=== PATIENT | female | born 1975 | race Caucasian/White ===

== ENCOUNTER 2018-10-02 21:04 | Emergency (ER) | payer OTHER, SELFPAY ==
[2018-10-02 21:09] VITALS: BP 163/100; PULSE 98; RESP 24; O2SAT 98
--- NOTE | 2018-10-02 21:18 | ED.NAVMDI ---
HPI - Nausea/Vomiting/Diarrhea General Chief complaint: Nausea/Vomiting/Diarrhea Stated complaint: nausea,vomiting Time Seen by Provider: 10/02/18 21:16 Source: patient and family Mode of arrival: ambulatory Limitations: no limitations History of Present Illness HPI Narrative: Patient is a 42-year-old female with which she states is a history of cyclic vomiting syndrome. She states that she has had a bad week she states that she has had a lot of anxiety over the week. In review of her medical history it appears that she has had multiple workups in the past for abdominal pain and the vomiting. Has been admitted to the hospital in the past for these symptoms. She states she has Zofran and Ativan at home. She took that prior to arrival here in the emergency department. She states that it has not helped. She states that when she gets into these situations that she comes to the emergency department and she gets snowed and IV fluids and admitted to the hospital for 2 or 3 days. Related Data Home Medications Medication Instructions Recorded Confirmed [ACTILACAID] 1 tab PO QDAY #0 07/27/17 coenzyme Q10 [Co Q-10] 100 mg PO QDAY #0 07/27/17 diphenhydramine HCl [Benadryl 25 mg PO Q6HP #0 07/27/17 Allergy] Previous Rx's Medication Instructions Recorded ondansetron [Zofran ODT] 4 mg SUBLINGUAL Q6HP PRN #20 odt 02/19/17 sumatriptan [Imitrex] 20 mg INTRANASAL QDAYP PRN #10 spr 02/19/17 lorazepam [Ativan] 1 mg PO BIDP PRN #5 tab 04/09/17 pantoprazole [Protonix] 40 mg PO QDAY #30 tab 06/11/17 hydrocodone-acetaminophen 0 tab PO Q6HP PRN #15 tab 07/27/17 ondansetron [Zofran ODT] 4 mg PO Q8-12H PRN #20 tab 10/03/18 Allergies Allergy/AdvReac Type Severity Reaction Status Date / Time promethazine [PROMETHAZINE] Allergy Mild ERYTHEMA Unverified 03/09/18 11:56 TO IV SITE PT STATES ABLE TO TAKE VT latex [LATEX] Allergy Unknown Unverified 03/09/18 11:56 metoclopramide AdvReac Unknown DYSTONIA Unverified 03/09/18 11:56 [METOCLOPRAMIDE] Review of Systems Cardiovascular Denies chest pain and Denies dyspnea Respiratory Denies dyspnea Gastrointestinal Gastrointestinal: Reports abdominal pain, Reports nausea and Reports vomiting Genitourinary Denies dysuria Integumentary/Breasts Denies rash PFSH Medical History Chronic abdominal pain (Acute) Cyclic vomiting syndrome (Acute) Pancreatitis (Acute) Surgical History No pertinent past surgical history (Acute) Exam Initial Vital Signs Initial Vital Signs: Vital Signs Pulse Rate 98 H 10/02/18 21:09 Respiratory Rate 24 10/02/18 21:09 Blood Pressure 163/100 H 10/02/18 21:09 Pulse Oximetry 98 10/02/18 21:09 Const General: cooperative and anxious Orientation: alert and awake Other: very hysterical, rolling around the bed, vomiting in front of me, gagging HENMT Head: normal to inspection and normocephalic Resp Effort & Inspection: normal respiratory effort Cardio Rate: regular rate GI Other: patient with tenderness throughout palpation. Would barely let me touch her without jumping and moving around the bed Skin Lesions: no lesions Rashes: no rashes Neuro General: alert and awake Speech: speech normal Extrem General: normal to inspection Other: no gross deformities Psych Appearance: disheveled Speech and Movement: agitated and restless Mood: anxious mood and angry Affect: animated and irritable affect Attitude: cooperative Course Orders Ordered: ED Orders 10/02/18 21:25 Complete Blood Count AUTO DIFF Stat Comprehensive Metabolic Panel Stat Lipase Stat Discontinued Medications Haloperidol (Haldol) 5 mg IV NOW ONE Stop: 10/02/18 21:38 Last Admin: 10/02/18 21:45 Dose: 5 mg Sodium Chloride (Normal Saline 0.9%) 1,000 mls @ 1,000 mls/hr IV BOLUS ONE Stop: 10/02/18 22:36 Last Infusion: 10/02/18 23:08 Dose: 0 mls/hr Admin: 10/02/18 21:45 Dose: 1,000 mls/hr Lorazepam (Ativan) 2 mg IV NOW ONE Stop: 10/02/18 21:38 Last Admin: 10/02/18 21:45 Dose: 2 mg Vital Signs - 8 hr 10/02/18 21:09 10/02/18 22:02 10/02/18 22:53 Pulse Rate 98 H 64 65 Respiratory Rate 24 Blood Pressure 163/100 H Blood Pressure [Right Arm] Pulse Oximetry 98 100 100 10/03/18 01:12 10/03/18 03:06 10/03/18 04:12 Pulse Rate 50 L 62 62 Respiratory Rate 16 16 Blood Pressure Blood Pressure [Right Arm] 147/97 H 106/64 99/66 Pulse Oximetry 100 100 99 MDM - Nausea/Vomiting/Diarrhea Medical Records Attestation: I reviewed the patient's medical records. Lab Data Attestation: I reviewed the patient's lab results. Result diagrams: 10/02/18 21:25 10/02/18 21:25 Lab Results 10/02/18 10/02/18 Range/Units 21:25 21:25 WBC 11.6 H (4.5-11.0) X10^3/uL RBC 4.72 (4.0-5.2) X10^6/uL Hgb 14.9 (12.0-16.0) g/dL Hct 43.4 (36-46) % MCV 92.1 (80-100) fL MCH 31.6 (26-34) PG MCHC 34.3 (30-36) % RDW 13.1 (11.6-14.8) % Plt Count 250 (150-400) X10^3/uL Neut % (Auto) 63.0 (50-75) % Lymph % (Auto) 28.7 (25-40) % [place] % (Auto) 7.0 (3-14) % Eos % (Auto) 0.2 L (2-4) % Baso % (Auto) 1.1 (0-2) % Neut # (Auto) 7300 H (4985-6757) /uL Sodium 146 H (137-145) mmol/L Potassium 3.2 L (3.4-5.1) mmol/L Chloride 96 L (98-107) mmol/L Carbon Dioxide 30 (22-32) mmol/L BUN 20 H (7-17) mg/dL Creatinine 0.90 (0.52-1.04) mg/dL Estimated GFR > 60.0 (>60) mL/min BUN/Creatinine Ratio 22.2 H (6-22) Glucose 134 H (70-100) mg/dL Calcium 10.2 (8.4-10.2) mg/dL Total Bilirubin 1.7 H (0.2-1.3) mg/dL AST 31 (14-36) IU/L ALT 24 (9-52) IU/L Alkaline Phosphatase 66 (38-126) U/L Total Protein 9.4 H (6.3-8.2) g/dL Albumin 5.3 H (3.5-5.0) g/dL Globulin 4.1 (1.7-4.1) g/dL Albumin/Globulin Ratio 1.3 (1.0-2.8) Lipase 61 (23-300) U/L MDM Narrative Medical decision making narrative: patient has remained in the emergency department for about 8 hr. During our initial evaluation the patient stated that she needed Dilaudid because that is how she has always treated for this situation. I informed her that I do not treat cyclic vomiting syndrome with opioid pain medication. I informed her that we could try non opioid alternatives. She was given Ativan and Haldol shortly after arrival and the patient spent greater than 5 hr in the room without asking for any more nausea medications. She did sleep for a period of time. Her stated whenever you gave her knocked her out I went in to re-evaluate the patient. Informed her that I could refill her Zofran. Offered her rectal Phenergan and she stated she had this medication at home. I do not feel that she needs admitted to the hospital for this. Informed her that she needed to contact her primary care doctor today to discuss further workup and any further medications if she needed this. Patient seemed very upset about our conversations and the fact that I was not giving her medications that she wanted. Discharge Plan Departure Patient Disposition: Home Clinical Impression: Nausea & vomiting Instructions: Nausea (Alternative Therapy), DI for Vomiting -- Adult, Nausea and Vomiting-Adult Activity Restrictions/Additional Instructions: I recommend you contact your primary care doctor today to discuss further workup. I recommend you drink small amounts of fluid over longer periods of time to prevent dehydration. You can use the Zofran that you were given a prescription for today or the rectal Phenergan that you have at home for the nausea. Continue all of your medications as directed. Prescriptions: New ondansetron [Zofran ODT] 4 mg tablet,disintegrating 4 mg PO Q8-12H PRN (Reason: nausea and vomiting) Qty: 20 RF: 0 No Action sumatriptan [Imitrex] 20 MG spray,non-aerosol 20 mg Intranasal QDAYP PRNQty: 10 RF: 5 ondansetron [Zofran ODT] 4 MG tablet,disintegrating 4 mg Sublingual Q6HP PRNQty: 20 RF: 0 lorazepam [Ativan] 1 MG tablet 1 mg PO BIDP PRNQty: 5 RF: 0 pantoprazole [Protonix] 40 MG tablet,delayed release (DR/EC) 40 mg PO QDAY Qty: 30 RF: 0 hydrocodone-acetaminophen 5 MG/325 MG tablet PO Q6HP PRNQty: 15 RF: 0 diphenhydramine HCl [Benadryl Allergy] 25 MG tablet 25 mg PO Q6HP Qty: 0 RF: 0 coenzyme Q10 [Co Q-10] 100 MG capsule 100 mg PO QDAY Qty: 0 RF: 0 [ACTILACAID] 1 tab PO QDAY Qty: 0 RF: 0
[2018-10-02] MEDS: SODIUM CHLORIDE 0.9% 1,000 ML 1000 ML IV (21:45)
[2018-10-02] MEDS: HALOPERIDOL 5 MG/ML VIAL IV (21:45)
[2018-10-02] MEDS: LORazepam 2 MG/ML SYRINGE IV (21:45)
[2018-10-02 21:49] LABS: Alanine Aminotransferase 24 IU/L (9-52); Albumin 5.3 g/dL (3.5-5.0); Albumin Globulin Ratio 1.3 (1.0-2.8); Alkaline Phosphatase 66 U/L (38-126); Aspartate Aminotransferase 31 IU/L (14-36); BUN Creatinine Ratio 22.2 (6-22); Bilirubin Total 1.7 mg/dL (0.2-1.3); Blood Urea Nitrogen 20 mg/dL (7-17); Calcium 10.2 mg/dL (8.4-10.2); Carbon Dioxide 30 mmol/L (22-32); Chloride 96 mmol/L (98-107); Estimated Glomerular Filt Rate > 60.0 mL/min (>60); Globulin 4.1 g/dL (1.7-4.1); Glucose 134 mg/dL (70-100); HEMOLYSIS < 15 (0-50); Lipase 61 U/L (23-300); Potassium 3.2 mmol/L (3.4-5.1); Sodium 146 mmol/L (137-145); Total Protein 9.4 g/dL (6.3-8.2)
[2018-10-02 21:50] LABS: Add Manual Diff / Slide Review NO; Basophils Percent Auto 1.1 % (0-2); Eosinophils Percent Auto 0.2 % (2-4); Hematocrit 43.4 % (36-46); Hemoglobin 14.9 g/dL (12.0-16.0); Lymphocytes Percent Auto 28.7 % (25-40); Mean Corpuscular HGB Conc 34.3 % (30-36); Mean Corpuscular Hemoglobin 31.6 PG (26-34); Mean Corpuscular Volume 92.1 fL (80-100); Neutrophils Absolute Auto 7300 /uL (3000-5900); Platelet Count 250 X10^3/uL (150-400); Red Blood Cell Count 4.72 X10^6/uL (4.0-5.2); Red Cell Distribution Width 13.1 % (11.6-14.8); White Blood Cell Count 11.6 X10^3/uL (4.5-11.0)
--- NOTE | 2018-10-02 21:55 | PC.NURSE ---
pt and spouse report frequent hx of similar episodes, states cyclic vomiting syndrome, no relief from home rx, pt alert, retching at time of exam, denies abd pain/bowel changes/urinary sx/trauma/etoh/fever or recent illness
[2018-10-02 22:02] VITALS: PULSE 64; O2SAT 100
[2018-10-02 22:53] VITALS: PULSE 65; O2SAT 100
[2018-10-03 01:12] VITALS: BP 147/97; PULSE 50; RESP 16; O2SAT 100
[2018-10-03 03:06] VITALS: BP 106/64; PULSE 62; O2SAT 100
[2018-10-03 04:12] VITALS: BP 99/66; PULSE 62; RESP 16; O2SAT 99
[2018-10-03] MEDS: ONDANSETRON 4 MG ODT PREPACK 1 BOTTLE MISC (05:15)
[2018-10-03 05:24] VITALS: BP 112/76; PULSE 74; RESP 16; TEMP 36.9; O2SAT 100
== END 2018-10-03 05:26 | disposition home or self-care (01) ==
PROVIDERS: Emergency Provider Emergency Medicine
DX: R11.2 Nausea with vomiting, unspecified (principal)
CPT/HCPCS: 36591; 80053; 83690; 85025; 96361; 96374; 96375; 99283; 99284; J1630; J2060

== ENCOUNTER 2018-10-12 20:35 | Emergency (ER) | payer OTHER, SELFPAY ==
[2018-10-12 20:46] VITALS: BP 125/93; PULSE 112; RESP 24; TEMP 36.4; O2SAT 97
--- NOTE | 2018-10-12 21:20 | ED.NAVMDI ---
HPI - Nausea/Vomiting/Diarrhea General Chief complaint: Nausea/Vomiting/Diarrhea Stated complaint: UNABLE TO KEEP ANYTHING DOWN SINCE 09/28/18 Time Seen by Provider: 10/12/18 20:49 Source: patient Mode of arrival: ambulatory Limitations: no limitations History of Present Illness HPI Narrative: Patient is a 42-year-old female who I have evaluated in this emergency department in the past for cyclic vomiting syndrome. Last time I saw the patient was approximately 2 weeks ago. During that visit a give the patient Haldol and Ativan. I refused to give her opioid pain medication. Patient was discharged home. Patient states that since then she has still been unable to keep anything down. She states she went to another hospital after her last visit however was not admitted. She returns today for continued abdominal pain and nausea and vomiting. Related Data Home Medications Medication Instructions Recorded Confirmed [ACTILACAID] 1 tab PO QDAY #0 07/27/17 coenzyme Q10 [Co Q-10] 100 mg PO QDAY #0 07/27/17 diphenhydramine HCl [Benadryl 25 mg PO Q6HP #0 07/27/17 Allergy] Previous Rx's Medication Instructions Recorded ondansetron [Zofran ODT] 4 mg SUBLINGUAL Q6HP PRN #20 odt 02/19/17 sumatriptan [Imitrex] 20 mg INTRANASAL QDAYP PRN #10 spr 02/19/17 lorazepam [Ativan] 1 mg PO BIDP PRN #5 tab 04/09/17 pantoprazole [Protonix] 40 mg PO QDAY #30 tab 06/11/17 hydrocodone-acetaminophen 0 tab PO Q6HP PRN #15 tab 07/27/17 ondansetron [Zofran ODT] 4 mg PO Q8-12H PRN #20 tab 10/03/18 Allergies Allergy/AdvReac Type Severity Reaction Status Date / Time promethazine [PROMETHAZINE] Allergy Mild ERYTHEMA Unverified 03/09/18 11:56 TO IV SITE PT STATES ABLE TO TAKE NC latex [LATEX] Allergy Unknown Unverified 03/09/18 11:56 metoclopramide AdvReac Unknown DYSTONIA Unverified 03/09/18 11:56 [METOCLOPRAMIDE] Review of Systems Constitutional Denies fever(s) Cardiovascular Denies chest pain and Denies dyspnea Respiratory Denies dyspnea Gastrointestinal Gastrointestinal: Reports abdominal pain, Reports nausea and Reports vomiting Genitourinary Denies dysuria Musculoskeletal Denies myalgias and Denies arthralgias Integumentary/Breasts Denies lesions and Denies rash Neurologic Denies confusion Psychiatric Denies confusion [facility] Medical History Chronic abdominal pain (Acute) Cyclic vomiting syndrome (Acute) Pancreatitis (Acute) Surgical History No pertinent past surgical history (Acute) Exam Initial Vital Signs Initial Vital Signs: Vital Signs Temperature 97.6 F 10/12/18 20:46 Pulse Rate 112 H 10/12/18 20:46 Respiratory Rate 24 10/12/18 20:46 Blood Pressure 125/93 H 10/12/18 20:46 Pulse Oximetry 97 10/12/18 20:46 Const General: cooperative, well groomed, in distress and other (Rolling around in the bed) Orientation: alert, awake and oriented x3 HENMT Head: normal to inspection and normocephalic Cardio Rate: tachycardic Rhythm: regular rhythm Pulses: radial pulses present GI Inspection: non-distended Palpation: soft and tender (Generalized tenderness) Skin Lesions: no lesions Rashes: no rashes Neuro General: alert, awake and oriented x3 Extrem General: normal to inspection and capillary refill normal Psych Appearance: grossly normal and well kempt Course Orders Ordered: ED Orders 10/12/18 21:35 Complete Blood Count AUTO DIFF Stat Comprehensive Metabolic Panel Stat Lipase Stat Lactated Ringer's (Lactated Ringers) 1,000 mls @ 150 mls/hr IV CONT LINDA Last Admin: 10/13/18 02:45 Dose: 150 mls/hr Discontinued Medications Haloperidol (Haldol) 5 mg IV NOW ONE Stop: 10/12/18 21:42 Last Admin: 10/12/18 21:55 Dose: 5 mg Sodium Chloride (Normal Saline 0.9%) 1,000 mls @ 1,000 mls/hr IV BOLUS ONE Stop: 10/12/18 22:40 Last Infusion: 10/12/18 22:54 Dose: 0 mls/hr Admin: 10/12/18 21:55 Dose: 1,000 mls/hr Sodium Chloride (Normal Saline 0.9%) 1,000 mls @ 1,000 mls/hr IV BOLUS ONE Stop: 10/13/18 01:46 Last Infusion: 10/13/18 00:58 Dose: 0 mls/hr Admin: 10/13/18 00:00 Dose: 1,000 mls/hr Lactated Ringer's (Lactated Ringers) 1,000 mls @ 1,000 mls/hr IV BOLUS ONE Stop: 10/13/18 01:46 Last Infusion: 10/13/18 02:00 Dose: 1,000 mls/hr Admin: 10/13/18 00:57 Dose: 1,000 mls/hr Potassium Chloride 20 meq/ (Sodium Chloride) 260 mls @ 130 mls/hr IV NOW ONE Stop: 10/13/18 03:15 Last Infusion: 10/13/18 04:00 Dose: 130 mls/hr Admin: 10/13/18 01:56 Dose: 130 mls/hr Lorazepam (Ativan) 1 mg IV NOW ONE Stop: 10/12/18 21:42 Last Admin: 10/12/18 21:55 Dose: 1 mg Ondansetron HCl (Zofran) 4 mg IV NOW ONE Stop: 10/12/18 21:42 Last Admin: 10/12/18 21:55 Dose: 4 mg Vital Signs - 8 hr 10/12/18 20:46 10/12/18 23:09 10/12/18 23:44 Temperature 97.6 F Pulse Rate 112 H 79 72 Respiratory Rate 24 14 Blood Pressure 125/93 H Blood Pressure [Left Arm] 98/61 Blood Pressure [Right Arm] Pulse Oximetry 97 97 96 10/13/18 01:41 10/13/18 04:03 Temperature Pulse Rate 65 67 Respiratory Rate 20 17 Blood Pressure Blood Pressure [Left Arm] Blood Pressure [Right Arm] 104/69 100/54 L Pulse Oximetry 99 100 MDM - Nausea/Vomiting/Diarrhea Lab Data Attestation: I reviewed the patient's lab results. Result diagrams: 10/12/18 21:35 10/12/18 21:35 Lab Results 10/12/18 10/12/18 Range/Units 21:35 21:35 WBC 8.6 (4.5-11.0) X10^3/uL RBC 5.20 (4.0-5.2) X10^6/uL Hgb 16.6 H (12.0-16.0) g/dL Hct 47.6 H (36-46) % MCV 91.4 (80-100) fL MCH 31.9 (26-34) PG MCHC 34.9 (30-36) % RDW 13.0 (11.6-14.8) % Plt Count 248 (150-400) X10^3/uL Neut % (Auto) 70.2 (50-75) % Lymph % (Auto) 22.1 L (25-40) % [place] % (Auto) 6.7 (3-14) % Eos % (Auto) 0.3 L (2-4) % Baso % (Auto) 0.7 (0-2) % Neut # (Auto) 6100 H (8258-2056) /uL Sodium 139 (137-145) mmol/L Potassium 3.0 L (3.4-5.1) mmol/L Chloride 86 L (98-107) mmol/L Carbon Dioxide 35 H (22-32) mmol/L BUN 22 H (7-17) mg/dL Creatinine 0.90 (0.52-1.04) mg/dL Estimated GFR > 60.0 (>60) mL/min BUN/Creatinine Ratio 24.4 H (6-22) Glucose 126 H (70-100) mg/dL Calcium 9.7 (8.4-10.2) mg/dL Total Bilirubin 1.1 (0.2-1.3) mg/dL AST 23 (14-36) IU/L ALT 22 (9-52) IU/L Alkaline Phosphatase 62 (38-126) U/L Total Protein 8.4 H (6.3-8.2) g/dL Albumin 4.9 (3.5-5.0) g/dL Globulin 3.5 (1.7-4.1) g/dL Albumin/Globulin Ratio 1.4 (1.0-2.8) Lipase 147 (23-300) U/L Point of Care Testing Test Results Negative Urine Dip Bedside Urine Glucose Negative Bedside Urine Bilirubin - Negative Bedside Urine Ketone + 15 Urine Specific [place] 1.020 Bedside Urine Occult Blood - Negative Bedside Urine Protein +/- 15 Bedside Urine Urobilinogen +/- 1mg Bedside Urine Nitrite - Negative Bedside Urine Leukocytes - Negative Esterase [facility] Narrative Medical decision making narrative: Patient presents today with the same symptoms that she had during her last visit here in the emergency department. Her electrolytes were unremarkable except for potassium of 3.0. This was replaced IV. Patient was given a total of 3 L of fluids. She did tolerate small amount of ice chips. Again patient was upset about being discharged home. She stated that she needed admitted to the hospital. I feel like we did everything in the emergency department that they would do as an inpatient. I rehydrated her, I replaced her electrolytes, she has nausea medication at home, I do not feel that she has an acute intra-abdominal pathology that requires CT scanning. I informed the patient that she needed to contact her GI provider at [facility]. I informed her that if her GI provider thought that she needed admitted to the hospital that they could arrange for this to happen. I informed her that we do not have a GI provider here at this hospital and that in the future it may be better for her to contact her GI provider before coming to the emergency department to see if she would be better off treated at [facility] where her specialist is located. She was instructed that she could return to the emergency department at any time if needed. Patient was obviously upset about this decision. Discharge Plan Departure Patient Disposition: Home Clinical Impression: Nausea and vomiting, Abdominal pain, Hypokalemia Instructions: DI for Vomiting -- Adult Activity Restrictions/Additional Instructions: I would recommend you contact your business law instructor later today to discuss further workup. If he/she feels like he needed admitted to the hospital then they can arrange for this to happen. I would recommend small amounts of fluid. You can do ice chips and popsicles. I would also recommend you contact your primary care doctor. Continue with the your nausea medication at home as directed. Prescriptions: No Action sumatriptan [Imitrex] 20 MG spray,non-aerosol 20 mg Intranasal QDAYP PRNQty: 10 RF: 5 ondansetron [Zofran ODT] 4 MG tablet,disintegrating 4 mg Sublingual Q6HP PRNQty: 20 RF: 0 lorazepam [Ativan] 1 MG tablet 1 mg PO BIDP PRNQty: 5 RF: 0 pantoprazole [Protonix] 40 MG tablet,delayed release (DR/EC) 40 mg PO QDAY Qty: 30 RF: 0 hydrocodone-acetaminophen 5 MG/325 MG tablet PO Q6HP PRNQty: 15 RF: 0 diphenhydramine HCl [Benadryl Allergy] 25 MG tablet 25 mg PO Q6HP Qty: 0 RF: 0 coenzyme Q10 [Co Q-10] 100 MG capsule 100 mg PO QDAY Qty: 0 RF: 0 [ACTILACAID] 1 tab PO QDAY Qty: 0 RF: 0 ondansetron [Zofran ODT] 4 mg tablet,disintegrating 4 mg PO Q8-12H PRN (Reason: nausea and vomiting) Qty: 20 RF: 0
[2018-10-12 21:54] LABS: Add Manual Diff / Slide Review NO; Alanine Aminotransferase 22 IU/L (9-52); Albumin 4.9 g/dL (3.5-5.0); Albumin Globulin Ratio 1.4 (1.0-2.8); Alkaline Phosphatase 62 U/L (38-126); Aspartate Aminotransferase 23 IU/L (14-36); BUN Creatinine Ratio 24.4 (6-22); Basophils Percent Auto 0.7 % (0-2); Bilirubin Total 1.1 mg/dL (0.2-1.3); Blood Urea Nitrogen 22 mg/dL (7-17); Calcium 9.7 mg/dL (8.4-10.2); Chloride 86 mmol/L (98-107); Eosinophils Percent Auto 0.3 % (2-4); Estimated Glomerular Filt Rate > 60.0 mL/min (>60); Globulin 3.5 g/dL (1.7-4.1); Glucose 126 mg/dL (70-100); HEMOLYSIS < 15 (0-50); Hematocrit 47.6 % (36-46); Hemoglobin 16.6 g/dL (12.0-16.0); Lipase 147 U/L (23-300); Lymphocytes Percent Auto 22.1 % (25-40); Mean Corpuscular HGB Conc 34.9 % (30-36); Mean Corpuscular Hemoglobin 31.9 PG (26-34); Mean Corpuscular Volume 91.4 fL (80-100); Monocytes Percent Auto 6.7 % (3-14); Neutrophils Absolute Auto 6100 /uL (3000-5900); Neutrophils Percent Auto 70.2 % (50-75); Platelet Count 248 X10^3/uL (150-400); Sodium 139 mmol/L (137-145); Total Protein 8.4 g/dL (6.3-8.2); White Blood Cell Count 8.6 X10^3/uL (4.5-11.0)
[2018-10-12] MEDS: LORazepam 2 MG/ML SYRINGE 1 MG IV (21:55)
[2018-10-12] MEDS: HALOPERIDOL 5 MG/ML VIAL IV (21:55)
[2018-10-12] MEDS: ONDANSETRON 4 MG/2 ML INJ IV (21:55)
[2018-10-12] MEDS: SODIUM CHLORIDE 0.9% 1,000 ML 1000 ML IV (21:55)
[2018-10-12 22:08] LABS: Carbon Dioxide 35 mmol/L (22-32)
[2018-10-12 23:09] VITALS: PULSE 79; RESP 14; O2SAT 97
[2018-10-12 23:44] VITALS: BP 98/61; PULSE 72; O2SAT 96
[2018-10-13] MEDS: SODIUM CHLORIDE 0.9% 1,000 ML 1000 ML IV
[2018-10-13] MEDS: LACTATED RINGERS 1,000 ML 1000 ML IV (00:57)
[2018-10-13 01:41] VITALS: BP 104/69; PULSE 65; RESP 20; O2SAT 99
[2018-10-13] MEDS: POTASSIUM CHLORIDE 20 MEQ in SODIUM CHLORIDE 0.9% 250 ML 130 ML IV (01:56)
[2018-10-13] MEDS: LACTATED RINGERS 1,000 ML 150 ML IV (02:45)
[2018-10-13 04:03] VITALS: BP 100/54; PULSE 67; RESP 17; O2SAT 100
== END 2018-10-13 04:30 | disposition home or self-care (01) ==
PROVIDERS: Emergency Provider Emergency Medicine; Family Provider Internal Medicine; PCP Internal Medicine
DX: E87.6 Hypokalemia (principal); R11.2 Nausea with vomiting, unspecified; R10.9 Unspecified abdominal pain
CPT/HCPCS: 36591; 80053; 81003; 81025; 83690; 85025; 96361; 96365; 96366; 96375; 99284; J1630; J2060; J2405; J3480

== ENCOUNTER 2019-08-11 08:59 | Emergency (ER) | payer OTHER, SELFPAY ==
[2019-08-11 09:11] VITALS: BP 140/85; PULSE 78; RESP 18; O2SAT 95
--- NOTE | 2019-08-11 09:25 | ED.NAVMDI ---
HPI - Nausea/Vomiting/Diarrhea <DO Omaira Henderson Last Filed: 08/11/19 09:47> General Chief complaint: Nausea/Vomiting/Diarrhea Stated complaint: Vomiting Time Seen by Provider: 08/11/19 10:01 Related Data Home Medications Medication Instructions Recorded Confirmed coenzyme Q10 [Co Q-10] 100 mg PO DAILY #0 07/27/17 08/11/19 diphenhydramine HCl [Benadryl 25 mg PO Q6HP #0 07/27/17 08/11/19 Allergy] hydrocodone-acetaminophen 1 tab PO Q6HP PRN 08/11/19 08/11/19 ibuprofen 800 mg PO DAILY 08/11/19 08/11/19 promethazine [Phenadoz] 25 mg HI TID PRN 08/11/19 08/11/19 sertraline 50 mg PO DAILY 08/11/19 08/11/19 simvastatin 5 mg PO SUSA 08/11/19 08/11/19 sumatriptan 0 mg INTRANASAL PRN PRN 08/11/19 08/11/19 Previous Rx's Medication Instructions Recorded lorazepam [Ativan] 1 mg PO BIDP PRN #5 tab 04/09/17 Allergies Allergy/AdvReac Type Severity Reaction Status Date / Time promethazine [PROMETHAZINE] Allergy Mild ERYTHEMA Verified 08/11/19 09:13 TO IV SITE PT STATES ABLE TO TAKE HI latex [LATEX] Allergy Unknown Verified 08/11/19 09:13 metoclopramide AdvReac Unknown DYSTONIA Verified 08/11/19 09:13 [METOCLOPRAMIDE] <PIPO Nichols - Last Filed: 08/11/19 16:56> General Source: patient and family Mode of arrival: ambulatory Limitations: no limitations PFSH <DO Omaira Henderson Last Filed: 08/11/19 09:47> Social History Smoking Status: Current every day smoker Exam <DO Omaira Henderson Last Filed: 08/11/19 09:47> Initial Vital Signs Initial Vital Signs: Vital Signs Pulse Rate 78 08/11/19 09:11 Respiratory Rate 18 08/11/19 09:11 Blood Pressure 140/85 08/11/19 09:11 Pulse Oximetry 95 08/11/19 09:11 <PIPO Nichols - Last Filed: 08/11/19 16:56> Initial Vital Signs Initial Vital Signs: Vital Signs Pulse Rate 78 08/11/19 09:11 Respiratory Rate 18 08/11/19 09:11 Blood Pressure 140/85 08/11/19 09:11 Pulse Oximetry 95 08/11/19 09:11 Course <Janis Saxena, - Last Filed: 08/11/19 09:47> Orders Ordered: ED Orders 08/11/19 09:45 Complete Blood Count AUTO DIFF Stat Comprehensive Metabolic Panel Stat Lipase Stat Partial Thromboplastin Time Stat Procalcitonin Stat Prothrombin Time INR Stat 08/11/19 10:31 EKG-12 Lead Stat 08/11/19 14:45 Comprehensive Metabolic Panel Stat Sodium Chloride (Normal Saline 0.9%) 1,000 mls @ 250 mls/hr IV CONT LINDA Last Admin: 08/11/19 16:19 Dose: 1,000 mls/hr Documented by: KAJAL Discontinued Medications Diphenhydramine HCl (Benadryl) 25 mg IV NOW ONE Stop: 08/11/19 09:17 Last Admin: 08/11/19 09:40 Dose: 25 mg Documented by: EDGAR Haloperidol (Haldol) 5 mg IV NOW ONE Stop: 08/11/19 11:12 Last Admin: 08/11/19 11:28 Dose: 5 mg Documented by: KAJAL Sodium Chloride (Normal Saline 0.9%) 1,000 mls @ 1,000 mls/hr IV BOLUS ONE Stop: 08/11/19 10:15 Last Infusion: 08/11/19 11:50 Dose: 0 mls/hr Documented by: Admin: 08/11/19 09:40 Dose: 1,000 mls/hr Documented by: EDGAR Potassium Chloride 40 meq/ (Sodium Chloride) 520 mls @ 130 mls/hr IV NOW ONE Stop: 08/11/19 15:10 Last Infusion: 08/11/19 12:57 Dose: 75 mls/hr Documented by: KAJAL Cosigned by: EDGAR Admin: 08/11/19 11:29 Dose: 130 mls/hr Documented by: KAJAL Cosigned by: EDGAR Sodium Chloride (Normal Saline 0.9%) 1,000 mls @ 1,000 mls/hr IV BOLUS ONE Stop: 08/11/19 12:10 Last Infusion: 08/11/19 14:30 Dose: 0 mls/hr Documented by: Admin: 08/11/19 11:29 Dose: 1,000 mls/hr Documented by: KAJAL Ketorolac Tromethamine (Toradol) 15 mg IV NOW ONE Stop: 08/11/19 11:41 Last Admin: 08/11/19 11:54 Dose: 15 mg Documented by: KAJAL Lorazepam (Ativan) 1 mg IV NOW ONE Stop: 08/11/19 11:12 Last Admin: 08/11/19 11:29 Dose: 1 mg Documented by: KAJAL Metoclopramide HCl (Reglan) 10 mg IV NOW ONE Stop: 08/11/19 12:36 Last Admin: 08/11/19 14:30 Dose: Not Given Documented by: KAJAL Ondansetron HCl (Zofran) 4 mg IV NOW ONE Stop: 08/11/19 09:16 Last Admin: 08/11/19 09:39 Dose: 4 mg Documented by: EDGAR Potassium Chloride (Potassium Chloride) 40 meq PO NOW ONE Stop: 08/11/19 15:42 Last Admin: 08/11/19 16:26 Dose: Not Given Documented by: KAJAL Potassium Chloride (Klor-Con M20) 40 meq PO NOW ONE Stop: 08/11/19 16:23 Last Admin: 08/11/19 16:26 Dose: 40 meq Documented by: KAJAL Vital Signs Vital signs: Vital Signs - 8 hr 08/11/19 09:11 08/11/19 10:08 08/11/19 11:36 Pulse Rate 78 85 78 Respiratory Rate 18 18 22 Blood Pressure 140/85 Blood Pressure [Right Arm] 110/74 134/81 Pulse Oximetry 95 96 97 <PIPO Nichols - Last Filed: 08/11/19 16:56> Orders Ordered: ED Orders 08/11/19 09:45 Complete Blood Count AUTO DIFF Stat Comprehensive Metabolic Panel Stat Lipase Stat Partial Thromboplastin Time Stat Procalcitonin Stat Prothrombin Time INR Stat 08/11/19 10:31 EKG-12 Lead Stat 08/11/19 14:45 Comprehensive Metabolic Panel Stat Sodium Chloride (Normal Saline 0.9%) 1,000 mls @ 250 mls/hr IV CONT LINDA Last Admin: 08/11/19 16:19 Dose: 1,000 mls/hr Documented by: KAJAL Discontinued Medications Diphenhydramine HCl (Benadryl) 25 mg IV NOW ONE Stop: 08/11/19 09:17 Last Admin: 08/11/19 09:40 Dose: 25 mg Documented by: EDGAR Haloperidol (Haldol) 5 mg IV NOW ONE Stop: 08/11/19 11:12 Last Admin: 08/11/19 11:28 Dose: 5 mg Documented by: KAJAL Sodium Chloride (Normal Saline 0.9%) 1,000 mls @ 1,000 mls/hr IV BOLUS ONE Stop: 08/11/19 10:15 Last Infusion: 08/11/19 11:50 Dose: 0 mls/hr Documented by: Admin: 08/11/19 09:40 Dose: 1,000 mls/hr Documented by: EDGAR Potassium Chloride 40 meq/ (Sodium Chloride) 520 mls @ 130 mls/hr IV NOW ONE Stop: 08/11/19 15:10 Last Infusion: 08/11/19 12:57 Dose: 75 mls/hr Documented by: KAJAL Cosigned by: EDGAR Admin: 08/11/19 11:29 Dose: 130 mls/hr Documented by: KAJAL Cosigned by: EDGAR Sodium Chloride (Normal Saline 0.9%) 1,000 mls @ 1,000 mls/hr IV BOLUS ONE Stop: 08/11/19 12:10 Last Infusion: 08/11/19 14:30 Dose: 0 mls/hr Documented by: Admin: 08/11/19 11:29 Dose: 1,000 mls/hr Documented by: KAJAL Ketorolac Tromethamine (Toradol) 15 mg IV NOW ONE Stop: 08/11/19 11:41 Last Admin: 08/11/19 11:54 Dose: 15 mg Documented by: KAJAL Lorazepam (Ativan) 1 mg IV NOW ONE Stop: 08/11/19 11:12 Last Admin: 08/11/19 11:29 Dose: 1 mg Documented by: KAJAL Metoclopramide HCl (Reglan) 10 mg IV NOW ONE Stop: 08/11/19 12:36 Last Admin: 08/11/19 14:30 Dose: Not Given Documented by: KAJAL Ondansetron HCl (Zofran) 4 mg IV NOW ONE Stop: 08/11/19 09:16 Last Admin: 08/11/19 09:39 Dose: 4 mg Documented by: EDGAR Potassium Chloride (Potassium Chloride) 40 meq PO NOW ONE Stop: 08/11/19 15:42 Last Admin: 08/11/19 16:26 Dose: Not Given Documented by: KAJAL Potassium Chloride (Klor-Con M20) 40 meq PO NOW ONE Stop: 08/11/19 16:23 Last Admin: 08/11/19 16:26 Dose: 40 meq Documented by: KAJAL Vital Signs Vital signs: Vital Signs - 8 hr 08/11/19 09:11 08/11/19 10:08 08/11/19 11:36 Pulse Rate 78 85 78 Respiratory Rate 18 18 22 Blood Pressure 140/85 Blood Pressure [Right Arm] 110/74 134/81 Pulse Oximetry 95 96 97 MDM - Nausea/Vomiting/Diarrhea <Janis Saxena DO - Last Filed: 08/11/19 09:47> Lab Data Result diagrams: 08/11/19 09:45 08/11/19 14:45 Labs: Lab Results 08/11/19 08/11/19 08/11/19 Range/Units 09:45 09:45 09:45 WBC 12.1 H (4.5-11.0) X10^3/uL RBC 5.07 (4.0-5.2) X10^6/uL Hgb 16.2 H (12.0-16.0) g/dL Hct 46.6 H (36-46) % MCV 91.9 (80-100) fL MCH 32.0 (26-34) PG MCHC 34.9 (30-36) % RDW 13.2 (11.6-14.8) % Plt Count 282 (150-400) X10^3/uL Neut % (Auto) 76.4 H (50-75) % Lymph % (Auto) 13.9 L (25-40) % [place] % (Auto) 8.9 (3-14) % Eos % (Auto) 0.4 L (2-4) % Baso % (Auto) 0.4 (0-2) % Neut # (Auto) 9300 H (9674-1918) /uL Lymph # (Auto) 1700 (1177-0459) /uL [place] # (Auto) 1100 H (0-900) /uL Eos # (Auto) 0 (0-450) /uL Baso # (Auto) 0 (0-100) /uL PT 12.4 (10.1-12.7) SECONDS INR 1.1 (0.9-1.3) APTT 29 (26.4-36.2) SECONDS Sodium 134 L (137-145) mmol/L Potassium 2.6 L* (3.4-5.1) mmol/L Chloride 87 L (98-107) mmol/L Carbon Dioxide 28 (22-32) mmol/L BUN 55 H (7-17) mg/dL Creatinine 2.00 H (0.52-1.04) mg/dL Estimated GFR 26.9 L (>60) mL/min BUN/Creatinine Ratio 27.5 H (6-22) Glucose 130 H (70-100) mg/dL Calcium 10.2 (8.4-10.2) mg/dL Total Bilirubin 1.3 (0.2-1.3) mg/dL AST 24 (14-36) IU/L ALT 24 (9-52) IU/L Alkaline Phosphatase 70 (38-126) U/L Total Protein 9.1 H (6.3-8.2) g/dL Albumin 5.2 H (3.5-5.0) g/dL Globulin 3.9 (1.7-4.1) g/dL Albumin/Globulin Ratio 1.3 (1.0-2.8) Lipase 98 (23-300) U/L Procalcitonin (<0.5) ng/mL 08/11/19 08/11/19 Range/Units 09:45 14:45 WBC (4.5-11.0) X10^3/uL RBC (4.0-5.2) X10^6/uL Hgb (12.0-16.0) g/dL Hct (36-46) % MCV (80-100) fL MCH (26-34) PG MCHC (30-36) % RDW (11.6-14.8) % Plt Count (150-400) X10^3/uL Neut % (Auto) (50-75) % Lymph % (Auto) (25-40) % [place] % (Auto) (3-14) % Eos % (Auto) (2-4) % Baso % (Auto) (0-2) % Neut # (Auto) (7128-6526) /uL Lymph # (Auto) (9737-9981) /uL [place] # (Auto) (0-900) /uL Eos # (Auto) (0-450) /uL Baso # (Auto) (0-100) /uL PT (10.1-12.7) SECONDS INR (0.9-1.3) APTT (26.4-36.2) SECONDS Sodium 136 L (137-145) mmol/L Potassium 2.9 L (3.4-5.1) mmol/L Chloride 97 L (98-107) mmol/L Carbon Dioxide 25 (22-32) mmol/L BUN 49 H (7-17) mg/dL Creatinine 1.30 H (0.52-1.04) mg/dL Estimated GFR 44.3 L (>60) mL/min BUN/Creatinine Ratio 37.7 H (6-22) Glucose 91 (70-100) mg/dL Calcium 8.9 (8.4-10.2) mg/dL Total Bilirubin 1.1 (0.2-1.3) mg/dL AST 19 (14-36) IU/L ALT 19 (9-52) IU/L Alkaline Phosphatase 49 (38-126) U/L Total Protein 7.0 (6.3-8.2) g/dL Albumin 4.2 (3.5-5.0) g/dL Globulin 2.8 (1.7-4.1) g/dL Albumin/Globulin Ratio 1.5 (1.0-2.8) Lipase (23-300) U/L Procalcitonin 0.06 (<0.5) ng/mL <PIPO Nichols - Last Filed: 08/11/19 16:56> Medical Records Attestation: I reviewed the patient's medical records. Lab Data Attestation: I reviewed the patient's lab results. Labs: Lab Results 08/11/19 08/11/19 08/11/19 Range/Units 09:45 09:45 09:45 WBC 12.1 H (4.5-11.0) X10^3/uL RBC 5.07 (4.0-5.2) X10^6/uL Hgb 16.2 H (12.0-16.0) g/dL Hct 46.6 H (36-46) % MCV 91.9 (80-100) fL MCH 32.0 (26-34) PG MCHC 34.9 (30-36) % RDW 13.2 (11.6-14.8) % Plt Count 282 (150-400) X10^3/uL Neut % (Auto) 76.4 H (50-75) % Lymph % (Auto) 13.9 L (25-40) % [place] % (Auto) 8.9 (3-14) % Eos % (Auto) 0.4 L (2-4) % Baso % (Auto) 0.4 (0-2) % Neut # (Auto) 9300 H (1882-8945) /uL Lymph # (Auto) 1700 (8979-4445) /uL [place] # (Auto) 1100 H (0-900) /uL Eos # (Auto) 0 (0-450) /uL Baso # (Auto) 0 (0-100) /uL PT 12.4 (10.1-12.7) SECONDS INR 1.1 (0.9-1.3) APTT 29 (26.4-36.2) SECONDS Sodium 134 L (137-145) mmol/L Potassium 2.6 L* (3.4-5.1) mmol/L Chloride 87 L (98-107) mmol/L Carbon Dioxide 28 (22-32) mmol/L BUN 55 H (7-17) mg/dL Creatinine 2.00 H (0.52-1.04) mg/dL Estimated GFR 26.9 L (>60) mL/min BUN/Creatinine Ratio 27.5 H (6-22) Glucose 130 H (70-100) mg/dL Calcium 10.2 (8.4-10.2) mg/dL Total Bilirubin 1.3 (0.2-1.3) mg/dL AST 24 (14-36) IU/L ALT 24 (9-52) IU/L Alkaline Phosphatase 70 (38-126) U/L Total Protein 9.1 H (6.3-8.2) g/dL Albumin 5.2 H (3.5-5.0) g/dL Globulin 3.9 (1.7-4.1) g/dL Albumin/Globulin Ratio 1.3 (1.0-2.8) Lipase 98 (23-300) U/L Procalcitonin (<0.5) ng/mL 08/11/19 08/11/19 Range/Units 09:45 14:45 WBC (4.5-11.0) X10^3/uL RBC (4.0-5.2) X10^6/uL Hgb (12.0-16.0) g/dL Hct (36-46) % MCV (80-100) fL MCH (26-34) PG MCHC (30-36) % RDW (11.6-14.8) % Plt Count (150-400) X10^3/uL Neut % (Auto) (50-75) % Lymph % (Auto) (25-40) % [place] % (Auto) (3-14) % Eos % (Auto) (2-4) % Baso % (Auto) (0-2) % Neut # (Auto) (7060-8861) /uL Lymph # (Auto) (3874-7870) /uL [place] # (Auto) (0-900) /uL Eos # (Auto) (0-450) /uL Baso # (Auto) (0-100) /uL PT (10.1-12.7) SECONDS INR (0.9-1.3) APTT (26.4-36.2) SECONDS Sodium 136 L (137-145) mmol/L Potassium 2.9 L (3.4-5.1) mmol/L Chloride 97 L (98-107) mmol/L Carbon Dioxide 25 (22-32) mmol/L BUN 49 H (7-17) mg/dL Creatinine 1.30 H (0.52-1.04) mg/dL Estimated GFR 44.3 L (>60) mL/min BUN/Creatinine Ratio 37.7 H (6-22) Glucose 91 (70-100) mg/dL Calcium 8.9 (8.4-10.2) mg/dL Total Bilirubin 1.1 (0.2-1.3) mg/dL AST 19 (14-36) IU/L ALT 19 (9-52) IU/L Alkaline Phosphatase 49 (38-126) U/L Total Protein 7.0 (6.3-8.2) g/dL Albumin 4.2 (3.5-5.0) g/dL Globulin 2.8 (1.7-4.1) g/dL Albumin/Globulin Ratio 1.5 (1.0-2.8) Lipase (23-300) U/L Procalcitonin 0.06 (<0.5) ng/mL ECG Data Interpretation: Normal sinus rhythm, rate 82, HI interval 127, QTC 436. No ST elevation or ST depression. No peaked T-waves, no ectopy, no tenia abnormality. EKG was also viewed by Dr. Saxena Discharge Plan Departure Prescriptions: No Action lorazepam [Ativan] 1 MG tablet 1 mg PO BIDP PRNQty: 5 RF: 0 diphenhydramine HCl [Benadryl Allergy] 25 MG tablet 25 mg PO Q6HP Qty: 0 RF: 0 coenzyme Q10 [Co Q-10] 100 MG capsule 100 mg PO DAILY Qty: 0 RF: 0 promethazine [Phenadoz] 25 mg suppository 25 mg HI TID PRN (Reason: nausea/vomiting) RF: 0 ibuprofen 800 mg tablet 800 mg PO DAILY RF: 0 sumatriptan 20 mg/actuation spray,non-aerosol 0 mg INTRANASAL PRN PRN (Reason: Migraine Headache) RF: 0 sertraline 50 mg tablet 50 mg PO DAILY RF: 0 hydrocodone-acetaminophen 5 MG/325 MG tablet 1 tab PO Q6HP PRN (Reason: pain) RF: 0 simvastatin 5 mg tablet 5 mg PO SUSA RF: 0
[2019-08-11] MEDS: ONDANSETRON 4 MG/2 ML INJ IV (09:39)
[2019-08-11] MEDS: SODIUM CHLORIDE 0.9% 1,000 ML 1000 ML IV ×3 (09:40→16:19)
[2019-08-11] MEDS: diphenhydrAMINE 50 MG/ML VIAL 25 MG IV (09:40)
[2019-08-11 09:55] LABS: Add Manual Diff / Slide Review NO; Basophils Absolute Auto 0 /uL (0-100); Basophils Percent Auto 0.4 % (0-2); Eosinophils Absolute Auto 0 /uL (0-450); Eosinophils Percent Auto 0.4 % (2-4); Hematocrit 46.6 % (36-46); Hemoglobin 16.2 g/dL (12.0-16.0); Lymphocytes Absolute Auto 1700 /uL (1100-4500); Lymphocytes Percent Auto 13.9 % (25-40); Mean Corpuscular HGB Conc 34.9 % (30-36); Mean Corpuscular Volume 91.9 fL (80-100); Monocytes Absolute Auto 1100 /uL (0-900); Monocytes Percent Auto 8.9 % (3-14); Neutrophils Absolute Auto 9300 /uL (1500-7000); Neutrophils Percent Auto 76.4 % (50-75); Platelet Count 282 X10^3/uL (150-400); Red Blood Cell Count 5.07 X10^6/uL (4.0-5.2); Red Cell Distribution Width 13.2 % (11.6-14.8); White Blood Cell Count 12.1 X10^3/uL (4.5-11.0)
[2019-08-11 10:06] LABS: INR 1.1 (0.9-1.3); Prothrombin Time 12.4 SECONDS (10.1-12.7)
[2019-08-11 10:08] VITALS: BP 110/74; PULSE 85; RESP 18; O2SAT 96
[2019-08-11 10:09] LABS: PTT Partial Thromboplastin Tim 29 SECONDS (26.4-36.2)
[2019-08-11 10:10] LABS: Alanine Aminotransferase 24 IU/L (9-52); Albumin 5.2 g/dL (3.5-5.0); Albumin Globulin Ratio 1.3 (1.0-2.8); Alkaline Phosphatase 70 U/L (38-126); Aspartate Aminotransferase 24 IU/L (14-36); BUN Creatinine Ratio 27.5 (6-22); Bilirubin Total 1.3 mg/dL (0.2-1.3); Blood Urea Nitrogen 55 mg/dL (7-17); Calcium 10.2 mg/dL (8.4-10.2); Carbon Dioxide 28 mmol/L (22-32); Chloride 87 mmol/L (98-107); Estimated Glomerular Filt Rate 26.9 mL/min (>60); Globulin 3.9 g/dL (1.7-4.1); Glucose 130 mg/dL (70-100); HEMOLYSIS < 15 (0-50); Lipase 98 U/L (23-300); Sodium 134 mmol/L (137-145); Total Protein 9.1 g/dL (6.3-8.2)
[2019-08-11 10:19] LABS: Potassium 2.6 mmol/L (3.4-5.1)
--- NOTE | 2019-08-11 11:14 | ED.NAVMDI ---
HPI - Nausea/Vomiting/Diarrhea <Heather LewPIPO - Last Filed: 08/11/19 23:18> General Chief complaint: Nausea/Vomiting/Diarrhea Stated complaint: Vomiting Time Seen by Provider: 08/11/19 10:01 Source: patient Mode of arrival: ambulatory Limitations: no limitations History of Present Illness HPI Narrative: 43-year-old female with history of cyclic vomiting, presents emergency department today complaining of cyclic vomiting since Wednesday. She states she is unable to eat or drink anything since Wednesday and has tried various medications to help. She states she has epigastric pain 10/10 as worse with vomiting, she states she often has this when she has her cyclic episodes. Patient denies headaches, chest pain, shortness of breath. She is a poor historian as she is ruling in around in bed saying that she just wants it to stop. She did not vomit during examination. Related Data Home Medications Medication Instructions Recorded Confirmed coenzyme Q10 [Co Q-10] 100 mg PO DAILY #0 07/27/17 08/11/19 diphenhydramine HCl [Benadryl 25 mg PO Q6HP #0 07/27/17 08/11/19 Allergy] hydrocodone-acetaminophen 1 tab PO Q6HP PRN 08/11/19 08/11/19 ibuprofen 800 mg PO DAILY 08/11/19 08/11/19 promethazine [Phenadoz] 25 mg AZ TID PRN 08/11/19 08/11/19 sertraline 50 mg PO DAILY 08/11/19 08/11/19 simvastatin 5 mg PO SUSA 08/11/19 08/11/19 sumatriptan 0 mg INTRANASAL PRN PRN 08/11/19 08/11/19 Previous Rx's Medication Instructions Recorded lorazepam [Ativan] 1 mg PO BIDP PRN #5 tab 04/09/17 lorazepam [Ativan] 1 mg PO BEDTIME #1 tab 08/11/19 potassium chloride 40 meq PO DAILY #2 tab 08/11/19 Allergies Allergy/AdvReac Type Severity Reaction Status Date / Time promethazine [PROMETHAZINE] Allergy Mild ERYTHEMA Verified 08/11/19 09:13 TO IV SITE PT STATES ABLE TO TAKE AZ latex [LATEX] Allergy Unknown Verified 08/11/19 09:13 metoclopramide AdvReac Unknown DYSTONIA Verified 08/11/19 09:13 [METOCLOPRAMIDE] Review of Systems <PIPO Nichols - Last Filed: 08/11/19 23:18> Review of Systems Narrative: REVIEW OF SYSTEMS: GENERAL: Denies fever or chills. HENT: No head trauma, hearing loss or sore throat. EYES: No loss of vision, double vision, eye pain, or irritation. CARDIOVASCULAR: No chest pain or syncope. RESPIRATORY: No shortness of breath or cough. GASTROINTESTINAL: Complains of cyclic vomiting, see HPI. GENITOURINARY: No flank pain or dysuria. MUSCULOSKELETAL: No pain, weakness, or deformities. INTEGUMENTARY: No rash, lesions, or pruritus. NEURO: No numbness, tingling, memory loss, or confusion. PSYCH: No behavior or mood changes. PFSH <PIPO Nichols - Last Filed: 08/11/19 23:18> Medical History Chronic abdominal pain (Acute) Cyclic vomiting syndrome (Acute) Pancreatitis (Acute) Surgical History No pertinent past surgical history (Acute) Social History Smoking Status: Current every day smoker Social History Smoking Status: Current every day smoker Exam <PIPO Nichols - Last Filed: 08/11/19 23:18> Initial Vital Signs Initial Vital Signs: Vital Signs Pulse Rate 78 08/11/19 09:11 Respiratory Rate 18 08/11/19 09:11 Blood Pressure 140/85 08/11/19 09:11 Pulse Oximetry 95 08/11/19 09:11 PHYSICAL EXAMINATION: GENERAL: Patient alert, she is noted to be moaning in pain during most of the exam. She is uncooperative during most of the examination as she states Im in fucking pain, can you do something about this. Patient avoids answering certain questions directly when she is asked where she gets her care from, which hospital she has been recently admitted to. Vital signs noted. HENT: Normocephalic, atraumatic. Hearing intact. Oral mucosa is pink and moist. EYES: Conjunctiva pink, sclera white, no periorbital swelling. CARDIOVASCULAR: S1 and S2 sounds normal. Regular rate and rhythm, no murmurs, clicks, or bruits. No pedal edema. RESPIRATORY: Normal respiratory rate, trachea midline, airway patent. No stridor, nasal flaring or accessory muscle use. Lungs are clear in all mejia without wheeze, rhonchi, or crackles. GASTROINTESTINAL: Bowel sounds normoactive. Abdomen is tender in her epigastric area with palpation. No organomegaly, no palpable masses. GENITALURINARY: No flank tenderness. MUSCULOSKELETAL: Equal tone and mass bilaterally. EXTREMITIES: CMS intact, no pedal edema. SKIN: Warm, dry, soft, appropriate color for ethnicity. No lesions, rashes, or wounds. NEURO: Alert and Oriented X 3. Good coordination. No ataxia, or sensory deficits, or cognitive issues. PSYCH: Patient was often demanding to staff, she voided answering questions about her care directly. <Janis Saxena DO - Last Filed: 08/12/19 08:35> Initial Vital Signs Initial Vital Signs: Vital Signs Pulse Rate 78 08/11/19 09:11 Respiratory Rate 18 08/11/19 09:11 Blood Pressure 140/85 08/11/19 09:11 Pulse Oximetry 95 08/11/19 09:11 Course <PIPO Nichols - Last Filed: 08/11/19 23:18> Course Course Narrative: Patient was given Ativan and Haldol and 2L of fluid. Patient also received 40 mEq of potassium IV. After administration of medication she was noted to be sleeping continually throughout the emergency department stay. She was here for 9 hours and did not vomit. Dr. Goins was consulted about her elevated creatinine/GFR labs and low potassium for admission. Dr. Goins suggested that we repeat the chemistry and then re-evaluate. A bladder scan was performed as patient refused to urinate, 120 mL was found in her bladder. Patient absolutely refused catheter, we attempted to rationalize this a few times and she refused. Dr. Goins was consulted again after second CMP draw and we noted that patient's creatinine and GFR was lower, as well as her potassium increased. Dr. Goins and stated patient did not meet admission criteria as her labs were resolving and patient was not vomiting. Patient was given 40 mEq of potassium p.o. which she continued. Patient was written for a 1 dose of Ativan as well as potassium and told to follow up with her primary care provider in the next day. I attempted to discharge patient, she became angry and started yelling. She stated ?I know when I am sick and need to be admitted. Nobody believes. I need Dilaudid for this. Nobody give to me.I had an extensive conversation with the patient her daughter than I had attempted to admit her, however, she did not meet admission criteria as I discussed with Dr. Goins due to the fact that her creatinine was decreasing, potassium was increased, she had not vomited during emergency department stay, and she was able to keep down her p.o. potassium. Patient was offered another dose of Ativan she was discharge, she stated ?I will take everything that I can get. Patient was sitting up in bed in continuing to raise her voice about how nobody believes her. Orders Ordered: Discontinued Medications Diphenhydramine HCl (Benadryl) 25 mg IV NOW ONE Stop: 08/11/19 09:17 Last Admin: 08/11/19 09:40 Dose: 25 mg Documented by: EDGAR Haloperidol (Haldol) 5 mg IV NOW ONE Stop: 08/11/19 11:12 Last Admin: 08/11/19 11:28 Dose: 5 mg Documented by: KAJAL Sodium Chloride (Normal Saline 0.9%) 1,000 mls @ 1,000 mls/hr IV BOLUS ONE Stop: 08/11/19 10:15 Last Infusion: 08/11/19 11:50 Dose: 0 mls/hr Documented by: Admin: 08/11/19 09:40 Dose: 1,000 mls/hr Documented by: EDAGR Potassium Chloride 40 meq/ (Sodium Chloride) 520 mls @ 130 mls/hr IV NOW ONE Stop: 08/11/19 15:10 Last Infusion: 08/11/19 17:48 Dose: 0 mls/hr Documented by: KAJAL Cosigned by: KIRBY Infusion: 08/11/19 12:57 Dose: 75 mls/hr Documented by: KAJAL Cosigned by: EDGAR Admin: 08/11/19 11:29 Dose: 130 mls/hr Documented by: KAJAL Cosigned by: EDGAR Sodium Chloride (Normal Saline 0.9%) 1,000 mls @ 1,000 mls/hr IV BOLUS ONE Stop: 08/11/19 12:10 Last Infusion: 08/11/19 14:30 Dose: 0 mls/hr Documented by: Admin: 08/11/19 11:29 Dose: 1,000 mls/hr Documented by: KAJAL Sodium Chloride (Normal Saline 0.9%) 1,000 mls @ 250 mls/hr IV CONT LINDA Last Infusion: 08/11/19 17:24 Dose: 0 mls/hr Documented by: Admin: 08/11/19 16:19 Dose: 1,000 mls/hr Documented by: KAJAL Ketorolac Tromethamine (Toradol) 15 mg IV NOW ONE Stop: 08/11/19 11:41 Last Admin: 08/11/19 11:54 Dose: 15 mg Documented by: KAJAL Lorazepam (Ativan) 1 mg IV NOW ONE Stop: 08/11/19 11:12 Last Admin: 08/11/19 11:29 Dose: 1 mg Documented by: KAJAL Lorazepam (Ativan) 0.5 mg IV NOW ONE Stop: 08/11/19 18:01 Last Admin: 08/11/19 18:14 Dose: 0.5 mg Documented by: BEAN Metoclopramide HCl (Reglan) 10 mg IV NOW ONE Stop: 08/11/19 12:36 Last Admin: 08/11/19 14:30 Dose: Not Given Documented by: KAJAL Ondansetron HCl (Zofran) 4 mg IV NOW ONE Stop: 08/11/19 09:16 Last Admin: 08/11/19 09:39 Dose: 4 mg Documented by: EDGAR Potassium Chloride (Potassium Chloride) 40 meq PO NOW ONE Stop: 08/11/19 15:42 Last Admin: 08/11/19 16:26 Dose: Not Given Documented by: KAJAL Potassium Chloride (Klor-Con M20) 40 meq PO NOW ONE Stop: 08/11/19 16:23 Last Admin: 08/11/19 16:26 Dose: 40 meq Documented by: KAJAL Consultations Consultation #1: Patient was staffed with Dr. Odessa Goins was consulted initially for admission, and then again for follow-up repeat labs for which she determined this patient was a candidate for discharge. Vital Signs Vital signs: Vital Signs - 8 hr 08/11/19 17:51 Pulse Rate 71 Respiratory Rate 16 Blood Pressure [Right Arm] 141/97 H Pulse Oximetry 100 <Janis Saxena DO - Last Filed: 08/12/19 08:35> Orders Ordered: Discontinued Medications Diphenhydramine HCl (Benadryl) 25 mg IV NOW ONE Stop: 08/11/19 09:17 Last Admin: 08/11/19 09:40 Dose: 25 mg Documented by: EDGAR Haloperidol (Haldol) 5 mg IV NOW ONE Stop: 08/11/19 11:12 Last Admin: 08/11/19 11:28 Dose: 5 mg Documented by: KAJAL Sodium Chloride (Normal Saline 0.9%) 1,000 mls @ 1,000 mls/hr IV BOLUS ONE Stop: 08/11/19 10:15 Last Infusion: 08/11/19 11:50 Dose: 0 mls/hr Documented by: Admin: 08/11/19 09:40 Dose: 1,000 mls/hr Documented by: EDGAR Potassium Chloride 40 meq/ (Sodium Chloride) 520 mls @ 130 mls/hr IV NOW ONE Stop: 08/11/19 15:10 Last Infusion: 08/11/19 17:48 Dose: 0 mls/hr Documented by: KAJAL Cosigned by: KIRBY Infusion: 08/11/19 12:57 Dose: 75 mls/hr Documented by: KAJAL Cosigned by: EDGAR Admin: 08/11/19 11:29 Dose: 130 mls/hr Documented by: KAJAL Cosigned by: EDGAR Sodium Chloride (Normal Saline 0.9%) 1,000 mls @ 1,000 mls/hr IV BOLUS ONE Stop: 08/11/19 12:10 Last Infusion: 08/11/19 14:30 Dose: 0 mls/hr Documented by: Admin: 08/11/19 11:29 Dose: 1,000 mls/hr Documented by: KAJAL Sodium Chloride (Normal Saline 0.9%) 1,000 mls @ 250 mls/hr IV CONT LINDA Last Infusion: 08/11/19 17:24 Dose: 0 mls/hr Documented by: Admin: 08/11/19 16:19 Dose: 1,000 mls/hr Documented by: KAJAL Ketorolac Tromethamine (Toradol) 15 mg IV NOW ONE Stop: 08/11/19 11:41 Last Admin: 08/11/19 11:54 Dose: 15 mg Documented by: KAJAL Lorazepam (Ativan) 1 mg IV NOW ONE Stop: 08/11/19 11:12 Last Admin: 08/11/19 11:29 Dose: 1 mg Documented by: KAJAL Lorazepam (Ativan) 0.5 mg IV NOW ONE Stop: 08/11/19 18:01 Last Admin: 08/11/19 18:14 Dose: 0.5 mg Documented by: BEAN Metoclopramide HCl (Reglan) 10 mg IV NOW ONE Stop: 08/11/19 12:36 Last Admin: 08/11/19 14:30 Dose: Not Given Documented by: KAJAL Ondansetron HCl (Zofran) 4 mg IV NOW ONE Stop: 08/11/19 09:16 Last Admin: 08/11/19 09:39 Dose: 4 mg Documented by: EDGAR Potassium Chloride (Potassium Chloride) 40 meq PO NOW ONE Stop: 08/11/19 15:42 Last Admin: 08/11/19 16:26 Dose: Not Given Documented by: KAJAL Potassium Chloride (Klor-Con M20) 40 meq PO NOW ONE Stop: 08/11/19 16:23 Last Admin: 08/11/19 16:26 Dose: 40 meq Documented by: KAJAL Vital Signs Vital signs: Vital Signs - 8 hr 08/11/19 17:51 Pulse Rate 71 Respiratory Rate 16 Blood Pressure [Right Arm] 141/97 H Pulse Oximetry 100 MDM - Nausea/Vomiting/Diarrhea <PIPO Nichols - Last Filed: 08/11/19 23:18> Medical Records Attestation: I reviewed the patient's medical records. Lab Data Attestation: I reviewed the patient's lab results. Result diagrams: 08/11/19 09:45 08/11/19 14:45 Labs: Lab Results 08/11/19 08/11/19 08/11/19 Range/Units 09:45 09:45 09:45 WBC 12.1 H (4.5-11.0) X10^3/uL RBC 5.07 (4.0-5.2) X10^6/uL Hgb 16.2 H (12.0-16.0) g/dL Hct 46.6 H (36-46) % MCV 91.9 (80-100) fL MCH 32.0 (26-34) PG MCHC 34.9 (30-36) % RDW 13.2 (11.6-14.8) % Plt Count 282 (150-400) X10^3/uL Neut % (Auto) 76.4 H (50-75) % Lymph % (Auto) 13.9 L (25-40) % [place] % (Auto) 8.9 (3-14) % Eos % (Auto) 0.4 L (2-4) % Baso % (Auto) 0.4 (0-2) % Neut # (Auto) 9300 H (9792-1637) /uL Lymph # (Auto) 1700 (2906-5305) /uL [place] # (Auto) 1100 H (0-900) /uL Eos # (Auto) 0 (0-450) /uL Baso # (Auto) 0 (0-100) /uL PT 12.4 (10.1-12.7) SECONDS INR 1.1 (0.9-1.3) APTT 29 (26.4-36.2) SECONDS Sodium 134 L (137-145) mmol/L Potassium 2.6 L* (3.4-5.1) mmol/L Chloride 87 L (98-107) mmol/L Carbon Dioxide 28 (22-32) mmol/L BUN 55 H (7-17) mg/dL Creatinine 2.00 H (0.52-1.04) mg/dL Estimated GFR 26.9 L (>60) mL/min BUN/Creatinine Ratio 27.5 H (6-22) Glucose 130 H (70-100) mg/dL Calcium 10.2 (8.4-10.2) mg/dL Total Bilirubin 1.3 (0.2-1.3) mg/dL AST 24 (14-36) IU/L ALT 24 (9-52) IU/L Alkaline Phosphatase 70 (38-126) U/L Total Protein 9.1 H (6.3-8.2) g/dL Albumin 5.2 H (3.5-5.0) g/dL Globulin 3.9 (1.7-4.1) g/dL Albumin/Globulin Ratio 1.3 (1.0-2.8) Lipase 98 (23-300) U/L Procalcitonin (<0.5) ng/mL 08/11/19 08/11/19 Range/Units 09:45 14:45 WBC (4.5-11.0) X10^3/uL RBC (4.0-5.2) X10^6/uL Hgb (12.0-16.0) g/dL Hct (36-46) % MCV (80-100) fL MCH (26-34) PG MCHC (30-36) % RDW (11.6-14.8) % Plt Count (150-400) X10^3/uL Neut % (Auto) (50-75) % Lymph % (Auto) (25-40) % [place] % (Auto) (3-14) % Eos % (Auto) (2-4) % Baso % (Auto) (0-2) % Neut # (Auto) (6840-3925) /uL Lymph # (Auto) (7523-6194) /uL [place] # (Auto) (0-900) /uL Eos # (Auto) (0-450) /uL Baso # (Auto) (0-100) /uL PT (10.1-12.7) SECONDS INR (0.9-1.3) APTT (26.4-36.2) SECONDS Sodium 136 L (137-145) mmol/L Potassium 2.9 L (3.4-5.1) mmol/L Chloride 97 L (98-107) mmol/L Carbon Dioxide 25 (22-32) mmol/L BUN 49 H (7-17) mg/dL Creatinine 1.30 H (0.52-1.04) mg/dL Estimated GFR 44.3 L (>60) mL/min BUN/Creatinine Ratio 37.7 H (6-22) Glucose 91 (70-100) mg/dL Calcium 8.9 (8.4-10.2) mg/dL Total Bilirubin 1.1 (0.2-1.3) mg/dL AST 19 (14-36) IU/L ALT 19 (9-52) IU/L Alkaline Phosphatase 49 (38-126) U/L Total Protein 7.0 (6.3-8.2) g/dL Albumin 4.2 (3.5-5.0) g/dL Globulin 2.8 (1.7-4.1) g/dL Albumin/Globulin Ratio 1.5 (1.0-2.8) Lipase (23-300) U/L Procalcitonin 0.06 (<0.5) ng/mL ECG Data Interpretation: Normal sinus rhythm, rate 77, AZ interval 44, QTC 442. No ST elevation or ST depression. No ectopy. No peaked T-waves or T-wave abnormalities. EKG was also viewed by Dr. Saxena. MDM Narrative Medical decision making narrative: Differential includes an episode of cyclic vomiting (history cyclic vomiting, patient reports she is having episode, continued vomiting for multiple days, lack of other symptoms that indicate systemic illness such as fever, tachycardia, or abdominal pain). Suspect that her vomiting cause severe dehydration which led to acute renal injury, especially signs her creatinine GFR significantly improved after rehydration of fluids. Additionally, her vomiting created a decreased serum potassium. This was trending upward after IV and p.o. replacement. While initially I was convinced that patient she should be admitted for rehydration and potassium monitoring, as her symptoms started to improve Dr. Goins stated she was a candidate for discharge. Patient was given 1 dose of Ativan. Strict return precautions given and follow-up instructions discussed. <Janis Saxena, DO - Last Filed: 08/12/19 08:35> Lab Data Attestation: I reviewed the patient's lab results. Labs: Lab Results 08/11/19 08/11/19 08/11/19 Range/Units 09:45 09:45 09:45 WBC 12.1 H (4.5-11.0) X10^3/uL RBC 5.07 (4.0-5.2) X10^6/uL Hgb 16.2 H (12.0-16.0) g/dL Hct 46.6 H (36-46) % MCV 91.9 (80-100) fL MCH 32.0 (26-34) PG MCHC 34.9 (30-36) % RDW 13.2 (11.6-14.8) % Plt Count 282 (150-400) X10^3/uL Neut % (Auto) 76.4 H (50-75) % Lymph % (Auto) 13.9 L (25-40) % [place] % (Auto) 8.9 (3-14) % Eos % (Auto) 0.4 L (2-4) % Baso % (Auto) 0.4 (0-2) % Neut # (Auto) 9300 H (7308-8647) /uL Lymph # (Auto) 1700 (3837-1522) /uL [place] # (Auto) 1100 H (0-900) /uL Eos # (Auto) 0 (0-450) /uL Baso # (Auto) 0 (0-100) /uL PT 12.4 (10.1-12.7) SECONDS INR 1.1 (0.9-1.3) APTT 29 (26.4-36.2) SECONDS Sodium 134 L (137-145) mmol/L Potassium 2.6 L* (3.4-5.1) mmol/L Chloride 87 L (98-107) mmol/L Carbon Dioxide 28 (22-32) mmol/L BUN 55 H (7-17) mg/dL Creatinine 2.00 H (0.52-1.04) mg/dL Estimated GFR 26.9 L (>60) mL/min BUN/Creatinine Ratio 27.5 H (6-22) Glucose 130 H (70-100) mg/dL Calcium 10.2 (8.4-10.2) mg/dL Total Bilirubin 1.3 (0.2-1.3) mg/dL AST 24 (14-36) IU/L ALT 24 (9-52) IU/L Alkaline Phosphatase 70 (38-126) U/L Total Protein 9.1 H (6.3-8.2) g/dL Albumin 5.2 H (3.5-5.0) g/dL Globulin 3.9 (1.7-4.1) g/dL Albumin/Globulin Ratio 1.3 (1.0-2.8) Lipase 98 (23-300) U/L Procalcitonin (<0.5) ng/mL 08/11/19 08/11/19 Range/Units 09:45 14:45 WBC (4.5-11.0) X10^3/uL RBC (4.0-5.2) X10^6/uL Hgb (12.0-16.0) g/dL Hct (36-46) % MCV (80-100) fL MCH (26-34) PG MCHC (30-36) % RDW (11.6-14.8) % Plt Count (150-400) X10^3/uL Neut % (Auto) (50-75) % Lymph % (Auto) (25-40) % [place] % (Auto) (3-14) % Eos % (Auto) (2-4) % Baso % (Auto) (0-2) % Neut # (Auto) (2703-0560) /uL Lymph # (Auto) (7498-5105) /uL [place] # (Auto) (0-900) /uL Eos # (Auto) (0-450) /uL Baso # (Auto) (0-100) /uL PT (10.1-12.7) SECONDS INR (0.9-1.3) APTT (26.4-36.2) SECONDS Sodium 136 L (137-145) mmol/L Potassium 2.9 L (3.4-5.1) mmol/L Chloride 97 L (98-107) mmol/L Carbon Dioxide 25 (22-32) mmol/L BUN 49 H (7-17) mg/dL Creatinine 1.30 H (0.52-1.04) mg/dL Estimated GFR 44.3 L (>60) mL/min BUN/Creatinine Ratio 37.7 H (6-22) Glucose 91 (70-100) mg/dL Calcium 8.9 (8.4-10.2) mg/dL Total Bilirubin 1.1 (0.2-1.3) mg/dL AST 19 (14-36) IU/L ALT 19 (9-52) IU/L Alkaline Phosphatase 49 (38-126) U/L Total Protein 7.0 (6.3-8.2) g/dL Albumin 4.2 (3.5-5.0) g/dL Globulin 2.8 (1.7-4.1) g/dL Albumin/Globulin Ratio 1.5 (1.0-2.8) Lipase (23-300) U/L Procalcitonin 0.06 (<0.5) ng/mL MDM Narrative Medical decision making narrative: Patient case was discussed at length throughout patient stay. Plan for admission and hospitalist was contacted as patient has hypokalemia and acute kidney injury. Refused by hospitalist requesting repeat lytes and creatinine. Patient had received IV hydration, 40meq K IV and creatinine was down to 1.3 from 2.0, patient K improved from 2.6 to 2.9. Patient did have urine on bladder scan, but did not give sample and refused cathterization. Concern for obstructive cause for MARCELLA is low, suspect 2nd to prerenal causes. Patient was able to tolerate 40meq po and was able to keep it down without continued emesis in the department, Dr. Goins was recontacted and deferred admission to hospital. Patient was discharged home with additional po ativan as she finds her rectal phenergan not helpful. Patient was quite frustrated with her hospital stay today. Discharge Plan Departure Patient Disposition: Home Clinical Impression: Acute kidney injury Nausea and vomiting Qualifiers: Vomiting type: cyclical vomiting Vomiting Intractability: intractable Qualified Code(s): G43.A1 - Cyclical vomiting, intractable Cyclical vomiting Qualifiers: Vomiting Intractability: intractable Nausea presence: with nausea Qualified Code(s): G43.A1 - Cyclical vomiting, intractable Discharge Date/Time: 08/11/19 18:27 Instructions: Acute Renal Failure, DI for Vomiting -- Adult Activity Restrictions/Additional Instructions: Thank you for entrusting me with your care today. As discussed, your kidney labs were elevated, we gave you a large amount of fluid and they have improved slightly. Your potassium was very low due to your vomiting. I have given you a dose of potassium to take at as well as a dose of Ativan to take later this evening if you began to feel nauseated. Please follow up with her primary care provider in the next week. Return to the emergency department if you develop high fevers, syncope, chest pain, shortness of breath, dizziness, high fevers, or other concerning symptoms. Prescriptions: New lorazepam [Ativan] 1 mg tablet 1 mg PO BEDTIME Qty: 1 RF: 0 potassium chloride 20 mEq tablet extended release 40 meq PO DAILY Qty: 2 RF: 0 No Action lorazepam [Ativan] 1 MG tablet 1 mg PO BIDP PRNQty: 5 RF: 0 diphenhydramine HCl [Benadryl Allergy] 25 MG tablet 25 mg PO Q6HP Qty: 0 RF: 0 coenzyme Q10 [Co Q-10] 100 MG capsule 100 mg PO DAILY Qty: 0 RF: 0 promethazine [Phenadoz] 25 mg suppository 25 mg [place] TID PRN (Reason: nausea/vomiting) RF: 0 ibuprofen 800 mg tablet 800 mg PO DAILY RF: 0 sumatriptan 20 mg/actuation spray,non-aerosol 0 mg INTRANASAL PRN PRN (Reason: Migraine Headache) RF: 0 sertraline 50 mg tablet 50 mg PO DAILY RF: 0 hydrocodone-acetaminophen 5 MG/325 MG tablet 1 tab PO Q6HP PRN (Reason: pain) RF: 0 simvastatin 5 mg tablet 5 mg PO SUSA RF: 0 Referrals: Joanna Storm MD [Primary Care Provider] -
[2019-08-11] MEDS: HALOPERIDOL 5 MG/ML VIAL IV (11:28)
[2019-08-11] MEDS: LORazepam 2 MG/ML INJ 1 MG IV (11:29)
[2019-08-11] MEDS: POTASSIUM CHLORIDE 40 MEQ in SODIUM CHLORIDE 0.9% 500 ML 130 ML IV (11:29)
[2019-08-11 11:36] VITALS: BP 134/81; PULSE 78; RESP 22; O2SAT 97
[2019-08-11] MEDS: KETOROLAC 60 MG/2 ML VIAL 15 MG IV (11:54)
[2019-08-11 13:09] LABS: Procalcitonin 0.06 ng/mL (<0.5)
--- NOTE | 2019-08-11 14:23 | PC.NURSE ---
Had pt get up to commode, reports unable urinate at this time. refused placement of staples catheter.
[2019-08-11 15:24] LABS: Alanine Aminotransferase 19 IU/L (9-52); Albumin 4.2 g/dL (3.5-5.0); Albumin Globulin Ratio 1.5 (1.0-2.8); Alkaline Phosphatase 49 U/L (38-126); Aspartate Aminotransferase 19 IU/L (14-36); BUN Creatinine Ratio 37.7 (6-22); Bilirubin Total 1.1 mg/dL (0.2-1.3); Blood Urea Nitrogen 49 mg/dL (7-17); Calcium 8.9 mg/dL (8.4-10.2); Carbon Dioxide 25 mmol/L (22-32); Chloride 97 mmol/L (98-107); Estimated Glomerular Filt Rate 44.3 mL/min (>60); Globulin 2.8 g/dL (1.7-4.1); Glucose 91 mg/dL (70-100); HEMOLYSIS 16 (0-50); Potassium 2.9 mmol/L (3.4-5.1); Sodium 136 mmol/L (137-145)
[2019-08-11] MEDS: POTASSIUM CHLORIDE 20 MEQ TAB 40 MEQ PO (16:26)
--- NOTE | 2019-08-11 16:30 | PC.NURSE ---
PT throughout visit appears to be sleeping with eyes closed after ativan and haldol. Had complained of pain in IV. had turned potassium down to 75ml. states burnings has improved. Did try to get up to commode but unable to urinate at 1450. declined liquid potassium put able to take tablets.
[2019-08-11 17:51] VITALS: BP 141/97; PULSE 71; RESP 16; O2SAT 100
[2019-08-11] MEDS: LORazepam 2 MG/ML INJ 0.5 MG IV (18:14)
--- NOTE | 2019-08-11 18:22 | PC.NURSE ---
Pt DC'd from ED with daugther. DC instructions provided and pt advised when to return. pt agitated when rec'ing instructions. MARIE Romero made aware. advised pt that the admitting team denied her admission. yelling at RN stating i hope you feel bad when i have to come back here Heather provided pt with 2nd dose of Ativan for cyclic nausea. pt yelling I need dilaudid! Heather advised dilaudid will not be administered. pt mumbling under breath. when asked if she had any questions pt stated absolutely not pt got out of bed quickly and ambulated out ED doors with steady gait.
== END 2019-08-11 18:27 | disposition home or self-care (01) ==
PROVIDERS: Emergency Medicine; Emergency Provider Nurse Practitioner; Family Provider Internal Medicine; PCP Internal Medicine
DX: N17.9 Acute kidney failure, unspecified (principal); G43.A1 Cyclical vomiting, in migraine, intractable
CPT/HCPCS: 36415; 51798; 80053; 83690; 84145; 85025; 85610; 85730; 93005; 93010; 96361; 96374; 96375; 96376; 99284; 99285; J1200; J1630; J1885; J2060; J2405; J3480

== ENCOUNTER 2019-11-06 22:00 | Emergency (ER) | payer OTHER, SELFPAY ==
[2019-11-06 22:17] VITALS: BP 111/74; PULSE 95; RESP 18; TEMP 36.7; O2SAT 96; BMI 20.7
--- NOTE | 2019-11-06 22:30 | ED_ITS ---
HPI - Nausea/Vomiting/Diarrhea <Brady Huerta DO - Last Filed: 11/07/19 20:32> General Chief complaint: Nausea/Vomiting/Diarrhea Stated complaint: vomiting Time Seen by Provider: 11/06/19 22:24 Source: patient Mode of arrival: Wheelchair Limitations: no limitations History of Present Illness HPI Narrative: 43-year-old female with history of cyclic vomiting syndrome here for evaluation of 5 days of abdominal pain and vomiting. She has multiple different nausea medications at home and states that she has been using them for they have not been working. States this is not new for her. Related Data Home Medications Medication Instructions Recorded Confirmed coenzyme Q10 [Co Q-10] 100 mg PO DAILY #0 07/27/17 08/11/19 diphenhydramine HCl [Benadryl 25 mg PO Q6HP #0 07/27/17 08/11/19 Allergy] hydrocodone-acetaminophen 1 tab PO Q6HP PRN 08/11/19 08/11/19 ibuprofen 800 mg PO DAILY 08/11/19 08/11/19 promethazine [Phenadoz] 25 mg PA TID PRN 08/11/19 08/11/19 sertraline 50 mg PO DAILY 08/11/19 11/07/19 sumatriptan 0 mg INTRANASAL PRN PRN 08/11/19 11/07/19 amitriptyline See Rx Instructions .ROUTE .COMPLEX 11/07/19 11/07/19 lorazepam 0.5 mg PO Q4-6H PRN 11/07/19 11/07/19 simvastatin 5 mg PO SUSA 11/07/19 11/07/19 Previous Rx's Medication Instructions Recorded potassium chloride 40 meq PO DAILY #2 tab 08/11/19 ondansetron 4 mg PO Q8H PRN #10 tab 11/07/19 Allergies Allergy/AdvReac Type Severity Reaction Status Date / Time promethazine [PROMETHAZINE] Allergy Mild ERYTHEMA Verified 08/11/19 09:13 TO IV SITE PT STATES ABLE TO TAKE PA latex [LATEX] Allergy Unknown Verified 08/11/19 09:13 metoclopramide AdvReac Unknown DYSTONIA Verified 08/11/19 09:13 [METOCLOPRAMIDE] Review of Systems <DO Omaira Leong Last Filed: 11/07/19 20:32> Constitutional Constitutional: Denies fever(s) Cardiovascular Cardiovascular: Denies chest pain and Denies dyspnea Respiratory Respiratory: Denies dyspnea Gastrointestinal Gastrointestinal: Reports abdominal pain, Denies change in stool character, Reports nausea and Reports vomiting Musculoskeletal Musculoskeletal: Denies myalgias Integumentary/Breasts Skin/Breast: Denies rash Neurologic Neurologic: Denies behavioral changes Psychiatric Psychiatric: Denies behavioral changes Hematologic/Lymphatic Hematologic/Lymphatic: Denies easy bleeding and Denies easy bruising Patient History <DO Omaira Leong Last Filed: 11/07/19 20:32> Medical History Chronic abdominal pain (Acute) Cyclic vomiting syndrome (Acute) Pancreatitis (Acute) Social History Smoking Status: Current every day smoker Smoking Status: Current every day smoker alcohol intake frequency: 0-2 drinks per day Substance Use Type: marijuana Exam <DO Omaira Leong Last Filed: 11/07/19 20:32> Initial Vital Signs Initial Vital Signs: Vital Signs Temperature 98.1 F 11/06/19 22:17 Pulse Rate 95 H 11/06/19 22:17 Respiratory Rate 18 11/06/19 22:17 Blood Pressure 111/74 11/06/19 22:17 Pulse Oximetry 96 11/06/19 22:17 Const Orientation: alert and awake Other: Crying HENMT Head: normal to inspection and normocephalic Resp Effort & Inspection: normal respiratory effort Cardio Rate: regular rate GI Palpation: tender Skin Lesions: no lesions Rashes: no rashes Neuro General: alert and awake Psych Speech and Movement: agitated and restless Affect: irritable affect <Savannah Reich DO - Last Filed: 11/07/19 11:51> Initial Vital Signs Initial Vital Signs: Vital Signs Temperature 98.1 F 11/06/19 22:17 Pulse Rate 95 H 11/06/19 22:17 Respiratory Rate 18 11/06/19 22:17 Blood Pressure 111/74 11/06/19 22:17 Pulse Oximetry 96 11/06/19 22:17 Course <DO Omaira Leong Last Filed: 11/07/19 20:32> Orders Ordered: Discontinued Medications Haloperidol (Haldol) 5 mg IV NOW ONE Stop: 11/07/19 00:04 Last Admin: 11/07/19 04:03 Dose: Not Given Documented by: STAS Haloperidol (Haldol) 5 mg IM NOW ONE Stop: 11/07/19 00:05 Last Admin: 11/07/19 00:31 Dose: 5 mg Documented by: LANETTE Sodium Chloride (Normal Saline 0.9%) 1,000 mls @ 1,000 mls/hr IV BOLUS ONE Stop: 11/06/19 23:28 Last Infusion: 11/07/19 04:01 Dose: 0 mls/hr Documented by: Admin: 11/07/19 02:38 Dose: 1,000 mls/hr Documented by: LANETTE Potassium Chloride 40 meq/ (Sodium Chloride) 520 mls @ 130 mls/hr IV NOW ONE Stop: 11/07/19 07:20 Last Infusion: 11/07/19 08:43 Dose: 0 mls/hr Documented by: LUIS Cosigned by: BEAN Admin: 11/07/19 03:48 Dose: 130 mls/hr Documented by: STAS Cosigned by: LANETTE Lactated Ringer's (Lactated Ringers) 1,000 mls @ 1,000 mls/hr IV BOLUS ONE Stop: 11/07/19 04:21 Last Infusion: 11/07/19 08:43 Dose: 0 mls/hr Documented by: Admin: 11/07/19 03:48 Dose: 1,000 mls/hr Documented by: STAS Lorazepam (Ativan) 1 mg IV NOW ONE Stop: 11/06/19 22:30 Last Admin: 11/07/19 04:02 Dose: Not Given Documented by: STAS Lorazepam (Ativan) 2 mg IM NOW ONE Stop: 11/07/19 00:05 Last Admin: 11/07/19 00:32 Dose: 2 mg Documented by: LANETTE Vital Signs Vital signs: Vital Signs - 8 hr 11/07/19 04:04 11/07/19 07:54 11/07/19 08:51 Pulse Rate 88 77 77 Respiratory Rate 27 H 16 15 Blood Pressure [Left Arm] 112/85 116/77 Pulse Oximetry 92 97 96 <Savannah Reich, - Last Filed: 11/07/19 11:51> Orders Ordered: Discontinued Medications Haloperidol (Haldol) 5 mg IV NOW ONE Stop: 11/07/19 00:04 Last Admin: 11/07/19 04:03 Dose: Not Given Documented by: STAS Haloperidol (Haldol) 5 mg IM NOW ONE Stop: 11/07/19 00:05 Last Admin: 11/07/19 00:31 Dose: 5 mg Documented by: LANETTE Sodium Chloride (Normal Saline 0.9%) 1,000 mls @ 1,000 mls/hr IV BOLUS ONE Stop: 11/06/19 23:28 Last Infusion: 11/07/19 04:01 Dose: 0 mls/hr Documented by: Admin: 11/07/19 02:38 Dose: 1,000 mls/hr Documented by: LANETTE Potassium Chloride 40 meq/ (Sodium Chloride) 520 mls @ 130 mls/hr IV NOW ONE Stop: 11/07/19 07:20 Last Infusion: 11/07/19 08:43 Dose: 0 mls/hr Documented by: LUIS Cosigned by: BEAN Admin: 11/07/19 03:48 Dose: 130 mls/hr Documented by: STAS Cosigned by: LANETTE Lactated Ringer's (Lactated Ringers) 1,000 mls @ 1,000 mls/hr IV BOLUS ONE Stop: 11/07/19 04:21 Last Infusion: 11/07/19 08:43 Dose: 0 mls/hr Documented by: Admin: 11/07/19 03:48 Dose: 1,000 mls/hr Documented by: STAS Lorazepam (Ativan) 1 mg IV NOW ONE Stop: 11/06/19 22:30 Last Admin: 11/07/19 04:02 Dose: Not Given Documented by: STAS Lorazepam (Ativan) 2 mg IM NOW ONE Stop: 11/07/19 00:05 Last Admin: 11/07/19 00:32 Dose: 2 mg Documented by: LANETTE Vital Signs Vital signs: Vital Signs - 8 hr 11/07/19 04:04 11/07/19 07:54 11/07/19 08:51 Pulse Rate 88 77 77 Respiratory Rate 27 H 16 15 Blood Pressure [Left Arm] 112/85 116/77 Pulse Oximetry 92 97 96 MDM - Nausea/Vomiting/Diarrhea <Brady Huerta DO - Last Filed: 11/07/19 20:32> Medical Records Attestation: I reviewed the patient's medical records. Lab Data Attestation: I reviewed the patient's lab results. Result diagrams: 11/07/19 02:48 11/07/19 08:55 Labs: Lab Results 11/07/19 11/07/19 11/07/19 Range/Units 02:48 02:48 02:48 WBC 8.6 (4.5-11.0) X10^3/uL RBC 5.18 (4.0-5.2) X10^6/uL Hgb 16.6 H (12.0-16.0) g/dL Hct 47.1 H (36-46) % MCV 91.1 (80-100) fL MCH 32.0 (26-34) PG MCHC 35.2 (30-36) % RDW 12.8 (11.6-14.8) % Plt Count 288 (150-400) X10^3/uL Neut % (Auto) 68.4 (50-75) % Lymph % (Auto) 15.8 L (25-40) % [place] % (Auto) 9.1 (3-14) % Eos % (Auto) 3.0 (2-4) % Baso % (Auto) 3.7 H (0-2) % Neut # (Auto) 5900 (9248-1686) /uL Lymph # (Auto) 1400 (6175-9142) /uL [place] # (Auto) 800 (0-900) /uL Eos # (Auto) 300 (0-450) /uL Baso # (Auto) 300 H (0-100) /uL Sodium 133 L (137-145) mmol/L Potassium 2.7 L* (3.4-5.1) mmol/L Chloride 76 L* (98-107) mmol/L Carbon Dioxide 43 H* (22-32) mmol/L BUN 60 H (7-17) mg/dL Creatinine 1.40 H (0.52-1.04) mg/dL Estimated GFR 40.7 L (>60) mL/min BUN/Creatinine Ratio 42.9 H (6-22) Glucose 136 H (70-100) mg/dL Calcium 10.1 (8.4-10.2) mg/dL Serum , Qual Negative (Negative) 11/07/19 Range/Units 08:55 WBC (4.5-11.0) X10^3/uL RBC (4.0-5.2) X10^6/uL Hgb (12.0-16.0) g/dL Hct (36-46) % MCV (80-100) fL MCH (26-34) PG MCHC (30-36) % RDW (11.6-14.8) % Plt Count (150-400) X10^3/uL Neut % (Auto) (50-75) % Lymph % (Auto) (25-40) % [place] % (Auto) (3-14) % Eos % (Auto) (2-4) % Baso % (Auto) (0-2) % Neut # (Auto) (6988-4565) /uL Lymph # (Auto) (2271-0975) /uL [place] # (Auto) (0-900) /uL Eos # (Auto) (0-450) /uL Baso # (Auto) (0-100) /uL Sodium 136 L (137-145) mmol/L Potassium 3.1 L (3.4-5.1) mmol/L Chloride 87 L (98-107) mmol/L Carbon Dioxide 39 H (22-32) mmol/L BUN 49 H (7-17) mg/dL Creatinine 1.20 H (0.52-1.04) mg/dL Estimated GFR 48.6 L (>60) mL/min BUN/Creatinine Ratio 40.8 H (6-22) Glucose 105 H (70-100) mg/dL Calcium 9.5 (8.4-10.2) mg/dL Serum , Qual (Negative) [facility] Narrative Medical decision making narrative: Multiple attempts at obtaining peripheral IV in the patient unsuccessful so the PICC nurse was consulted who came and placed a double-lumen IV guided IV. Prior to this I did inform the patient that it would be a period of time before this nurse would be here and I offered her IM medications which the patient agreed to. IV was placed without problems. IV fluids were administered. Patient is hypokalemic and had other electrolyte issues. I do suspect the patient has a degree of dehydration. Patient has been sleeping in the room since the IM medications. Replacing potassium. Patient has been sleeping all night. Potassium being replaced. Care turned over today provider to follow-up once potassium is administered <Savannah Rachana, DO - Last Filed: 11/07/19 11:51> Lab Data Attestation: I reviewed the patient's lab results. Labs: Lab Results 11/07/19 11/07/19 11/07/19 Range/Units 02:48 02:48 02:48 WBC 8.6 (4.5-11.0) X10^3/uL RBC 5.18 (4.0-5.2) X10^6/uL Hgb 16.6 H (12.0-16.0) g/dL Hct 47.1 H (36-46) % MCV 91.1 (80-100) fL MCH 32.0 (26-34) PG MCHC 35.2 (30-36) % RDW 12.8 (11.6-14.8) % Plt Count 288 (150-400) X10^3/uL Neut % (Auto) 68.4 (50-75) % Lymph % (Auto) 15.8 L (25-40) % [place] % (Auto) 9.1 (3-14) % Eos % (Auto) 3.0 (2-4) % Baso % (Auto) 3.7 H (0-2) % Neut # (Auto) 5900 (0097-3956) /uL Lymph # (Auto) 1400 (7247-2393) /uL [place] # (Auto) 800 (0-900) /uL Eos # (Auto) 300 (0-450) /uL Baso # (Auto) 300 H (0-100) /uL Sodium 133 L (137-145) mmol/L Potassium 2.7 L* (3.4-5.1) mmol/L Chloride 76 L* (98-107) mmol/L Carbon Dioxide 43 H* (22-32) mmol/L BUN 60 H (7-17) mg/dL Creatinine 1.40 H (0.52-1.04) mg/dL Estimated GFR 40.7 L (>60) mL/min BUN/Creatinine Ratio 42.9 H (6-22) Glucose 136 H (70-100) mg/dL Calcium 10.1 (8.4-10.2) mg/dL Serum , Qual Negative (Negative) 11/07/19 Range/Units 08:55 WBC (4.5-11.0) X10^3/uL RBC (4.0-5.2) X10^6/uL Hgb (12.0-16.0) g/dL Hct (36-46) % MCV (80-100) fL MCH (26-34) PG MCHC (30-36) % RDW (11.6-14.8) % Plt Count (150-400) X10^3/uL Neut % (Auto) (50-75) % Lymph % (Auto) (25-40) % [place] % (Auto) (3-14) % Eos % (Auto) (2-4) % Baso % (Auto) (0-2) % Neut # (Auto) (3145-5839) /uL Lymph # (Auto) (0482-0839) /uL [place] # (Auto) (0-900) /uL Eos # (Auto) (0-450) /uL Baso # (Auto) (0-100) /uL Sodium 136 L (137-145) mmol/L Potassium 3.1 L (3.4-5.1) mmol/L Chloride 87 L (98-107) mmol/L Carbon Dioxide 39 H (22-32) mmol/L BUN 49 H (7-17) mg/dL Creatinine 1.20 H (0.52-1.04) mg/dL Estimated GFR 48.6 L (>60) mL/min BUN/Creatinine Ratio 40.8 H (6-22) Glucose 105 H (70-100) mg/dL Calcium 9.5 (8.4-10.2) mg/dL Serum , Qual (Negative) MDM Narrative Medical decision making narrative: Patient signed out to me by Dr. Asif seen evaluated patient myself. Repeat blood work is overall reassuring and improved. She is tolerating oral fluids. She is requesting a prescription of Ativan and Zofran at discharge. I've explained her that I'm happy to give her an anti nausea medications such as Zofran however she will need to talk to her PCP in regards to her Ativan prescription. Discharge Plan Departure Patient Disposition: Home Clinical Impression: Cyclic vomiting syndrome Discharge Date/Time: 11/07/19 12:47 Instructions: DI for Vomiting -- Adult Activity Restrictions/Additional Instructions: *You have been diagnosed with cyclic vomiting *What to do: Increase fluid intake recommend Gatorade or Gatorade like substance to help replenish your electrolytes If you should need prescription for Ativan or pain medication you need to see her primary care provider for this will not be provided by the emergency department *Continue to take medications as directed Zofran 4 mg every 8 hours if needed for nausea or vomiting *Follow up with your primary care provider in 2-3 days *Return to ER if you should have persistent vomiting increasing abdominal pain inability to tolerate fluids or any new, worsening or concerning symptoms Prescriptions: New ondansetron 4 mg tablet,disintegrating 4 mg PO Q8H PRN (Reason: nausea and vomiting) Qty: 10 RF: 0 No Action diphenhydramine HCl [Benadryl Allergy] 25 MG tablet 25 mg PO Q6HP Qty: 0 RF: 0 coenzyme Q10 [Co Q-10] 100 MG capsule 100 mg PO DAILY Qty: 0 RF: 0 amitriptyline 25 mg tablet See Rx Instructions .ROUTE .COMPLEX RF: 0 lorazepam 0.5 mg tablet 0.5 mg PO Q4-6H PRN (Reason: Anxiety) RF: 0 simvastatin 5 mg tablet 5 mg PO SUSA RF: 0 promethazine [Phenadoz] 25 mg suppository 25 mg PA TID PRN (Reason: nausea/vomiting) RF: 0 ibuprofen 800 mg tablet 800 mg PO DAILY RF: 0 sumatriptan 20 mg/actuation spray,non-aerosol 0 mg INTRANASAL PRN PRN (Reason: Migraine Headache) RF: 0 sertraline 50 mg tablet 50 mg PO DAILY RF: 0 hydrocodone-acetaminophen 5 MG/325 MG tablet 1 tab PO Q6HP PRN (Reason: pain) RF: 0 potassium chloride 20 mEq tablet extended release 40 meq PO DAILY Qty: 2 RF: 0 Referrals: Joanna Storm MD [Primary Care Provider] -
[2019-11-07] MEDS: HALOPERIDOL 5 MG/ML VIAL IM (00:31)
[2019-11-07] MEDS: LORazepam 2 MG/ML INJ IM (00:32)
[2019-11-07 00:46] VITALS: BP 126/96; PULSE 92; O2SAT 94
--- NOTE | 2019-11-07 02:01 | PC.NURSE ---
We have been unable to place PIV despite multiple attempts. PICC RN now at bedside for midline. Time out complete in my presence.
[2019-11-07 02:10] VITALS: BP 122/83; PULSE 83; O2SAT 93
[2019-11-07] MEDS: SODIUM CHLORIDE 0.9% 1,000 ML 1000 ML IV (02:38)
[2019-11-07 02:53] VITALS: BP 118/88; PULSE 93; RESP 95; O2SAT 95
[2019-11-07 02:59] LABS: Add Manual Diff / Slide Review NO; Basophils Absolute Auto 300 /uL (0-100); Basophils Percent Auto 3.7 % (0-2); Eosinophils Absolute Auto 300 /uL (0-450); Hematocrit 47.1 % (36-46); Hemoglobin 16.6 g/dL (12.0-16.0); Lymphocytes Absolute Auto 1400 /uL (1100-4500); Lymphocytes Percent Auto 15.8 % (25-40); Mean Corpuscular HGB Conc 35.2 % (30-36); Mean Corpuscular Volume 91.1 fL (80-100); Monocytes Absolute Auto 800 /uL (0-900); Monocytes Percent Auto 9.1 % (3-14); Neutrophils Absolute Auto 5900 /uL (1500-7000); Neutrophils Percent Auto 68.4 % (50-75); Platelet Count 288 X10^3/uL (150-400); Red Blood Cell Count 5.18 X10^6/uL (4.0-5.2); Red Cell Distribution Width 12.8 % (11.6-14.8); White Blood Cell Count 8.6 X10^3/uL (4.5-11.0)
[2019-11-07 03:05] LABS: BUN Creatinine Ratio 42.9 (6-22); Blood Urea Nitrogen 60 mg/dL (7-17); Calcium 10.1 mg/dL (8.4-10.2); Estimated Glomerular Filt Rate 40.7 mL/min (>60); Glucose 136 mg/dL (70-100)
[2019-11-07 03:12] LABS: HEMOLYSIS 16 (0-50)
[2019-11-07 03:16] LABS: Pregnancy Test Serum,Qual Negative (Negative)
[2019-11-07 03:18] LABS: Chloride 76 mmol/L (98-107); Potassium 2.7 mmol/L (3.4-5.1)
[2019-11-07 03:19] LABS: Carbon Dioxide 43 mmol/L (22-32)
[2019-11-07 03:20] LABS: Sodium 133 mmol/L (137-145)
[2019-11-07] MEDS: LACTATED RINGERS 1,000 ML 1000 ML IV (03:48)
[2019-11-07] MEDS: POTASSIUM CHLORIDE 40 MEQ in SODIUM CHLORIDE 0.9% 500 ML 130 ML IV (03:48)
[2019-11-07 04:04] VITALS: BP 112/85; PULSE 88; RESP 27; O2SAT 92
[2019-11-07 07:54] VITALS: PULSE 77; RESP 16; O2SAT 97
[2019-11-07 08:51] VITALS: BP 116/77; PULSE 77; RESP 15; O2SAT 96
[2019-11-07 09:12] LABS: BUN Creatinine Ratio 40.8 (6-22); Blood Urea Nitrogen 49 mg/dL (7-17); Calcium 9.5 mg/dL (8.4-10.2); Carbon Dioxide 39 mmol/L (22-32); Chloride 87 mmol/L (98-107); Estimated Glomerular Filt Rate 48.6 mL/min (>60); Glucose 105 mg/dL (70-100); HEMOLYSIS < 15 (0-50); Potassium 3.1 mmol/L (3.4-5.1); Sodium 136 mmol/L (137-145)
--- NOTE | 2019-11-07 10:09 | PC.NURSE ---
Pt became very upset and agitated when I went in to discharge her. Provider had stated she would not receive any controlled substances at this time and referred her to her primary care provider. Refused to let me remove her midline insisting that it could be kept in. Asking to see another provider. Rasheeda Figueroa in to discuss w/ patient.
== END 2019-11-07 12:47 | disposition home or self-care (01) ==
PROVIDERS: Emergency Medicine; Emergency Provider Emergency Medicine; Family Provider Internal Medicine; PCP Internal Medicine
DX: R11.15 Cyclical vomiting syndrome unrelated to migraine (principal); E87.6 Hypokalemia
CPT/HCPCS: 36415; 80048; 84703; 85025; 96361; 96365; 96366; 96372; 99282; 99284; J1630; J2060; J3480

== ENCOUNTER 2019-11-29 19:32 | Emergency (ER) | payer OTHER, SELFPAY ==
[2019-11-29 19:40] VITALS: BP 169/90; PULSE 67; RESP 21; TEMP 36.3; O2SAT 99; BMI 24.3
--- NOTE | 2019-11-29 20:03 | ED.GENADULT ---
HPI - General Adult General Chief complaint: Abdominal Pain Stated complaint: vomiting Time Seen by Provider: 11/29/19 19:42 Source: patient Mode of arrival: Ambulatory Limitations: no limitations History of Present Illness HPI narrative: Patient is a 44-year-old female with a known history of cyclic vomiting syndrome. Stated that she had symptoms started this morning at 0700 hours. She took her medications this morning which did not help her symptoms. Also thought out by nursing that she is smoke marijuana since the onset of the symptoms as well. There's been some concern in the past that her hyperemesis may be secondary to cannabis use. She describes epigastric pain, nausea and vomiting. Related Data Home Medications Medication Instructions Recorded Confirmed coenzyme Q10 [Co Q-10] 100 mg PO DAILY #0 07/27/17 08/11/19 diphenhydramine HCl [Benadryl 25 mg PO Q6HP #0 07/27/17 08/11/19 Allergy] hydrocodone-acetaminophen 1 tab PO Q6HP PRN 08/11/19 08/11/19 ibuprofen 800 mg PO DAILY 08/11/19 08/11/19 promethazine [Phenadoz] 25 mg [place] TID PRN 08/11/19 08/11/19 sertraline 50 mg PO DAILY 08/11/19 11/07/19 sumatriptan 0 mg INTRANASAL PRN PRN 08/11/19 11/07/19 amitriptyline See Rx Instructions .ROUTE .COMPLEX 11/07/19 11/07/19 lorazepam 0.5 mg PO Q4-6H PRN 11/07/19 11/07/19 simvastatin 5 mg PO SUSA 11/07/19 11/07/19 Previous Rx's Medication Instructions Recorded potassium chloride 40 meq PO DAILY #2 tab 08/11/19 ondansetron 4 mg PO Q8H PRN #10 tab 11/07/19 Allergies Allergy/AdvReac Type Severity Reaction Status Date / Time promethazine [PROMETHAZINE] Allergy Mild ERYTHEMA Verified 08/11/19 09:13 TO IV SITE PT STATES ABLE TO TAKE WI latex [LATEX] Allergy Unknown Verified 08/11/19 09:13 metoclopramide AdvReac Unknown DYSTONIA Verified 08/11/19 09:13 [METOCLOPRAMIDE] Review of Systems Constitutional Constitutional: Denies fever(s) Gastrointestinal Gastrointestinal: Reports abdominal pain, Denies change in stool character, Reports nausea and Reports vomiting Integumentary/Breasts Skin/Breast: Denies rash Neurologic Neurologic: Denies behavioral changes Psychiatric Psychiatric: Denies behavioral changes Hematologic/Lymphatic Hematologic/Lymphatic: Denies easy bleeding and Denies easy bruising Patient History Medical History Chronic abdominal pain (Acute) Cyclic vomiting syndrome (Acute) Pancreatitis (Acute) Surgical History No pertinent past surgical history (Acute) Social History Smoking Status: Current every day smoker Smoking Status: Current every day smoker alcohol intake frequency: 0-2 drinks per day Substance Use Type: marijuana Exam Initial Vital Signs Initial Vital Signs: Vital Signs Temperature 97.3 F L 11/29/19 19:40 Pulse Rate 67 11/29/19 19:40 Respiratory Rate 21 11/29/19 19:40 Blood Pressure 169/90 H 11/29/19 19:40 Pulse Oximetry 99 11/29/19 19:40 Const General: cooperative Orientation: alert and awake HENMT Head: normal to inspection and normocephalic Resp Effort & Inspection: normal respiratory effort Auscultation: clear to auscultation bilaterally Cardio Rate: regular rate Rhythm: regular rhythm GI Inspection: non-distended Palpation: soft and tender (Diffusely tender) Skin Lesions: no lesions Rashes: no rashes Neuro General: moves all extremities Extrem General: capillary refill normal Psych Mood: irritable mood Affect: animated and anxious affect Course Orders Ordered: ED Orders 11/29/19 20:05 Complete Blood Count AUTO DIFF Stat Comprehensive Metabolic Panel Stat Ethanol (ETOH) Stat Lipase Stat Test Serum,Qual Stat Discontinued Medications Haloperidol (Haldol) 5 mg IV NOW ONE Stop: 11/29/19 19:43 Last Admin: 11/29/19 20:23 Dose: 5 mg Documented by: KATIUSKA Sodium Chloride (Normal Saline 0.9%) 1,000 mls @ 1,000 mls/hr IV BOLUS ONE Stop: 11/29/19 20:41 Last Infusion: 11/29/19 21:37 Dose: 0 mls/hr Documented by: Admin: 11/29/19 20:23 Dose: 1,000 mls/hr Documented by: KATIUSKA Sodium Chloride (Normal Saline 0.9%) 1,000 mls @ 1,000 mls/hr IV BOLUS ONE Stop: 11/29/19 22:29 Last Infusion: 11/29/19 22:45 Dose: 0 mls/hr Documented by: Admin: 11/29/19 21:37 Dose: 1,000 mls/hr Documented by: KATIUSKA Lorazepam (Ativan) 2 mg IV NOW ONE Stop: 11/29/19 20:32 Last Admin: 11/29/19 20:42 Dose: 2 mg Documented by: KATIUSKA Vital Signs Vital signs: Vital Signs - 8 hr 11/29/19 20:40 11/29/19 22:16 11/29/19 23:00 Pulse Rate 89 93 H 88 Respiratory Rate 15 29 H 22 Blood Pressure [Left Arm] 128/75 151/97 H 158/93 H Pulse Oximetry 100 97 98 Medical Decision Making Lab Data Lab results reviewed: Yes I reviewed the patient's lab results. Result diagrams: 11/29/19 20:05 11/29/19 20:05 Labs: Lab Results 11/29/19 11/29/19 11/29/19 Range/Units 20:05 20:05 20:05 WBC 10.0 (4.5-11.0) X10^3/uL RBC 4.26 (4.0-5.2) X10^6/uL Hgb 13.6 (12.0-16.0) g/dL Hct 39.6 (36-46) % MCV 92.8 (80-100) fL MCH 31.8 (26-34) PG MCHC 34.3 (30-36) % RDW 13.6 (11.6-14.8) % Plt Count 275 (150-400) X10^3/uL Neut % (Auto) 85.6 H (50-75) % Lymph % (Auto) 11.1 L (25-40) % [place] % (Auto) 2.5 L (3-14) % Eos % (Auto) 0.3 L (2-4) % Baso % (Auto) 0.5 (0-2) % Neut # (Auto) 8500 H (2402-1936) /uL Lymph # (Auto) 1100 (0053-0263) /uL [place] # (Auto) 200 (0-900) /uL Eos # (Auto) 0 (0-450) /uL Baso # (Auto) 0 (0-100) /uL Sodium 142 (137-145) mmol/L Potassium 3.7 (3.4-5.1) mmol/L Chloride 102 (98-107) mmol/L Carbon Dioxide 28 (22-32) mmol/L BUN 12 (7-17) mg/dL Creatinine 0.60 (0.52-1.04) mg/dL Estimated GFR > 60.0 (>60) mL/min BUN/Creatinine Ratio 20.0 (6-22) Glucose 165 H (70-100) mg/dL Calcium 9.8 (8.4-10.2) mg/dL Total Bilirubin 0.7 (0.2-1.3) mg/dL AST 32 (14-36) IU/L ALT 17 (<35) IU/L Alkaline Phosphatase 113 (38-126) U/L Total Protein 8.6 H (6.3-8.2) g/dL Albumin 5.0 (3.5-5.0) g/dL Globulin 3.6 (1.7-4.1) g/dL Albumin/Globulin Ratio 1.4 (1.0-2.8) Lipase 84 (23-300) U/L Serum , Qual Negative (Negative) Ethyl Alcohol < 10 ( - 10) mg/dL Urine Dip Bedside Urine Glucose Negative Bedside Urine Bilirubin - Negative Bedside Urine Ketone + 15 Urine Specific Natalia 1.010 Bedside Urine Occult Blood - Negative Bedside Urine pH 8.5 Bedside Urine Protein ++ 100 Bedside Urine Urobilinogen - Negative Bedside Urine Nitrite - Negative Bedside Urine Leukocytes - Negative Esterase Point of care testing: Urine Dip Bedside Urine Glucose Negative Bedside Urine Bilirubin - Negative Bedside Urine Ketone + 15 Urine Specific Natalia 1.010 Bedside Urine Occult Blood - Negative Bedside Urine pH 8.5 Bedside Urine Protein ++ 100 Bedside Urine Urobilinogen - Negative Bedside Urine Nitrite - Negative Bedside Urine Leukocytes - Negative Esterase MDM Narrative Medical decision making narrative: Patient's labs are unremarkable. She had ketones in her urine. She was given 2 L of fluid. Was given 5 mg of Haldol and 2 mg of Ativan for her symptoms. This seems to have worked in the past. She slept afterwards. Had no vomiting in the emergency department after she was given these medications. I do not feel we need to obtain a CT scan today. She does not need admitted to the hospital. Was discharged home with follow-up and return instructions Discharge Plan Departure Patient Disposition: Home Clinical Impression: Cyclic vomiting syndrome Discharge Date/Time: 11/29/19 23:20 Instructions: DI for Vomiting -- Adult Activity Restrictions/Additional Instructions: Continue all of your medications as directed. Contact her primary provider for follow-up. Return to the emergency department for any new symptoms. Prescriptions: No Action diphenhydramine HCl [Benadryl Allergy] 25 MG tablet 25 mg PO Q6HP Qty: 0 RF: 0 coenzyme Q10 [Co Q-10] 100 MG capsule 100 mg PO DAILY Qty: 0 RF: 0 ondansetron 4 mg tablet,disintegrating 4 mg PO Q8H PRN (Reason: nausea and vomiting) Qty: 10 RF: 0 amitriptyline 25 mg tablet See Rx Instructions .ROUTE .COMPLEX RF: 0 lorazepam 0.5 mg tablet 0.5 mg PO Q4-6H PRN (Reason: Anxiety) RF: 0 simvastatin 5 mg tablet 5 mg PO SUSA RF: 0 promethazine [Phenadoz] 25 mg suppository 25 mg [place] TID PRN (Reason: nausea/vomiting) RF: 0 ibuprofen 800 mg tablet 800 mg PO DAILY RF: 0 sumatriptan 20 mg/actuation spray,non-aerosol 0 mg INTRANASAL PRN PRN (Reason: Migraine Headache) RF: 0 sertraline 50 mg tablet 50 mg PO DAILY RF: 0 hydrocodone-acetaminophen 5 MG/325 MG tablet 1 tab PO Q6HP PRN (Reason: pain) RF: 0 potassium chloride 20 mEq tablet extended release 40 meq PO DAILY Qty: 2 RF: 0 Referrals: Joanna Storm MD [Primary Care Provider] -
[2019-11-29 20:19] LABS: Add Manual Diff / Slide Review NO; Basophils Absolute Auto 0 /uL (0-100); Basophils Percent Auto 0.5 % (0-2); Eosinophils Absolute Auto 0 /uL (0-450); Eosinophils Percent Auto 0.3 % (2-4); Hematocrit 39.6 % (36-46); Hemoglobin 13.6 g/dL (12.0-16.0); Lymphocytes Absolute Auto 1100 /uL (1100-4500); Lymphocytes Percent Auto 11.1 % (25-40); Mean Corpuscular HGB Conc 34.3 % (30-36); Mean Corpuscular Hemoglobin 31.8 PG (26-34); Mean Corpuscular Volume 92.8 fL (80-100); Monocytes Absolute Auto 200 /uL (0-900); Monocytes Percent Auto 2.5 % (3-14); Neutrophils Absolute Auto 8500 /uL (1500-7000); Neutrophils Percent Auto 85.6 % (50-75); Platelet Count 275 X10^3/uL (150-400); Red Blood Cell Count 4.26 X10^6/uL (4.0-5.2); Red Cell Distribution Width 13.6 % (11.6-14.8)
[2019-11-29] MEDS: SODIUM CHLORIDE 0.9% 1,000 ML 1000 ML IV ×2 (20:23→21:37)
[2019-11-29] MEDS: HALOPERIDOL 5 MG/ML VIAL IV (20:23)
[2019-11-29 20:29] LABS: Alanine Aminotransferase 17 IU/L (<35); Albumin Globulin Ratio 1.4 (1.0-2.8); Alkaline Phosphatase 113 U/L (38-126); Aspartate Aminotransferase 32 IU/L (14-36); Bilirubin Total 0.7 mg/dL (0.2-1.3); Blood Urea Nitrogen 12 mg/dL (7-17); Calcium 9.8 mg/dL (8.4-10.2); Carbon Dioxide 28 mmol/L (22-32); Chloride 102 mmol/L (98-107); Estimated Glomerular Filt Rate > 60.0 mL/min (>60); Ethanol (ETOH) < 10 mg/dL; Globulin 3.6 g/dL (1.7-4.1); Glucose 165 mg/dL (70-100); HEMOLYSIS 18 (0-50); Lipase 84 U/L (23-300); Potassium 3.7 mmol/L (3.4-5.1); Sodium 142 mmol/L (137-145); Total Protein 8.6 g/dL (6.3-8.2)
[2019-11-29 20:33] LABS: Pregnancy Test Serum,Qual Negative (Negative)
[2019-11-29 20:40] VITALS: BP 128/75; PULSE 89; RESP 15; O2SAT 100
[2019-11-29] MEDS: LORazepam 2 MG/ML INJ IV (20:42)
[2019-11-29 22:16] VITALS: BP 151/97; PULSE 93; RESP 29; O2SAT 97
[2019-11-29 23:00] VITALS: BP 158/93; PULSE 88; RESP 22; O2SAT 98
== END 2019-11-29 23:20 | disposition home or self-care (01) ==
PROVIDERS: Emergency Provider Emergency Medicine; Family Provider Internal Medicine; PCP Internal Medicine
DX: R11.15 Cyclical vomiting syndrome unrelated to migraine (principal)
CPT/HCPCS: 36415; 80053; 80320; 81003; 83690; 84703; 85025; 96361; 96374; 96375; 99284; J1630; J2060

== ENCOUNTER 2019-12-28 22:48 | Emergency (ER) | payer OTHER, SELFPAY ==
[2019-12-28 22:54] VITALS: BP 160/97; PULSE 86; RESP 22; TEMP 36.6; O2SAT 100
[2019-12-28] MEDS: SODIUM CHLORIDE 0.9% 1,000 ML 1000 ML IV (23:49)
[2019-12-28] MEDS: ONDANSETRON 4 MG/2 ML INJ IV (23:50)
[2019-12-28 23:57] LABS: Add Manual Diff / Slide Review NO; Basophils Absolute Auto 0 /uL (0-100); Basophils Percent Auto 0.6 % (0-2); Eosinophils Absolute Auto 0 /uL (0-450); Eosinophils Percent Auto 0.1 % (2-4); Hematocrit 38.6 % (36-46); Hemoglobin 13.2 g/dL (12.0-16.0); Lymphocytes Absolute Auto 500 /uL (1100-4500); Lymphocytes Percent Auto 7.8 % (25-40); Mean Corpuscular HGB Conc 34.3 % (30-36); Mean Corpuscular Hemoglobin 31.7 PG (26-34); Mean Corpuscular Volume 92.5 fL (80-100); Monocytes Absolute Auto 300 /uL (0-900); Neutrophils Absolute Auto 6100 /uL (1500-7000); Neutrophils Percent Auto 87.5 % (50-75); Platelet Count 239 X10^3/uL (150-400); Red Blood Cell Count 4.17 X10^6/uL (4.0-5.2); Red Cell Distribution Width 13.8 % (11.6-14.8); White Blood Cell Count 6.9 X10^3/uL (4.5-11.0)
[2019-12-29 00:03] LABS: Alanine Aminotransferase 17 IU/L (<35); Albumin 5.1 g/dL (3.5-5.0); Albumin Globulin Ratio 1.3 (1.0-2.8); Alkaline Phosphatase 82 U/L (38-126); Aspartate Aminotransferase 30 IU/L (14-36); BUN Creatinine Ratio 21.7 (6-22); Bilirubin Total 1.1 mg/dL (0.2-1.3); Blood Urea Nitrogen 13 mg/dL (7-17); Calcium 10.5 mg/dL (8.4-10.2); Carbon Dioxide 25 mmol/L (22-32); Chloride 100 mmol/L (98-107); Estimated Glomerular Filt Rate > 60.0 mL/min (>60); Globulin 3.8 g/dL (1.7-4.1); Glucose 170 mg/dL (70-100); HEMOLYSIS 37 (0-50); Lipase 65 U/L (23-300); Potassium 3.3 mmol/L (3.4-5.1); Sodium 138 mmol/L (137-145); Total Protein 8.9 g/dL (6.3-8.2)
--- NOTE | 2019-12-29 01:15 | ED.NAVMDI ---
HPI - Nausea/Vomiting/Diarrhea <Janis Saxena, DO - Last Filed: 12/30/19 00:42> General Chief complaint: Nausea/Vomiting/Diarrhea Stated complaint: vomiting 12-18 hours Time Seen by Provider: 12/29/19 01:15 Source: patient and family Mode of arrival: Wheelchair Limitations: no limitations History of Present Illness HPI Narrative: This is a 44-year-old female who comes in with complaint of vomiting start about 3:00 a.m. in the morning yesterday or on the so almost 24 hours ago. Patient has not been having fevers but has been vomiting. She been having abdominal pain which is similar to when she has her cyclic vomiting episodes. She has had bowel movements. She did try Phenergan suppository without any improvement. Patient has had urine output with no major changes. Patient does use marijuana and there has been discussion in the that she may have hyper emesis secondary to cannabis. She is accompanied by her sister and a friend. Related Data Home Medications Medication Instructions Recorded Confirmed coenzyme Q10 [Co Q-10] 100 mg PO DAILY #0 07/27/17 08/11/19 diphenhydramine HCl [Benadryl 25 mg PO Q6HP #0 07/27/17 08/11/19 Allergy] hydrocodone-acetaminophen 1 tab PO Q6HP PRN 08/11/19 08/11/19 ibuprofen 800 mg PO DAILY 08/11/19 08/11/19 promethazine [Phenadoz] 25 mg TX TID PRN 08/11/19 08/11/19 sertraline 50 mg PO DAILY 08/11/19 12/29/19 sumatriptan 0 mg INTRANASAL PRN PRN 08/11/19 11/07/19 amitriptyline See Rx Instructions .ROUTE .COMPLEX 11/07/19 12/29/19 lorazepam 0.5 mg PO Q4-6H PRN 11/07/19 11/07/19 simvastatin 5 mg PO SUSA 11/07/19 12/29/19 ondansetron 8 mg PO TID PRN 12/29/19 12/29/19 Previous Rx's Medication Instructions Recorded potassium chloride 40 meq PO DAILY #2 tab 08/11/19 ondansetron 4 mg PO Q8H PRN #10 tab 11/07/19 Allergies Allergy/AdvReac Type Severity Reaction Status Date / Time promethazine [PROMETHAZINE] Allergy Mild ERYTHEMA Verified 08/11/19 09:13 TO IV SITE PT STATES ABLE TO TAKE TX latex [LATEX] Allergy Unknown Verified 08/11/19 09:13 metoclopramide AdvReac Unknown DYSTONIA Verified 08/11/19 09:13 [METOCLOPRAMIDE] Review of Systems <Janis Saxena DO - Last Filed: 12/30/19 00:42> Review of Systems ROS Unobtainable: All systems reviewed & are unremarkable except as noted in HPI and below Patient History <Janis Saxena DO - Last Filed: 12/30/19 00:42> Medical History Chronic abdominal pain (Acute) Cyclic vomiting syndrome (Acute) Pancreatitis (Acute) Surgical History No pertinent past surgical history (Acute) Social History Smoking Status: Current every day smoker Smoking Status: Current every day smoker tobacco type: vaping alcohol intake frequency: 0-2 drinks per day Substance Use Type: marijuana Exam <Janis Saxena DO - Last Filed: 12/30/19 00:42> Narrative Exam Narrative: GENERAL: Alert and oriented x three, well-appearing female who is actively dry heaving while in the room. Patient appears uncomfortable. HEENT: Head normocephalic, atraumatic, EOMI, pupils reactive, face symmetric, moist mucous membranes NECK: Supple, full range of motion CARDIOVASCULAR: Regular rate and rhythm without murmurs, rubs or gallops. RESPIRATORY: Breath sounds equal bilaterally, no wheezes rales or rhonchi. ABDOMEN: Soft, mild epigastric tenderness, non-distended. Normoactive bowel sounds all 4 quadrants. No guarding or rebound, rigidity, no mass : No CVA tenderness EXTREMITIES: Normal range of motion, no clubbing or edema. Neurovascularly intact NEUROLOGICAL: Cranial nerves II through XII grossly intact. Moving all extremities SKIN: Warm, dry, no petechiae, no rashes or lesions. Initial Vital Signs Initial Vital Signs: Vital Signs Temperature 98 F 12/28/19 22:54 Pulse Rate 86 01/30/20 22:54 Respiratory Rate 22 12/28/19 22:54 Blood Pressure 160/97 H 12/28/19 22:54 Pulse Oximetry 100 12/28/19 22:54 <Savannah Reich DO - Last Filed: 12/29/19 10:07> Initial Vital Signs Initial Vital Signs: Vital Signs Temperature 98 F 12/28/19 22:54 Pulse Rate 86 12/28/19 22:54 Respiratory Rate 22 12/28/19 22:54 Blood Pressure 160/97 H 12/28/19 22:54 Pulse Oximetry 100 12/28/19 22:54 Course <Janis Saxena DO - Last Filed: 12/30/19 00:42> Orders Ordered: Discontinued Medications Haloperidol (Haldol) 5 mg IV NOW ONE Stop: 12/29/19 01:18 Last Admin: 12/29/19 01:22 Dose: 5 mg Documented by: LANETTE Sodium Chloride (Normal Saline 0.9%) 1,000 mls @ 1,000 mls/hr IV BOLUS ONE Stop: 12/29/19 00:34 Last Infusion: 12/29/19 01:34 Dose: 0 mls/hr Documented by: Admin: 12/28/19 23:49 Dose: 1,000 mls/hr Documented by: LANETTE Sodium Chloride (Normal Saline 0.9%) 1,000 mls @ 1,000 mls/hr IV BOLUS ONE Stop: 12/29/19 02:17 Last Infusion: 12/29/19 01:45 Dose: 0 mls/hr Documented by: Admin: 12/29/19 01:23 Dose: 1,000 mls/hr Documented by: LANETTE Lorazepam (Ativan) 2 mg IV NOW ONE Stop: 12/29/19 01:18 Last Admin: 12/29/19 01:22 Dose: 2 mg Documented by: LANETTE Ondansetron HCl (Zofran) 4 mg IV NOW ONE Stop: 12/28/19 23:35 Last Admin: 12/28/19 23:50 Dose: 4 mg Documented by: LANETTE Vital Signs Vital signs: Vital Signs - 8 hr 12/29/19 04:10 12/29/19 07:40 12/29/19 09:30 Temperature 98.7 F Pulse Rate 88 87 77 Respiratory Rate 14 18 15 Blood Pressure [Left Arm] 151/101 H 145/89 H 167/97 H Pulse Oximetry 97 100 <Savannah Reich DO - Last Filed: 12/29/19 10:07> Orders Ordered: Discontinued Medications Haloperidol (Haldol) 5 mg IV NOW ONE Stop: 12/29/19 01:18 Last Admin: 12/29/19 01:22 Dose: 5 mg Documented by: LANETTE Sodium Chloride (Normal Saline 0.9%) 1,000 mls @ 1,000 mls/hr IV BOLUS ONE Stop: 12/29/19 00:34 Last Infusion: 12/29/19 01:34 Dose: 0 mls/hr Documented by: Admin: 12/28/19 23:49 Dose: 1,000 mls/hr Documented by: LANETTE Sodium Chloride (Normal Saline 0.9%) 1,000 mls @ 1,000 mls/hr IV BOLUS ONE Stop: 12/29/19 02:17 Last Infusion: 12/29/19 01:45 Dose: 0 mls/hr Documented by: Admin: 12/29/19 01:23 Dose: 1,000 mls/hr Documented by: LANETTE Lorazepam (Ativan) 2 mg IV NOW ONE Stop: 12/29/19 01:18 Last Admin: 12/29/19 01:22 Dose: 2 mg Documented by: LANETTE Ondansetron HCl (Zofran) 4 mg IV NOW ONE Stop: 12/28/19 23:35 Last Admin: 12/28/19 23:50 Dose: 4 mg Documented by: LANETTE Vital Signs Vital signs: Vital Signs - 8 hr 12/29/19 04:10 12/29/19 07:40 12/29/19 09:30 Temperature 98.7 F Pulse Rate 88 87 77 Respiratory Rate 14 18 15 Blood Pressure [Left Arm] 151/101 H 145/89 H 167/97 H Pulse Oximetry 97 100 MDM - Nausea/Vomiting/Diarrhea <Janis Saxena DO - Last Filed: 12/30/19 00:42> Lab Data Attestation: I reviewed the patient's lab results. Result diagrams: 12/28/19 23:25 12/28/19 23:25 Labs: Lab Results 12/28/19 12/28/19 Range/Units 23:25 23:25 WBC 6.9 (4.5-11.0) X10^3/uL RBC 4.17 (4.0-5.2) X10^6/uL Hgb 13.2 (12.0-16.0) g/dL Hct 38.6 (36-46) % MCV 92.5 (80-100) fL MCH 31.7 (26-34) PG MCHC 34.3 (30-36) % RDW 13.8 (11.6-14.8) % Plt Count 239 (150-400) X10^3/uL Neut % (Auto) 87.5 H (50-75) % Lymph % (Auto) 7.8 L (25-40) % [place] % (Auto) 4.0 (3-14) % Eos % (Auto) 0.1 L (2-4) % Baso % (Auto) 0.6 (0-2) % Neut # (Auto) 6100 (9648-8777) /uL Lymph # (Auto) 500 L (1644-7814) /uL [place] # (Auto) 300 (0-900) /uL Eos # (Auto) 0 (0-450) /uL Baso # (Auto) 0 (0-100) /uL Sodium 138 (137-145) mmol/L Potassium 3.3 L (3.4-5.1) mmol/L Chloride 100 (98-107) mmol/L Carbon Dioxide 25 (22-32) mmol/L BUN 13 (7-17) mg/dL Creatinine 0.60 (0.52-1.04) mg/dL Estimated GFR > 60.0 (>60) mL/min BUN/Creatinine Ratio 21.7 (6-22) Glucose 170 H (70-100) mg/dL Calcium 10.5 H (8.4-10.2) mg/dL Total Bilirubin 1.1 (0.2-1.3) mg/dL AST 30 (14-36) IU/L ALT 17 (<35) IU/L Alkaline Phosphatase 82 (38-126) U/L Total Protein 8.9 H (6.3-8.2) g/dL Albumin 5.1 H (3.5-5.0) g/dL Globulin 3.8 (1.7-4.1) g/dL Albumin/Globulin Ratio 1.3 (1.0-2.8) Lipase 65 (23-300) U/L MDM Narrative Medical decision making narrative: Patient comes in with pulse 20 4 hours of emesis. Patient symptoms are similar to her prior episodes. Imaging was deferred she has been having bowel movement. Patient received fluids, she has had received Haldol and Ativan in the past and this was repeated today as she seems to respond to this combination well. Potassium is slightly decreased at 3.3, electrolytes are otherwise normal the glucose of 170 a calcium of 10.5. Normal renal function. Patient's LFTs are normal with total protein being elevated. Normal white count, hemoglobin is normal with neutrophils at 87%. Patient's IV infiltrated after medications were given and fluids. d/c'd IV. Patient has not had further emesis. She is sleeping on recheck for several times. Patient's sister did leave but states she is reachable by phone. Patient signed out to Dr. Reich, patient is still sleeping. No emesis after medications. <Savannah Reich, DO - Last Filed: 12/29/19 10:07> Lab Data Labs: Lab Results 12/28/19 12/28/19 Range/Units 23:25 23:25 WBC 6.9 (4.5-11.0) X10^3/uL RBC 4.17 (4.0-5.2) X10^6/uL Hgb 13.2 (12.0-16.0) g/dL Hct 38.6 (36-46) % MCV 92.5 (80-100) fL MCH 31.7 (26-34) PG MCHC 34.3 (30-36) % RDW 13.8 (11.6-14.8) % Plt Count 239 (150-400) X10^3/uL Neut % (Auto) 87.5 H (50-75) % Lymph % (Auto) 7.8 L (25-40) % [place] % (Auto) 4.0 (3-14) % Eos % (Auto) 0.1 L (2-4) % Baso % (Auto) 0.6 (0-2) % Neut # (Auto) 6100 (2067-6243) /uL Lymph # (Auto) 500 L (6605-2754) /uL [place] # (Auto) 300 (0-900) /uL Eos # (Auto) 0 (0-450) /uL Baso # (Auto) 0 (0-100) /uL Sodium 138 (137-145) mmol/L Potassium 3.3 L (3.4-5.1) mmol/L Chloride 100 (98-107) mmol/L Carbon Dioxide 25 (22-32) mmol/L BUN 13 (7-17) mg/dL Creatinine 0.60 (0.52-1.04) mg/dL Estimated GFR > 60.0 (>60) mL/min BUN/Creatinine Ratio 21.7 (6-22) Glucose 170 H (70-100) mg/dL Calcium 10.5 H (8.4-10.2) mg/dL Total Bilirubin 1.1 (0.2-1.3) mg/dL AST 30 (14-36) IU/L ALT 17 (<35) IU/L Alkaline Phosphatase 82 (38-126) U/L Total Protein 8.9 H (6.3-8.2) g/dL Albumin 5.1 H (3.5-5.0) g/dL Globulin 3.8 (1.7-4.1) g/dL Albumin/Globulin Ratio 1.3 (1.0-2.8) Lipase 65 (23-300) U/L MDM Narrative Medical decision making narrative: Patient signed out to me by Dr. Saxena. I have seen evaluated her myself. She has been sleeping for about 10 hours I am able to arouse her. She overall is feeling better she has not had any vomiting. Her sister is coming to pick her up. Discharge Plan Departure Patient Disposition: Home Clinical Impression: Cyclic vomiting syndrome Discharge Date/Time: 12/29/19 09:57 Activity Restrictions/Additional Instructions: Follow up with your physician in the next several days for recheck. You may continue home medications as prescribed. Return to ER for fevers greater than 100.4F, syncope or passing out, new chest pain, abdominal pain, continued persistent vomiting, black or bloody stools, bloody emesis or vomit other new or concerning symptoms. Prescriptions: No Action diphenhydramine HCl [Benadryl Allergy] 25 MG tablet 25 mg PO Q6HP Qty: 0 RF: 0 coenzyme Q10 [Co Q-10] 100 MG capsule 100 mg PO DAILY Qty: 0 RF: 0 ondansetron 4 mg tablet,disintegrating 4 mg PO Q8H PRN (Reason: nausea and vomiting) Qty: 10 RF: 0 amitriptyline 25 mg tablet See Rx Instructions .ROUTE .COMPLEX RF: 0 lorazepam 0.5 mg tablet 0.5 mg PO Q4-6H PRN (Reason: Anxiety) RF: 0 simvastatin 5 mg tablet 5 mg PO SUSA RF: 0 promethazine [Phenadoz] 25 mg suppository 25 mg TX TID PRN (Reason: nausea/vomiting) RF: 0 ibuprofen 800 mg tablet 800 mg PO DAILY RF: 0 sumatriptan 20 mg/actuation spray,non-aerosol 0 mg INTRANASAL PRN PRN (Reason: Migraine Headache) RF: 0 sertraline 50 mg tablet 50 mg PO DAILY RF: 0 hydrocodone-acetaminophen 5 MG/325 MG tablet 1 tab PO Q6HP PRN (Reason: pain) RF: 0 potassium chloride 20 mEq tablet extended release 40 meq PO DAILY Qty: 2 RF: 0 ondansetron 8 mg tablet,disintegrating 8 mg PO TID PRN (Reason: Nausea) RF: 0 Referrals: Joanna Storm MD [Primary Care Provider] -
[2019-12-29] MEDS: HALOPERIDOL 5 MG/ML VIAL IV (01:22)
[2019-12-29] MEDS: LORazepam 2 MG/ML INJ IV (01:22)
[2019-12-29] MEDS: SODIUM CHLORIDE 0.9% 1,000 ML 1000 ML IV (01:23)
[2019-12-29 04:10] VITALS: BP 151/101; PULSE 88; RESP 14; TEMP 37.1; O2SAT 97
[2019-12-29 07:40] VITALS: BP 145/89; PULSE 87; RESP 18; O2SAT 100
[2019-12-29 09:30] VITALS: BP 167/97; PULSE 77; RESP 15
== END 2019-12-29 09:57 | disposition home or self-care (01) ==
PROVIDERS: Emergency Medicine; Emergency Provider Emergency Medicine; Family Provider Internal Medicine; PCP Internal Medicine
DX: R11.15 Cyclical vomiting syndrome unrelated to migraine (principal)
CPT/HCPCS: 36415; 80053; 83690; 85025; 96361; 96374; 96375; 99284; J1630; J2060; J2405

== ENCOUNTER 2020-05-16 20:51 | Emergency (ER) | payer OTHER, SELFPAY ==
[2020-05-16 21:00] VITALS: BP 152/100; PULSE 90; RESP 15; TEMP 36.9; O2SAT 99; BMI 25.8
--- NOTE | 2020-05-16 21:15 | DI.RAD.S_ITS ---
PROCEDURE: XR FINGER LT MIN 2V INDICATIONS: painful thumb, no obvious injury TECHNIQUE: AP hand, 2 views of the left first finger(s) acquired. COMPARISON: None. FINDINGS: Bones: No fractures or dislocations. No suspicious bony lesions. Soft tissues: No suspicious soft tissue calcifications. IMPRESSION: No acute radiographic findings. If pain persists, followup imaging in 5-7 days is recommended to exclude occult fracture. Dictated by: Daisha Schmidt M.D. on 05/16/2020 at 21:34 Approved by: Daisha Schmidt M.D. on 05/16/2020 at 21:35
[2020-05-16 22:25] LABS: Add Manual Diff / Slide Review NO; Basophils Absolute Auto 100 /uL (0-100); Basophils Percent Auto 1.5 % (0-2); Eosinophils Absolute Auto 300 /uL (0-450); Eosinophils Percent Auto 3.3 % (2-4); Hematocrit 39.3 % (36-46); Hemoglobin 13.4 g/dL (12.0-16.0); Lymphocytes Absolute Auto 2800 /uL (1100-4500); Lymphocytes Percent Auto 34.9 % (25-40); Mean Corpuscular HGB Conc 34.1 % (30-36); Mean Corpuscular Hemoglobin 32.7 PG (26-34); Mean Corpuscular Volume 96.1 fL (80-100); Monocytes Absolute Auto 300 /uL (0-900); Monocytes Percent Auto 4.1 % (3-14); Neutrophils Absolute Auto 4500 /uL (1500-7000); Neutrophils Percent Auto 56.2 % (50-75); Platelet Count 234 X10^3/uL (150-400); Red Blood Cell Count 4.09 X10^6/uL (4.0-5.2); Red Cell Distribution Width 13.2 % (11.6-14.8)
[2020-05-16 22:36] LABS: Erythrocyte Sedimentation Rate 14 MM/HR (0-20)
[2020-05-16 22:48] LABS: BUN Creatinine Ratio 17.4 (6-22); Blood Urea Nitrogen 12 mg/dL (7-17); Calcium 9.6 mg/dL (8.4-10.2); Carbon Dioxide 24 mmol/L (22-32); Chloride 106 mmol/L (98-107); Estimated Glomerular Filt Rate > 60.0 mL/min (>60); Glucose 95 mg/dL (70-100); HEMOLYSIS < 15 (0-50); Potassium 4.2 mmol/L (3.4-5.1); Sodium 140 mmol/L (137-145); Uric Acid 3.4 mg/dL (2.5-6.2)
[2020-05-16 22:49] LABS: C-Reactive Protein Quant < 0.5 mg/dL (<1.0)
--- NOTE | 2020-05-17 00:03 | ED_ITS ---
HPI - Extremity Injury (Upper) General Chief Complaint: Extremity Injury, Upper Stated Complaint: swollen thumb left hand Time Seen by Provider: 05/16/20 20:54 Source: patient Mode of arrival: Ambulatory Limitations: no limitations History of Present Illness HPI narrative: 44F daily smoker with history of cyclic vomiting and chronic pain presents with a painful, swollen left thumb in the absence of any known injury. She denies any fever or chills. She denies any history of the same but does state that she had a similar set of symptoms of her right hand a week or so ago and was placed on prednisone and had rapid relief. She has increased pain with range of motion and improvement with rest. She denies any possible infectious sources such as bad teeth, sore throat, skin infections or other. She denies an y red streaking. She denies any history of gout or overuse. complaint: injury to: left Onset (ago): day(s) Other Extremity Injury: Left: fingers Other injuries: none Handedness: right Relieving factors: immobilization Exacerbating factors: movement of extremity Related Data Home Medications Medication Instructions Recorded Confirmed coenzyme Q10 [Co Q-10] 100 mg PO DAILY #0 07/27/17 08/11/19 diphenhydramine HCl [Benadryl 25 mg PO Q6HP #0 07/27/17 08/11/19 Allergy] hydrocodone-acetaminophen 1 tab PO Q6HP PRN 08/11/19 08/11/19 ibuprofen 800 mg PO DAILY 08/11/19 08/11/19 promethazine [Phenadoz] 25 mg TX TID PRN 08/11/19 08/11/19 sertraline 50 mg PO DAILY 08/11/19 12/29/19 sumatriptan 0 mg INTRANASAL PRN PRN 08/11/19 11/07/19 amitriptyline See Rx Instructions .ROUTE .COMPLEX 11/07/19 12/29/19 lorazepam 0.5 mg PO Q4-6H PRN 11/07/19 11/07/19 simvastatin 5 mg PO SUSA 11/07/19 12/29/19 ondansetron 8 mg PO TID PRN 12/29/19 12/29/19 Previous Rx's Medication Instructions Recorded potassium chloride 40 meq PO DAILY #2 tab 08/11/19 ondansetron 4 mg PO Q8H PRN #10 tab 11/07/19 doxycycline hyclate 100 mg PO BID #20 tab 05/16/20 hydrocodone-acetaminophen 1 tab PO Q4-6H PRN #10 tab 05/16/20 Allergies Allergy/AdvReac Type Severity Reaction Status Date / Time promethazine [PROMETHAZINE] Allergy Mild ERYTHEMA Verified 08/11/19 09:13 TO IV SITE PT STATES ABLE TO TAKE TX latex [LATEX] Allergy Unknown Verified 08/11/19 09:13 metoclopramide AdvReac Unknown DYSTONIA Verified 08/11/19 09:13 [METOCLOPRAMIDE] Review of Systems Constitutional Constitutional: Denies chills, Denies fatigue, Denies fever(s), Denies frequent falls, Denies lethargy and Denies weakness Eyes Eyes: Denies change in vision, Denies eye discharge, Denies irritation and Denies loss of vision ENT Ears, Nose, Mouth, and Throat: Denies change in voice, Denies dizziness, Denies neck pain, Denies sore throat and Denies throat swelling Cardiovascular Cardiovascular: Denies chest pain, Denies irregular heart rhythm, Denies lightheadedness, Denies palpitations, Denies dyspnea, Denies dyspnea on exertion and Denies orthopnea Respiratory Respiratory: Denies cough, Denies dyspnea, Denies dyspnea on exertion and Denies wheezing Gastrointestinal Gastrointestinal: Denies abdominal pain, Denies change in bowel habits, Denies diarrhea, Denies nausea and Denies vomiting Musculoskeletal Musculoskeletal: Reports arthralgias, Reports joint swelling, Denies neck pain and Denies numbness Integumentary/Breasts Skin/Breast: Denies pruritus, Reports erythema, Denies rash and Denies wounds Neurologic Neurologic: Denies behavioral changes, Denies confusion, Denies dizziness, Denies frequent falls, Denies loss of vision, Denies numbness and Denies weakness Psychiatric Psychiatric: Denies anxiety, Denies behavioral changes, Denies confusion, Denies depression, Denies homicidal ideation and Denies suicidal ideation Endocrine Endocrine: Denies fatigue, Denies flushing and Denies palpitations Hematologic/Lymphatic Hematologic/Lymphatic: Denies easy bruising Allergic/Immunologic Allergic/Immunologic: Denies urticaria, Denies throat swelling and Denies wheezing Patient History Medical History Chronic abdominal pain (Acute) Cyclic vomiting syndrome (Acute) Pancreatitis (Acute) Surgical History No pertinent past surgical history (Acute) Social History Smoking Status: Current every day smoker Smoking Status: Current every day smoker tobacco type: vaping alcohol intake frequency: 0-2 drinks per day Substance Use Type: marijuana Exam Narrative Exam Narrative: GENERAL: [44] year old patient appears stated age. Well- nourished, well-developed patient, in mild distress. Tearful, anxious, clearly uncomfortable HEAD: Atraumatic. Normocephalic. EYES: Pupils equal round and reactive. Extraocular motions intact. No scleral icterus. No injection or drainage. ENT: Nose without bleeding, purulent drainage. Throat without erythema, ton sillar hypertrophy or exudate. Airway patent. NECK: Trachea midline. Non tender CARDIOVASCULAR: Regular rate and rhythm without murmurs, gallops, or rubs. RESPIRATORY: Clear to auscultation. Breath sounds equal bilaterally. No wheezes, rales, or rhonchi. GASTROINTESTINAL: Abdomen soft, non-tender, nondistended. EXTREMITIES: Left thumb is erythematous and mildly swollen. It is tender to palpate. There is no red streaking, the erythema is limited to the thumb and does not extend be on the base of the thumb. She is able to flex and extend the this does increase her pain. She has no pain in the palmar surface of her hand. She does not have fusiform swelling, she is not stuck in flexion, she does not have pain along flexor tendon. BACK: Nontender without deformity or crepitance. No flank tenderness. NEURO: AOx3. SKIN: Otherwise no rash or erythema of visible areas Initial Vital Signs Initial Vital Signs: Vital Signs Temperature 98.5 F 05/16/20 21:00 Pulse Rate 90 05/16/20 21:00 Respiratory Rate 15 05/16/20 21:00 Blood Pressure 152/100 H 05/16/20 21:00 Pulse Oximetry 99 05/16/20 21:00 Procedures Orthopedic Splinting/Casting Injury #1: Side: left Upper Extremity Injury Location: finger Upper Extremity Immobilizer: thumb spica Post splinting neuro exam: intact Post splinting vascular exam: intact Placed by: Nursing Course Orders Ordered: ED Orders 05/16/20 21:15 XR finger LT min 2V Stat 05/16/20 21:57 Basic Metabolic Panel Stat C-Reactive Protein Quant Stat Complete Blood Count AUTO DIFF Stat Erythrocyte Sedimentation Rate Stat Uric Acid Stat Discontinued Medications Hydrocodone Bitart/Acetaminophen (Vicodin 5/325 Prepack) 1 bottle MISC SEEINSTR ONE Stop: 05/16/20 23:49 Doxycycline Hyclate (Vibramycin) 100 mg PO NOW ONE Stop: 05/16/20 23:49 Prednisone (Deltasone) 40 mg PO NOW ONE Stop: 05/16/20 23:49 Vital Signs Vital signs: Vital Signs - 8 hr 05/16/20 21:00 Temperature 98.5 F Pulse Rate 90 Respiratory Rate 15 Blood Pressure 152/100 H Pulse Oximetry 99 MDM - Extremity Injury (Upper) Lab Data Result diagrams: 05/16/20 21:57 05/16/20 21:57 Labs: Lab Results 05/16/20 05/16/20 Range/Units 21:57 21:57 WBC 8.0 (4.5-11.0) X10^3/uL RBC 4.09 (4.0-5.2) X10^6/uL Hgb 13.4 (12.0-16.0) g/dL Hct 39.3 (36-46) % MCV 96.1 (80-100) fL MCH 32.7 (26-34) PG MCHC 34.1 (30-36) % RDW 13.2 (11.6-14.8) % Plt Count 234 (150-400) X10^3/uL Neut % (Auto) 56.2 (50-75) % Lymph % (Auto) 34.9 (25-40) % [place] % (Auto) 4.1 (3-14) % Eos % (Auto) 3.3 (2-4) % Baso % (Auto) 1.5 (0-2) % Neut # (Auto) 4500 (7974-2937) /uL Lymph # (Auto) 2800 (6402-4172) /uL [place] # (Auto) 300 (0-900) /uL Eos # (Auto) 300 (0-450) /uL Baso # (Auto) 100 (0-100) /uL ESR 14 (0-20) MM/HR Sodium 140 (137-145) mmol/L Potassium 4.2 (3.4-5.1) mmol/L Chloride 106 (98-107) mmol/L Carbon Dioxide 24 (22-32) mmol/L BUN 12 (7-17) mg/dL Creatinine 0.69 (0.52-1.04) mg/dL Estimated GFR > 60.0 (>60) mL/min BUN/Creatinine Ratio 17.4 (6-22) Glucose 95 (70-100) mg/dL Uric Acid 3.4 (2.5-6.2) mg/dL Calcium 9.6 (8.4-10.2) mg/dL C-Reactive Protein < 0.5 (<1.0) mg/dL Imaging Data Extremity x-ray #1: Radiologist's Impression: Rhonda Yadav 44 F 1975 [place] [address] XRay Report Signed Patient: Rhonda Yadav AMR#: [id number] : 1975Acct:[id number] Age/Sex: 44 / FDate of Service: 05/16/20 Loc: ED Accession Number: [id number] Procedure: XR finger LT min 2V Ordering Provider: Sean Barrett D.O. PROCEDURE: XR FINGER LT MIN 2V INDICATIONS: painful thumb, no obvious injury TECHNIQUE: AP hand, 2 views of the left first finger(s) acquired. COMPARISON: None. FINDINGS: Bones: No fractures or dislocations. No suspicious bony lesions. Soft tissues: No suspicious soft tissue calcifications. IMPRESSION: No acute radiographic findings. If pain persists, followup imaging in 5-7 days is recommended to exclude occult fracture. Dictated by: Daisha Schmidt M.D. on 05/16/2020 at 21:34 Approved by: Daisha Schmidt M.D. on 05/16/2020 at 21:35 MDM Narrative Medical decision making narrative: Sprain / strain considered, but thought less likely given lack of memorable injury. Gout considered, but thought less likely given distribution, lack of history, lack of dietary change, normal uric acid Flexor tenosynovitis considered, but thought unlikely based on lack of Kanavel's signs Cellulitis thought most likely given history, physical. Patient shows no signs of sepsis. Patient's and significant other given extensive bedside discussion regarding r eturn precautions and importance of close follow-up. They demonstrate understanding of these instructions based on their ability to verbally repeat them. Questions answered to their apparent satisfaction Discharge Plan Departure Patient Disposition: Home Clinical Impression: Cellulitis of finger of left hand Instructions: DI for Cellulitis -- Adult Activity Restrictions/Additional Instructions: *You have been diagnosed with [left thumb cellulitis] *What to do: *Take medications as directed *Follow up with your primary care provider in 2-3 days, call for an appointment. Let them know you were seen in the Emergency Department and that we ask that you be seen in follow up *Return to ER if you should have any new, worsening or concerning symptoms such as persistent vomiting, fever over 101 F, worsening swelling, redness, or pain of your hand or other bothersome symptoms Prescriptions: New hydrocodone-acetaminophen 5-325 mg tablet 1 tab PO Q4-6H PRN (Reason: pain) Qty: 10 RF: 0 doxycycline hyclate 100 mg tablet 100 mg PO BID Qty: 20 RF: 0 No Action diphenhydramine HCl [Benadryl Allergy] 25 MG tablet 25 mg PO Q6HP Qty: 0 RF: 0 coenzyme Q10 [Co Q-10] 100 MG capsule 100 mg PO DAILY Qty: 0 RF: 0 ondansetron 4 mg tablet,disintegrating 4 mg PO Q8H PRN (Reason: nausea and vomiting) Qty: 10 RF: 0 amitriptyline 25 mg tablet See Rx Instructions .ROUTE .COMPLEX RF: 0 lorazepam 0.5 mg tablet 0.5 mg PO Q4-6H PRN (Reason: Anxiety) RF: 0 simvastatin 5 mg tablet 5 mg PO SUSA RF: 0 promethazine [Phenadoz] 25 mg suppository 25 mg TX TID PRN (Reason: nausea/vomiting) RF: 0 ibuprofen 800 mg tablet 800 mg PO DAILY RF: 0 sumatriptan 20 mg/actuation spray,non-aerosol 0 mg INTRANASAL PRN PRN (Reason: Migraine Headache) RF: 0 sertraline 50 mg tablet 50 mg PO DAILY RF: 0 hydrocodone-acetaminophen 5 MG/325 MG tablet 1 tab PO Q6HP PRN (Reason: pain) RF: 0 potassium chloride 20 mEq tablet extended release 40 meq PO DAILY Qty: 2 RF: 0 ondansetron 8 mg tablet,disintegrating 8 mg PO TID PRN (Reason: Nausea) RF: 0 Referrals: Joanna Storm MD [Primary Care Provider] -
[2020-05-17] MEDS: HYDROCODONE/ACET 5/325 PREPACK 1 BOTTLE MISC (00:05)
[2020-05-17] MEDS: predniSONE 20 MG TABLET 40 MG PO (00:06)
[2020-05-17] MEDS: DOXYCYCLINE HYCLATE 100 MG TABLET PO (00:06)
[2020-05-17 00:16] VITALS: BP 149/92; PULSE 88; RESP 20; O2SAT 98
== END 2020-05-17 00:10 | disposition home or self-care (01) ==
PROVIDERS: Emergency Provider Emergency Medicine; Family Provider Internal Medicine; PCP Internal Medicine
DX: L03.012 Cellulitis of left finger (principal)
CPT/HCPCS: 36415; 73140; 80048; 84550; 85025; 85651; 86140; 99284

== ENCOUNTER 2020-08-10 10:26 | Emergency (ER) | payer OTHER, SELFPAY ==
[2020-08-10] VITALS (15 sets, daily range): BP systolic 111–163; BP diastolic 67–88; PULSE 70–98; RESP 10–35; TEMP 37.3; O2SAT 95–99
--- NOTE | 2020-08-10 10:29 | ED.CHESTPAIN ---
HPI - Chest Pain General Chief Complaint: Chest Pain Stated Complaint: Chest hurts, vomiting since Wednesday Time Seen by Provider: 08/10/20 10:29 Source: patient Mode of arrival: Ambulatory Limitations: no limitations History of Present Illness HPI narrative: 44-year-old female smoker with history of cyclic vomiting presents with a chief complaint of multiple episodes of vomiting since Wednesday. She states that she likely was triggered due to stress for an upcoming medical test which ended up turning out okay. She has had multiple episodes of vomiting despite taking all of her medications at home. She denies any new medications or dietary change. She denies any fever or chills. She is not dizzy, weak or lightheaded. She is admittedly upset and anxious over the circumstances. She also complains of some epigastric pain which has been present for many hours this morning. She denies provocation, palliation or radiation of this pain. MD complaint: chest pain Onset (ago): hour(s) Duration: constant Onset: during rest Pain location: substernal Severity: moderate Quality: sharp Pain radiation: none Relieving factors: nothing Exacerbating factors: nothing Associated symptoms: nausea and vomiting Treatments prior to arrival chest pain: none Related Data On Oral Contraceptives: No Home Medications Medication Instructions Recorded Confirmed coenzyme Q10 [Co Q-10] 100 mg PO DAILY #0 07/27/17 08/11/19 diphenhydramine HCl [Benadryl 25 mg PO Q6HP #0 07/27/17 08/11/19 Allergy] hydrocodone-acetaminophen 1 tab PO Q6HP PRN 08/11/19 08/11/19 ibuprofen 800 mg PO DAILY 08/11/19 08/11/19 promethazine [Phenadoz] 25 mg ID TID PRN 08/11/19 08/11/19 sertraline 50 mg PO DAILY 08/11/19 12/29/19 sumatriptan 0 mg INTRANASAL PRN PRN 08/11/19 11/07/19 amitriptyline See Rx Instructions .ROUTE .COMPLEX 11/07/19 12/29/19 lorazepam 0.5 mg PO Q4-6H PRN 11/07/19 11/07/19 simvastatin 5 mg PO SUSA 11/07/19 12/29/19 ondansetron 8 mg PO TID PRN 12/29/19 12/29/19 Previous Rx's Medication Instructions Recorded potassium chloride 40 meq PO DAILY #2 tab 08/11/19 ondansetron 4 mg PO Q8H PRN #10 tab 11/07/19 doxycycline hyclate 100 mg PO BID #20 tab 05/16/20 hydrocodone-acetaminophen 1 tab PO Q4-6H PRN #10 tab 05/16/20 Allergies Allergy/AdvReac Type Severity Reaction Status Date / Time promethazine [PROMETHAZINE] Allergy Mild ERYTHEMA Verified 08/10/20 10:40 TO IV SITE PT STATES ABLE TO TAKE ID latex [LATEX] Allergy Unknown Verified 08/10/20 10:40 metoclopramide AdvReac Unknown DYSTONIA Verified 08/10/20 10:40 [METOCLOPRAMIDE] Review of Systems Constitutional Constitutional: Denies chills, Denies fatigue, Denies fever(s), Denies frequent falls, Denies lethargy and Denies weakness Eyes Eyes: Denies change in vision, Denies eye discharge, Denies irritation and Denies loss of vision ENT Ears, Nose, Mouth, and Throat: Denies change in voice, Denies dizziness, Denies neck pain, Denies sore throat and Denies throat swelling Cardiovascular Cardiovascular: Reports chest pain, Denies irregular heart rhythm, Denies lightheadedness, Denies palpitations, Denies dyspnea, Denies dyspnea on exertion and Denies orthopnea Respiratory Respiratory: Denies cough, Denies dyspnea, Denies dyspnea on exertion and Denies wheezing Gastrointestinal Gastrointestinal: Reports abdominal pain, Denies change in bowel habits, Denies diarrhea, Reports nausea and Reports vomiting Musculoskeletal Musculoskeletal: Denies neck pain and Denies numbness Integumentary/Breasts Skin/Breast: Denies pruritus, Denies erythema, Denies rash and Denies wounds Neurologic Neurologic: Denies behavioral changes, Denies confusion, Denies dizziness, Denies frequent falls, Denies loss of vision, Denies numbness and Denies weakness Psychiatric Psychiatric: Denies anxiety, Denies behavioral changes, Denies confusion, Denies depression, Denies homicidal ideation and Denies suicidal ideation Endocrine Endocrine: Denies fatigue, Denies flushing and Denies palpitations Hematologic/Lymphatic Hematologic/Lymphatic: Denies easy bruising Allergic/Immunologic Allergic/Immunologic: Denies urticaria, Denies throat swelling and Denies wheezing Patient History Medical History Chronic abdominal pain (Acute) Cyclic vomiting syndrome (Acute) Pancreatitis (Acute) Surgical History No pertinent past surgical history (Acute) Social History Smoking Status: Current every day smoker Smoking Status: Current every day smoker tobacco type: vaping alcohol intake frequency: 0-2 drinks per day Substance Use Type: marijuana Exam Narrative Exam Narrative: GENERAL: [44] year old patient appears stated age. Well-nourished, well-developed patient, in mild distress. Anxious, crying, holding an emesis bag HEAD: Atraumatic. Normocephalic. EYES: Pupils equal round and reactive. Extraocular motions intact. No scleral icterus. No injection or drainage. ENT: Nose without bleeding, purulent drainage. Throat without erythema, tonsillar hypertrophy or exudate. Airway patent. NECK: Trachea midline. Non tender CARDIOVASCULAR: Regular rate and rhythm without murmurs, gallops, or rubs. RESPIRATORY: Clear to auscultation. Breath sounds equal bilaterally. No wheezes, rales, or rhonchi. GASTROINTESTINAL: Abdomen soft, non-tender, nondistended. EXTREMITIES: No edema or joint tenderness. BACK: Nontender without deformity or crepitance. No flank tenderness. NEURO: AOx3. SKIN: No rash or erythema of visible areas Initial Vital Signs Initial Vital Signs: Vital Signs Pulse Rate 98 H 08/10/20 10:34 Pulse Oximetry 97 08/10/20 10:34 Course Course Course Narrative: patient vomiting controlled well with the above therapies. EKG is non-ischemic, troponin negative x2. Multiple causes of chest pain considered including MA, PE, pneumothorax, pneumonia, aortic dissection, and pleurisy. Patient reports no radiation, no diaphoresis, no provocation with exertion, and no vomiting Orders Ordered: ED Orders 08/10/20 10:35 EKG-12 Lead Stat 08/10/20 11:35 Complete Blood Count AUTO DIFF Stat Comprehensive Metabolic Panel Stat Lipase Stat Troponin & CK Cardiac Panel Stat 08/10/20 13:57 Troponin I Stat Discontinued Medications Haloperidol (Haldol) 5 mg IV NOW ONE Stop: 08/10/20 10:36 Last Admin: 08/10/20 11:13 Dose: 5 mg Documented by: AYANA Sodium Chloride (Normal Saline 0.9%) 1,000 mls @ 1,000 mls/hr IV BOLUS ONE Stop: 08/10/20 11:34 Last Infusion: 08/10/20 13:40 Dose: 0 mls/hr Documented by: Admin: 08/10/20 11:13 Dose: 1,000 mls/hr Documented by: AYANA Potassium Chloride 40 meq/ (Sodium Chloride) 520 mls @ 130 mls/hr IV NOW ONE Stop: 08/10/20 16:05 Last Infusion: 08/10/20 15:17 Dose: 0 mls/hr Documented by: AYANA Cosigned by: LENA Infusion: 08/10/20 13:45 Dose: 0 mls/hr Documented by: AYANA Cosigned by: LENA Admin: 08/10/20 13:00 Dose: 130 mls/hr Documented by: AYANA Cosigned by: LENA Vital Signs Vital signs: Vital Signs - 8 hr 08/10/20 10:34 08/10/20 10:37 08/10/20 10:40 Temperature 99.2 F Pulse Rate 98 H 94 H 96 H Respiratory Rate 26 H 11 L Blood Pressure 163/72 H 118/83 Pulse Oximetry 97 99 95 08/10/20 11:00 08/10/20 11:06 08/10/20 11:30 Temperature Pulse Rate 88 89 83 Respiratory Rate 11 L 10 L 19 Blood Pressure 122/80 111/67 Pulse Oximetry 08/10/20 12:00 08/10/20 12:30 08/10/20 12:31 Temperature Pulse Rate 90 87 85 Respiratory Rate 27 H 24 23 Blood Pressure 115/70 139/88 Pulse Oximetry 08/10/20 13:00 08/10/20 13:30 08/10/20 13:31 Temperature Pulse Rate 89 70 75 Respiratory Rate 25 H 15 16 Blood Pressure 128/72 125/70 Pulse Oximetry 08/10/20 14:00 08/10/20 14:30 08/10/20 15:00 Temperature Pulse Rate 85 81 93 H Respiratory Rate 27 H 25 H 35 H Blood Pressure 112/71 117/80 117/80 Pulse Oximetry MDM - Chest Pain Lab Data Result diagrams: 08/10/20 11:35 08/10/20 11:35 Labs: Lab Results 08/10/20 08/10/20 08/10/20 Range/Units 11:35 11:35 13:57 WBC 9.3 (4.5-11.0) X10^3/uL RBC 4.62 (4.0-5.2) X10^6/uL Hgb 15.0 (12.0-16.0) g/dL Hct 43.9 (36-46) % MCV 95.2 (80-100) fL MCH 32.5 (26-34) PG MCHC 34.1 (30-36) % RDW 13.0 (11.6-14.8) % Plt Count 231 (150-400) X10^3/uL Neut % (Auto) 65.0 (50-75) % Lymph % (Auto) 24.2 L (25-40) % [place] % (Auto) 9.2 (3-14) % Eos % (Auto) 0.8 L (2-4) % Baso % (Auto) 0.8 (0-2) % Neut # (Auto) 3990 (1116-8238) /uL Lymph # (Auto) 2251 (0086-7913) /uL [place] # (Auto) 855 (0-900) /uL Eos # (Auto) 74 (0-450) /uL Baso # (Auto) 74 (0-100) /uL Sodium 137 (137-145) mmol/L Potassium 3.1 L (3.4-5.1) mmol/L Chloride 84 L (98-107) mmol/L Carbon Dioxide 38 H (22-32) mmol/L BUN 31 H (7-17) mg/dL Creatinine 0.87 (0.52-1.04) mg/dL Estimated GFR > 60.0 (>60) mL/min BUN/Creatinine Ratio 35.6 H (6-22) Glucose 108 H (70-100) mg/dL Calcium 10.0 (8.4-10.2) mg/dL Total Bilirubin 1.4 H (0.2-1.3) mg/dL AST 32 (14-36) IU/L ALT 18 (<35) IU/L Alkaline Phosphatase 84 (38-126) U/L Total Creatine Kinase 81 (30-135) U/L CK-MB (CK-2) TNP CK-MB (CK-2) Rel Index TNP Troponin I < 0.012 < 0.012 (0.01-0.034) ng/mL Total Protein 9.3 H (6.3-8.2) g/dL Albumin 5.0 (3.5-5.0) g/dL Globulin 4.3 H (1.7-4.1) g/dL Albumin/Globulin Ratio 1.2 (1.0-2.8) Lipase 96 (23-300) U/L ECG Data Attestation: I personally reviewed and interpreted this ECG as follows: Interpretation: EKG is normal sinus rhythm rate [95 ] and free of any signs of ischemia or ectopy. No ST segmental elevation or depression. No T wave inversions. LVH Discharge Plan Departure Patient Disposition: Home Clinical Impression: Cyclic vomiting syndrome, Atypical chest pain Discharge Date/Time: 08/10/20 15:10 Instructions: DI for Atypical Chest Pain, Nausea and Vomiting-Adult Activity Restrictions/Additional Instructions: 1. Drink plenty of fluids with frequent small sips. 2. For the next 24 hours a clear liquid diet is advised. After that please employ a B.R.A.T. diet which would include bananas, rice, apples, toast and other mild food items 3. Please take medications as directed. 4. Please follow-up with your doctor in the next 1-2 days. Call the office for an appointment. 5. Please return to the emergency Department for any worsening or persistent symptoms, such as increasing pain or fever. Prescriptions: No Action diphenhydramine HCl [Benadryl Allergy] 25 MG tablet 25 mg PO Q6HP Qty: 0 RF: 0 coenzyme Q10 [Co Q-10] 100 MG capsule 100 mg PO DAILY Qty: 0 RF: 0 ondansetron 4 mg tablet,disintegrating 4 mg PO Q8H PRN (Reason: nausea and vomiting) Qty: 10 RF: 0 amitriptyline 25 mg tablet See Rx Instructions .ROUTE .COMPLEX RF: 0 lorazepam 0.5 mg tablet 0.5 mg PO Q4-6H PRN (Reason: Anxiety) RF: 0 simvastatin 5 mg tablet 5 mg PO SUSA RF: 0 promethazine [Phenadoz] 25 mg suppository 25 mg ID TID PRN (Reason: nausea/vomiting) RF: 0 ibuprofen 800 mg tablet 800 mg PO DAILY RF: 0 sumatriptan 20 mg/actuation spray,non-aerosol 0 mg INTRANASAL PRN PRN (Reason: Migraine Headache) RF: 0 sertraline 50 mg tablet 50 mg PO DAILY RF: 0 hydrocodone-acetaminophen 5 MG/325 MG tablet 1 tab PO Q6HP PRN (Reason: pain) RF: 0 potassium chloride 20 mEq tablet extended release 40 meq PO DAILY Qty: 2 RF: 0 ondansetron 8 mg tablet,disintegrating 8 mg PO TID PRN (Reason: Nausea) RF: 0 hydrocodone-acetaminophen 5-325 mg tablet 1 tab PO Q4-6H PRN (Reason: pain) Qty: 10 RF: 0 doxycycline hyclate 100 mg tablet 100 mg PO BID Qty: 20 RF: 0 Referrals: Joanna Storm MD [Primary Care Provider] -
[2020-08-10] MEDS: SODIUM CHLORIDE 0.9% 1,000 ML 1000 ML IV (11:13)
[2020-08-10] MEDS: HALOPERIDOL 5 MG/ML VIAL IV (11:13)
--- NOTE | 2020-08-10 11:33 | PC.NURSE ---
drawn by edita agudelo
[2020-08-10 11:42] LABS: Add Manual Diff / Slide Review NO; Basophils Percent Auto 0.8 % (0-2); Eosinophils Percent Auto 0.8 % (2-4); Hematocrit 43.9 % (36-46); Lymphocytes Percent Auto 24.2 % (25-40); Mean Corpuscular HGB Conc 34.1 % (30-36); Mean Corpuscular Hemoglobin 32.5 PG (26-34); Mean Corpuscular Volume 95.2 fL (80-100); Monocytes Percent Auto 9.2 % (3-14); Platelet Count 231 X10^3/uL (150-400); Red Blood Cell Count 4.62 X10^6/uL (4.0-5.2); White Blood Cell Count 9.3 X10^3/uL (4.5-11.0)
[2020-08-10 11:43] LABS: Neutrophils Absolute Auto 3990 /uL (1500-7000)
[2020-08-10 11:44] LABS: Basophils Absolute Auto 74 /uL (0-100); Eosinophils Absolute Auto 74 /uL (0-450); Lymphocytes Absolute Auto 2251 /uL (1100-4500); Monocytes Absolute Auto 855 /uL (0-900)
--- NOTE | 2020-08-10 11:45 | PC.NURSE ---
Pt endorses daily marijuana use, even during cyclic vomiting episodes. Feels better with a warm bath, nothing else helps. States that she has had cyclic vomiting for years.
[2020-08-10 11:48] LABS: Alanine Aminotransferase 18 IU/L (<35); Albumin Globulin Ratio 1.2 (1.0-2.8); Alkaline Phosphatase 84 U/L (38-126); Aspartate Aminotransferase 32 IU/L (14-36); BUN Creatinine Ratio 35.6 (6-22); Bilirubin Total 1.4 mg/dL (0.2-1.3); Blood Urea Nitrogen 31 mg/dL (7-17); Chloride 84 mmol/L (98-107); Creatine Kinase 81 U/L (30-135); Estimated Glomerular Filt Rate > 60.0 mL/min (>60); Globulin 4.3 g/dL (1.7-4.1); Glucose 108 mg/dL (70-100); HEMOLYSIS 43 (0-50); Lipase 96 U/L (23-300); Potassium 3.1 mmol/L (3.4-5.1); Sodium 137 mmol/L (137-145); Total Protein 9.3 g/dL (6.3-8.2)
[2020-08-10 11:55] LABS: Carbon Dioxide 38 mmol/L (22-32)
[2020-08-10 12:00] LABS: Troponin I < 0.012 ng/mL (0.01-0.034)
[2020-08-10] MEDS: POTASSIUM CHLORIDE 40 MEQ in SODIUM CHLORIDE 0.9% 500 ML 130 ML IV (13:00)
--- NOTE | 2020-08-10 13:47 | PC.NURSE ---
rochelle notified of painful IV site wit K running, ok'd pausing K, asked to await repreat troponin and reevaluate the need for K when troponin resulted.
[2020-08-10 14:27] LABS: Troponin I < 0.012 ng/mL (0.01-0.034)
== END 2020-08-10 15:10 | disposition home or self-care (01) ==
PROVIDERS: Emergency Provider Emergency Medicine; Family Provider Internal Medicine; PCP Internal Medicine
DX: R11.15 Cyclical vomiting syndrome unrelated to migraine (principal); R07.89 Other chest pain
CPT/HCPCS: 36415; 80053; 82550; 83690; 84484; 85025; 93005; 96361; 96374; 99284; J1630; J3480

== ENCOUNTER 2020-12-18 11:20 | Emergency (ER) | payer OTHER, SELFPAY ==
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
[2020-12-18 11:36] VITALS: BP 114/75; PULSE 88; RESP 16; TEMP 36.6; O2SAT 100
== END 2020-12-18 12:41 | disposition home or self-care (01) ==
PROVIDERS: Emergency Provider Emergency Medicine; Family Provider Internal Medicine; PCP Internal Medicine
DX: M25.532 Pain in left wrist (principal); M54.2 Cervicalgia; M25.561 Pain in right knee; M25.571 Pain in right ankle and joints of right foot; V89.2XXA Person injured in unspecified motor-vehicle accident, traffic, initial encounter
CPT/HCPCS: 73110; 73590; 99283

== ENCOUNTER → 2021-03-21 15:22 | Outpatient (CLI) | payer OTHER, SELFPAY ==
--- NOTE | 2021-03-21 | DI.MRI.S_ITS ---
PROCEDURE: MR CERVICAL SPINE WO CON INDICATIONS: UNSPECIDIED SPRAIN OF RIGHT SHOULDER JOINT SEQUAL TECHNIQUE: Noncontrast sagittal T1 spin echo and T2 fast spin echo, sagittal STIR, foraminal oblique sagittal T2 fast spin echo, and axial gradient echo or T2 fast spin echo through the cervical spine. COMPARISON: None. FINDINGS: Image quality: Excellent. Alignment and Curvature: There is overall cervical straightening. Bone Marrow: Marrow demonstrates normal overall signal. Spinal Cord: Visualized spinal cord has normal size and signal. No cerebellar tonsillar herniation. Paraspinous Soft Tissues: No paravertebral masses. Prevertebral soft tissues are normal in thickness. Discs: [id number] desiccation is present throughout the cervical spine. C2-C3: No disc bulge, spinal stenosis or foraminal narrowing. C3-C4: Mild disc bulge without spinal stenosis or foraminal narrowing. C4-C5: Mild disc bulge with minimal effacement of the anterior thecal sac. Motion is present at this level but there is felt to be likely mild to moderate right foraminal narrowing with uncovertebral hypertrophy. C5-C6: Mild disc bulge with moderate spinal stenosis. [id number] left and moderate right foraminal narrowing is present with uncovertebral hypertrophy. C6-C7: Mild disc bulge without spinal stenosis. No foraminal narrowing. C7-T1: Mild disc bulge without spinal stenosis or foraminal narrowing. IMPRESSION: 1. Foraminal narrowing most notable at C4-5 and C5-6 secondary to uncovertebral arthropathy. 2. Moderate spinal stenosis at C5-6 predominantly secondary to disc bulge. Dictated by: Muriel Peña M.D. on 03/21/2021 at 16:35 Approved by: Muriel Peña M.D. on 03/21/2021 at 16:38
--- NOTE | 2021-03-21 | DI.MRI.S_ITS ---
PROCEDURE: MR SHOULDER RT WO CON INDICATIONS: UNSPECIFIED SPRAIN OF RIGHT SHOULER JOINT SEQUAL TECHNIQUE: Noncontrast oblique coronal T2 fast spin echo with fat saturation, oblique sagittal T1 spin echo and T2 fast spin echo with fat saturation, axial T1 spin echo and T2 fast spin echo with fat saturation through the shoulder. COMPARISON: None. FINDINGS: Image quality: Excellent. Rotator cuff: Tendinosis and low to moderate grade articular and bursal surface partial thickness tear involving distal supraspinatus at its insertion on the humeral head is seen. Low-grade articular surface partial-thickness tear involving distal infraspinatus is also seen at its insertion on the humeral head. Distal subscapularis tendon is intact. No full-thickness rotator cuff tendon rupture. Sagittal images demonstrate no significant muscle atrophy. Bones and bursae: No bone marrow contusions or fractures. Moderate acromioclavicular joint and glenohumeral joint osteoarthritic changes are seen. Prominent subcortical cyst formation in greater tuberosity of humeral head is noted. There is trace amount of subacromial subdeltoid bursal fluid. Capsule and soft tissues: There is suggestion of superior anterior labral tear at 1 to 2 o'clock position. The glenohumeral ligaments are grossly intact. The long head of the biceps tendinosis is seen. The rotator interval appears normal, without fibrosis. The coracohumeral ligament is normal in thickness. IMPRESSION: 1. Tendinosis and low to moderate grade articular and bursal surface partial thickness tear involving distal supraspinatus at its insertion on the humeral head. Tendinosis and low-grade articular surface partial-thickness tear involving distal infraspinatus. No full-thickness rotator cuff tendon rupture. 2. Moderate acromioclavicular joint and glenohumeral joint osteoarthritis. 3. Suggestion of superior anterior labral tear at 1 to 2 o'clock position. Dictated by: Yaw Andujar M.D. on 03/21/2021 at 17:07 Approved by: Yaw Andujar M.D. on 03/21/2021 at 17:26
== END ==
PROVIDERS: Family Provider Internal Medicine; PCP Internal Medicine; Referring Provider Internal Medicine; Visit Provider Internal Medicine
DX: S46.011A Strain of muscle(s) and tendon(s) of the rotator cuff of right shoulder, initial encounter (principal); M19.011 Primary osteoarthritis, right shoulder; M48.02 Spinal stenosis, cervical region
CPT/HCPCS: 72141; 73221

== ENCOUNTER 2021-04-19 18:36 | Emergency (ER) | payer OTHER, SELFPAY ==
--- NOTE | 2021-04-19 18:40 | ED.NAVMDI ---
HPI - Nausea/Vomiting/Diarrhea General Chief complaint: Nausea/Vomiting/Diarrhea Stated complaint: siclicle vomiting x7 days Time Seen by Provider: 04/19/21 18:40 Source: patient and family Mode of arrival: Ambulatory Limitations: no limitations History of Present Illness HPI Narrative: 45-year-old female daily smoker with history of cyclic vomiting presents with significant other and a chief complaint of persistent vomiting over the course of the past week. Her known triggers include alcohol and she tearfully admits to having consumed some alcohol just prior to this. She has been in a bit to keep anything down as become fatigued and is developing some upper abdominal pain. She has had no blood in her emesis. She has had no fever or chills. She denies any chest pain or shortness of breath. She states that her discomfort worsens with motion and vomiting and improves with rest. MD complaint: nausea and vomiting Onset (ago): day(s) Description of Vomiting: food contents Description of Diarrhea: none Associated Abdominal Pain: Yes Location of pain: epigastric Radiation: diffuse Severity: mild Quality: cramping Pain Consistency: intermittent Relieving factors: none Exacerbating factors: vomiting and alcohol intake Associated symptoms: denies other symptoms Related Data Home Medications Medication Instructions Recorded Confirmed coenzyme Q10 [Co Q-10] 100 mg PO DAILY #0 07/27/17 08/11/19 diphenhydramine HCl [Benadryl 25 mg PO Q6HP #0 07/27/17 08/11/19 Allergy] hydrocodone-acetaminophen 1 tab PO Q6HP PRN 08/11/19 08/11/19 ibuprofen 800 mg PO DAILY 08/11/19 08/11/19 promethazine [Phenadoz] 25 mg [place] TID PRN 08/11/19 08/11/19 sertraline 50 mg PO DAILY 08/11/19 12/29/19 sumatriptan 0 mg INTRANASAL PRN PRN 08/11/19 11/07/19 amitriptyline See Rx Instructions .ROUTE .COMPLEX 11/07/19 12/29/19 lorazepam 0.5 mg PO Q4-6H PRN 11/07/19 11/07/19 simvastatin 5 mg PO SUSA 11/07/19 12/29/19 ondansetron 8 mg PO TID PRN 12/29/19 12/29/19 Previous Rx's Medication Instructions Recorded potassium chloride 40 meq PO DAILY #2 tab 08/11/19 ondansetron 4 mg PO Q8H PRN #10 tab 11/07/19 doxycycline hyclate 100 mg PO BID #20 tab 05/16/20 hydrocodone-acetaminophen 1 tab PO Q4-6H PRN #10 tab 05/16/20 Allergies Allergy/AdvReac Type Severity Reaction Status Date / Time promethazine [PROMETHAZINE] Allergy Mild ERYTHEMA Verified 04/19/21 18:45 TO IV SITE PT STATES ABLE TO TAKE [place] latex [LATEX] Allergy Unknown Verified 04/19/21 18:45 metoclopramide AdvReac Unknown DYSTONIA Verified 04/19/21 18:45 [METOCLOPRAMIDE] Review of Systems Constitutional Constitutional: Denies chills, Denies fatigue, Denies fever(s), Denies frequent falls, Denies lethargy and Denies weakness Eyes Eyes: Denies change in vision, Denies eye discharge, Denies irritation and Denies loss of vision ENT Ears, Nose, Mouth, and Throat: Denies change in voice, Denies dizziness, Denies neck pain, Denies sore throat and Denies throat swelling Cardiovascular Cardiovascular: Denies chest pain, Denies irregular heart rhythm, Denies lightheadedness, Denies palpitations, Denies dyspnea, Denies dyspnea on exertion and Denies orthopnea Respiratory Respiratory: Denies cough, Denies dyspnea, Denies dyspnea on exertion and Denies wheezing Gastrointestinal Gastrointestinal: Reports abdominal pain, Denies change in bowel habits, Denies diarrhea, Reports nausea and Reports vomiting Musculoskeletal Musculoskeletal: Denies neck pain and Denies numbness Integumentary/Breasts Skin/Breast: Denies pruritus, Denies erythema, Denies rash and Denies wounds Neurologic Neurologic: Denies behavioral changes, Denies confusion, Denies dizziness, Denies frequent falls, Denies loss of vision, Denies numbness and Denies weakness Psychiatric Psychiatric: Denies anxiety, Denies behavioral changes, Denies confusion, Denies depression, Denies homicidal ideation and Denies suicidal ideation Endocrine Endocrine: Denies fatigue, Denies flushing and Denies palpitations Hematologic/Lymphatic Hematologic/Lymphatic: Denies easy bruising Allergic/Immunologic Allergic/Immunologic: Denies urticaria, Denies throat swelling and Denies wheezing Patient History Medical History Chronic abdominal pain Cyclic vomiting syndrome Pancreatitis Surgical History No pertinent past surgical history Social History Smoking Status: Current every day smoker Smoking Status: Current every day smoker tobacco type: vaping alcohol intake frequency: 0-2 drinks per day Alcohol type: wine Substance Use Type: marijuana Exam Narrative Exam Narrative: GENERAL: [45] year old patient appears stated age. Well-nourished, well-developed patient, in mild distress. Tearful, holding an emesis bag HEAD: Atraumatic. Normocephalic. EYES: Pupils equal round and reactive. Extraocular motions intact. No scleral icterus. No injection or drainage. ENT: Nose without bleeding, purulent drainage. Throat without erythema, tonsillar hypertrophy or exudate. Airway patent. NECK: Trachea midline. Non tender CARDIOVASCULAR: Regular rate and rhythm without murmurs, gallops, or rubs. RESPIRATORY: Clear to auscultation. Breath sounds equal bilaterally. No wheezes, rales, or rhonchi. GASTROINTESTINAL: Abdomen soft, n minimal epigastric tenderness, nondistended. EXTREMITIES: No edema or joint tenderness. BACK: Nontender without deformity or crepitance. No flank tenderness. NEURO: AOx3. SKIN: No rash or erythema of visible areas Initial Vital Signs Initial Vital Signs: Vital Signs Temperature 98.1 F 04/19/21 18:42 Pulse Rate 75 04/19/21 18:42 Respiratory Rate 18 04/19/21 18:42 Blood Pressure 206/100 H 04/19/21 18:42 Pulse Oximetry 99 04/19/21 18:42 Course Course Course Narrative: Patient has complete resolution of symptoms with above-stated therapies Orders Ordered: ED Orders 04/19/21 19:50 Complete Blood Count AUTO DIFF Stat Comprehensive Metabolic Panel Stat Lipase Stat Magnesium Stat Discontinued Medications Haloperidol (Haloperidol 5 Mg/Ml Vial) 5 mg IV NOW ONE Stop: 04/19/21 18:47 Last Admin: 04/19/21 19:53 Dose: 5 mg Documented by: BETO Sodium Chloride (Normal Saline 0.9%) 1,000 mls @ 1,000 mls/hr IV BOLUS ONE Stop: 04/19/21 19:40 Last Infusion: 04/19/21 20:45 Dose: 0 mls/hr Documented by: Admin: 04/19/21 19:53 Dose: 1,000 mls/hr Documented by: BETO POTASSIUM CHLORIDE IN WATER (Potassium Cl 10 Meq/100 Ml Megan) 10 meq in 100 mls @ 100 mls/hr IV Q1H LINDA Stop: 04/19/21 22:44 Last Infusion: 04/19/21 22:41 Dose: 0 mls/hr Documented by: Admin: 04/19/21 21:43 Dose: 100 mls/hr Documented by: Infusion: 04/19/21 21:43 Dose: 100 mls/hr Documented by: Admin: 04/19/21 20:44 Dose: 100 mls/hr Documented by: BETO Vital Signs Vital signs: Vital Signs - 8 hr 04/19/21 18:42 04/19/21 23:45 Temperature 98.1 F Pulse Rate 75 71 Respiratory Rate 18 12 Blood Pressure 206/100 H 109/67 Pulse Oximetry 99 100 MDM - Nausea/Vomiting/Diarrhea Lab Data Result diagrams: 04/19/21 19:50 04/19/21 19:50 Labs: Lab Results 04/19/21 04/19/21 Range/Units 19:50 19:50 WBC 8.4 (4.5-11.0) X10^3/uL RBC 4.54 (4.0-5.2) X10^6/uL Hgb 14.6 (12.0-16.0) g/dL Hct 42.9 (36-46) % MCV 94.4 (80-100) fL MCH 32.0 (26-34) PG MCHC 33.9 (30-36) % RDW 14.2 (11.6-14.8) % Plt Count 246 (150-400) X10^3/uL Neut % (Auto) 70.9 (50-75) % Lymph % (Auto) 20.8 L (25-40) % [place] % (Auto) 7.3 (3-14) % Eos % (Auto) 0.5 L (2-4) % Baso % (Auto) 0.5 (0-2) % Neut # (Auto) 5900 (1174-8929) /uL Lymph # (Auto) 1700 (9498-2131) /uL [place] # (Auto) 600 (0-900) /uL Eos # (Auto) 0 (0-450) /uL Baso # (Auto) 0 (0-100) /uL Sodium 135 L (137-145) mmol/L Potassium 3.0 L (3.4-5.1) mmol/L Chloride 90 L (98-107) mmol/L Carbon Dioxide 34 H (22-32) mmol/L BUN 26 H (7-17) mg/dL Creatinine 0.69 (0.52-1.04) mg/dL Estimated GFR > 60.0 (>60) mL/min BUN/Creatinine Ratio 37.7 H (6-22) Glucose 110 H (70-100) mg/dL Calcium 10.2 (8.4-10.2) mg/dL Magnesium 2.4 H (1.6-2.3) mg/dL Total Bilirubin 1.5 H (0.2-1.3) mg/dL AST 29 (14-36) IU/L ALT 25 (<35) IU/L Alkaline Phosphatase 90 (38-126) U/L Total Protein 8.4 H (6.3-8.2) g/dL Albumin 4.9 (3.5-5.0) g/dL Globulin 3.5 (1.7-4.1) g/dL Albumin/Globulin Ratio 1.4 (1.0-2.8) Lipase 269 (23-300) U/L MDM Narrative Medical decision making narrative: Multiple etiologies for patient's symptoms considered including: [Cyclic vomiting versus pancreatitis versus bowel obstruction versus other] Patient's symptoms improved over duration of stay with above-stated therapies. Findings and discharge diagnosis discussed with patient/family followed by verbalization of understanding Return precautions discussed with patient/family whom verbalize understanding. Discharge Plan Departure Patient Disposition: Home Clinical Impression: Acute hypokalemia Nausea and vomiting Qualifiers: Vomiting type: unspecified Vomiting Intractability: non-intractable Qualified Code(s): R11.2 - Nausea with vomiting, unspecified Instructions: DI for Nausea -- Adult, DI for Vomiting -- Adult Activity Restrictions/Additional Instructions: 1. Drink plenty of fluids with frequent small sips. 2. For the next 24 hours a clear liquid diet is advised. After that please employ a B.R.A.T. diet which would include bananas, rice, apples, toast and other mild food items 3. Please take medications as directed. 4. Please follow-up with your doctor in the next 1-2 days. Call the office for an appointment. 5. Please return to the emergency Department for any worsening or persistent symptoms, such as increasing pain or fever. Prescriptions: No Action diphenhydramine HCl [Benadryl Allergy] 25 MG tablet 25 mg PO Q6HP Qty: 0 RF: 0 coenzyme Q10 [Co Q-10] 100 MG capsule 100 mg PO DAILY Qty: 0 RF: 0 ondansetron 4 mg tablet,disintegrating 4 mg PO Q8H PRN (Reason: nausea and vomiting) Qty: 10 RF: 0 amitriptyline 25 mg tablet See Rx Instructions .ROUTE .COMPLEX RF: 0 lorazepam 0.5 mg tablet 0.5 mg PO Q4-6H PRN (Reason: Anxiety) RF: 0 simvastatin 5 mg tablet 5 mg PO SUSA RF: 0 promethazine [Phenadoz] 25 mg suppository 25 mg MI TID PRN (Reason: nausea/vomiting) RF: 0 ibuprofen 800 mg tablet 800 mg PO DAILY RF: 0 sumatriptan 20 mg/actuation spray,non-aerosol 0 mg INTRANASAL PRN PRN (Reason: Migraine Headache) RF: 0 sertraline 50 mg tablet 50 mg PO DAILY RF: 0 hydrocodone-acetaminophen 5 MG/325 MG tablet 1 tab PO Q6HP PRN (Reason: pain) RF: 0 potassium chloride 20 mEq tablet extended release 40 meq PO DAILY Qty: 2 RF: 0 ondansetron 8 mg tablet,disintegrating 8 mg PO TID PRN (Reason: Nausea) RF: 0 hydrocodone-acetaminophen 5-325 mg tablet 1 tab PO Q4-6H PRN (Reason: pain) Qty: 10 RF: 0 doxycycline hyclate 100 mg tablet 100 mg PO BID Qty: 20 RF: 0 Referrals: Joanna Storm MD [Primary Care Provider] -
[2021-04-19 18:42] VITALS: BP 206/100; PULSE 75; RESP 18; TEMP 36.7; O2SAT 99; BMI 20.3
[2021-04-19] MEDS: SODIUM CHLORIDE 0.9% 1,000 ML 1000 ML IV (19:53)
[2021-04-19] MEDS: HALOPERIDOL 5 MG/ML VIAL IV (19:53)
[2021-04-19 20:14] LABS: Add Manual Diff / Slide Review NO; Basophils Absolute Auto 0 /uL (0-100); Basophils Percent Auto 0.5 % (0-2); Eosinophils Absolute Auto 0 /uL (0-450); Eosinophils Percent Auto 0.5 % (2-4); Hematocrit 42.9 % (36-46); Hemoglobin 14.6 g/dL (12.0-16.0); Lymphocytes Absolute Auto 1700 /uL (1100-4500); Lymphocytes Percent Auto 20.8 % (25-40); Mean Corpuscular HGB Conc 33.9 % (30-36); Mean Corpuscular Volume 94.4 fL (80-100); Monocytes Absolute Auto 600 /uL (0-900); Monocytes Percent Auto 7.3 % (3-14); Neutrophils Absolute Auto 5900 /uL (1500-7000); Neutrophils Percent Auto 70.9 % (50-75); Platelet Count 246 X10^3/uL (150-400); Red Blood Cell Count 4.54 X10^6/uL (4.0-5.2); Red Cell Distribution Width 14.2 % (11.6-14.8); White Blood Cell Count 8.4 X10^3/uL (4.5-11.0)
[2021-04-19 20:24] LABS: Alanine Aminotransferase 25 IU/L (<35); Albumin 4.9 g/dL (3.5-5.0); Albumin Globulin Ratio 1.4 (1.0-2.8); Alkaline Phosphatase 90 U/L (38-126); Aspartate Aminotransferase 29 IU/L (14-36); BUN Creatinine Ratio 37.7 (6-22); Bilirubin Total 1.5 mg/dL (0.2-1.3); Blood Urea Nitrogen 26 mg/dL (7-17); Calcium 10.2 mg/dL (8.4-10.2); Carbon Dioxide 34 mmol/L (22-32); Chloride 90 mmol/L (98-107); Estimated Glomerular Filt Rate > 60.0 mL/min (>60); Globulin 3.5 g/dL (1.7-4.1); Glucose 110 mg/dL (70-100); HEMOLYSIS < 15 (0-50); Lipase 269 U/L (23-300); Magnesium 2.4 mg/dL (1.6-2.3); Sodium 135 mmol/L (137-145); Total Protein 8.4 g/dL (6.3-8.2)
[2021-04-19] MEDS: POTASSIUM CHLORIDE IN WATER 10 MEQ/100 ML PIGGYBACK 100 MEQ IV ×2 (20:44→21:43)
[2021-04-19 23:45] VITALS: BP 109/67; PULSE 71; RESP 12; O2SAT 100
== END 2021-04-19 23:35 | disposition home or self-care (01) ==
PROVIDERS: Emergency Provider Emergency Medicine; Family Provider Internal Medicine; PCP Internal Medicine
DX: E87.6 Hypokalemia (principal); R11.2 Nausea with vomiting, unspecified
CPT/HCPCS: 36415; 80053; 83690; 83735; 85025; 96361; 96365; 96366; 99284; J1630

== ENCOUNTER 2021-07-08 09:03 | Emergency (ER) | payer OTHER, SELFPAY ==
[2021-07-08 09:10] VITALS: BP 169/101; PULSE 83; RESP 97; TEMP 36.3; O2SAT 97
--- NOTE | 2021-07-08 09:41 | ED_ITS ---
HPI - Nausea/Vomiting/Diarrhea General Chief complaint: Nausea/Vomiting/Diarrhea Stated complaint: sick vomiting syndrome, pain, surgery wednesday, Time Seen by Provider: 07/08/21 09:10 Source: patient Mode of arrival: Ambulatory Limitations: no limitations History of Present Illness HPI Narrative: Patient is a 45-year-old female. Known history of cyclic vomiting syndrome. Prior ED notes state that her triggers are either marijuana or alcohol use. Has been seen here in the past for the same symptoms. On Wednesday she underwent a rotator cuff surgery at an outside facility. Last evening started vomiting. Tried Zofran and Phenergan suppositories at home without improvement. She is here for vomiting. Related Data Home Medications Medication Instructions Recorded Confirmed coenzyme Q10 100 mg capsule (Co 100 mg PO DAILY #0 07/27/17 08/11/19 Q-10) diphenhydramine HCl 25 mg tablet 25 mg PO Q6HP #0 07/27/17 08/11/19 (Benadryl Allergy) hydrocodone 5 mg-acetaminophen 325 1 tab PO Q6HP PRN 08/11/19 08/11/19 mg tablet ibuprofen 800 mg tablet 800 mg PO DAILY 08/11/19 08/11/19 promethazine 25 mg rectal 25 mg [place] TID PRN 08/11/19 08/11/19 suppository (Phenadoz) sertraline 50 mg tablet 50 mg PO DAILY 08/11/19 12/29/19 sumatriptan 20 mg/actuation nasal 0 mg INTRANASAL PRN PRN 08/11/19 11/07/19 spray amitriptyline 25 mg tablet See Rx Instructions .ROUTE .COMPLEX 11/07/19 12/29/19 lorazepam 0.5 mg tablet 0.5 mg PO Q4-6H PRN 11/07/19 11/07/19 simvastatin 5 mg tablet 5 mg PO SUSA 11/07/19 12/29/19 ondansetron 8 mg disintegrating 8 mg PO TID PRN 12/29/19 12/29/19 tablet Previous Rx's Medication Instructions Recorded potassium chloride 20 mEq 40 meq PO DAILY #2 tab 08/11/19 tablet,extended release ondansetron 4 mg disintegrating 4 mg PO Q8H PRN #10 tab 11/07/19 tablet doxycycline hyclate 100 mg tablet 100 mg PO BID #20 tab 05/16/20 hydrocodone 5 mg-acetaminophen 325 1 tab PO Q4-6H PRN #10 tab 05/16/20 mg tablet Allergies Allergy/AdvReac Type Severity Reaction Status Date / Time promethazine [PROMETHAZINE] Allergy Mild ERYTHEMA Verified 04/19/21 18:45 TO IV SITE PT STATES ABLE TO TAKE [place] latex [LATEX] Allergy Unknown Verified 04/19/21 18:45 metoclopramide AdvReac Unknown DYSTONIA Verified 04/19/21 18:45 [METOCLOPRAMIDE] Review of Systems Constitutional Constitutional: Reports system reviewed and no additional complaints, except as documented Cardiovascular Cardiovascular: Reports system reviewed and no additional complaints, except as documented Respiratory Respiratory: Reports system reviewed and no additional complaints, except as documented Gastrointestinal Gastrointestinal: Reports as per HPI Musculoskeletal Comments: Right shoulder pain Integumentary/Breasts Skin/Breast: Reports system reviewed and no additional complaints, except as documented Neurologic Neurologic: Reports system reviewed and no additional complaints, except as documented Hematologic/Lymphatic On Anticoagulants: No Allergic/Immunologic Allergic/Immunologic: Reports system reviewed and no additional complaints, except as documented Patient History Medical History (Updated 07/08/21 @ 13:44 by Brady Huerta DO) Chronic abdominal pain Cyclic vomiting syndrome Pancreatitis Surgical History No pertinent past surgical history Social History Smoking Status: Current every day smoker Smoking Status: Current every day smoker tobacco type: vaping alcohol intake frequency: 0-2 drinks per day Alcohol type: wine Substance Use Type: marijuana Exam Initial Vital Signs Initial Vital Signs: Vital Signs Temperature 97.3 F L 07/08/21 09:10 Pulse Rate 83 07/08/21 09:10 Respiratory Rate 97 H 07/08/21 09:10 Blood Pressure 169/101 H 07/08/21 09:10 Pulse Oximetry 97 07/08/21 09:10 Const Other: Uncomfortable. HENMT Head: normal to inspection and normocephalic Eyes General: appearance normal, both eyes and all related structures Resp Effort & Inspection: normal respiratory effort Cardio Rate: regular rate GI Inspection: normal to inspection Skin General: no rashes or lesions noted Neuro General: patient alert and patient awake Extrem Other: Right shoulder in a sling Psych Appearance: grossly normal and well kempt Course Orders Ordered: ED Orders 07/08/21 09:37 Complete Blood Count AUTO DIFF Stat Comprehensive Metabolic Panel Stat Lipase Stat Test Serum,Qual Stat Discontinued Medications Haloperidol (Haloperidol 5 Mg/Ml Vial) 5 mg IV NOW ONE Stop: 07/08/21 09:47 Last Admin: 07/08/21 09:55 Dose: 5 mg Documented by: PONCE Sodium Chloride (Normal Saline 0.9%) 1,000 mls @ 1,000 mls/hr IV BOLUS ONE Stop: 07/08/21 10:41 Last Infusion: 07/08/21 11:10 Dose: 0 mls/hr Documented by: Admin: 07/08/21 09:45 Dose: 1,000 mls/hr Documented by: PONCE Lorazepam (Lorazepam 2 Mg/Ml Inj) 1 mg IV NOW ONE Stop: 07/08/21 11:18 Last Admin: 07/08/21 11:33 Dose: 1 mg Documented by: ANKIT Vital Signs Vital signs: Vital Signs - 8 hr 07/08/21 09:10 07/08/21 10:00 07/08/21 11:41 Temperature 97.3 F L Pulse Rate 83 73 Respiratory Rate 97 H 12 16 Blood Pressure 169/101 H 173/83 H Pulse Oximetry 97 88 L 98 07/08/21 12:27 Temperature Pulse Rate 88 Respiratory Rate 15 Blood Pressure 172/101 H Pulse Oximetry 98 MDM - Nausea/Vomiting/Diarrhea Medical Records Attestation: I reviewed the patient's medical records. Lab Data Result diagrams: 07/08/21 09:37 07/08/21 09:37 Labs: Lab Results 07/08/21 07/08/21 07/08/21 Range/Units 09:37 09:37 09:37 WBC 11.7 H (4.5-11.0) X10^3/uL RBC 4.34 (4.0-5.2) X10^6/uL Hgb 14.1 (12.0-16.0) g/dL Hct 41.3 (36-46) % MCV 95.2 (80-100) fL MCH 32.5 (26-34) PG MCHC 34.1 (30-36) % RDW 13.0 (11.6-14.8) % Plt Count 286 (150-400) X10^3/uL Neut % (Auto) 90.6 H (50-75) % Lymph % (Auto) 6.3 L (25-40) % [place] % (Auto) 2.7 L (3-14) % Eos % (Auto) 0.1 L (2-4) % Baso % (Auto) 0.3 (0-2) % Neut # (Auto) 61993 H (5503-5262) /uL Lymph # (Auto) 700 L (0500-8543) /uL [place] # (Auto) 300 (0-900) /uL Eos # (Auto) 0 (0-450) /uL Baso # (Auto) 0 (0-100) /uL Sodium 141 (137-145) mmol/L Potassium 3.2 L (3.4-5.1) mmol/L Chloride 99 (98-107) mmol/L Carbon Dioxide 26 (22-32) mmol/L BUN 15 (7-17) mg/dL Creatinine 0.75 (0.52-1.04) mg/dL Estimated GFR > 60.0 (>60) mL/min BUN/Creatinine Ratio 20.0 (6-22) Glucose 206 H (70-100) mg/dL Calcium 10.8 H (8.4-10.2) mg/dL Total Bilirubin 1.0 (0.2-1.3) mg/dL AST 30 (14-36) IU/L ALT 27 (<35) IU/L Alkaline Phosphatase 80 (38-126) U/L Total Protein 8.7 H (6.3-8.2) g/dL Albumin 4.9 (3.5-5.0) g/dL Globulin 3.8 (1.7-4.1) g/dL Albumin/Globulin Ratio 1.3 (1.0-2.8) Lipase 32 (23-300) U/L Serum , Qual Negative (Negative) MDM Narrative Medical decision making narrative: Patient does have a history of cyclic vomiting syndrome. She was given Haldol and Ativan. She was no longer retching afterwards. Tolerated a small amount of oral intake. She does have nausea medication at home. No further workup needed in the emergency department. Discharge Plan Departure Patient Disposition: Home Clinical Impression: Cyclic vomiting syndrome Instructions: Nausea and Vomiting-Adult Activity Restrictions/Additional Instructions: I do recommend that you stay away from the triggers that have classically caused your symptoms. Be sure to increase your fluid intake but drinking small amounts of fluid over longer periods of time. Continue the rest of your medications as directed. Contact your primary doctor for follow-up. Prescriptions: No Action diphenhydramine HCl [Benadryl Allergy] 25 MG tablet 25 mg PO Q6HP Qty: 0 RF: 0 coenzyme Q10 [Co Q-10] 100 MG capsule 100 mg PO DAILY Qty: 0 RF: 0 ondansetron 4 mg tablet,disintegrating 4 mg PO Q8H PRN (Reason: nausea and vomiting) Qty: 10 RF: 0 amitriptyline 25 mg tablet See Rx Instructions .ROUTE .COMPLEX RF: 0 lorazepam 0.5 mg tablet 0.5 mg PO Q4-6H PRN (Reason: Anxiety) RF: 0 simvastatin 5 mg tablet 5 mg PO SUSA RF: 0 promethazine [Phenadoz] 25 mg suppository 25 mg [place] TID PRN (Reason: nausea/vomiting) RF: 0 ibuprofen 800 mg tablet 800 mg PO DAILY RF: 0 sumatriptan 20 mg/actuation spray,non-aerosol 0 mg INTRANASAL PRN PRN (Reason: Migraine Headache) RF: 0 sertraline 50 mg tablet 50 mg PO DAILY RF: 0 hydrocodone-acetaminophen 5 MG/325 MG tablet 1 tab PO Q6HP PRN (Reason: pain) RF: 0 potassium chloride 20 mEq tablet extended release 40 meq PO DAILY Qty: 2 RF: 0 ondansetron 8 mg tablet,disintegrating 8 mg PO TID PRN (Reason: Nausea) RF: 0 hydrocodone-acetaminophen 5-325 mg tablet 1 tab PO Q4-6H PRN (Reason: pain) Qty: 10 RF: 0 doxycycline hyclate 100 mg tablet 100 mg PO BID Qty: 20 RF: 0 Referrals: Joanna Storm MD [Primary Care Provider] -
[2021-07-08] MEDS: SODIUM CHLORIDE 0.9% 1,000 ML 1000 ML IV (09:45)
[2021-07-08 09:47] LABS: Add Manual Diff / Slide Review NO; Basophils Absolute Auto 0 /uL (0-100); Basophils Percent Auto 0.3 % (0-2); Eosinophils Absolute Auto 0 /uL (0-450); Eosinophils Percent Auto 0.1 % (2-4); Hematocrit 41.3 % (36-46); Hemoglobin 14.1 g/dL (12.0-16.0); Lymphocytes Absolute Auto 700 /uL (1100-4500); Lymphocytes Percent Auto 6.3 % (25-40); Mean Corpuscular HGB Conc 34.1 % (30-36); Mean Corpuscular Hemoglobin 32.5 PG (26-34); Mean Corpuscular Volume 95.2 fL (80-100); Monocytes Absolute Auto 300 /uL (0-900); Monocytes Percent Auto 2.7 % (3-14); Neutrophils Absolute Auto 10600 /uL (1500-7000); Neutrophils Percent Auto 90.6 % (50-75); Platelet Count 286 X10^3/uL (150-400); Red Blood Cell Count 4.34 X10^6/uL (4.0-5.2); White Blood Cell Count 11.7 X10^3/uL (4.5-11.0)
--- NOTE | 2021-07-08 09:47 | PC.NURSE ---
Patient has history of cyclic vomiting. Patient has been seen and evaluated before with good success with Haldol. At this time patient reports it doesn't work and is requesting dilaudid. Family reports patient has had good success with haldol in the past. Patient agreeable to trying haldol
[2021-07-08] MEDS: HALOPERIDOL 5 MG/ML VIAL IV (09:55)
[2021-07-08 10:00] VITALS: RESP 12; O2SAT 88
[2021-07-08 10:00] LABS: Albumin 4.9 g/dL (3.5-5.0); Albumin Globulin Ratio 1.3 (1.0-2.8); Alkaline Phosphatase 80 U/L (38-126); Aspartate Aminotransferase 30 IU/L (14-36); Blood Urea Nitrogen 15 mg/dL (7-17); Calcium 10.8 mg/dL (8.4-10.2); Carbon Dioxide 26 mmol/L (22-32); Chloride 99 mmol/L (98-107); Estimated Glomerular Filt Rate > 60.0 mL/min (>60); Globulin 3.8 g/dL (1.7-4.1); Glucose 206 mg/dL (70-100); Lipase 32 U/L (23-300); Potassium 3.2 mmol/L (3.4-5.1); Sodium 141 mmol/L (137-145); Total Protein 8.7 g/dL (6.3-8.2)
[2021-07-08 10:06] LABS: Alanine Aminotransferase 27 IU/L (<35); HEMOLYSIS 17 (0-50)
--- NOTE | 2021-07-08 10:23 | PC.NURSE ---
patient oxygen level dropped after administration of Haldol. Resp even and unlabored, patient sleeping. Placed on 2LNC oxygen saturations increased to mid to high 90's
[2021-07-08 10:39] LABS: Pregnancy Test Serum,Qual Negative (Negative)
--- NOTE | 2021-07-08 10:46 | PC.NURSE ---
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
[2021-07-08] MEDS: LORazepam 2 MG/ML INJ 1 MG IV (11:33)
[2021-07-08 11:41] VITALS: BP 173/83; PULSE 73; RESP 16; O2SAT 98
--- NOTE | 2021-07-08 12:04 | PC.NURSE ---
Pt appears restless in room, no active vomiting, respirations even and unlabored, family member at bedside.
[2021-07-08 12:27] VITALS: BP 172/101; PULSE 88; RESP 15; O2SAT 98
--- NOTE | 2021-07-08 13:35 | PC.NURSE ---
Pt resting comfortably in bed, tolerated ice chips and now requesting milk, respirations even and unlabored, denies any recent vomiting.
== END 2021-07-08 13:30 | disposition home or self-care (01) ==
PROVIDERS: Emergency Provider Emergency Medicine; Family Provider Internal Medicine; PCP Internal Medicine
DX: R11.15 Cyclical vomiting syndrome unrelated to migraine (principal)
CPT/HCPCS: 36415; 80053; 83690; 84703; 85025; 96361; 96374; 96375; 99284; J1630; J2060

== ENCOUNTER 2021-08-11 18:52 | Emergency (ER) | payer OTHER, SELFPAY ==
[2021-08-11] VITALS (9 sets, daily range): BP systolic 91–119; BP diastolic 55–73; PULSE 59–101; RESP 16; TEMP 37.1; O2SAT 95–99
[2021-08-11] MEDS: ONDANSETRON 4 MG/2 ML INJ IV (19:54)
--- NOTE | 2021-08-11 19:57 | ED.NAVMDI ---
HPI - Nausea/Vomiting/Diarrhea General Chief complaint: Nausea/Vomiting/Diarrhea Stated complaint: HAD COVID SHOT SICK THROWING UP Time Seen by Provider: 08/11/21 19:33 Source: patient Mode of arrival: Ambulatory Limitations: no limitations History of Present Illness HPI Narrative: 45-year-old woman with a history of cyclic vomiting syndrome began throwing up yesterday and attributes the trigger to her 2nd at [employer] COVID shot 48 hours ago. She notes that when she starts throwing up nothing seems to help except sitting in a hot bath tub. She has had nothing to eat for the last 24 hours. When asked about hyperemesis cannabinoid syndrome she states that when she tried stopping marijuana the vomiting got worse. She does continue to smoke regularly. She describes no fevers, cough, chills, diarrhea. She has diffuse abdominal pain that she always associates with her cyclical vomiting syndrome. Related Data Home Medications Medication Instructions Recorded Confirmed coenzyme Q10 100 mg capsule (Co 100 mg PO DAILY #0 07/27/17 08/11/19 Q-10) diphenhydramine HCl 25 mg tablet 25 mg PO Q6HP #0 07/27/17 08/11/19 (Benadryl Allergy) hydrocodone 5 mg-acetaminophen 325 1 tab PO Q6HP PRN 08/11/19 08/11/19 mg tablet ibuprofen 800 mg tablet 800 mg PO DAILY 08/11/19 08/11/19 promethazine 25 mg rectal 25 mg WI TID PRN 08/11/19 08/11/19 suppository (Phenadoz) sertraline 50 mg tablet 50 mg PO DAILY 08/11/19 12/29/19 sumatriptan 20 mg/actuation nasal 0 mg INTRANASAL PRN PRN 08/11/19 11/07/19 spray amitriptyline 25 mg tablet See Rx Instructions .ROUTE .COMPLEX 11/07/19 12/29/19 lorazepam 0.5 mg tablet 0.5 mg PO Q4-6H PRN 11/07/19 11/07/19 simvastatin 5 mg tablet 5 mg PO SUSA 11/07/19 12/29/19 ondansetron 8 mg disintegrating 8 mg PO TID PRN 12/29/19 12/29/19 tablet Previous Rx's Medication Instructions Recorded potassium chloride 20 mEq 40 meq PO DAILY #2 tab 08/11/19 tablet,extended release ondansetron 4 mg disintegrating 4 mg PO Q8H PRN #10 tab 11/07/19 tablet doxycycline hyclate 100 mg tablet 100 mg PO BID #20 tab 05/16/20 hydrocodone 5 mg-acetaminophen 325 1 tab PO Q4-6H PRN #10 tab 05/16/20 mg tablet promethazine 25 mg rectal 25 mg WI Q6H PRN #12 ea 08/11/21 suppository promethazine 25 mg tablet 25 mg PO TID PRN #20 tab 08/11/21 Allergies Allergy/AdvReac Type Severity Reaction Status Date / Time promethazine [PROMETHAZINE] Allergy Mild ERYTHEMA Verified 08/11/21 19:06 TO IV SITE PT STATES ABLE TO TAKE [place] latex [LATEX] Allergy Unknown Verified 08/11/21 19:06 metoclopramide AdvReac Unknown DYSTONIA Verified 08/11/21 19:06 [METOCLOPRAMIDE] Review of Systems Review of Systems Narrative: Remainder of complete review of systems is otherwise unremarkable except for that included in the HPI. Patient History Medical History Chronic abdominal pain Cyclic vomiting syndrome Marijuana use, continuous Pancreatitis Surgical History No pertinent past surgical history Social History Smoking Status: Current every day smoker Smoking Status: Current every day smoker tobacco type: vaping alcohol intake frequency: holidays/special occasions only Alcohol type: wine Substance Use Type: marijuana Exam Narrative Exam Narrative: General: Healthy appearing, crying with dramatic affect of behavior. HEENT: Moist mucous membranes, normal sclera with reactive pupils, Neck: No JVD, supple Respiratory: Lungs are clear to auscultation, no wheezing no rales no rhonchi. Full and symmetrical air movement Cardiac: Minor tachycardia but otherwise Regular rate and rhythm no murmurs no bruits Abdomen: Soft, tender in the epigastrium without rebound or guarding, good bowel tones, no flank pain Skin: Warm and dry, no rashes Neurologic: Grossly neurologically intact with no obvious asymmetries or abnormalities Extremities: No trauma, well perfused Psych: Dramatic affect but fluent speech, cooperative Initial Vital Signs Initial Vital Signs: Vital Signs Temperature 98.7 F 08/11/21 19:05 Pulse Rate 101 H 08/11/21 19:05 Respiratory Rate 16 08/11/21 19:05 Blood Pressure 119/73 08/11/21 19:05 Pulse Oximetry 96 08/11/21 19:05 Course Orders Ordered: ED Orders 08/11/21 20:00 COVID19 -Nasal swab/Pre-Proc Stat 08/11/21 20:50 CBC Auto Diff [Complete Blood Count AUTO DIFF] Stat Comprehensive Metabolic Panel Stat 08/11/21 21:02 Test Urine Stat Urinalysis and Microscopic Stat Discontinued Medications Diphenhydramine HCl (Diphenhydramine 50 Mg/Ml Vial) 25 mg IV NOW ONE Stop: 08/11/21 20:10 Last Admin: 08/11/21 20:40 Dose: 25 mg Documented by: KATIUSKA Haloperidol (Haloperidol 5 Mg/Ml Vial) 5 mg IV NOW ONE Stop: 08/11/21 20:10 Last Admin: 08/11/21 20:40 Dose: 5 mg Documented by: KATIUSKA Sodium Chloride (Normal Saline 0.9%) 1,000 mls @ 2,000 mls/hr IV BOLUS ONE Stop: 08/11/21 20:38 Last Admin: 08/11/21 20:40 Dose: 2,000 mls/hr Documented by: KATIUSKA Lorazepam (Lorazepam 2 Mg/Ml Inj) 0.5 mg IV NOW ONE Stop: 08/11/21 20:10 Last Admin: 08/11/21 20:40 Dose: 0.5 mg Documented by: KATIUSKA Ondansetron HCl (Ondansetron 4 Mg/2 Ml Inj) 4 mg IV NOW ONE Stop: 08/11/21 19:12 Last Admin: 08/11/21 19:54 Dose: 4 mg Documented by: KATIUSKA Ondansetron HCl (Ondansetron 4 Mg/2 Ml Inj) 4 mg IV NOW ONE Stop: 08/11/21 20:10 Last Admin: 08/11/21 21:06 Dose: Not Given Documented by: KATIUSKA Vital Signs Vital signs: Vital Signs - 8 hr 08/11/21 19:05 08/11/21 20:52 08/11/21 21:00 Temperature 98.7 F Pulse Rate 101 H 86 81 Respiratory Rate 16 Blood Pressure 119/73 101/69 109/71 Pulse Oximetry 96 99 95 08/11/21 21:30 Temperature Pulse Rate 77 Respiratory Rate Blood Pressure 108/56 L Pulse Oximetry 96 MDM - Nausea/Vomiting/Diarrhea Lab Data Result diagrams: 08/11/21 20:50 08/11/21 20:50 Labs: Lab Results 08/11/21 08/11/21 08/11/21 Range/Units 20:00 20:50 20:50 WBC 9.9 (4.5-11.0) X10^3/uL RBC 4.35 (4.0-5.2) X10^6/uL Hgb 14.0 (12.0-16.0) g/dL Hct 41.2 (36-46) % MCV 94.7 (80-100) fL MCH 32.2 (26-34) PG MCHC 34.0 (30-36) % RDW 13.4 (11.6-14.8) % Plt Count 267 (150-400) X10^3/uL Neut % (Auto) 77.3 H (50-75) % Lymph % (Auto) 15.1 L (25-40) % [place] % (Auto) 6.9 (3-14) % Eos % (Auto) 0.3 L (2-4) % Baso % (Auto) 0.4 (0-2) % Neut # (Auto) 7700 H (9844-7060) /uL Lymph # (Auto) 1500 (8866-8339) /uL [place] # (Auto) 700 (0-900) /uL Eos # (Auto) 0 (0-450) /uL Baso # (Auto) 0 (0-100) /uL Sodium 137 (137-145) mmol/L Potassium 3.5 (3.4-5.1) mmol/L Chloride 90 L (98-107) mmol/L Carbon Dioxide 34 H (22-32) mmol/L BUN 17 (7-17) mg/dL Creatinine 0.99 (0.52-1.04) mg/dL Estimated GFR > 60.0 (>60) mL/min BUN/Creatinine Ratio 17.2 (6-22) Glucose 108 H (70-100) mg/dL Calcium 10.1 (8.4-10.2) mg/dL Total Bilirubin 0.8 (0.2-1.3) mg/dL AST 24 (14-36) IU/L ALT 15 (<35) IU/L Alkaline Phosphatase 75 (38-126) U/L Total Protein 8.9 H (6.3-8.2) g/dL Albumin 5.1 H (3.5-5.0) g/dL Globulin 3.8 (1.7-4.1) g/dL Albumin/Globulin Ratio 1.3 (1.0-2.8) SARS-CoV-2 (PCR) Negative (Negative) MDM Narrative Medical decision making narrative: 45-year-old woman with significant improvement after L of fluid, half a mg of Ativan, 5 mg of Haldol, 25 mg of Benadryl and Zofran. Once her 2 L is complete she will be safe for home discharge. Most likely diagnosis at this point is cannabinoid hyperemesis syndrome given the improvement with sitting in a hot bath tub, the continued use of marijuana and the normal blood work otherwise. No signs of sepsis or other infection. She will be safe for home discharge. Discharge Plan Departure Patient Disposition: Home Clinical Impression: Intractable vomiting with nausea Instructions: DI for Vomiting -- Adult Activity Restrictions/Additional Instructions: Thank you for coming in today I am sorry that your having another episode of intractable vomiting. If you have not tried Phenergan to help with the nausea, you may find that it is more helpful than Zofran. I am going to give you a prescription for both the pills and the suppositories if you are throwing up too much to keep a pill down. I wish you the best Prescriptions: New promethazine 25 mg tablet 25 mg PO TID PRN (Reason: nausea and vomiting) Qty: 20 RF: 0 promethazine 25 mg suppository 25 mg WI Q6H PRN (Reason: nausea and vomiting) Qty: 12 RF: 0 No Action diphenhydramine HCl [Benadryl Allergy] 25 MG tablet 25 mg PO Q6HP Qty: 0 RF: 0 coenzyme Q10 [Co Q-10] 100 MG capsule 100 mg PO DAILY Qty: 0 RF: 0 ondansetron 4 mg tablet,disintegrating 4 mg PO Q8H PRN (Reason: nausea and vomiting) Qty: 10 RF: 0 amitriptyline 25 mg tablet See Rx Instructions .ROUTE .COMPLEX RF: 0 lorazepam 0.5 mg tablet 0.5 mg PO Q4-6H PRN (Reason: Anxiety) RF: 0 simvastatin 5 mg tablet 5 mg PO SUSA RF: 0 promethazine [Phenadoz] 25 mg suppository 25 mg WI TID PRN (Reason: nausea/vomiting) RF: 0 ibuprofen 800 mg tablet 800 mg PO DAILY RF: 0 sumatriptan 20 mg/actuation spray,non-aerosol 0 mg INTRANASAL PRN PRN (Reason: Migraine Headache) RF: 0 sertraline 50 mg tablet 50 mg PO DAILY RF: 0 hydrocodone-acetaminophen 5 MG/325 MG tablet 1 tab PO Q6HP PRN (Reason: pain) RF: 0 potassium chloride 20 mEq tablet extended release 40 meq PO DAILY Qty: 2 RF: 0 ondansetron 8 mg tablet,disintegrating 8 mg PO TID PRN (Reason: Nausea) RF: 0 hydrocodone-acetaminophen 5-325 mg tablet 1 tab PO Q4-6H PRN (Reason: pain) Qty: 10 RF: 0 doxycycline hyclate 100 mg tablet 100 mg PO BID Qty: 20 RF: 0 Referrals: Joanna Storm MD [Primary Care Provider] -
[2021-08-11] MEDS: HALOPERIDOL 5 MG/ML VIAL IV (20:40)
[2021-08-11] MEDS: LORazepam 2 MG/ML INJ 0.5 MG IV (20:40)
[2021-08-11] MEDS: diphenhydrAMINE 50 MG/ML VIAL 25 MG IV (20:40)
[2021-08-11] MEDS: SODIUM CHLORIDE 0.9% 1,000 ML 2000 ML IV (20:40)
[2021-08-11 20:58] LABS: COVID19 -Nasal RAPID Negative (Negative)
--- NOTE | 2021-08-11 20:58 | PC.NURSE ---
Pt is here for discomfort after 2nd dose vaccine on Wednesday. Pt states it has exacerbated her cyclic vomiting syndrome. Pt has not vomited since arrival.
[2021-08-11 21:07] LABS: Add Manual Diff / Slide Review NO; Basophils Absolute Auto 0 /uL (0-100); Basophils Percent Auto 0.4 % (0-2); Eosinophils Absolute Auto 0 /uL (0-450); Eosinophils Percent Auto 0.3 % (2-4); Hematocrit 41.2 % (36-46); Lymphocytes Absolute Auto 1500 /uL (1100-4500); Lymphocytes Percent Auto 15.1 % (25-40); Mean Corpuscular Hemoglobin 32.2 PG (26-34); Mean Corpuscular Volume 94.7 fL (80-100); Monocytes Absolute Auto 700 /uL (0-900); Monocytes Percent Auto 6.9 % (3-14); Neutrophils Absolute Auto 7700 /uL (1500-7000); Neutrophils Percent Auto 77.3 % (50-75); Platelet Count 267 X10^3/uL (150-400); Red Blood Cell Count 4.35 X10^6/uL (4.0-5.2); Red Cell Distribution Width 13.4 % (11.6-14.8); White Blood Cell Count 9.9 X10^3/uL (4.5-11.0)
[2021-08-11 21:11] LABS: Alanine Aminotransferase 15 IU/L (<35); Albumin 5.1 g/dL (3.5-5.0); Albumin Globulin Ratio 1.3 (1.0-2.8); Alkaline Phosphatase 75 U/L (38-126); Aspartate Aminotransferase 24 IU/L (14-36); BUN Creatinine Ratio 17.2 (6-22); Bilirubin Total 0.8 mg/dL (0.2-1.3); Blood Urea Nitrogen 17 mg/dL (7-17); Calcium 10.1 mg/dL (8.4-10.2); Carbon Dioxide 34 mmol/L (22-32); Chloride 90 mmol/L (98-107); Estimated Glomerular Filt Rate > 60.0 mL/min (>60); Globulin 3.8 g/dL (1.7-4.1); Glucose 108 mg/dL (70-100); HEMOLYSIS < 15 (0-50); Potassium 3.5 mmol/L (3.4-5.1); Sodium 137 mmol/L (137-145); Total Protein 8.9 g/dL (6.3-8.2)
[2021-08-12] VITALS: BP 96/58; PULSE 63; O2SAT 96
== END 2021-08-12 00:33 | disposition home or self-care (01) ==
PROVIDERS: Emergency Provider Emergency Medicine; Family Provider Internal Medicine; PCP Internal Medicine
DX: R11.2 Nausea with vomiting, unspecified (principal); F12.90 Cannabis use, unspecified, uncomplicated; Z20.822 Contact with and (suspected) exposure to COVID-19
CPT/HCPCS: 80053; 85025; 87635; 93005; 93010; 96361; 96374; 96375; 99284; C9803; J1200; J1630; J2060; J2405

== ENCOUNTER 2021-09-13 18:57 | Emergency (ER) | payer OTHER, SELFPAY ==
[2021-09-13 19:09] VITALS: BP 175/98; PULSE 88; RESP 22; TEMP 36.2; O2SAT 100; BMI 19.9
[2021-09-13 22:22] LABS: Add Manual Diff / Slide Review NO; Basophils Absolute Auto 0 /uL (0-100); Basophils Percent Auto 0.3 % (0-2); Eosinophils Absolute Auto 0 /uL (0-450); Eosinophils Percent Auto 0.2 % (2-4); Hematocrit 44.5 % (36-46); Hemoglobin 14.7 g/dL (12.0-16.0); Lymphocytes Absolute Auto 1200 /uL (1100-4500); Mean Corpuscular HGB Conc 32.9 % (30-36); Mean Corpuscular Hemoglobin 30.9 PG (26-34); Mean Corpuscular Volume 93.7 fL (80-100); Monocytes Absolute Auto 300 /uL (0-900); Monocytes Percent Auto 2.6 % (3-14); Neutrophils Absolute Auto 9600 /uL (1500-7000); Neutrophils Percent Auto 85.9 % (50-75); Platelet Count 286 X10^3/uL (150-400); Red Blood Cell Count 4.75 X10^6/uL (4.0-5.2); Red Cell Distribution Width 13.4 % (11.6-14.8); White Blood Cell Count 11.2 X10^3/uL (4.5-11.0)
[2021-09-13] MEDS: HALOPERIDOL 5 MG/ML VIAL IV (22:33)
[2021-09-13] MEDS: SODIUM CHLORIDE 0.9% 1,000 ML 1000 ML IV (22:33)
[2021-09-13 22:34] LABS: Alanine Aminotransferase 17 IU/L (<35); Albumin 5.4 g/dL (3.5-5.0); Albumin Globulin Ratio 1.3 (1.0-2.8); Alkaline Phosphatase 87 U/L (38-126); Aspartate Aminotransferase 25 IU/L (14-36); BUN Creatinine Ratio 14.7 (6-22); Blood Urea Nitrogen 10 mg/dL (7-17); Calcium 10.9 mg/dL (8.4-10.2); Carbon Dioxide 30 mmol/L (22-32); Chloride 97 mmol/L (98-107); Estimated Glomerular Filt Rate > 60.0 mL/min (>60); Globulin 4.1 g/dL (1.7-4.1); Glucose 150 mg/dL (70-100); HEMOLYSIS < 15 (0-50); Potassium 3.4 mmol/L (3.4-5.1); Sodium 141 mmol/L (137-145); Total Protein 9.5 g/dL (6.3-8.2)
[2021-09-13] MEDS: ONDANSETRON 4 MG/2 ML INJ IV (22:34)
[2021-09-13 23:10] VITALS: BP 162/83; PULSE 70; RESP 20
[2021-09-13 23:11] VITALS: PULSE 73; O2SAT 99
[2021-09-14] MEDS: LORazepam 2 MG/ML INJ 1 MG IV (00:30)
[2021-09-14 00:32] VITALS: PULSE 88; O2SAT 99
[2021-09-14 00:35] VITALS: PULSE 68; RESP 17; O2SAT 98
[2021-09-14 01:22] VITALS: PULSE 83
--- NOTE | 2021-09-14 02:29 | ED.NAVMDI ---
HPI - Nausea/Vomiting/Diarrhea General Chief complaint: Nausea/Vomiting/Diarrhea Stated complaint: vomiting syndome, Time Seen by Provider: 09/13/21 21:46 Source: patient Mode of arrival: Ambulatory Limitations: no limitations History of Present Illness HPI Narrative: ?45-year-old female daily smoker with history of cyclic vomiting presents with a significant other and a chief complaint generalized abdominal pain and frequent nausea and vomiting over the past week or 2. She states she has been under significant stress which seems to be her trigger. She has had no fever or chills. She has tried her home medications without much relief. She denies any obvious provocation or palliation of her pain, states it is crampy and aching in nature, denies any radiation. She has become fatigued, tearful and upset. She denies recent antibiotics, travel or exposure to bad food Related Data Home Medications Medication Instructions Recorded Confirmed coenzyme Q10 100 mg capsule (Co 100 mg PO DAILY #0 07/27/17 08/11/19 Q-10) diphenhydramine HCl 25 mg tablet 25 mg PO Q6HP #0 07/27/17 08/11/19 (Benadryl Allergy) hydrocodone 5 mg-acetaminophen 325 1 tab PO Q6HP PRN 08/11/19 08/11/19 mg tablet ibuprofen 800 mg tablet 800 mg PO DAILY 08/11/19 08/11/19 promethazine 25 mg rectal 25 mg [place] TID PRN 08/11/19 08/11/19 suppository (Phenadoz) sertraline 50 mg tablet 50 mg PO DAILY 08/11/19 12/29/19 sumatriptan 20 mg/actuation nasal 0 mg INTRANASAL PRN PRN 08/11/19 11/07/19 spray amitriptyline 25 mg tablet See Rx Instructions .ROUTE .COMPLEX 11/07/19 12/29/19 lorazepam 0.5 mg tablet 0.5 mg PO Q4-6H PRN 11/07/19 11/07/19 simvastatin 5 mg tablet 5 mg PO SUSA 11/07/19 12/29/19 ondansetron 8 mg disintegrating 8 mg PO TID PRN 12/29/19 12/29/19 tablet Previous Rx's Medication Instructions Recorded potassium chloride 20 mEq 40 meq PO DAILY #2 tab 08/11/19 tablet,extended release ondansetron 4 mg disintegrating 4 mg PO Q8H PRN #10 tab 11/07/19 tablet doxycycline hyclate 100 mg tablet 100 mg PO BID #20 tab 05/16/20 hydrocodone 5 mg-acetaminophen 325 1 tab PO Q4-6H PRN #10 tab 05/16/20 mg tablet promethazine 25 mg rectal 25 mg AZ Q6H PRN #12 ea 08/11/21 suppository promethazine 25 mg tablet 25 mg PO TID PRN #20 tab 08/11/21 sumatriptan 5 mg/actuation nasal 5 mg INTRANASAL Q2-4H PRN #1 ea 09/14/21 spray Allergies Allergy/AdvReac Type Severity Reaction Status Date / Time promethazine [PROMETHAZINE] Allergy Mild ERYTHEMA Verified 09/13/21 19:26 TO IV SITE PT STATES ABLE TO TAKE [place] latex [LATEX] Allergy Unknown Verified 09/13/21 19:26 metoclopramide AdvReac Unknown DYSTONIA Verified 09/13/21 19:26 [METOCLOPRAMIDE] Review of Systems Review of Systems Narrative: GENERAL: Denies chills, fatigue, malaise, fever, sweats. HEENT: Denies sinus pain, ear pain, sore throat, difficulty swallowing, dizziness. RESPIRATORY: Denies dyspnea, cough, wheezing, hemoptysis, sputum. CARDIOVASCULAR: Denies chest pain, palpitations, orthopnea, edema, GASTROINTESTINAL: See HPI : Denies dysuria, frequency, incontinence, hematuria, urinary retention. MUSCULOSKELETAL: denies weakness, joint pain, or bony pain SKIN: Denies rash, skin lesions, or other NEUROLOGIC: Denies weakness, headache, numbness, change in speech, confusion, seizures, incoordination. PSYCHIATRIC: No concerning psychosocial issues. 12 point review of systems is negative except for those stated above Patient History Medical History Chronic abdominal pain Cyclic vomiting syndrome Marijuana use, continuous Pancreatitis Surgical History No pertinent past surgical history Social History Smoking Status: Current every day smoker Smoking Status: Current every day smoker tobacco type: vaping alcohol intake frequency: 0-2 drinks per day Alcohol type: wine Substance Use Type: marijuana Exam Narrative Exam Narrative: GENERAL: [45] year old patient appears stated age. Well-developed patient, in obvious distress, tearful, holding emesis bag HEAD: Atraumatic. Normocephalic. EYES: Pupils equal round and reactive. Extraocular motions intact. No scleral icterus. No injection or drainage. ENT: Nose without bleeding, purulent drainage. Throat without erythema, tonsillar hypertrophy or exudate. Airway patent. NECK: Trachea midline. Non tender CARDIOVASCULAR: Regular rate and rhythm without murmurs, gallops, or rubs. RESPIRATORY: Clear to auscultation. Breath sounds equal bilaterally. No wheezes, rales, or rhonchi. GASTROINTESTINAL: Abdomen soft, non-tender, nondistended. EXTREMITIES: No edema or joint tenderness. BACK: Nontender without deformity or crepitance. No flank tenderness. NEURO: AOx3. SKIN: No rash or erythema of visible areas Initial Vital Signs Initial Vital Signs: Vital Signs Temperature 97.2 F L 09/13/21 19:09 Pulse Rate 88 09/13/21 19:09 Respiratory Rate 22 09/13/21 19:09 Blood Pressure 175/98 H 09/13/21 19:09 Pulse Oximetry 100 09/13/21 19:09 Course Orders Ordered: ED Orders 09/13/21 22:02 Stool Culture Stat 09/13/21 22:13 Complete Blood Count AUTO DIFF Stat Comprehensive Metabolic Panel Stat Discontinued Medications Haloperidol (Haloperidol 5 Mg/Ml Vial) 5 mg IV NOW ONE Stop: 09/13/21 22:03 Last Admin: 09/13/21 22:33 Dose: 5 mg Documented by: STAS Sodium Chloride (Normal Saline 0.9%) 1,000 mls @ 1,000 mls/hr IV BOLUS ONE Stop: 09/13/21 23:01 Last Infusion: 09/14/21 01:49 Dose: 0 mls/hr Documented by: Admin: 09/13/21 22:33 Dose: 1,000 mls/hr Documented by: STAS Lorazepam (Lorazepam 2 Mg/Ml Inj) 1 mg IV NOW ONE Stop: 09/14/21 00:27 Last Admin: 09/14/21 00:30 Dose: 1 mg Documented by: STAS Ondansetron HCl (Ondansetron 4 Mg/2 Ml Inj) 4 mg IV NOW ONE Stop: 09/13/21 22:03 Last Admin: 09/13/21 22:34 Dose: 4 mg Documented by: STAS Reevaluation(s) Reevaluation #1: Patient has been resting for hours, has not vomited since she has been here. She is sleepy due to the medications and for this reason I discussed with her and significant other that I am not comfortable giving any narcotic pain medications. Vital Signs Vital signs: Vital Signs - 8 hr 09/13/21 19:09 09/13/21 23:10 09/13/21 23:11 Temperature 97.2 F L Pulse Rate 88 70 73 Respiratory Rate 22 20 Blood Pressure 175/98 H 162/83 H Pulse Oximetry 100 99 09/14/21 00:32 09/14/21 00:35 09/14/21 01:22 Temperature Pulse Rate 88 68 83 Respiratory Rate 17 Blood Pressure Pulse Oximetry 99 98 MDM - Nausea/Vomiting/Diarrhea Lab Data Result diagrams: 09/13/21 22:13 09/13/21 22:13 Labs: Lab Results 09/13/21 09/13/21 Range/Units 22:13 22:13 WBC 11.2 H (4.5-11.0) X10^3/uL RBC 4.75 (4.0-5.2) X10^6/uL Hgb 14.7 (12.0-16.0) g/dL Hct 44.5 (36-46) % MCV 93.7 (80-100) fL MCH 30.9 (26-34) PG MCHC 32.9 (30-36) % RDW 13.4 (11.6-14.8) % Plt Count 286 (150-400) X10^3/uL Neut % (Auto) 85.9 H (50-75) % Lymph % (Auto) 11.0 L (25-40) % [place] % (Auto) 2.6 L (3-14) % Eos % (Auto) 0.2 L (2-4) % Baso % (Auto) 0.3 (0-2) % Neut # (Auto) 9600 H (5101-6148) /uL Lymph # (Auto) 1200 (8691-3757) /uL [place] # (Auto) 300 (0-900) /uL Eos # (Auto) 0 (0-450) /uL Baso # (Auto) 0 (0-100) /uL Sodium 141 (137-145) mmol/L Potassium 3.4 (3.4-5.1) mmol/L Chloride 97 L (98-107) mmol/L Carbon Dioxide 30 (22-32) mmol/L BUN 10 (7-17) mg/dL Creatinine 0.68 (0.52-1.04) mg/dL Estimated GFR > 60.0 (>60) mL/min BUN/Creatinine Ratio 14.7 (6-22) Glucose 150 H (70-100) mg/dL Calcium 10.9 H (8.4-10.2) mg/dL Total Bilirubin 1.0 (0.2-1.3) mg/dL AST 25 (14-36) IU/L ALT 17 (<35) IU/L Alkaline Phosphatase 87 (38-126) U/L Total Protein 9.5 H (6.3-8.2) g/dL Albumin 5.4 H (3.5-5.0) g/dL Globulin 4.1 (1.7-4.1) g/dL Albumin/Globulin Ratio 1.3 (1.0-2.8) Point of Care Testing Glucose POC 132 MDM Narrative Medical decision making narrative: Patient presents under similar circumstances consistent with prior episodes of cyclic vomiting and abdominal migraine. She has been under significant stress at home which tends to be her trigger. She has been having episodes of cyclic vomiting in the morning and gradually improving over the course of the day for many weeks. Other diagnoses considered, but thought unlikely given her response to medications and reassuring labs. We did discuss advanced imaging but elect to hold off this time around. She hasn't vomited in hours, pain is much better and she is ready for DC. She's been given extensive return precautions and questions answered to their apparent satisfaction. Previously she had been using sumatriptan intranasal given the theory that these are likely abdominal migraines, significant other reports it made a huge difference hence my decision to refill the prescription Discharge Plan Departure Patient Disposition: Home Clinical Impression: Cyclic vomiting syndrome Nausea and vomiting Qualifiers: Vomiting type: unspecified Vomiting Intractability: non-intractable Qualified Code(s): R11.2 - Nausea with vomiting, unspecified Abdominal migraine Qualifiers: Intractability: not intractable Qualified Code(s): G43.D0 - Abdominal migraine, not intractable Instructions: DI for Abdominal Pain-Adult, DI for Vomiting -- Adult Activity Restrictions/Additional Instructions: *You have been diagnosed with [cyclic vomiting syndrome and abdominal migraine. Your labs are very reassuring as is response to medications. We discussed the possibility of advanced imaging but elect to hold off given how similar this presentation is to prior and your response to therapies. *What to do: *Please continue to take your regular medications as directed. [ ] New medication prescriptions sent to your pharmacy: [ ] [ x] New medication written as a paper prescription [ ] No new medications given *Please follow up with your primary care provider in 2-3 days, call for an appointment. Let them know you were seen in the Emergency Department and that we ask that you be seen in follow up. We will electronically transmit a record of today's note if your PCP is in our system *If you do not have a primary care provider please contact the [facility] Resource line at [phone]. They will ask some questions about your medical history and help get you set up with a doctor in the community. *Return to Emergency Department if you should have any new, worsening or concerning symptoms, such as [fever greater than 101 F, shaking chills, worsening pain, persistent vomiting or other bothersome symptoms] Prescriptions: New sumatriptan 5 mg/actuation spray,non-aerosol 5 mg intranasal Q2-4H PRN (Reason: migraine headache) Qty: 1 RF: 0 No Action diphenhydramine HCl [Benadryl Allergy] 25 MG tablet 25 mg PO Q6HP Qty: 0 RF: 0 coenzyme Q10 [Co Q-10] 100 MG capsule 100 mg PO DAILY Qty: 0 RF: 0 ondansetron 4 mg tablet,disintegrating 4 mg PO Q8H PRN (Reason: nausea and vomiting) Qty: 10 RF: 0 amitriptyline 25 mg tablet See Rx Instructions .ROUTE .COMPLEX RF: 0 lorazepam 0.5 mg tablet 0.5 mg PO Q4-6H PRN (Reason: Anxiety) RF: 0 simvastatin 5 mg tablet 5 mg PO SUSA RF: 0 promethazine 25 mg tablet 25 mg PO TID PRN (Reason: nausea and vomiting) Qty: 20 RF: 0 promethazine 25 mg suppository 25 mg AZ Q6H PRN (Reason: nausea and vomiting) Qty: 12 RF: 0 promethazine [Phenadoz] 25 mg suppository 25 mg [place] TID PRN (Reason: nausea/vomiting) RF: 0 ibuprofen 800 mg tablet 800 mg PO DAILY RF: 0 sumatriptan 20 mg/actuation spray,non-aerosol 0 mg INTRANASAL PRN PRN (Reason: Migraine Headache) RF: 0 sertraline 50 mg tablet 50 mg PO DAILY RF: 0 hydrocodone-acetaminophen 5 MG/325 MG tablet 1 tab PO Q6HP PRN (Reason: pain) RF: 0 potassium chloride 20 mEq tablet extended release 40 meq PO DAILY Qty: 2 RF: 0 ondansetron 8 mg tablet,disintegrating 8 mg PO TID PRN (Reason: Nausea) RF: 0 hydrocodone-acetaminophen 5-325 mg tablet 1 tab PO Q4-6H PRN (Reason: pain) Qty: 10 RF: 0 doxycycline hyclate 100 mg tablet 100 mg PO BID Qty: 20 RF: 0 Referrals: Joanna Storm MD [Primary Care Provider] -
[2021-09-14 03:07] VITALS: BP 177/106; PULSE 80; RESP 16; TEMP 36.7; O2SAT 98
== END 2021-09-14 03:08 | disposition home or self-care (01) ==
PROVIDERS: Emergency Provider Emergency Medicine; Family Provider Internal Medicine; PCP Internal Medicine
DX: R11.15 Cyclical vomiting syndrome unrelated to migraine (principal); G43.D0 Abdominal migraine, not intractable; R11.2 Nausea with vomiting, unspecified
CPT/HCPCS: 36415; 80053; 82962; 85025; 96361; 96374; 96375; 99284; J1630; J2060; J2405

== ENCOUNTER → 2021-12-06 16:23 | Outpatient (CLI) | payer OTHER, SELFPAY | PROVIDERS: Family Provider Internal Medicine; PCP Internal Medicine; Visit Provider Nurse Practitioner Family | DX: L02.91 Cutaneous abscess, unspecified (principal) | CPT/HCPCS: 87070; 87075; 87077; 87147; 87186; 87205 ==

== ENCOUNTER 2022-02-12 15:27 | Observation (INO) | payer OTHER, SELFPAY ==
[2022-02-12] VITALS (19 sets, daily range): BP systolic 122–195; BP diastolic 60–136; PULSE 74–95; RESP 16–34; TEMP 36.4–36.6; O2SAT 94–100; BMI 19.5
--- NOTE | 2022-02-12 17:04 | ED.NAVMDI ---
HPI - Nausea/Vomiting/Diarrhea General Chief complaint: Nausea/Vomiting/Diarrhea Stated complaint: Vomiting Time Seen by Provider: 02/12/22 16:29 Source: patient Mode of arrival: Ambulatory Related Data Home Medications Medication Instructions Recorded Confirmed ondansetron 8 mg disintegrating 8 mg PO TID PRN 12/29/19 12/06/21 tablet Previous Rx's Medication Instructions Recorded ondansetron 4 mg disintegrating 4 mg PO Q8H PRN #10 tab 11/07/19 tablet sumatriptan 5 mg/actuation nasal 5 mg INTRANASAL Q2-4H PRN #1 ea 09/14/21 spray Allergies Allergy/AdvReac Type Severity Reaction Status Date / Time promethazine [PROMETHAZINE] Allergy Mild ERYTHEMA Verified 12/06/21 15:49 TO IV SITE PT STATES ABLE TO TAKE IN latex [LATEX] Allergy Unknown Verified 02/12/22 15:46 metoclopramide AdvReac Unknown DYSTONIA Verified 02/12/22 15:46 [METOCLOPRAMIDE] Patient History Medical History Chronic abdominal pain Cyclic vomiting syndrome Marijuana use, continuous Pancreatitis Surgical History No pertinent past surgical history Social History Smoking Status: Current every day smoker Smoking Status: Current every day smoker tobacco type: vaping alcohol intake frequency: 0-2 drinks per day Alcohol type: wine Substance Use Type: marijuana Exam Initial Vital Signs Initial Vital Signs: Vital Signs Temperature 97.5 F L 02/12/22 15:38 Pulse Rate 95 H 02/12/22 15:38 Respiratory Rate 18 02/12/22 15:38 Blood Pressure 180/106 H 02/12/22 15:38 Pulse Oximetry 100 02/12/22 15:38 Course Orders Ordered: ED Orders 02/12/22 16:45 Complete Blood Count AUTO DIFF Stat Comprehensive Metabolic Panel Stat Lipase Stat 02/12/22 17:48 CT abdomen pelvis wo con Stat UA Complete [Urinalysis and Microscopic] Stat Lorazepam (Lorazepam 2 Mg/Ml Inj) 0.5 mg IV Q6HR PRN PRN Reason: Anxiety Discontinued Medications Diphenhydramine HCl (Diphenhydramine 50 Mg/Ml Vial) 25 mg IV NOW ONE Stop: 02/12/22 17:46 Last Admin: 02/12/22 18:11 Dose: Not Given Documented by: SADIQOTEM Haloperidol (Haloperidol 5 Mg/Ml Vial) 5 mg IV NOW ONE Stop: 02/12/22 17:06 Last Admin: 02/12/22 17:15 Dose: 5 mg Documented by: ATAYLOR Sodium Chloride (Normal Saline 0.9%) 1,000 mls @ 1,000 mls/hr IV BOLUS ONE Stop: 02/12/22 18:04 Last Admin: 02/12/22 17:14 Dose: 1,000 mls/hr Documented by: ATAYLOR Ondansetron HCl (Ondansetron 4 Mg/2 Ml Inj) 4 mg IV NOW ONE Stop: 02/12/22 17:06 Last Admin: 02/12/22 17:14 Dose: 4 mg Documented by: ATAYLOR Vital Signs Vital signs: Vital Signs - 8 hr 02/12/22 15:38 02/12/22 18:02 Temperature 97.5 F L Pulse Rate 95 H 84 Respiratory Rate 18 20 Blood Pressure 180/106 H 195/94 H Pulse Oximetry 100 99 MDM - Nausea/Vomiting/Diarrhea Lab Data Result diagrams: 02/12/22 16:45 02/12/22 16:45 Labs: Lab Results 02/12/22 02/12/22 02/12/22 Range/Units 16:45 16:45 16:45 WBC 5.2 (4.5-11.0) X10^3/uL RBC 4.66 (4.0-5.2) X10^6/uL Hgb 14.5 (12.0-16.0) g/dL Hct 43.6 (36-46) % MCV 93.5 (80-100) fL MCH 31.2 (26-34) PG MCHC 33.3 (30-36) % RDW 13.1 (11.6-14.8) % Plt Count 260 (150-400) X10^3/uL Neut % (Auto) 83.4 H (50-75) % Lymph % (Auto) 11.9 L (25-40) % [place] % (Auto) 4.4 (3-14) % Eos % (Auto) 0.0 L (2-4) % Baso % (Auto) 0.3 (0-2) % Neut # (Auto) 4400 (0736-6488) /uL Lymph # (Auto) 600 L (8648-2219) /uL [place] # (Auto) 200 (0-900) /uL Eos # (Auto) 0 (0-450) /uL Baso # (Auto) 0 (0-100) /uL Sodium 139 (137-145) mmol/L Potassium 3.1 L (3.4-5.1) mmol/L Chloride 95 L (98-107) mmol/L Carbon Dioxide 31 (22-32) mmol/L BUN 16 (7-17) mg/dL Creatinine 0.77 (0.52-1.04) mg/dL Estimated GFR > 60.0 (>60) mL/min BUN/Creatinine Ratio 20.8 (6-22) Glucose 173 H (70-100) mg/dL Calcium 10.3 H (8.4-10.2) mg/dL Total Bilirubin 1.0 (0.2-1.3) mg/dL AST 29 (14-36) IU/L ALT 18 (<35) IU/L Alkaline Phosphatase 102 (38-126) U/L Total Protein 9.6 H (6.3-8.2) g/dL Albumin 5.4 H (3.5-5.0) g/dL Globulin 4.2 H (1.7-4.1) g/dL Albumin/Globulin Ratio 1.3 (1.0-2.8) Lipase 116 (23-300) U/L Discharge Plan Departure Prescriptions: No Action ondansetron 4 mg tablet,disintegrating 4 mg PO Q8H PRN (Reason: nausea and vomiting) Qty: 10 0RF ondansetron 8 mg tablet,disintegrating 8 mg PO TID PRN (Reason: Nausea) 0RF Label Comments: dissolve 1 tablet by mouth up to three times a day sumatriptan 5 mg/actuation spray,non-aerosol 5 mg intranasal Q2-4H PRN (Reason: migraine headache) Qty: 1 0RF Rx Instructions: into each nostril once; if abdominal migraine remains, may repeat total dose once after at least 2 hours Referrals: Joanna Storm MD [Primary Care Provider] -
[2022-02-12 17:13] LABS: Add Manual Diff / Slide Review NO; Basophils Absolute Auto 0 /uL (0-100); Basophils Percent Auto 0.3 % (0-2); Eosinophils Absolute Auto 0 /uL (0-450); Hematocrit 43.6 % (36-46); Hemoglobin 14.5 g/dL (12.0-16.0); Lymphocytes Absolute Auto 600 /uL (1100-4500); Lymphocytes Percent Auto 11.9 % (25-40); Mean Corpuscular HGB Conc 33.3 % (30-36); Mean Corpuscular Hemoglobin 31.2 PG (26-34); Mean Corpuscular Volume 93.5 fL (80-100); Monocytes Absolute Auto 200 /uL (0-900); Monocytes Percent Auto 4.4 % (3-14); Neutrophils Absolute Auto 4400 /uL (1500-7000); Neutrophils Percent Auto 83.4 % (50-75); Platelet Count 260 X10^3/uL (150-400); Red Blood Cell Count 4.66 X10^6/uL (4.0-5.2); Red Cell Distribution Width 13.1 % (11.6-14.8); White Blood Cell Count 5.2 X10^3/uL (4.5-11.0)
[2022-02-12] MEDS: ONDANSETRON 4 MG/2 ML INJ IV (17:14)
[2022-02-12] MEDS: SODIUM CHLORIDE 0.9% 1,000 ML 1000 ML IV ×2 (17:14→19:05)
[2022-02-12] MEDS: HALOPERIDOL 5 MG/ML VIAL IV (17:15)
[2022-02-12 17:17] LABS: Alanine Aminotransferase 18 IU/L (<35); Albumin 5.4 g/dL (3.5-5.0); Alkaline Phosphatase 102 U/L (38-126); Aspartate Aminotransferase 29 IU/L (14-36); BUN Creatinine Ratio 20.8 (6-22); Blood Urea Nitrogen 16 mg/dL (7-17); Calcium 10.3 mg/dL (8.4-10.2); Carbon Dioxide 31 mmol/L (22-32); Chloride 95 mmol/L (98-107); Estimated Glomerular Filt Rate > 60.0 mL/min (>60); Glucose 173 mg/dL (70-100); HEMOLYSIS < 15 (0-50); Potassium 3.1 mmol/L (3.4-5.1); Sodium 139 mmol/L (137-145)
[2022-02-12 17:25] LABS: Albumin Globulin Ratio 1.3 (1.0-2.8); Globulin 4.2 g/dL (1.7-4.1)
[2022-02-12 17:26] LABS: Total Protein 9.6 g/dL (6.3-8.2)
--- NOTE | 2022-02-12 17:48 | DI.CT.S_ITS ---
PROCEDURE: CT ABDOMEN PELVIS WO CON INDICATIONS: abdominal pain TECHNIQUE: Noncontrast 5 mm thick sections acquired from the diaphragms to the symphysis. 5 mm coronal and sagittal reformats were then performed. For radiation dose reduction, the following was used: automated exposure control, adjustment of mA and/or kV according to patient size. COMPARISON: [facility], CT, ABDOMEN/PELVIS WITH CONTRAST, 11/26/2014, 1:04. FINDINGS: Image quality: Excellent. ABDOMEN: Lung bases: Lung bases are clear. Heart size is normal. Solid organs: Liver is normal in size. Gallbladder is surgically absent . Pancreas is normal in contours. Spleen is normal in size. No adrenal nodules. Kidneys are normal in size, without hydronephrosis or nephrolithiasis. Peritoneum and bowel: Small hiatal hernia. Mild distal esophageal wall circumferential thickening. Unenhanced bowel loops demonstrate normal wall thickness and caliber. No free fluid or air. Nodes and vessels: No retroperitoneal or mesenteric adenopathy by size criteria. Aorta and inferior vena cava are normal in caliber. There is a splenic artery aneurysm, which is not appreciably changed in size compared to the previous study. It measures approximately 2.4 x 1.8 cm. Miscellaneous: No ventral hernias. PELVIS: Genitourinary: Bladder wall thickness is normal. Miscellaneous: No inguinal hernias or adenopathy. IUD present in the uterus. Bones: No suspicious bony lesions. No vertebral body compression fractures. IMPRESSION: 1. There is a small hiatal hernia. 2. There is diffuse distal esophageal wall thickening, possibly representing esophagitis. 3. Unchanged size of splenic artery aneurysm. 4. IUD. 5. No evidence of acute abdominal process. Dictated by: Kade Mackey M.D. on 02/12/2022 at 18:21 Approved by: Kade Mackey M.D. on 02/12/2022 at 18:25
--- NOTE | 2022-02-12 17:49 | ED_ITS ---
HPI - Nausea/Vomiting/Diarrhea <Willian Lutz PA-C - Last Filed: 02/12/22 19:46> General Chief complaint: Nausea/Vomiting/Diarrhea Stated complaint: Vomiting Time Seen by Provider: 02/12/22 16:29 Source: patient Mode of arrival: Ambulatory History of Present Illness HPI Narrative: Patient is a 38-year-old female presents to the ED complaining of abdominal pain generalized with nausea and vomiting that started yesterday. She has a history of severe cyclical vomiting and has had frequent episodes to the ED as a result. Treatment in the past that seems to have helped her nausea is Benadryl Ativan and Haldol as needed she reports that her abdominal pain is generalized and severe with nothing seems to make it better light palpation seems to increase the pain. No reported fever cough sore throat congestion. Related Data Home Medications Medication Instructions Recorded Confirmed ondansetron 8 mg disintegrating 8 mg PO TID PRN 12/29/19 12/06/21 tablet Previous Rx's Medication Instructions Recorded ondansetron 4 mg disintegrating 4 mg PO Q8H PRN #10 tab 11/07/19 tablet sumatriptan 5 mg/actuation nasal 5 mg INTRANASAL Q2-4H PRN #1 ea 09/14/21 spray Allergies Allergy/AdvReac Type Severity Reaction Status Date / Time promethazine [PROMETHAZINE] Allergy Mild ERYTHEMA Verified 12/06/21 15:49 TO IV SITE PT STATES ABLE TO TAKE AR latex [LATEX] Allergy Unknown Verified 02/12/22 15:46 metoclopramide AdvReac Unknown DYSTONIA Verified 02/12/22 15:46 [METOCLOPRAMIDE] Review of Systems <Willian Lutz PA-C - Last Filed: 02/12/22 19:46> Review of Systems ROS Unobtainable: All systems reviewed & are unremarkable except as noted in HPI and below Constitutional Constitutional: Denies chills, Denies fatigue, Denies fever(s), Denies frequent falls, Denies lethargy and Denies weakness Eyes Eyes: Denies change in vision, Denies eye discharge, Denies irritation and Denies loss of vision ENT Ears, Nose, Mouth, and Throat: Denies change in voice, Denies dizziness, Denies neck pain, Denies sore throat and Denies throat swelling Cardiovascular Cardiovascular: Denies chest pain, Denies irregular heart rhythm, Denies lighthe adedness, Denies palpitations, Denies dyspnea, Denies dyspnea on exertion and Denies orthopnea Respiratory Respiratory: Denies cough, Denies dyspnea, Denies dyspnea on exertion and Denies wheezing Gastrointestinal Gastrointestinal: Reports abdominal pain, Denies change in bowel habits, Denies diarrhea, Reports nausea and Reports vomiting Genitourinary Genitourinary: Denies hematuria, Denies flank pain, Denies urinary incontinence and Denies urinary urgency Musculoskeletal Musculoskeletal: Denies back pain, Denies muscle weakness, Denies neck pain, Denies numbness and Denies tingling Integumentary/Breasts Skin/Breast: Denies pruritus, Denies erythema, Denies rash and Denies wounds Neurologic Neurologic: Denies behavioral changes, Denies confusion, Denies dizziness, Denies frequent falls, Denies loss of vision, Denies numbness, Denies tingling and Denies weakness Psychiatric Psychiatric: Denies anxiety, Denies behavioral changes, Denies confusion, Denies depression, Denies homicidal ideation and Denies suicidal ideation Endocrine Endocrine: Denies fatigue, Denies flushing and Denies palpitations Hematologic/Lymphatic Hematologic/Lymphatic: Denies easy bruising Allergic/Immunologic Allergic/Immunologic: Denies urticaria, Denies throat swelling and Denies wheezing Patient History <Willian Lutz PA-C - Last Filed: 02/12/22 19:46> Medical History (Updated 02/13/22 @ 00:31 by PIPO Brownlee) Abscess Chronic abdominal pain Cyclic vomiting syndrome Family history of angioedema Marijuana use, continuous MRSA (methicillin resistant staph aureus) culture positive Pancreatitis Surgical History (Updated 02/13/22 @ 00:31 by PIPO Brownlee) Hx of appendectomy Hx of cholecystectomy Family History Father Hypertension Mother Diabetes mellitus Daughter Angio-edema Other Colon cancer Social History household members: spouse Smoking Status: Current every day smoker Smoking Status: Current every day smoker tobacco type: vaping alcohol intake frequency: 0-2 drinks per day Alcohol type: wine Substance Use Type: marijuana Exam <Willian Lutz PA-C - Last Filed: 02/12/22 19:46> Initial Vital Signs Initial Vital Signs: Vital Signs Temperature 97.5 F L 02/12/22 15:38 Pulse Rate 95 H 02/12/22 15:38 Respiratory Rate 18 02/12/22 15:38 Blood Pressure 180/106 H 02/12/22 15:38 Pulse Oximetry 100 02/12/22 15:38 Const General: cooperative, healthy appearing, comfortable and well developed Nutritional Appearance: average body habitus Orientation: Orientation [facility] Head: normal to inspection and normocephalic Ears: hearing grossly normal bilaterally and external ears normal Nose: external nose normal and nares normal Face and sinus: normal facial exam Eyes General: appearance normal, both eyes and all related structures Pupils: PERRL Resp Effort & Inspection: normal respiratory effort and able to speak in complete sentences Auscultation: clear to auscultation bilaterally Cardio Palpation: normal PMI Rate: regular rate Rhythm: regular rhythm GI Inspection: normal to inspection Palpation: soft and no hepatosplenomegaly Percussion: normal to percussion Auscultation: normal bowel sounds <Jacquelin Foster MD - Last Filed: 02/13/22 03:49> Initial Vital Signs Initial Vital Signs: Vital Signs Temperature 97.5 F L 02/12/22 15:38 Pulse Rate 95 H 02/12/22 15:38 Respiratory Rate 18 02/12/22 15:38 Blood Pressure 180/106 H 02/12/22 15:38 Pulse Oximetry 100 02/12/22 15:38 Course <Willian Lutz PA-C - Last Filed: 02/12/22 19:46> Orders Ordered: ED Orders 02/12/22 20:02 COVID19 -Nasal swab/Pre-Proc Stat 02/12/22 20:10 FFP [Fresh Frozen Plasma] Stat Type and Screen Stat 02/12/22 21:15 UA Complete [Urinalysis and Microscopic] Stat urine tox [Urine Drug Screen, Rapid] Stat Acetaminophen (Acetaminophen 325 Mg Tablet) 650 mg PO Q6HR PRN PRN Reason: Fever/Mild Pain (1-3) Enoxaparin Sodium (Enoxaparin 40 Mg/0.4 Ml Syringe) 40 mg SUBCUT DAILY [facility] Famotidine (Famotidine 20 Mg/2 Ml Vial) 20 mg IV NOW LINDA Last Admin: 02/12/22 20:12 Dose: 20 mg Documented by: ANKIT Haloperidol (Haloperidol 5 Mg/Ml Vial) 2 mg IV Q2HR PRN PRN Reason: Nausea And Vomiting Sodium Chloride (Normal Saline 0.9%) 1,000 mls @ 150 mls/hr IV CONT LINDA Last Infusion: 02/12/22 23:05 Dose: 0 mls/hr Documented by: Admin: 02/12/22 22:14 Dose: 150 mls/hr Documented by: ANKIT Lorazepam (Lorazepam 2 Mg/Ml Inj) 0.5 mg IV Q6HR PRN PRN Reason: Anxiety Naloxone HCl (Naloxone 0.4 Mg/Ml Vial) 0.2 mg IV Q2MIN PRN PRN Reason: Opiate Reversal Ondansetron HCl (Ondansetron 4 Mg/2 Ml Inj) 4 mg IV Q4HR PRN PRN Reason: Nausea And Vomiting Discontinued Medications Diphenhydramine HCl (Diphenhydramine 50 Mg/Ml Vial) 25 mg IV NOW ONE Stop: 02/12/22 17:46 Last Admin: 02/12/22 18:11 Dose: Not Given Documented by: CAMILLE Diphenhydramine HCl (Diphenhydramine 50 Mg/Ml Vial) 50 mg IV NOW ONE Stop: 02/12/22 19:57 Last Admin: 02/12/22 20:06 Dose: 50 mg Documented by: ANKIT Enoxaparin Sodium (Enoxaparin 40 Mg/0.4 Ml Syringe) 40 mg SUBCUT DAILY [facility] Haloperidol (Haloperidol 5 Mg/Ml Vial) 5 mg IV NOW ONE Stop: 02/12/22 17:06 Last Admin: 02/12/22 17:15 Dose: 5 mg Documented by: ANKIT Sodium Chloride (Normal Saline 0.9%) 1,000 mls @ 1,000 mls/hr IV BOLUS ONE Stop: 02/12/22 18:04 Last Infusion: 02/12/22 18:59 Dose: 0 mls/hr Documented by: Admin: 02/12/22 17:14 Dose: 1,000 mls/hr Documented by: ATAYLOR Sodium Chloride (Normal Saline 0.9%) 1,000 mls @ 1,000 mls/hr IV BOLUS ONE Stop: 02/12/22 19:48 Last Infusion: 02/12/22 20:39 Dose: 0 mls/hr Documented by: Admin: 02/12/22 19:05 Dose: 1,000 mls/hr Documented by: ATAYLOR POTASSIUM CHLORIDE IN WATER (Potassium Cl 10 Meq/100 Ml Megan) 10 meq in 100 mls @ 100 mls/hr IV Q1H LINDA Stop: 02/13/22 02:14 Last Infusion: 02/13/22 02:54 Dose: 0 mls/hr Documented by: CTR.[email or web address] Admin: 02/13/22 01:54 Dose: 100 mls/hr Documented by: CTR.RFUENT Infusion: 02/13/22 01:51 Dose: 100 mls/hr Documented by: CTR.RFUENT Admin: 02/13/22 00:51 Dose: 100 mls/hr Documented by: CTR.RFUENT Infusion: 02/13/22 00:35 Dose: 100 mls/hr Documented by: CTR.RFUENT Admin: 02/12/22 23:35 Dose: 100 mls/hr Documented by: CTR.RFUENT Infusion: 02/12/22 23:35 Dose: 0 mls/hr Documented by: CTR.[email or web address] Infusion: 02/12/22 23:05 Dose: 0 mls/hr Documented by: Admin: 02/12/22 22:14 Dose: 100 mls/hr Documented by: VINHOR Ondansetron HCl (Ondansetron 4 Mg/2 Ml Inj) 4 mg IV NOW ONE Stop: 02/12/22 17:06 Last Admin: 02/12/22 17:14 Dose: 4 mg Documented by: VINHOR Reevaluation(s) Reevaluation #1: I went in to see patient patient was sleeping. Nausea seems controlled however she is continuing to have ongoing generalized abdominal pain. In speaking with the family there is significant history of nausea vomiting in the past which she has had multiple workups by GI specialist in [place] and they have not been able to find a conclusive answer. I spoke to patient about being discharged home lisy clayton states that she has not does not feel comfortable being discharged home at this point will continue her IV fluids monitor vital signs and reassess. Vital Signs Vital signs: Vital Signs - 8 hr 02/12/22 20:00 02/12/22 20:01 02/12/22 20:05 Pulse Rate 86 79 74 Respiratory Rate 23 Blood Pressure 188/99 H 181/102 H Pulse Oximetry 97 97 99 02/12/22 20:10 02/12/22 20:20 02/12/22 20:30 Pulse Rate 85 84 82 Respiratory Rate 23 24 21 Blood Pressure 164/93 H 181/104 H 187/105 H Pulse Oximetry 98 98 99 02/12/22 20:40 02/12/22 20:50 02/12/22 21:00 Pulse Rate 88 90 89 Respiratory Rate 24 24 24 Blood Pressure 178/94 H 174/97 H Pulse Oximetry 98 98 97 02/12/22 21:02 02/12/22 21:30 02/12/22 21:45 Pulse Rate 88 90 95 H Respiratory Rate 21 34 H 19 Blood Pressure 181/88 H 183/92 H 183/93 H Pulse Oximetry 99 99 99 02/12/22 22:00 02/12/22 22:15 Pulse Rate 88 84 Respiratory Rate 17 20 Blood Pressure 176/88 H 173/91 H Pulse Oximetry 98 98 <Jacquelin Foster MD - Last Filed: 02/13/22 03:49> Orders Ordered: ED Orders 02/12/22 20:02 COVID19 -Nasal swab/Pre-Proc Stat 02/12/22 20:10 FFP [Fresh Frozen Plasma] Stat Type and Screen Stat 02/12/22 21:15 UA Complete [Urinalysis and Microscopic] Stat urine tox [Urine Drug Screen, Rapid] Stat Acetaminophen (Acetaminophen 325 Mg Tablet) 650 mg PO Q6HR PRN PRN Reason: Fever/Mild Pain (1-3) Enoxaparin Sodium (Enoxaparin 40 Mg/0.4 Ml Syringe) 40 mg SUBCUT DAILY [facility] Famotidine (Famotidine 20 Mg/2 Ml Vial) 20 mg IV NOW [facility] Last Admin: 02/12/22 20:12 Dose: 20 mg Documented by: ATAYLOR Haloperidol (Haloperidol 5 Mg/Ml Vial) 2 mg IV Q2HR PRN PRN Reason: Nausea And Vomiting Sodium Chloride (Normal Saline 0.9%) 1,000 mls @ 150 mls/hr IV CONT [facility] Last Infusion: 02/12/22 23:05 Dose: 0 mls/hr Documented by: Admin: 02/12/22 22:14 Dose: 150 mls/hr Documented by: ATAYLOR Lorazepam (Lorazepam 2 Mg/Ml Inj) 0.5 mg IV Q6HR PRN PRN Reason: Anxiety Naloxone HCl (Naloxone 0.4 Mg/Ml Vial) 0.2 mg IV Q2MIN PRN PRN Reason: Opiate Reversal Ondansetron HCl (Ondansetron 4 Mg/2 Ml Inj) 4 mg IV Q4HR PRN PRN Reason: Nausea And Vomiting Discontinued Medications Diphenhydramine HCl (Diphenhydramine 50 Mg/Ml Vial) 25 mg IV NOW ONE Stop: 02/12/22 17:46 Last Admin: 02/12/22 18:11 Dose: Not Given Documented by: KBROTEM Diphenhydramine HCl (Diphenhydramine 50 Mg/Ml Vial) 50 mg IV NOW ONE Stop: 02/12/22 19:57 Last Admin: 02/12/22 20:06 Dose: 50 mg Documented by: ATAYLOR Enoxaparin Sodium (Enoxaparin 40 Mg/0.4 Ml Syringe) 40 mg SUBCUT DAILY LINDA Haloperidol (Haloperidol 5 Mg/Ml Vial) 5 mg IV NOW ONE Stop: 02/12/22 17:06 Last Admin: 02/12/22 17:15 Dose: 5 mg Documented by: ATAYLOR Sodium Chloride (Normal Saline 0.9%) 1,000 mls @ 1,000 mls/hr IV BOLUS ONE Stop: 02/12/22 18:04 Last Infusion: 02/12/22 18:59 Dose: 0 mls/hr Documented by: Admin: 02/12/22 17:14 Dose: 1,000 mls/hr Documented by: ATAYLOR Sodium Chloride (Normal Saline 0.9%) 1,000 mls @ 1,000 mls/hr IV BOLUS ONE Stop: 02/12/22 19:48 Last Infusion: 02/12/22 20:39 Dose: 0 mls/hr Documented by: Admin: 02/12/22 19:05 Dose: 1,000 mls/hr Documented by: ATAYLOR POTASSIUM CHLORIDE IN WATER (Potassium Cl 10 Meq/100 Ml Megan) 10 meq in 100 mls @ 100 mls/hr IV Q1H LINDA Stop: 02/13/22 02:14 Last Infusion: 02/13/22 02:54 Dose: 0 mls/hr Documented by: CTR.[email or web address] Admin: 02/13/22 01:54 Dose: 100 mls/hr Documented by: CTR.RFUENT Infusion: 02/13/22 01:51 Dose: 100 mls/hr Documented by: CTR.RFUENT Admin: 02/13/22 00:51 Dose: 100 mls/hr Documented by: CTR.RFUENT Infusion: 02/13/22 00:35 Dose: 100 mls/hr Documented by: CTR.RFUENT Admin: 02/12/22 23:35 Dose: 100 mls/hr Documented by: CTR.RFUENT Infusion: 02/12/22 23:35 Dose: 0 mls/hr Documented by: CTR.[email or web address] Infusion: 02/12/22 23:05 Dose: 0 mls/hr Documented by: Admin: 02/12/22 22:14 Dose: 100 mls/hr Documented by: ANKIT Ondansetron HCl (Ondansetron 4 Mg/2 Ml Inj) 4 mg IV NOW ONE Stop: 02/12/22 17:06 Last Admin: 02/12/22 17:14 Dose: 4 mg Documented by: ANKIT Vital Signs Vital signs: Vital Signs - 8 hr 02/12/22 20:00 02/12/22 20:01 02/12/22 20:05 Pulse Rate 86 79 74 Respiratory Rate 23 Blood Pressure 188/99 H 181/102 H Pulse Oximetry 97 97 99 02/12/22 20:10 02/12/22 20:20 02/12/22 20:30 Pulse Rate 85 84 82 Respiratory Rate 23 24 21 Blood Pressure 164/93 H 181/104 H 187/105 H Pulse Oximetry 98 98 99 02/12/22 20:40 02/12/22 20:50 02/12/22 21:00 Pulse Rate 88 90 89 Respiratory Rate 24 24 24 Blood Pressure 178/94 H 174/97 H Pulse Oximetry 98 98 97 02/12/22 21:02 02/12/22 21:30 02/12/22 21:45 Pulse Rate 88 90 95 H Respiratory Rate 21 34 H 19 Blood Pressure 181/88 H 183/92 H 183/93 H Pulse Oximetry 99 99 99 02/12/22 22:00 02/12/22 22:15 Pulse Rate 88 84 Respiratory Rate 17 20 Blood Pressure 176/88 H 173/91 H Pulse Oximetry 98 98 MDM - Nausea/Vomiting/Diarrhea <Willian Lutz PA-C - Last Filed: 02/12/22 19:46> Differential Diagnosis Differential diagnosis: Likely gastroenteritis and dehydration Lab Data Result diagrams: 02/12/22 16:45 02/13/22 00:40 Labs: Lab Results 02/12/22 02/12/22 02/12/22 Range/Units 16:45 16:45 16:45 WBC 5.2 (4.5-11.0) X10^3/uL RBC 4.66 (4.0-5.2) X10^6/uL Hgb 14.5 (12.0-16.0) g/dL Hct 43.6 (36-46) % MCV 93.5 (80-100) fL MCH 31.2 (26-34) PG MCHC 33.3 (30-36) % RDW 13.1 (11.6-14.8) % Plt Count 260 (150-400) X10^3/uL Neut % (Auto) 83.4 H (50-75) % Lymph % (Auto) 11.9 L (25-40) % [place] % (Auto) 4.4 (3-14) % Eos % (Auto) 0.0 L (2-4) % Baso % (Auto) 0.3 (0-2) % Neut # (Auto) 4400 (5456-4467) /uL Lymph # (Auto) 600 L (2090-7568) /uL [place] # (Auto) 200 (0-900) /uL Eos # (Auto) 0 (0-450) /uL Baso # (Auto) 0 (0-100) /uL Sodium 139 (137-145) mmol/L Potassium 3.1 L (3.4-5.1) mmol/L Chloride 95 L (98-107) mmol/L Carbon Dioxide 31 (22-32) mmol/L BUN 16 (7-17) mg/dL Creatinine 0.77 (0.52-1.04) mg/dL Estimated GFR > 60.0 (>60) mL/min BUN/Creatinine Ratio 20.8 (6-22) Glucose 173 H (70-100) mg/dL Calcium 10.3 H (8.4-10.2) mg/dL Total Bilirubin 1.0 (0.2-1.3) mg/dL AST 29 (14-36) IU/L ALT 18 (<35) IU/L Alkaline Phosphatase 102 (38-126) U/L Total Protein 9.6 H (6.3-8.2) g/dL Albumin 5.4 H (3.5-5.0) g/dL Globulin 4.2 H (1.7-4.1) g/dL Albumin/Globulin Ratio 1.3 (1.0-2.8) Lipase 116 (23-300) U/L Urine Color Urine Appearance Urine pH (4.5-8.0) Ur Specific [place] (1.000-1.035) Urine Protein (Negative) Urine Glucose (UA) (Negative) g/dL Urine Ketones (NEGATIVE) Urine Occult Blood (Negative) Urine Nitrate (Negative) Urine Bilirubin (NEGATIVE) Urine Urobilinogen (0.2) E.U./dL Ur Leukocyte Esterase (NEGATIVE) Urine RBC (0-5/HPF) Urine WBC (0-5/HPF) Ur Squamous Epith Cells (0-5/HPF) Amorphous Sediment Urine Bacteria (None) Urine Mucus (Negative) Ur Culture Indicated? U Opiates 300ng/mL cut (Negative) Ur Oxycodone Screen (Negative) Urine Methadone Screen (Negative) Ur Barbiturates Screen (Negative) U Tricyclic Antidepress (Negative) Ur Phencyclidine Scrn (Negative) Ur Amphetamines Screen (Negative) U Methamphetamines Scrn (Negative) Ur MDMA Scrn (Ecstasy) (Negative) U Benzodiazepines Scrn (Negative) Urine Cocaine Screen (Negative) U Marijuana (THC) Screen (Negative) SARS-CoV-2 (PCR) (Negative) Blood Type Antibody Screen 02/12/22 02/12/22 02/12/22 Range/Units 20:02 20:10 21:15 WBC (4.5-11.0) X10^3/uL RBC (4.0-5.2) X10^6/uL Hgb (12.0-16.0) g/dL Hct (36-46) % MCV (80-100) fL MCH (26-34) PG MCHC (30-36) % RDW (11.6-14.8) % Plt Count (150-400) X10^3/uL Neut % (Auto) (50-75) % Lymph % (Auto) (25-40) % [place] % (Auto) (3-14) % Eos % (Auto) (2-4) % Baso % (Auto) (0-2) % Neut # (Auto) (1704-6547) /uL Lymph # (Auto) (0817-7204) /uL [place] # (Auto) (0-900) /uL Eos # (Auto) (0-450) /uL Baso # (Auto) (0-100) /uL Sodium (137-145) mmol/L Potassium (3.4-5.1) mmol/L Chloride (98-107) mmol/L Carbon Dioxide (22-32) mmol/L BUN (7-17) mg/dL Creatinine (0.52-1.04) mg/dL Estimated GFR (>60) mL/min BUN/Creatinine Ratio (6-22) Glucose (70-100) mg/dL Calcium (8.4-10.2) mg/dL Total Bilirubin (0.2-1.3) mg/dL AST (14-36) IU/L ALT (<35) IU/L Alkaline Phosphatase (38-126) U/L Total Protein (6.3-8.2) g/dL Albumin (3.5-5.0) g/dL Globulin (1.7-4.1) g/dL Albumin/Globulin Ratio (1.0-2.8) Lipase (23-300) U/L Urine Color Yellow Urine Appearance Slightly cloudy Urine pH 8.5 H (4.5-8.0) Ur Specific [place] 1.010 (1.000-1.035) Urine Protein 3+ H (Negative) Urine Glucose (UA) Negative (Negative) g/dL Urine Ketones 1+ H (NEGATIVE) Urine Occult Blood 1+ H (Negative) Urine Nitrate Negative (Negative) Urine Bilirubin Negative (NEGATIVE) Urine Urobilinogen 0.2 (0.2) E.U./dL Ur Leukocyte Esterase Negative (NEGATIVE) Urine RBC 1-5/hpf (0-5/HPF) Urine WBC None seen (0-5/HPF) Ur Squamous Epith Cells 1-5 /hpf (0-5/HPF) Amorphous Sediment 2+ Urine Bacteria Few (2-10) H (None) Urine Mucus 1+ H (Negative) Ur Culture Indicated? Cult not indicated U Opiates 300ng/mL cut (Negative) Ur Oxycodone Screen (Negative) Urine Methadone Screen (Negative) Ur Barbiturates Screen (Negative) U Tricyclic Antidepress (Negative) Ur Phencyclidine Scrn (Negative) Ur Amphetamines Screen (Negative) U Methamphetamines Scrn (Negative) Ur MDMA Scrn (Ecstasy) (Negative) U Benzodiazepines Scrn (Negative) Urine Cocaine Screen (Negative) U Marijuana (THC) Screen (Negative) SARS-CoV-2 (PCR) Negative (Negative) Blood Type O Positive Antibody Screen Negative 02/12/22 Range/Units 21:15 WBC (4.5-11.0) X10^3/uL RBC (4.0-5.2) X10^6/uL Hgb (12.0-16.0) g/dL Hct (36-46) % MCV (80-100) fL MCH (26-34) PG MCHC (30-36) % RDW (11.6-14.8) % Plt Count (150-400) X10^3/uL Neut % (Auto) (50-75) % Lymph % (Auto) (25-40) % [place] % (Auto) (3-14) % Eos % (Auto) (2-4) % Baso % (Auto) (0-2) % Neut # (Auto) (1153-1951) /uL Lymph # (Auto) (9667-0556) /uL [place] # (Auto) (0-900) /uL Eos # (Auto) (0-450) /uL Baso # (Auto) (0-100) /uL Sodium (137-145) mmol/L Potassium (3.4-5.1) mmol/L Chloride (98-107) mmol/L Carbon Dioxide (22-32) mmol/L BUN (7-17) mg/dL Creatinine (0.52-1.04) mg/dL Estimated GFR (>60) mL/min BUN/Creatinine Ratio (6-22) Glucose (70-100) mg/dL Calcium (8.4-10.2) mg/dL Total Bilirubin (0.2-1.3) mg/dL AST (14-36) IU/L ALT (<35) IU/L Alkaline Phosphatase (38-126) U/L Total Protein (6.3-8.2) g/dL Albumin (3.5-5.0) g/dL Globulin (1.7-4.1) g/dL Albumin/Globulin Ratio (1.0-2.8) Lipase (23-300) U/L Urine Color Urine Appearance Urine pH (4.5-8.0) Ur Specific [place] (1.000-1.035) Urine Protein (Negative) Urine Glucose (UA) (Negative) g/dL Urine Ketones (NEGATIVE) Urine Occult Blood (Negative) Urine Nitrate (Negative) Urine Bilirubin (NEGATIVE) Urine Urobilinogen (0.2) E.U./dL Ur Leukocyte Esterase (NEGATIVE) Urine RBC (0-5/HPF) Urine WBC (0-5/HPF) Ur Squamous Epith Cells (0-5/HPF) Amorphous Sediment Urine Bacteria (None) Urine Mucus (Negative) Ur Culture Indicated? U Opiates 300ng/mL cut Negative (Negative) Ur Oxycodone Screen Negative (Negative) Urine Methadone Screen Negative (Negative) Ur Barbiturates Screen Negative (Negative) U Tricyclic Antidepress Negative (Negative) Ur Phencyclidine Scrn Negative (Negative) Ur Amphetamines Screen Negative (Negative) U Methamphetamines Scrn Negative (Negative) Ur MDMA Scrn (Ecstasy) Negative (Negative) U Benzodiazepines Scrn Negative (Negative) Urine Cocaine Screen Positive H (Negative) U Marijuana (THC) Screen Positive H (Negative) SARS-CoV-2 (PCR) (Negative) Blood Type Antibody Screen Imaging Data CT scan - abdomen/pelvis: Radiologist's Impression: PROCEDURE:? CT ABDOMEN PELVIS WO CON ? INDICATIONS:? abdominal pain ? TECHNIQUE:? Noncontrast 5 mm thick sections acquired from the diaphragms to the symphysis.? 5 mm coronal and sagittal reformats were then performed.? For radiation dose reduction, the following was used:? automated exposure control, adjustment of mA and/or kV according to patient size.? ? COMPARISON:? [facility], CT, ABDOMEN/PELVIS WITH CONTRAST, 11/26/2014, 1:04. ? FINDINGS:? Image quality:? Excellent.? ? ABDOMEN:? Lung bases:? Lung bases are clear.? Heart size is normal.? ? Solid organs:? Liver is normal in size.? Gallbladder is surgically absent .? Pancreas is normal in contours.? Spleen is normal in size.? No adrenal nodules.? Kidneys are normal in size, without hydronephrosis or nephrolithiasis.? ? Peritoneum and bowel:? Small hiatal hernia.? Mild distal esophageal wall circumferential thickening.? Unenhanced bowel loops demonstrate normal wall thickness and caliber.? No free fluid or air.? ? Nodes and vessels:? No retroperitoneal or mesenteric adenopathy by size criteria.? Aorta and inferior vena cava are normal in caliber.? There is a splenic artery aneurysm, which is not appreciably changed in size compared to the previous study.? It measures approximately 2.4 x 1.8 cm. ? Miscellaneous:? No ventral hernias.? ? ? PELVIS:? Genitourinary:? Bladder wall thickness is normal.? ? Miscellaneous:? No inguinal hernias or adenopathy.? IUD present in the uterus.? ? Bones:? No suspicious bony lesions.? No vertebral body compression fractures.? ? IMPRESSION:? ? 1. There is a small hiatal hernia. ? 2. There is diffuse distal esophageal wall thickening, possibly representing esophagitis. ? 3. Unchanged size of splenic artery aneurysm. ? 4. IUD. ? 5. No evidence of acute abdominal process.? ? ? Dictated by: Kade Mackey M.D. on 02/12/2022 at 18:21 ? ? Approved by: Kade Mackey M.D. on 02/12/2022 at 18:25?? MDM Narrative Medical decision making narrative: Patient was evaluated today for nausea vomiting abdominal pain. CT scan showed evidence of a small hiatal hernia but no acute findings. Blood work unremarkable. Will treat her symptoms with IV fluids antiemetics. Once patient feels comfortable nausea has subsided patient will be discharged home. <Jacquelin Foster MD - Last Filed: 02/13/22 03:49> Lab Data Labs: Lab Results 02/12/22 02/12/22 02/12/22 Range/Units 16:45 16:45 16:45 WBC 5.2 (4.5-11.0) X10^3/uL RBC 4.66 (4.0-5.2) X10^6/uL Hgb 14.5 (12.0-16.0) g/dL Hct 43.6 (36-46) % MCV 93.5 (80-100) fL MCH 31.2 (26-34) PG MCHC 33.3 (30-36) % RDW 13.1 (11.6-14.8) % Plt Count 260 (150-400) X10^3/uL Neut % (Auto) 83.4 H (50-75) % Lymph % (Auto) 11.9 L (25-40) % [place] % (Auto) 4.4 (3-14) % Eos % (Auto) 0.0 L (2-4) % Baso % (Auto) 0.3 (0-2) % Neut # (Auto) 4400 (8582-7241) /uL Lymph # (Auto) 600 L (5525-3806) /uL [place] # (Auto) 200 (0-900) /uL Eos # (Auto) 0 (0-450) /uL Baso # (Auto) 0 (0-100) /uL Sodium 139 (137-145) mmol/L Potassium 3.1 L (3.4-5.1) mmol/L Chloride 95 L (98-107) mmol/L Carbon Dioxide 31 (22-32) mmol/L BUN 16 (7-17) mg/dL Creatinine 0.77 (0.52-1.04) mg/dL Estimated GFR > 60.0 (>60) mL/min BUN/Creatinine Ratio 20.8 (6-22) Glucose 173 H (70-100) mg/dL Calcium 10.3 H (8.4-10.2) mg/dL Total Bilirubin 1.0 (0.2-1.3) mg/dL AST 29 (14-36) IU/L ALT 18 (<35) IU/L Alkaline Phosphatase 102 (38-126) U/L Total Protein 9.6 H (6.3-8.2) g/dL Albumin 5.4 H (3.5-5.0) g/dL Globulin 4.2 H (1.7-4.1) g/dL Albumin/Globulin Ratio 1.3 (1.0-2.8) Lipase 116 (23-300) U/L Urine Color Urine Appearance Urine pH (4.5-8.0) Ur Specific [place] (1.000-1.035) Urine Protein (Negative) Urine Glucose (UA) (Negative) g/dL Urine Ketones (NEGATIVE) Urine Occult Blood (Negative) Urine Nitrate (Negative) Urine Bilirubin (NEGATIVE) Urine Urobilinogen (0.2) E.U./dL Ur Leukocyte Esterase (NEGATIVE) Urine RBC (0-5/HPF) Urine WBC (0-5/HPF) Ur Squamous Epith Cells (0-5/HPF) Amorphous Sediment Urine Bacteria (None) Urine Mucus (Negative) Ur Culture Indicated? U Opiates 300ng/mL cut (Negative) Ur Oxycodone Screen (Negative) Urine Methadone Screen (Negative) Ur Barbiturates Screen (Negative) U Tricyclic Antidepress (Negative) Ur Phencyclidine Scrn (Negative) Ur Amphetamines Screen (Negative) U Methamphetamines Scrn (Negative) Ur MDMA Scrn (Ecstasy) (Negative) U Benzodiazepines Scrn (Negative) Urine Cocaine Screen (Negative) U Marijuana (THC) Screen (Negative) SARS-CoV-2 (PCR) (Negative) Blood Type Antibody Screen 02/12/22 02/12/22 02/12/22 Range/Units 20:02 20:10 21:15 WBC (4.5-11.0) X10^3/uL RBC (4.0-5.2) X10^6/uL Hgb (12.0-16.0) g/dL Hct (36-46) % MCV (80-100) fL MCH (26-34) PG MCHC (30-36) % RDW (11.6-14.8) % Plt Count (150-400) X10^3/uL Neut % (Auto) (50-75) % Lymph % (Auto) (25-40) % [place] % (Auto) (3-14) % Eos % (Auto) (2-4) % Baso % (Auto) (0-2) % Neut # (Auto) (0824-9461) /uL Lymph # (Auto) (4112-1490) /uL [place] # (Auto) (0-900) /uL Eos # (Auto) (0-450) /uL Baso # (Auto) (0-100) /uL Sodium (137-145) mmol/L Potassium (3.4-5.1) mmol/L Chloride (98-107) mmol/L Carbon Dioxide (22-32) mmol/L BUN (7-17) mg/dL Creatinine (0.52-1.04) mg/dL Estimated GFR (>60) mL/min BUN/Creatinine Ratio (6-22) Glucose (70-100) mg/dL Calcium (8.4-10.2) mg/dL Total Bilirubin (0.2-1.3) mg/dL AST (14-36) IU/L ALT (<35) IU/L Alkaline Phosphatase (38-126) U/L Total Protein (6.3-8.2) g/dL Albumin (3.5-5.0) g/dL Globulin (1.7-4.1) g/dL Albumin/Globulin Ratio (1.0-2.8) Lipase (23-300) U/L Urine Color Yellow Urine Appearance Slightly cloudy Urine pH 8.5 H (4.5-8.0) Ur Specific [place] 1.010 (1.000-1.035) Urine Protein 3+ H (Negative) Urine Glucose (UA) Negative (Negative) g/dL Urine Ketones 1+ H (NEGATIVE) Urine Occult Blood 1+ H (Negative) Urine Nitrate Negative (Negative) Urine Bilirubin Negative (NEGATIVE) Urine Urobilinogen 0.2 (0.2) E.U./dL Ur Leukocyte Esterase Negative (NEGATIVE) Urine RBC 1-5/hpf (0-5/HPF) Urine WBC None seen (0-5/HPF) Ur Squamous Epith Cells 1-5 /hpf (0-5/HPF) Amorphous Sediment 2+ Urine Bacteria Few (2-10) H (None) Urine Mucus 1+ H (Negative) Ur Culture Indicated? Cult not indicated U Opiates 300ng/mL cut (Negative) Ur Oxycodone Screen (Negative) Urine Methadone Screen (Negative) Ur Barbiturates Screen (Negative) U Tricyclic Antidepress (Negative) Ur Phencyclidine Scrn (Negative) Ur Amphetamines Screen (Negative) U Methamphetamines Scrn (Negative) Ur MDMA Scrn (Ecstasy) (Negative) U Benzodiazepines Scrn (Negative) Urine Cocaine Screen (Negative) U Marijuana (THC) Screen (Negative) SARS-CoV-2 (PCR) Negative (Negative) Blood Type O Positive Antibody Screen Negative 02/12/22 Range/Units 21:15 WBC (4.5-11.0) X10^3/uL RBC (4.0-5.2) X10^6/uL Hgb (12.0-16.0) g/dL Hct (36-46) % MCV (80-100) fL MCH (26-34) PG MCHC (30-36) % RDW (11.6-14.8) % Plt Count (150-400) X10^3/uL Neut % (Auto) (50-75) % Lymph % (Auto) (25-40) % [place] % (Auto) (3-14) % Eos % (Auto) (2-4) % Baso % (Auto) (0-2) % Neut # (Auto) (3595-8809) /uL Lymph # (Auto) (2543-7299) /uL [place] # (Auto) (0-900) /uL Eos # (Auto) (0-450) /uL Baso # (Auto) (0-100) /uL Sodium (137-145) mmol/L Potassium (3.4-5.1) mmol/L Chloride (98-107) mmol/L Carbon Dioxide (22-32) mmol/L BUN (7-17) mg/dL Creatinine (0.52-1.04) mg/dL Estimated GFR (>60) mL/min BUN/Creatinine Ratio (6-22) Glucose (70-100) mg/dL Calcium (8.4-10.2) mg/dL Total Bilirubin (0.2-1.3) mg/dL AST (14-36) IU/L ALT (<35) IU/L Alkaline Phosphatase (38-126) U/L Total Protein (6.3-8.2) g/dL Albumin (3.5-5.0) g/dL Globulin (1.7-4.1) g/dL Albumin/Globulin Ratio (1.0-2.8) Lipase (23-300) U/L Urine Color Urine Appearance Urine pH (4.5-8.0) Ur Specific [place] (1.000-1.035) Urine Protein (Negative) Urine Glucose (UA) (Negative) g/dL Urine Ketones (NEGATIVE) Urine Occult Blood (Negative) Urine Nitrate (Negative) Urine Bilirubin (NEGATIVE) Urine Urobilinogen (0.2) E.U./dL Ur Leukocyte Esterase (NEGATIVE) Urine RBC (0-5/HPF) Urine WBC (0-5/HPF) Ur Squamous Epith Cells (0-5/HPF) Amorphous Sediment Urine Bacteria (None) Urine Mucus (Negative) Ur Culture Indicated? U Opiates 300ng/mL cut Negative (Negative) Ur Oxycodone Screen Negative (Negative) Urine Methadone Screen Negative (Negative) Ur Barbiturates Screen Negative (Negative) U Tricyclic Antidepress Negative (Negative) Ur Phencyclidine Scrn Negative (Negative) Ur Amphetamines Screen Negative (Negative) U Methamphetamines Scrn Negative (Negative) Ur MDMA Scrn (Ecstasy) Negative (Negative) U Benzodiazepines Scrn Negative (Negative) Urine Cocaine Screen Positive H (Negative) U Marijuana (THC) Screen Positive H (Negative) SARS-CoV-2 (PCR) (Negative) Blood Type Antibody Screen MDM Narrative Medical decision making narrative: Patient was evaluated today for nausea vomiting abdominal pain. CT scan showed evidence of a small hiatal hernia but no acute findings. Blood work unremarkable. Will treat her symptoms with IV fluids antiemetics. Once patient feels comfortable nausea has subsided patient will be discharged home. 745pm nursing staff noted acute swelling to her tongue. Asked the urgently evaluate. Left side of her tongue and posterior portion of her tongue are indeed swelling. She states that she has had a couple of episodes of angioedema since receiving a COVID shot a number of months ago she is unclear on additional specifics beyond that. Swelling is significant enough that she is having difficulty swallowing her voice is hoarse. She is is given 50 mg of IV Benadryl, IV Pepcid, IV Solu-Medrol and epinephrine. Type and screen is ordered on the off chance that fresh frozen plasma might be required with worsening angioedema. Of note, there does not seem to be any medications that were immediately administered that would be temporally related to the developing angioedema. 815 re-evaluated. Swelling is dramatically improved to almost completely resolved. 830 re-evaluated patient regarding presented complain of recurrent cyclic vomiting. She apparently has a 20 year history of cyclic vomiting and has extensive workup. She does have marijuana in her urine tox screen but it does not look like there has been much of a discussion regarding cannabinoid hyperemesis syndrome. She states that Haldol, Ativan and Benadryl work best to control her vomiting. She has not been alert enough for me to further question her specifically on whether hot showers seem to make a difference. On arrival in the emergency department she was given 2 L of fluid, Zofran, IV Haldol. She was significantly somnolent so Ativan and Benadryl were held. On further evaluation I suspect that she has narcotics on board and is ?nodding off?. She remains significantly hypertensive throughout all of these episodes even with the decreasing level of consciousness. Airway continues to be maintained, there is no wheezing and tongue swelling has entirely resolved. She does have a small laceration where she bit her tongue with this event on the left side. She still states that she feels like she is nauseated and is reluctant to be discharged home. She has not yet spontaneously voided. 10pm still significantly sedated. No signs of tongue, lip, laryngeal swelling or wheeze. She has not yet been able to drink to make sure that she is no longer throwing up. Will recommend overnight observation to make sure the angioedema does not return and continue gentle rehydration as well as IV replacement for her mild hypokalemia. She may well benefit from additional IV antiemetics over the next 12-24 hours. Despite her 20 year history of cyclic vomiting, positive THC the possibility of hereditary angioedema is entertained. With this syndrome gastrointestinal attacks are seen with nausea, vomiting diarrhea reportedly from bowel wall edema and that may be contributing to the cyclic vomiting as well. May need further outpatient workup as continued evaluation for her cyclic vomiting syndrome overall. Care is reviewed with hospitalist and she will be admitted observation status overnight. <Jacquelin Foster MD - Last Filed: 02/13/22 03:49> Critical Care Time Critical Care Time: Yes Total Critical Care Time: 33 Attestation: Critical care time is separate from other billable procedures. There is a high probability of a significant, sudden or life-threatening deterioration that requires my full and direct attention, intervention and personal management. This critical care time includes consultation with family and other consulting doctors, review of records, and interpretation of data from labs, EKGs and imaging as well as managements of acute angioedema with potential loss of airway. Discharge Plan Departure Patient Disposition: Admitted as Observation Clinical Impression: Cyclic vomiting syndrome, Acute hypokalemia, Acquired angioedema Admit Date/Time: 02/12/22 22:21 Admit Provider: Malorie Hernández ED Sign-out <Willian Lutz PA-C - Last Filed: 02/12/22 19:46> Sign Out Provider Sign Out Attestation: Report given to Marilyn Foster DO for further care and treatment.
[2022-02-12 18:03] LABS: Lipase 116 U/L (23-300)
--- NOTE | 2022-02-12 18:08 | PC.NURSE ---
Pt resting with eyes closed,when I went in the room to verify her name/ she did not wake up. Vital signs were just done by primary RN Patricia and were normal other than elevated bp. Deferred giving pt ativan and benadryl at this time. Willian Lutz aware of pts status.
--- NOTE | 2022-02-12 18:59 | PC.NURSE ---
Pt laying on back with eyes closed, pt awoke to light touch, noted to no longer be retching as she was when she first came in. Pt denies improvement since arrival.
--- NOTE | 2022-02-12 19:49 | PC.NURSE ---
Pt resting with eyes closed on her left side, easily arousable, no distress noted.
[2022-02-12] MEDS: diphenhydrAMINE 50 MG/ML VIAL IV (20:06)
[2022-02-12] MEDS: methylPREDNISolone 125 MG/2 ML VIAL (20:06)
[2022-02-12] MEDS: EPINEPHrine 1 MG/ML (20:07)
[2022-02-12] MEDS: FAMOTIDINE 20 MG/2 ML VIAL IV (20:12)
--- NOTE | 2022-02-12 20:25 | PC.NURSE ---
Responded to pt call quevedo to find pt sitting up in distress reporting tongue swelling, tongue out of pts mouth and edema noted. Pt able to speak and air flowing. Dr. Foster notified immediately, orders received, and Dr. Foster at bedside assessing pt. Per spouse this happens occasionally and worsens quickly, per his report this has happened to pt without warning 4 times since she received the covid19 vaccine. 2018: tongue edema improved, pt states she feels swelling has improved
--- NOTE | 2022-02-12 20:40 | PC.NURSE ---
Pt aware of order for urine, pt states she doesn't need to pee at this time, states the last time she peed was at 1230 in the shower.
[2022-02-12 21:53] LABS: COVID19 -Nasal RAPID Negative (Negative)
[2022-02-12 21:55] LABS: Bilirubin Urine UA NEGATIVE (NEGATIVE); Color Urine UA YELLOW; Glucose Urine UA NEGATIVE (Negative); Ketones Urine UA 1+ (NEGATIVE); Leukocyte Esterase Urine UA NEGATIVE (NEGATIVE); Nitrite Urine UA NEGATIVE (Negative); Occult Blood Urine UA 1+ (Negative); Protein Urine UA 3+ (Negative); Urobilinogen Urine UA 0.2 E.U./dL (0.2)
[2022-02-12 21:57] LABS: Ur Creatinine Normal (Normal); Ur Specific Gravity Normal (Normal)
[2022-02-12 21:58] LABS: UR Morphine/Opiate cutoff 300 Negative (Negative); Urine Amphetamines Negative (Negative); Urine Barbiturates Negative (Negative); Urine Benzodiazepines Negative (Negative); Urine Cocaine Positive (Negative); Urine MDMA Negative (Negative); Urine Methadone Negative (Negative); Urine Methamphetamines Negative (Negative); Urine Oxycodone Negative (Negative); Urine Phencyclidine Negative (Negative); Urine Tetrahydrocannabinol Positive (Negative); Urine Tricyclic Antidepressant Negative (Negative); Urine pH Normal (Normal)
[2022-02-12 22:06] LABS: pH Urine UA 8.5 (4.5-8.0)
[2022-02-12 22:07] LABS: Amorphous Sediment Urine 2+; Appearance Urine UA Slightly Cloudy; Bacteria Urine Few (2-10); RBC Urine 1-5/HPF (0-5/HPF); Squamous Epithelial Cell Urine 1-5 /HPF (0-5/HPF); WBC Urine None Seen (0-5/HPF)
[2022-02-12 22:08] LABS: Culture Indicated Urine Cult Not Indicated; Mucus Urine 1+ (Negative)
[2022-02-12] MEDS: POTASSIUM CHLORIDE IN WATER 10 MEQ/100 ML PIGGYBACK 100 MEQ IV ×2 (22:14→23:35)
[2022-02-12] MEDS: SODIUM CHLORIDE 0.9% 1,000 ML 150 ML IV (22:14)
--- NOTE | 2022-02-12 23:36 | P.HP_ITS ---
History of Present Illness History of Present Illness Date Patient Seen: 02/12/22 Time Patient Seen: 23:36 Chief complaint: Vomiting Narrative: Rhonda Yadav is a 46-year-old female with nausea and vomiting who presented to the emergency room today. Unable to obtain history from patient as she is very lethargic other than she states that she has angioedema of the tongue and that her daughter has this as well. Per the emergency department she has a history of cyclical vomiting and is a regular marijuana user. I am unable to obtain any other history from her as she becomes agitated when awake and. Nursing is trying to interview her at the moment. She has come into the emergency department and normally is treated with Benadryl, Ativan and Haldol. She was in the process of being readied for discharge when she developed tongue swelling. She was then administered IV Solu-Medrol, Benadryl and Pepcid. She was ordered for FFP however she appeared to normalize quickly after that medication and it is currently being held. ED requested observation bed so that she could be monitored for 12 hours to make sure she does not develop angioedema of her tong ue again. They did do a toxicology screen and she was positive for both cocaine and marijuana. Patient has had multiple workups by Gastroenterology at a [facility] with no definitive results or reasons for the nausea and vomiting. CT of the abdomen and pelvis indicated small hiatal hernia, diffuse esophageal wall thickening possibly esophagitis, IUD, and unchanged size of the splenic artery aneurysm. Patient's vital signs are stable and within normal limits, CBC is unremarkable, her potassium is 3.1, glucose 173, calcium 10.3, albumin is 5.4, UA is negative for UTI, and as mentioned before toxicology screen is positive for cocaine and marijuana, COVID-19 PCR is negative. She has a type O- positive blood type. Patient History Medical History (Updated 02/13/22 @ 00:31 by PIPO Brownlee) Abscess Chronic abdominal pain Cyclic vomiting syndrome Family history of angioedema Marijuana use, continuous MRSA (methicillin resistant staph aureus) culture positive Pancreatitis Surgical History (Updated 02/13/22 @ 00:31 by PIPO Brownlee) Hx of appendectomy Hx of cholecystectomy Family & Social History Family History Father Hypertension Mother Diabetes mellitus Daughter Angio-edema Other Colon cancer Family history unavailable: Yes (Refuses to answer) Safety & Behavioral: Feels Safe in Current Yes Environment Been Physically Hurt or No Threatened By a Person Tobacco & Substance use: Smoking Status Current every day smoker alcohol intake frequency 0-2 drinks per day Substance Use Type marijuana Meds Home Medications and Allergies Home Medications Medication Instructions Recorded Confirmed Type ondansetron 4 mg disintegrating 4 mg PO Q8H PRN #10 tab 11/07/19 12/06/21 Rx tablet ondansetron 8 mg disintegrating 8 mg PO TID PRN 12/29/19 12/06/21 History tablet sumatriptan 5 mg/actuation nasal 5 mg INTRANASAL Q2-4H PRN #1 ea 09/14/21 12/06/21 Rx spray Allergies Allergy/AdvReac Type Severity Reaction Status Date / Time promethazine [PROMETHAZINE] Allergy Mild ERYTHEMA Verified 12/06/21 15:49 TO IV SITE PT STATES ABLE TO TAKE SC latex [LATEX] Allergy Unknown Verified 02/12/22 15:46 metoclopramide AdvReac Unknown DYSTONIA Verified 02/12/22 15:46 [METOCLOPRAMIDE] Review of Systems Review of Systems ROS: Yes unobtainable due to mental status Exam Vital Signs (past 8 hours): - 02/12/22 15:38 02/12/22 18:02 02/12/22 19:46 Temperature 97.5 F L Pulse Rate 95 H 84 79 Respiratory Rate 18 20 Blood Pressure 180/106 H 195/94 H 181/136 H Pulse Oximetry 100 99 94 02/12/22 20:00 02/12/22 20:01 02/12/22 20:05 Temperature Pulse Rate 86 79 74 Respiratory Rate 23 Blood Pressure 188/99 H 181/102 H Pulse Oximetry 97 97 99 02/12/22 20:10 02/12/22 20:20 02/12/22 20:30 Temperature Pulse Rate 85 84 82 Respiratory Rate 23 24 21 Blood Pressure 164/93 H 181/104 H 187/105 H Pulse Oximetry 98 98 99 02/12/22 20:40 02/12/22 20:50 02/12/22 21:00 Temperature Pulse Rate 88 90 89 Respiratory Rate 24 24 24 Blood Pressure 178/94 H 174/97 H Pulse Oximetry 98 98 97 02/12/22 21:02 02/12/22 21:30 02/12/22 21:45 Temperature Pulse Rate 88 90 95 H Respiratory Rate 21 34 H 19 Blood Pressure 181/88 H 183/92 H 183/93 H Pulse Oximetry 99 99 99 02/12/22 22:00 02/12/22 22:15 02/12/22 22:30 Temperature Pulse Rate 88 84 87 Respiratory Rate 17 20 25 H Blood Pressure 176/88 H 173/91 H 122/60 Pulse Oximetry 98 98 96 Oxygen Delivery Method Room Air Narrative Exam Narrative: Gen: Alert, oriented, thin 46 y.o. appears to be of mixed ethnic heritage (?) female, very lethargic and diaphoretic, has completely soaked the upper portion of her gown. HEENT: normocephalic, atraumatic, conjunctiva clear, sclera non-icteric, oral mucosa pink and moist Neck: supple, full ROM, no JVD, trachea is midline Resp: Lungs CTA, non-labored breathing CV: RRR, no murmur or rubs Abd: soft, non-tender, normoactive BTs Skin: no lesions or rashes, dry and intact Neuro: Unable to stay awake while speaking Extremities: moves all 4 extremities, is ambulatory, negative Ramiro?s sign Psyche: mildly agitated when awakened. Objective Labs Result Diagrams: 02/12/22 16:45 02/12/22 16:45 Labs: Laboratory Results - last 24 hr 02/12/22 02/12/22 02/12/22 16:45 16:45 16:45 WBC 5.2 RBC 4.66 Hgb 14.5 Hct 43.6 MCV 93.5 MCH 31.2 MCHC 33.3 RDW 13.1 Plt Count 260 Neut % (Auto) 83.4 H Lymph % (Auto) 11.9 L [place] % (Auto) 4.4 Eos % (Auto) 0.0 L Baso % (Auto) 0.3 Neut # (Auto) 4400 Lymph # (Auto) 600 L [place] # (Auto) 200 Eos # (Auto) 0 Baso # (Auto) 0 Sodium 139 Potassium 3.1 L Chloride 95 L Carbon Dioxide 31 BUN 16 Creatinine 0.77 Estimated GFR > 60.0 BUN/Creatinine Ratio 20.8 Glucose 173 H Calcium 10.3 H Total Bilirubin 1.0 AST 29 ALT 18 Alkaline Phosphatase 102 Total Protein 9.6 H Albumin 5.4 H Globulin 4.2 H Albumin/Globulin Ratio 1.3 Lipase 116 Urine Color Urine Appearance Urine pH Ur Specific [place] Urine Protein Urine Glucose (UA) Urine Ketones Urine Occult Blood Urine Nitrate Urine Bilirubin Urine Urobilinogen Ur Leukocyte Esterase Urine RBC Urine WBC Ur Squamous Epith Cells Amorphous Sediment Urine Bacteria Urine Mucus Ur Culture Indicated? U Opiates 300ng/mL cut Ur Oxycodone Screen Urine Methadone Screen Ur Barbiturates Screen U Tricyclic Antidepress Ur Phencyclidine Scrn Ur Amphetamines Screen U Methamphetamines Scrn Ur MDMA Scrn (Ecstasy) U Benzodiazepines Scrn Urine Cocaine Screen U Marijuana (THC) Screen SARS-CoV-2 (PCR) Blood Type Antibody Screen 02/12/22 02/12/22 02/12/22 20:02 20:10 21:15 WBC RBC Hgb Hct MCV MCH MCHC RDW Plt Count Neut % (Auto) Lymph % (Auto) [place] % (Auto) Eos % (Auto) Baso % (Auto) Neut # (Auto) Lymph # (Auto) [place] # (Auto) Eos # (Auto) Baso # (Auto) Sodium Potassium Chloride Carbon Dioxide BUN Creatinine Estimated GFR BUN/Creatinine Ratio Glucose Calcium Total Bilirubin AST ALT Alkaline Phosphatase Total Protein Albumin Globulin Albumin/Globulin Ratio Lipase Urine Color Yellow Urine Appearance Slightly cloudy Urine pH 8.5 H Ur Specific [place] 1.010 Urine Protein 3+ H Urine Glucose (UA) Negative Urine Ketones 1+ H Urine Occult Blood 1+ H Urine Nitrate Negative Urine Bilirubin Negative Urine Urobilinogen 0.2 Ur Leukocyte Esterase Negative Urine RBC 1-5/hpf Urine WBC None seen Ur Squamous Epith Cells 1-5 /hpf Amorphous Sediment 2+ Urine Bacteria Few (2-10) H Urine Mucus 1+ H Ur Culture Indicated? Cult not indicated U Opiates 300ng/mL cut Ur Oxycodone Screen Urine Methadone Screen Ur Barbiturates Screen U Tricyclic Antidepress Ur Phencyclidine Scrn Ur Amphetamines Screen U Methamphetamines Scrn Ur MDMA Scrn (Ecstasy) U Benzodiazepines Scrn Urine Cocaine Screen U Marijuana (THC) Screen SARS-CoV-2 (PCR) Negative Blood Type O Positive Antibody Screen Negative 02/12/22 21:15 WBC RBC Hgb Hct MCV MCH MCHC RDW Plt Count Neut % (Auto) Lymph % (Auto) [place] % (Auto) Eos % (Auto) Baso % (Auto) Neut # (Auto) Lymph # (Auto) [place] # (Auto) Eos # (Auto) Baso # (Auto) Sodium Potassium Chloride Carbon Dioxide BUN Creatinine Estimated GFR BUN/Creatinine Ratio Glucose Calcium Total Bilirubin AST ALT Alkaline Phosphatase Total Protein Albumin Globulin Albumin/Globulin Ratio Lipase Urine Color Urine Appearance Urine pH Ur Specific [place] Urine Protein Urine Glucose (UA) Urine Ketones Urine Occult Blood Urine Nitrate Urine Bilirubin Urine Urobilinogen Ur Leukocyte Esterase Urine RBC Urine WBC Ur Squamous Epith Cells Amorphous Sediment Urine Bacteria Urine Mucus Ur Culture Indicated? U Opiates 300ng/mL cut Negative Ur Oxycodone Screen Negative Urine Methadone Screen Negative Ur Barbiturates Screen Negative U Tricyclic Antidepress Negative Ur Phencyclidine Scrn Negative Ur Amphetamines Screen Negative U Methamphetamines Scrn Negative Ur MDMA Scrn (Ecstasy) Negative U Benzodiazepines Scrn Negative Urine Cocaine Screen Positive H U Marijuana (THC) Screen Positive H SARS-CoV-2 (PCR) Blood Type Antibody Screen Assessment & Plan Assessment & Plan narrative: Rhonda Yadav is placed into observation to monitor after a single episode of angioedema experienced in the ED. 1. 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 Cyclical vomiting, acute, present on admission * Unknown if this is due to patient's regular marijuana use versus a component of HAE * Symptom controlled with IV Haldol * Urine toxicology screen was positive for both marijuana and cocaine 3. Hypokalemia, acute, present on admission * She was repleted with 60 mEqs IV potassium, which is still running well she 0 arrives on the floor * Unable to administer p.o. due to the patient's extreme lethargy VTE Prophylaxis: Wells risk score 0 Enoxaparin 40 mg subQ once daily Bilateral SCDs Patient is placed into observation as her stay is not expected to exceed 2 midnights. FEN: IV fluids: IV NS at 100 ml/hour, diet: NPO until awake, labs: CBC, C/BMP, liver enzymes, Mag, PT/INR Consultants None Dispo: probable discharge to home, patient is at high risk for discharge AMA. Code status: Presumed full code until patient informs us. [X] I have utilized all available immediate resources to obtain, update, or review of the patient's current medications COVID-19 COVID-19 status: Negative Result date/Date tested (Pos, Neg/Pending): 02/13/22 Time Spent With Patient Critical Care time: I spent a total of [] minutes of critical care time on this patient's care today; this time is exclusive of procedural time. Scores GCS [place] coma scale eye opening: To sound [place] coma scale verbal response: Words [place] coma scale motor response: Localising [place] coma scale total score: 11 Wells' Criteria for PE Clinical signs and symptoms of DVT: No PE is #1 Dx or equally likely: No Heart rate > 100: No Immobilization at least 3 days or surg in previous 4 weeks: No History of PE or DVT: No Hemoptysis: No Malignancy w/Treatment within 6 months or palliative: No Wells' PE Score total: 0 Quality VTE Deep Vein Thrombosis/Pulmonary Embolism Present on Admission: No MIPS - Admit The patient?s Advance Care plan is not present because I confirmed today that the patient does not wish or was not able to name a surrogate decision maker or provide an Advance Care Plan.: Yes MIPS - DC The patient has current or prior documentation of left ventricular ejection fraction (LVEF) less than 40%, or moderate or severely depressed left ventricular systolic function.: No
[2022-02-13] MEDS: POTASSIUM CHLORIDE IN WATER 10 MEQ/100 ML PIGGYBACK 100 MEQ IV ×2 (00:51→01:54)
[2022-02-13 00:59] LABS: BUN Creatinine Ratio 19.4 (6-22); Blood Urea Nitrogen 12 mg/dL (7-17); Calcium 8.4 mg/dL (8.4-10.2); Carbon Dioxide 25 mmol/L (22-32); Chloride 107 mmol/L (98-107); Estimated Glomerular Filt Rate > 60.0 mL/min (>60); Glucose 134 mg/dL (70-100); HEMOLYSIS < 15 (0-50); Potassium 3.9 mmol/L (3.4-5.1); Sodium 139 mmol/L (137-145)
[2022-02-13 03:29] VITALS: O2SAT 96
[2022-02-13] MEDS: SODIUM CHLORIDE 0.9% 1,000 ML 150 ML IV (05:09)
[2022-02-13 05:48] VITALS: BP 155/76; PULSE 76; RESP 16; TEMP 36.3; O2SAT 100
--- NOTE | 2022-02-13 05:51 | PC.NURSE ---
Shift Note: Received patient from ER by wheelchair, patient appears lethagic but arousable to sound and touch, oriented to self and birthday. Vital signs within acceptable limits. Denies any shortness of breath or pain/discomfort. Kept patient NPO as ordered. IV fluids maintained. Patient able to get up from bed with one person assist and uses toilet, safety precautions maintained.
[2022-02-13] MEDS: ONDANSETRON 4 MG/2 ML INJ IV (06:26)
[2022-02-13] MEDS: FAMOTIDINE 20 MG/2 ML VIAL IV (06:26)
[2022-02-13 06:50] LABS: Add Manual Diff / Slide Review NO; Basophils Absolute Auto 0 /uL (0-100); Basophils Percent Auto 0.4 % (0-2); Eosinophils Absolute Auto 0 /uL (0-450); Hematocrit 38.3 % (36-46); Hemoglobin 12.8 g/dL (12.0-16.0); Lymphocytes Absolute Auto 1100 /uL (1100-4500); Lymphocytes Percent Auto 19.2 % (25-40); Mean Corpuscular HGB Conc 33.5 % (30-36); Mean Corpuscular Hemoglobin 31.7 PG (26-34); Mean Corpuscular Volume 94.8 fL (80-100); Monocytes Absolute Auto 400 /uL (0-900); Monocytes Percent Auto 7.5 % (3-14); Neutrophils Absolute Auto 4300 /uL (1500-7000); Neutrophils Percent Auto 72.9 % (50-75); Platelet Count 224 X10^3/uL (150-400); Red Blood Cell Count 4.04 X10^6/uL (4.0-5.2); Red Cell Distribution Width 13.4 % (11.6-14.8)
[2022-02-13 07:00] VITALS: O2SAT 98
[2022-02-13 07:00] LABS: Alanine Aminotransferase 15 IU/L (<35); Albumin 4.4 g/dL (3.5-5.0); Albumin Globulin Ratio 1.3 (1.0-2.8); Alkaline Phosphatase 73 U/L (38-126); Aspartate Aminotransferase 26 IU/L (14-36); Bilirubin Total 0.8 mg/dL (0.2-1.3); Bilirubin Unconjugated 0.8 mg/dL (0.0-1.1); Globulin 3.4 g/dL (1.7-4.1); HEMOLYSIS < 15 (0-50); Total Protein 7.8 g/dL (6.3-8.2)
[2022-02-13 09:16] VITALS: O2SAT 98
--- NOTE | 2022-02-13 09:29 | CM.DANOTE ---
DCP: Case received, EMR reviewed and met with patient. Spouse, Narendra, was at bedside. Introduced self and role. Was able to get some information from patient while in the room. DCP assessment completed with information currently available. Patient is a 46 year old female who admitted yesterday evening to the care of the hospitalist team. PCP: Dr. Storm. Payer: confirmed: [facility]. Patient came to the hospital via private vehicle secondary to having increased vomiting and abdominal discomfort. Patient has history of hiatal hernia. She is noted to have cyclic vomiting, acute hypokalemia. She is here getting IV fluids. Met with patient in her room. She was not feeling well, spouse at bedside. 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 She and spouse reside in [place]. P: DCP to continue to follow. Patient should be able to go home when she is deemed medically stable. Sera Elias RN/Manager Life Insurance Discharge Planning/Care Management CM Discharge Assessment Start: 02/13/22 09:27 Freq: Status: Active Protocol: Document 02/13/22 09:28 (Rec: 02/13/22 09:28 [id number]) Discharge Planning Assessment Assigned [employer] Sera Elias RN/Manager Life Insurance Advance Directives? No History Provided By Patient,Family Member Has Patient been admitted in last 30 No days? Prior Living Arrangements House Household Members spouse Type of transporation used prior to Drives own vehicle admit Independent with ADL's Yes Is patient alert and oriented? Yes Barriers to Discharge No Discharge Plan Home Transportation Arrangement Spouse Referrals Initiated None needed Whiteboard Updated in Patient Room with Yes name and ext. # of [employer] Review Status In Process Next Review Type Continued Stay Review
[2022-02-13] MEDS: ENOXAPARIN 40 MG/0.4 ML SYRINGE SUBCUT (10:06)
[2022-02-13] MEDS: LORazepam 2 MG/ML INJ 0.5 MG IV (10:17)
[2022-02-13 11:00] VITALS: O2SAT 98
--- NOTE | 2022-02-13 11:40 | PM.DS.1 ---
History of Present Illness History of Present Illness Date Patient Seen: 02/13/22 Time Patient Seen: 11:40 Chief complaint: Vomiting Narrative: Rhonda Yadav is a 46-year-old female with nausea and vomiting who presented to the emergency room today.? Unable to obtain history from patient as she is very lethargic other than she states that she has angioedema of the tongue and that her daughter has this as well.? Per the emergency department she has a history of cyclical vomiting and is a regular marijuana user.? I am unable to obtain any other history from her as she becomes agitated when awake and.? Nursing is trying to interview her at the moment.? She has come into the emergency department and normally is treated with Benadryl, Ativan and Haldol.? She was in the process of being readied for discharge when she developed tongue swelling.? She was then administered IV Solu-Medrol, Benadryl and Pepcid.? She was ordered for FFP however she appeared to normalize quickly after that medication and it is currently being held.? ED requested observation bed so that she could be monitored for 12 hours to make sure she does not develop angioedema of her tongue again.? They did do a toxicology screen and she was positive for both cocaine and marijuana.? Patient has had multiple workups by Gastroenterology at a [facility] with no definitive results or reasons for the nausea and vomiting. CT of the abdomen and pelvis indicated small hiatal hernia, diffuse esophageal wall thickening possibly esophagitis, IUD, and unchanged size of the splenic artery aneurysm.? Patient's vital signs are stable and within normal limits, CBC is unremarkable, her potassium is 3.1, glucose 173, calcium 10.3, albumin is 5.4, UA is negative for UTI, and as mentioned before toxicology screen is positive for cocaine and marijuana, COVID-19 PCR is negative.? She has a type O-positive blood type. Patient History Discharge Providers Provider Date of admission: 02/12/22 22:21 Discharge Date: 02/13/22 Primary care physician: Joanna Storm MD Discharge provider: Evon Orellana MD Summary Hospital Course Discharge Diagnosis: 1. Angioedema 2. Cyclic vomiting Hospital Course: Patient was admitted to the hospital for angioedema following treatment for cyclic vomiting. She had tongue swelling. Patient reports both her and her daughter have had this before. She received IV Solu-Medrol, Benadryl, and Haldol. Although she continued to have some swelling of her tongue today this had not progressed. She was able to swallow. She had no airway compromise. Patient reports nausea but no vomiting. Has or symptoms appear to have stabilized she was deemed appropriate for discharge and arrangements were made to discharge her home. Status at Discharge Cognitive/behavioral status at discharge: oriented Functional status at discharge: independent ambulation Overall status at discharge: patient is progressing back to baseline Exam Vital Signs (past 8 hours): - 02/13/22 05:48 Temperature 97.4 F L Pulse Rate 76 Respiratory Rate 16 Blood Pressure 155/76 H Pulse Oximetry 100 Oxygen Delivery Method Room Air Oxygen Flow Rate 0 Narrative Exam Narrative: Agitated female lying in bed HENMT Other: Oropharynx, tongue somewhat enlarged, airway open, and not obstructive Resp Other: Lungs clear to auscultation Cardio Other: Cardiac exam: Regular rate and rhythm normal S1-S2 Extrem Other: Extremity no edema Objective Labs Result Diagrams: 02/13/22 06:34 02/13/22 00:40 Labs: Laboratory Results - last 24 hr 02/12/22 02/12/22 02/12/22 16:45 16:45 16:45 WBC 5.2 RBC 4.66 Hgb 14.5 Hct 43.6 MCV 93.5 MCH 31.2 MCHC 33.3 RDW 13.1 Plt Count 260 Neut % (Auto) 83.4 H Lymph % (Auto) 11.9 L [place] % (Auto) 4.4 Eos % (Auto) 0.0 L Baso % (Auto) 0.3 Neut # (Auto) 4400 Lymph # (Auto) 600 L [place] # (Auto) 200 Eos # (Auto) 0 Baso # (Auto) 0 Sodium 139 Potassium 3.1 L Chloride 95 L Carbon Dioxide 31 BUN 16 Creatinine 0.77 Estimated GFR > 60.0 BUN/Creatinine Ratio 20.8 Glucose 173 H Calcium 10.3 H Total Bilirubin 1.0 Conjugated Bilirubin Unconjugated Bilirubin AST 29 ALT 18 Alkaline Phosphatase 102 Total Protein 9.6 H Albumin 5.4 H Globulin 4.2 H Albumin/Globulin Ratio 1.3 Lipase 116 Urine Color Urine Appearance Urine pH Ur Specific [place] Urine Protein Urine Glucose (UA) Urine Ketones Urine Occult Blood Urine Nitrate Urine Bilirubin Urine Urobilinogen Ur Leukocyte Esterase Urine RBC Urine WBC Ur Squamous Epith Cells Amorphous Sediment Urine Bacteria Urine Mucus Ur Culture Indicated? U Opiates 300ng/mL cut Ur Oxycodone Screen Urine Methadone Screen Ur Barbiturates Screen U Tricyclic Antidepress Ur Phencyclidine Scrn Ur Amphetamines Screen U Methamphetamines Scrn Ur MDMA Scrn (Ecstasy) U Benzodiazepines Scrn Urine Cocaine Screen U Marijuana (THC) Screen SARS-CoV-2 (PCR) Blood Type Antibody Screen 02/12/22 02/12/22 02/12/22 20:02 20:10 21:15 WBC RBC Hgb Hct MCV MCH MCHC RDW Plt Count Neut % (Auto) Lymph % (Auto) [place] % (Auto) Eos % (Auto) Baso % (Auto) Neut # (Auto) Lymph # (Auto) [place] # (Auto) Eos # (Auto) Baso # (Auto) Sodium Potassium Chloride Carbon Dioxide BUN Creatinine Estimated GFR BUN/Creatinine Ratio Glucose Calcium Total Bilirubin Conjugated Bilirubin Unconjugated Bilirubin AST ALT Alkaline Phosphatase Total Protein Albumin Globulin Albumin/Globulin Ratio Lipase Urine Color Yellow Urine Appearance Slightly cloudy Urine pH 8.5 H Ur Specific [place] 1.010 Urine Protein 3+ H Urine Glucose (UA) Negative Urine Ketones 1+ H Urine Occult Blood 1+ H Urine Nitrate Negative Urine Bilirubin Negative Urine Urobilinogen 0.2 Ur Leukocyte Esterase Negative Urine RBC 1-5/hpf Urine WBC None seen Ur Squamous Epith Cells 1-5 /hpf Amorphous Sediment 2+ Urine Bacteria Few (2-10) H Urine Mucus 1+ H Ur Culture Indicated? Cult not indicated U Opiates 300ng/mL cut Ur Oxycodone Screen Urine Methadone Screen Ur Barbiturates Screen U Tricyclic Antidepress Ur Phencyclidine Scrn Ur Amphetamines Screen U Methamphetamines Scrn Ur MDMA Scrn (Ecstasy) U Benzodiazepines Scrn Urine Cocaine Screen U Marijuana (THC) Screen SARS-CoV-2 (PCR) Negative Blood Type O Positive Antibody Screen Negative 02/12/22 02/13/22 02/13/22 21:15 00:40 06:34 WBC 6.0 RBC 4.04 Hgb 12.8 Hct 38.3 MCV 94.8 MCH 31.7 MCHC 33.5 RDW 13.4 Plt Count 224 Neut % (Auto) 72.9 Lymph % (Auto) 19.2 L [place] % (Auto) 7.5 Eos % (Auto) 0.0 L Baso % (Auto) 0.4 Neut # (Auto) 4300 Lymph # (Auto) 1100 [place] # (Auto) 400 Eos # (Auto) 0 Baso # (Auto) 0 Sodium 139 Potassium 3.9 Chloride 107 Carbon Dioxide 25 BUN 12 Creatinine 0.62 Estimated GFR > 60.0 BUN/Creatinine Ratio 19.4 Glucose 134 H Calcium 8.4 Total Bilirubin Conjugated Bilirubin Unconjugated Bilirubin AST ALT Alkaline Phosphatase Total Protein Albumin Globulin Albumin/Globulin Ratio Lipase Urine Color Urine Appearance Urine pH Ur Specific [place] Urine Protein Urine Glucose (UA) Urine Ketones Urine Occult Blood Urine Nitrate Urine Bilirubin Urine Urobilinogen Ur Leukocyte Esterase Urine RBC Urine WBC Ur Squamous Epith Cells Amorphous Sediment Urine Bacteria Urine Mucus Ur Culture Indicated? U Opiates 300ng/mL cut Negative Ur Oxycodone Screen Negative Urine Methadone Screen Negative Ur Barbiturates Screen Negative U Tricyclic Antidepress Negative Ur Phencyclidine Scrn Negative Ur Amphetamines Screen Negative U Methamphetamines Scrn Negative Ur MDMA Scrn (Ecstasy) Negative U Benzodiazepines Scrn Negative Urine Cocaine Screen Positive H U Marijuana (THC) Screen Positive H SARS-CoV-2 (PCR) Blood Type Antibody Screen 02/13/22 06:34 WBC RBC Hgb Hct MCV MCH MCHC RDW Plt Count Neut % (Auto) Lymph % (Auto) [place] % (Auto) Eos % (Auto) Baso % (Auto) Neut # (Auto) Lymph # (Auto) [place] # (Auto) Eos # (Auto) Baso # (Auto) Sodium Potassium Chloride Carbon Dioxide BUN Creatinine Estimated GFR BUN/Creatinine Ratio Glucose Calcium Total Bilirubin 0.8 Conjugated Bilirubin 0.0 Unconjugated Bilirubin 0.8 AST 26 ALT 15 Alkaline Phosphatase 73 Total Protein 7.8 Albumin 4.4 Globulin 3.4 Albumin/Globulin Ratio 1.3 Lipase Urine Color Urine Appearance Urine pH Ur Specific [place] Urine Protein Urine Glucose (UA) Urine Ketones Urine Occult Blood Urine Nitrate Urine Bilirubin Urine Urobilinogen Ur Leukocyte Esterase Urine RBC Urine WBC Ur Squamous Epith Cells Amorphous Sediment Urine Bacteria Urine Mucus Ur Culture Indicated? U Opiates 300ng/mL cut Ur Oxycodone Screen Urine Methadone Screen Ur Barbiturates Screen U Tricyclic Antidepress Ur Phencyclidine Scrn Ur Amphetamines Screen U Methamphetamines Scrn Ur MDMA Scrn (Ecstasy) U Benzodiazepines Scrn Urine Cocaine Screen U Marijuana (THC) Screen SARS-CoV-2 (PCR) Blood Type Antibody Screen [facility] Medical History (Updated 02/13/22 @ 00:31 by PIPO Brownlee) Abscess Chronic abdominal pain Cyclic vomiting syndrome Family history of angioedema Marijuana use, continuous MRSA (methicillin resistant staph aureus) culture positive Pancreatitis Surgical History (Updated 02/13/22 @ 00:31 by PIPO Brownlee) Hx of appendectomy Hx of cholecystectomy Family History Father Hypertension Mother Diabetes mellitus Daughter Angio-edema Other Colon cancer Social History household members: spouse Smoking Status: Current every day smoker Discharge Assessment & Plan Assessment and Plan Assessment: 1. Angioedema, improved 2. Cyclic vomiting Plan of Treatment: Discharge home Discharge Plan Discharge Plan Patient Disposition: Home Discharge orders & Medications Prescriptions: New lorazepam [Ativan] 0.5 mg tablet 0.5 mg PO DAILY PRN (Reason: nausea and vomiting) Qty: 10 0RF Continued ondansetron 4 mg tablet,disintegrating 4 mg PO Q8H PRN (Reason: nausea and vomiting) Qty: 10 0RF ondansetron 8 mg tablet,disintegrating 8 mg PO TID PRN (Reason: Nausea) 0RF Label Comments: dissolve 1 tablet by mouth up to three times a day sumatriptan 5 mg/actuation spray,non-aerosol 5 mg intranasal Q2-4H PRN (Reason: migraine headache) Qty: 1 0RF Rx Instructions: into each nostril once; if abdominal migraine remains, may repeat total dose once after at least 2 hours Follow up/Referrals: Joanna Storm MD [Primary Care Provider] - Discharge Health Status Multidrug resistant organism: No MDRO Diet/Activity/Treatments Diet: Diet as Tolerated Visit Report/Discharge Packet Instructions: DI for Dehydration -- Adult, DI for Hyperemesis Gravidarum Discharge Data Primary Care Provider: Joanna Storm Attending Provider: Malorie Hernández VTE Deep Vein Thrombosis/Pulmonary Embolism Present on Admission: No
[2022-02-13 13:00] VITALS: BP 143/96; PULSE 66; RESP 18; TEMP 36.9; O2SAT 100
--- NOTE | 2022-02-13 15:10 | PC.NURSE ---
Pt received lying in bed sleeping, easily awakened and c/o of stomach upset but drifts back to sleep. Continuous monitoring, allowed to rest. She is kept NPO per orders with IVF NS at 100 ml/hr. She awakens and c/o of nausea and a swollen tongue during the morning, however it resolves and she reports her tongue feels like it has returned to normal. She reports her tongue feeling painful when it is swollen but at time of her discharge this afternoon reports nausea and pain have resolved. She ambulates with a steady gait. VSS, afebrile on RA. Her is notified of clearance per MD for discharge home this afternoon, with PRN ativan. He arrives at approximately 1430. Both spouse and patient verbalize understanding of discharge recommendations and are in aggreement with plan of care. She is escorted to private vehicle with at 1440 via w/ch with all or her belongings and prescription for lorazepam this afternoon at approximately 1440.
[2022-02-14 03:43] LABS: Complement C3 112 mg/dL (82-167)
[2022-02-16 14:26] LABS: C1 Esterase Inhibitor 26 mg/dL (21-39)
== END 2022-02-13 14:40 | disposition home or self-care (01) ==
LOC: ED 22:07 → AC 22:21
PROVIDERS: Emergency Medicine; Physician Assistant; Admitting Provider Nurse Practitioner Family; Emergency Provider Emergency Medicine; Family Provider Internal Medicine; PCP Internal Medicine; Visit Provider Nurse Practitioner Family
DX: T78.3XXA Angioneurotic edema, initial encounter (principal); R11.15 Cyclical vomiting syndrome unrelated to migraine; E87.6 Hypokalemia; F17.200 Nicotine dependence, unspecified, uncomplicated; E86.0 Dehydration; Z20.822 Contact with and (suspected) exposure to COVID-19
CPT/HCPCS: 36415; 74176; 80048; 80053; 80076; 80305; 81001; 83690; 85025; 86160; 86850; 86900; 86901; 86927; 87635; 94760; 96361; 96365; 96366; 96372; 96375; 96376; 99284; 99291; C9803; G0378; J0171; J1200; J1630; J1650; J2060; J2405; J2930

== ENCOUNTER 2022-06-30 03:42 | Inpatient (IN) | payer BC, SELFPAY ==
[2022-02-12 23:30] VITALS: BMI 19.5
[2022-06-30] VITALS (19 sets, daily range): BP systolic 103–139; BP diastolic 65–94; PULSE 63–99; RESP 16–29; TEMP 36.5–36.9; O2SAT 93–100; BMI 20.4
--- NOTE | 2022-06-30 04:42 | ED.NAVMDI ---
HPI - Nausea/Vomiting/Diarrhea General Chief complaint: Nausea/Vomiting/Diarrhea Stated complaint: Vomiting, SOB, numbness in hands Time Seen by Provider: 06/30/22 04:19 Source: patient Mode of arrival: Wheelchair History of Present Illness HPI Narrative: 46-year-old female with history of cyclic vomiting and abdominal migraines presents under similar circumstances complaining of generalized abdominal pain and frequent vomiting over the past 2 days despite the use of her home Zofran and suppository. She has terrible appetite and states that over the course of the day she is developed cramping and tingling in her hands which is not normal for her. She denies any new medications or change in her diet. She denies any recent travel. Related Data Home Medications Medication Instructions Recorded Confirmed ondansetron 8 mg disintegrating 8 mg PO TID PRN Nausea 12/29/19 12/06/21 tablet Previous Rx's Medication Instructions Recorded ondansetron 4 mg disintegrating 4 mg PO Q8H PRN nausea and 11/07/19 tablet vomiting #10 tabs sumatriptan 5 mg/actuation nasal 5 mg intranasal Q2-4H PRN migraine 09/14/21 spray headache #1 ea lorazepam 0.5 mg tablet (Ativan) 0.5 mg PO DAILY PRN nausea and 02/13/22 vomiting #10 tabs Allergies Allergy/AdvReac Type Severity Reaction Status Date / Time promethazine [PROMETHAZINE] Allergy Mild ERYTHEMA Verified 12/06/21 15:49 TO IV SITE PT STATES ABLE TO TAKE AK latex [LATEX] Allergy Unknown Verified 02/12/22 15:46 metoclopramide AdvReac Unknown DYSTONIA Verified 02/12/22 15:46 [METOCLOPRAMIDE] Review of Systems Review of Systems Narrative: GENERAL: Denies chills, fatigue, malaise, fever, sweats. HEENT: Denies sinus pain, ear pain, sore throat, difficulty swallowing, dizziness. RESPIRATORY: Denies dyspnea, cough, wheezing, hemoptysis, sputum. CARDIOVASCULAR: Denies chest pain, palpitations, orthopnea, edema, GASTROINTESTINAL: See HPI : Denies dysuria, frequency, incontinence, hematuria, urinary retention. MUSCULOSKELETAL: denies weakness, joint pain, or bony pain SKIN: Denies rash, skin lesions, or other NEUROLOGIC: Denies weakness, headache, numbness, change in speech, confusion, seizures, incoordination. PSYCHIATRIC: No concerning psychosocial issues. 12 point review of systems is negative except for those stated above Patient History Medical History Abscess Chronic abdominal pain Cyclic vomiting syndrome Family history of angioedema Marijuana use, continuous MRSA (methicillin resistant staph aureus) culture positive Pancreatitis Surgical History Hx of appendectomy Hx of cholecystectomy Family History Father Hypertension Mother Diabetes mellitus Daughter Angio-edema Other Colon cancer Social History household members: spouse Smoking Status: Current every day smoker Smoking Status: Current every day smoker tobacco type: vaping alcohol intake frequency: 3 or more drinks per day Alcohol type: wine Substance Use Type: marijuana Exam Narrative Exam Narrative: GENERAL: [46] year old patient appears stated age. Well-developed patient, in moderate distress, lying on her side holding an emesis bag, clearly feeling unwell HEAD: Atraumatic. Normocephalic. EYES: Pupils equal round and reactive. Extraocular motions intact. No scleral icterus. No injection or drainage. ENT: Dry mucous membranes Nose without bleeding, purulent drainage. Throat without erythema, tonsillar hypertrophy or exudate. Airway patent. NECK: Trachea midline. Non tender CARDIOVASCULAR: Regular rate and rhythm without murmurs, gallops, or rubs. RESPIRATORY: Clear to auscultation. Breath sounds equal bilaterally. No wheezes, rales, or rhonchi. GASTROINTESTINAL: Abdomen soft, generalized abdominal pain, nondistended. Bowel sounds present in all 4 quadrants EXTREMITIES: No edema or joint tenderness. BACK: Nontender without deformity or crepitance. No flank tenderness. NEURO: AOx3. SKIN: No rash or erythema of visible areas Initial Vital Signs Initial Vital Signs: Vital Signs Temperature 98.5 F 06/30/22 04:13 Pulse Rate 99 H 06/30/22 04:13 Respiratory Rate 18 06/30/22 04:13 Blood Pressure 135/94 H 06/30/22 04:13 Pulse Oximetry 100 06/30/22 04:13 Oxygen Delivery Method 06/30/22 04:13 Course Orders Ordered: ED Orders 06/30/22 Procalcitonin Urgent 06/30/22 04:40 CBC Auto Diff [Complete Blood Count AUTO DIFF] Stat CMP [Comprehensive Metabolic Panel] Stat Ketones (Beta-Hydroxybutyrate) Stat 06/30/22 05:30 COVID19 -Nasal RAPID/Pre-Proc Stat 06/30/22 05:44 VBG [Venous Blood Gas] Stat 06/30/22 05:45 Lactate (Lactic Acid) Stat 06/30/22 06:10 Education, smoking cessation ONGOING 06/30/22 06:19 NT-proBNP (BNP-Adult 18+) Urgent 06/30/22 06:20 Magnesium Urgent Urinalysis and Microscopic Urgent 06/30/22 06:21 A1C [Hemoglobin A1C% w Est Avg Glu] Urgent ETOH [Ethanol (ETOH)] Urgent 06/30/22 06:23 tox [Urine Drug Screen, Rapid] Stat 06/30/22 09:00 XR chest 2V Urgent 07/01/22 05:00 Complete Blood Count AUTO DIFF DAILY Comprehensive Metabolic Panel DAILY 07/02/22 05:00 Complete Blood Count AUTO DIFF DAILY Comprehensive Metabolic Panel DAILY Diphenhydramine HCl (Diphenhydramine 25 Mg Tablet) 25 mg PO Q6HR PRN PRN Reason: Nausea And Vomiting Enoxaparin Sodium (Enoxaparin 30 Mg/0.3 Ml Syringe) 30 mg SUBCUT DAILY LINDA POTASSIUM CHLORIDE IN WATER (Potassium Cl 10 Meq/100 Ml Megan) 10 meq in 100 mls @ 100 mls/hr IV Q1H LINDA Stop: 06/30/22 11:14 Last Admin: 06/30/22 05:28 Dose: 100 mls/hr Documented By: KMW Lactated Ringer's (Lactated Ringers) 1,000 mls @ 100 mls/hr IV CONT LINDA Ondansetron HCl (Ondansetron 4 Mg/2 Ml Inj) 4 mg IV Q4HR LINDA Discontinued Medications Haloperidol (Haloperidol 5 Mg/Ml Vial) 5 mg IV NOW ONE Stop: 06/30/22 04:53 Last Admin: 06/30/22 05:01 Dose: 5 mg Documented By: CHARLES Vital Signs Vital signs: Vital Signs - 8 hr 06/30/22 04:13 Temperature 98.5 F Pulse Rate 99 H Respiratory Rate 18 Blood Pressure 135/94 H Pulse Oximetry 100 Oxygen Delivery Method Room Air MDM - Nausea/Vomiting/Diarrhea Lab Data Result diagrams: 06/30/22 04:40 06/30/22 04:40 Labs: Lab Results 06/30/22 06/30/22 06/30/22 Range/Units 04:40 04:40 04:40 WBC 12.0 H (4.5-11.0) X10^3/uL RBC 4.86 (4.0-5.2) X10^6/uL Hgb 15.3 (12.0-16.0) g/dL Hct 44.5 (36-46) % MCV 91.7 (80-100) fL MCH 31.6 (26-34) PG MCHC 34.4 (30-36) % RDW 13.7 (11.6-14.8) % Plt Count 273 (150-400) X10^3/uL Neut % (Auto) 83.2 H (50-75) % Lymph % (Auto) 8.1 L (25-40) % [place] % (Auto) 8.3 (3-14) % Eos % (Auto) 0.0 L (2-4) % Baso % (Auto) 0.4 (0-2) % Neut # (Auto) 30335 H (7926-3164) /uL Lymph # (Auto) 1000 L (6463-7376) /uL [place] # (Auto) 1000 H (0-900) /uL Eos # (Auto) 0 (0-450) /uL Baso # (Auto) 0 (0-100) /uL VBG pH (7.33-7.43) VBG pCO2 (45-50) mmHg VBG pO2 (35-45) mmHg VBG HCO3 (23-28) mmol/L VBG Total CO2 (24-29) mmol/L VBG O2 Saturation (70-75) % VBG Base Excess (0-4) mmol/L Sodium 142 (137-145) mmol/L Potassium 2.6 L* (3.4-5.1) mmol/L Chloride 83 L (98-107) mmol/L Carbon Dioxide 33 H (22-32) mmol/L BUN 22 H (7-17) mg/dL Creatinine 1.99 H (0.52-1.04) mg/dL Estimated GFR 30 L (>60) mL/min BUN/Creatinine Ratio 11.1 (6-22) Glucose 142 H (70-100) mg/dL Lactate (0.7-2.1) mmol/L Calcium 10.9 H (8.4-10.2) mg/dL Total Bilirubin 1.7 H (0.2-1.3) mg/dL AST 39 H (14-36) IU/L ALT 36 H (<35) IU/L Alkaline Phosphatase 87 (38-126) U/L Total Protein 11.0 H (6.3-8.2) g/dL Albumin 5.8 H (3.5-5.0) g/dL Globulin 5.2 H (1.7-4.1) g/dL Albumin/Globulin Ratio 1.1 (1.0-2.8) Ketones 0.17 (<0.27) mmol/L SARS-CoV-2 (PCR) (Negative) 06/30/22 06/30/22 06/30/22 Range/Units 05:30 05:44 05:45 WBC (4.5-11.0) X10^3/uL RBC (4.0-5.2) X10^6/uL Hgb (12.0-16.0) g/dL Hct (36-46) % MCV (80-100) fL MCH (26-34) PG MCHC (30-36) % RDW (11.6-14.8) % Plt Count (150-400) X10^3/uL Neut % (Auto) (50-75) % Lymph % (Auto) (25-40) % [place] % (Auto) (3-14) % Eos % (Auto) (2-4) % Baso % (Auto) (0-2) % Neut # (Auto) (7069-5299) /uL Lymph # (Auto) (2227-2251) /uL [place] # (Auto) (0-900) /uL Eos # (Auto) (0-450) /uL Baso # (Auto) (0-100) /uL VBG pH 7.60 H (7.33-7.43) VBG pCO2 45.0 (45-50) mmHg VBG pO2 52 H (35-45) mmHg VBG HCO3 44 H (23-28) mmol/L VBG Total CO2 46 H (24-29) mmol/L VBG O2 Saturation 91 H (70-75) % VBG Base Excess 23.0 H (0-4) mmol/L Sodium (137-145) mmol/L Potassium (3.4-5.1) mmol/L Chloride (98-107) mmol/L Carbon Dioxide (22-32) mmol/L BUN (7-17) mg/dL Creatinine (0.52-1.04) mg/dL Estimated GFR (>60) mL/min BUN/Creatinine Ratio (6-22) Glucose (70-100) mg/dL Lactate 2.2 H (0.7-2.1) mmol/L Calcium (8.4-10.2) mg/dL Total Bilirubin (0.2-1.3) mg/dL AST (14-36) IU/L ALT (<35) IU/L Alkaline Phosphatase (38-126) U/L Total Protein (6.3-8.2) g/dL Albumin (3.5-5.0) g/dL Globulin (1.7-4.1) g/dL Albumin/Globulin Ratio (1.0-2.8) Ketones (<0.27) mmol/L SARS-CoV-2 (PCR) Negative (Negative) MDM Narrative Medical decision making narrative: 38-year-old female with history of cyclic vomiting and abdominal migraines presents with 2 days of significant vomiting. She is found to be significantly dehydrated on physical exam, confirmed by a bump in creatinine to 1.99 from her baseline of normal and potassium down to 2.6. Discharge Plan Departure Patient Disposition: Admitted As Inpatient Clinical Impression: Nausea and vomiting, Cyclic vomiting syndrome, Acute hypokalemia, Acute kidney injury
[2022-06-30 04:50] LABS: Add Manual Diff / Slide Review NO; Basophils Absolute Auto 0 /uL (0-100); Basophils Percent Auto 0.4 % (0-2); Eosinophils Absolute Auto 0 /uL (0-450); Hematocrit 44.5 % (36-46); Hemoglobin 15.3 g/dL (12.0-16.0); Lymphocytes Absolute Auto 1000 /uL (1100-4500); Lymphocytes Percent Auto 8.1 % (25-40); Mean Corpuscular HGB Conc 34.4 % (30-36); Mean Corpuscular Hemoglobin 31.6 PG (26-34); Mean Corpuscular Volume 91.7 fL (80-100); Monocytes Absolute Auto 1000 /uL (0-900); Monocytes Percent Auto 8.3 % (3-14); Neutrophils Absolute Auto 10000 /uL (1500-7000); Neutrophils Percent Auto 83.2 % (50-75); Platelet Count 273 X10^3/uL (150-400); Red Blood Cell Count 4.86 X10^6/uL (4.0-5.2); Red Cell Distribution Width 13.7 % (11.6-14.8)
[2022-06-30 04:59] LABS: Albumin 5.8 g/dL (3.5-5.0); Albumin Globulin Ratio 1.1 (1.0-2.8); Alkaline Phosphatase 87 U/L (38-126); BUN Creatinine Ratio 11.1 (6-22); Bilirubin Total 1.7 mg/dL (0.2-1.3); Blood Urea Nitrogen 22 mg/dL (7-17); Calcium 10.9 mg/dL (8.4-10.2); Carbon Dioxide 33 mmol/L (22-32); Chloride 83 mmol/L (98-107); Estimated Glomerular Filt Rate 30 mL/min (>60); Globulin 5.2 g/dL (1.7-4.1); Glucose 142 mg/dL (70-100); HEMOLYSIS < 15 (0-50); Sodium 142 mmol/L (137-145)
[2022-06-30] MEDS: HALOPERIDOL 5 MG/ML VIAL IV (05:01)
[2022-06-30 05:05] LABS: Alanine Aminotransferase 36 IU/L (<35); Aspartate Aminotransferase 39 IU/L (14-36)
[2022-06-30 05:06] LABS: Potassium 2.6 mmol/L (3.4-5.1)
[2022-06-30] MEDS: POTASSIUM CHLORIDE IN WATER 10 MEQ/100 ML PIGGYBACK 100 MEQ IV ×6 (05:28→15:43)
[2022-06-30 05:56] LABS: HCO3 VBG 44 mmol/L (23-28); Oxygen Saturation VBG 91 % (70-75); PO2 VBG 52 mmHg (35-45); Total CO2 VBG 46 mmol/L (24-29)
[2022-06-30 06:04] LABS: COVID19 -Nasal RAPID Negative (Negative)
[2022-06-30 06:13] LABS: Lactate (Lactic Acid) 2.2 mmol/L (0.7-2.1)
[2022-06-30 06:15] LABS: Ketones (Beta-Hydroxybutyrate) 0.17 mmol/L (<0.27)
--- NOTE | 2022-06-30 06:47 | P.HP_ITS ---
History of Present Illness History of Present Illness Date Patient Seen: 06/30/22 Time Patient Seen: 06:47 Chief complaint: Vomiting, SOB Narrative: Rhonda Yadav is a 46-year-old female with history of cyclic vomiting and abdominal migraines presents under similar circumstances complaining of generalized abdominal pain and frequent vomiting over the past 2 days despite the use of her home Zofran and suppository.? She has terrible appetite and states that over the course of the day she is developed cramping and tingling in her hands which is not normal for her.? She denies any new medications or change in her diet.? She denies any recent travel. Patient denies chest pain, shortness of breath, upper respiratory symptoms, fever, body aches, chills, recent illness, or exposure, blood in her vomit, blood in urine blood in stool, bowel or bladder issues, recent illness injury or trauma. Patient does endorse urinary urgency and frequency. On admit patient presents afebrile temp 98.5?, BP 135/94, HR 99, RR 18, O2 saturation 100% on room air. Patient presents with respiratory and metabolic alkalosis- VBG is pH 7.6, CO2 45, PO2 52, HC03 44, O2 saturation 91%, base excess 23 patient does have a white count of 12 with a left shift neutrophils 10,000, monitor feels 1000. Patient has MARCELLA chloride 83, hypokalemia potassium 2.6, bicarb 33, creatinine 1.99, glucose 142, GFR of 30. 02/13/2022 patient's GFR>60, creatinine 0.62. Patient's total protein 11, globulin 5.2, albumin 5.8, lactate 2.2 patient has a gap of 26, calcium is 10.9, total bili 1.7, AST 39, ALT 36, ketones are negative. Patient is admitted for cyclic nausea and vomiting with respiratory metabolic alkalosis, MARCELLA and hypokalemia. Patient History Medical History Abscess Chronic abdominal pain Cyclic vomiting syndrome Family history of angioedema Marijuana use, continuous MRSA (methicillin resistant staph aureus) culture positive Pancreatitis Surgical History Hx of appendectomy Hx of cholecystectomy Family & Social History Family History Father Hypertension Mother Diabetes mellitus Daughter Angio-edema Other Colon cancer Social History: household members spouse Safety & Behavioral: Feels Safe in Current Yes Environment Tobacco & Substance use: Smoking Status Current every day smoker alcohol intake frequency 3 or more drinks per day Substance Use Type marijuana Meds Home Medications and Allergies Home Medications Medication Instructions Recorded Confirmed Type ondansetron 4 mg disintegrating 4 mg PO Q8H PRN nausea and 11/07/19 12/06/21 Rx tablet vomiting #10 tabs ondansetron 8 mg disintegrating 8 mg PO TID PRN Nausea 12/29/19 12/06/21 History tablet sumatriptan 5 mg/actuation nasal 5 mg intranasal Q2-4H PRN migraine 09/14/21 12/06/21 Rx spray headache #1 ea lorazepam 0.5 mg tablet (Ativan) 0.5 mg PO DAILY PRN nausea and 02/13/22 Rx vomiting #10 tabs Allergies Allergy/AdvReac Type Severity Reaction Status Date / Time promethazine [PROMETHAZINE] Allergy Mild ERYTHEMA Verified 12/06/21 15:49 TO IV SITE PT STATES ABLE TO TAKE MA latex [LATEX] Allergy Unknown Verified 02/12/22 15:46 metoclopramide AdvReac Unknown DYSTONIA Verified 02/12/22 15:46 [METOCLOPRAMIDE] Review of Systems Review of Systems Narrative: All 12 point systems reviewed with the patient and are negative except otherwise documented. Exam Vital Signs (past 8 hours): - 06/30/22 04:13 Temperature 98.5 F Pulse Rate 99 H Respiratory Rate 18 Blood Pressure 135/94 H Pulse Oximetry 100 Oxygen Delivery Method Room Air Oxygen Delivery Method Room Air Narrative Exam Narrative: GENERAL: [46] year old patient appears stated age. Well-developed patient, in moderate distress, lying on her side holding an emesis bag, clearly feeling unwell HEAD: Atraumatic. Normocephalic. EYES: Pupils equal round and reactive. Extraocular motions intact. No scleral icterus. No injection or drainage. ENT:? Dry mucous membranes Nose without bleeding, purulent drainage. Throat without erythema, tonsillar hypertrophy or exudate. Airway patent. NECK: Trachea midline. Non tender CARDIOVASCULAR: Regular rate and rhythm without murmurs, gallops, or rubs. RESPIRATORY: Clear to auscultation. Breath sounds equal bilaterally. No wheezes, rales, or rhonchi.? GASTROINTESTINAL: Abdomen soft, generalized abdominal pain, nondistended.? Bowel sounds present in all 4 quadrants EXTREMITIES: No edema or joint tenderness. BACK: Nontender without deformity or crepitance. No flank tenderness. NEURO: AOx3. SKIN: No rash or erythema of visible areas Objective Labs Result Diagrams: 06/30/22 04:40 06/30/22 04:40 Labs: Laboratory Results - last 24 hr 06/30/22 06/30/22 06/30/22 04:40 04:40 04:40 WBC 12.0 H RBC 4.86 Hgb 15.3 Hct 44.5 MCV 91.7 MCH 31.6 MCHC 34.4 RDW 13.7 Plt Count 273 Neut % (Auto) 83.2 H Lymph % (Auto) 8.1 L [place] % (Auto) 8.3 Eos % (Auto) 0.0 L Baso % (Auto) 0.4 Neut # (Auto) 97951 H Lymph # (Auto) 1000 L [place] # (Auto) 1000 H Eos # (Auto) 0 Baso # (Auto) 0 VBG pH VBG pCO2 VBG pO2 VBG HCO3 VBG Total CO2 VBG O2 Saturation VBG Base Excess Sodium 142 Potassium 2.6 L* Chloride 83 L Carbon Dioxide 33 H BUN 22 H Creatinine 1.99 H Estimated GFR 30 L BUN/Creatinine Ratio 11.1 Glucose 142 H Lactate Calcium 10.9 H Total Bilirubin 1.7 H AST 39 H ALT 36 H Alkaline Phosphatase 87 Total Protein 11.0 H Albumin 5.8 H Globulin 5.2 H Albumin/Globulin Ratio 1.1 Ketones 0.17 SARS-CoV-2 (PCR) 06/30/22 06/30/22 06/30/22 05:30 05:44 05:45 WBC RBC Hgb Hct MCV MCH MCHC RDW Plt Count Neut % (Auto) Lymph % (Auto) [place] % (Auto) Eos % (Auto) Baso % (Auto) Neut # (Auto) Lymph # (Auto) [place] # (Auto) Eos # (Auto) Baso # (Auto) VBG pH 7.60 H VBG pCO2 45.0 VBG pO2 52 H VBG HCO3 44 H VBG Total CO2 46 H VBG O2 Saturation 91 H VBG Base Excess 23.0 H Sodium Potassium Chloride Carbon Dioxide BUN Creatinine Estimated GFR BUN/Creatinine Ratio Glucose Lactate 2.2 H Calcium Total Bilirubin AST ALT Alkaline Phosphatase Total Protein Albumin Globulin Albumin/Globulin Ratio Ketones SARS-CoV-2 (PCR) Negative Assessment & Plan Assessment & Plan narrative: Rhonda Yadav is a 46-year-old female with history of cyclic vomiting and abdominal migraines being admitted for respiratory metabolic alkalosis secondary to cyclic vomiting, resulting in MARCELLA and hypokalemia. 1. 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 -abuse BC of 12 neutrophils 10,000, mono feels 1000, lactate 2.2, ordered chest x-ray and UA -patient NPO may progress to clear liquids and advance as tolerated once vomiting has ceased. -Zofran Haldol and Ativan to control vomiting -LR at 100 cc HR for hydration -monitor labs 2. MARCELLA as a result of cyclic vomiting, with leukocytosis, acute, present on admission -02/13/2022 GFR> 60, creatinine 0.62-today creatinine 1.99 GFR 30 -and has for hydration, ordered Mag, BMP lipase urine tox 3. Hypokalemia, acute, present on admission likely secondary to cyclic vomiting -potassium replacement ordered -trend potassium Code status: Full Surrogate decision maker: Narendra REYES PCR:Negative DVT/VTE prophylaxis: Lovenox and SCDs Disposition: Patient admitted for observation hydration and correction MARCELLA respiratory and metabolic alkalosis and hypokalemia expected length of stay less than 2 midnights I have utilized all available immediate resources to obtain, update, or review the patient's current medications. I confirmed that the patient's advanced care plan is present, Code status is documented and/or surrogate decision maker is listed in the patient's medical record. Time Spent With Patient Critical Care time: I spent a total of [] minutes of critical care time on this patient's care today; this time is exclusive of procedural time.
[2022-06-30 06:52] LABS: Hemoglobin A1C% w Est Avg Glu 5.4 % (4.0-6.0)
[2022-06-30 07:01] LABS: Ethanol (ETOH) < 10 mg/dL; Procalcitonin 0.13 ng/mL (<0.5)
[2022-06-30 07:21] LABS: NT-proBNP (BNP-Adult 18+) 2030 pg/mL (<125)
[2022-06-30 07:50] LABS: Reflexed Lactate in 2 Hours Y
[2022-06-30] MEDS: POTASSIUM CHLORIDE IN WATER 10 MEQ/100 ML PIGGYBACK 75 MEQ IV (08:35)
--- NOTE | 2022-06-30 09:00 | DI.RAD.S_ITS ---
PROCEDURE: XR CHEST 1V INDICATIONS: Please evaluate for cardiopulmonary infectious process TECHNIQUE: One view of the chest was acquired. COMPARISON: [facility], , CHEST FOR PICC PLACEMENT, 05/04/2012, 14:55. FINDINGS: Surgical changes and devices: None. Lungs and pleura: Lungs are clear. No large pleural effusions or pneumothorax. Mediastinum: Mediastinal contours appear normal. Heart size is normal. Bones and chest wall: No suspicious bony lesions. Overlying soft tissues appear unremarkable. IMPRESSION: No significant portable chest abnormality is seen. Dictated by: Jaime Kapadia M.D. on 06/30/2022 at 9:23 Approved by: Jaime Kapadia M.D. on 06/30/2022 at 9:24
[2022-06-30 09:10] LABS: Lactate 2HR (Lactic Acid Rflx) 1.1 mmol/L (0.7-2.1)
[2022-06-30] MEDS: LACTATED RINGERS 1,000 ML 100 ML IV (11:58)
[2022-06-30] MEDS: diphenhydrAMINE 50 MG/ML VIAL IV (16:18)
[2022-06-30] MEDS: EPINEPHrine 1 MG/ML 0.3 MG IM (16:29)
--- NOTE | 2022-06-30 17:50 | PC.NURSE ---
16:13 Pt had swollen, purple tongue, pt denies shortness of breath. Notified Dr. Salmon in person. Dr. Salmon at the bedside ordered epinephrine and benadryl, see MAR. Epinephrine and benadryl given see MAR.
[2022-06-30 18:25] LABS: BUN Creatinine Ratio 16.3 (6-22); Blood Urea Nitrogen 24 mg/dL (7-17); Carbon Dioxide 34 mmol/L (22-32); Chloride 92 mmol/L (98-107); Estimated Glomerular Filt Rate 44 mL/min (>60); Glucose 120 mg/dL (70-100); HEMOLYSIS 18 (0-50); Potassium 3.6 mmol/L (3.4-5.1); Sodium 136 mmol/L (137-145)
--- NOTE | 2022-06-30 19:00 | PC.NURSE ---
Addendum entered by Tina Allen R.N. 06/30/22 19:53: Pt given solu-medrol, see MAR. Original Note: 18:50 Pt tongue swollen and purple, pt denies shortness of breath. Notified in person and states, will put in a order for solu-medrol.
[2022-06-30] MEDS: methylPREDNISolone 125 MG/2 ML VIAL 60 MG IV ×2 (19:05→20:40)
[2022-06-30 19:35] LABS: Appearance Urine UA CLEAR; Bilirubin Urine UA NEGATIVE (NEGATIVE); Color Urine UA YELLOW; Glucose Urine UA NEGATIVE (Negative); Ketones Urine UA TRACE (NEGATIVE); Leukocyte Esterase Urine UA TRACE (NEGATIVE); Nitrite Urine UA NEGATIVE (Negative); Occult Blood Urine UA 1+ (Negative); Protein Urine UA 3+ (Negative); Specific Gravity Urine UA 1.015 (1.000-1.035); Urobilinogen Urine UA 0.2 E.U./dL (0.2); pH Urine UA 7.5 (4.5-8.0)
[2022-06-30 19:36] LABS: Ur Creatinine Normal (Normal); Ur Specific Gravity Normal (Normal); Urine pH Normal (Normal)
[2022-06-30 19:37] LABS: Urine Cocaine Positive (Negative); Urine Tetrahydrocannabinol Positive (Negative)
[2022-06-30 19:38] LABS: UR Morphine/Opiate cutoff 300 Negative (Negative); Urine Amphetamines Negative (Negative); Urine Barbiturates Negative (Negative); Urine Benzodiazepines Negative (Negative); Urine MDMA Negative (Negative); Urine Methadone Negative (Negative); Urine Methamphetamines Negative (Negative); Urine Oxycodone Negative (Negative); Urine Phencyclidine Negative (Negative); Urine Tricyclic Antidepressant Positive (Negative)
[2022-06-30 19:49] LABS: Amorphous Sediment Urine 1+; Bacteria Urine Few (2-10); Culture Indicated Urine Specimen Cultured; Granular Casts Urine 1-5/LPF; Hyaline Casts Urine 5-10/LPF; Mucus Urine 1+ (Negative); RBC Urine 0-1/HPF (0-5/HPF); Squamous Epithelial Cell Urine 1-5 /HPF (0-5/HPF); WBC Urine 5-10/HPF (0-5/HPF)
[2022-06-30] MEDS: TRANEXAMIC ACID 1,000 MG in SODIUM CHLORIDE 0.9% 100 ML 200 MG IV (21:51)
[2022-07-01] VITALS (16 sets, daily range): BP systolic 95–143; BP diastolic 58–97; PULSE 56–80; RESP 17–18; TEMP 36.2–36.7; O2SAT 93–98
[2022-07-01 06:25] LABS: Add Manual Diff / Slide Review NO; Basophils Absolute Auto 0 /uL (0-100); Basophils Percent Auto 0.3 % (0-2); Eosinophils Absolute Auto 0 /uL (0-450); Hematocrit 38.8 % (36-46); Hemoglobin 13.1 g/dL (12.0-16.0); Lymphocytes Absolute Auto 700 /uL (1100-4500); Lymphocytes Percent Auto 13.9 % (25-40); Mean Corpuscular HGB Conc 33.8 % (30-36); Mean Corpuscular Hemoglobin 31.5 PG (26-34); Mean Corpuscular Volume 92.9 fL (80-100); Monocytes Absolute Auto 200 /uL (0-900); Monocytes Percent Auto 3.4 % (3-14); Neutrophils Absolute Auto 4400 /uL (1500-7000); Neutrophils Percent Auto 82.4 % (50-75); Platelet Count 224 X10^3/uL (150-400); Red Blood Cell Count 4.17 X10^6/uL (4.0-5.2); Red Cell Distribution Width 13.3 % (11.6-14.8); White Blood Cell Count 5.4 X10^3/uL (4.5-11.0)
[2022-07-01 06:31] LABS: Alanine Aminotransferase 15 IU/L (<35); Albumin 4.4 g/dL (3.5-5.0); Albumin Globulin Ratio 1.3 (1.0-2.8); Alkaline Phosphatase 65 U/L (38-126); Aspartate Aminotransferase 26 IU/L (14-36); BUN Creatinine Ratio 19.4 (6-22); Bilirubin Total 1.5 mg/dL (0.2-1.3); Blood Urea Nitrogen 20 mg/dL (7-17); Calcium 8.9 mg/dL (8.4-10.2); Carbon Dioxide 33 mmol/L (22-32); Chloride 92 mmol/L (98-107); Estimated Glomerular Filt Rate > 60 mL/min (>60); Globulin 3.5 g/dL (1.7-4.1); Glucose 161 mg/dL (70-100); HEMOLYSIS < 15 (0-50); Sodium 136 mmol/L (137-145); Total Protein 7.9 g/dL (6.3-8.2)
--- NOTE | 2022-07-01 08:12 | P.PN_ITS ---
Exam Vital Signs (past 8 hours): - 07/01/22 00:15 07/01/22 00:30 07/01/22 00:45 Temperature Pulse Rate 70 72 78 Respiratory Rate Blood Pressure 96/60 95/58 L 116/72 Pulse Oximetry 95 97 97 Oxygen Delivery Method Oxygen Flow Rate 07/01/22 01:00 07/01/22 01:15 07/01/22 01:30 Temperature Pulse Rate 72 62 69 Respiratory Rate Blood Pressure 116/65 113/73 118/77 Pulse Oximetry 96 97 94 Oxygen Delivery Method Oxygen Flow Rate 07/01/22 01:45 07/01/22 02:09 07/01/22 03:14 Temperature 98.1 F Pulse Rate 66 65 66 Respiratory Rate 18 Blood Pressure 108/67 106/66 123/77 Pulse Oximetry 93 94 96 Oxygen Delivery Method Oxygen Flow Rate 07/01/22 02:00 07/01/22 06:00 07/01/22 08:00 Temperature 98.0 F Pulse Rate 72 Respiratory Rate 17 Blood Pressure 128/84 Pulse Oximetry 94 96 97 Oxygen Delivery Method Room Air Room Air Oxygen Flow Rate 0 0 0 Oxygen Delivery Method Room Air Oxygen Flow Rate 0 Narrative Exam Narrative: GENERAL: [46] year old patient appears stated age. Well-developed patient, in moderate distress, lying on her side holding an emesis bag, clearly feeling unwell HEAD: Atraumatic. Normocephalic. EYES: Pupils equal round and reactive. Extraocular motions intact. No scleral icterus. No injection or drainage. ENT:? Dry mucous membranes Nose without bleeding, purulent drainage. Throat without erythema, tonsillar hypertrophy or exudate. Airway patent. NECK: Trachea midline. Non tender CARDIOVASCULAR: Regular rate and rhythm without murmurs, gallops, or rubs. RESPIRATORY: Clear to auscultation. Breath sounds equal bilaterally. No wheezes, rales, or rhonchi.? GASTROINTESTINAL: Abdomen soft, generalized abdominal pain, nondistended.? Bowel sounds present in all 4 quadrants EXTREMITIES: No edema or joint tenderness. BACK: Nontender without deformity or crepitance. No flank tenderness. NEURO: AOx3. SKIN: No rash or erythema of visible areas Objective Labs Result Diagrams: 07/01/22 06:17 07/01/22 06:17 Labs: Laboratory Results - last 24 hr 06/30/22 06/30/22 06/30/22 04:40 08:35 17:57 WBC RBC Hgb Hct MCV MCH MCHC RDW Plt Count Neut % (Auto) Lymph % (Auto) [place] % (Auto) Eos % (Auto) Baso % (Auto) Neut # (Auto) Lymph # (Auto) [place] # (Auto) Eos # (Auto) Baso # (Auto) Sodium 136 L Potassium 3.6 Chloride 92 L Carbon Dioxide 34 H BUN 24 H Creatinine 1.47 H Estimated GFR 44 L BUN/Creatinine Ratio 16.3 Glucose 120 H Lactate 1.1 Calcium 9.0 Total Bilirubin AST ALT Alkaline Phosphatase NT-Pro-B Natriuret Pep 2030 H Total Protein Albumin Globulin Albumin/Globulin Ratio Urine Color Urine Appearance Urine pH Ur Specific Bock Urine Protein Urine Glucose (UA) Urine Ketones Urine Occult Blood Urine Nitrate Urine Bilirubin Urine Urobilinogen Ur Leukocyte Esterase Urine RBC Urine WBC Ur Squamous Epith Cells Amorphous Sediment Urine Bacteria Hyaline Casts Granular Casts Urine Mucus Ur Culture Indicated? U Opiates 300ng/mL cut Ur Oxycodone Screen Urine Methadone Screen Ur Barbiturates Screen U Tricyclic Antidepress Ur Phencyclidine Scrn Ur Amphetamines Screen U Methamphetamines Scrn Ur MDMA Scrn (Ecstasy) U Benzodiazepines Scrn Urine Cocaine Screen U Marijuana (THC) Screen 06/30/22 06/30/22 07/01/22 19:00 19:00 06:17 WBC 5.4 D RBC 4.17 Hgb 13.1 Hct 38.8 MCV 92.9 MCH 31.5 MCHC 33.8 RDW 13.3 Plt Count 224 Neut % (Auto) 82.4 H Lymph % (Auto) 13.9 L Ashley % (Auto) 3.4 Eos % (Auto) 0.0 L Baso % (Auto) 0.3 Neut # (Auto) 4400 Lymph # (Auto) 700 L Ashley # (Auto) 200 Eos # (Auto) 0 Baso # (Auto) 0 Sodium Potassium Chloride Carbon Dioxide BUN Creatinine Estimated GFR BUN/Creatinine Ratio Glucose Lactate Calcium Total Bilirubin AST ALT Alkaline Phosphatase NT-Pro-B Natriuret Pep Total Protein Albumin Globulin Albumin/Globulin Ratio Urine Color Yellow Urine Appearance Clear Urine pH 7.5 Ur Specific Bock 1.015 Urine Protein 3+ H Urine Glucose (UA) Negative Urine Ketones Trace H Urine Occult Blood 1+ H Urine Nitrate Negative Urine Bilirubin Negative Urine Urobilinogen 0.2 Ur Leukocyte Esterase Trace H Urine RBC 0-1/hpf Urine WBC 5-10/hpf H Ur Squamous Epith Cells 1-5 /hpf Amorphous Sediment 1+ Urine Bacteria Few (2-10) H Hyaline Casts 5-10/lpf Granular Casts 1-5/lpf Urine Mucus 1+ H Ur Culture Indicated? Specimen cultured U Opiates 300ng/mL cut Negative Ur Oxycodone Screen Negative Urine Methadone Screen Negative Ur Barbiturates Screen Negative U Tricyclic Antidepress Positive H Ur Phencyclidine Scrn Negative Ur Amphetamines Screen Negative U Methamphetamines Scrn Negative Ur MDMA Scrn (Ecstasy) Negative U Benzodiazepines Scrn Negative Urine Cocaine Screen Positive H U Marijuana (THC) Screen Positive H 07/01/22 06:17 WBC RBC Hgb Hct MCV MCH MCHC RDW Plt Count Neut % (Auto) Lymph % (Auto) [place] % (Auto) Eos % (Auto) Baso % (Auto) Neut # (Auto) Lymph # (Auto) Ashley # (Auto) Eos # (Auto) Baso # (Auto) Sodium 136 L Potassium 3.0 L Chloride 92 L Carbon Dioxide 33 H BUN 20 H Creatinine 1.03 Estimated GFR > 60 BUN/Creatinine Ratio 19.4 Glucose 161 H Lactate Calcium 8.9 Total Bilirubin 1.5 H AST 26 ALT 15 Alkaline Phosphatase 65 NT-Pro-B Natriuret Pep Total Protein 7.9 Albumin 4.4 Globulin 3.5 Albumin/Globulin Ratio 1.3 Urine Color Urine Appearance Urine pH Ur Specific Bock Urine Protein Urine Glucose (UA) Urine Ketones Urine Occult Blood Urine Nitrate Urine Bilirubin Urine Urobilinogen Ur Leukocyte Esterase Urine RBC Urine WBC Ur Squamous Epith Cells Amorphous Sediment Urine Bacteria Hyaline Casts Granular Casts Urine Mucus Ur Culture Indicated? U Opiates 300ng/mL cut Ur Oxycodone Screen Urine Methadone Screen Ur Barbiturates Screen U Tricyclic Antidepress Ur Phencyclidine Scrn Ur Amphetamines Screen U Methamphetamines Scrn Ur MDMA Scrn (Ecstasy) U Benzodiazepines Scrn Urine Cocaine Screen U Marijuana (THC) Screen PFSH Medical History Abscess Chronic abdominal pain Cyclic vomiting syndrome Family history of angioedema Marijuana use, continuous MRSA (methicillin resistant staph aureus) culture positive Pancreatitis Surgical History Hx of appendectomy Hx of cholecystectomy Family History Father Hypertension Mother Diabetes mellitus Daughter Angio-edema Other Colon cancer Social History household members: spouse Smoking Status: Current every day smoker alcohol intake: current Assessment & Plan Assessment & Plan narrative: Rhonda Yadav is a 46-year-old female with history of cyclic vomiting and abdominal migraines being admitted for respiratory metabolic alkalosis secondary to cyclic vomiting, resulting in MARCELLA and hypokalemia. # acute angioedema, not present on admission -patient having intermittent bouts of tongue swelling which will spontaneously resolve. No familial history of angioedema, and not accompanied with pruritis or rash. Not on JETT inhibitor. Says she develops tongue-swelling occasionally since her COVID vaccine. -received epi IM and benadryl, then solu-medrol 60mg IV -daily prednisone 40mg -transexemic acid 1gm given -check C1 esterase and C4 complement labs to rule out hereditary angioedema -monitor for airway compromise # Cyclic vomiting, resulting in respiratory metabolic and respiratory alkalosis, acute, present on admission -he etiology unknown suspected possible hyper cannabis emesis syndrome, though patient may have a underlying infectious disease process as well. -abuse BC of 12 neutrophils 10,000, mono feels 1000, lactate 2.2, ordered chest x-ray and UA -patient NPO may progress to clear liquids and advance as tolerated once vo miting has ceased. -Zofran Haldol and Ativan to control vomiting -LR at 100 cc HR for hydration -monitor labs # MARCELLA as a result of cyclic vomiting, with leukocytosis, resolved -02/13/2022 GFR> 60, creatinine 0.62-today creatinine 1.99 GFR 30 -received IV fluids -Cr and WBC now normal # Hypokalemia, acute, present on admission -likely secondary to cyclic vomiting -start daily potassium 40mg po -daily BMP's Code status: Full Surrogate decision maker: Narendra REYES PCR:Negative DVT/VTE prophylaxis: Lovenox and SCDs Time Spent With Patient Critical Care time: I spent a total of [] minutes of critical care time on this patient's care today; this time is exclusive of procedural time. Quality VTE Deep Vein Thrombosis/Pulmonary Embolism Present on Admission: No
[2022-07-01] MEDS: diphenhydrAMINE 25 MG TABLET PO (08:15)
[2022-07-01] MEDS: ENOXAPARIN 30 MG/0.3 ML SYRINGE SUBCUT (08:15)
[2022-07-01] MEDS: predniSONE 20 MG TABLET 40 MG PO (08:15)
[2022-07-01] MEDS: POTASSIUM CHLORIDE 20 MEQ TAB 40 MEQ PO ×2 (09:00→14:59)
--- NOTE | 2022-07-01 09:00 | DI.ECHO.S_ITS ---
[facility] [place] +---------+ [facility] +---------+ : : [address] : : : : [id number] : : : : Phone: [phone] Echocardiogram Report + + :Name: KOKI CARPIO Study Date: 07/01/2022 Height: 70 in : :[facility] ReadingLocation: Weight: 142 lb : : Gender: Female BSA: 1.8 m2 : :: 1975 Age: 46 yrs BP: 108/67 mmHg: :Reason For Study: ELEVATED BNP, MARCELLA-CHF : :Ordering Physician: DEVI, : :KAY Performed By: Altagracia Berry : :Referring: KAY QUINONEZ : + + Interpretation Summary The left ventricle appears normal in size, wall thickness, and systolic function without any focal wall motion abnormalities. The ejection fraction is estimated to be 55-60%. There are no focal wall motion abnormalities. The right ventricle is normal in size and function. There is mild tricuspid regurgitation. The right ventricular systolic pressure is estimated to be at least 22 mmHg based on an estimated right atrial pressure of 8 mm Hg. Procedure: A two-dimensional transthoracic echocardiogram with color flow and Doppler was performed. The study quality was technically adequate. There is no prior echocardiogram noted for this patient. The patient was in sinus rhythm with heart rates between 60-75 bpm during the exam. Left Ventricle: The left ventricle is normal in size and wall thickness. The left ventricle appears normal in size, wall thickness, and systolic function without any focal wall motion abnormalities. There is no thrombus. The ejection fraction is estimated to be 55-60%. There are no focal wall motion abnormalities. Diastolic parameters suggest probable normal left ventricular diastolic function and normal filling pressures. Right Ventricle: The right ventricle is normal in size and function. Atria: The left atrium is mildly dilated. Right atrial size is normal. There is no Doppler evidence for an interatrial shunt. Mitral Valve: The mitral valve is normal in structure and function. There is trace mitral regurgitation. Aortic Valve: The aortic valve is trileaflet. The aortic valve opens well. There is no aortic valve stenosis. No aortic regurgitation is present. Tricuspid Valve: The tricuspid valve is normal in structure and function. There is mild tricuspid regurgitation. The right ventricular systolic pressure is estimated to be at least 22 mmHg based on an estimated right atrial pressure of 8 mm Hg. Pulmonic Valve: The pulmonic valve leaflets are thin and pliable; valve motion is normal. There is no pulmonic valvular regurgitation. Great Vessels: The aortic root is normal size. The dimensions of the ascending aorta are normal. The IVC is dilated (diameter is greater than 2.1 cm) yet it collapses greater than 50% with a sniff. This suggests a right atrial pressure of 8 mm Hg. Pericardium/ Pleura There is no pericardial effusion. There is no pleural effusion. MMode/2D Measurements & Calculations LVIDd: 4.4 cm LVOT diam: 2.4 cm LVIDs: 2.8 cm Ao root diam: 3.9 cm FS: 36.2 % asc Aorta Diam: 3.2 cm IVSd: 0.94 cm LVPWd: 0.77 cm LV berkowitz. diameter/BSA (cm/m^2): 2.4 LV sys. diameter/BSA (cm/m^2): 1.5 LA A2 area: 18.0 cm2 RA long axis: 4.5 cm LA A4 area: 19.9 cm2 RA area: 13.6 cm2 LA length (vol): 4.8 cm RA vol: 34.9 ml LA vol: 63.7 ml RA : 19.3 ml/m2 LA vol index: 35.3 ml/m2 IVC diam: 2.1 cm RVD1 (basal): 3.5 cm RVD2 (mid): 2.5 cm TAPSE: 2.2 cm Doppler Measurements & Calculations Ao V2 max: 139.9 cm/sec LVOT Max Rashad: 138.4 cm/sec Ao V2 mean: 99.2 cm/sec LV V1 max P.7 mmHg Ao max P.8 mmHg LV V1 VTI: 27.3 cm Ao mean P.4 mmHg DAVID(I,D): 4.2 cm2 Ao V2 VTI: 29.4 cm DAVID(V,D): 4.5 cm2 sev ratio: 0.93 DAVID indexed to BSA (cm^2/m^2): 2.3 MV E max rashad: 65.1 cm/sec TR max rashad: 185.1 cm/sec MV A max rashad: 53.9 cm/sec TR max P.1 mmHg MV E/A: 1.2 PA V2 max: 99.2 cm/sec Med Peak E' Rashad: 11.2 cm/sec PA V2 mean: 69.5 cm/sec E/E' med: 5.8 PA mean P.2 mmHg Lat Peak E' Rashad: 12.9 cm/sec PA pr(Accel): 25.9 mmHg E/E' lat: 5.1 E/e' average: 5.4 MV dec time: 0.29 sec SV(OT): 122.7 ml Reading Physician:12:19 PM
[2022-07-01 12:34] LABS: BUN Creatinine Ratio 19.3 (6-22); Blood Urea Nitrogen 17 mg/dL (7-17); Calcium 9.2 mg/dL (8.4-10.2); Carbon Dioxide 34 mmol/L (22-32); Chloride 95 mmol/L (98-107); Estimated Glomerular Filt Rate > 60 mL/min (>60); Glucose 114 mg/dL (70-100); HEMOLYSIS 27 (0-50); Potassium 3.2 mmol/L (3.4-5.1); Sodium 135 mmol/L (137-145)
[2022-07-01] MEDS: NYSTATIN CREAM 30 GM 1 APPLIC TOP (15:00)
[2022-07-01] MEDS: FLUCONAZOLE 100 MG TABLET 200 MG PO (15:00)
--- NOTE | 2022-07-01 16:50 | PC.NURSE ---
Pt is A&OX3, VSS, afebrile on RA. She complains of tongue feeling swollen but improved and requests to be upgraded to general diet instead of Clear liquids. Pt's last emesis was in ED. Diet upgraded per orders and patient tolerated lunch well. She showers per request, noted rash to L buttock she complains, itches solo and hurts. MD notified and received orders for diflucan and nystatin. Pt given potassium replacement per orders. She complains of pain around the rash and dental pain and medicated with one 5/325 tab percocet per orders. Pt ambulating around the room with steady gait and denies symptoms and is also requesting to discharge home. MD cleared patient for discharge and she verbalizes understanding of all discharge instructions, medications and follow up recommendations. She is escorted at approximately 1530 to exit to private car for discharge home with step father.
--- NOTE | 2022-07-01 18:25 | PM.DS.1 ---
History of Present Illness History of Present Illness Chief complaint: Vomiting, SOB Narrative: Rhonda Yadav is a 46-year-old female with history of cyclic vomiting and abdominal migraines presents under similar circumstances complaining of generalized abdominal pain and frequent vomiting over the past 2 days despite the use of her home Zofran and suppository.? She has terrible appetite and states that over the course of the day she is developed cramping and tingling in her hands which is not normal for her.? She denies any new medications or change in her diet.? She denies any recent travel.? Patient denies chest pain, shortness of breath, upper respiratory symptoms, fever, body aches, chills, recent illness, or exposure, blood in her vomit, blood in urine blood in stool, bowel or bladder issues, recent illness injury or trauma.? Patient does endorse urinary urgency and frequency. On admit patient presents afebrile temp 98.5?, BP 135/94, HR 99, RR 18, O2 saturation 100% on room air.? Patient presents with respiratory and metabolic alkalosis- VBG is pH 7.6, CO2 45, PO2 52, HC03 44, O2 saturation 91%, base excess 23 patient does have a white count of 12 with a left shift neutrophils 10,000, monitor feels 1000.? Patient has MARCELLA chloride 83, hypokalemia potassium 2.6, bicarb 33, creatinine 1.99, glucose 142, GFR of 30.? 02/13/2022 patient's GFR>60, creatinine 0.62.? Patient's total protein 11, globulin 5.2, albumin 5.8, lactate 2.2 patient has a gap of 26, calcium is 10.9, total bili 1.7, AST 39, ALT 36, ketones are negative.? Patient is admitted for cyclic nausea and vomiting with respiratory metabolic alkalosis, MARCELLA and hypokalemia. Addendum: Patient presented with angioedema at approximately 3:00 p.m. this afternoon patient was given initial doses of Benadryl and epinephrine when symptoms did not resolve she was given Solu-Medrol 60mg, symptoms still did not resolve was given secondary dose of Solu-Medrol 60mg? demonstrating resistant to histamine blocking agents.? At approximately 9:30 p.m. ordered Tranexamic Acid 1gram now -will evaluate response. Consult Dr. Hagan in ED, and will notify anesthesiology.? Patient's airway is patent in she is in no respiratory distress at this time and is stable.? Will monitor patient closely. Discharge Providers Provider Date of admission: 06/30/22 06:31 Discharge Date: 07/01/22 Primary care physician: Joanna Storm MD Discharge provider: Hugh Salmon DO Summary Hospital Course Discharge Diagnosis: 1. 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 -abuse BC of 12 neutrophils 10,000, mono feels 1000, lactate 2.2, ordered chest x-ray and UA -patient NPO may progress to clear liquids and advance as tolerated once vomiting has ceased. -Zofran Haldol and Ativan to control vomiting -LR at 100 cc HR for hydration -monitor labs 2. MARCELLA as a result of cyclic vomiting, with leukocytosis, resolved -02/13/2022 GFR> 60, creatinine 0.62-today creatinine 1.99 GFR 30 -Cr lowered to 0.88 and WBC to 5.4 3. Hypokalemia, acute, present on admission likely secondary to cyclic vomiting -initially 2.6 on admission -improved to 3.2 -discharged on daily potassium supplement 4. Acute angioedema, not present on admission -patient had intermittent tongue swelling while admitted, no obvious cause. Not on evelyn inhibitors. She states has been occuring since her COVID vaccine. 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 Perineal rash -patient notes chronic rash to bottom and wrapping around to back of thigh, now very itchy and red. States it was biopsied in past by derm but doesn't know the results. -appears to be fungal rash -discharged on fluconazole 200mg weekly for 4 weeks and topical miconazole BID -instructed patient to return to derm clinic if rash does not improved on antifungals Hospital Course: Patient admitted for NV, MARCELLA and hypokalemia. These all improved however she developed acute onset angioedema with swollen tongue but no airway compromise. Trigger for the edema unclear, as patient not received any offending medications. 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 These labs will not result until after she is discharged so instructed PCP to f/u on them. She also developed a worsening fungal rash in perineum so I sent home on oral fluconazole for 4 weeks and topical miconazole. Instructed her to see derm if it does not improve. Exam Vital Signs (past 8 hours): - 07/01/22 11:53 07/01/22 14:00 Temperature 97.1 F L Pulse Rate 56 L Respiratory Rate 17 Blood Pressure 143/97 H Pulse Oximetry 98 98 Oxygen Delivery Method Room Air Oxygen Flow Rate 0 Oxygen Delivery Method Room Air Oxygen Flow Rate 0 Narrative Exam Narrative: GENERAL: [46] year old patient appears stated age. intermittently tearful. HEAD: Atraumatic. Normocephalic. EYES: Pupils equal round and reactive. Extraocular motions intact. No scleral icterus. No injection or drainage. ENT:? Dry mucous membranes Nose without bleeding, purulent drainage. Tongue currently not swollen, but previously purple and swollen without airway compromise. NECK: Trachea midline. Non tender CARDIOVASCULAR: Regular rate and rhythm without murmurs, gallops, or rubs. RESPIRATORY: Clear to auscultation. Breath sounds equal bilaterally. No wheezes, rales, or rhonchi.? GASTROINTESTINAL: Abdomen soft, generalized abdominal pain, nondistended.? Bowel sounds present in all 4 quadrants EXTREMITIES: No edema or joint tenderness. BACK: Nontender without deformity or crepitance. No flank tenderness. NEURO: AOx3. SKIN: Perineal rash with scaly flaky patches extending from back of L thigh to buttock. Itchy per patient. Objective Labs Result Diagrams: 07/01/22 06:17 07/01/22 12:00 Labs: Laboratory Results - last 24 hr 06/30/22 06/30/22 06/30/22 17:57 19:00 19:00 WBC RBC Hgb Hct MCV MCH MCHC RDW Plt Count Neut % (Auto) Lymph % (Auto) [place] % (Auto) Eos % (Auto) Baso % (Auto) Neut # (Auto) Lymph # (Auto) [place] # (Auto) Eos # (Auto) Baso # (Auto) Sodium 136 L Potassium 3.6 Chloride 92 L Carbon Dioxide 34 H BUN 24 H Creatinine 1.47 H Estimated GFR 44 L BUN/Creatinine Ratio 16.3 Glucose 120 H Calcium 9.0 Total Bilirubin AST ALT Alkaline Phosphatase Total Protein Albumin Globulin Albumin/Globulin Ratio Urine Color Yellow Urine Appearance Clear Urine pH 7.5 Ur Specific [place] 1.015 Urine Protein 3+ H Urine Glucose (UA) Negative Urine Ketones Trace H Urine Occult Blood 1+ H Urine Nitrate Negative Urine Bilirubin Negative Urine Urobilinogen 0.2 Ur Leukocyte Esterase Trace H Urine RBC 0-1/hpf Urine WBC 5-10/hpf H Ur Squamous Epith Cells 1-5 /hpf Amorphous Sediment 1+ Urine Bacteria Few (2-10) H Hyaline Casts 5-10/lpf Granular Casts 1-5/lpf Urine Mucus 1+ H Ur Culture Indicated? Specimen cultured U Opiates 300ng/mL cut Negative Ur Oxycodone Screen Negative Urine Methadone Screen Negative Ur Barbiturates Screen Negative U Tricyclic Antidepress Positive H Ur Phencyclidine Scrn Negative Ur Amphetamines Screen Negative U Methamphetamines Scrn Negative Ur MDMA Scrn (Ecstasy) Negative U Benzodiazepines Scrn Negative Urine Cocaine Screen Positive H U Marijuana (THC) Screen Positive H 07/01/22 07/01/22 07/01/22 06:17 06:17 12:00 WBC 5.4 D RBC 4.17 Hgb 13.1 Hct 38.8 MCV 92.9 MCH 31.5 MCHC 33.8 RDW 13.3 Plt Count 224 Neut % (Auto) 82.4 H Lymph % (Auto) 13.9 L [place] % (Auto) 3.4 Eos % (Auto) 0.0 L Baso % (Auto) 0.3 Neut # (Auto) 4400 Lymph # (Auto) 700 L [place] # (Auto) 200 Eos # (Auto) 0 Baso # (Auto) 0 Sodium 136 L 135 L Potassium 3.0 L 3.2 L Chloride 92 L 95 L Carbon Dioxide 33 H 34 H BUN 20 H 17 Creatinine 1.03 0.88 Estimated GFR > 60 > 60 BUN/Creatinine Ratio 19.4 19.3 Glucose 161 H 114 H Calcium 8.9 9.2 Total Bilirubin 1.5 H AST 26 ALT 15 Alkaline Phosphatase 65 Total Protein 7.9 Albumin 4.4 Globulin 3.5 Albumin/Globulin Ratio 1.3 Urine Color Urine Appearance Urine pH Ur Specific [place] Urine Protein Urine Glucose (UA) Urine Ketones Urine Occult Blood Urine Nitrate Urine Bilirubin Urine Urobilinogen Ur Leukocyte Esterase Urine RBC Urine WBC Ur Squamous Epith Cells Amorphous Sediment Urine Bacteria Hyaline Casts Granular Casts Urine Mucus Ur Culture Indicated? U Opiates 300ng/mL cut Ur Oxycodone Screen Urine Methadone Screen Ur Barbiturates Screen U Tricyclic Antidepress Ur Phencyclidine Scrn Ur Amphetamines Screen U Methamphetamines Scrn Ur MDMA Scrn (Ecstasy) U Benzodiazepines Scrn Urine Cocaine Screen U Marijuana (THC) Screen PFSH Medical History Abscess Chronic abdominal pain Cyclic vomiting syndrome Family history of angioedema Marijuana use, continuous MRSA (methicillin resistant staph aureus) culture positive Pancreatitis Surgical History Hx of appendectomy Hx of cholecystectomy Family History Father Hypertension Mother Diabetes mellitus Daughter Angio-edema Other Colon cancer Social History household members: spouse Smoking Status: Current every day smoker alcohol intake: current Discharge Plan Discharge Plan Patient Disposition: Home Provider Discharge Comment: Your admitted for nausea and vomiting causing dehydration to your kidneys and low potassium. Your kidney function improved to normal and your potassium improved as well. Your nausea and vomiting also got better. I am sending you home on daily potassium supplement. About swelling of your tongue which may be due to a condition called hereditary angioedema so I checked some labs to test for this. I also put you on 1 week of oral prednisone. Please see your primary care doctor so they can check for these labs as a take up to a week to result. The rash on your bottom appears to be fungal so I am starting you on an antifungal pill and cream. Do not take Zofran the same day as taking the fungal pill as they can interact. If the rash does not get better you should see Dermatology at [facility] again to see what they think it is. Discharge orders & Medications Prescriptions: New prednisone 20 mg tablet 40 mg PO DAILY 7 Days Qty: 14 0RF fluconazole 200 mg tablet 200 mg PO WEEKLY 28 Days Qty: 4 0RF Rx Instructions: take 1 tablet once weekly until rash resolves up to 4 weeks miconazole nitrate 2 % cream 1 applic topical BID Qty: 30 0RF Rx Instructions: Apply 1 gram of cream to rash twice daily until rash resolves up to 4 weeks. potassium chloride 20 mEq tablet extended release 20 meq PO DAILY Qty: 30 0RF Continued ondansetron 4 mg tablet,disintegrating 4 mg PO Q8H PRN (Reason: nausea and vomiting) Qty: 10 0RF lorazepam [Ativan] 0.5 mg tablet 0.5 mg PO DAILY PRN (Reason: nausea and vomiting) Qty: 10 0RF amlodipine 5 mg tablet 5 mg PO DAILY Label Comments: take 1 tablet by mouth once daily bupropion HCl 100 mg tablet sustained-release 12 hr 100 mg PO DAILY Label Comments: take 1 tablet by mouth once daily ondansetron 8 mg tablet,disintegrating 8 mg PO TID PRN (Reason: Nausea) Label Comments: dissolve 1 tablet by mouth up to three times a day sumatriptan 5 mg/actuation spray,non-aerosol 5 mg intranasal Q2-4H PRN (Reason: migraine headache) Qty: 1 0RF Rx Instructions: into each nostril once; if abdominal migraine remains, may repeat total dose once after at least 2 hours Follow up/Referrals: Joanna Storm MD [Primary Care Provider] - Discharge Data Primary Care Provider: Joanna Storm Quality VTE Deep Vein Thrombosis/Pulmonary Embolism Present on Admission: No
[2022-07-03 10:41] LABS: C1 Esterase Inhibitor 29 mg/dL (21-39)
[2022-07-03 13:46] LABS: C1 Esterase Inhibitor, Func 93 (.)
== END 2022-07-01 15:30 | disposition home or self-care (01) | DRG 394 ==
LOC: ED 05:45 → AC 06:32
PROVIDERS: Student in an Organized Health Care Education/Training Program; Admitting Provider Nurse Practitioner Family; Emergency Provider Emergency Medicine; Family Provider Internal Medicine; PCP Internal Medicine; Referring Provider Emergency Medicine; Visit Provider Nurse Practitioner Family
DX: R11.15 Cyclical vomiting syndrome unrelated to migraine (principal); E87.4 Mixed disorder of acid-base balance; N17.9 Acute kidney failure, unspecified; E87.6 Hypokalemia; F12.90 Cannabis use, unspecified, uncomplicated; T78.3XXA Angioneurotic edema, initial encounter; R21 Rash and other nonspecific skin eruption; Z20.822 Contact with and (suspected) exposure to COVID-19
CPT/HCPCS: 36415; 71045; 80048; 80053; 80305; 80320; 81001; 82009; 82805; 83036; 83605; 83735; 83880; 84145; 85025; 86160; 86161; 87086; 87635; 93306; 96374; 99284; C9803; J0171; J1200; J1630; J1650; J2930

== ENCOUNTER 2022-07-24 09:19 | Observation (INO) | payer BC, SELFPAY ==
[2022-06-30 16:00] VITALS: BMI 20.4
[2022-07-24] VITALS (9 sets, daily range): BP systolic 112–151; BP diastolic 75–104; PULSE 60–98; RESP 16–24; TEMP 36.6–37.3; O2SAT 95–100; BMI 21.8
--- NOTE | 2022-07-24 09:28 | ED.NAVMDI ---
HPI - Nausea/Vomiting/Diarrhea General Chief complaint: Abdominal Pain Stated complaint: cyclical vomiting Time Seen by Provider: 07/24/22 09:27 Source: patient and old records reviewed Limitations: no limitations History of Present Illness HPI Narrative: This is a 46-year-old female with history of cyclic vomiting, polysubstance abuse, alcohol use and angioedema. Patient presents with complaint of vomiting for the past 3 days. Patient states this is similar to her prior cyclic vomiting episodes in the past. She denies fevers. She states she is been vomiting up everything she tries to put in her stomach, denies any hemoptysis. States her pain is typical of her past episodes. Patient states she is been stooling regularly with no diarrhea or constipation and denies any black or bloody stools. She states no dysuria, urgency or frequency. No vaginal bleeding or discharge. Patient states she has not been able to keep down her home medications the last couple days but did try Phenergan suppository this morning which was not helpful. Patient states no surgeries. She does have allergies to Reglan, promethazine IV but can tolerate per rectum and latex. She does use tobacco, states she drinks 3-5 alcoholic drinks daily and states she uses THC intermittently as well as cocaine. Patient states she is unsure of her last cocaine use but does not think it was recently. She is accompanied by her today. We did discuss that she was noted to have angioedema on the last 2 visits of her tongue. Patient states she was told that this is from her COVID vaccination. She had testing sent for hereditary angioedema but does not know what the results of those were. Related Data Home Medications Medication Instructions Recorded Confirmed amlodipine 5 mg tablet 5 mg PO DAILY 06/30/22 07/24/22 bupropion HCl 100 mg tablet,12 hr 100 mg PO DAILY 06/30/22 07/24/22 sustained-release Previous Rx's Medication Instructions Recorded fluconazole 200 mg tablet 200 mg PO WEEKLY 4 weeks #4 tabs 07/01/22 potassium chloride 20 mEq 20 meq PO DAILY #30 tabs 07/01/22 tablet,extended release Allergies Allergy/AdvReac Type Severity Reaction Status Date / Time promethazine [PROMETHAZINE] Allergy Mild ERYTHEMA Verified 07/24/22 09:42 TO IV SITE PT STATES ABLE TO TAKE KS latex [LATEX] Allergy Unknown Verified 07/24/22 09:42 metoclopramide AdvReac Unknown DYSTONIA Verified 07/24/22 09:42 [METOCLOPRAMIDE] Review of Systems Review of Systems ROS Unobtainable: All systems reviewed & are unremarkable except as noted in HPI and below Patient History Medical History Abscess Chronic abdominal pain Cyclic vomiting syndrome Family history of angioedema Marijuana use, continuous MRSA (methicillin resistant staph aureus) culture positive Pancreatitis Surgical History Hx of appendectomy Hx of cholecystectomy Family History Father Hypertension Mother Diabetes mellitus Daughter Angio-edema Other Colon cancer Social History household members: spouse Smoking Status: Current every day smoker alcohol intake: current Smoking Status: Current every day smoker tobacco type: vaping alcohol intake frequency: 3 or more drinks per day Alcohol type: wine Substance Use Type: marijuana Exam Narrative Exam Narrative: GEN: Female, alert and oriented x 3, patient appears to be in moderate distress. HEENT: Atraumatic, pupils are equal round reactive to light, extraocular movements are intact, nares are clear, Throat is clear without any exudates, erythema, tonsillar enlargement or uvular deviation, no obvious swelling of lips or tongue on examination. HEART: Regular rate and rhythm without murmur, clicks, rubs. LUNGS:Lungs clear to auscultation, no wheezes, rales, crackles, chest moves symmetrically, no tachypnea accessory muscle use. ABD:bowel sounds normal, soft, mildly tender generalized, no guarding, rebound, rigidity, no masses noted, no hepatosplenomegaly, no distention. No bruit. :No CVA tenderness MSCL: Non-tender, no muscle atrophy, muscles strength 5/5 upper and lower extremities, full range of motion NEURO:CN 2-12 intact, sensation normall SKIN: No rash, erythema or other skin changes noted. Initial Vital Signs Initial Vital Signs: Vital Signs Temperature 98.0 F 07/24/22 09:33 Pulse Rate 90 07/24/22 09:33 Respiratory Rate 16 07/24/22 09:33 Blood Pressure 151/93 H 07/24/22 09:33 Pulse Oximetry 98 07/24/22 09:33 Oxygen Delivery Method 07/24/22 09:33 Course Orders Ordered: ED Orders 07/24/22 09:55 COVID19 -Nasal RAPID/Pre-Proc Stat 07/24/22 10:40 CT abdomen pelvis w con Stat 07/24/22 11:01 VBG [Venous Blood Gas] Stat 07/24/22 11:20 Lactate (Lactic Acid) Stat 07/24/22 12:45 Blood Culture Stat Amlodipine Besylate (Amlodipine 5 Mg Tablet) 5 mg PO DAILY LINDA Bupropion HCl (Bupropion Sr 100 Mg Tab) 100 mg PO DAILY LINDA Diphenhydramine HCl (Diphenhydramine 50 Mg/Ml Vial) 50 mg IV Q6HR PRN PRN Reason: Nausea Enoxaparin Sodium (Enoxaparin 40 Mg/0.4 Ml Syringe) 40 mg SUBCUT DAILY COUNT INCLUDES THE [facility] Haloperidol (Haloperidol 5 Mg/Ml Vial) 2 mg IV Q1H PRN PRN Reason: Nausea And Vomiting Lorazepam (Lorazepam 2 Mg/Ml Inj) 0.5 mg IV Q4HR PRN PRN Reason: Anxiety Pantoprazole Sodium (Pantoprazole 40 Mg Vial) 40 mg IV BID LINDA Stop: 07/28/22 23:59 Scopolamine (Scopolamine 1 Patch) 1 patch TOP Q72H COUNT INCLUDES THE [facility] Last Admin: 07/24/22 17:41 Dose: 1 patch Documented By: JYOTHI Discontinued Medications Diphenhydramine HCl (Diphenhydramine 50 Mg/Ml Vial) 25 mg IV NOW ONE Stop: 07/24/22 09:48 Last Admin: 07/24/22 09:59 Dose: 25 mg Documented By: SONAL Haloperidol (Haloperidol 5 Mg/Ml Vial) 5 mg IV NOW ONE Stop: 07/24/22 09:48 Last Admin: 07/24/22 09:59 Dose: 5 mg Documented By: SONAL Sodium Chloride (Normal Saline 0.9%) 1,000 mls @ 1,000 mls/hr IV BOLUS ONE Stop: 07/24/22 10:46 Last Infusion: 07/24/22 14:20 Dose: 0 mls/hr Documented By: SONAL(2) Admin: 07/24/22 09:58 Dose: 1,000 mls/hr Documented By: SONAL POTASSIUM CHLORIDE IN WATER (Potassium Cl 10 Meq/100 Ml Megan) 10 meq in 100 mls @ 100 mls/hr IV Q1H LINDA Stop: 07/24/22 14:14 Last Admin: 07/24/22 13:58 Dose: 100 mls/hr Documented By: SONAL(2) Infusion: 07/24/22 13:38 Dose: 100 mls/hr Documented By: RLS(2) Admin: 07/24/22 12:38 Dose: 100 mls/hr Documented By: Infusion: 07/24/22 12:19 Dose: 100 mls/hr Documented By: Admin: 07/24/22 11:19 Dose: 100 mls/hr Documented By: Infusion: 07/24/22 11:12 Dose: 100 mls/hr Documented By: Admin: 07/24/22 10:12 Dose: 100 mls/hr Documented By: RAFAT Lactated Ringer's (Lactated Ringers) 1,000 mls @ 1,000 mls/hr IV BOLUS ONE Stop: 07/24/22 11:39 Last Admin: 07/24/22 18:01 Dose: Not Given Documented By: JYOTHI POTASSIUM CHLORIDE IN WATER (Potassium Cl 10 Meq/100 Ml Megan) 10 meq in 100 mls @ 100 mls/hr IV Q1H LINDA Stop: 07/24/22 14:44 Last Admin: 07/24/22 18:00 Dose: 50 mls/hr Documented By: JYOTHI Pantoprazole Sodium (Pantoprazole 40 Mg Vial) 80 mg IV NOW ONE Stop: 07/24/22 17:23 Last Admin: 07/24/22 17:48 Dose: 80 mg Documented By: JYOTHI Reevaluation(s) Reevaluation #1: Patient is sleeping after medications. She is hypokalemic, she is acute kidney injury again today and her lactate is 9. Patient's exam was reassuring but based on this imaging was obtained. Plan to continue with hydration, repeat lactate and replacement of potassium IV with equal for admission. Time: 10:45 Reevaluation #2: Patient awake on recheck her lactate was 9, CT abdomen pelvis was obtained does not show acute change. Patient and I discussed her findings so far. She is still somewhat sleepy. Her was not in the room during this discussion will also update him. She is receiving IV potassium, lactate and blood cultures are being obtained at this time. No clear source of infection so antibiotics are being held and patient is also receiving hydration. Time: 11:30 Vital Signs Vital signs: Vital Signs - 8 hr 07/24/22 11:00 07/24/22 11:00 Pulse Rate 79 Respiratory Rate 24 Blood Pressure 126/80 Pulse Oximetry 95 MDM - Nausea/Vomiting/Diarrhea Lab Data Result diagrams: 07/24/22 09:20 07/24/22 09:20 Labs: Lab Results 07/24/22 07/24/22 07/24/22 Range/Units 09:20 09:20 09:40 WBC 6.2 (4.5-11.0) X10^3/uL RBC 4.77 (4.0-5.2) X10^6/uL Hgb 15.4 (12.0-16.0) g/dL Hct 44.2 (36-46) % MCV 92.6 (80-100) fL MCH 32.4 (26-34) PG MCHC 35.0 (30-36) % RDW 13.8 (11.6-14.8) % Plt Count 284 (150-400) X10^3/uL Neut % (Auto) 69.8 (50-75) % Lymph % (Auto) 20.9 L (25-40) % [place] % (Auto) 8.7 (3-14) % Eos % (Auto) 0.1 L (2-4) % Baso % (Auto) 0.5 (0-2) % Neut # (Auto) 4300 (6866-9870) /uL Lymph # (Auto) 1300 (4068-0994) /uL [place] # (Auto) 500 (0-900) /uL Eos # (Auto) 0 (0-450) /uL Baso # (Auto) 0 (0-100) /uL VBG pH (7.33-7.43) VBG pCO2 (45-50) mmHg VBG pO2 (35-45) mmHg VBG HCO3 (23-28) mmol/L VBG Total CO2 (24-29) mmol/L VBG O2 Saturation (70-75) % VBG Base Excess (0-4) mmol/L Sodium 138 (137-145) mmol/L Potassium 2.7 L* (3.4-5.1) mmol/L Chloride 82 L (98-107) mmol/L Carbon Dioxide 32 (22-32) mmol/L BUN 31 H (7-17) mg/dL Creatinine 1.72 H (0.52-1.04) mg/dL Estimated GFR 36 L (>60) mL/min BUN/Creatinine Ratio 18.0 (6-22) Glucose 134 H (70-100) mg/dL Lactate 9.7 H* (0.7-2.1) mmol/L Calcium 10.4 H (8.4-10.2) mg/dL Total Bilirubin 1.4 H (0.2-1.3) mg/dL AST 36 (14-36) IU/L ALT 35 H (<35) IU/L Alkaline Phosphatase 96 (38-126) U/L Total Protein 10.5 H (6.3-8.2) g/dL Albumin 5.6 H (3.5-5.0) g/dL Globulin 4.9 H (1.7-4.1) g/dL Albumin/Globulin Ratio 1.1 (1.0-2.8) Lipase 96 (23-300) U/L Ethyl Alcohol ( - 10) mg/dL Ketones (<0.27) mmol/L SARS-CoV-2 (PCR) (Negative) 07/24/22 07/24/22 07/24/22 Range/Units 09:40 09:55 11:01 WBC (4.5-11.0) X10^3/uL RBC (4.0-5.2) X10^6/uL Hgb (12.0-16.0) g/dL Hct (36-46) % MCV (80-100) fL MCH (26-34) PG MCHC (30-36) % RDW (11.6-14.8) % Plt Count (150-400) X10^3/uL Neut % (Auto) (50-75) % Lymph % (Auto) (25-40) % [place] % (Auto) (3-14) % Eos % (Auto) (2-4) % Baso % (Auto) (0-2) % Neut # (Auto) (0506-7571) /uL Lymph # (Auto) (1000-5456) /uL [place] # (Auto) (0-900) /uL Eos # (Auto) (0-450) /uL Baso # (Auto) (0-100) /uL VBG pH 7.63 H (7.33-7.43) VBG pCO2 40.7 L (45-50) mmHg VBG pO2 79 H (35-45) mmHg VBG HCO3 43 H (23-28) mmol/L VBG Total CO2 44 H (24-29) mmol/L VBG O2 Saturation 97 H (70-75) % VBG Base Excess 22.0 H (0-4) mmol/L Sodium (137-145) mmol/L Potassium (3.4-5.1) mmol/L Chloride (98-107) mmol/L Carbon Dioxide (22-32) mmol/L BUN (7-17) mg/dL Creatinine (0.52-1.04) mg/dL Estimated GFR (>60) mL/min BUN/Creatinine Ratio (6-22) Glucose (70-100) mg/dL Lactate (0.7-2.1) mmol/L Calcium (8.4-10.2) mg/dL Total Bilirubin (0.2-1.3) mg/dL AST (14-36) IU/L ALT (<35) IU/L Alkaline Phosphatase (38-126) U/L Total Protein (6.3-8.2) g/dL Albumin (3.5-5.0) g/dL Globulin (1.7-4.1) g/dL Albumin/Globulin Ratio (1.0-2.8) Lipase (23-300) U/L Ethyl Alcohol < 10 ( - 10) mg/dL Ketones 0.20 (<0.27) mmol/L SARS-CoV-2 (PCR) Negative (Negative) 07/24/22 Range/Units 11:20 WBC (4.5-11.0) X10^3/uL RBC (4.0-5.2) X10^6/uL Hgb (12.0-16.0) g/dL Hct (36-46) % MCV (80-100) fL MCH (26-34) PG MCHC (30-36) % RDW (11.6-14.8) % Plt Count (150-400) X10^3/uL Neut % (Auto) (50-75) % Lymph % (Auto) (25-40) % [place] % (Auto) (3-14) % Eos % (Auto) (2-4) % Baso % (Auto) (0-2) % Neut # (Auto) (7308-1795) /uL Lymph # (Auto) (1034-8614) /uL [place] # (Auto) (0-900) /uL Eos # (Auto) (0-450) /uL Baso # (Auto) (0-100) /uL VBG pH (7.33-7.43) VBG pCO2 (45-50) mmHg VBG pO2 (35-45) mmHg VBG HCO3 (23-28) mmol/L VBG Total CO2 (24-29) mmol/L VBG O2 Saturation (70-75) % VBG Base Excess (0-4) mmol/L Sodium (137-145) mmol/L Potassium (3.4-5.1) mmol/L Chloride (98-107) mmol/L Carbon Dioxide (22-32) mmol/L BUN (7-17) mg/dL Creatinine (0.52-1.04) mg/dL Estimated GFR (>60) mL/min BUN/Creatinine Ratio (6-22) Glucose (70-100) mg/dL Lactate 3.0 H (0.7-2.1) mmol/L Calcium (8.4-10.2) mg/dL Total Bilirubin (0.2-1.3) mg/dL AST (14-36) IU/L ALT (<35) IU/L Alkaline Phosphatase (38-126) U/L Total Protein (6.3-8.2) g/dL Albumin (3.5-5.0) g/dL Globulin (1.7-4.1) g/dL Albumin/Globulin Ratio (1.0-2.8) Lipase (23-300) U/L Ethyl Alcohol ( - 10) mg/dL Ketones (<0.27) mmol/L SARS-CoV-2 (PCR) (Negative) Imaging Data CT scan - abdomen/pelvis: Radiologist's Impression: Close Abdomen/Pelvis CT (Signed) Marbin Vasquez - 07/24/[address] [address] [address] Scan Report Signed Patient: Rhonda Yadav MR#: [id number] : 1975 Acct:[id number] Age/Sex: 46 / F Date of Service: 07/24/22 Loc: ED Accession Number: [id number] ?? Procedure: CT abdomen pelvis w con Ordering Provider: Janis Saxena D.O. PROCEDURE:? CT ABDOMEN PELVIS W CON ? INDICATIONS:? vomiting/hx cyclic, elevated lactate ? TECHNIQUE:? After the administration of intravenous contrast, axial sections acquired from the lung bases to the pubic symphysis.? Coronal and sagittal reformats were performed.? For radiation dose reduction, the following was used:? automated exposure control, adjustment of mA and/or kV according to patient size.? ? ?measuring 2.4 centimeters COMPARISON:? [facility], CT, ABDOMEN/PELVIS WITH CONTRAST, 11/26/2014, 1:04. ? FINDINGS:? Image quality:? Excellent.? ? Lung bases:? Unremarkable. Heart:? No significant findings. ? ABDOMEN: Liver:? Unremarkable.? ? Gallbladder:? Cholecystectomy.? ? Biliary ducts:? Mild dilatation of the intrahepatic and extrahepatic biliary ducts consistent with post cholecystectomy reservoir phenomenon. Pancreas:? No pancreatic ductal dilatation.? No peripancreatic inflammatory changes. Spleen:? Normal size and appearance of the spleen. Adrenal Glands:? Unremarkable.? ? Kidneys and Ureters:? No urinary tract calculus or hydroureteronephrosis. ? Stomach and Bowel:? No abnormally dilated or thickened loop of bowel.? No pericolonic or mesenteric inflammatory changes. Peritoneum:? No abnormal intraperitoneal fluid.? No free air.? ? Ventral Wall: ? No hernias.? Abdominal Nodes:? No retroperitoneal or mesenteric adenopathy by size criteria.? Vessels:? 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 ? PELVIS: Pelvic Organs:? IUD noted.? No abnormal finding of the uterus or ovaries.? Urinary bladder normal. Pelvic Nodes: No enlarged lymph nodes.? Miscellaneous: No hernias are seen. ? ? ? Bones:? Unremarkable.? IMPRESSION:? ? No acute finding. ? 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 ? Cholecystectomy.? ? Dictated by: Marbin Vasquez M.D. on 07/24/2022 at 11:19 ? ? Approved by: Marbin Vasquez M.D. on 07/24/2022 at 11:23?? ECG Data Attestation: I personally reviewed and interpreted this ECG as follows: Interpretation: Sinus rhythm rate of 76 KS 146 QRS 86 and QTC 479. Left ventricular hypertrophy, diffuse ST depression. MDM Narrative Medical decision making narrative: Patient presents with complaint of abdominal pain and vomiting consistent with her prior cyclic vomiting exacerbations she does continue to use THC she does use cocaine intermittently. She is not currently having any symptoms of angioedema although she is had 2 episodes with her oropharynx on her past visits in January and during her hospital stay the beginning of June. Patient's lab work was reviewed complement testing was sent. Patient states symptoms are very typical of her prior exacerbations so imaging was deferred patient states she is comfortable with this and not receiving more radiation. Labs including electrolytes, renal function were obtained. Fluids, Haldol and Benadryl as patient has often responded well to these. Patient's labs showed normal white count, creatinine is once again elevated and had returned to baseline on past hospitalization as well as hypokalemia, patient isn't having persistent vomiting but would require quite a bit of IV potassium and patient's lactate was quite elevated at 9, CT abdomen pelvis was obtained secondary to this there is a splenic artery aneurysm that appears calcified and is unlikely cause of her symptoms currently, lactate is improved to 3 after fluids. Patient has been doing very well after Haldol and Benadryl IV she is not required any additional doses. We did discuss with hospitalist she is had angioedema on past hospitalizations but no symptoms at this point. Plan for observation, Dr. Moralez kindly accepts. Critical Care Time Critical Care Time Critical Care Time: Yes Total Critical Care Time: 25 Attestation: The high probability of a clinically significant, sudden or life threatening deterioration of the [cardiac] system(s) required my full and direct attention, intervention and personal management. The aggregate critical care time was [] minutes. This time is in addition to time spent performing reported procedures but includes the following: [x] Data Review and interpretation [x] Patient assessment and monitoring of vital signs [x] Documentation [x] Medication orders and management Discharge Plan Departure Patient Disposition: Admitted as Observation Clinical Impression: Acute hypokalemia, Acute kidney injury, Vomiting Admit Date/Time: 07/24/22 13:02 Admit Provider: Marisela Lane
[2022-07-24 09:45] LABS: Add Manual Diff / Slide Review NO; Basophils Absolute Auto 0 /uL (0-100); Basophils Percent Auto 0.5 % (0-2); Eosinophils Absolute Auto 0 /uL (0-450); Eosinophils Percent Auto 0.1 % (2-4); Hematocrit 44.2 % (36-46); Hemoglobin 15.4 g/dL (12.0-16.0); Lymphocytes Absolute Auto 1300 /uL (1100-4500); Lymphocytes Percent Auto 20.9 % (25-40); Mean Corpuscular Hemoglobin 32.4 PG (26-34); Mean Corpuscular Volume 92.6 fL (80-100); Monocytes Absolute Auto 500 /uL (0-900); Monocytes Percent Auto 8.7 % (3-14); Neutrophils Absolute Auto 4300 /uL (1500-7000); Neutrophils Percent Auto 69.8 % (50-75); Platelet Count 284 X10^3/uL (150-400); Red Blood Cell Count 4.77 X10^6/uL (4.0-5.2); Red Cell Distribution Width 13.8 % (11.6-14.8); White Blood Cell Count 6.2 X10^3/uL (4.5-11.0)
[2022-07-24 09:56] LABS: Albumin 5.6 g/dL (3.5-5.0); Albumin Globulin Ratio 1.1 (1.0-2.8); Alkaline Phosphatase 96 U/L (38-126); Bilirubin Total 1.4 mg/dL (0.2-1.3); Blood Urea Nitrogen 31 mg/dL (7-17); Calcium 10.4 mg/dL (8.4-10.2); Carbon Dioxide 32 mmol/L (22-32); Chloride 82 mmol/L (98-107); Estimated Glomerular Filt Rate 36 mL/min (>60); Globulin 4.9 g/dL (1.7-4.1); Glucose 134 mg/dL (70-100); HEMOLYSIS < 15 (0-50); Lipase 96 U/L (23-300); Sodium 138 mmol/L (137-145); Total Protein 10.5 g/dL (6.3-8.2)
[2022-07-24] MEDS: SODIUM CHLORIDE 0.9% 1,000 ML 1000 ML IV (09:58)
[2022-07-24] MEDS: diphenhydrAMINE 50 MG/ML VIAL 25 MG IV (09:59)
[2022-07-24] MEDS: HALOPERIDOL 5 MG/ML VIAL IV (09:59)
[2022-07-24 10:02] LABS: Alanine Aminotransferase 35 IU/L (<35); Aspartate Aminotransferase 36 IU/L (14-36)
[2022-07-24 10:05] LABS: Potassium 2.7 mmol/L (3.4-5.1)
[2022-07-24] MEDS: POTASSIUM CHLORIDE IN WATER 10 MEQ/100 ML PIGGYBACK 100 MEQ IV ×4 (10:12→13:58)
[2022-07-24 10:19] LABS: Ethanol (ETOH) < 10 mg/dL
[2022-07-24 10:38] LABS: COVID19 -Nasal RAPID Negative (Negative)
[2022-07-24 10:40] LABS: Lactate (Lactic Acid) 9.7 mmol/L (0.7-2.1)
--- NOTE | 2022-07-24 10:40 | DI.CT.S_ITS ---
PROCEDURE: CT ABDOMEN PELVIS W CON INDICATIONS: vomiting/hx cyclic, elevated lactate TECHNIQUE: After the administration of intravenous contrast, axial sections acquired from the lung bases to the pubic symphysis. Coronal and sagittal reformats were performed. For radiation dose reduction, the following was used: automated exposure control, adjustment of mA and/or kV according to patient size. measuring 2.4 centimeters COMPARISON: [facility], CT, ABDOMEN/PELVIS WITH CONTRAST, 11/26/2014, 1:04. FINDINGS: Image quality: Excellent. Lung bases: Unremarkable. Heart: No significant findings. ABDOMEN: Liver: Unremarkable. Gallbladder: Cholecystectomy. Biliary ducts: Mild dilatation of the intrahepatic and extrahepatic biliary ducts consistent with post cholecystectomy reservoir phenomenon. Pancreas: No pancreatic ductal dilatation. No peripancreatic inflammatory changes. Spleen: Normal size and appearance of the spleen. Adrenal Glands: Unremarkable. Kidneys and Ureters: No urinary tract calculus or hydroureteronephrosis. Stomach and Bowel: No abnormally dilated or thickened loop of bowel. No pericolonic or mesenteric inflammatory changes. Peritoneum: No abnormal intraperitoneal fluid. No free air. Ventral Wall: No hernias. Abdominal Nodes: No retroperitoneal or mesenteric adenopathy by size criteria. 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 PELVIS: Pelvic Organs: IUD noted. No abnormal finding of the uterus or ovaries. Urinary bladder normal. Pelvic Nodes: No enlarged lymph nodes. Miscellaneous: No hernias are seen. Bones: Unremarkable. IMPRESSION: No acute finding. 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 Cholecystectomy. Dictated by: Marbin Vasquez M.D. on 07/24/2022 at 11:19 Approved by: Marbin Vasquez M.D. on 07/24/2022 at 11:23
[2022-07-24 11:14] LABS: HCO3 VBG 43 mmol/L (23-28); Oxygen Saturation VBG 97 % (70-75); PCO2 VBG 40.7 mmHg (45-50); PO2 VBG 79 mmHg (35-45); Total CO2 VBG 44 mmol/L (24-29); pH VBG 7.63 (7.33-7.43)
[2022-07-24 11:58] LABS: Reflexed Lactate in 2 Hours Y
--- NOTE | 2022-07-24 12:42 | PC.NURSE ---
DI nurse at bedside attempting to get Midline IV access
[2022-07-24 14:05] LABS: Reflexed Lactate in 2 Hours Y
[2022-07-24 14:51] LABS: Lactate 2HR (Lactic Acid Rflx) 1.3 mmol/L (0.7-2.1)
--- NOTE | 2022-07-24 17:05 | PM.HP.1 ---
History of Present Illness History of Present Illness Chief complaint: cyclical vomiting Narrative: This is a This is a 46-year-old female with history of cyclic vomiting, polysubstance abuse, alcohol use and angioedema.? Patient presents with complaint of vomiting for the past 3 days.? Patient states this is similar to her prior cyclic vomiting episodes in the past.? She denies fevers.? She states she is been vomiting up everything she tries to put in her stomach, denies any hemoptysis.? States her pain is typical of her past episodes.? Patient states she is been stooling regularly with no diarrhea or constipation and denies any black or bloody stools.? She states no dysuria, urgency or frequency.? No vaginal bleeding or discharge.? Patient states she has not been able to keep down her home medications the last couple days but did try Phenergan suppository this morning which was not helpful.? Patient states no surgeries.? She does have allergies to Reglan, promethazine IV but can tolerate per rectum and latex.? She does use tobacco, states she drinks 3-5 alcoholic drinks daily and states she uses THC intermittently as well as cocaine.? Patient states she is unsure of her last cocaine use but does not think it was recently.? She is accompanied by her today.? We did discuss that she was noted to have angioedema on the last 2 visits of her tongue.? Patient states she was told that this is from her COVID vaccination.? She had testing sent for hereditary angioedema but does not know what the results of those were.?46-year-old female with history of cyclic vomiting, polysubstance abuse, alcohol use and angioedema.? Patient presents with complaint of vomiting for the past 3 days.? Patient states this is similar to her prior cyclic vomiting episodes in the past.? She denies fevers.? She states she is been vomiting up everything she tries to put in her stomach, denies any hemoptysis.? States her pain is typical of her past episodes.? Patient states she is been stooling regularly with no diarrhea or constipation and denies any black or bloody stools.? She states no dysuria, urgency or frequency.? No vaginal bleeding or discharge.? Patient states she has not been able to keep down her home medications the last couple days but did try Phenergan suppository this morning which was not helpful.? Patient states no surgeries.? She does have allergies to Reglan, promethazine IV but can tolerate per rectum and latex.? She does use tobacco, states she drinks 3-5 alcoholic drinks daily and states she uses THC intermittently as well as cocaine.? Patient states she is unsure of her last cocaine use but does not think it was recently.? She is accompanied by her today.? We did discuss that she was noted to have angioedema on the last 2 visits of her tongue.? Patient states she was told that this is from her COVID vaccination.? She had testing sent for hereditary angioedema but does not know what the results of those were.? Patient History Medical History Abscess Chronic abdominal pain Cyclic vomiting syndrome Family history of angioedema Marijuana use, continuous MRSA (methicillin resistant staph aureus) culture positive Pancreatitis Surgical History Hx of appendectomy Hx of cholecystectomy Family & Social History Family History Father Hypertension Mother Diabetes mellitus Daughter Angio-edema Other Colon cancer Social History: household members spouse Safety & Behavioral: Feels Safe in Current Yes Environment Been Physically Hurt or No Threatened By a Person Tobacco & Substance use: Tobacco type e-cigarettes Smoking Status Current every day smoker alcohol intake current alcohol intake frequency 3 or more drinks per day Substance Use Type former substance user,marijuana,crack/cocaine, methamphetamine Meds Home Medications and Allergies Home Medications Medication Instructions Recorded Confirmed Type amlodipine 5 mg tablet 5 mg PO DAILY 06/30/22 07/24/22 History bupropion HCl 100 mg tablet,12 hr 100 mg PO DAILY 06/30/22 07/24/22 History sustained-release fluconazole 200 mg tablet 200 mg PO WEEKLY 4 weeks #4 tabs 07/01/22 07/24/22 Rx potassium chloride 20 mEq 20 meq PO DAILY #30 tabs 07/01/22 07/24/22 Rx tablet,extended release Allergies Allergy/AdvReac Type Severity Reaction Status Date / Time promethazine [PROMETHAZINE] Allergy Mild ERYTHEMA Verified 07/24/22 09:42 TO IV SITE PT STATES ABLE TO TAKE OK latex [LATEX] Allergy Unknown Verified 07/24/22 09:42 metoclopramide AdvReac Unknown DYSTONIA Verified 07/24/22 09:42 [METOCLOPRAMIDE] Review of Systems Review of Systems Narrative: Fourteen system review completed completed and pertinent findings are in the history of chief complaint Exam Vital Signs (past 8 hours): - 07/24/22 09:33 07/24/22 09:36 07/24/22 10:18 Temperature 98.0 F Pulse Rate 90 98 H 89 Respiratory Rate 16 Blood Pressure 151/93 H 151/93 H Pulse Oximetry 98 100 96 Oxygen Delivery Method Room Air Room Air Oxygen Flow Rate 07/24/22 10:30 07/24/22 10:30 07/24/22 11:00 Temperature Pulse Rate 91 H Respiratory Rate Blood Pressure 116/82 126/80 Pulse Oximetry 96 Oxygen Delivery Method Oxygen Flow Rate 07/24/22 11:00 07/24/22 14:30 Temperature 97.8 F Pulse Rate 79 74 Respiratory Rate 24 22 Blood Pressure 125/75 Pulse Oximetry 95 96 Oxygen Delivery Method Oxygen Flow Rate 0 Oxygen Delivery Method Room Air Oxygen Flow Rate 0 Narrative Exam Narrative: Gen: Alert, oriented, thin 46 y.o. , very lethargic HEENT: normocephalic, atraumatic, conjunctiva clear, sclera non-icteric, oral mucosa pink and moist Neck: supple, full ROM, no JVD, trachea is midline Resp: Lungs CTA, non-labored breathing CV: RRR, no murmur or rubs Abd: soft, epigastric tenderness, normal bowel sounds Skin: no lesions or rashes, dry and intact Neuro: Unable to stay awake while speaking Extremities: moves all 4 extremities, is ambulatory, negative Ramiro?s sign Psyche: mildly agitated when awakened. Patient's main focus is complaining about her abdominal pain. Objective Labs Result Diagrams: 07/24/22 09:20 07/24/22 09:20 Labs: Laboratory Results - last 24 hr 07/24/22 07/24/22 07/24/22 09:20 09:20 09:40 WBC 6.2 RBC 4.77 Hgb 15.4 Hct 44.2 MCV 92.6 MCH 32.4 MCHC 35.0 RDW 13.8 Plt Count 284 Neut % (Auto) 69.8 Lymph % (Auto) 20.9 L [place] % (Auto) 8.7 Eos % (Auto) 0.1 L Baso % (Auto) 0.5 Neut # (Auto) 4300 Lymph # (Auto) 1300 [place] # (Auto) 500 Eos # (Auto) 0 Baso # (Auto) 0 VBG pH VBG pCO2 VBG pO2 VBG HCO3 VBG Total CO2 VBG O2 Saturation VBG Base Excess Sodium 138 Potassium 2.7 L* Chloride 82 L Carbon Dioxide 32 BUN 31 H Creatinine 1.72 H Estimated GFR 36 L BUN/Creatinine Ratio 18.0 Glucose 134 H Lactate 9.7 H* Calcium 10.4 H Total Bilirubin 1.4 H AST 36 ALT 35 H Alkaline Phosphatase 96 Total Protein 10.5 H Albumin 5.6 H Globulin 4.9 H Albumin/Globulin Ratio 1.1 Lipase 96 Ethyl Alcohol Ketones SARS-CoV-2 (PCR) 07/24/22 07/24/22 07/24/22 09:40 09:55 11:01 WBC RBC Hgb Hct MCV MCH MCHC RDW Plt Count Neut % (Auto) Lymph % (Auto) [place] % (Auto) Eos % (Auto) Baso % (Auto) Neut # (Auto) Lymph # (Auto) [place] # (Auto) Eos # (Auto) Baso # (Auto) VBG pH 7.63 H VBG pCO2 40.7 L VBG pO2 79 H VBG HCO3 43 H VBG Total CO2 44 H VBG O2 Saturation 97 H VBG Base Excess 22.0 H Sodium Potassium Chloride Carbon Dioxide BUN Creatinine Estimated GFR BUN/Creatinine Ratio Glucose Lactate Calcium Total Bilirubin AST ALT Alkaline Phosphatase Total Protein Albumin Globulin Albumin/Globulin Ratio Lipase Ethyl Alcohol < 10 Ketones 0.20 SARS-CoV-2 (PCR) Negative 07/24/22 07/24/22 11:20 14:35 WBC RBC Hgb Hct MCV MCH MCHC RDW Plt Count Neut % (Auto) Lymph % (Auto) [place] % (Auto) Eos % (Auto) Baso % (Auto) Neut # (Auto) Lymph # (Auto) [place] # (Auto) Eos # (Auto) Baso # (Auto) VBG pH VBG pCO2 VBG pO2 VBG HCO3 VBG Total CO2 VBG O2 Saturation VBG Base Excess Sodium Potassium Chloride Carbon Dioxide BUN Creatinine Estimated GFR BUN/Creatinine Ratio Glucose Lactate 3.0 H 1.3 Calcium Total Bilirubin AST ALT Alkaline Phosphatase Total Protein Albumin Globulin Albumin/Globulin Ratio Lipase Ethyl Alcohol Ketones SARS-CoV-2 (PCR) Assessment & Plan Assessment & Plan narrative: 1. Epigastric pain. Provide intravenous pantoprazole. Initial dose of 80 mg and 40 mg q.12h. Concern for gastritis. 2. Persistent vomiting likely secondary to THC as has been in the past. Treat with Haldol IV and diphenhydramine IV as well as scopolamine patch 3. Hypokalemia. Replacement initiated in the emergency room. Continue. Follow labs this evening and determine further placement is necessary. 4. Anxiety, chronic and acute on chronic. Treat as needed. Will provide lorazepam and as needed. Can continue does of bupropion 100 mg daily for chronic underlying anxiety/depression. 5. DVT prophylaxis. Enoxaparin 40 mg subcu every 24 hours. 6. Hypertension, chronic. Continue patient's regular medication of amlodipine 5 mg daily. 7. Clear fluid diet and IV fluids for now until nausea vomiting is consistently settled. 8. Code status: Presumed to be full code until told otherwise by the patient. Not in the mood to discuss at this time. Admit to inpatient since greater than 2 in night is expected with the patient's stay and due to risk for increased severity of the patient's illness. Substitute decision maker has not been given. Need to continue to request this from the patient. Time Spent With Patient Critical Care time: I spent a total of [] minutes of critical care time on this patient's care today; this time is exclusive of procedural time.
[2022-07-24] MEDS: SCOPOLAMINE 1 PATCH TOP (17:41)
[2022-07-24] MEDS: PANTOPRAZOLE 40 MG VIAL 80 MG IV (17:48)
[2022-07-24] MEDS: POTASSIUM CHLORIDE IN WATER 10 MEQ/100 ML PIGGYBACK 50 MEQ IV (18:00)
--- NOTE | 2022-07-24 18:40 | PC.NURSE ---
Pt is A&Ox3, very lethargic but will answer questions and fall back to sleep ( per ED RN recieved benadryl and haldol )She is sweating , difficulty placing telemetry this evening. Pt afebrile with temp of 98.3. Potassium ordered running extremely slowly due to crying from pain in midline with k+ running. Repeat BMP ordered for this evening at 1900. Continuous monitoring.
[2022-07-24] MEDS: SODIUM CHLORIDE 0.9% 1,000 ML 75 ML IV (19:54)
[2022-07-24] MEDS: POTASSIUM CHLORIDE IN WATER 10 MEQ/100 ML PIGGYBACK 75 MEQ IV (19:55)
[2022-07-24] MEDS: EPINEPHrine 1 MG/ML 0.3 MG IM (20:36)
--- NOTE | 2022-07-24 20:49 | PC.NURSE ---
0810 Pt. C/O tongue edema, Dr. Fortune notified ordered to stopped IVF of NS & K-riders for now & monitor patient. Also ordered Epi. & another RN. administered Epi. IM. re-assessed patient before an Epinephrine dose & she states my tongue is less swollen. Dr. Fortune ordered to wait until 2300 & if patient is stable to resumed NS & K-riders.
[2022-07-24] MEDS: methylPREDNISolone 125 MG/2 ML VIAL IV (20:52)
--- NOTE | 2022-07-24 21:10 | P.PN_ITS ---
Exam Vital Signs (past 8 hours): - 07/24/22 14:30 07/24/22 19:59 07/24/22 20:54 Temperature 97.8 F 98.2 F 98.4 F Pulse Rate 74 60 72 Respiratory Rate 22 18 17 Blood Pressure 125/75 144/95 H 112/75 Pulse Oximetry 96 100 99 Oxygen Flow Rate 0 Oxygen Delivery Method Room Air Oxygen Flow Rate 0 Narrative Exam Narrative: Gen: Alert, oriented, thin 46 y.o. , very lethargic HEENT: normocephalic, atraumatic, conjunctiva clear, sclera non-icteric, oral mucosa pink and moist Neck: supple, full ROM, no JVD, trachea is midline Resp: Lungs CTA, non-labored breathing CV: RRR, no murmur or rubs Abd: soft, epigastric tenderness, normal bowel sounds Skin: no lesions or rashes, dry and intact Neuro: Unable to stay awake while speaking Extremities: moves all 4 extremities, is ambulatory, negative Ramiro?s sign Psyche: mildly agitated when awakened. Patient's main focus is complaining about her abdominal pain. Objective Labs Result Diagrams: 07/24/22 09:20 07/24/22 09:20 Labs: Laboratory Results - last 24 hr 07/24/22 07/24/22 07/24/22 09:20 09:20 09:40 WBC 6.2 RBC 4.77 Hgb 15.4 Hct 44.2 MCV 92.6 MCH 32.4 MCHC 35.0 RDW 13.8 Plt Count 284 Neut % (Auto) 69.8 Lymph % (Auto) 20.9 L [place] % (Auto) 8.7 Eos % (Auto) 0.1 L Baso % (Auto) 0.5 Neut # (Auto) 4300 Lymph # (Auto) 1300 [place] # (Auto) 500 Eos # (Auto) 0 Baso # (Auto) 0 VBG pH VBG pCO2 VBG pO2 VBG HCO3 VBG Total CO2 VBG O2 Saturation VBG Base Excess Sodium 138 Potassium 2.7 L* Chloride 82 L Carbon Dioxide 32 BUN 31 H Creatinine 1.72 H Estimated GFR 36 L BUN/Creatinine Ratio 18.0 Glucose 134 H Lactate 9.7 H* Calcium 10.4 H Total Bilirubin 1.4 H AST 36 ALT 35 H Alkaline Phosphatase 96 Total Protein 10.5 H Albumin 5.6 H Globulin 4.9 H Albumin/Globulin Ratio 1.1 Lipase 96 Ethyl Alcohol Ketones SARS-CoV-2 (PCR) 07/24/22 07/24/22 07/24/22 09:40 09:55 11:01 WBC RBC Hgb Hct MCV MCH MCHC RDW Plt Count Neut % (Auto) Lymph % (Auto) [place] % (Auto) Eos % (Auto) Baso % (Auto) Neut # (Auto) Lymph # (Auto) [place] # (Auto) Eos # (Auto) Baso # (Auto) VBG pH 7.63 H VBG pCO2 40.7 L VBG pO2 79 H VBG HCO3 43 H VBG Total CO2 44 H VBG O2 Saturation 97 H VBG Base Excess 22.0 H Sodium Potassium Chloride Carbon Dioxide BUN Creatinine Estimated GFR BUN/Creatinine Ratio Glucose Lactate Calcium Total Bilirubin AST ALT Alkaline Phosphatase Total Protein Albumin Globulin Albumin/Globulin Ratio Lipase Ethyl Alcohol < 10 Ketones 0.20 SARS-CoV-2 (PCR) Negative 07/24/22 07/24/22 11:20 14:35 WBC RBC Hgb Hct MCV MCH MCHC RDW Plt Count Neut % (Auto) Lymph % (Auto) [place] % (Auto) Eos % (Auto) Baso % (Auto) Neut # (Auto) Lymph # (Auto) [place] # (Auto) Eos # (Auto) Baso # (Auto) VBG pH VBG pCO2 VBG pO2 VBG HCO3 VBG Total CO2 VBG O2 Saturation VBG Base Excess Sodium Potassium Chloride Carbon Dioxide BUN Creatinine Estimated GFR BUN/Creatinine Ratio Glucose Lactate 3.0 H 1.3 Calcium Total Bilirubin AST ALT Alkaline Phosphatase Total Protein Albumin Globulin Albumin/Globulin Ratio Lipase Ethyl Alcohol Ketones SARS-CoV-2 (PCR) PFSH Medical History Abscess Chronic abdominal pain Cyclic vomiting syndrome Family history of angioedema Marijuana use, continuous MRSA (methicillin resistant staph aureus) culture positive Pancreatitis Surgical History Hx of appendectomy Hx of cholecystectomy Family History Father Hypertension Mother Diabetes mellitus Daughter Angio-edema Other Colon cancer Social History household members: spouse Smoking Status: Current every day smoker alcohol intake: current Assessment & Plan Assessment & Plan narrative: 1. Epigastric pain. Provide intravenous pantoprazole. Initial dose of 80 mg and 40 mg q.12h. Concern for gastritis. 2. Persistent vomiting likely secondary to THC as has been in the past. Treat with Haldol IV and diphenhydramine IV as well as scopolamine patch 3. Hypokalemia. Replacement initiated in the emergency room. Continue. Follow labs this evening and determine further placement is necessary. 4. Anxiety, chronic and acute on chronic. Treat as needed. Will provide lorazepam and as needed. 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 5. DVT prophylaxis. Enoxaparin 40 mg subcu every 24 hours. 6. Hypertension, chronic. Continue patient's regular medication of amlodipine 5 mg daily. 7. Clear fluid diet and IV fluids for now until nausea vomiting is consistently settled. 8. Code status: Presumed to be full code until told otherwise by the patient. Not in the mood to discuss at this time. Admit to inpatient since greater than 2 in night is expected with the patient's stay and due to risk for increased severity of the patient's illness. Substitute decision maker has not been given. Need to continue to request this from the patient. Time Spent With Patient Critical Care time: I spent a total of [] minutes of critical care time on this patient's care today; this time is exclusive of procedural time. Quality VTE Deep Vein Thrombosis/Pulmonary Embolism Present on Admission: No
--- NOTE | 2022-07-24 21:50 | CM.MNRNOTE ---
Called night pharmacist to re-enter dosing time for the remaining K-riders. Advised to recheck her potassium level first before infusing the remaining K-riders. Dr. Fortune notified order received to do stat BMP, lab. called to notify the new order. Will cont. POC & monitor.
[2022-07-24 23:04] LABS: Blood Urea Nitrogen 20 mg/dL (7-17); Calcium 8.5 mg/dL (8.4-10.2); Carbon Dioxide 33 mmol/L (22-32); Chloride 94 mmol/L (98-107); Estimated Glomerular Filt Rate > 60 mL/min (>60); Glucose 145 mg/dL (70-100); HEMOLYSIS 34 (0-50); Potassium 2.8 mmol/L (3.4-5.1); Sodium 134 mmol/L (137-145)
[2022-07-25] MEDS: POTASSIUM CHLORIDE IN WATER 10 MEQ/100 ML PIGGYBACK 100 MEQ IV (00:10)
--- NOTE | 2022-07-25 00:22 | PC.NURSE ---
C/O swollen tongue again. Dr. Fortune notified & will implement order & monitor.
[2022-07-25 00:28] VITALS: BP 128/107; PULSE 71; RESP 16; TEMP 36.3; O2SAT 95
[2022-07-25] MEDS: EPINEPHrine 1 MG/ML 0.3 MG IM (00:38)
[2022-07-25] MEDS: FAMOTIDINE 20 MG/2 ML VIAL IV (00:38)
[2022-07-25] MEDS: LACTATED RINGERS 1,000 ML 84 ML IV (00:58)
[2022-07-25] MEDS: diphenhydrAMINE 50 MG/ML VIAL IV (01:03)
[2022-07-25 01:06] LABS: Ur Creatinine 20 (Normal)
[2022-07-25 01:07] LABS: UR Morphine/Opiate cutoff 300 Negative (Negative); Ur Specific Gravity 1.015 (Normal); Urine Amphetamines Negative (Negative); Urine Barbiturates Negative (Negative); Urine Benzodiazepines Negative (Negative); Urine Cocaine Positive (Negative); Urine MDMA Negative (Negative); Urine Methadone Negative (Negative); Urine Methamphetamines Negative (Negative); Urine Oxycodone Negative (Negative); Urine Phencyclidine Negative (Negative); Urine Tricyclic Antidepressant Negative (Negative); Urine pH 5 (Normal)
--- NOTE | 2022-07-25 02:04 | PC.NURSE ---
Pt. requesting some solid food. States I did not have nausea & vomiting since yesterday, I'm hungry. Dr. Fortune notified order received general diet. May give small portion & monitor for N/V. Patient reported my tongue is not that swollen & I can swallow fine. Give 1 pack of cracker & 1 stick of cheese. Will cont. POC & monitor.
[2022-07-25 06:41] VITALS: BP 122/67; PULSE 73; RESP 17; TEMP 36.7; O2SAT 98
--- NOTE | 2022-07-25 07:27 | PC.NURSE ---
BACK TUFTEROnofre KANG called reported patient's HR down to 47 briefly. Checked patient, stated I'm fine . VSS B/P 122/67 & HR. 73. Report given to day RN. Lara to monitor patient.
[2022-07-25] MEDS: ENOXAPARIN 40 MG/0.4 ML SYRINGE SUBCUT (09:05)
[2022-07-25] MEDS: PANTOPRAZOLE 40 MG VIAL IV (09:05)
[2022-07-25] MEDS: buPROPion SR 100 MG TAB PO (09:05)
[2022-07-25] MEDS: AMLODIPINE 5 MG TABLET PO (09:05)
[2022-07-25] MEDS: POTASSIUM CHLORIDE 20 MEQ TAB 40 MEQ PO (09:38)
[2022-07-25 10:07] LABS: HEMOLYSIS 26 (0-50); Potassium 3.2 mmol/L (3.4-5.1)
[2022-07-25 10:19] LABS: Enterococcus species Not Detected (Not Detect); Listeria monocytogenes Not Detected (Not Detect); Methicillin-resistant gene Not Detected (Not Detect); Staphylococcus species Detected (Not Detect); Vancomycin-rest genes A/B Not Detected (Not Detect)
[2022-07-25 10:20] LABS: Acinetobacter baumannii Not Detected (Not Detect); Candida albicans Not Detected (Not Detect); Candida glabrata Not Detected (Not Detect); Candida krusei Not Detected (Not Detect); Candida parapsilosis Not Detected (Not Detect); Candida tropicalis Not Detected (Not Detect); E. coli Not Detected (Not Detect); Enterobacter cloacae complex Not Detected (Not Detect); Enterobacteriaceae species Not Detected (Not Detect); Haemophilus influenzae Not Detected (Not Detect); KPC (carbapenem-resist gene) Not Detected (Not Detect); Neisseria meningitidis Not Detected (Not Detect); Proteus species Not Detected (Not Detect); Pseudomonas aeruginosa Not Detected (Not Detect); Serratia marcescens Not Detected (Not Detect); Streptococcus agalactiae (Gr B Not Detected (Not Detect); Streptococcus pneumonia Not Detected (Not Detect); Streptococcus pyogenes (Gr A) Not Detected (Not Detect); Streptococcus species Not Detected (Not Detect)
--- NOTE | 2022-07-25 10:30 | P.DS_ITS ---
History of Present Illness History of Present Illness Date Patient Seen: 07/25/22 Time Patient Seen: 10:30 Chief complaint: cyclical vomiting Narrative: This is a This is a 46-year-old female with history of cyclic vomiting, polysubstance abuse, alcohol use and angioedema.? Patient presents with complaint of vomiting for the past 3 days.? Patient states this is similar to her prior cyclic vomiting episodes in the past.? She denies fevers.? She states she is been vomiting up everything she tries to put in her stomach, denies any hemoptysis.? States her pain is typical of her past episodes.? Patient states she is been stooling regularly with no diarrhea or constipation and denies any black or bloody stools.? She states no dysuria, urgency or frequency.? No vaginal bleeding or discharge.? Patient states she has not been able to keep down her home medications the last couple days but did try Phenergan suppository this morning which was not helpful.? Patient states no surgeries.? She does have allergies to Reglan, promethazine IV but can tolerate per rectum and latex.? She does use tobacco, states she drinks 3-5 alcoholic drinks daily and states she us es THC intermittently as well as cocaine.? Patient states she is unsure of her last cocaine use but does not think it was recently.? She is accompanied by her today.? We did discuss that she was noted to have angioedema on the last 2 visits of her tongue.? Patient states she was told that this is from her COVID vaccination.? She had testing sent for hereditary angioedema but does not know what the results of those were.?46-year-old female with history of cyclic vomiting, polysubstance abuse, alcohol use and angioedema.? Patient presents with complaint of vomiting for the past 3 days.? Patient states this is similar to her prior cyclic vomiting episodes in the past.? She denies fevers.? She states she is been vomiting up everything she tries to put in her stomach, denies any hemoptysis.? States her pain is typical of her past episodes.? Patient states she is been stooling regularly with no diarrhea or constipation and denies any black or bloody stools.? She states no dysuria, urgency or frequency.? No vaginal bleeding or discharge.? Patient states she has not been able to keep down her home medications the last couple days but did try Phenergan suppository this morning which was not helpful.? Patient states no surgeries.? She does have allergies to Reglan, promethazine IV but can tolerate per rectum and latex.? She does use tobacco, states she drinks 3-5 alcoholic drinks daily and states she uses THC intermittently as well as cocaine.? Patient states she is unsure of her last cocaine use but does not think it was recently.? She is accompanied by her today.? We did discuss that she was noted to have angioedema on the last 2 visits of her tongue.? Patient states she was told that this is from her COVID vaccination.? She had testing sent for hereditary angioedema but does not know what the results of those were.? Discharge Providers Provider Date of admission: 07/24/22 13:02 Discharge Date: 07/25/22 Primary care physician: Joanna Storm MD Discharge provider: Hugh Salmon DO Summary Hospital Course Discharge Diagnosis: 1. Epigastric pain.? Improved with resolution of NV. 2. Persistent vomiting likely secondary to THC as has been in the past.? Treat with Haldol IV and diphenhydramine IV as well as scopolamine patch. Resolved while inpatient. 3. Hypokalemia.? Replacement initiated in the emergency room.? Continue.? Inc reased home K supplement to 40 daily and put patient on spironolactone in place of her amlodipine for HTN to help keep K levels up. 4. Anxiety, chronic and acute on chronic.? Treat as needed.? Will provide lorazepam and as needed.? Can continue does of bupropion 100 mg daily for chronic underlying anxiety/depression. 5. DVT prophylaxis.? Enoxaparin 40 mg subcu every 24 hours. 6. Hypertension, chronic.? Change amlodipine to aldactone due to persistent hypokalemia. Hospital Course: Admitted for hyperemesis and low K. Potassium replaced and improved to 3.2. NV resolved with haldol, benadryl and scopolamine patch. Patient counseled to limit her amount of marijuana use. Changed her home amlodipine to aldactone for persistent hypokalemia and increased her home K supplement to 40 daily from 20. Time Spent with Patient Time spent: Greater than 30 minutes Exam Vital Signs (past 8 hours): - 07/25/22 06:41 07/25/22 07:00 Temperature 98.1 F Pulse Rate 73 Respiratory Rate 17 Blood Pressure 122/67 Pulse Oximetry 98 Oxygen Delivery Method Room Air Oxygen Delivery Method Room Air Oxygen Flow Rate 0 Narrative Exam Narrative: Gen: Alert, oriented, thin 46 y.o. HEENT: normocephalic, atraumatic, conjunctiva clear, sclera non-icteric, oral mucosa pink and moist Neck: supple, full ROM, no JVD, trachea is midline Resp: Lungs CTA, non-labored breathing CV: RRR, no murmur or rubs Abd: soft, epigastric tenderness, normal bowel sounds Skin: no lesions or rashes, dry and intact Neuro: No focal deficits. Extremities: moves all 4 extremities, is ambulatory, negative Ramiro?s sign Psych: no acute psychosis Objective Labs Result Diagrams: 07/24/22 09:20 07/25/22 09:45 Labs: Laboratory Results - last 24 hr 07/24/22 07/24/22 07/24/22 09:40 09:40 09:55 VBG pH VBG pCO2 VBG pO2 VBG HCO3 VBG Total CO2 VBG O2 Saturation VBG Base Excess Sodium Potassium Chloride Carbon Dioxide BUN Creatinine Estimated GFR BUN/Creatinine Ratio Glucose Lactate 9.7 H* Calcium Magnesium U Opiates 300ng/mL cut Ur Oxycodone Screen Urine Methadone Screen Ur Barbiturates Screen U Tricyclic Antidepress Ur Phencyclidine Scrn Ur Amphetamines Screen U Methamphetamines Scrn Ur MDMA Scrn (Ecstasy) U Benzodiazepines Scrn Urine Cocaine Screen U Marijuana (THC) Screen Ketones 0.20 A. baumannii (PCR) Estefany albicans (PCR) C. glabrata (PCR) C. krusei (PCR) C. parapsilosis (PCR) C. tropicalis (PCR) SARS-CoV-2 (PCR) Negative Enterobacteriac sp PCR E. cloacae complex PCR Enterococcus sp PCR E. coli (PCR) H. influenzae (PCR) Klebsiella oxytoca PCR Klebsiella pneumoniae List. monocytogenes PCR N. meningitidis (PCR) Proteus species (PCR) Serratia marcescens PCR Staphylococcus sp PCR Staph aureus (PCR) mecA-Methicil Res Gene Streptococcus sp PCR Group A Strep (PCR) Strep agalactiae (PCR) Strep pneumoniae (PCR) P. aeruginosa (PCR) Corby/B-Vanco Res Genes KPC-Carbap Res Gene PCR 07/24/22 07/24/22 07/24/22 11:01 11:20 12:45 VBG pH 7.63 H VBG pCO2 40.7 L VBG pO2 79 H VBG HCO3 43 H VBG Total CO2 44 H VBG O2 Saturation 97 H VBG Base Excess 22.0 H Sodium Potassium Chloride Carbon Dioxide BUN Creatinine Estimated GFR BUN/Creatinine Ratio Glucose Lactate 3.0 H Calcium Magnesium U Opiates 300ng/mL cut Ur Oxycodone Screen Urine Methadone Screen Ur Barbiturates Screen U Tricyclic Antidepress Ur Phencyclidine Scrn Ur Amphetamines Screen U Methamphetamines Scrn Ur MDMA Scrn (Ecstasy) U Benzodiazepines Scrn Urine Cocaine Screen U Marijuana (THC) Screen Ketones A. baumannii (PCR) Not detected Estefany albicans (PCR) Not detected C. glabrata (PCR) Not detected C. krusei (PCR) Not detected C. parapsilosis (PCR) Not detected C. tropicalis (PCR) Not detected SARS-CoV-2 (PCR) Enterobacteriac sp PCR Not detected E. cloacae complex PCR Not detected Enterococcus sp PCR Not detected E. coli (PCR) Not detected H. influenzae (PCR) Not detected Klebsiella oxytoca PCR Not detected Klebsiella pneumoniae Not detected List. monocytogenes PCR Not detected N. meningitidis (PCR) Not detected Proteus species (PCR) Not detected Serratia marcescens PCR Not detected Staphylococcus sp PCR Detected H Staph aureus (PCR) Not detected mecA-Methicil Res Gene Not detected Streptococcus sp PCR Not detected Group A Strep (PCR) Not detected Strep agalactiae (PCR) Not detected Strep pneumoniae (PCR) Not detected P. aeruginosa (PCR) Not detected Corby/B-Vanco Res Genes Not detected KPC-Carbap Res Gene PCR Not detected 07/24/22 07/24/22 07/25/22 14:35 22:42 00:20 VBG pH VBG pCO2 VBG pO2 VBG HCO3 VBG Total CO2 VBG O2 Saturation VBG Base Excess Sodium 134 L Potassium 2.8 L Chloride 94 L Carbon Dioxide 33 H BUN 20 H Creatinine 0.87 Estimated GFR > 60 BUN/Creatinine Ratio 23.0 H Glucose 145 H Lactate 1.3 Calcium 8.5 Magnesium U Opiates 300ng/mL cut Negative Ur Oxycodone Screen Negative Urine Methadone Screen Negative Ur Barbiturates Screen Negative U Tricyclic Antidepress Negative Ur Phencyclidine Scrn Negative Ur Amphetamines Screen Negative U Methamphetamines Scrn Negative Ur MDMA Scrn (Ecstasy) Negative U Benzodiazepines Scrn Negative Urine Cocaine Screen Positive H U Marijuana (THC) Screen TNP Ketones A. baumannii (PCR) Estefany albicans (PCR) C. glabrata (PCR) C. krusei (PCR) C. parapsilosis (PCR) C. tropicalis (PCR) SARS-CoV-2 (PCR) Enterobacteriac sp PCR E. cloacae complex PCR Enterococcus sp PCR E. coli (PCR) H. influenzae (PCR) Klebsiella oxytoca PCR Klebsiella pneumoniae List. monocytogenes PCR N. meningitidis (PCR) Proteus species (PCR) Serratia marcescens PCR Staphylococcus sp PCR Staph aureus (PCR) mecA-Methicil Res Gene Streptococcus sp PCR Group A Strep (PCR) Strep agalactiae (PCR) Strep pneumoniae (PCR) P. aeruginosa (PCR) Corby/B-Vanco Res Genes KPC-Carbap Res Gene PCR 07/25/22 07/25/22 09:45 09:45 VBG pH VBG pCO2 VBG pO2 VBG HCO3 VBG Total CO2 VBG O2 Saturation VBG Base Excess Sodium Potassium 3.2 L Chloride Carbon Dioxide BUN Creatinine Estimated GFR BUN/Creatinine Ratio Glucose Lactate Calcium Magnesium 2.0 U Opiates 300ng/mL cut Ur Oxycodone Screen Urine Methadone Screen Ur Barbiturates Screen U Tricyclic Antidepress Ur Phencyclidine Scrn Ur Amphetamines Screen U Methamphetamines Scrn Ur MDMA Scrn (Ecstasy) U Benzodiazepines Scrn Urine Cocaine Screen U Marijuana (THC) Screen Ketones A. baumannii (PCR) Estefany albicans (PCR) C. glabrata (PCR) C. krusei (PCR) C. parapsilosis (PCR) C. tropicalis (PCR) SARS-CoV-2 (PCR) Enterobacteriac sp PCR E. cloacae complex PCR Enterococcus sp PCR E. coli (PCR) H. influenzae (PCR) Klebsiella oxytoca PCR Klebsiella pneumoniae List. monocytogenes PCR N. meningitidis (PCR) Proteus species (PCR) Serratia marcescens PCR Staphylococcus sp PCR Staph aureus (PCR) mecA-Methicil Res Gene Streptococcus sp PCR Group A Strep (PCR) Strep agalactiae (PCR) Strep pneumoniae (PCR) P. aeruginosa (PCR) Corby/B-Vanco Res Genes KPC-Carbap Res Gene PCR PFSH Medical History Abscess Chronic abdominal pain Cyclic vomiting syndrome Family history of angioedema Marijuana use, continuous MRSA (methicillin resistant staph aureus) culture positive Pancreatitis Surgical History Hx of appendectomy Hx of cholecystectomy Family History Father Hypertension Mother Diabetes mellitus Daughter Angio-edema Other Colon cancer Social History household members: spouse Smoking Status: Current every day smoker alcohol intake: current Discharge Plan Discharge Plan Patient Disposition: Home Provider Discharge Comment: I've increased your potassium to 40mEq which is 2 pills per day now. I've also put you on spironolactone in place of your amlodipine for your HTN which will help keep your potassium levels up. Discharge orders & Medications Prescriptions: New spironolactone 25 mg tablet 25 mg PO DAILY Qty: 90 0RF Continued fluconazole 200 mg tablet 200 mg PO WEEKLY 28 Days Qty: 4 0RF Rx Instructions: take 1 tablet once weekly until rash resolves up to 4 weeks bupropion HCl 100 mg tablet sustained-release 12 hr 100 mg PO DAILY Qty: 90 0RF Changed potassium chloride 20 mEq tablet extended release 40 meq PO DAILY Qty: 90 0RF Discontinued amlodipine 5 mg tablet 5 mg PO DAILY Label Comments: take 1 tablet by mouth once daily Follow up/Referrals: Joanna Storm MD [Primary Care Provider] - Discharge Data Primary Care Provider: Joanna Storm Attending Provider: Marisela Lane VTE Deep Vein Thrombosis/Pulmonary Embolism Present on Admission: No
--- NOTE | 2022-07-25 10:49 | CM.DANOTE ---
DCP: Case received, EMR reviewed and met with patient. Spouse, Narendra, was at bedside. Introduced self and role. Was able to obtain some health information from patient. DCP assessment completed with information currently available. Patient is a 46 year old female who admitted yesterday afternoon to the care of the hospitalist team. PCP: Dr. Storm Payer: confirmed: No insurance currently Patient came to the hospital via private vehicle secondary to having increased nausea and vomiting. Patient has history of cyclic vomiting. Patient was noted t0 Discharge Planning/Care Management CM Discharge Assessment Start: 07/25/22 10:48 Freq: Status: Active Protocol: Document 07/25/22 10:48 (Rec: 07/25/22 10:49 [id number]) Discharge Planning Assessment Assigned Quill Buncher And Sorter Sera Elias RN/Corn Lab Technician Advance Directives? No History Provided By Patient,Medical Record Household Members spouse Type of transporation used prior to Drives own vehicle admit Independent with ADL's Yes Is patient alert and oriented? Yes Caregiver for Another No Barriers to Discharge No Discharge Plan Home Transportation Arrangement Family to provide transport Referrals Initiated None needed Whiteboard Updated in Patient Room with Yes name and ext. # of Quill Buncher And Sorter Review Status In Process Next Review Type Continued Stay Review
--- NOTE | 2022-07-25 10:58 | CM.DANOTE ---
DCP: Case received, EMR reviewed and met with patient. Spouse, Narendra, was also at bedside. Was able to get some information from patient, regarding some health information. DCP assessment completed with information currently available. Patient is a 46 year old female who admitted yesterday afternoon to the care of the hospitalist team. PCP: Dr. Storm. Payer: confirmed: No insurance currently Patient came to the hospital via private vehicle secondary to having nausea and vomiting. Patient has history of cyclic vomiting, and has been here for these symptoms recently. Patient has history of THC and cocaine use, and drinks daily. Patient was noted to be hypokalemic. Patient was admitted for epigastric pain, hypokalemia. Met with patient, spouse in the room. 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 She resides in [place] with spouse, Narendra. Patient indicated, she will be on her 's insurance soon, but has no current insurance. Gave patient a [employer] application. Noted, admission change group had also discussed patient applying for Medicaid, and fay application as well. Patient indicated, she is feeling better, and wants to go home. P: Patient has discharge orders for home today. Fay application given to patient. Sera Elias RN/Reliability Manager Discharge Planning/Care Management CM Discharge Assessment Start: 07/25/22 10:48 Freq: Status: Active Protocol: Document 07/25/22 10:48 (Rec: 07/25/22 10:49 [id number]) Discharge Planning Assessment Assigned Throw Out Clerk Sera Elias RN/Reliability Manager Advance Directives? No History Provided By Patient,Medical Record Household Members spouse Type of transporation used prior to Drives own vehicle admit Independent with ADL's Yes Is patient alert and oriented? Yes Caregiver for Another No Barriers to Discharge No Discharge Plan Home Transportation Arrangement Family to provide transport Referrals Initiated None needed Whiteboard Updated in Patient Room with Yes name and ext. # of Throw Out Clerk Review Status In Process Next Review Type Continued Stay Review
--- NOTE | 2022-07-25 11:13 | PC.NURSE ---
Pt is AxOx4, independent and cooperative. VSS, pt denies n/v, and pain. Pt ate well and took shower. Pt recieved PO Potassium. Pt was cleared from MD and ready to d/c home. Pt was prescribed little higher dose of potassium. D/c instruction given to pt and pt verbalized understanding. No other changes. Upon d/c midline is removed.
== END 2022-07-25 10:40 | disposition home or self-care (01) ==
LOC: ED 13:02 → AC 13:04
PROVIDERS: Internal Medicine; Student in an Organized Health Care Education/Training Program; Admitting Provider Neuromusculoskeletal Medicine, Sports Medicine; Emergency Provider Emergency Medicine; Family Provider Internal Medicine; PCP Internal Medicine; Referring Provider Emergency Medicine; Visit Provider Neuromusculoskeletal Medicine, Sports Medicine
DX: R11.15 Cyclical vomiting syndrome unrelated to migraine (principal); R10.13 Epigastric pain; E87.6 Hypokalemia; F41.9 Anxiety disorder, unspecified; I10 Essential (primary) hypertension; Z20.822 Contact with and (suspected) exposure to COVID-19
CPT/HCPCS: 36415; 74177; 80048; 80053; 80305; 80320; 82009; 82805; 83605; 83690; 83735; 84132; 85025; 87040; 87077; 87150; 87186; 87205; 87635; 93005; 96365; 96366; 96372; 96375; 96376; 99285; C9803; G0378; C9113; J0171; J1200; J1630; J1650; J2930; Q9967

== ENCOUNTER 2022-10-15 18:09 | Inpatient (IN) | payer BC, SELFPAY ==
[2022-07-24 17:01] VITALS: BMI 21.8
[2022-10-15] VITALS (38 sets, daily range): BP systolic 77–244; BP diastolic 50–157; PULSE 75–139; RESP 16–52; O2SAT 85–100
[2022-10-15] MEDS: SODIUM CHLORIDE 0.9% 1,000 ML 1000 ML IV ×2 (18:38→19:39)
[2022-10-15] MEDS: FAMOTIDINE 20 MG/2 ML VIAL 40 MG IV (18:38)
[2022-10-15] MEDS: methylPREDNISolone 125 MG/2 ML VIAL IV (18:38)
[2022-10-15] MEDS: EPINEPHrine 1 MG/ML 0.5 MG IM (18:39)
[2022-10-15] MEDS: diphenhydrAMINE 50 MG/ML VIAL IM (18:40)
[2022-10-15] MEDS: TRANEXAMIC ACID 1,000 MG in SODIUM CHLORIDE 0.9% 100 ML 200 MG IV (18:46)
[2022-10-15] MEDS: LORazepam 2 MG/ML INJ 0.5 MG IV (18:53)
--- NOTE | 2022-10-15 19:36 | PC.NURSE ---
pt lying on right side with eyes closed resp even and unlabored
[2022-10-15] MEDS: ETOMIDATE 2 MG/ML 10 ML VIAL 20 MG IV (20:19)
[2022-10-15] MEDS: SUCCINYLCHOLINE 200 MG/10 ML VIAL 120 MG IV (20:20)
[2022-10-15] MEDS: propofoL 200 MG/20 ML VIAL 80 MG IV ×5 (20:24→22:50)
[2022-10-15] MEDS: propofoL 1,000 MG/100 ML VIAL 5.715 MG IV (20:30)
[2022-10-15] MEDS: ROCURONIUM 50 MG/5 ML INJ 100 MG IV (20:30)
--- NOTE | 2022-10-15 20:35 | DI.RAD.S_ITS ---
PROCEDURE: XR CHEST 1V INDICATIONS: intubation TECHNIQUE: One view of the chest was acquired. COMPARISON: [facility], CR, XR CHEST 1V, 06/30/2022, 9:02. FINDINGS: Surgical changes and devices: There is a new endotracheal tube with the tip approximately 6.5 cm from the juan. A right internal jugular catheter is present with the tip projecting over the superior vena cava. A new nasogastric tube extending into the stomach is also demonstrated with the tip not included on the current study. Lungs and pleura: There is pulmonary vascular prominence suggestive of mild edema. No pleural effusions or pneumothorax. Mediastinum: Mediastinal contours appear normal. Heart size is normal. Bones and chest wall: No suspicious bony lesions. Overlying soft tissues appear unremarkable. IMPRESSION: 1. New endotracheal tube tip approximately 6.5 cm from the juan. Consider advancement by approximately 2 cm. 2. Pulmonary vascular prominence suggestive of mild edema. Dictated by: Devin Ambriz M.D. on 10/15/2022 at 21:20 Approved by: Devin Ambriz M.D. on 10/15/2022 at 21:25
[2022-10-15] MEDS: EPINEPHrine 1 MG/ML (20:58)
[2022-10-15 21:00] LABS: Appearance Urine UA CLEAR; Bilirubin Urine UA NEGATIVE (NEGATIVE); Color Urine UA YELLOW; Glucose Urine UA 1+ g/dL (Negative); Ketones Urine UA NEGATIVE (NEGATIVE); Leukocyte Esterase Urine UA NEGATIVE (NEGATIVE); Nitrite Urine UA NEGATIVE (Negative); Occult Blood Urine UA TRACE-LYSED (Negative); Protein Urine UA 1+ (Negative); Urobilinogen Urine UA 0.2 E.U./dL (0.2)
--- NOTE | 2022-10-15 21:06 | PC.NURSE ---
[id number]: Pt in room with ECHOCARDIOLOGIST. ECHOCARDIOLOGIST industrial relations director quevedo requesting RN assistance. Rasheeda Bauer, RN primary nurse. Pt stating she needs to use the restroom. RN noted that pt's angioedema was worsening with tongue increasing in size and Dr Foster made aware. Dr Foster received verbal consent to inubate pt for angioedema. YULIET Lockett secondary gave 0.3mg epi IM given to pt in L deltoid. Pt on cardiac monitoring, 15L NRB in place for pre induction, RT called and at bedside. Ventilator prepared. RSI medications prepared. Time out performed. Pt intubated by Dr Foster with 7.0 ETT 23@ teeth. +BS, no wheezing heard. ETCO2 40. Vent settings 400/16/50/5. Sedated with propofol gtt, fentanyl gtt. Epi gtt at 1mcg/min for angioedema control. 18F OG tube placed with +gastric content return and attached to LIS. R triple lumen CL placed by Dr Foster. CXR for placement confirmed. 16F staples placed and urine obtained and sent. Pt warmed with warm blankets and warmed room. made aware of situation.
[2022-10-15] MEDS: MIDAZOLAM 5 MG/ML VIAL 4 MG IV (21:07)
[2022-10-15] MEDS: dilTIAZem 5 MG/ML SDV 20 MG IV (21:09)
--- NOTE | 2022-10-15 21:13 | ED_ITS ---
HPI - Allergic Reaction General Chief complaint: Allergic Reaction Stated complaint: Keeps biting tongue, Jaw clenched Time Seen by Provider: 10/15/22 18:10 Source: patient Mode of arrival: Ambulatory History of Present Illness HPI narrative: 46-year-old woman with a long history of cyclic vomiting, polysubstance abuse and angioedema presents with swelling to her tongue, clenched jaw and complaints that she is continuing to bite her tongue. She states this has been going on for the last approximately hour and is getting worse. She is having difficulty talking because of the tongue swelling and the clenched jaw. Her partner accomp anies her and notes that she has not recently had a fever, her vomiting has been relatively well controlled, she has not been having abdominal pain today. States she has stopped using methamphetamines, no recent use of narcotics does occasionally smoke marijuana. No recent fever, cough, change to medications, abdominal pain, constipation, diarrhea. Related Data Previous Rx's Medication Instructions Recorded bupropion HCl 100 mg tablet,12 hr 100 mg PO DAILY #90 ea 07/25/22 sustained-release potassium chloride 20 mEq 40 meq PO DAILY #90 tabs 07/25/22 tablet,extended release spironolactone 25 mg tablet 25 mg PO DAILY #90 tabs 07/25/22 Allergies Allergy/AdvReac Type Severity Reaction Status Date / Time promethazine [PROMETHAZINE] Allergy Mild ERYTHEMA Verified 07/24/22 09:42 TO IV SITE PT STATES ABLE TO TAKE NC latex [LATEX] Allergy Unknown Verified 07/24/22 09:42 metoclopramide AdvReac Unknown DYSTONIA Verified 07/24/22 09:42 [METOCLOPRAMIDE] Review of Systems Review of Systems Narrative: Remainder of complete review of systems is otherwise unremarkable except for that included in the HPI. Patient History Medical History Abscess Chronic abdominal pain Cyclic vomiting syndrome Family history of angioedema Marijuana use, continuous MRSA (methicillin resistant staph aureus) culture positive Pancreatitis Surgical History Hx of appendectomy Hx of cholecystectomy Family History Father Hypertension Mother Diabetes mellitus Daughter Angio-edema Other Colon cancer Social History household members: spouse Smoking Status: Current every day smoker alcohol intake: current Smoking Status: Current every day smoker tobacco type: cigarettes and vaping alcohol intake frequency: 3 or more drinks per day Alcohol type: wine Substance Use Type: former substance user, marijuana, crack/cocaine and methamphetamine Exam Initial Vital Signs Initial Vital Signs: Vital Signs Pulse Rate 96 H 10/15/22 18:19 Respiratory Rate 18 10/15/22 18:19 Pulse Oximetry 98 10/15/22 18:19 Oxygen Delivery Method 10/15/22 18:19 General: Acutely ill-appearing, tongue is swollen with multiple bite jack along the tip, she is unable to open her jaw more than 2-3 mm and is having sputum foaming from the edges of her mouth. HEENT: Significantly swollen tongue, moist mucous membranes, jaw is tightly clenched and unable to be opened without jaw dislocation. No cervical adenopathy Neck: No JVD, supple Respiratory: Lungs are clear to auscultation, no wheezing no rales no rhonchi. Full and symmetrical air movement Cardiac: Tachycardic, without murmurs, no bruits Abdomen: Soft, nontender, good bowel tones, no flank pain Skin: Warm and dry, no rashes, poor peripheral perfusion Neurologic: Grossly neurologically intact with no obvious asymmetries or abnormalities Extremities: No trauma, poor perfusion upper and lower extremities Psych: Cooperative, clearly frightened and concerned that she is having increasing difficulty breathing. Procedures Central Line Placement Right IJ: Time of procedure: 19:00 Time Out Performed: Yes Patient Placed on Monitor/Pulse Ox: Yes MD Prep: mask, gown and gloves Central Line Prep: Chlorhexidine scrub and sterile drapes applied Ultrasound Used for Placement: Yes Central Line Lumen Inserted: triple Post Procedure: sutured in place, good blood return, all ports aspirated, flushed, capped and sterile dressing applied Post Procedure X-Ray: tip of catheter in good position and no pneumothorax seen Patient Tolerated Procedure: Well Intubation Time of Intubation: 19:00 Time out performed: Yes sedative: Etomidate Mg Given: 20 paralytic: Succinylcholine Mg Given: 120 Laryngoscope: fiber optic video scope Assist Device Used: fiber optic device ET Tube Size: 7 ET Tube Uncuffed: No Tube Placement Confirmation: Visualized tube passing through cords, Equal breath sounds bilaterally, No breath sounds over epigastrium, Confirmation by capnometry and Chest Xray Patient Tolerated Procedure: Well Course Orders Ordered: ED Orders 10/15/22 21:17 EKG-12 Lead Routine 10/15/22 22:56 ABO RH Type Stat Complete Blood Count AUTO DIFF Stat Comprehensive Metabolic Panel Stat FFP [Fresh Frozen Plasma] Stat Chlorhexidine Gluconate (Chlorhexidine Gluconate 15 Ml Cup) 15 ml PO Q6HR LINDA Last Admin: 10/16/22 01:36 Dose: 15 ml Documented By: ISABELLA Dexamethasone (Dexamethasone 4 Mg/Ml Vial) 4 mg IV Q6HR LINDA Last Admin: 10/16/22 01:36 Dose: 4 mg Documented By: ISABELLA Dextrose (Dextrose 50 % In Water 25 Gm/50 Ml Syringe) 25 gm IV PRN PRN PRN Reason: Hypoglycemia Diphenhydramine HCl (Diphenhydramine 50 Mg/Ml Vial) 50 mg IV Q6HR LINDA Last Admin: 10/16/22 01:36 Dose: 50 mg Documented By: ISABELLA Enoxaparin Sodium (Enoxaparin 40 Mg/0.4 Ml Syringe) 40 mg SUBCUT DAILY [facility] Propofol (Propofol) 1,000 mg in 100 mls @ 1.905 mls/hr IV TITRATE LINDA; Protocol Last Titration: 10/16/22 05:19 Dose: 0 mcg/kg/min, 0 mls/hr Documented By: Titration: 10/16/22 02:19 Dose: 5 mcg/kg/min, 1.905 mls/hr Documented By: Titration: 10/16/22 01:00 Dose: 10 mcg/kg/min, 3.81 mls/hr Documented By: Titration: 10/15/22 23:52 Dose: 25 mcg/kg/min, 9.525 mls/hr Documented By: Titration: 10/15/22 23:43 Dose: 30 mcg/kg/min, 11.431 mls/hr Documented By: Titration: 10/15/22 20:45 Dose: 35 mcg/kg/min, 13.336 mls/hr Documented By: Titration: 10/15/22 20:35 Dose: 20 mcg/kg/min, 7.62 mls/hr Documented By: Admin: 10/15/22 20:30 Dose: 15 mcg/kg/min, 5.715 mls/hr Documented By: JOSE Epinephrine HCl 4 mg/ Dextrose 250 mls @ 3.75 mls/hr IV TITRATE LINDA; Protocol Last Titration: 10/16/22 05:19 Dose: 3 mcg/min, 11.25 mls/hr Documented By: [facility] Titration: 10/16/22 01:36 Dose: 2 mcg/min, 7.5 mls/hr Documented By: Admin: 10/15/22 21:38 Dose: 1 mcg/min, 3.75 mls/hr Documented By: Admin: 10/15/22 21:30 Dose: Not Given Documented By: JOSE Fentanyl 1,000 mcg/ Dextrose 250 mls @ 11.113 mls/hr IV TITRATE LINDA; Protocol Last Titration: 10/16/22 02:19 Dose: 1.5 mcg/kg/hr, 23.814 mls/hr Documented By: Titration: 10/16/22 01:00 Dose: 1 mcg/kg/hr, 15.876 mls/hr Documented By: [facility] Titration: 10/15/22 21:50 Dose: 2 mcg/kg/hr, 31.752 mls/hr Documented By: Titration: 10/15/22 21:40 Dose: 1.5 mcg/kg/hr, 23.814 mls/hr Documented By: Admin: 10/15/22 21:17 Dose: 0.7 mcg/kg/hr, 11.113 mls/hr Documented By: JOSE Midazolam HCl 50 mg/ Dextrose 250 mls @ 25 mls/hr IV TITRATE LINDA; Protocol Last Infusion: 10/16/22 02:04 Dose: 2 mg/hr, 10 mls/hr Documented By: [facility] Infusion: 10/16/22 01:37 Dose: 1.44 mg/hr, 7.2 mls/hr Documented By: [facility] Infusion: 10/15/22 23:53 Dose: 6 mg/hr, 30 mls/hr Documented By: Admin: 10/15/22 23:28 Dose: 5 mg/hr, 25 mls/hr Documented By: JOSE Insulin Human Lispro (Insulin Lispro 100 Unit/Ml 3ml Vial) 0 unit SUBCUT ACHS LINDA; Protocol Propofol (Propofol 200 Mg/20 Ml Vial) 80 mg IV Q10MIN PRN PRN Reason: Sedation Last Admin: 10/15/22 22:50 Dose: 80 mg Documented By: Admin: 10/15/22 22:04 Dose: 80 mg Documented By: Admin: 10/15/22 20:44 Dose: 80 mg Documented By: Admin: 10/15/22 20:34 Dose: 80 mg Documented By: Admin: 10/15/22 20:24 Dose: 80 mg Documented By: JOSE Discontinued Medications Diltiazem HCl (Diltiazem 5 Mg/Ml Sdv) 20 mg IV NOW ONE Stop: 10/15/22 21:03 Last Admin: 10/15/22 21:09 Dose: 20 mg Documented By: JOSE Diphenhydramine HCl (Diphenhydramine 50 Mg/Ml Vial) 50 mg IV NOW ONE Stop: 10/15/22 18:25 Last Admin: 10/15/22 18:43 Dose: Not Given Documented By: JOSHUA Diphenhydramine HCl (Diphenhydramine 50 Mg/Ml Vial) 50 mg IM NOW ONE Stop: 10/15/22 18:29 Last Admin: 10/15/22 18:40 Dose: 50 mg Documented By: JOSHUA Epinephrine HCl (Epinephrine 1 Mg/Ml) 0.5 mg IM NOW ONE Stop: 10/15/22 18:25 Last Admin: 10/15/22 18:39 Dose: 0.5 mg Documented By: JOSHUA Etomidate (Etomidate 2 Mg/Ml 10 Ml Vial) 20 mg IV NOW ONE Stop: 10/15/22 20:20 Last Admin: 10/15/22 20:19 Dose: 20 mg Documented By: JOSE Famotidine (Famotidine 20 Mg/2 Ml Vial) 40 mg IV DAILY ONE Stop: 10/15/22 18:26 Last Admin: 10/15/22 18:38 Dose: 40 mg Documented By: JOSHUA Sodium Chloride (Normal Saline 0.9%) 1,000 mls @ 1,000 mls/hr IV BOLUS ONE Stop: 10/15/22 19:25 Last Infusion: 10/15/22 19:40 Dose: 0 mls/hr Documented By: Admin: 10/15/22 18:38 Dose: 1,000 mls/hr Documented By: JOSHUA Tranexamic Acid 1,000 mg/ (Sodium Chloride) 100 mls @ 200 mls/hr IV NOW ONE Stop: 10/15/22 19:05 Last Infusion: 10/15/22 19:24 Dose: 0 mls/hr Documented By: Admin: 10/15/22 18:46 Dose: 200 mls/hr Documented By: JOSHUA Sodium Chloride (Normal Saline 0.9%) 1,000 mls @ 1,000 mls/hr IV BOLUS ONE Stop: 10/15/22 19:35 Last Infusion: 10/15/22 21:28 Dose: 0 mls/hr Documented By: Admin: 10/15/22 19:39 Dose: 1,000 mls/hr Documented By: CHRISTOPHER Epinephrine HCl 4 mg/ Dextrose 250 mls @ 3.75 mls/hr IV TITRATE LINDA; Protocol Last Admin: 10/15/22 21:57 Dose: Not Given Documented By: JOSE Propofol (Propofol) 1,000 mg in 100 mls @ 1.905 mls/hr IV TITRATE LINDA; Protocol Last Admin: 10/15/22 21:30 Dose: Not Given Documented By: JOSE Lorazepam (Lorazepam 2 Mg/Ml Inj) 0.5 mg IV NOW ONE Stop: 10/15/22 18:48 Last Admin: 10/15/22 18:53 Dose: 0.5 mg Documented By: JOSHUA Methylprednisolone (Methylprednisolone 125 Mg/2 Ml Vial) 125 mg IV NOW ONE Stop: 10/15/22 18:25 Last Admin: 10/15/22 18:38 Dose: 125 mg Documented By: JOSHUA Midazolam HCl (Midazolam 5 Mg/Ml Vial) 4 mg IV NOW ONE Stop: 10/15/22 21:03 Last Admin: 10/15/22 21:07 Dose: 4 mg Documented By: JOSE Rocuronium [place] (Rocuronium 50 Mg/5 Ml Inj) 100 mg IV NOW ONE Stop: 10/15/22 21:49 Last Admin: 10/15/22 20:30 Dose: 100 mg Documented By: JOSE Succinylcholine Chloride (Succinylcholine 200 Mg/10 Ml Vial) 120 mg IV NOW ONE Stop: 10/15/22 20:21 Last Admin: 10/15/22 20:20 Dose: 120 mg Documented By: JOSE Vital Signs Vital signs: Vital Signs - 8 hr 10/15/22 22:10 10/15/22 22:10 11/17/22 22:15 Pulse Rate 104 H Respiratory Rate 24 Blood Pressure 104/75 106/76 Pulse Oximetry 95 10/15/22 22:15 10/15/22 22:20 10/15/22 22:20 Pulse Rate 98 H 97 H Respiratory Rate 26 H 25 H Blood Pressure 107/72 Pulse Oximetry 95 96 10/15/22 22:30 10/15/22 22:30 10/15/22 22:40 Pulse Rate 95 H 94 H Respiratory Rate 25 H 25 H Blood Pressure 105/73 Pulse Oximetry 98 99 10/15/22 22:40 10/15/22 22:51 10/15/22 22:51 Pulse Rate 115 H Respiratory Rate 22 Blood Pressure 106/73 77/50 L Pulse Oximetry 85 L 10/15/22 22:52 10/15/22 22:52 Pulse Rate 105 H Respiratory Rate 52 H Blood Pressure 128/71 Pulse Oximetry 96 MDM - Allergic Reaction Lab Data Result diagrams: 10/15/22 22:56 10/15/22 22:56 Labs: Lab Results 10/15/22 10/15/22 10/15/22 Range/Units 20:26 20:26 20:44 WBC (4.5-11.0) X10^3/uL RBC (4.0-5.2) X10^6/uL Hgb (12.0-16.0) g/dL Hct (36-46) % MCV (80-100) fL MCH (26-34) PG MCHC (30-36) % RDW (11.6-14.8) % Plt Count (150-400) X10^3/uL Neut % (Auto) (50-75) % Lymph % (Auto) (25-40) % [place] % (Auto) (3-14) % Eos % (Auto) (2-4) % Baso % (Auto) (0-2) % Neut # (Auto) (5991-2819) /uL Lymph # (Auto) (8915-3546) /uL [place] # (Auto) (0-900) /uL Eos # (Auto) (0-450) /uL Baso # (Auto) (0-100) /uL Sodium (137-145) mmol/L Potassium (3.4-5.1) mmol/L Chloride (98-107) mmol/L Carbon Dioxide (22-32) mmol/L BUN (7-17) mg/dL Creatinine (0.52-1.04) mg/dL Estimated GFR (>60) mL/min BUN/Creatinine Ratio (6-22) Glucose (70-100) mg/dL Calcium (8.4-10.2) mg/dL Total Bilirubin (0.2-1.3) mg/dL AST (14-36) IU/L ALT (<35) IU/L Alkaline Phosphatase (38-126) U/L Total Protein (6.3-8.2) g/dL Albumin (3.5-5.0) g/dL Globulin (1.7-4.1) g/dL Albumin/Globulin Ratio (1.0-2.8) Urine Color Yellow Urine Appearance Clear Urine pH 7.0 (4.5-8.0) Ur Specific [place] 1.010 (1.000-1.035) Urine Protein 1+ H (Negative) Urine Glucose (UA) 1+ H (Negative) g/dL Urine Ketones Negative (NEGATIVE) Urine Occult Blood Trace-lysed (Negative) Urine Nitrate Negative (Negative) Urine Bilirubin Negative (NEGATIVE) Urine Urobilinogen 0.2 (0.2) E.U./dL Ur Leukocyte Esterase Negative (NEGATIVE) Urine RBC 0-1/hpf (0-5/HPF) Urine WBC None seen (0-5/HPF) Ur Squamous Epith Cells 0-1 /hpf (0-5/HPF) Ur Transition Epith Cell 0-1/hpf (0-5/HPF) Urine Bacteria None seen (None) Ur Culture Indicated? Cult not indicated U Opiates 300ng/mL cut Negative (Negative) Ur Oxycodone Screen Negative (Negative) Urine Methadone Screen Negative (Negative) Ur Barbiturates Screen Negative (Negative) U Tricyclic Antidepress Negative (Negative) Ur Phencyclidine Scrn Negative (Negative) Ur Amphetamines Screen Negative (Negative) U Methamphetamines Scrn Negative (Negative) Ur MDMA Scrn (Ecstasy) Negative (Negative) U Benzodiazepines Scrn Negative (Negative) Urine Cocaine Screen Negative (Negative) U Marijuana (THC) Screen Positive H (Negative) Chlamy pneumoniae PCR Not detected (Not Detect) Adenovirus (PCR) Detected H (Not Detect) B. pertussis DNA (PCR) Not detected (Not Detecte) B.parapertussis DNA PCR Not detected (Not Detecte) Coronavirus OC43 (PCR) Not detected (Not Detect) Coronavirus HKU1 (PCR) Not detected (Not Detect) Coronavirus 229E (PCR) Not detected (Not Detect) SARS-CoV-2 (PCR) Not detected (Not Detecte) Coronavirus NL63 (PCR) Not detected (Not Detect) Human Metapneumovir PCR Not detected (Not Detect) Influenza Type A (PCR) Not detected (Not Detect) Influenza Type B (PCR) Not detected (Not Detect) M. pneumoniae (PCR) Not detected (Not Detect) Parainfluenza 1 (PCR) Not detected (Not Detect) Parainfluenza 2 (PCR) Not detected (Not Detect) Parainfluenza 3 (PCR) Not detected (Not Detect) Parainfluenza 4 (PCR) Not detected (Not Detect) RSV (PCR) Not detected (Not Detect) Entero/Rhino (PCR) Not detected (Not Detect) Blood Type 10/15/22 10/15/22 10/15/22 Range/Units 22:56 22:56 22:56 WBC 11.1 H (4.5-11.0) X10^3/uL RBC 3.93 L (4.0-5.2) X10^6/uL Hgb 12.3 (12.0-16.0) g/dL Hct 37.3 (36-46) % MCV 94.9 (80-100) fL MCH 31.3 (26-34) PG MCHC 33.0 (30-36) % RDW 13.2 (11.6-14.8) % Plt Count 238 (150-400) X10^3/uL Neut % (Auto) 94.4 H (50-75) % Lymph % (Auto) 3.9 L (25-40) % [place] % (Auto) 1.1 L (3-14) % Eos % (Auto) 0.1 L (2-4) % Baso % (Auto) 0.5 (0-2) % Neut # (Auto) 50393 H (3609-5516) /uL Lymph # (Auto) 400 L (2895-9934) /uL [place] # (Auto) 100 (0-900) /uL Eos # (Auto) 0 (0-450) /uL Baso # (Auto) 100 (0-100) /uL Sodium 143 (137-145) mmol/L Potassium 3.5 (3.4-5.1) mmol/L Chloride 106 (98-107) mmol/L Carbon Dioxide 24 (22-32) mmol/L BUN 7 (7-17) mg/dL Creatinine 0.72 (0.52-1.04) mg/dL Estimated GFR > 60 (>60) mL/min BUN/Creatinine Ratio 9.7 (6-22) Glucose 296 H (70-100) mg/dL Calcium 8.0 L (8.4-10.2) mg/dL Total Bilirubin 0.5 (0.2-1.3) mg/dL AST 65 H (14-36) IU/L ALT 32 (<35) IU/L Alkaline Phosphatase 78 (38-126) U/L Total Protein 7.7 (6.3-8.2) g/dL Albumin 4.2 (3.5-5.0) g/dL Globulin 3.5 (1.7-4.1) g/dL Albumin/Globulin Ratio 1.2 (1.0-2.8) Urine Color Urine Appearance Urine pH (4.5-8.0) Ur Specific [place] (1.000-1.035) Urine Protein (Negative) Urine Glucose (UA) (Negative) g/dL Urine Ketones (NEGATIVE) Urine Occult Blood (Negative) Urine Nitrate (Negative) Urine Bilirubin (NEGATIVE) Urine Urobilinogen (0.2) E.U./dL Ur Leukocyte Esterase (NEGATIVE) Urine RBC (0-5/HPF) Urine WBC (0-5/HPF) Ur Squamous Epith Cells (0-5/HPF) Ur Transition Epith Cell (0-5/HPF) Urine Bacteria (None) Ur Culture Indicated? U Opiates 300ng/mL cut (Negative) Ur Oxycodone Screen (Negative) Urine Methadone Screen (Negative) Ur Barbiturates Screen (Negative) U Tricyclic Antidepress (Negative) Ur Phencyclidine Scrn (Negative) Ur Amphetamines Screen (Negative) U Methamphetamines Scrn (Negative) Ur MDMA Scrn (Ecstasy) (Negative) U Benzodiazepines Scrn (Negative) Urine Cocaine Screen (Negative) U Marijuana (THC) Screen (Negative) Chlamy pneumoniae PCR (Not Detect) Adenovirus (PCR) (Not Detect) B. pertussis DNA (PCR) (Not Detecte) B.parapertussis DNA PCR (Not Detecte) Coronavirus OC43 (PCR) (Not Detect) Coronavirus HKU1 (PCR) (Not Detect) Coronavirus 229E (PCR) (Not Detect) SARS-CoV-2 (PCR) (Not Detecte) Coronavirus NL63 (PCR) (Not Detect) Human Metapneumovir PCR (Not Detect) Influenza Type A (PCR) (Not Detect) Influenza Type B (PCR) (Not Detect) M. pneumoniae (PCR) (Not Detect) Parainfluenza 1 (PCR) (Not Detect) Parainfluenza 2 (PCR) (Not Detect) Parainfluenza 3 (PCR) (Not Detect) Parainfluenza 4 (PCR) (Not Detect) RSV (PCR) (Not Detect) Entero/Rhino (PCR) (Not Detect) Blood Type O Positive Point of Care Testing Test Results Negative Urine Dip Bedside Urine Glucose 250 mg/dl Bedside Urine Bilirubin - Negative Bedside Urine Ketone +/- 5 Urine Specific [place] 1.020 Bedside Urine Occult Blood +/- Bedside Urine pH 6.0 Bedside Urine Protein + 30 Bedside Urine Nitrite - Negative Bedside Urine Leukocytes - Negative Esterase Imaging Data Chest x-ray: Radiologist's Impression: FINDINGS:? ? Surgical changes and devices:? There is a new endotracheal tube with the tip approximately 6.5 cm from the juan.? A right internal jugular catheter is present with the tip projecting over the superior vena cava.? A new nasogastric tube extending into the stomach is also demonstrated with the tip not included on the current study. ? Lungs and pleura:? There is pulmonary vascular prominence suggestive of mild edema.? No pleural effusions or pneumothorax.? ? Mediastinum:? Mediastinal contours appear normal.? Heart size is normal.? ? Bones and chest wall:? No suspicious bony lesions.? Overlying soft tissues appear unremarkable.? ? IMPRESSION:? ? 1.? New endotracheal tube tip approximately 6.5 cm from the juan.? Consider advancement by approximately 2 cm. ? 2. Pulmonary vascular prominence suggestive of mild edema. ? ? Dictated by: Devin Ambriz M.D. on 10/15/2022 at 21:20 ? ? ECG Data Interpretation: Sinus tachycardia at 1:36 a.m. Normal intervals, normal axis No acute ischemic changes MDM Narrative Medical decision making narrative: 46-year-old woman brought into room 1 with clenched jaw and developing an gioedema increased anxiety with oxygen saturations in the upper 90%. No significant wheeze but poor upper and lower extremity overall perfusion. Mildly tachycardic and clearly anxious. Her partner reports no new foods, exposures medications recreational or prescribed. IV access is attempted and she is 2 peripherally clamped down. An 18 gauge is placed in her external jugular by me. She is given 0.4 mg of IM epi, 50 mg of IM Benadryl. After IV access was obtained she is given fluids, 125 mg of Solu- Medrol, IV famotidine and 1 g of TXA for presumed angioedema. FFP is ordered again for angioedema. Patient responded quite well to the epinephrine with her tongue returning almost to normal size. Her jaw loosening up, able to speak. No wheezing was appreciated. She is doing well for approximately an hour when all the sudden she sat upright with dramatic tongue swelling with almost her entire tongue extruding out of her mouth, peripheral perfusion was again an issue and decision was made to urgently intubate. Given the concern for difficult airway multiple backup options were immediately available including crack tray. Fortunately I was able to get behind her tongue and relatively easily pass a 7 0 cuffed tube into the trachea. IV access in the external jugular was tenuous so central line is placed. Given the recurrence of her symptoms additional IM epinephrine is given and epinephrine drip is ordered. We had a moderate amount of difficulty in getting her adequately sedated. She had multiple large doses of propofol and large dose of propofol drip. IV fentanyl was added. Once we were eventually able to get her adequately sedated her heart rate came down from the 140 to the 90 range. She remained in sinus rhythm. X-ray shows the ET tube is slightly high central line is appropriately placed no pneumothorax. Labs eventually return positive for adenovirus with chemistry panel and CBC relatively unremarkable. Care is reviewed with the hospitalist. With appropriate sedation blood pressure and heart rate are controlled. Tongue has returned to almost normal size. She had initially been on an epi drip but this was discontinued. At no point was she significantly hypotensive. Peripheral perfusion is significantly improved. Patient is admitted to the intensive care unit for further monitoring and evaluation. Critical Care Time Critical Care Time Critical Care Time: Yes Total Critical Care Time: 39 Attestation: Critical care time is separate from other billable procedures. There is a high probability of a significant, sudden or life-threatening deterioration that requires my full and direct attention, intervention and personal management. This critical care time includes consultation with family and other consulting doctors, review of records, and interpretation of data from labs, EKGs and imaging as well as managements of anaphylaxis with angioedema Discharge Plan Departure Patient Disposition: Admitted As Inpatient Clinical Impression: Angioedema Qualifiers: Encounter type: initial encounter Qualified Code(s): T78.3XXA - Angioneurotic edema, initial encounter Anaphylaxis Qualifiers: Encounter type: initial encounter Qualified Code(s): T78.2XXA - Anaphylactic shock, unspecified, initial encounter Admit Date/Time: 10/15/22 22:58 Admit Provider: Danial Fortune
[2022-10-15 21:15] LABS: UR Morphine/Opiate cutoff 300 Negative (Negative); Ur Creatinine Normal (Normal); Ur Specific Gravity Normal (Normal); Urine Amphetamines Negative (Negative); Urine Barbiturates Negative (Negative); Urine Benzodiazepines Negative (Negative); Urine Cocaine Negative (Negative); Urine MDMA Negative (Negative); Urine Methadone Negative (Negative); Urine Methamphetamines Negative (Negative); Urine Oxycodone Negative (Negative); Urine Phencyclidine Negative (Negative); Urine Tetrahydrocannabinol Positive (Negative); Urine Tricyclic Antidepressant Negative (Negative); Urine pH Normal (Normal)
[2022-10-15] MEDS: fentaNYL 1,000 MCG in DEXTROSE 5% IN WATER 230 ML 11.113 MCG IV (21:17)
[2022-10-15 21:24] LABS: Bacteria Urine None Seen; Culture Indicated Urine Cult Not Indicated; RBC Urine 0-1/HPF (0-5/HPF); Squamous Epithelial Cell Urine 0-1 /HPF (0-5/HPF); Transitional Epi Cells Urine 0-1/HPF (0-5/HPF); WBC Urine None Seen (0-5/HPF)
[2022-10-15] MEDS: EPINEPHrine 4 MG in DEXTROSE 5% IN WATER 246 ML 3.75 MG IV (21:38)
--- NOTE | 2022-10-15 23:02 | PC.NURSE ---
Addendum entered by Rasheeda Bauman R.N. 10/15/22 23:34: this was to be attached to the assessment done @ 1935 Original Note: did not receive pt until after all meds were given and pt was resting comfortably
[2022-10-15 23:09] LABS: Add Manual Diff / Slide Review NO; Basophils Absolute Auto 100 /uL (0-100); Basophils Percent Auto 0.5 % (0-2); Eosinophils Absolute Auto 0 /uL (0-450); Eosinophils Percent Auto 0.1 % (2-4); Hematocrit 37.3 % (36-46); Hemoglobin 12.3 g/dL (12.0-16.0); Lymphocytes Absolute Auto 400 /uL (1100-4500); Lymphocytes Percent Auto 3.9 % (25-40); Mean Corpuscular Hemoglobin 31.3 PG (26-34); Mean Corpuscular Volume 94.9 fL (80-100); Monocytes Absolute Auto 100 /uL (0-900); Monocytes Percent Auto 1.1 % (3-14); Neutrophils Absolute Auto 10500 /uL (1500-7000); Neutrophils Percent Auto 94.4 % (50-75); Platelet Count 238 X10^3/uL (150-400); Red Blood Cell Count 3.93 X10^6/uL (4.0-5.2); Red Cell Distribution Width 13.2 % (11.6-14.8); White Blood Cell Count 11.1 X10^3/uL (4.5-11.0)
[2022-10-15 23:19] LABS: Alanine Aminotransferase 32 IU/L (<35); Albumin 4.2 g/dL (3.5-5.0); Albumin Globulin Ratio 1.2 (1.0-2.8); Alkaline Phosphatase 78 U/L (38-126); Aspartate Aminotransferase 65 IU/L (14-36); BUN Creatinine Ratio 9.7 (6-22); Bilirubin Total 0.5 mg/dL (0.2-1.3); Blood Urea Nitrogen 7 mg/dL (7-17); Carbon Dioxide 24 mmol/L (22-32); Chloride 106 mmol/L (98-107); Estimated Glomerular Filt Rate > 60 mL/min (>60); Globulin 3.5 g/dL (1.7-4.1); Glucose 296 mg/dL (70-100); HEMOLYSIS < 15 (0-50); Potassium 3.5 mmol/L (3.4-5.1); Sodium 143 mmol/L (137-145); Total Protein 7.7 g/dL (6.3-8.2)
[2022-10-15] MEDS: MIDAZOLAM 50 MG in DEXTROSE 5% IN WATER 240 ML 25 MG IV (23:28)
--- NOTE | 2022-10-15 23:35 | PC.NURSE ---
pt resting at this time, after 2nd bolus of propofol, pt has been 1:1 since intubation d/t medications being adjusted, and monitoring pt's vs and airway
--- NOTE | 2022-10-15 23:57 | P.HP_ITS ---
History of Present Illness History of Present Illness Date Patient Seen: 10/15/22 Time Patient Seen: 23:30 Chief complaint: Keeps biting tongue, Jaw clenched Narrative: Ms. Yadav is a 46W with H angioedema, marijuana and cocaine use who presents to the hospital with sudden onset of tongue swelling. Patient is intubated when being examined. But per report she developed tongue swelling but had no food or medication exposures. She reportedly has no recently used cocaine. While in the ED she had rapid worsening of her respiratory status with enlarging tongue and was intubated. She had previously been administered epi, and after intubation was started on an epi drip. She has had C1, and C4 sent multiple times previously and these have resulted as normal. In the ED workup was done, vitals initially notable for tachycardia and hypertension. Labs notable for WBC 11.1, hgb 12.3, plts 238. Creatinin 0.72. She was initially difficult to sedate and ultimately sedation was improved on propofol, fentanyl, and versed. On these medications her blood pressure became hypotensive and she was continued on the epi drip. She was transferred to the ICU for further treatment. Patient History Medical History Abscess Chronic abdominal pain Cyclic vomiting syndrome Family history of angioedema Marijuana use, continuous MRSA (methicillin resistant staph aureus) culture positive Pancreatitis Surgical History Hx of appendectomy Hx of cholecystectomy Family & Social History Family History Father Hypertension Mother Diabetes mellitus Daughter Angio-edema Other Colon cancer Social History: household members spouse Safety & Behavioral: Feels Safe in Current Yes Environment Been Physically Hurt or No Threatened By a Person Tobacco & Substance use: Tobacco type e-cigarettes Smoking Status Current every day smoker alcohol intake current alcohol intake frequency 3 or more drinks per day Substance Use Type marijuana,crack/cocaine,former substance user, methamphetamine Meds Home Medications and Allergies Home Medications Medication Instructions Recorded Confirmed Type bupropion HCl 100 mg tablet,12 hr 100 mg PO DAILY #90 ea 07/25/22 Rx sustained-release potassium chloride 20 mEq 40 meq PO DAILY #90 tabs 07/25/22 Rx tablet,extended release spironolactone 25 mg tablet 25 mg PO DAILY #90 tabs 07/25/22 Rx Allergies Allergy/AdvReac Type Severity Reaction Status Date / Time promethazine [PROMETHAZINE] Allergy Mild ERYTHEMA Verified 07/24/22 09:42 TO IV SITE PT STATES ABLE TO TAKE CO latex [LATEX] Allergy Unknown Verified 07/24/22 09:42 metoclopramide AdvReac Unknown DYSTONIA Verified 07/24/22 09:42 [METOCLOPRAMIDE] Review of Systems Review of Systems Narrative: unable due to patient intubated and sedated Exam Vital Signs (past 8 hours): - 10/15/22 18:19 10/15/22 18:30 10/15/22 19:40 Pulse Rate 96 H 75 Respiratory Rate 18 Blood Pressure 213/111 H 172/103 H Pulse Oximetry 98 98 Oxygen Delivery Method Room Air Room Air 10/15/22 19:50 10/15/22 19:50 10/15/22 20:00 Pulse Rate 91 H Respiratory Rate 22 Blood Pressure 186/107 H 178/108 H Pulse Oximetry 100 Oxygen Delivery Method 10/15/22 20:00 10/15/22 20:10 10/15/22 20:10 Pulse Rate 87 96 H Respiratory Rate 26 H 37 H Blood Pressure 174/105 H Pulse Oximetry 100 100 Oxygen Delivery Method 10/15/22 20:17 10/15/22 20:17 10/15/22 20:21 Pulse Rate 108 H Respiratory Rate Blood Pressure 217/106 H 244/157 H Pulse Oximetry 99 Oxygen Delivery Method 10/15/22 20:21 10/15/22 20:30 10/15/22 20:31 Pulse Rate 121 H 109 H Respiratory Rate 24 34 H Blood Pressure 172/104 H Pulse Oximetry 90 L 99 Oxygen Delivery Method 10/15/22 20:31 10/15/22 20:36 10/15/22 20:36 Pulse Rate 110 H 127 H Respiratory Rate 27 H 16 Blood Pressure 186/123 H Pulse Oximetry 99 99 Oxygen Delivery Method 10/15/22 20:40 10/15/22 20:40 10/15/22 20:50 Pulse Rate 134 H Respiratory Rate 16 Blood Pressure 201/136 H 174/111 H Pulse Oximetry 99 Oxygen Delivery Method 10/15/22 20:50 10/15/22 21:00 10/15/22 21:00 Pulse Rate 129 H 135 H Respiratory Rate 16 16 Blood Pressure 188/134 H Pulse Oximetry 99 99 Oxygen Delivery Method 10/15/22 21:10 10/15/22 21:10 10/15/22 21:20 Pulse Rate 138 H 137 H Respiratory Rate 16 16 Blood Pressure 178/121 H Pulse Oximetry 99 97 Oxygen Delivery Method 10/15/22 21:20 10/15/22 21:30 10/15/22 21:30 Pulse Rate 139 H Respiratory Rate 16 Blood Pressure 187/129 H 175/118 H Pulse Oximetry 96 Oxygen Delivery Method 10/15/22 21:40 10/15/22 21:40 10/15/22 21:50 Pulse Rate 137 H 135 H Respiratory Rate 19 24 Blood Pressure 179/126 H Pulse Oximetry 96 96 Oxygen Delivery Method 10/15/22 21:50 10/15/22 22:00 10/15/22 22:00 Pulse Rate 129 H Respiratory Rate 26 H Blood Pressure 171/129 H 158/107 H Pulse Oximetry 98 Oxygen Delivery Method 10/15/22 22:10 10/15/22 22:10 10/15/22 22:15 Pulse Rate 104 H Respiratory Rate 24 Blood Pressure 104/75 106/76 Pulse Oximetry 95 Oxygen Delivery Method 10/15/22 22:15 10/15/22 22:20 10/15/22 22:20 Pulse Rate 98 H 97 H Respiratory Rate 26 H 25 H Blood Pressure 107/72 Pulse Oximetry 95 96 Oxygen Delivery Method 10/15/22 22:30 10/15/22 22:30 10/15/22 22:40 Pulse Rate 95 H 94 H Respiratory Rate 25 H 25 H Blood Pressure 105/73 Pulse Oximetry 98 99 Oxygen Delivery Method 10/15/22 22:40 10/15/22 22:51 10/15/22 22:51 Pulse Rate 115 H Respiratory Rate 22 Blood Pressure 106/73 77/50 L Pulse Oximetry 85 L Oxygen Delivery Method 10/15/22 22:52 10/15/22 22:52 10/15/22 22:59 Pulse Rate 105 H 96 H Respiratory Rate 52 H 39 H Blood Pressure 128/71 Pulse Oximetry 96 99 Oxygen Delivery Method 10/15/22 23:00 10/15/22 23:00 10/15/22 23:10 Pulse Rate 95 H Respiratory Rate 32 H Blood Pressure 96/61 96/64 Pulse Oximetry 99 Oxygen Delivery Method 10/15/22 23:10 10/15/22 23:20 10/15/22 23:20 Pulse Rate 94 H 94 H Respiratory Rate 42 H 42 H Blood Pressure 93/65 Pulse Oximetry 99 99 Oxygen Delivery Method 10/15/22 23:30 10/15/22 23:30 Pulse Rate 93 H Respiratory Rate 35 H Blood Pressure 91/63 Pulse Oximetry 99 Oxygen Delivery Method Oxygen Delivery Method Room Air Narrative Exam Narrative: GEN: intubated and sedated HEENT: PERRL, moist mucous membranes NECK: trachea midline, no JVD PULM: clear bilaterally CV: regular rate and rhythm, no murmurs ABD: soft, nontender EXT: warm and well perfused NEURO: sedated due to intubation Objective Labs Result Diagrams: 10/15/22 22:56 10/15/22 22:56 Labs: Laboratory Results - last 24 hr 10/15/22 10/15/22 10/15/22 20:26 20:26 22:56 WBC 11.1 H RBC 3.93 L Hgb 12.3 Hct 37.3 MCV 94.9 MCH 31.3 MCHC 33.0 RDW 13.2 Plt Count 238 Neut % (Auto) 94.4 H Lymph % (Auto) 3.9 L [place] % (Auto) 1.1 L Eos % (Auto) 0.1 L Baso % (Auto) 0.5 Neut # (Auto) 74458 H Lymph # (Auto) 400 L [place] # (Auto) 100 Eos # (Auto) 0 Baso # (Auto) 100 Sodium Potassium Chloride Carbon Dioxide BUN Creatinine Estimated GFR BUN/Creatinine Ratio Glucose Calcium Total Bilirubin AST ALT Alkaline Phosphatase Total Protein Albumin Globulin Albumin/Globulin Ratio Urine Color Yellow Urine Appearance Clear Urine pH 7.0 Ur Specific [place] 1.010 Urine Protein 1+ H Urine Glucose (UA) 1+ H Urine Ketones Negative Urine Occult Blood Trace-lysed Urine Nitrate Negative Urine Bilirubin Negative Urine Urobilinogen 0.2 Ur Leukocyte Esterase Negative Urine RBC 0-1/hpf Urine WBC None seen Ur Squamous Epith Cells 0-1 /hpf Ur Transition Epith Cell 0-1/hpf Urine Bacteria None seen Ur Culture Indicated? Cult not indicated U Opiates 300ng/mL cut Negative Ur Oxycodone Screen Negative Urine Methadone Screen Negative Ur Barbiturates Screen Negative U Tricyclic Antidepress Negative Ur Phencyclidine Scrn Negative Ur Amphetamines Screen Negative U Methamphetamines Scrn Negative Ur MDMA Scrn (Ecstasy) Negative U Benzodiazepines Scrn Negative Urine Cocaine Screen Negative U Marijuana (THC) Screen Positive H Blood Type 10/15/22 10/15/22 22:56 22:56 WBC RBC Hgb Hct MCV MCH MCHC RDW Plt Count Neut % (Auto) Lymph % (Auto) [place] % (Auto) Eos % (Auto) Baso % (Auto) Neut # (Auto) Lymph # (Auto) [place] # (Auto) Eos # (Auto) Baso # (Auto) Sodium 143 Potassium 3.5 Chloride 106 Carbon Dioxide 24 BUN 7 Creatinine 0.72 Estimated GFR > 60 BUN/Creatinine Ratio 9.7 Glucose 296 H Calcium 8.0 L Total Bilirubin 0.5 AST 65 H ALT 32 Alkaline Phosphatase 78 Total Protein 7.7 Albumin 4.2 Globulin 3.5 Albumin/Globulin Ratio 1.2 Urine Color Urine Appearance Urine pH Ur Specific [place] Urine Protein Urine Glucose (UA) Urine Ketones Urine Occult Blood Urine Nitrate Urine Bilirubin Urine Urobilinogen Ur Leukocyte Esterase Urine RBC Urine WBC Ur Squamous Epith Cells Ur Transition Epith Cell Urine Bacteria Ur Culture Indicated? U Opiates 300ng/mL cut Ur Oxycodone Screen Urine Methadone Screen Ur Barbiturates Screen U Tricyclic Antidepress Ur Phencyclidine Scrn Ur Amphetamines Screen U Methamphetamines Scrn Ur MDMA Scrn (Ecstasy) U Benzodiazepines Scrn Urine Cocaine Screen U Marijuana (THC) Screen Blood Type O Positive Assessment & Plan Assessment & Plan narrative: 1. Angioedema with respiratory failure -no clear precipitating factors, no Cam-inhibitors or other causative medications -previous testing showed normal C1 and C4 levels -patient received steroids, epinephrine, and anti-histamines in ED -continued to worsen respiratory status resulted in intubation and epinephrine drip -on propofol, fentanyl, and versed and difficult to keep sedated, possibly due to substance abuse -previously suspected cocaine as cause of angioedema, but this admission cocaine on UDS was negative -sizing machine operator consulted 2. Anxiety -hold well-butrin for now 3. Hypertension -hold spironolacatone for now 4. Hyperglycemia -check a1c 5. Hypotension -secondary to sedation -wean sedation as able, keep on epi for now CODE: Full Proxy: Narendra Issa, spouse I have utilized all available resources to reconcile the patient's home medications. Time Spent With Patient Critical Care time: I spent a total of 41 minutes of critical care time on this patient's care today; this time is exclusive of procedural time.
[2022-10-16] VITALS (102 sets, daily range): BP systolic 77–137; BP diastolic 50–102; PULSE 57–108; RESP 14–46; TEMP 35.8–37.1; O2SAT 98–100; BMI 26.4
--- NOTE | 2022-10-16 00:18 | PC.NURSE ---
[facility]-call him for any changes you can reach him on his cell phone after [phone] . If it is before 0300 please call the house if he is not at home her daughter Jeannine or her son Merritt will be there to answer phone [phone]
--- NOTE | 2022-10-16 00:28 | P.TELICUCN_ITS ---
History of Present Illness Consult details IF CAMERA ACTIVATED, patient seen via real-time interactive audiovisual communication: Camera activated Date Patient Seen: 10/16/22 Chief complaint: Keeps biting tongue, Jaw clenched Reason for consult: Angioedema Consent obtained for tele-drug regulatory affairs specialist care: Yes Patient Location: ICU Provider location (State): [place] Other participants/roles: RN Narrative: Patient is a 46 year old female with history of marijuana abuse, chronic abdominal pain, pancreatitis, and MRSA infection who is admitted to ICU for angioedema. By report patient has a history of angioedema of unknown etiology which she presented to the ER with tongue swelling. No reported food allergy. In ER, she developed respiratory distress which she emergently intubated. Received FFP, TXA, and solumedrol. Started on epinephrine gtt and sedated w/ propofol/fentanyl. She developed hypotension which versed gtt was added and propofol was decreased to 25 mcg. Sanitary Napkin Machine Tender consulted for further management. [facility] Medical History Abscess Chronic abdominal pain Cyclic vomiting syndrome Family history of angioedema Marijuana use, continuous MRSA (methicillin resistant staph aureus) culture positive Pancreatitis Surgical History Hx of appendectomy Hx of cholecystectomy Family History Father Hypertension Mother Diabetes mellitus Daughter Angio-edema Other Colon cancer Social History household members: spouse Smoking Status: Current every day smoker alcohol intake: current Current Medications Current Medications Medications: Home Medications bupropion HCl 100 mg tablet,12 hr sustained-release 100 mg PO DAILY #90 ea 07/25/22 [Rx] potassium chloride 20 mEq tablet,extended release 40 meq PO DAILY #90 tabs 07/25/22 [Rx] spironolactone 25 mg tablet 25 mg PO DAILY #90 tabs 07/25/22 [Rx] Visit Medications (administered) Generic Name Dose Route Start Last Admin Trade Name Freq PRN Reason Stop Dose Admin Propofol 1,000 mg in 100 mls @ 1.905 mls/hr 10/15/22 20:30 10/15/22 23:52 Propofol IV 25 mcg/kg/min TITRATE LINDA 9.525 mls/hr Titration Protocol 5 MCG/KG/MIN Epinephrine HCl 4 mg/ Dextrose 250 mls @ 3.75 mls/hr 10/15/22 20:45 10/15/22 21:57 IV Not Given TITRATE LINDA Protocol 1 MCG/MIN Epinephrine HCl 4 mg/ Dextrose 250 mls @ 3.75 mls/hr 10/15/22 21:00 10/15/22 21:38 IV 1 mcg/min TITRATE LINDA 3.75 mls/hr Administration Protocol 1 MCG/MIN Fentanyl 1,000 mcg/ Dextrose 250 mls @ 11.113 mls/hr 10/15/22 21:00 10/15/22 21:50 IV 2 mcg/kg/hr TITRATE LINDA 31.752 mls/hr Titration Protocol 0.7 MCG/KG/HR Propofol 1,000 mg in 100 mls @ 1.905 mls/hr 10/15/22 21:00 10/15/22 21:30 Propofol IV Not Given TITRATE LINDA Protocol 5 MCG/KG/MIN Midazolam HCl 50 mg/ Dextrose 250 mls @ 25 mls/hr 10/15/22 22:15 10/15/22 23:53 IV 6 mg/hr TITRATE LINDA 30 mls/hr Infusion Protocol 5 MG/HR Propofol 80 mg 10/15/22 20:48 10/15/22 22:50 Propofol 200 Mg/20 Ml Vial IV 80 mg Q10MIN PRN Administration Sedation Exam Vital Signs (past 8 hours): - 10/15/22 18:19 10/15/22 18:30 10/15/22 19:40 Pulse Rate 96 H 75 Respiratory Rate 18 Blood Pressure 213/111 H 172/103 H Pulse Oximetry 98 98 Oxygen Delivery Method Room Air Room Air 10/15/22 19:50 10/15/22 19:50 10/15/22 20:00 Pulse Rate 91 H Respiratory Rate 22 Blood Pressure 186/107 H 178/108 H Pulse Oximetry 100 Oxygen Delivery Method 10/15/22 20:00 10/15/22 20:10 10/15/22 20:10 Pulse Rate 87 96 H Respiratory Rate 26 H 37 H Blood Pressure 174/105 H Pulse Oximetry 100 100 Oxygen Delivery Method 10/15/22 20:17 10/15/22 20:17 10/15/22 20:21 Pulse Rate 108 H Respiratory Rate Blood Pressure 217/106 H 244/157 H Pulse Oximetry 99 Oxygen Delivery Method 10/15/22 20:21 10/15/22 20:30 10/15/22 20:31 Pulse Rate 121 H 109 H Respiratory Rate 24 34 H Blood Pressure 172/104 H Pulse Oximetry 90 L 99 Oxygen Delivery Method 10/15/22 20:31 10/15/22 20:36 10/15/22 20:36 Pulse Rate 110 H 127 H Respiratory Rate 27 H 16 Blood Pressure 186/123 H Pulse Oximetry 99 99 Oxygen Delivery Method 10/15/22 20:40 10/15/22 20:40 10/15/22 20:50 Pulse Rate 134 H Respiratory Rate 16 Blood Pressure 201/136 H 174/111 H Pulse Oximetry 99 Oxygen Delivery Method 10/15/22 20:50 10/15/22 21:00 10/15/22 21:00 Pulse Rate 129 H 135 H Respiratory Rate 16 16 Blood Pressure 188/134 H Pulse Oximetry 99 99 Oxygen Delivery Method 10/15/22 21:10 10/15/22 21:10 10/15/22 21:20 Pulse Rate 138 H 137 H Respiratory Rate 16 16 Blood Pressure 178/121 H Pulse Oximetry 99 97 Oxygen Delivery Method 10/15/22 21:20 10/15/22 21:30 10/15/22 21:30 Pulse Rate 139 H Respiratory Rate 16 Blood Pressure 187/129 H 175/118 H Pulse Oximetry 96 Oxygen Delivery Method 10/15/22 21:40 10/15/22 21:40 10/15/22 21:50 Pulse Rate 137 H 135 H Respiratory Rate 19 24 Blood Pressure 179/126 H Pulse Oximetry 96 96 Oxygen Delivery Method 10/15/22 21:50 10/15/22 22:00 10/15/22 22:00 Pulse Rate 129 H Respiratory Rate 26 H Blood Pressure 171/129 H 158/107 H Pulse Oximetry 98 Oxygen Delivery Method 10/15/22 22:10 10/15/22 22:10 10/15/22 22:15 Pulse Rate 104 H Respiratory Rate 24 Blood Pressure 104/75 106/76 Pulse Oximetry 95 Oxygen Delivery Method 10/15/22 22:15 10/15/22 22:20 10/15/22 22:20 Pulse Rate 98 H 97 H Respiratory Rate 26 H 25 H Blood Pressure 107/72 Pulse Oximetry 95 96 Oxygen Delivery Method 10/15/22 22:30 10/15/22 22:30 10/15/22 22:40 Pulse Rate 95 H 94 H Respiratory Rate 25 H 25 H Blood Pressure 105/73 Pulse Oximetry 98 99 Oxygen Delivery Method 10/15/22 22:40 10/15/22 22:51 10/15/22 22:51 Pulse Rate 115 H Respiratory Rate 22 Blood Pressure 106/73 77/50 L Pulse Oximetry 85 L Oxygen Delivery Method 10/15/22 22:52 10/15/22 22:52 10/15/22 22:59 Pulse Rate 105 H 96 H Respiratory Rate 52 H 39 H Blood Pressure 128/71 Pulse Oximetry 96 99 Oxygen Delivery Method 10/15/22 23:00 10/15/22 23:00 10/15/22 23:10 Pulse Rate 95 H Respiratory Rate 32 H Blood Pressure 96/61 96/64 Pulse Oximetry 99 Oxygen Delivery Method 10/15/22 23:10 10/15/22 23:20 10/15/22 23:20 Pulse Rate 94 H 94 H Respiratory Rate 42 H 42 H Blood Pressure 93/65 Pulse Oximetry 99 99 Oxygen Delivery Method 10/15/22 23:30 10/15/22 23:30 10/15/22 23:40 Pulse Rate 93 H 92 H Respiratory Rate 35 H 31 H Blood Pressure 91/63 Pulse Oximetry 99 99 Oxygen Delivery Method 10/15/22 23:40 10/15/22 23:48 10/15/22 23:48 Pulse Rate 91 H Respiratory Rate 38 H Blood Pressure 89/59 L 91/60 Pulse Oximetry 99 Oxygen Delivery Method 10/15/22 23:50 10/15/22 23:50 10/16/22 00:07 Pulse Rate 91 H 81 Respiratory Rate 33 H 25 H Blood Pressure 87/61 L 103/66 Pulse Oximetry 99 99 Oxygen Delivery Method Oxygen Delivery Method Room Air Narrative Exam Narrative: Intubated and sedated. On propofol 25 mcg, versed 6 mg/hr, fentanyl 100 mcg, and epinephrine 1 mcg. Objective Labs Result Diagrams: 10/15/22 22:56 10/15/22 22:56 Labs: Laboratory Results - last 24 hr 10/15/22 10/15/22 10/15/22 20:26 20:26 22:56 WBC 11.1 H RBC 3.93 L Hgb 12.3 Hct 37.3 MCV 94.9 MCH 31.3 MCHC 33.0 RDW 13.2 Plt Count 238 Neut % (Auto) 94.4 H Lymph % (Auto) 3.9 L [place] % (Auto) 1.1 L Eos % (Auto) 0.1 L Baso % (Auto) 0.5 Neut # (Auto) 50107 H Lymph # (Auto) 400 L [place] # (Auto) 100 Eos # (Auto) 0 Baso # (Auto) 100 Sodium Potassium Chloride Carbon Dioxide BUN Creatinine Estimated GFR BUN/Creatinine Ratio Glucose Calcium Total Bilirubin AST ALT Alkaline Phosphatase Total Protein Albumin Globulin Albumin/Globulin Ratio Urine Color Yellow Urine Appearance Clear Urine pH 7.0 Ur Specific [place] 1.010 Urine Protein 1+ H Urine Glucose (UA) 1+ H Urine Ketones Negative Urine Occult Blood Trace-lysed Urine Nitrate Negative Urine Bilirubin Negative Urine Urobilinogen 0.2 Ur Leukocyte Esterase Negative Urine RBC 0-1/hpf Urine WBC None seen Ur Squamous Epith Cells 0-1 /hpf Ur Transition Epith Cell 0-1/hpf Urine Bacteria None seen Ur Culture Indicated? Cult not indicated U Opiates 300ng/mL cut Negative Ur Oxycodone Screen Negative Urine Methadone Screen Negative Ur Barbiturates Screen Negative U Tricyclic Antidepress Negative Ur Phencyclidine Scrn Negative Ur Amphetamines Screen Negative U Methamphetamines Scrn Negative Ur MDMA Scrn (Ecstasy) Negative U Benzodiazepines Scrn Negative Urine Cocaine Screen Negative U Marijuana (THC) Screen Positive H Blood Type 10/15/22 10/15/22 22:56 22:56 WBC RBC Hgb Hct MCV MCH MCHC RDW Plt Count Neut % (Auto) Lymph % (Auto) [place] % (Auto) Eos % (Auto) Baso % (Auto) Neut # (Auto) Lymph # (Auto) [place] # (Auto) Eos # (Auto) Baso # (Auto) Sodium 143 Potassium 3.5 Chloride 106 Carbon Dioxide 24 BUN 7 Creatinine 0.72 Estimated GFR > 60 BUN/Creatinine Ratio 9.7 Glucose 296 H Calcium 8.0 L Total Bilirubin 0.5 AST 65 H ALT 32 Alkaline Phosphatase 78 Total Protein 7.7 Albumin 4.2 Globulin 3.5 Albumin/Globulin Ratio 1.2 Urine Color Urine Appearance Urine pH Ur Specific [place] Urine Protein Urine Glucose (UA) Urine Ketones Urine Occult Blood Urine Nitrate Urine Bilirubin Urine Urobilinogen Ur Leukocyte Esterase Urine RBC Urine WBC Ur Squamous Epith Cells Ur Transition Epith Cell Urine Bacteria Ur Culture Indicated? U Opiates 300ng/mL cut Ur Oxycodone Screen Urine Methadone Screen Ur Barbiturates Screen U Tricyclic Antidepress Ur Phencyclidine Scrn Ur Amphetamines Screen U Methamphetamines Scrn Ur MDMA Scrn (Ecstasy) U Benzodiazepines Scrn Urine Cocaine Screen U Marijuana (THC) Screen Blood Type O Positive Assessment & Plan Assessment & Plan narrative: NEURO: # Acute encephalopathy -- Sedated w/ propofol, versed, and fentanyl -- Titrate sedation to maintain RASS goal -1 to 0 -- Utox positive for THC -- DAily SAT -- Daily CAM ICU RESP: # Acute respiratory insufficiency -- Intubated for angioedema -- Sedation as above -- Daily cuff leak assessment -- HOB elevation -- Aspiration precaution # Angioedema -- Unclear etiology -- Per report C1 esterase level was normal -- Recommend decadron 4 mg IV q6hr, benadryl 25 mg TID, and pepcid -- Daily tongue assessment -- Daily cuff leak assessment CVS: # Shock -- Secondary to sedatives -- On epinephrine gtt -- MAP goal > 65 ENDO: # Hyperglycemia -- Check HbA1c -- Goal BS < 180 D/w Dr. Weiss and RN Time Spent With Patient Critical Care time: I spent a total of 43 minutes of critical care time on this patient's care today; this time is exclusive of procedural time.
--- NOTE | 2022-10-16 01:10 | TAR.TRANSNT ---
Blood product bar code, and expiration bar code (which was hand written on the product) would not scan. FFP double checked with Cary HORVATH. Time was not exceeded. Issue time was 0028 and FFP hung at 0048. Patient not able to sign blood consent form, phone call made to Narendra, which he okayed for transfusion over the phone. Patient tolerating transfusion well at this time.
[2022-10-16] MEDS: CHLORHEXIDINE GLUCONATE 15 ML CUP PO ×4 (01:36→19:25)
[2022-10-16] MEDS: diphenhydrAMINE 50 MG/ML VIAL IV ×4 (01:36→20:18)
[2022-10-16] MEDS: DEXAMETHASONE 4 MG/ML VIAL IV ×4 (01:36→19:25)
[2022-10-16 01:44] LABS: Adenovirus Detected (Not Detect); B. parapertussis Not Detected (Not Detecte); Bordetella pertussis Not Detected (Not Detecte); Chlamydophila pneumoniae Not Detected (Not Detect); Coronavirus 229E Not Detected (Not Detect); Coronavirus HKU1 Not Detected (Not Detect); Coronavirus NL 63 Not Detected (Not Detect); Coronavirus OC43 Not Detected (Not Detect); Human Metapneumovirus Not Detected (Not Detect); Human Rhinovirus/Enterovirus Not Detected (Not Detect); Influenza A Not Detected (Not Detect); Influenza B Not Detected (Not Detect); Mycoplasma pneumoniae Not Detected (Not Detect); Parainfluenza Virus 1 Not Detected (Not Detect); Parainfluenza Virus 2 Not Detected (Not Detect); Parainfluenza Virus 3 Not Detected (Not Detect); Parainfluenza Virus 4 Not Detected (Not Detect); Respiratory Syncytial Virus Not Detected (Not Detect); SARS- CoV-2 Not Detected (Not Detecte)
[2022-10-16 06:01] LABS: Add Manual Diff / Slide Review NO; Basophils Absolute Auto 0 /uL (0-100); Basophils Percent Auto 0.4 % (0-2); Eosinophils Absolute Auto 0 /uL (0-450); Hematocrit 35.1 % (36-46); Hemoglobin 11.7 g/dL (12.0-16.0); Lymphocytes Absolute Auto 400 /uL (1100-4500); Lymphocytes Percent Auto 7.5 % (25-40); Mean Corpuscular HGB Conc 33.3 % (30-36); Mean Corpuscular Hemoglobin 31.5 PG (26-34); Mean Corpuscular Volume 94.4 fL (80-100); Monocytes Absolute Auto 200 /uL (0-900); Monocytes Percent Auto 2.7 % (3-14); Neutrophils Absolute Auto 5300 /uL (1500-7000); Neutrophils Percent Auto 89.4 % (50-75); Platelet Count 227 X10^3/uL (150-400); Red Blood Cell Count 3.71 X10^6/uL (4.0-5.2); Red Cell Distribution Width 13.2 % (11.6-14.8); White Blood Cell Count 5.9 X10^3/uL (4.5-11.0)
[2022-10-16 06:05] LABS: Alanine Aminotransferase 35 IU/L (<35); Albumin 4.2 g/dL (3.5-5.0); Albumin Globulin Ratio 1.2 (1.0-2.8); Alkaline Phosphatase 74 U/L (38-126); Aspartate Aminotransferase 70 IU/L (14-36); BUN Creatinine Ratio 12.6 (6-22); Bilirubin Total 0.6 mg/dL (0.2-1.3); Blood Urea Nitrogen 11 mg/dL (7-17); Calcium 8.5 mg/dL (8.4-10.2); Carbon Dioxide 25 mmol/L (22-32); Chloride 104 mmol/L (98-107); Estimated Glomerular Filt Rate > 60 mL/min (>60); Globulin 3.5 g/dL (1.7-4.1); Glucose 194 mg/dL (70-100); HEMOLYSIS < 15 (0-50); Potassium 3.9 mmol/L (3.4-5.1); Sodium 142 mmol/L (137-145); Total Protein 7.7 g/dL (6.3-8.2)
[2022-10-16 06:58] LABS: Hemoglobin A1C% w Est Avg Glu 5.4 % (4.0-6.0)
[2022-10-16] MEDS: fentaNYL 1,000 MCG in DEXTROSE 5% IN WATER 230 ML 23.814 MCG IV (07:32)
[2022-10-16] MEDS: SODIUM CHLORIDE 0.9% 500 ML 1000 ML IV (07:33)
--- NOTE | 2022-10-16 07:47 | PC.NURSE ---
Admit/Finishing Supervisor Plastic Sheets Note-Patient brought to ICU room 227 at midnight. On ventilator FIO2 40%, TV 400, Peep 5, RR 16, SpO2 99%, lung sounds clear/coarse. Patient is sedated with propofol, Versed, and Fentanyl, see Emar for titration doses. Epinephrine infusing for angioedema and BP support to keep MAP > 65. FFP ordered and infused, IVP Decadron and Benadryl started as scheduled. Placed in Isolation for MRSA in nares and adenovirus. In am, UOP decreased to < 60ml over 2hrs, MD notified, 500ml NS bolus ordered.
[2022-10-16] MEDS: ENOXAPARIN 40 MG/0.4 ML SYRINGE SUBCUT (08:09)
[2022-10-16] MEDS: INSULIN LISPRO 100 UNIT/ML 3ML VIAL SUBCUT ×3 (08:22→16:50)
[2022-10-16] MEDS: LACTATED RINGERS 1,000 ML 1000 ML IV ×2 (10:19→13:41)
--- NOTE | 2022-10-16 10:32 | DI.ECHO.S_ITS ---
[facility] +---------+ [facility] +---------+ : : [address] [place] [address] : : : : [id number] : : : : Phone: [phone]+ Echocardiogram Report + + :Name: KOKI CARPIO Study Date: 10/16/2022 Height: 65 in : :[facility] ReadingLocation: Weight: 158 lb: : Gender: Female BSA: 1.8 m2 : :: 1975 Age: 46 yrs BP: 83/52 mmHg: :Reason For Study: Hypotension : :Ordering Physician: DAR, : :DAVID Performed By: Ranjith Cantu : :Referring: DAVID DODGE : + + Interpretation Summary Limited echo to evaluate wall motion and LV systolic function. Normal sinus rhythm. Normal LV size and wall thickness. There is apical akinesis which in the right clinical setting could be due to stress cardiomyopathy. Alternatively, this finding could be due to LAD disease. Ejection fraction is estimated at 30-35%. Compared to prior study obtained July 01, 2022, cardiomyopathy is newly described, apical wall motion abnormalities are newly described, Procedure: A two-dimensional transthoracic echocardiogram with color flow and Doppler was performed in limited views only. The study quality was technically adequate. Comparison is made with the echocardiogram of 07/01/2022. The patient was in normal sinus rhythm during the exam. Left Ventricle: The left ventricle is normal in size and wall thickness. The ejection fraction is estimated to be 30-35%. Left ventricular systolic function is moderately reduced. Right Ventricle: The right ventricle is normal in size and function. Pericardium/ Pleura There is no pericardial effusion. There is no pleural effusion. MMode/2D Measurements & Calculations LVIDd: 4.8 cm TAPSE: 2.5 cm LVIDs: 3.6 cm FS: 24.4 % IVSd: 1.0 cm LVPWd: 0.94 cm LV berkowitz. diameter/BSA (cm/m^2): 2.7 LV sys. diameter/BSA (cm/m^2): 2.0 Electronically signed by: Yessica Mohan M.D. on Reading Physician:10/16/2022 04:02 PM
--- NOTE | 2022-10-16 10:32 | P.TELICUPN_ITS ---
Subjective Subjective IF CAMERA ACTIVATED, patient seen via real-time interactive audiovisual communication: Camera activated Consent obtained for tele-tentering machine feeder care: Yes Patient Location: ICU Provider location (State): [place] Other participants/roles: n/a Interval history: n/a Current Medications Current Medications Medications: Home Medications bupropion HCl 100 mg tablet,12 hr sustained-release 100 mg PO DAILY #90 ea 07/25/22 [Rx] potassium chloride 20 mEq tablet,extended release 40 meq PO DAILY #90 tabs 07/25/22 [Rx] spironolactone 25 mg tablet 25 mg PO DAILY #90 tabs 07/25/22 [Rx] Visit Medications (administered) Generic Name Dose Route Start Last Admin Trade Name Freq PRN Reason Stop Dose Admin Chlorhexidine Gluconate 15 ml 10/16/22 08:00 10/16/22 07:49 Chlorhexidine Gluconate 15 Ml Cup PO 15 ml Q6H LINDA Administration Dexamethasone 4 mg 10/16/22 08:00 10/16/22 07:49 Dexamethasone 4 Mg/Ml Vial IV 4 mg Q6H LINDA Administration Diphenhydramine HCl 50 mg 10/16/22 08:00 10/16/22 07:49 Diphenhydramine 50 Mg/Ml Vial IV 50 mg Q6H LINDA Administration Enoxaparin Sodium 40 mg 10/16/22 09:00 10/16/22 08:09 Enoxaparin 40 Mg/0.4 Ml Syringe SUBCUT 40 mg DAILY LINDA Administration Propofol 1,000 mg in 100 mls @ 1.905 mls/hr 10/15/22 20:30 10/16/22 05:19 Propofol IV 0 mcg/kg/min TITRATE LINDA 0 mls/hr Titration Protocol 5 MCG/KG/MIN Epinephrine HCl 4 mg/ Dextrose 250 mls @ 3.75 mls/hr 10/15/22 21:00 10/16/22 06:41 IV 4 mcg/min TITRATE LINDA 15 mls/hr Titration Protocol 1 MCG/MIN Fentanyl 1,000 mcg/ Dextrose 250 mls @ 11.113 mls/hr 10/15/22 21:00 10/16/22 08:49 IV 2 mcg/kg/hr TITRATE LINDA 31.752 mls/hr Titration Protocol 0.7 MCG/KG/HR Midazolam HCl 50 mg/ Dextrose 250 mls @ 25 mls/hr 10/15/22 22:15 10/16/22 02:04 IV 2 mg/hr TITRATE LINDA 10 mls/hr Infusion Protocol 5 MG/HR Lactated Ringer's 1,000 mls @ 1,000 mls/hr 10/16/22 10:14 10/16/22 10:19 Lactated Ringers IV 10/16/22 11:13 1,000 mls/hr BOLUS ONE Administration Insulin Human Lispro 0 unit 10/16/22 07:45 10/16/22 08:22 Insulin Lispro 100 Unit/Ml 3ml Vial SUBCUT 1 unit ACHS LINDA Administration Protocol Propofol 80 mg 10/15/22 20:48 10/15/22 22:50 Propofol 200 Mg/20 Ml Vial IV 80 mg Q10MIN PRN Administration Sedation Objective Ventilator Parameters: Ventilator Settings FiO2 35 RT Vent Frequency 16 Ventilator Tidal Volume 400 Exhaled Vt/kg IBW 7 Positive End Expiratory 5 Pressure Inspiratory Phase Time 0.8 Patient Position HOB >= 30 degrees Labs Result Diagrams: 10/16/22 04:45 10/16/22 04:45 Labs: Laboratory Results - last 24 hr 10/15/22 10/15/22 10/15/22 20:26 20:26 20:44 WBC RBC Hgb Hct MCV MCH MCHC RDW Plt Count Neut % (Auto) Lymph % (Auto) [place] % (Auto) Eos % (Auto) Baso % (Auto) Neut # (Auto) Lymph # (Auto) [place] # (Auto) Eos # (Auto) Baso # (Auto) Sodium Potassium Chloride Carbon Dioxide BUN Creatinine Estimated GFR BUN/Creatinine Ratio Glucose Hemoglobin A1c Calcium Total Bilirubin AST ALT Alkaline Phosphatase Total Protein Albumin Globulin Albumin/Globulin Ratio Urine Color Yellow Urine Appearance Clear Urine pH 7.0 Ur Specific [place] 1.010 Urine Protein 1+ H Urine Glucose (UA) 1+ H Urine Ketones Negative Urine Occult Blood Trace-lysed Urine Nitrate Negative Urine Bilirubin Negative Urine Urobilinogen 0.2 Ur Leukocyte Esterase Negative Urine RBC 0-1/hpf Urine WBC None seen Ur Squamous Epith Cells 0-1 /hpf Ur Transition Epith Cell 0-1/hpf Urine Bacteria None seen Ur Culture Indicated? Cult not indicated Nasal Screen MRSA (PCR) U Opiates 300ng/mL cut Negative Ur Oxycodone Screen Negative Urine Methadone Screen Negative Ur Barbiturates Screen Negative U Tricyclic Antidepress Negative Ur Phencyclidine Scrn Negative Ur Amphetamines Screen Negative U Methamphetamines Scrn Negative Ur MDMA Scrn (Ecstasy) Negative U Benzodiazepines Scrn Negative Urine Cocaine Screen Negative U Marijuana (THC) Screen Positive H Chlamy pneumoniae PCR Not detected Adenovirus (PCR) Detected H B. pertussis DNA (PCR) Not detected B.parapertussis DNA PCR Not detected Coronavirus OC43 (PCR) Not detected Coronavirus HKU1 (PCR) Not detected Coronavirus 229E (PCR) Not detected SARS-CoV-2 (PCR) Not detected Coronavirus NL63 (PCR) Not detected Human Metapneumovir PCR Not detected Influenza Type A (PCR) Not detected Influenza Type B (PCR) Not detected M. pneumoniae (PCR) Not detected Parainfluenza 1 (PCR) Not detected Parainfluenza 2 (PCR) Not detected Parainfluenza 3 (PCR) Not detected Parainfluenza 4 (PCR) Not detected RSV (PCR) Not detected Entero/Rhino (PCR) Not detected Blood Type 10/15/22 10/15/22 10/15/22 22:56 22:56 22:56 WBC 11.1 H RBC 3.93 L Hgb 12.3 Hct 37.3 MCV 94.9 MCH 31.3 MCHC 33.0 RDW 13.2 Plt Count 238 Neut % (Auto) 94.4 H Lymph % (Auto) 3.9 L [place] % (Auto) 1.1 L Eos % (Auto) 0.1 L Baso % (Auto) 0.5 Neut # (Auto) 45042 H Lymph # (Auto) 400 L [place] # (Auto) 100 Eos # (Auto) 0 Baso # (Auto) 100 Sodium 143 Potassium 3.5 Chloride 106 Carbon Dioxide 24 BUN 7 Creatinine 0.72 Estimated GFR > 60 BUN/Creatinine Ratio 9.7 Glucose 296 H Hemoglobin A1c Calcium 8.0 L Total Bilirubin 0.5 AST 65 H ALT 32 Alkaline Phosphatase 78 Total Protein 7.7 Albumin 4.2 Globulin 3.5 Albumin/Globulin Ratio 1.2 Urine Color Urine Appearance Urine pH Ur Specific [place] Urine Protein Urine Glucose (UA) Urine Ketones Urine Occult Blood Urine Nitrate Urine Bilirubin Urine Urobilinogen Ur Leukocyte Esterase Urine RBC Urine WBC Ur Squamous Epith Cells Ur Transition Epith Cell Urine Bacteria Ur Culture Indicated? Nasal Screen MRSA (PCR) U Opiates 300ng/mL cut Ur Oxycodone Screen Urine Methadone Screen Ur Barbiturates Screen U Tricyclic Antidepress Ur Phencyclidine Scrn Ur Amphetamines Screen U Methamphetamines Scrn Ur MDMA Scrn (Ecstasy) U Benzodiazepines Scrn Urine Cocaine Screen U Marijuana (THC) Screen Chlamy pneumoniae PCR Adenovirus (PCR) B. pertussis DNA (PCR) B.parapertussis DNA PCR Coronavirus OC43 (PCR) Coronavirus HKU1 (PCR) Coronavirus 229E (PCR) SARS-CoV-2 (PCR) Coronavirus NL63 (PCR) Human Metapneumovir PCR Influenza Type A (PCR) Influenza Type B (PCR) M. pneumoniae (PCR) Parainfluenza 1 (PCR) Parainfluenza 2 (PCR) Parainfluenza 3 (PCR) Parainfluenza 4 (PCR) RSV (PCR) Entero/Rhino (PCR) Blood Type O Positive 10/15/22 10/16/22 10/16/22 22:56 00:57 04:45 WBC 5.9 RBC 3.71 L Hgb 11.7 L Hct 35.1 L MCV 94.4 MCH 31.5 MCHC 33.3 RDW 13.2 Plt Count 227 Neut % (Auto) 89.4 H Lymph % (Auto) 7.5 L [place] % (Auto) 2.7 L Eos % (Auto) 0.0 L Baso % (Auto) 0.4 Neut # (Auto) 5300 Lymph # (Auto) 400 L [place] # (Auto) 200 Eos # (Auto) 0 Baso # (Auto) 0 Sodium Potassium Chloride Carbon Dioxide BUN Creatinine Estimated GFR BUN/Creatinine Ratio Glucose Hemoglobin A1c 5.4 Calcium Total Bilirubin AST ALT Alkaline Phosphatase Total Protein Albumin Globulin Albumin/Globulin Ratio Urine Color Urine Appearance Urine pH Ur Specific [place] Urine Protein Urine Glucose (UA) Urine Ketones Urine Occult Blood Urine Nitrate Urine Bilirubin Urine Urobilinogen Ur Leukocyte Esterase Urine RBC Urine WBC Ur Squamous Epith Cells Ur Transition Epith Cell Urine Bacteria Ur Culture Indicated? Nasal Screen MRSA (PCR) Positive for mrsa H U Opiates 300ng/mL cut Ur Oxycodone Screen Urine Methadone Screen Ur Barbiturates Screen U Tricyclic Antidepress Ur Phencyclidine Scrn Ur Amphetamines Screen U Methamphetamines Scrn Ur MDMA Scrn (Ecstasy) U Benzodiazepines Scrn Urine Cocaine Screen U Marijuana (THC) Screen Chlamy pneumoniae PCR Adenovirus (PCR) B. pertussis DNA (PCR) B.parapertussis DNA PCR Coronavirus OC43 (PCR) Coronavirus HKU1 (PCR) Coronavirus 229E (PCR) SARS-CoV-2 (PCR) Coronavirus NL63 (PCR) Human Metapneumovir PCR Influenza Type A (PCR) Influenza Type B (PCR) M. pneumoniae (PCR) Parainfluenza 1 (PCR) Parainfluenza 2 (PCR) Parainfluenza 3 (PCR) Parainfluenza 4 (PCR) RSV (PCR) Entero/Rhino (PCR) Blood Type 10/16/22 04:45 WBC RBC Hgb Hct MCV MCH MCHC RDW Plt Count Neut % (Auto) Lymph % (Auto) [place] % (Auto) Eos % (Auto) Baso % (Auto) Neut # (Auto) Lymph # (Auto) [place] # (Auto) Eos # (Auto) Baso # (Auto) Sodium 142 Potassium 3.9 Chloride 104 Carbon Dioxide 25 BUN 11 Creatinine 0.87 Estimated GFR > 60 BUN/Creatinine Ratio 12.6 Glucose 194 H D Hemoglobin A1c Calcium 8.5 Total Bilirubin 0.6 AST 70 H ALT 35 H Alkaline Phosphatase 74 Total Protein 7.7 Albumin 4.2 Globulin 3.5 Albumin/Globulin Ratio 1.2 Urine Color Urine Appearance Urine pH Ur Specific [place] Urine Protein Urine Glucose (UA) Urine Ketones Urine Occult Blood Urine Nitrate Urine Bilirubin Urine Urobilinogen Ur Leukocyte Esterase Urine RBC Urine WBC Ur Squamous Epith Cells Ur Transition Epith Cell Urine Bacteria Ur Culture Indicated? Nasal Screen MRSA (PCR) U Opiates 300ng/mL cut Ur Oxycodone Screen Urine Methadone Screen Ur Barbiturates Screen U Tricyclic Antidepress Ur Phencyclidine Scrn Ur Amphetamines Screen U Methamphetamines Scrn Ur MDMA Scrn (Ecstasy) U Benzodiazepines Scrn Urine Cocaine Screen U Marijuana (THC) Screen Chlamy pneumoniae PCR Adenovirus (PCR) B. pertussis DNA (PCR) B.parapertussis DNA PCR Coronavirus OC43 (PCR) Coronavirus HKU1 (PCR) Coronavirus 229E (PCR) SARS-CoV-2 (PCR) Coronavirus NL63 (PCR) Human Metapneumovir PCR Influenza Type A (PCR) Influenza Type B (PCR) M. pneumoniae (PCR) Parainfluenza 1 (PCR) Parainfluenza 2 (PCR) Parainfluenza 3 (PCR) Parainfluenza 4 (PCR) RSV (PCR) Entero/Rhino (PCR) Blood Type Exam Vital Signs (past 8 hours): - 10/16/22 02:45 10/16/22 02:45 10/16/22 03:00 Temperature Pulse Rate 86 94 H Respiratory Rate 16 16 Blood Pressure 89/62 L Pulse Oximetry 100 100 Oxygen Delivery Method 10/16/22 03:01 10/16/22 03:01 10/16/22 03:23 Temperature 98.2 F Pulse Rate 91 H 87 Respiratory Rate 17 17 Blood Pressure 113/86 89/62 L Pulse Oximetry 100 Oxygen Delivery Method 10/16/22 03:15 10/16/22 03:15 10/16/22 03:30 Temperature Pulse Rate 87 Respiratory Rate 18 Blood Pressure 89/62 L 94/56 L Pulse Oximetry 100 Oxygen Delivery Method 10/16/22 03:30 10/16/22 03:45 10/16/22 03:45 Temperature 98.2 F Pulse Rate 86 85 Respiratory Rate 16 16 Blood Pressure 87/54 L Pulse Oximetry 100 100 Oxygen Delivery Method 10/16/22 04:00 10/16/22 04:00 10/16/22 04:15 Temperature Pulse Rate 85 Respiratory Rate 16 Blood Pressure 89/58 L 84/57 L Pulse Oximetry 99 Oxygen Delivery Method 10/16/22 04:15 10/16/22 04:30 10/16/22 04:30 Temperature Pulse Rate 84 84 Respiratory Rate 16 16 Blood Pressure 84/59 L Pulse Oximetry 99 99 Oxygen Delivery Method 10/16/22 04:45 10/16/22 04:45 10/16/22 05:00 Temperature Pulse Rate 84 Respiratory Rate 15 Blood Pressure 84/60 L 82/52 L Pulse Oximetry 100 Oxygen Delivery Method 10/16/22 05:00 10/16/22 05:00 10/16/22 05:15 Temperature Pulse Rate 84 Respiratory Rate 17 Blood Pressure 87/59 L Pulse Oximetry 99 Oxygen Delivery Method Mechanical Ventilation 10/16/22 05:15 10/16/22 05:30 10/16/22 05:30 Temperature Pulse Rate 85 83 Respiratory Rate 16 16 Blood Pressure 83/56 L Pulse Oximetry 100 100 Oxygen Delivery Method 10/16/22 05:45 10/16/22 05:45 10/16/22 06:00 Temperature Pulse Rate 83 Respiratory Rate 16 Blood Pressure 82/53 L 82/55 L Pulse Oximetry 99 Oxygen Delivery Method 10/16/22 06:00 10/16/22 06:15 10/16/22 06:15 Temperature Pulse Rate 83 83 Respiratory Rate 16 17 Blood Pressure 88/57 L Pulse Oximetry 99 100 Oxygen Delivery Method 10/16/22 06:30 10/16/22 06:30 10/16/22 06:45 Temperature Pulse Rate 83 83 Respiratory Rate 16 16 Blood Pressure 80/52 L Pulse Oximetry 99 100 Oxygen Delivery Method 10/16/22 06:45 10/16/22 07:00 10/16/22 07:00 Temperature Pulse Rate 84 Respiratory Rate 16 Blood Pressure 81/54 L 81/54 L Pulse Oximetry 100 Oxygen Delivery Method 10/16/22 07:15 10/16/22 07:15 10/16/22 07:50 Temperature 98.3 F Pulse Rate 83 Respiratory Rate 19 Blood Pressure 88/54 L Pulse Oximetry 99 Oxygen Delivery Method 10/16/22 07:30 10/16/22 07:30 10/16/22 07:45 Temperature Pulse Rate 83 Respiratory Rate 16 Blood Pressure 83/50 L 98/79 Pulse Oximetry 99 Oxygen Delivery Method 10/16/22 07:45 10/16/22 08:00 10/16/22 08:00 Temperature Pulse Rate 84 85 Respiratory Rate 17 19 Blood Pressure 93/68 Pulse Oximetry 100 100 Oxygen Delivery Method 10/16/22 08:15 10/16/22 08:15 10/16/22 08:30 Temperature Pulse Rate 83 Respiratory Rate 15 Blood Pressure 90/59 L 108/73 Pulse Oximetry 100 Oxygen Delivery Method 10/16/22 08:30 10/16/22 08:47 10/16/22 08:47 Temperature Pulse Rate 81 108 H Respiratory Rate 16 46 H Blood Pressure 137/102 H Pulse Oximetry 100 100 Oxygen Delivery Method 10/16/22 08:50 10/16/22 08:50 10/16/22 09:00 Temperature Pulse Rate 91 H Respiratory Rate 21 Blood Pressure 116/82 99/69 Pulse Oximetry 100 Oxygen Delivery Method 10/16/22 09:00 10/16/22 09:15 10/16/22 09:15 Temperature Pulse Rate 91 H 92 H Respiratory Rate 14 19 Blood Pressure 96/64 Pulse Oximetry 99 98 Oxygen Delivery Method 10/16/22 09:00 Temperature Pulse Rate Respiratory Rate Blood Pressure Pulse Oximetry Oxygen Delivery Method Mechanical Ventilation Oxygen Delivery Method Mechanical Ventilation Quality TeleICU VTE Deep Vein Thrombosis/Pulmonary Embolism Present on Admission: No Assessment & Plan Assessment & Plan narrative: patient seen with bedside nurse chart/labs/imaging reviewed 46 year old female with acute resp failure angioedema shock, likely multifactorial currently afebrile, hypotension on epi plan -neurochecks/seizure precautions -sedation prn goal maldonado -1 -daily sah/sbt. would keep intubated today -continue steroids -continue benadryl -add pepcid -vent support keep sat above 92% -+cuff leak noted -ent eval if available -if [id number] is normal, no need for more FFP, pt recieved 1 unit already, can give second if familial angioedema is suspected -check cxr/abg adjust as needed -check serial ekg/trop -check echo -parsons cxs, does not appear toxic/infections can hold abx for now -bolus 1L of ivf and reassess -monitor ins/outs -replace lytes prn -keep glucose 140-180s -feeds as tolerated -gi/dvt ppx -please call eICU if condition changes total [facility] time 55 mins Time Spent With Patient Critical Care time: I spent a total of [] minutes of critical care time on this patient's care today; this time is exclusive of procedural time.
[2022-10-16] MEDS: FAMOTIDINE 20 MG/2 ML VIAL IV ×2 (10:55→20:18)
[2022-10-16] MEDS: LACTATED RINGERS 1,000 ML 75 ML IV ×2 (11:05→23:42)
--- NOTE | 2022-10-16 13:35 | DIET.CONS ---
Dietary Consultation Note Admission Date: 10/15/2022 22:58 Assessment: 46 y/o F admitted with sudden onset of tongue swelling and PMH of angioedema, marijuana and cocaine use. Has been intubated. RD consulted for TF. Pharmacy confirmed no current propofol. RN confirmed current MAP of 70. With MAP <65 may not tolerate TF well. k 3.9, glucose 198 up from 178, hgA1c 5.4%, mg 2.0, no phos. No recent h/o weight loss. No MNA available for review. Ht: 165.1 cm Wt: 72 kg BMI: 26.4 Last BM: () MNA: Erik Score: 17 Labs: RBC 3.71 X10^6/uL (4.0-5.2) L 10/16/22 04:45 Hgb 11.7 g/dL (12.0-16.0) L 10/16/22 04:45 Hct 35.1 % (36-46) L 10/16/22 04:45 Creatinine 0.87 mg/dL (0.52-1.04) 10/16/22 04:45 Hemoglobin A1c 5.4 % (4.0-6.0) 10/15/22 22:56 Nutrition Diagnosis: Inadequate oral intake r/t intubation aeb insufficient energy intake compared to estimated energy expenditure Interventions: 1. Recc feeding continuous Glucerna 1.2 starting at 10mL/h titrating up by 10-15mL q 4-6h as tolerated until reaching goal rate of 50mL/h. Also recc 3 additional protein packets per day to help meet protein needs. Please flush 1-2 packets at one time. Recc 250mL free water flushes q 4h. This provides 100% kcals, 100% PRO, and 98% fluids 2. HOB elevated at least 30 degrees at all time to reduce risk of aspiration. 3. Daily weights 4. Pt at risk for refeeding, check refeeding labs BID 5. Recc keeping glucose 140-180mg/dL EER: 8450-4284 kcals (20-22kcal/kg), 86-105g protein (1.2-1.5g/kg), 2520 mL fluids (per 35ml/kg) Monitoring/Evaluations: RD follow-up in 3 days. Monitoring TF tolerance, weights, and refeeding labs. Electronically Signed by: Christina Klein 10/16/22 13:35 Clinical Dietitian [address] [address]
[2022-10-16] MEDS: dexmedeTOMIDine in 0.9 % NaCL 400 MCG/100 ML PLAST..BAG IV (13:42)
--- NOTE | 2022-10-16 14:14 | DI.RAD.S_ITS ---
PROCEDURE: XR CHEST 1V INDICATIONS: ett TECHNIQUE: One view of the chest was acquired. COMPARISON: [facility], CR, XR CHEST 1V, 10/15/2022, 20:32. [facility], CR, XR CHEST 1V, 06/30/2022, 9:02. FINDINGS: Surgical changes and devices: Right central line terminates in the SVC. ET tube terminates in appropriate position. Enteric tube terminates beyond the field of view. Lungs and pleura: Decreased lung disease compared yesterday's radiograph. No pleural effusions. Mediastinum: Mediastinal contours appear normal. Heart size is normal. Bones and chest wall: No suspicious bony lesions. Overlying soft tissues appear unremarkable. IMPRESSION: Appropriate positioning of life support lines. Compared to yesterday's radiograph, lung disease is decreased. Dictated by: Tyree Rodas M.D. on 10/16/2022 at 14:47 Approved by: Tyree Rodas M.D. on 10/16/2022 at 14:48
[2022-10-16 15:37] LABS: Fractionated Inspired Oxygen 30; HCO3 ABG 23 mmol/L (22-26); Oxygen Saturation ABG 98 % (95-100); PCO2 ABG 40.7 mmHg (35-45); PO2 ABG 105 mmHg (80-100); TCO2 ABG 24 mmol/L (21-31); pH ABG 7.36 (7.35-7.45)
[2022-10-16] MEDS: fentaNYL 1,000 MCG in DEXTROSE 5% IN WATER 230 ML 31.752 MCG IV ×2 (15:49→23:29)
[2022-10-16] MEDS: EPINEPHrine 4 MG in DEXTROSE 5% IN WATER 246 ML 15 MG IV (18:47)
--- NOTE | 2022-10-16 19:04 | P.PN_ITS ---
Subjective Subjective Date Patient Seen: 10/16/22 Interval history: 46-year-old female with polysubstance dependence specifically cocaine and marijuana who was admitted last evening with recurrent angioedema requiring intubation/mechanical ventilation for airway protection. Patient remained sedated, but awake. She does not respond to questions at this time. RN reports no new changes overnight. 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 Exam Vital Signs (past 8 hours): - 10/16/22 11:15 10/16/22 13:45 10/16/22 13:00 Temperature 98.7 F Pulse Rate 80 Respiratory Rate 16 Blood Pressure 80/52 L Pulse Oximetry 99 Oxygen Delivery Method Mechanical Ventilation 10/16/22 11:15 10/16/22 11:15 10/16/22 11:30 Temperature Pulse Rate 84 Respiratory Rate 27 H Blood Pressure 91/61 87/56 L Pulse Oximetry 100 Oxygen Delivery Method 10/16/22 11:30 10/16/22 11:45 10/16/22 11:45 Temperature Pulse Rate 84 84 Respiratory Rate 24 14 Blood Pressure 91/58 L Pulse Oximetry 99 100 Oxygen Delivery Method 10/16/22 12:00 10/16/22 12:00 10/16/22 12:15 Temperature Pulse Rate 81 Respiratory Rate 16 Blood Pressure 93/62 89/60 L Pulse Oximetry 100 Oxygen Delivery Method 10/16/22 12:15 10/16/22 12:30 10/16/22 12:30 Temperature Pulse Rate 83 83 Respiratory Rate 21 16 Blood Pressure 82/51 L Pulse Oximetry 99 98 Oxygen Delivery Method 10/16/22 12:45 10/16/22 12:45 10/16/22 12:50 Temperature Pulse Rate 84 Respiratory Rate 17 Blood Pressure 79/50 L 90/55 L Pulse Oximetry 99 Oxygen Delivery Method 10/16/22 12:50 10/16/22 13:00 10/16/22 13:00 Temperature Pulse Rate 82 80 Respiratory Rate 17 16 Blood Pressure 77/51 L Pulse Oximetry 99 99 Oxygen Delivery Method 10/16/22 13:03 10/16/22 13:03 10/16/22 13:06 Temperature Pulse Rate 84 Respiratory Rate 18 Blood Pressure 80/50 L 84/52 L Pulse Oximetry 99 Oxygen Delivery Method 10/16/22 13:06 10/16/22 13:15 10/16/22 13:15 Temperature Pulse Rate 81 82 Respiratory Rate 16 18 Blood Pressure 83/52 L Pulse Oximetry 99 99 Oxygen Delivery Method 10/16/22 13:30 10/16/22 13:30 10/16/22 13:45 Temperature Pulse Rate 80 Respiratory Rate 16 Blood Pressure 83/51 L 80/52 L Pulse Oximetry 99 Oxygen Delivery Method 10/16/22 13:45 10/16/22 14:00 10/16/22 14:00 Temperature Pulse Rate 81 80 Respiratory Rate 16 16 Blood Pressure 77/51 L Pulse Oximetry 99 99 Oxygen Delivery Method 10/16/22 14:03 10/16/22 14:03 10/16/22 14:05 Temperature Pulse Rate 79 Respiratory Rate 16 Blood Pressure 77/50 L 79/52 L Pulse Oximetry 99 Oxygen Delivery Method 10/16/22 14:05 10/16/22 14:15 10/16/22 14:15 Temperature Pulse Rate 79 78 Respiratory Rate 16 16 Blood Pressure 78/51 L Pulse Oximetry 99 99 Oxygen Delivery Method 10/16/22 14:30 10/16/22 14:30 10/16/22 14:45 Temperature Pulse Rate 76 Respiratory Rate 16 Blood Pressure 79/51 L 117/86 Pulse Oximetry 99 Oxygen Delivery Method 10/16/22 14:45 10/16/22 15:00 10/16/22 15:00 Temperature Pulse Rate 79 85 Respiratory Rate 27 H 17 Blood Pressure 111/78 Pulse Oximetry 100 100 Oxygen Delivery Method 10/16/22 15:15 10/16/22 15:15 10/16/22 15:30 Temperature Pulse Rate 74 Respiratory Rate 16 Blood Pressure 86/58 L 86/58 L Pulse Oximetry 99 Oxygen Delivery Method 10/16/22 15:30 10/16/22 16:09 10/16/22 15:45 Temperature 96.4 F L Pulse Rate 73 74 Respiratory Rate 16 16 Blood Pressure Pulse Oximetry 100 100 Oxygen Delivery Method 10/16/22 15:45 10/16/22 16:00 10/16/22 16:00 Temperature Pulse Rate 72 Respiratory Rate 16 Blood Pressure 89/56 L 89/58 L Pulse Oximetry 100 Oxygen Delivery Method 10/16/22 16:15 10/16/22 16:15 10/16/22 16:30 Temperature Pulse Rate 73 Respiratory Rate 16 Blood Pressure 92/62 94/62 Pulse Oximetry 100 Oxygen Delivery Method 10/16/22 16:30 10/16/22 16:45 10/16/22 16:45 Temperature Pulse Rate 71 70 Respiratory Rate 16 16 Blood Pressure 96/61 Pulse Oximetry 100 100 Oxygen Delivery Method 10/16/22 17:00 10/16/22 17:00 10/16/22 17:15 Temperature Pulse Rate 68 Respiratory Rate 16 Blood Pressure 97/62 99/67 Pulse Oximetry 100 Oxygen Delivery Method 10/16/22 17:15 10/16/22 17:30 10/16/22 17:30 Temperature Pulse Rate 68 68 Respiratory Rate 16 16 Blood Pressure 102/68 Pulse Oximetry 100 100 Oxygen Delivery Method 10/16/22 17:45 10/16/22 17:45 10/16/22 17:00 Temperature Pulse Rate 69 Respiratory Rate 16 Blood Pressure 104/70 Pulse Oximetry 100 Oxygen Delivery Method Mechanical Ventilation 10/16/22 18:00 10/16/22 18:00 10/16/22 18:15 Temperature Pulse Rate 68 Respiratory Rate 16 Blood Pressure 103/71 125/78 Pulse Oximetry 100 Oxygen Delivery Method 10/16/22 18:15 10/16/22 18:30 10/16/22 18:30 Temperature Pulse Rate 73 68 Respiratory Rate 23 16 Blood Pressure 110/74 Pulse Oximetry 100 100 Oxygen Delivery Method 10/16/22 18:45 10/16/22 18:45 Temperature Pulse Rate 68 Respiratory Rate 16 Blood Pressure 111/74 Pulse Oximetry 100 Oxygen Delivery Method Oxygen Delivery Method Mechanical Ventilation Narrative Exam Narrative: GEN: Sedated but does open her eyes, no acute distress HEENT:NC, left cheek and face reveal moderate swelling, tongue is protruding and also significantly swollen there is an abrasion noted to the tip of the tongue CHEST: Respiratory excursions symmetric, CTAB CV: RRR, no M/R/G ABD: Soft, NT/ND, BT present in all 4 quadrants, no organomegaly or masses EXTR: warm, well perfused, no C/C/E SKIN: warm and dry, no rash NEURO: Intubated, sedated Objective Labs Result Diagrams: 10/16/22 04:45 10/16/22 04:45 Labs: Laboratory Results - last 24 hr 10/15/22 10/15/22 10/15/22 20:26 20:26 20:44 WBC RBC Hgb Hct MCV MCH MCHC RDW Plt Count Neut % (Auto) Lymph % (Auto) [place] % (Auto) Eos % (Auto) Baso % (Auto) Neut # (Auto) Lymph # (Auto) [place] # (Auto) Eos # (Auto) Baso # (Auto) ABG pH ABG pCO2 ABG pO2 ABG HCO3 ABG Total CO2 ABG O2 Saturation ABG Base Excess FiO2 Sodium Potassium Chloride Carbon Dioxide BUN Creatinine Estimated GFR BUN/Creatinine Ratio Glucose Hemoglobin A1c Calcium Total Bilirubin AST ALT Alkaline Phosphatase Total Protein Albumin Globulin Albumin/Globulin Ratio Urine Color Yellow Urine Appearance Clear Urine pH 7.0 Ur Specific [place] 1.010 Urine Protein 1+ H Urine Glucose (UA) 1+ H Urine Ketones Negative Urine Occult Blood Trace-lysed Urine Nitrate Negative Urine Bilirubin Negative Urine Urobilinogen 0.2 Ur Leukocyte Esterase Negative Urine RBC 0-1/hpf Urine WBC None seen Ur Squamous Epith Cells 0-1 /hpf Ur Transition Epith Cell 0-1/hpf Urine Bacteria None seen Ur Culture Indicated? Cult not indicated Nasal Screen MRSA (PCR) U Opiates 300ng/mL cut Negative Ur Oxycodone Screen Negative Urine Methadone Screen Negative Ur Barbiturates Screen Negative U Tricyclic Antidepress Negative Ur Phencyclidine Scrn Negative Ur Amphetamines Screen Negative U Methamphetamines Scrn Negative Ur MDMA Scrn (Ecstasy) Negative U Benzodiazepines Scrn Negative Urine Cocaine Screen Negative U Marijuana (THC) Screen Positive H Chlamy pneumoniae PCR Not detected Adenovirus (PCR) Detected H B. pertussis DNA (PCR) Not detected B.parapertussis DNA PCR Not detected Coronavirus OC43 (PCR) Not detected Coronavirus HKU1 (PCR) Not detected Coronavirus 229E (PCR) Not detected SARS-CoV-2 (PCR) Not detected Coronavirus NL63 (PCR) Not detected Human Metapneumovir PCR Not detected Influenza Type A (PCR) Not detected Influenza Type B (PCR) Not detected M. pneumoniae (PCR) Not detected Parainfluenza 1 (PCR) Not detected Parainfluenza 2 (PCR) Not detected Parainfluenza 3 (PCR) Not detected Parainfluenza 4 (PCR) Not detected RSV (PCR) Not detected Entero/Rhino (PCR) Not detected Blood Type 10/15/22 10/15/22 10/15/22 22:56 22:56 22:56 WBC 11.1 H RBC 3.93 L Hgb 12.3 Hct 37.3 MCV 94.9 MCH 31.3 MCHC 33.0 RDW 13.2 Plt Count 238 Neut % (Auto) 94.4 H Lymph % (Auto) 3.9 L [place] % (Auto) 1.1 L Eos % (Auto) 0.1 L Baso % (Auto) 0.5 Neut # (Auto) 67640 H Lymph # (Auto) 400 L [place] # (Auto) 100 Eos # (Auto) 0 Baso # (Auto) 100 ABG pH ABG pCO2 ABG pO2 ABG HCO3 ABG Total CO2 ABG O2 Saturation ABG Base Excess FiO2 Sodium 143 Potassium 3.5 Chloride 106 Carbon Dioxide 24 BUN 7 Creatinine 0.72 Estimated GFR > 60 BUN/Creatinine Ratio 9.7 Glucose 296 H Hemoglobin A1c Calcium 8.0 L Total Bilirubin 0.5 AST 65 H ALT 32 Alkaline Phosphatase 78 Total Protein 7.7 Albumin 4.2 Globulin 3.5 Albumin/Globulin Ratio 1.2 Urine Color Urine Appearance Urine pH Ur Specific [place] Urine Protein Urine Glucose (UA) Urine Ketones Urine Occult Blood Urine Nitrate Urine Bilirubin Urine Urobilinogen Ur Leukocyte Esterase Urine RBC Urine WBC Ur Squamous Epith Cells Ur Transition Epith Cell Urine Bacteria Ur Culture Indicated? Nasal Screen MRSA (PCR) U Opiates 300ng/mL cut Ur Oxycodone Screen Urine Methadone Screen Ur Barbiturates Screen U Tricyclic Antidepress Ur Phencyclidine Scrn Ur Amphetamines Screen U Methamphetamines Scrn Ur MDMA Scrn (Ecstasy) U Benzodiazepines Scrn Urine Cocaine Screen U Marijuana (THC) Screen Chlamy pneumoniae PCR Adenovirus (PCR) B. pertussis DNA (PCR) B.parapertussis DNA PCR Coronavirus OC43 (PCR) Coronavirus HKU1 (PCR) Coronavirus 229E (PCR) SARS-CoV-2 (PCR) Coronavirus NL63 (PCR) Human Metapneumovir PCR Influenza Type A (PCR) Influenza Type B (PCR) M. pneumoniae (PCR) Parainfluenza 1 (PCR) Parainfluenza 2 (PCR) Parainfluenza 3 (PCR) Parainfluenza 4 (PCR) RSV (PCR) Entero/Rhino (PCR) Blood Type O Positive 10/15/22 10/16/22 10/16/22 22:56 00:57 04:45 WBC 5.9 RBC 3.71 L Hgb 11.7 L Hct 35.1 L MCV 94.4 MCH 31.5 MCHC 33.3 RDW 13.2 Plt Count 227 Neut % (Auto) 89.4 H Lymph % (Auto) 7.5 L [place] % (Auto) 2.7 L Eos % (Auto) 0.0 L Baso % (Auto) 0.4 Neut # (Auto) 5300 Lymph # (Auto) 400 L [place] # (Auto) 200 Eos # (Auto) 0 Baso # (Auto) 0 ABG pH ABG pCO2 ABG pO2 ABG HCO3 ABG Total CO2 ABG O2 Saturation ABG Base Excess FiO2 Sodium Potassium Chloride Carbon Dioxide BUN Creatinine Estimated GFR BUN/Creatinine Ratio Glucose Hemoglobin A1c 5.4 Calcium Total Bilirubin AST ALT Alkaline Phosphatase Total Protein Albumin Globulin Albumin/Globulin Ratio Urine Color Urine Appearance Urine pH Ur Specific [place] Urine Protein Urine Glucose (UA) Urine Ketones Urine Occult Blood Urine Nitrate Urine Bilirubin Urine Urobilinogen Ur Leukocyte Esterase Urine RBC Urine WBC Ur Squamous Epith Cells Ur Transition Epith Cell Urine Bacteria Ur Culture Indicated? Nasal Screen MRSA (PCR) Positive for mrsa H U Opiates 300ng/mL cut Ur Oxycodone Screen Urine Methadone Screen Ur Barbiturates Screen U Tricyclic Antidepress Ur Phencyclidine Scrn Ur Amphetamines Screen U Methamphetamines Scrn Ur MDMA Scrn (Ecstasy) U Benzodiazepines Scrn Urine Cocaine Screen U Marijuana (THC) Screen Chlamy pneumoniae PCR Adenovirus (PCR) B. pertussis DNA (PCR) B.parapertussis DNA PCR Coronavirus OC43 (PCR) Coronavirus HKU1 (PCR) Coronavirus 229E (PCR) SARS-CoV-2 (PCR) Coronavirus NL63 (PCR) Human Metapneumovir PCR Influenza Type A (PCR) Influenza Type B (PCR) M. pneumoniae (PCR) Parainfluenza 1 (PCR) Parainfluenza 2 (PCR) Parainfluenza 3 (PCR) Parainfluenza 4 (PCR) RSV (PCR) Entero/Rhino (PCR) Blood Type 10/16/22 10/16/22 04:45 15:19 WBC RBC Hgb Hct MCV MCH MCHC RDW Plt Count Neut % (Auto) Lymph % (Auto) [place] % (Auto) Eos % (Auto) Baso % (Auto) Neut # (Auto) Lymph # (Auto) [place] # (Auto) Eos # (Auto) Baso # (Auto) ABG pH 7.36 ABG pCO2 40.7 ABG pO2 105 H ABG HCO3 23 ABG Total CO2 24 ABG O2 Saturation 98 ABG Base Excess -3.0 L FiO2 30 Sodium 142 Potassium 3.9 Chloride 104 Carbon Dioxide 25 BUN 11 Creatinine 0.87 Estimated GFR > 60 BUN/Creatinine Ratio 12.6 Glucose 194 H D Hemoglobin A1c Calcium 8.5 Total Bilirubin 0.6 AST 70 H ALT 35 H Alkaline Phosphatase 74 Total Protein 7.7 Albumin 4.2 Globulin 3.5 Albumin/Globulin Ratio 1.2 Urine Color Urine Appearance Urine pH Ur Specific [place] Urine Protein Urine Glucose (UA) Urine Ketones Urine Occult Blood Urine Nitrate Urine Bilirubin Urine Urobilinogen Ur Leukocyte Esterase Urine RBC Urine WBC Ur Squamous Epith Cells Ur Transition Epith Cell Urine Bacteria Ur Culture Indicated? Nasal Screen MRSA (PCR) U Opiates 300ng/mL cut Ur Oxycodone Screen Urine Methadone Screen Ur Barbiturates Screen U Tricyclic Antidepress Ur Phencyclidine Scrn Ur Amphetamines Screen U Methamphetamines Scrn Ur MDMA Scrn (Ecstasy) U Benzodiazepines Scrn Urine Cocaine Screen U Marijuana (THC) Screen Chlamy pneumoniae PCR Adenovirus (PCR) B. pertussis DNA (PCR) B.parapertussis DNA PCR Coronavirus OC43 (PCR) Coronavirus HKU1 (PCR) Coronavirus 229E (PCR) SARS-CoV-2 (PCR) Coronavirus NL63 (PCR) Human Metapneumovir PCR Influenza Type A (PCR) Influenza Type B (PCR) M. pneumoniae (PCR) Parainfluenza 1 (PCR) Parainfluenza 2 (PCR) Parainfluenza 3 (PCR) Parainfluenza 4 (PCR) RSV (PCR) Entero/Rhino (PCR) Blood Type PFSH Medical History Abscess Chronic abdominal pain Cyclic vomiting syndrome Family history of angioedema Marijuana use, continuous MRSA (methicillin resistant staph aureus) culture positive Pancreatitis Surgical History Hx of appendectomy Hx of cholecystectomy Family History Father Hypertension Mother Diabetes mellitus Daughter Angio-edema Other Colon cancer Social History household members: spouse Smoking Status: Current every day smoker alcohol intake: current Assessment & Plan Assessment & Plan narrative: Angioedema with acute hypoxic respiratory failure Patient evidently has had previous presentations. 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 She remains intubated and sedated. She continues to have very significant lip tongue and cheek swelling. Continues diphenhydramine, dexamethasone, famotidine. Anxiety On Wellbutrin on an outpatient basis. This has been held Hypertension Holding her outpatient antihypertensive therapy. Blood pressure is normotensive Hyperglycemia Still A1c is 5.4%, hyperglycemia is likely stress induced. Hypotension Resolved Code status Full Prophylaxis On Lovenox Disposition Intensive care unit Time Spent With Patient Critical Care time: I spent a total of [] minutes of critical care time on this patient's care today; this time is exclusive of procedural time. Quality VTE Deep Vein Thrombosis/Pulmonary Embolism Present on Admission: No
[2022-10-16] MEDS: dexmedeTOMIDine in 0.9 % NaCL 400 MCG/100 ML PLAST..BAG 18 MCG IV (19:25)
--- NOTE | 2022-10-16 20:40 | PM.ICURNDS ---
- Date Patient Seen: 10/16/22 Time Patient Seen: 20:40 :: This patient was seen via real time interactive two-way audiovisual telecommunication. Note: remains vented and on pressors BP improved, adequate urine output continue gentle hydration, monitor for overload echo ef 35%, new ekg with non specific changes check cadiac markers consider cardio eval
[2022-10-16 21:44] LABS: Creatine Kinase 258 U/L (30-135)
[2022-10-16 21:59] LABS: CKMB % Relative Index 5.7 % (1.5-5.0)
--- NOTE | 2022-10-16 22:53 | PM.EVENT ---
Event Note Event Note (Rapid Response, Code, or fall): Notified by RN and Dr. Weiss about troponin 6.8. Recommend stopping epinephrine gtt and start heparin gtt per [facility] protocol. Start ASA and lipitor. Continue trending troponin X 3 and recommend transfer to tertiary care for LHC. D/w Dr. Fortune.
[2022-10-16 23:26] LABS: PTT Partial Thromboplastin Tim 26 SECONDS (26-36)
[2022-10-16] MEDS: ASPIRIN 325 MG TABLET PO (23:28)
[2022-10-16] MEDS: HEPARIN DRIP 25,000 UNIT/500 ML IV.SOLN 17.28 UNIT IV (23:47)
[2022-10-17] VITALS (44 sets, daily range): BP systolic 97–178; BP diastolic 59–120; PULSE 49–128; RESP 16–42; TEMP 36.2–38; O2SAT 95–100
[2022-10-17] MEDS: dexmedeTOMIDine in 0.9 % NaCL 400 MCG/100 ML PLAST..BAG 18 MCG IV (00:46)
[2022-10-17 01:33] LABS: Add Manual Diff / Slide Review NO; Basophils Absolute Auto 0 /uL (0-100); Basophils Percent Auto 0.3 % (0-2); Eosinophils Absolute Auto 0 /uL (0-450); Eosinophils Percent Auto 0.3 % (2-4); Hematocrit 37.7 % (36-46); Hemoglobin 12.5 g/dL (12.0-16.0); Lymphocytes Absolute Auto 1100 /uL (1100-4500); Mean Corpuscular HGB Conc 33.1 % (30-36); Mean Corpuscular Hemoglobin 31.2 PG (26-34); Mean Corpuscular Volume 94.4 fL (80-100); Monocytes Absolute Auto 700 /uL (0-900); Monocytes Percent Auto 6.5 % (3-14); Neutrophils Absolute Auto 8500 /uL (1500-7000); Neutrophils Percent Auto 81.9 % (50-75); Platelet Count 229 X10^3/uL (150-400); Red Cell Distribution Width 13.2 % (11.6-14.8); White Blood Cell Count 10.3 X10^3/uL (4.5-11.0)
[2022-10-17 01:44] LABS: Alanine Aminotransferase 32 IU/L (<35); Albumin 3.5 g/dL (3.5-5.0); Albumin Globulin Ratio 1.1 (1.0-2.8); Alkaline Phosphatase 47 U/L (38-126); BUN Creatinine Ratio 20.3 (6-22); Bilirubin Total 0.5 mg/dL (0.2-1.3); Blood Urea Nitrogen 16 mg/dL (7-17); Calcium 8.5 mg/dL (8.4-10.2); Carbon Dioxide 27 mmol/L (22-32); Chloride 103 mmol/L (98-107); Creatine Kinase 244 U/L (30-135); Estimated Glomerular Filt Rate > 60 mL/min (>60); Globulin 3.1 g/dL (1.7-4.1); Glucose 155 mg/dL (70-100); Sodium 137 mmol/L (137-145); Total Protein 6.6 g/dL (6.3-8.2)
[2022-10-17 01:50] LABS: HEMOLYSIS 60 (0-50)
[2022-10-17 01:51] LABS: Potassium 4.8 mmol/L (3.4-5.1)
[2022-10-17 01:52] LABS: Aspartate Aminotransferase 62 IU/L (14-36)
[2022-10-17 02:03] LABS: CKMB % Relative Index 4.6 % (1.5-5.0)
[2022-10-17] MEDS: DEXAMETHASONE 4 MG/ML VIAL IV (03:01)
[2022-10-17] MEDS: diphenhydrAMINE 50 MG/ML VIAL IV ×3 (03:01→17:22)
--- NOTE | 2022-10-17 04:49 | PC.NURSE ---
Addendum entered by Cary Martinez R.N. 10/17/22 06:34: After extubation, patient was assisted with bed bath with, brush teeth, stand at side of bed with SBA, tolerating clear liquids. Moods are very labile. Within minutes, patient will be joking and laughing, then start getting very angry and cursing at staff, then start crying and thanking staff. She was scratching legs d/t itching' to the point of causing dark lines on skin, no breakage, lotion given. Original Note: Architectural Intern Note-At beginning of shift patient was on ventilator FIO2 30%, TV 460, Peep 5, RR 16 and sedated RASS -3 with Precedex and Fentanyl. Epinephrine gtt at 4mcg/min. Troponin drawn Wastewater Superintendent order during ICU rounds, came back 6.81, reported to Hospitalist and Wastewater Superintendent, orders received for EKG, started Acute Coronary Heparin gtt, and trend Troponins. Epinephrine titrated off by 0100. At 0200, Patient woke up, A/Ox3, following commands, and very angry, staff attempts to deescalate, Precedex increased briefly. Dr Fortune in room and Dr Hassan on monitor. Decision was made to extubate. Sedation stopped, extubated safely, tube feeding stopped. SpO2 99% on RA, tongues is still slightly edematous with abrasion on tip where she bit it, tolerating clear liquids.
--- NOTE | 2022-10-17 05:29 | P.PN_ITS ---
Subjective Subjective Interval history: 46-year-old female with polysubstance dependence specifically cocaine and marijuana who was [id number] with recurrent angioedema requiring intubation/mechanical ventilation for airway protection.? She has been treated w/epinephrine, dexamethasone, benadryl and pepcid IV for angioedema. She did have a couple of episodes of hypotension yesterday am requiring IVF boluses. Echocardiogram performed yesterday showed new reduced EF, per on-call straightedge machine operator helper was consistent w/stress-cardiomyopathy (Takotsubu). Troponin 6.8 last night. Patient aroused earlier this morning and wanted the ET tube removed. Tele construction trades teacher approved and she was subsequently extubated. Tele- construction trades teacher recommended transfer to tertiary care facility for angiogram. However, Dr. Mohan who read the patient's echocardiogram yesterday felt very strongly that the patient had stress cardiomyopathy. She recommended the addition of a heparin infusion, aspirin, statin therapy, and a nuclear stress test to be performed for for discharge. Patient has had labile emotions overnight. She is been complaining of pain this morning. She is extremely tearful. She reports that she is angry at 1 of the staff who she felt did not treat her right this morning. She states that she has had 4 episodes of angioedema in the last 12 months. They have no clear trigger or morning. She states she received her COVID vaccine approximately 1 year ago and began having this problem 2 months later. She was told it was a side effect of the COVID vaccine. She denies any shortness of breath today. She reports mild pain in her throat from the ET tube. She complains of severe tongue pain. She also expresses the desire to discharge. She states she can not afford her hospitalization and does not qualify for assistance as she is over income. Exam Vital Signs (past 8 hours): - 10/16/22 22:00 10/16/22 23:00 10/17/22 00:00 Temperature 97.2 F L Pulse Rate 61 58 L 55 L Respiratory Rate 16 16 16 Blood Pressure 114/79 111/79 111/82 Pulse Oximetry 100 100 100 Oxygen Delivery Method Fraction of Inspired Oxygen 0.30 30 0.30 10/17/22 01:00 10/17/22 02:00 10/17/22 02:00 Temperature Pulse Rate 50 L 54 L Respiratory Rate 16 17 Blood Pressure 101/77 105/70 Pulse Oximetry 100 95 100 Oxygen Delivery Method Fraction of Inspired Oxygen 0.30 10/17/22 00:00 10/17/22 03:30 10/17/22 04:00 Temperature Pulse Rate 54 L Respiratory Rate 16 Blood Pressure 124/89 Pulse Oximetry 98 Oxygen Delivery Method Mechanical Ventilation Room Air Fraction of Inspired Oxygen Fraction of Inspired Oxygen 0.30 Oxygen Delivery Method Room Air Narrative Exam Narrative: GEN:? Alert, tearful, very anxious and confrontational HEENT:NC, face symmetric, abrasions noted sublingually, there is also abrasion noted to the tongue tip, decreased swelling overall, no cheek or lip swelling CHEST: Respiratory excursions symmetric, CTAB CV: Tachycardic with regular rhythm, no M/R/G ABD: Soft, NT/ND, BT present in all 4 quadrants, no organomegaly or masses EXTR: warm, well perfused, no C/C/E SKIN: warm and dry, no rash NEURO:? Anxious, alert and oriented x3 Objective Labs Result Diagrams: 10/17/22 01:20 10/17/22 01:20 Labs: Laboratory Results - last 24 hr 10/15/22 10/16/22 10/16/22 22:56 04:45 04:45 WBC 5.9 RBC 3.71 L Hgb 11.7 L Hct 35.1 L MCV 94.4 MCH 31.5 MCHC 33.3 RDW 13.2 Plt Count 227 Neut % (Auto) 89.4 H Lymph % (Auto) 7.5 L [place] % (Auto) 2.7 L Eos % (Auto) 0.0 L Baso % (Auto) 0.4 Neut # (Auto) 5300 Lymph # (Auto) 400 L [place] # (Auto) 200 Eos # (Auto) 0 Baso # (Auto) 0 APTT ABG pH ABG pCO2 ABG pO2 ABG HCO3 ABG Total CO2 ABG O2 Saturation ABG Base Excess FiO2 Sodium 142 Potassium 3.9 Chloride 104 Carbon Dioxide 25 BUN 11 Creatinine 0.87 Estimated GFR > 60 BUN/Creatinine Ratio 12.6 Glucose 194 H D Hemoglobin A1c 5.4 Calcium 8.5 Total Bilirubin 0.6 AST 70 H ALT 35 H Alkaline Phosphatase 74 Total Creatine Kinase CK-MB (CK-2) CK-MB (CK-2) Rel Index Troponin I Total Protein 7.7 Albumin 4.2 Globulin 3.5 Albumin/Globulin Ratio 1.2 10/16/22 10/16/22 10/16/22 15:19 21:30 23:10 WBC RBC Hgb Hct MCV MCH MCHC RDW Plt Count Neut % (Auto) Lymph % (Auto) [place] % (Auto) Eos % (Auto) Baso % (Auto) Neut # (Auto) Lymph # (Auto) [place] # (Auto) Eos # (Auto) Baso # (Auto) APTT 26 ABG pH 7.36 ABG pCO2 40.7 ABG pO2 105 H ABG HCO3 23 ABG Total CO2 24 ABG O2 Saturation 98 ABG Base Excess -3.0 L FiO2 30 Sodium Potassium Chloride Carbon Dioxide BUN Creatinine Estimated GFR BUN/Creatinine Ratio Glucose Hemoglobin A1c Calcium Total Bilirubin AST ALT Alkaline Phosphatase Total Creatine Kinase 258 H CK-MB (CK-2) 14.60 H CK-MB (CK-2) Rel Index 5.7 H Troponin I 6.810 H* Total Protein Albumin Globulin Albumin/Globulin Ratio 10/17/22 10/17/22 10/17/22 01:20 01:20 01:20 WBC 10.3 D RBC 4.00 Hgb 12.5 Hct 37.7 MCV 94.4 MCH 31.2 MCHC 33.1 RDW 13.2 Plt Count 229 Neut % (Auto) 81.9 H Lymph % (Auto) 11.0 L [place] % (Auto) 6.5 Eos % (Auto) 0.3 L Baso % (Auto) 0.3 Neut # (Auto) 8500 H Lymph # (Auto) 1100 [place]ick # (Auto) 700 Eos # (Auto) 0 Baso # (Auto) 0 APTT ABG pH ABG pCO2 ABG pO2 ABG HCO3 ABG Total CO2 ABG O2 Saturation ABG Base Excess FiO2 Sodium 137 Potassium 4.8 Chloride 103 Carbon Dioxide 27 BUN 16 Creatinine 0.79 Estimated GFR > 60 BUN/Creatinine Ratio 20.3 Glucose 155 H Hemoglobin A1c Calcium 8.5 Total Bilirubin 0.5 AST 62 H ALT 32 Alkaline Phosphatase 47 Total Creatine Kinase 244 H CK-MB (CK-2) 11.30 H CK-MB (CK-2) Rel Index 4.6 Troponin I 5.560 H* Total Protein 6.6 Albumin 3.5 Globulin 3.1 Albumin/Globulin Ratio 1.1 [facility] Medical History Abscess Chronic abdominal pain Cyclic vomiting syndrome Family history of angioedema Marijuana use, continuous MRSA (methicillin resistant staph aureus) culture positive Pancreatitis Surgical History Hx of appendectomy Hx of cholecystectomy Family History Father Hypertension Mother Diabetes mellitus Daughter Angio-edema Other Colon cancer Social History household members: spouse Smoking Status: Current every day smoker alcohol intake: current Assessment & Plan Assessment & Plan narrative: Angioedema with acute hypoxic respiratory failure Patient reports for previous presentations, but this was the 1st time she required intubation for airway protection. Steroids were discontinued overnight due to her emotional lability. Continues diphenhydramine and famotidine. Epinephrine was discontinued secondary to elevated troponin. Unclear etiology for the angioedema. C1, C3 and C4 levels have all been checked previously and were within normal limits. Will check a CRP and a sedimentation rate. We will check an IgE level. Takotsubo cardiomyopathy Echocardiogram done this admission revealed significant cardiomyopathy felt to be stress-induced. Ejection fraction was decreased to 30-35%, which is new from prior. Discussed importance of monitoring with the patient. She is very reluctant to remain in the hospital. NSTEMI versus elevated troponin related to takotsubo cardiomyopathy Patient was initiated on a heparin infusion per recommendations by Dr. Mohan. She was also initiated on aspirin and atorvastatin. Nuclear stress testing was recommended. This will be ordered. Patient is very reluctant to remain in the hospital until Wednesday to obtain a stress test. She was asking why a stress test can not be performed on the weekend. She also are good that we should be arranging for it to be performed at an alternative hospital. I did explain that most hospitals are full and would likely be unable to accomplish that prior to Wednesday anyway. She was very confrontational. Anxiety On Wellbutrin on an outpatient basis.? She will be restarted Hypertension Holding her outpatient antihypertensive therapy.? Blood pressure is normotensive Hyperglycemia Still A1c is 5.4%, hyperglycemia is likely stress induced. Hypotension Resolved Substance use disorder Patient reports she is not used cocaine recently and feels it has nothing to do with her current presentation. Code status Full Prophylaxis On Lovenox Disposition Intensive care unit. Patient is upset that she is using a commode, is on telemetry, and reports her television has not been working. 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 I did explain that they could be printed out and reviewed with her by her nurse. She does not wish to have her nurse review them. I have explained she can use the portal to see all of her labs and studies directly, but she states she can not access the portal. She wants a computer brought into the room so she could have free access to her chart. I have discussed this with the patient's nurse as the patient was poorly receptive to further conversation with me. Time Spent With Patient Critical Care time: I spent a total of [] minutes of critical care time on this patient's care today; this time is exclusive of procedural time. Quality VTE Deep Vein Thrombosis/Pulmonary Embolism Present on Admission: No
[2022-10-17 06:09] LABS: Creatine Kinase 730 U/L (30-135); PTT Partial Thromboplastin Tim 42 SECONDS (26-36)
[2022-10-17 06:30] LABS: CKMB % Relative Index 1.5 % (1.5-5.0)
--- NOTE | 2022-10-17 07:14 | P.TELICUPN_ITS ---
Subjective Subjective IF CAMERA ACTIVATED, patient seen via real-time interactive audiovisual communication: Camera activated Consent obtained for tele-assignment editor care: Yes Patient Location: ICU Provider location (State): [place] Other participants/roles: RN, hospitalist Interval history: Patient Summary: 46 yo W with PMH of angioedema, marijuana use and cocaine use who was admitted 10/15/22 with sudden tongue swelling and acute respiratory failure requiring intubation in ER. Pt. started on Epi drip, decardron, benadryl, and famotidine for angioedema. 10/16: Trop increased to > 6, patient taken off Epi drip and heparin drip started for NSTEMI. ECHO showed new cardiomyopathy (EF 30-35% with apical akinesis) Recent events: -Patient extubated at 2 am this morning -she is currently 2 L nc -per nurse patient's tongue swelling has improved -Patient is hemodynamically stable off Epi drip Current Medications Current Medications Medications: Home Medications bupropion HCl 100 mg tablet,12 hr sustained-release 100 mg PO DAILY #90 ea 07/25/22 [Rx Confirmed 10/16/22] potassium chloride 20 mEq tablet,extended release 40 meq PO DAILY #90 tabs 07/25/22 [Rx Confirmed 10/16/22] spironolactone 25 mg tablet 25 mg PO DAILY #90 tabs 07/25/22 [Rx Confirmed 10/16/22] Compazine 25 mg MN PRN PRN Nausea 10/16/22 [History Confirmed 10/16/22] Visit Medications (administered) Generic Name Dose Route Start Last Admin Trade Name Freq PRN Reason Stop Dose Admin Chlorhexidine Gluconate 15 ml 10/16/22 08:00 10/17/22 02:49 Chlorhexidine Gluconate 15 Ml Cup PO Not Given Q6H LINDA Diphenhydramine HCl 50 mg 10/16/22 08:00 10/17/22 03:01 Diphenhydramine 50 Mg/Ml Vial IV 50 mg Q6H LINDA Administration Famotidine 20 mg 10/16/22 10:30 10/16/22 20:18 Famotidine 20 Mg/2 Ml Vial IV 20 mg BID LINDA Administration dexmedeTOMIDine in 0.9 % NaCL 400 mcg in 100 mls @ 3.6 mls/hr 10/16/22 13:45 10/17/22 02:00 Precedex IV 0 mcg/kg/hr TITRATE LINDA 0 mls/hr Titration Protocol 0.2 MCG/KG/HR Heparin Sodium/Dextrose 25,000 unit in 500 mls @ 17.28 mls/hr 10/16/22 23:00 10/17/22 06:31 Heparin Drip IV 12.71 units/kg/hr CONT LINDA 18.3 mls/hr Titration Protocol 12 UNITS/KG/HR Insulin Human Lispro 0 unit 10/16/22 07:45 10/16/22 21:33 Insulin Lispro 100 Unit/Ml 3ml Vial SUBCUT Not Given ACHS [facility] Protocol Objective Ventilator Parameters: Ventilator Settings FiO2 30 RT Vent Frequency 16 Ventilator Tidal Volume 460 Exhaled Vt/kg IBW 8 Positive End Expiratory 5 Pressure Inspiratory Phase Time 0.8 I:E Ratio 1:3.7 Patient Position HOB >= 30 degrees Labs Result Diagrams: 10/17/22 01:20 10/17/22 01:20 Labs: Laboratory Results - last 24 hr 10/16/22 10/16/22 10/16/22 15:19 21:30 23:10 WBC RBC Hgb Hct MCV MCH MCHC RDW Plt Count Neut % (Auto) Lymph % (Auto) [place] % (Auto) Eos % (Auto) Baso % (Auto) Neut # (Auto) Lymph # (Auto) [place] # (Auto) Eos # (Auto) Baso # (Auto) APTT 26 ABG pH 7.36 ABG pCO2 40.7 ABG pO2 105 H ABG HCO3 23 ABG Total CO2 24 ABG O2 Saturation 98 ABG Base Excess -3.0 L FiO2 30 Sodium Potassium Chloride Carbon Dioxide BUN Creatinine Estimated GFR BUN/Creatinine Ratio Glucose Calcium Total Bilirubin AST ALT Alkaline Phosphatase Total Creatine Kinase 258 H CK-MB (CK-2) 14.60 H CK-MB (CK-2) Rel Index 5.7 H Troponin I 6.810 H* Total Protein Albumin Globulin Albumin/Globulin Ratio 10/17/22 10/17/22 10/17/22 01:20 01:20 01:20 WBC 10.3 D RBC 4.00 Hgb 12.5 Hct 37.7 MCV 94.4 MCH 31.2 MCHC 33.1 RDW 13.2 Plt Count 229 Neut % (Auto) 81.9 H Lymph % (Auto) 11.0 L [place] % (Auto) 6.5 Eos % (Auto) 0.3 L Baso % (Auto) 0.3 Neut # (Auto) 8500 H Lymph # (Auto) 1100 [place] # (Auto) 700 Eos # (Auto) 0 Baso # (Auto) 0 APTT ABG pH ABG pCO2 ABG pO2 ABG HCO3 ABG Total CO2 ABG O2 Saturation ABG Base Excess FiO2 Sodium 137 Potassium 4.8 Chloride 103 Carbon Dioxide 27 BUN 16 Creatinine 0.79 Estimated GFR > 60 BUN/Creatinine Ratio 20.3 Glucose 155 H Calcium 8.5 Total Bilirubin 0.5 AST 62 H ALT 32 Alkaline Phosphatase 47 Total Creatine Kinase 244 H CK-MB (CK-2) 11.30 H CK-MB (CK-2) Rel Index 4.6 Troponin I 5.560 H* Total Protein 6.6 Albumin 3.5 Globulin 3.1 Albumin/Globulin Ratio 1.1 10/17/22 10/17/22 05:45 05:45 WBC RBC Hgb Hct MCV MCH MCHC RDW Plt Count Neut % (Auto) Lymph % (Auto) [place] % (Auto) Eos % (Auto) Baso % (Auto) Neut # (Auto) Lymph # (Auto) [place] # (Auto) Eos # (Auto) Baso # (Auto) APTT 42 H D ABG pH ABG pCO2 ABG pO2 ABG HCO3 ABG Total CO2 ABG O2 Saturation ABG Base Excess FiO2 Sodium Potassium Chloride Carbon Dioxide BUN Creatinine Estimated GFR BUN/Creatinine Ratio Glucose Calcium Total Bilirubin AST ALT Alkaline Phosphatase Total Creatine Kinase 730 H D CK-MB (CK-2) 11.10 H CK-MB (CK-2) Rel Index 1.5 Troponin I 4.630 H* Total Protein Albumin Globulin Albumin/Globulin Ratio Exam Vital Signs (past 8 hours): - 10/17/22 00:00 10/17/22 01:00 10/17/22 02:00 Temperature 97.2 F L Pulse Rate 55 L 50 L Respiratory Rate 16 16 Blood Pressure 111/82 101/77 Pulse Oximetry 100 100 95 Oxygen Delivery Method Fraction of Inspired Oxygen 0.30 0.30 10/17/22 02:00 10/17/22 00:00 10/17/22 03:30 Temperature Pulse Rate 54 L 54 L Respiratory Rate 17 16 Blood Pressure 105/70 124/89 Pulse Oximetry 100 98 Oxygen Delivery Method Mechanical Ventilation Fraction of Inspired Oxygen 10/17/22 04:00 10/17/22 04:00 10/17/22 05:00 Temperature 98.2 F Pulse Rate 60 Respiratory Rate 20 20 Blood Pressure 98/69 Pulse Oximetry 99 Oxygen Delivery Method Room Air Fraction of Inspired Oxygen 10/17/22 06:00 Temperature Pulse Rate Respiratory Rate 21 Blood Pressure Pulse Oximetry Oxygen Delivery Method Fraction of Inspired Oxygen Fraction of Inspired Oxygen 0.30 Oxygen Delivery Method Room Air Narrative Exam Narrative: Patient seen through 2 way audio visual system. She is resting and breathing comfortably on room air Quality TeleICU VTE Deep Vein Thrombosis/Pulmonary Embolism Present on Admission: No Assessment & Plan Assessment & Plan narrative: Assessment Recurrent angioedema of unknown etiology Acute respiratory failure-resolved NSTEMI Hypertension Polysubstance abuse including cocaine Plan Angioedema- sig improved -off epi and decadron -continue famotidine and prn benadryl -monitor for any signs of recurrent worsening angioedema NSTEMI -aspirin and statin -heparin drip -awaiting transfer to another hospital for coronary angiogram New Cardiomyopathy with EF 30-35, ECHO shows apical akinesis which could be LAD disease vs Takotsubo cardiomyopathy HTN -ideally would like to start coreg especially given NSTEMI but patient's HR in the last 24 hours at times has been in the 50s, if HR improves consider start Coreg -ieallywould like to start an Cam-I for cardiomyopathy but given history of recurrent angioedema, will hold off on Cam-I and ARB for now -will start hydralazine for BP control for now CCT spent 50 min Time Spent With Patient Critical Care time: I spent a total of [] minutes of critical care time on this patient's care today; this time is exclusive of procedural time.
[2022-10-17] MEDS: LORazepam 0.5 MG TABLET PO ×3 (07:26→16:14)
--- NOTE | 2022-10-17 07:55 | PC.NURSE ---
Addendum entered by Elbert Painter R.N. 10/17/22 15:24: Accurate vital signs and I/O tracking made difficult for reasons listed in these notes. Insole Tape Stitcher Uco Dr. Miranda and hospitalist made aware. Addendum entered by Elbert Painter R.N. 10/17/22 12:58: Continues to have erratic moods. States they will be leaving, then decides to stay. Process has repeated throughout day. Dr. Tamez spoke with patient this morning and advised against leaving, I reinforced this notion. Patient stated she didn't need a doctor and could interpret the results herself. Continues to refuse some care and medications including vital signs Q1H. Addendum entered by Elbert Painter R.N. 10/17/22 08:45: Refusing some care and medications. Original Note: Skelton catheter removed, patient tolerated well, immediately voided. Volatile emotions from yelling and cursing angrily, to tearful and crying, and to happy and joking around. Ativan given per MAR and patient request.
[2022-10-17] MEDS: OXYCODONE IR 5 MG TABLET PO ×4 (08:17→20:57)
[2022-10-17] MEDS: buPROPion SR 100 MG TAB PO (08:17)
[2022-10-17] MEDS: ASPIRIN EC 81 MG TABLET PO (08:17)
[2022-10-17] MEDS: BENZOCAINE/MENTHOL 1 LOZ PKT 1 EACH PO ×3 (08:17→18:44)
[2022-10-17 09:01] LABS: Creatine Kinase 706 U/L (30-135)
[2022-10-17 09:03] LABS: C-Reactive Protein Quant < 0.5 mg/dL (<1.0)
[2022-10-17 09:17] LABS: CKMB % Relative Index 1.4 % (1.5-5.0); Creatine Kinase MB 9.65 ng/mL (<2.37)
[2022-10-17 09:32] LABS: Erythrocyte Sedimentation Rate 4 MM/HR (0-20)
[2022-10-17] MEDS: HYDRALAZINE 10 MG TABLET PO ×2 (10:53→18:48)
[2022-10-17 11:18] LABS: Creatine Kinase 841 U/L (30-135)
[2022-10-17 11:24] LABS: PTT Partial Thromboplastin Tim 47 SECONDS (26-36)
[2022-10-17 11:34] LABS: CKMB % Relative Index 1.1 % (1.5-5.0)
--- NOTE | 2022-10-17 13:20 | CM.DANOTE ---
Initial DCP Assessment Note Pt is a 46 yo female, resident of [facility] Narrative: long history of cyclic vomiting, polysubstance abuse and angioedema presents with swelling to her tongue, clenched jaw and complaints that she is continuing to bite her tongue PCP: Joanna Storm Payer: Self Pay Reviewed chart, patient arrived to the acute care floor intubated; now extubated and confrontational with medical staff this morning. This MANAGER E LEARNING using information available for review on patient's chart Patient with Recurrent angioedema, NSTEMI, and New Cardiomyopathy with EF 30-35 Patient advised to stay for stress test Wednesday, unsure if patient will be compliant with recs. Patient denies a problem with drug use at this time This CM team will plan to follow closely and remain available to assist with any DC needs or concerns that might arise. Medical POC still unfolding ULISES Alvarado Discharge Planning/Care Management CM Discharge Assessment Start: 10/17/22 13:17 Freq: Status: Active Protocol: Document 10/17/22 13:17 OLYA (Rec: 10/17/22 13:20 OLYA [id number]) Discharge Planning Assessment Assigned Pharmacy Coordinator ULISES Bright DPOA/Assigned Designee Name Narendra Issa, spouse Contact Information [phone] Advance Directives? No Advance Directives on File No History Provided By Medical Record Has Patient been admitted in last 30 Yes days? Comment Admissions include: January 2022 and two June 2022 visits. Multiple ER visits over the last 2 years d/t cyclic vomiting syndrome Prior Living Arrangements House Household Members spouse Type of transporation used prior to Drives own vehicle admit Independent with ADL's Yes Is patient alert and oriented? Yes Barriers to Discharge No Discharge Plan Home Transportation Arrangement Family to provide transport Referrals Initiated None needed
[2022-10-17 20:40] LABS: PTT Partial Thromboplastin Tim 37 SECONDS (26-36)
[2022-10-17] MEDS: ATORVASTATIN 20 MG TABLET 80 MG PO (20:57)
[2022-10-17] MEDS: FAMOTIDINE 20 MG TABLET PO (20:58)
[2022-10-18] VITALS (10 sets, daily range): BP systolic 105–137; BP diastolic 75–96; PULSE 90–118; RESP 16–22; TEMP 36.6–37.9; O2SAT 96–99
[2022-10-18] MEDS: LORazepam 0.5 MG TABLET PO ×4 (00:11→20:19)
[2022-10-18] MEDS: OXYCODONE IR 5 MG TABLET PO ×8 (00:11→20:19)
[2022-10-18] MEDS: BENZOCAINE/MENTHOL 1 LOZ PKT 1 EACH PO (01:26)
[2022-10-18] MEDS: HYDRALAZINE 10 MG TABLET PO (02:45)
[2022-10-18] MEDS: HEPARIN DRIP 25,000 UNIT/500 ML IV.SOLN 19.3 UNIT IV (02:46)
[2022-10-18 03:27] LABS: Alanine Aminotransferase 32 IU/L (<35); Albumin 3.6 g/dL (3.5-5.0); Albumin Globulin Ratio 1.2 (1.0-2.8); Alkaline Phosphatase 65 U/L (38-126); Aspartate Aminotransferase 54 IU/L (14-36); BUN Creatinine Ratio 15.7 (6-22); Bilirubin Total 1.1 mg/dL (0.2-1.3); Blood Urea Nitrogen 14 mg/dL (7-17); Calcium 8.3 mg/dL (8.4-10.2); Carbon Dioxide 33 mmol/L (22-32); Chloride 100 mmol/L (98-107); Estimated Glomerular Filt Rate > 60 mL/min (>60); Globulin 3.1 g/dL (1.7-4.1); Glucose 113 mg/dL (70-100); HEMOLYSIS < 15 (0-50); PTT Partial Thromboplastin Tim 31 SECONDS (26-36); Potassium 3.5 mmol/L (3.4-5.1); Sodium 137 mmol/L (137-145); Total Protein 6.7 g/dL (6.3-8.2)
[2022-10-18 03:47] LABS: Add Manual Diff / Slide Review NO; Basophils Absolute Auto 100 /uL (0-100); Basophils Percent Auto 0.8 % (0-2); Eosinophils Absolute Auto 0 /uL (0-450); Eosinophils Percent Auto 0.3 % (2-4); Hematocrit 33.5 % (36-46); Hemoglobin 11.4 g/dL (12.0-16.0); Lymphocytes Absolute Auto 2500 /uL (1100-4500); Lymphocytes Percent Auto 22.5 % (25-40); Mean Corpuscular HGB Conc 33.8 % (30-36); Mean Corpuscular Hemoglobin 31.7 PG (26-34); Mean Corpuscular Volume 93.6 fL (80-100); Monocytes Absolute Auto 600 /uL (0-900); Monocytes Percent Auto 5.8 % (3-14); Neutrophils Absolute Auto 7800 /uL (1500-7000); Neutrophils Percent Auto 70.6 % (50-75); Platelet Count 184 X10^3/uL (150-400); Red Blood Cell Count 3.58 X10^6/uL (4.0-5.2); Red Cell Distribution Width 13.4 % (11.6-14.8)
[2022-10-18] MEDS: HEPARIN 5,000 UNIT/ML VIAL 3000 UNIT IV (04:07)
[2022-10-18] MEDS: ACETAMINOPHEN 325 MG TABLET 650 MG PO ×2 (04:18→12:51)
--- NOTE | 2022-10-18 05:29 | PM.PN.1 ---
Subjective Subjective Interval history: 46-year-old female with polysubstance dependence specifically cocaine and marijuana who was [id number]? with recurrent angioedema requiring intubation/mechanical ventilation for airway protection.? She has been treated w/epinephrine, dexamethasone, benadryl and pepcid IV for angioedema.? She did have a couple of episodes of hypotension October 16 requiring IVF boluses. Echocardiogram performed October 16 showed new reduced EF, per on-call airline mechanic was consistent w/stress-cardiomyopathy (Takotsubu).? Troponin increased to 6.8.? Patient aroused principal systems architect hours of October 17 and wanted the ET tube removed.? Tele swimming professor approved and she was subsequently extubated.? Tele-swimming professor recommended transfer to tertiary care facility for angiogram.? However, Dr. Mohan who read the patient's echocardiogram felt very strongly that the patient had stress cardiomyopathy.? She recommended the addition of a heparin infusion, aspirin, statin therapy, and a nuclear stress test to be performed for for discharge. Patient has been emotionally very labile. She frequently complains about nursing staff and how she believes they are mistreating her. She is extremely tearful about a multitude of symptoms. Yesterday, she became very confrontational with me. She stated that she was a nursing did not need me to explain her labs or condition to her, but then when I would expound on her condition she would get angry and state that I have not explained it to her. She is been stable on a heparin drip which is due to discontinue at 11:00 p.m. tonight. She complains today of severe muscle pain in her arms shoulders and neck. She complains of hyperalgesia to her skin everywhere. She complains of itching and pain central line site despite dressings having been changed twice. She states her throat is sore from the ET tube. She complains of hoarseness related to that. She complains that her tongue is still extremely painful from her episode of angioedema. She is asking to have the central line discontinued and a peripheral IV placed possible. Exam Vital Signs (past 8 hours): - 10/17/22 22:22 10/18/22 02:45 10/18/22 02:45 Temperature 99.4 F Pulse Rate 104 H 115 H 114 H Respiratory Rate 16 16 Blood Pressure 123/92 H 127/94 H 127/94 H Pulse Oximetry 96 Oxygen Flow Rate 0 10/18/22 04:12 Temperature Pulse Rate 118 H Respiratory Rate Blood Pressure 120/94 H Pulse Oximetry Oxygen Flow Rate Fraction of Inspired Oxygen 0.30 Oxygen Delivery Method Room Air Oxygen Flow Rate 0 Const Other: GEN:? Alert, tearful, very anxious HEENT:NC, face symmetric, small ulceration noted to the tongue sublingually abrasion that was noted the tip of her tongue has now healed, no residual tongue, cheek, or lip swelling CHEST: Respiratory excursions symmetric, CTAB CV:? Tachycardic with regular rhythm, no M/R/G ABD: Soft, patient cries out during any exam, she has no evidence of peritoneal signs, BT present in all 4 quadrants, no organomegaly or masses EXTR: warm, well perfused, no C/C/E SKIN: warm and dry, no rash NEURO:? Anxious, alert and oriented x3 Objective Labs Result Diagrams: 10/18/22 03:00 10/18/22 03:00 Labs: Laboratory Results - last 24 hr 10/17/22 10/17/22 10/17/22 01:20 05:45 05:45 WBC RBC Hgb Hct MCV MCH MCHC RDW Plt Count Neut % (Auto) Lymph % (Auto) [place] % (Auto) Eos % (Auto) Baso % (Auto) Neut # (Auto) Lymph # (Auto) [place] # (Auto) Eos # (Auto) Baso # (Auto) ESR 4 APTT 42 H D Sodium Potassium Chloride Carbon Dioxide BUN Creatinine Estimated GFR BUN/Creatinine Ratio Glucose Calcium Total Bilirubin AST ALT Alkaline Phosphatase Total Creatine Kinase 730 H D CK-MB (CK-2) 11.10 H CK-MB (CK-2) Rel Index 1.5 Troponin I 4.630 H* C-Reactive Protein Total Protein Albumin Globulin Albumin/Globulin Ratio 10/17/22 10/17/22 10/17/22 07:30 07:30 11:00 WBC RBC Hgb Hct MCV MCH MCHC RDW Plt Count Neut % (Auto) Lymph % (Auto) [place] % (Auto) Eos % (Auto) Baso % (Auto) Neut # (Auto) Lymph # (Auto) [place] # (Auto) Eos # (Auto) Baso # (Auto) ESR APTT Sodium Potassium Chloride Carbon Dioxide BUN Creatinine Estimated GFR BUN/Creatinine Ratio Glucose Calcium Total Bilirubin AST ALT Alkaline Phosphatase Total Creatine Kinase 706 H 841 H CK-MB (CK-2) 9.65 H 9.00 H CK-MB (CK-2) Rel Index 1.4 L 1.1 L Troponin I 4.220 H* 4.120 H* C-Reactive Protein < 0.5 Total Protein Albumin Globulin Albumin/Globulin Ratio 10/17/22 10/17/22 10/18/22 11:00 19:15 03:00 WBC 11.0 RBC 3.58 L Hgb 11.4 L Hct 33.5 L MCV 93.6 MCH 31.7 MCHC 33.8 RDW 13.4 Plt Count 184 Neut % (Auto) 70.6 Lymph % (Auto) 22.5 L [place] % (Auto) 5.8 Eos % (Auto) 0.3 L Baso % (Auto) 0.8 Neut # (Auto) 7800 H Lymph # (Auto) 2500 [place] # (Auto) 600 Eos # (Auto) 0 Baso # (Auto) 100 ESR APTT 47 H 37 H D Sodium Potassium Chloride Carbon Dioxide BUN Creatinine Estimated GFR BUN/Creatinine Ratio Glucose Calcium Total Bilirubin AST ALT Alkaline Phosphatase Total Creatine Kinase CK-MB (CK-2) CK-MB (CK-2) Rel Index Troponin I C-Reactive Protein Total Protein Albumin Globulin Albumin/Globulin Ratio 10/18/22 10/18/22 03:00 03:00 WBC RBC Hgb Hct MCV MCH MCHC RDW Plt Count Neut % (Auto) Lymph % (Auto) [place] % (Auto) Eos % (Auto) Baso % (Auto) Neut # (Auto) Lymph # (Auto) [place] # (Auto) Eos # (Auto) Baso # (Auto) ESR APTT 31 D Sodium 137 Potassium 3.5 D Chloride 100 Carbon Dioxide 33 H BUN 14 Creatinine 0.89 Estimated GFR > 60 BUN/Creatinine Ratio 15.7 Glucose 113 H Calcium 8.3 L Total Bilirubin 1.1 AST 54 H ALT 32 Alkaline Phosphatase 65 Total Creatine Kinase CK-MB (CK-2) CK-MB (CK-2) Rel Index Troponin I C-Reactive Protein Total Protein 6.7 Albumin 3.6 Globulin 3.1 Albumin/Globulin Ratio 1.2 [facility] Medical History Abscess Chronic abdominal pain Cyclic vomiting syndrome Family history of angioedema Marijuana use, continuous MRSA (methicillin resistant staph aureus) culture positive Pancreatitis Surgical History Hx of appendectomy Hx of cholecystectomy Family History Father Hypertension Mother Diabetes mellitus Daughter Angio-edema Other Colon cancer Social History household members: spouse Smoking Status: Current every day smoker alcohol intake: current Assessment & Plan Assessment & Plan narrative: Angioedema with acute hypoxic respiratory failure Patient reports having had 4 previous presentations, but this was the 1st time she required intubation for airway protection.? Steroids were discontinued yesterday due to her emotional lability.? Continues diphenhydramine and famotidine.? Epinephrine was discontinued secondary to elevated troponin.? Unclear etiology for the angioedema.? C1, C3 and C4 levels have all been checked previously and were within normal limits.? Sedimentation rate was performed yesterday and was normal, IgE level sent and pending. CRP was normal at less than 0.5. She may have idiopathic angioedema. Would benefit from outpatient specialty consultation. Takotsubo cardiomyopathy Echocardiogram done this admission revealed significant cardiomyopathy felt to be stress-induced.? Ejection fraction was decreased to 30-35%, which is new from prior.? Today, patient is receptive to remaining in the hospital to undergo a nuclear stress test tomorrow. Yesterday she was very reluctant to stay. NSTEMI versus elevated troponin related to takotsubo cardiomyopathy Patient was initiated on a heparin infusion per recommendations by Dr. Mohan.? She was also initiated on aspirin and atorvastatin.? Nuclear stress testing was recommended.? This will hopefully be performed tomorrow. Heparin drip to be discontinued this evening. Anxiety Receiving Wellbutrin. Given her severe anxiety when I saw her this afternoon, will give an additional dose of lorazepam. I have also ordered Seroquel as needed for anxiety. Neck pain Appears to be spasm from a stiff neck rather than anything significantly concerning medically. Will treat with a hot towel as needed. Lorazepam will likely help as well. Hypertension Holding her outpatient antihypertensive therapy.? Blood pressures have ranged from 105-137/75-86. Hyperglycemia Still A1c is 5.4%, hyperglycemia is likely stress induced. Hypotension Resolved Substance use disorder Patient reports she is not used cocaine recently and feels it has nothing to do with her current presentation. Code status Full Prophylaxis On Lovenox Disposition Patient transitioned from ICU to acute care overnight. Hope to discharge tomorrow once results of her stress test are available. Time Spent With Patient Critical Care time: I spent a total of [] minutes of critical care time on this patient's care today; this time is exclusive of procedural time. Quality VTE Deep Vein Thrombosis/Pulmonary Embolism Present on Admission: No
[2022-10-18 05:56] LABS: Magnesium 1.7 mg/dL (1.6-2.3)
--- NOTE | 2022-10-18 06:16 | PC.NURSE ---
Excluding the SCD's and tubing.
--- NOTE | 2022-10-18 06:16 | PC.NURSE ---
Pt. continues to have labile mood swings. At the beginning of the shift pt. had so many complaints regarding a couple of employees and asked to see the charge nurse. Charge nurse called and came to bedside. Pt. continued to be manipulative, argumentative and confrontational like an energy vampire to the point that I have to confront her telling her that she is being very irrational and that she is really upsetting me. Since then, pt. has been apologetic and thankful. Her mood still is labile. Plan is to set limits to not encourage her manipulative behaviour.
[2022-10-18] MEDS: buPROPion SR 100 MG TAB PO (08:00)
[2022-10-18] MEDS: ASPIRIN EC 81 MG TABLET PO (08:01)
[2022-10-18] MEDS: FAMOTIDINE 20 MG TABLET PO ×2 (08:01→20:19)
[2022-10-18] MEDS: POTASSIUM CHLORIDE 20 MEQ/15 ML UDC 40 MEQ PO (10:52)
[2022-10-18] MEDS: diphenhydrAMINE 50 MG/ML VIAL IV (11:40)
[2022-10-18 13:06] LABS: PTT Partial Thromboplastin Tim 47 SECONDS (26-36)
[2022-10-18] MEDS: MAGNESIUM HYDROXIDE 30 ML UDC PO (15:29)
[2022-10-18] MEDS: LORazepam 2 MG/ML INJ 1 MG IV (15:29)
--- NOTE | 2022-10-18 19:16 | PC.NURSE ---
Pt continues to have erratic mood swings. AAOx4, frequently crying and anxious, attempted to provide emotional support as needed. PRN Ativan 0.5mg PO x2 and one time dose Ativan 1mg IV x1. Pt c/o generalized pain/soreness to neck/upper body, heat packs applied at pt's request, PRN Tylenol and PRN Oxy given with temporary relief, refer to MAR. R IJ TLC dressing also changed in hopes of providing greater relief for neck discomfort. Room air. VSS. Regular diet. No BM, one time dose Milk of Mag given. AUOP using toilet.
[2022-10-18] MEDS: ATORVASTATIN 20 MG TABLET 80 MG PO (20:18)
[2022-10-18] MEDS: QUETIAPINE 25 MG TABLET PO (20:19)
[2022-10-18] MEDS: SENNOSIDES 8.6 MG TABLET PO (20:19)
[2022-10-19] VITALS (12 sets, daily range): BP systolic 101–119; BP diastolic 67–86; PULSE 104–115; RESP 16–22; TEMP 36.9–38; O2SAT 97–99
[2022-10-19] MEDS: OXYCODONE IR 5 MG TABLET PO ×7 (01:49→23:49)
[2022-10-19] MEDS: LORazepam 0.5 MG TABLET PO ×4 (01:49→23:49)
[2022-10-19 02:29] LABS: Add Manual Diff / Slide Review NO; Basophils Absolute Auto 0 /uL (0-100); Basophils Percent Auto 0.7 % (0-2); Eosinophils Absolute Auto 100 /uL (0-450); Eosinophils Percent Auto 1.3 % (2-4); Hematocrit 32.7 % (36-46); Hemoglobin 10.9 g/dL (12.0-16.0); Lymphocytes Absolute Auto 2100 /uL (1100-4500); Lymphocytes Percent Auto 31.7 % (25-40); Mean Corpuscular HGB Conc 33.3 % (30-36); Mean Corpuscular Hemoglobin 31.3 PG (26-34); Mean Corpuscular Volume 94.2 fL (80-100); Monocytes Absolute Auto 400 /uL (0-900); Monocytes Percent Auto 5.6 % (3-14); Neutrophils Absolute Auto 4000 /uL (1500-7000); Neutrophils Percent Auto 60.7 % (50-75); Platelet Count 174 X10^3/uL (150-400); Red Blood Cell Count 3.47 X10^6/uL (4.0-5.2); Red Cell Distribution Width 13.3 % (11.6-14.8); White Blood Cell Count 6.6 X10^3/uL (4.5-11.0)
[2022-10-19 02:35] LABS: Alanine Aminotransferase 28 IU/L (<35); Albumin 3.8 g/dL (3.5-5.0); Albumin Globulin Ratio 1.2 (1.0-2.8); Alkaline Phosphatase 63 U/L (38-126); Aspartate Aminotransferase 33 IU/L (14-36); BUN Creatinine Ratio 9.9 (6-22); Bilirubin Total 1.4 mg/dL (0.2-1.3); Blood Urea Nitrogen 9 mg/dL (7-17); Calcium 8.3 mg/dL (8.4-10.2); Carbon Dioxide 26 mmol/L (22-32); Chloride 101 mmol/L (98-107); Estimated Glomerular Filt Rate > 60 mL/min (>60); Globulin 3.3 g/dL (1.7-4.1); Glucose 151 mg/dL (70-100); HEMOLYSIS < 15 (0-50); Potassium 3.8 mmol/L (3.4-5.1); Sodium 135 mmol/L (137-145); Total Protein 7.1 g/dL (6.3-8.2)
[2022-10-19] MEDS: SENNOSIDES 8.6 MG TABLET PO ×2 (08:08→20:42)
[2022-10-19] MEDS: FAMOTIDINE 20 MG TABLET PO ×2 (08:08→20:42)
[2022-10-19] MEDS: QUETIAPINE 25 MG TABLET PO (08:08)
[2022-10-19] MEDS: ASPIRIN EC 81 MG TABLET PO (08:08)
[2022-10-19] MEDS: buPROPion SR 100 MG TAB PO (08:08)
[2022-10-19] MEDS: ACETAMINOPHEN 325 MG TABLET 650 MG PO (08:25)
[2022-10-19] MEDS: BISACODYL 5 MG TABLET 10 MG PO (12:42)
--- NOTE | 2022-10-19 14:51 | CM.DPC ---
DCP Cont: Per MD, pt to have a Nuc Stress Test today and results returned and pt now needing hospital transfer for cardiac cath needs. Golf Coach to work on securing an accepting facility but likely may not happen until tomorrow. Per RN, pt has had spouse and family bedside and still having difficult behaviors with staff (rude, agitated, emotional rollercoaster, etc). Plan: SW to follow for plan of hospital transfer for higher level of care needs for cardiology. ULISES Alcantara
--- NOTE | 2022-10-19 15:20 | P.PN_ITS ---
Subjective Subjective Date Patient Seen: 10/19/22 Interval history: 46-year-old female with polysubstance dependence specifically cocaine and marijuana who was [id number]? with recurrent angioedema requiring intubation/mechanical ventilation for airway protection.? She has been treated w/epinephrine, dexamethasone, benadryl and pepcid IV for angioedema.? She did have a couple of episodes of hypotension October 16 requiring IVF boluses. Echocardiogram performed October 16 showed new reduced EF, per on-call finance manager was consistent w/stress-cardiomyopathy (Takotsubu).? Troponin increased to 6.8.? Patient aroused roller presser operator hours of October 17 and wanted the ET tube removed.? Tele trailer steerer approved and she was subsequently extubated.? Tele-trailer steerer recommended transfer to tertiary care facility for angiogram.? However, Dr. Mohan who read the patient's echocardiogram felt very strongly that the patient had stress cardiomyopathy.? She recommended the addition of a heparin infusion, aspirin, statin therapy, and a nuclear stress test to be performed today which was read as abnormal by the finance manager today, she is recommended for [facility] and we are attempting to transfer. Patient has been emotionally very labile, she wishes for answers as to why she keeps needing hospitalizations. She blames recurrent angioedema on her covid vaccine. She becomes upset when I cannot definitively state that as the cause. We tried to focus on her heart today and explain the current testing. She is agreeable for [facility] at this time for further evaluation of her heart. Exam Vital Signs (past 8 hours): - 10/19/22 08:25 10/19/22 10:56 10/19/22 11:00 Temperature 100.4 F H 98.8 F Blood Pressure 103/70 Pulse Oximetry Oxygen Delivery Method 10/19/22 08:07 Temperature Blood Pressure Pulse Oximetry 98 Oxygen Delivery Method Room Air Fraction of Inspired Oxygen 0.30 Oxygen Delivery Method Room Air Oxygen Flow Rate 0 Const Other: GEN:? Alert, tearful, very anxious HEENT:NC, face symmetric, small ulceration noted to the tongue sublingually abrasion that was noted the tip of her tongue has now healed, no residual tongue, cheek, or lip swelling CHEST: Respiratory excursions symmetric CV:? Tachycardic with regular rhythm EXTR: warm, well perfused, no C/C/E SKIN: warm and dry, no rash NEURO:? Anxious, alert and oriented x3 PSYCH: mild paranoia and fear / distrust of medical providers. Objective Labs Result Diagrams: 10/19/22 02:00 10/19/22 02:00 Labs: Laboratory Results - last 24 hr 10/19/22 10/19/22 02:00 02:00 WBC 6.6 RBC 3.47 L Hgb 10.9 L Hct 32.7 L MCV 94.2 MCH 31.3 MCHC 33.3 RDW 13.3 Plt Count 174 Neut % (Auto) 60.7 Lymph % (Auto) 31.7 [place] % (Auto) 5.6 Eos % (Auto) 1.3 L Baso % (Auto) 0.7 Neut # (Auto) 4000 Lymph # (Auto) 2100 [place] # (Auto) 400 Eos # (Auto) 100 Baso # (Auto) 0 Sodium 135 L Potassium 3.8 Chloride 101 Carbon Dioxide 26 BUN 9 Creatinine 0.91 Estimated GFR > 60 BUN/Creatinine Ratio 9.9 Glucose 151 H Calcium 8.3 L Total Bilirubin 1.4 H AST 33 ALT 28 Alkaline Phosphatase 63 Total Protein 7.1 Albumin 3.8 Globulin 3.3 Albumin/Globulin Ratio 1.2 PFSH Medical History Abscess Chronic abdominal pain Cyclic vomiting syndrome Family history of angioedema Marijuana use, continuous MRSA (methicillin resistant staph aureus) culture positive Pancreatitis Surgical History Hx of appendectomy Hx of cholecystectomy Family History Father Hypertension Mother Diabetes mellitus Daughter Angio-edema Other Colon cancer Social History household members: spouse Smoking Status: Current every day smoker alcohol intake: current Assessment & Plan Assessment & Plan narrative: Angioedema with acute hypoxic respiratory failure Patient reports having had 4 previous presentations, but this was the 1st time she required intubation for airway protection.? Steroids were discontinued due to emotional lability. Continues diphenhydramine and famotidine.? Epinephrine was discontinued secondary to elevated troponin.? Unclear etiology for the angioedema.? C1, C3 and C4 levels have all been checked previously and were within normal limits.? Sedimentation rate was performed yesterday and was nor mal, IgE level sent and pending. CRP was normal at less than 0.5. She may have idiopathic angioedema. Would benefit from outpatient specialty consultation. Takotsubo cardiomyopathy Echocardiogram done this admission revealed significant cardiomyopathy felt to be stress-induced.? Ejection fraction was decreased to 30-35%, which is new from prior.? Stress testing today was abnormal and patient is recommended for [facility], pending transfer NSTEMI versus elevated troponin related to takotsubo cardiomyopathy Patient was initiated on a heparin infusion per recommendations by Dr. Mohan.? She was also initiated on aspirin and atorvastatin.? Nuclear stress testing was performed today and was abnormal? continue asa and statin therapy transfer pending for [facility] Anxiety Receiving Wellbutrin. Given her severe anxiety when I saw her this afternoon, will give an additional dose of lorazepam. seroquel was attempted but [place] ent/spouse did not wish to continue this medication. Neck pain Appears to be spasm from a stiff neck rather than anything significantly concerning medically. Will treat with a hot towel as needed. Lorazepam will likely help as well. Hypertension Holding her outpatient antihypertensive therapy.? Blood pressures have ranged from 105-137/75-86. Hyperglycemia Still A1c is 5.4%, hyperglycemia is likely stress induced. Hypotension Resolved Substance use disorder Patient reports she is not used cocaine recently and feels it has nothing to do with her current presentation. Code status Full Prophylaxis On Lovenox Disposition Patient transitioned from ICU to acute care overnight. Hope to discharge tomorrow once results of her stress test are available. Time Spent With Patient Critical Care time: I spent a total of [] minutes of critical care time on this patient's care today; this time is exclusive of procedural time. Quality VTE Deep Vein Thrombosis/Pulmonary Embolism Present on Admission: No
[2022-10-19] MEDS: CHLORHEXIDINE GLUCONATE 15 ML CUP PO ×2 (16:03→20:42)
[2022-10-19] MEDS: SODIUM CHLORIDE 0.9% FLUSH 10 ML IV ×2 (18:30→20:43)
[2022-10-19] MEDS: ATORVASTATIN 20 MG TABLET 80 MG PO (20:42)
[2022-10-19] MEDS: BENZOCAINE/MENTHOL 1 LOZ PKT 1 EACH PO (20:42)
[2022-10-19] MEDS: diphenhydrAMINE 50 MG/ML VIAL IV (20:42)
--- NOTE | 2022-10-19 21:37 | DI.NM.S_ITS ---
DATE OF SERVICE: PROCEDURE: Pharmacological perfusion study. INDICATION: Stress-induced cardiomyopathy versus non ST-T [place]. RADIOPHARMACEUTICAL: 27.5 millicurie technetium-99m Myoview IV was injected at stress and 9.5 millicurie technetium-99m Myoview IV was injected at rest. CARDIAC STRESS: The patient underwent IV Lexiscan perfusion study under the supervision of an attending staff using standard intravenous Lexiscan, as per protocol. The patient remained hemodynamically stable. Baseline blood pressure 96/60. Baseline rhythm sinus with diffuse T-wave inversion involving inferior leads, as well as leads V3 to V6 and lateral leads. During stress, patient did not have any new significant ischemic changes. No significant arrhythmias. No obvious anginal symptoms. RAW DATA: There is increased subdiaphragmatic activity. Breast shadow was seen, as well. GATED STUDY: Stress LV ejection fraction 37 percent. There is a hypercontractility of the basal LV segments, but mid to distal LV segments, including apex, severely hypokinetic to akinetic. Stress end-diastolic volume 153 mL. Lung/heart ratio 0.29, which is within normal limits. TID ratio 1.05, which is within normal limits. MYOCARDIAL PERFUSION SCAN: Stress supine, resting supine and stress prone images were compared to each other. There appears to be predominantly fixed moderate-size severely decreased perfusion of mid to distal anterior wall extending into the mid to distal anteroseptum. There is also a moderate-size severely decreased perfusion of mid inferior wall extending into the mid inferolateral wall. No obvious reversible ischemia. CONCLUSION: This is an abnormal myocardial perfusion study, consistent with moderate size severe predominantly fixed defect of mid to distal anterior wall, mid to distal anteroseptum, as well as mid inferior wall extending into the mid inferolateral wall, consistent with infarction. Left ventricular ejection fraction 37 percent with wall motion abnormalities, as stated above. Correlate clinically and consider left heart catheterization to rule out occlusive coronary artery disease. In absence of coronary artery disease, other differential diagnosis is stress induced cardiomyopathy. Discussed the findings with Dr. Alfredo. Rhonda Yadav - Racheal/laura doc#: [id number]/job#: [id number] dd: 10/19/2022 12:57:00 dt: 10/19/2022 21:16:00 DICTATING MD/COPIES TO: Denise Mcrae MD COPIES MNE: ABHINAV;
[2022-10-20] VITALS: BP 100/72; PULSE 95; RESP 18; TEMP 36.6; O2SAT 99
--- NOTE | 2022-10-20 02:59 | PM.DS.1 ---
History of Present Illness History of Present Illness Chief complaint: Keeps biting tongue, Jaw clenched Narrative: Narrative by Dr. Danial Fortune, Hospitalist: Ms. Yadav is a 46W with H angioedema, marijuana and cocaine use who presents to the hospital with sudden onset of tongue swelling. Patient is intubated when being examined. But per report she developed tongue swelling but had no food or medication exposures. She reportedly has no recently used cocaine. While in the ED she had rapid worsening of her respiratory status with enlarging tongue and was intubated. She had previously been administered epi, and after intubation was started on an epi drip. She has had C1, and C4 sent multiple times previously and these have resulted as normal. In the ED workup was done, vitals initially notable for tachycardia and hypertension. Labs notable for WBC 11.1, hgb 12.3, plts 238. Creatinin 0.72. She was initially difficult to sedate and ultimately sedation was improved on propofol, fentanyl, and versed. On these medications her blood pressure became hypotensive and she was continued on the epi drip. She was transferred to the ICU for further treatment. Discharge Providers Provider Date of admission: 10/15/22 22:58 Discharge Date: 10/20/22 Primary care physician: Joanna Storm MD Consults: 10/16/22 10:13 Consult to Dietitian, Adult Routine Comment: Reason For Exam: intubated; tube feedings Discharge provider: PIPO Brownlee Summary Hospital Course Discharge Diagnosis: Idiopathic angioedema, NSTEMI Hospital Course: Rhonda Yadav presented to the emergency department with tongue swelling. She had no reported food or other kind of substance allergy. She developed respiratory distress and was emergently intubated, received FFP, TXA, and Solu-Medrol in consultation with our tele learning and development consultant service. She was started on an epinephrine drip and sedated with propofol and fentanyl. She did develop hypotension in the setting of her sedation and adjustments were made in the propofol and Versed. Echocardiogram was done on the and she was found to have an EF of 30-35% with new cardiomyopathy and new apical wall motion abnormalities. She was found to have moderate reduction of her left ventricular systolic function. She did have an elevated troponin on admission and apparently it peaked at 6.8 on the . At that time the epinephrine drip was stopped and she was started on a heparin drip which has now been stopped. She was extubated on the and underwent a myocardial perfusion study on the . Her LV ejection fraction was estimated to be 37% and she had a moderate-sized severe predominantly fixed defect of the mid to distal anterior wall, mid to distal anterior septum, as well as a mid inferior wall extending into the mid inferolateral wall consistent with infarction. Differential included stress induced cardiomyopathy. Patient's cardiac studies were reviewed by local consulting access services assistant who recommended that she be transferred to a tertiary facility to undergo a left heart catheterization. Unfortunately, hospitals closest to this facility did not have any beds available. Status at Discharge Cognitive/behavioral status at discharge: oriented Functional status at discharge: independent ambulation Overall status at discharge: patient is not back to baseline Exam Vital Signs (past 8 hours): - 10/19/22 19:55 10/19/22 21:30 10/19/22 19:00 Temperature 98.5 F 98.8 F Pulse Rate 104 H Respiratory Rate 18 Blood Pressure 110/74 Pulse Oximetry 97 97 Oxygen Delivery Method Room Air Oxygen Flow Rate 0 10/19/22 19:00 10/20/22 00:00 Temperature 97.9 F Pulse Rate 95 H Respiratory Rate 18 Blood Pressure 100/72 Pulse Oximetry 99 Oxygen Delivery Method Room Air Oxygen Flow Rate 0 Fraction of Inspired Oxygen 0.30 Oxygen Delivery Method Room Air Oxygen Flow Rate 0 Objective Labs Result Diagrams: 10/19/22 02:00 10/19/22 02:00 [facility] Medical History Abscess Chronic abdominal pain Cyclic vomiting syndrome Family history of angioedema Marijuana use, continuous MRSA (methicillin resistant staph aureus) culture positive Pancreatitis Surgical History Hx of appendectomy Hx of cholecystectomy Family History Father Hypertension Mother Diabetes mellitus Daughter Angio-edema Other Colon cancer Social History household members: spouse Smoking Status: Current every day smoker alcohol intake: current Discharge Assessment & Plan Assessment and Plan Assessment: NSTEMI vs Takosubo cardiomyopathy Idiopathic angioedema Plan of Treatment: Angioedema with acute hypoxic respiratory failure Patient reports having had 4 previous presentations, but this was the 1st time she required intubation for airway protection.? Steroids were discontinued due to emotional lability. Continues diphenhydramine and famotidine.? Epinephrine was discontinued secondary to elevated troponin.? Unclear etiology for the angioedema.? C1, C3 and C4 levels have all been checked previously and were within normal limits.? Sedimentation rate was performed yesterday and was normal, IgE level sent and pending.? CRP was normal at less than 0.5.? She may have idiopathic angioedema.? Would benefit from outpatient specialty consultation. Takotsubo cardiomyopathy Echocardiogram done this admission revealed significant cardiomyopathy felt to be stress-induced.? Ejection fraction was decreased to 30-35%, which is new from prior.?Stress testing today was abnormal and patient is recommended for [facility], pending transfer NSTEMI versus elevated troponin related to takotsubo cardiomyopathy Patient was initiated on a heparin infusion per recommendations by Aerial Advertiser, Dr. Mohan.? She was also initiated on aspirin and atorvastatin.? Nuclear stress testing was performed today and was abnormal?continue asa and statin therapy transfer pending for [facility] Anxiety Receiving Wellbutrin.? Given her severe anxiety when I saw her this afternoon, will give an additional dose of lorazepam. seroquel was attempted but patient/spouse did not wish to continue this medication. Neck pain Appears to be spasm from a stiff neck rather than anything significantly concerning medically.? Will treat with a hot towel as needed.? Lorazepam will likely help as well. Hypertension Holding her outpatient antihypertensive therapy.? Blood pressures have ranged from 105-137/75-86. Hyperglycemia Still A1c is 5.4%, hyperglycemia is likely stress induced. Hypotension Resolved Discharge Plan Discharge Plan Disposition: General Acute Hospital Discharge Data Primary Care Provider: Joanna Storm VTE Deep Vein Thrombosis/Pulmonary Embolism Present on Admission: No MIPS - Admit I confirm the patient?s Advance Care Plan is present, Code status is documented, Surrogate decision maker is in patient?s record [If Yes, STOP here]: Yes MIPS - DC The patient has current or prior documentation of left ventricular ejection fraction (LVEF) less than 40%, or moderate or severely depressed left ventricular systolic function.: Yes A. The patient was prescribed or already taking an Angiotensin-Converting Enzyme (JETT) Inhibitor, or Angiotensin Receptor Lou (ARB).: No B. The patient was prescribed or already taking a beta-lou. [If Yes to Both A & B, STOP here]: No Patient not prescribed/taking JETT or ARB for medical/patient/system reason(s) including (ex: allergy, intolerance, contraindication).: New diagnosis, transfer to tertiary facility, defer decision to them. Patient not prescribed/taking Beta-lou for medical/patient/system reason(s) including (ex: allergy, intolerance, contraindication).: New diagnosis, hypotension
[2022-10-20] MEDS: OXYCODONE IR 5 MG TABLET PO (03:06)
[2022-10-21 13:52] LABS: Immunoglobulin E 756 IU/mL (6-495)
== END 2022-10-20 03:55 | disposition short-term general hospital (02) | DRG 915 ==
LOC: ED 18:36 → AC 22:59 → ICU 10-16 00:17
PROVIDERS: Family Medicine; Internal Medicine Critical Care Medicine; Internal Medicine Pulmonary Disease; Admitting Provider Internal Medicine; Emergency Provider Emergency Medicine; Family Provider Internal Medicine; PCP Internal Medicine; Referring Provider Emergency Medicine; Visit Provider Internal Medicine
DX: T78.3XXA Angioneurotic edema, initial encounter (principal); G92.8 Other toxic encephalopathy; J96.01 Acute respiratory failure with hypoxia; I21.4 Non-ST elevation (NSTEMI) myocardial infarction; R57.9 Shock, unspecified; I51.81 Takotsubo syndrome; F17.290 Nicotine dependence, other tobacco product, uncomplicated; R73.9 Hyperglycemia, unspecified; F41.9 Anxiety disorder, unspecified; I10 Essential (primary) hypertension; M54.2 Cervicalgia; Z20.822 Contact with and (suspected) exposure to COVID-19
CPT/HCPCS: 36415; 36430; 36592; 36600; 71045; 78452; 80053; 80305; 81001; 81003; 81025; 82550; 82553; 82785; 82805; 82962; 83036; 83735; 84484; 85025; 85651; 85730; 86140; 86160; 86900; 86901; 86927; 87040; 87070; 87077; 87086; 87185; 87205; 87633; 87797; 93005; 93010; 93017; 93307; 94002; 94003; 94799; 96365; 96372; 96375; 99285; 99291; 99292; P9016; A9270; A9502; J0171; J0330; J1100; J1200; J1642; J1644; J1650; J1815; J2060; J2250; J2704; J2785; J2930; J3010

== ENCOUNTER 2023-01-20 15:35 | Emergency (ER) | payer OTHER, MEDICAID, SELFPAY ==
[2022-10-15 20:26] VITALS: RESP 16
[2022-10-16 01:00] VITALS: BMI 26.4
[2022-10-16 18:12] VITALS: O2SAT 100
[2022-10-16 21:07] VITALS: PULSE 63; RESP 16
[2023-01-20] VITALS (16 sets, daily range): BP systolic 102–174; BP diastolic 60–104; PULSE 79–98; RESP 13–24; TEMP 37.1; O2SAT 93–100; BMI 24.3
--- NOTE | 2023-01-20 16:14 | DI.RAD.S_ITS ---
PROCEDURE: XR ABDOMEN 1V INDICATIONS: severe abdominal pain, N/V TECHNIQUE: One view of the abdomen acquired. COMPARISON: [facility], ABDOMEN 2 VIEW, 04/07/2017, 19:12. [facility], , ABDOMEN 2 VIEW, 03/04/2015, 19:08. FINDINGS: Prominent but not definitively dilated gas-filled loops of small bowel present at the lower abdomen. Gas is visualized within the colon to the level of the rectum. Metal clips project over the right abdomen as before. IUD projects over the pelvis. IMPRESSION: Nonspecific bowel gas pattern. No definitively dilated loops of bowel identified. CT abdomen pelvis could be obtained if clinically indicated Dictated by: Pramod Vargas M.D. on 01/20/2023 at 18:31 Approved by: Pramod Vargas M.D. on 01/20/2023 at 18:33
[2023-01-20] MEDS: PANTOPRAZOLE 40 MG VIAL IV (16:32)
[2023-01-20] MEDS: SODIUM CHLORIDE 0.9% 1,000 ML 1000 ML IV ×2 (16:32→19:34)
[2023-01-20] MEDS: HALOPERIDOL 5 MG/ML VIAL IV (16:32)
[2023-01-20 16:34] LABS: Add Manual Diff / Slide Review NO; Basophils Absolute Auto 0 /uL (0-100); Basophils Percent Auto 0.3 % (0-2); Eosinophils Absolute Auto 0 /uL (0-450); Eosinophils Percent Auto 0.1 % (2-4); Hematocrit 41.9 % (36-46); Lymphocytes Absolute Auto 800 /uL (1100-4500); Mean Corpuscular HGB Conc 33.5 % (30-36); Mean Corpuscular Hemoglobin 30.7 PG (26-34); Mean Corpuscular Volume 91.5 fL (80-100); Monocytes Absolute Auto 300 /uL (0-900); Monocytes Percent Auto 2.9 % (3-14); Neutrophils Absolute Auto 8800 /uL (1500-7000); Neutrophils Percent Auto 88.7 % (50-75); Platelet Count 293 X10^3/uL (150-400); Red Blood Cell Count 4.57 X10^6/uL (4.0-5.2); Red Cell Distribution Width 13.4 % (11.6-14.8); White Blood Cell Count 9.9 X10^3/uL (4.5-11.0)
--- NOTE | 2023-01-20 16:36 | PC.NURSE ---
rn entered room pt on all fours crawling out of foot of bed, instructed pt to return to top of bed and that because she has an iv that im giving fluids and meds via she must stay in bed and not get up or crawl around bed that i need iv to remain in.
[2023-01-20 16:47] LABS: Albumin 5.3 g/dL (3.5-5.0); Albumin Globulin Ratio 1.2 (1.0-2.8); Alkaline Phosphatase 103 U/L (38-126); Aspartate Aminotransferase 34 IU/L (14-36); BUN Creatinine Ratio 18.3 (6-22); Blood Urea Nitrogen 15 mg/dL (7-17); Carbon Dioxide 21 mmol/L (22-32); Chloride 101 mmol/L (98-107); Estimated Glomerular Filt Rate > 60 mL/min (>60); Globulin 4.3 g/dL (1.7-4.1); Glucose 172 mg/dL (70-100); HEMOLYSIS < 15 (0-50); Potassium 3.4 mmol/L (3.4-5.1); Sodium 143 mmol/L (137-145); Total Protein 9.6 g/dL (6.3-8.2)
[2023-01-20 16:53] LABS: Alanine Aminotransferase 38 IU/L (<35)
[2023-01-20 17:01] LABS: Lactate (Lactic Acid) 5.4 mmol/L (0.7-2.1)
--- NOTE | 2023-01-20 17:14 | ED.NAVMDI ---
HPI - Nausea/Vomiting/Diarrhea <Sean Barrett DO - Last Filed: 01/21/23 06:44> General Chief complaint: Nausea/Vomiting/Diarrhea Stated complaint: vomiting Time Seen by Provider: 01/20/23 16:13 Source: patient Mode of arrival: Ambulatory History of Present Illness HPI Narrative: 47-year-old female with history of cyclic vomiting, abdominal migraines and prior electrolyte abnormalities presents with her significant other and a chief complaint of severe abdominal pain and multiple episodes of nausea and vomiting over the course of the day. She denies any change in her medications or diet. She is had no fever or chills. She complains of severe generalized crampy abdominal pain that comes in waves without warning. She is had no runny nose, sore throat or cough. She denies chest pain or shortness of breath. She denies any change in her bowel habits. Related Data Home Medications Medication Instructions Recorded Confirmed Compazine 25 mg MI PRN PRN Nausea 10/16/22 10/16/22 Previous Rx's Medication Instructions Recorded bupropion HCl 100 mg tablet,12 hr 100 mg PO DAILY #90 ea 07/25/22 sustained-release potassium chloride 20 mEq 40 meq PO DAILY #90 tabs 07/25/22 tablet,extended release spironolactone 25 mg tablet 25 mg PO DAILY #90 tabs 07/25/22 promethazine 25 mg rectal 25 mg MI Q4-6H PRN nausea and 01/20/23 suppository vomiting #12 ea Allergies Allergy/AdvReac Type Severity Reaction Status Date / Time promethazine [PROMETHAZINE] Allergy Mild ERYTHEMA Verified 07/24/22 09:42 TO IV SITE PT STATES ABLE TO TAKE MI latex [LATEX] Allergy Unknown Verified 07/24/22 09:42 metoclopramide AdvReac Unknown DYSTONIA Verified 07/24/22 09:42 [METOCLOPRAMIDE] Review of Systems <Sean Barrett DO - Last Filed: 01/21/23 06:44> Review of Systems Narrative: GENERAL: Denies chills, fatigue, malaise, fever, sweats. HEENT: Denies sinus pain, ear pain, sore throat, difficulty swallowing, dizziness. RESPIRATORY: Denies dyspnea, cough, wheezing, hemoptysis, sputum. CARDIOVASCULAR: Denies chest pain, palpitations, orthopnea, edema, GASTROINTESTINAL: See HPI : Denies dysuria, frequency, incontinence, hematuria, urinary retention. MUSCULOSKELETAL: denies weakness, joint pain, or bony pain SKIN: Denies rash, skin lesions, or other NEUROLOGIC: Denies weakness, headache, numbness, change in speech, confusion, seizures, incoordination. PSYCHIATRIC: No concerning psychosocial issues. 12 point review of systems is negative except for those stated above Patient History <Sean Barrett DO - Last Filed: 01/21/23 06:44> Medical History Abscess Chronic abdominal pain Cyclic vomiting syndrome Family history of angioedema Marijuana use, continuous MRSA (methicillin resistant staph aureus) culture positive Pancreatitis Surgical History Hx of appendectomy Hx of cholecystectomy Family History Father Hypertension Mother Diabetes mellitus Daughter Angio-edema Other Colon cancer Social History household members: spouse Smoking Status: Current every day smoker alcohol intake: current Smoking Status: Current every day smoker tobacco type: vaping alcohol intake frequency: 3 or more drinks per day Alcohol type: wine Substance Use Type: former substance user, marijuana and methamphetamine Exam <Sean Barrett DO - Last Filed: 01/21/23 06:44> Narrative Exam Narrative: GENERAL: [47] year old patient appears stated age. Well-developed patient, in obvious distress. Pacing HEAD: Atraumatic. Normocephalic. EYES: Pupils equal round and reactive. Extraocular motions intact. No scleral icterus. No injection or drainage. ENT: Nose without bleeding, purulent drainage. Throat without erythema, tonsillar hypertrophy or exudate. Airway patent. NECK: Trachea midline. Non tender CARDIOVASCULAR: Regular rate and rhythm without murmurs, gallops, or rubs. RESPIRATORY: Clear to auscultation. Breath sounds equal bilaterally. No wheezes, rales, or rhonchi. GASTROINTESTINAL: Abdomen soft,severe generalized tenderness, soft, bowel sounds present, nondistended. EXTREMITIES: No edema or joint tenderness. BACK: Nontender without deformity or crepitance. No flank tenderness. NEURO: AOx3. SKIN: No rash or erythema of visible areas Initial Vital Signs Initial Vital Signs: Vital Signs Temperature 98.7 F 01/20/23 16:02 Pulse Rate 91 H 01/20/23 16:02 Respiratory Rate 24 01/20/23 16:02 Blood Pressure 156/104 H 01/20/23 16:02 Pulse Oximetry 100 01/20/23 16:02 Oxygen Delivery Method 01/20/23 16:02 <Brady Huerta DO - Last Filed: 01/21/23 01:51> Initial Vital Signs Initial Vital Signs: Vital Signs Temperature 98.7 F 01/20/23 16:02 Pulse Rate 91 H 01/20/23 16:02 Respiratory Rate 24 01/20/23 16:02 Blood Pressure 156/104 H 01/20/23 16:02 Pulse Oximetry 100 01/20/23 16:02 Oxygen Delivery Method 01/20/23 16:02 Course <Sean Barrett DO - Last Filed: 01/21/23 06:44> Orders Ordered: Discontinued Medications Haloperidol (Haloperidol 5 Mg/Ml Vial) 5 mg IV NOW ONE Stop: 01/20/23 16:14 Last Admin: 01/20/23 16:32 Dose: 5 mg Documented By: ALEX Sodium Chloride (Normal Saline 0.9%) 1,000 mls @ 1,000 mls/hr IV BOLUS ONE Stop: 01/20/23 17:12 Last Infusion: 01/20/23 17:39 Dose: 0 mls/hr Documented By: ALEX(2) Admin: 01/20/23 16:32 Dose: 1,000 mls/hr Documented By: ALEX Sodium Chloride (Normal Saline 0.9%) 1,000 mls @ 1,000 mls/hr IV BOLUS ONE Stop: 01/20/23 19:51 Last Infusion: 01/20/23 19:42 Dose: 1,000 mls/hr Documented By: Admin: 01/20/23 19:34 Dose: 1,000 mls/hr Documented By: CHRISTOPHER Lorazepam (Lorazepam 2 Mg/Ml Inj) 1 mg IV NOW ONE Stop: 01/20/23 17:34 Last Admin: 01/20/23 17:38 Dose: 1 mg Documented By: ALEX(2) Pantoprazole Sodium (Pantoprazole 40 Mg Vial) 40 mg IV NOW ONE Stop: 01/20/23 16:14 Last Admin: 01/20/23 16:32 Dose: 40 mg Documented By: ALEX Reevaluation(s) Reevaluation #1: Patient with moderate improvement after Haldol, requesting Ativan Reevaluation #2: Patient feeling significant improvement, resting comfortably Vital Signs Vital signs: Vital Signs - 8 hr 01/20/23 17:58 01/20/23 17:58 01/20/23 18:00 Pulse Rate 79 Respiratory Rate 18 Blood Pressure 118/64 110/62 Pulse Oximetry 96 96 01/20/23 18:00 01/20/23 18:30 01/20/23 18:30 Pulse Rate 86 93 H Respiratory Rate Blood Pressure 102/60 Pulse Oximetry 95 95 01/20/23 19:00 01/20/23 19:00 01/20/23 19:30 Pulse Rate 94 H 98 H Respiratory Rate Blood Pressure 108/60 Pulse Oximetry 96 99 01/20/23 20:00 01/20/23 20:30 01/20/23 20:59 Pulse Rate 86 97 H 91 H Respiratory Rate Blood Pressure Pulse Oximetry 98 95 97 01/20/23 20:59 01/20/23 21:00 01/20/23 21:00 Pulse Rate 90 Respiratory Rate Blood Pressure 121/78 127/74 Pulse Oximetry 98 01/20/23 21:11 01/20/23 21:11 01/20/23 21:30 Pulse Rate 86 Respiratory Rate Blood Pressure 144/87 H 174/89 H Pulse Oximetry 98 01/20/23 21:30 01/20/23 22:00 01/20/23 22:00 Pulse Rate 94 H 98 H Respiratory Rate Blood Pressure 118/65 Pulse Oximetry 99 96 <Brady Huerta DO - Last Filed: 01/21/23 01:51> Orders Ordered: Discontinued Medications Haloperidol (Haloperidol 5 Mg/Ml Vial) 5 mg IV NOW ONE Stop: 01/20/23 16:14 Last Admin: 01/20/23 16:32 Dose: 5 mg Documented By: ALEX Sodium Chloride (Normal Saline 0.9%) 1,000 mls @ 1,000 mls/hr IV BOLUS ONE Stop: 01/20/23 17:12 Last Infusion: 01/20/23 17:39 Dose: 0 mls/hr Documented By: ALEX(2) Admin: 01/20/23 16:32 Dose: 1,000 mls/hr Documented By: ALEX Sodium Chloride (Normal Saline 0.9%) 1,000 mls @ 1,000 mls/hr IV BOLUS ONE Stop: 01/20/23 19:51 Last Infusion: 01/20/23 19:42 Dose: 1,000 mls/hr Documented By: Admin: 01/20/23 19:34 Dose: 1,000 mls/hr Documented By: CHRISTOPHER Lorazepam (Lorazepam 2 Mg/Ml Inj) 1 mg IV NOW ONE Stop: 01/20/23 17:34 Last Admin: 01/20/23 17:38 Dose: 1 mg Documented By: ALEX(2) Pantoprazole Sodium (Pantoprazole 40 Mg Vial) 40 mg IV NOW ONE Stop: 01/20/23 16:14 Last Admin: 01/20/23 16:32 Dose: 40 mg Documented By: ALEX Vital Signs Vital signs: Vital Signs - 8 hr 01/20/23 17:58 01/20/23 17:58 01/20/23 18:00 Pulse Rate 79 Respiratory Rate 18 Blood Pressure 118/64 110/62 Pulse Oximetry 96 96 01/20/23 18:00 01/20/23 18:30 01/20/23 18:30 Pulse Rate 86 93 H Respiratory Rate Blood Pressure 102/60 Pulse Oximetry 95 95 01/20/23 19:00 01/20/23 19:00 01/20/23 19:30 Pulse Rate 94 H 98 H Respiratory Rate Blood Pressure 108/60 Pulse Oximetry 96 99 01/20/23 20:00 01/20/23 20:30 01/20/23 20:59 Pulse Rate 86 97 H 91 H Respiratory Rate Blood Pressure Pulse Oximetry 98 95 97 01/20/23 20:59 01/20/23 21:00 01/20/23 21:00 Pulse Rate 90 Respiratory Rate Blood Pressure 121/78 127/74 Pulse Oximetry 98 01/20/23 21:11 01/20/23 21:11 01/20/23 21:30 Pulse Rate 86 Respiratory Rate Blood Pressure 144/87 H 174/89 H Pulse Oximetry 98 01/20/23 21:30 01/20/23 22:00 01/20/23 22:00 Pulse Rate 94 H 98 H Respiratory Rate Blood Pressure 118/65 Pulse Oximetry 99 96 MDM - Nausea/Vomiting/Diarrhea <Sean [place], DO - Last Filed: 01/21/23 06:44> Lab Data 01/20/23 16:25 01/20/23 16:25 Labs: Lab Results 01/20/23 01/20/23 01/20/23 Range/Units 16:25 16:25 16:25 WBC 9.9 (4.5-11.0) X10^3/uL RBC 4.57 (4.0-5.2) X10^6/uL Hgb 14.0 (12.0-16.0) g/dL Hct 41.9 (36-46) % MCV 91.5 (80-100) fL MCH 30.7 (26-34) PG MCHC 33.5 (30-36) % RDW 13.4 (11.6-14.8) % Plt Count 293 (150-400) X10^3/uL Neut % (Auto) 88.7 H (50-75) % Lymph % (Auto) 8.0 L (25-40) % Harrison % (Auto) 2.9 L (3-14) % Eos % (Auto) 0.1 L (2-4) % Baso % (Auto) 0.3 (0-2) % Neut # (Auto) 8800 H (8038-5401) /uL Lymph # (Auto) 800 L (3109-5593) /uL Harrison # (Auto) 300 (0-900) /uL Eos # (Auto) 0 (0-450) /uL Baso # (Auto) 0 (0-100) /uL Sodium 143 (137-145) mmol/L Potassium 3.4 (3.4-5.1) mmol/L Chloride 101 (98-107) mmol/L Carbon Dioxide 21 L (22-32) mmol/L BUN 15 (7-17) mg/dL Creatinine 0.82 (0.52-1.04) mg/dL Estimated GFR > 60 (>60) mL/min BUN/Creatinine Ratio 18.3 (6-22) Glucose 172 H (70-100) mg/dL Lactate 5.4 H* (0.7-2.1) mmol/L Calcium 10.0 (8.4-10.2) mg/dL Total Bilirubin 1.0 (0.2-1.3) mg/dL AST 34 (14-36) IU/L ALT 38 H (<35) IU/L Alkaline Phosphatase 103 (38-126) U/L Total Protein 9.6 H (6.3-8.2) g/dL Albumin 5.3 H (3.5-5.0) g/dL Globulin 4.3 H (1.7-4.1) g/dL Albumin/Globulin Ratio 1.2 (1.0-2.8) 01/20/23 Range/Units 18:49 WBC (4.5-11.0) X10^3/uL RBC (4.0-5.2) X10^6/uL Hgb (12.0-16.0) g/dL Hct (36-46) % MCV (80-100) fL MCH (26-34) PG MCHC (30-36) % RDW (11.6-14.8) % Plt Count (150-400) X10^3/uL Neut % (Auto) (50-75) % Lymph % (Auto) (25-40) % Harrison % (Auto) (3-14) % Eos % (Auto) (2-4) % Baso % (Auto) (0-2) % Neut # (Auto) (3270-3958) /uL Lymph # (Auto) (5817-2115) /uL Harrison # (Auto) (0-900) /uL Eos # (Auto) (0-450) /uL Baso # (Auto) (0-100) /uL Sodium (137-145) mmol/L Potassium (3.4-5.1) mmol/L Chloride (98-107) mmol/L Carbon Dioxide (22-32) mmol/L BUN (7-17) mg/dL Creatinine (0.52-1.04) mg/dL Estimated GFR (>60) mL/min BUN/Creatinine Ratio (6-22) Glucose (70-100) mg/dL Lactate 1.6 (0.7-2.1) mmol/L Calcium (8.4-10.2) mg/dL Total Bilirubin (0.2-1.3) mg/dL AST (14-36) IU/L ALT (<35) IU/L Alkaline Phosphatase (38-126) U/L Total Protein (6.3-8.2) g/dL Albumin (3.5-5.0) g/dL Globulin (1.7-4.1) g/dL Albumin/Globulin Ratio (1.0-2.8) Point of Care Testing Glucose POC 173 MDM Narrative Medical decision making narrative: CC: 47-year-old female with history of abdominal pain, vomiting Complicating co-morbidities: Abdominal migraines, intractable vomiting, cyclic vomiting Data collected from: Patient Medical records reviewed: Multiple prior visits here Differential considered, but not limited to: Cyclic vomiting, abdominal migraine, bowel obstruction, electrolyte abnormality versus other Exam documented above, pertinent findings include: obviously in pain, holding an emesis bag, pacing, heart rate regular, lungs clear, abdomen tender but soft Lab Test results independently reviewed as above. Pertinent findings: No significant leukocytosis though there is a small relative left shift Independently reviewed EKG as above Imaging studies independently reviewed:No significant abnormality Treatments: Patient demonstrates significant improvement after above-stated therapies Disposition: see below, along with detailed discharge instructions that have been reviewed with patient as well as indications for ED re-evaluation and additional outpatient follow up Dr huerta: Received turned over. Reviewed patient's history and physical exam. For my own independent exam. After an extended period of time in the emergency department patient was able to tolerate oral intake and had no further vomiting. There is no indication for antibiotics. No indication for surgical consultation. Patient and family at bedside stated that they felt comfortable going home. I will refill her prescription for rectal Phenergan. Will discharge patient home with return precautions. They expressed understanding and agreement. <Brady Huerta, DO - Last Filed: 01/21/23 01:51> Lab Data Labs: Lab Results 01/20/23 01/20/23 01/20/23 Range/Units 16:25 16:25 16:25 WBC 9.9 (4.5-11.0) X10^3/uL RBC 4.57 (4.0-5.2) X10^6/uL Hgb 14.0 (12.0-16.0) g/dL Hct 41.9 (36-46) % MCV 91.5 (80-100) fL MCH 30.7 (26-34) PG MCHC 33.5 (30-36) % RDW 13.4 (11.6-14.8) % Plt Count 293 (150-400) X10^3/uL Neut % (Auto) 88.7 H (50-75) % Lymph % (Auto) 8.0 L (25-40) % Harrison % (Auto) 2.9 L (3-14) % Eos % (Auto) 0.1 L (2-4) % Baso % (Auto) 0.3 (0-2) % Neut # (Auto) 8800 H (0460-1774) /uL Lymph # (Auto) 800 L (9828-4931) /uL Harrison # (Auto) 300 (0-900) /uL Eos # (Auto) 0 (0-450) /uL Baso # (Auto) 0 (0-100) /uL Sodium 143 (137-145) mmol/L Potassium 3.4 (3.4-5.1) mmol/L Chloride 101 (98-107) mmol/L Carbon Dioxide 21 L (22-32) mmol/L BUN 15 (7-17) mg/dL Creatinine 0.82 (0.52-1.04) mg/dL Estimated GFR > 60 (>60) mL/min BUN/Creatinine Ratio 18.3 (6-22) Glucose 172 H (70-100) mg/dL Lactate 5.4 H* (0.7-2.1) mmol/L Calcium 10.0 (8.4-10.2) mg/dL Total Bilirubin 1.0 (0.2-1.3) mg/dL AST 34 (14-36) IU/L ALT 38 H (<35) IU/L Alkaline Phosphatase 103 (38-126) U/L Total Protein 9.6 H (6.3-8.2) g/dL Albumin 5.3 H (3.5-5.0) g/dL Globulin 4.3 H (1.7-4.1) g/dL Albumin/Globulin Ratio 1.2 (1.0-2.8) 01/20/23 Range/Units 18:49 WBC (4.5-11.0) X10^3/uL RBC (4.0-5.2) X10^6/uL Hgb (12.0-16.0) g/dL Hct (36-46) % MCV (80-100) fL MCH (26-34) PG MCHC (30-36) % RDW (11.6-14.8) % Plt Count (150-400) X10^3/uL Neut % (Auto) (50-75) % Lymph % (Auto) (25-40) % Harrison % (Auto) (3-14) % Eos % (Auto) (2-4) % Baso % (Auto) (0-2) % Neut # (Auto) (2031-9411) /uL Lymph # (Auto) (8939-9090) /uL Harrison # (Auto) (0-900) /uL Eos # (Auto) (0-450) /uL Baso # (Auto) (0-100) /uL Sodium (137-145) mmol/L Potassium (3.4-5.1) mmol/L Chloride (98-107) mmol/L Carbon Dioxide (22-32) mmol/L BUN (7-17) mg/dL Creatinine (0.52-1.04) mg/dL Estimated GFR (>60) mL/min BUN/Creatinine Ratio (6-22) Glucose (70-100) mg/dL Lactate 1.6 (0.7-2.1) mmol/L Calcium (8.4-10.2) mg/dL Total Bilirubin (0.2-1.3) mg/dL AST (14-36) IU/L ALT (<35) IU/L Alkaline Phosphatase (38-126) U/L Total Protein (6.3-8.2) g/dL Albumin (3.5-5.0) g/dL Globulin (1.7-4.1) g/dL Albumin/Globulin Ratio (1.0-2.8) Point of Care Testing Glucose POC 173 MDM Narrative Medical decision making narrative: CC: 47-year-old female with history of abdominal pain, vomiting Complicating co-morbidities: Abdominal migraines, intractable vomiting, cyclic vomiting Data collected from: Patient Medical records reviewed: Multiple prior visits here Differential considered, but not limited to: Cyclic vomiting, abdominal migraine, bowel obstruction, electrolyte abnormality versus other Exam documented above, pertinent findings include: obviously in pain, holding an emesis bag, pacing, heart rate regular, lungs clear, abdomen tender but soft Lab Test results independently reviewed as above. Pertinent findings: No significant leukocytosis though there is a small relative left shift Independently reviewed EKG as above Imaging studies independently reviewed: Scores Used: MIPS Elements: Consultations: Treatments: Re-evaluations: Discussion: Disposition: see below, along with detailed discharge instructions that have been reviewed with patient as well as indications for ED re-evaluation and additional outpatient follow up Dr huerta: Received turned over. Reviewed patient's history and physical exam. For my own independent exam. After an extended period of time in the emergency department patient was able to tolerate oral intake and had no further vomiting. There is no indication for antibiotics. No indication for surgical consultation. Patient and family at bedside stated that they felt comfortable going home. I will refill her prescription for rectal Phenergan. Will discharge patient home with return precautions. They expressed understanding and agreement. Discharge Plan Departure Patient Disposition: Home Clinical Impression: Nausea and vomiting Instructions: Nausea and Vomiting-Adult Activity Restrictions/Additional Instructions: I do recommend that she continues to take all of her medications as directed. A prescription for Phenergan rectal suppositories was sent to [facility] per your request. Contact her primary doctor for follow-up. Return to the emergency department for new symptoms. Prescriptions: New promethazine 25 mg suppository 25 mg MI Q4-6H PRN (Reason: nausea and vomiting) Qty: 12 0RF No Action Compazine suppository 25 mg MI PRN PRN (Reason: Nausea) bupropion HCl 100 mg tablet sustained-release 12 hr 100 mg PO DAILY Qty: 90 0RF potassium chloride 20 mEq tablet extended release 40 meq PO DAILY Qty: 90 0RF spironolactone 25 mg tablet 25 mg PO DAILY Qty: 90 0RF Referrals: Joanna Storm MD [Primary Care Provider] - Stand Alone Forms: Patient Portal/API
[2023-01-20] MEDS: LORazepam 2 MG/ML INJ 1 MG IV (17:38)
[2023-01-20 18:30] LABS: Reflexed Lactate in 2 Hours Y
[2023-01-20 19:10] LABS: Lactate 2HR (Lactic Acid Rflx) 1.6 mmol/L (0.7-2.1)
== END 2023-01-20 22:26 | disposition home or self-care (01) ==
PROVIDERS: Emergency Medicine; Emergency Provider Emergency Medicine; Family Provider Internal Medicine; PCP Internal Medicine
DX: R11.2 Nausea with vomiting, unspecified (principal)
CPT/HCPCS: 36415; 74018; 80053; 82962; 83605; 85025; 96361; 96374; 96375; 99284; C9113; J1630; J2060

== ENCOUNTER 2023-02-11 20:27 | Emergency (ER) | payer OTHER, MEDICAID, SELFPAY ==
[2022-10-15 20:26] VITALS: RESP 16
[2022-10-16 01:00] VITALS: BMI 26.4
[2022-10-16 18:12] VITALS: O2SAT 100
[2022-10-16 21:07] VITALS: PULSE 63; RESP 16
[2023-02-11] VITALS (13 sets, daily range): BP systolic 147–170; BP diastolic 94–121; PULSE 44–82; RESP 22; TEMP 37; O2SAT 55–100; BMI 24.3
--- NOTE | 2023-02-11 21:53 | ED.NAVMDI ---
HPI - Nausea/Vomiting/Diarrhea General Chief complaint: Nausea/Vomiting/Diarrhea Stated complaint: cyclic vomiting Time Seen by Provider: 02/11/23 20:38 Source: patient and EMS Mode of arrival: EMS History of Present Illness HPI Narrative: Patient is a 47-year-old female with history of cyclic vomiting, abdominal migraines, prior electrolyte abnormalities, presenting today with sudden onset nausea vomiting abdominal pain. It started around 2:00 p.m.. She is unable to lay still. reports that this happens to her often when there is stress been undergoing some stress. Patient is overall unable to give history secondary to her current state. Related Data Home Medications Medication Instructions Recorded Confirmed Compazine 25 mg OR PRN PRN Nausea 10/16/22 10/16/22 Previous Rx's Medication Instructions Recorded bupropion HCl 100 mg tablet,12 hr 100 mg PO DAILY #90 ea 07/25/22 sustained-release potassium chloride 20 mEq 40 meq PO DAILY #90 tabs 07/25/22 tablet,extended release spironolactone 25 mg tablet 25 mg PO DAILY #90 tabs 07/25/22 promethazine 25 mg rectal 25 mg OR Q4-6H PRN nausea and 01/20/23 suppository vomiting #12 ea ondansetron 4 mg disintegrating 4 mg PO Q8H PRN nausea and 02/12/23 tablet vomiting #10 tabs Allergies Allergy/AdvReac Type Severity Reaction Status Date / Time promethazine [PROMETHAZINE] Allergy Mild ERYTHEMA Verified 02/11/23 20:34 TO IV SITE PT STATES ABLE TO TAKE OR latex [LATEX] Allergy Unknown Verified 02/11/23 20:34 metoclopramide AdvReac Unknown DYSTONIA Verified 02/11/23 20:34 [METOCLOPRAMIDE] Review of Systems Review of Systems ROS Unobtainable: All systems reviewed & are unremarkable except as noted in HPI and below Patient History Medical History Abscess Chronic abdominal pain Cyclic vomiting syndrome Family history of angioedema Marijuana use, continuous MRSA (methicillin resistant staph aureus) culture positive Pancreatitis Surgical History Hx of appendectomy Hx of cholecystectomy Family History Father Hypertension Mother Diabetes mellitus Daughter Angio-edema Other Colon cancer Social History household members: spouse Smoking Status: Current every day smoker alcohol intake: current Smoking Status: Current every day smoker tobacco type: vaping alcohol intake frequency: 3 or more drinks per day Alcohol type: wine Substance Use Type: former substance user, marijuana and methamphetamine Exam Initial Vital Signs Initial Vital Signs: Vital Signs Pulse Oximetry 89 L 02/11/23 20:29 GENERAL: Alert anxious flailing 47-year-old female, vomiting HEENT: Head atraumatic,EOMI, pupils reactive, face symmetric, moist mucous membranes CARDIOVASCULAR: Regular rate and rhythm without murmurs, rubs or gallops. RESPIRATORY: Breath sounds equal bilaterally, no wheezes rales or rhonchi. ABDOMEN: Soft, nontender. Normoactive bowel sounds all 4 quadrants. No guarding or rebound. EXTREMITIES: Normal range of motion, no clubbing or edema. Neurovascularly intact NEUROLOGICAL: Alert and oriented x4. SKIN: Warm, dry, no laceration, no petechiae, no rashes or lesions. Course Orders Ordered: ED Orders 02/11/23 23:30 CBC Auto Diff [Complete Blood Count AUTO DIFF] Stat CMP [Comprehensive Metabolic Panel] Stat Lactate (Lactic Acid) Stat Lipase Stat Discontinued Medications Diphenhydramine HCl (Diphenhydramine 50 Mg/Ml Vial) 50 mg IV NOW ONE Stop: 02/11/23 21:54 Last Admin: 02/11/23 22:25 Dose: 50 mg Documented By: AP Diphenhydramine HCl (Diphenhydramine 50 Mg/Ml Vial) 50 mg IM NOW ONE Stop: 02/11/23 22:17 Last Admin: 02/11/23 22:30 Dose: 50 mg Documented By: AP Haloperidol (Haloperidol 5 Mg/Ml Vial) 2 mg IV NOW ONE Stop: 02/11/23 21:54 Last Admin: 02/12/23 06:30 Dose: Not Given Documented By: AP Haloperidol (Haloperidol 5 Mg/Ml Vial) 5 mg IM NOW ONE Stop: 02/11/23 22:17 Last Admin: 02/11/23 22:31 Dose: 5 mg Documented By: AP Sodium Chloride (Normal Saline 0.9%) 1,000 mls @ 1,000 mls/hr IV BOLUS ONE Stop: 02/11/23 21:37 Last Admin: 02/12/23 06:32 Dose: Not Given Documented By: KOSTAS Lorazepam (Lorazepam 2 Mg/Ml Inj) 2 mg IV NOW ONE Stop: 02/11/23 20:39 Last Admin: 02/11/23 22:01 Dose: 2 mg Documented By: KOSTAS Lorazepam (Lorazepam 2 Mg/Ml Inj) 2 mg IM NOW ONE Stop: 02/11/23 22:17 Last Admin: 02/12/23 06:33 Dose: Not Given Documented By: KOSTAS Ondansetron HCl (Ondansetron 4 Mg Odt) 4 mg SL NOW PRN PRN Reason: Nausea And Vomiting Ondansetron HCl (Ondansetron 4 Mg/2 Ml Inj) 4 mg IV NOW PRN PRN Reason: Nausea And Vomiting Last Admin: 02/11/23 22:01 Dose: 4 mg Documented By: KOSTAS Pantoprazole Sodium (Pantoprazole 40 Mg Vial) 40 mg IV NOW ONE Stop: 02/11/23 20:40 Last Admin: 02/11/23 22:01 Dose: 40 mg Documented By: KOSTAS Vital Signs Vital signs: Vital Signs - 8 hr 02/11/23 23:00 02/11/23 23:01 02/11/23 23:08 Temperature Pulse Rate Respiratory Rate Blood Pressure 152/98 H Pulse Oximetry 89 L 55 L Oxygen Delivery Method 02/11/23 23:30 02/11/23 23:32 02/12/23 00:00 Temperature Pulse Rate 76 Respiratory Rate Blood Pressure 170/95 H 170/95 H Pulse Oximetry 95 Oxygen Delivery Method 02/12/23 00:00 02/12/23 00:30 02/12/23 06:51 Temperature Pulse Rate 80 81 80 Respiratory Rate 18 Blood Pressure 148/82 H 118/70 Pulse Oximetry 97 98 97 Oxygen Delivery Method 02/12/23 06:55 Temperature 98.9 F Pulse Rate 84 Respiratory Rate 16 Blood Pressure 115/68 Pulse Oximetry 99 Oxygen Delivery Method Room Air MDM - Nausea/Vomiting/Diarrhea Lab Data 02/11/23 23:30 02/11/23 23:30 Labs: Lab Results 02/11/23 02/11/23 02/11/23 Range/Units 23:30 23:30 23:30 WBC 10.3 (4.5-11.0) X10^3/uL RBC 4.63 (4.0-5.2) X10^6/uL Hgb 14.5 (12.0-16.0) g/dL Hct 42.2 (36-46) % MCV 91.1 (80-100) fL MCH 31.2 (26-34) PG MCHC 34.3 (30-36) % RDW 13.4 (11.6-14.8) % Plt Count 276 (150-400) X10^3/uL Neut % (Auto) 88.0 H (50-75) % Lymph % (Auto) 6.0 L (25-40) % [place] % (Auto) 5.9 (3-14) % Eos % (Auto) 0.0 L (2-4) % Baso % (Auto) 0.1 (0-2) % Neut # (Auto) 9000 H (8233-0764) /uL Lymph # (Auto) 600 L (2660-8764) /uL [place] # (Auto) 600 (0-900) /uL Eos # (Auto) 0 (0-450) /uL Baso # (Auto) 0 (0-100) /uL Sodium 143 (137-145) mmol/L Potassium 3.4 (3.4-5.1) mmol/L Chloride 98 (98-107) mmol/L Carbon Dioxide 29 (22-32) mmol/L BUN 15 (7-17) mg/dL Creatinine 0.78 (0.52-1.04) mg/dL Estimated GFR > 60 (>60) mL/min BUN/Creatinine Ratio 19.2 (6-22) Glucose 133 H (70-100) mg/dL Lactate 3.9 H (0.7-2.1) mmol/L Calcium 10.0 (8.4-10.2) mg/dL Total Bilirubin 1.2 (0.2-1.3) mg/dL AST 32 (14-36) IU/L ALT 35 H (<35) IU/L Alkaline Phosphatase 95 (38-126) U/L Total Protein 9.6 H (6.3-8.2) g/dL Albumin 5.2 H (3.5-5.0) g/dL Globulin 4.4 H (1.7-4.1) g/dL Albumin/Globulin Ratio 1.2 (1.0-2.8) Lipase 60 (23-300) U/L 02/12/23 Range/Units 01:55 WBC (4.5-11.0) X10^3/uL RBC (4.0-5.2) X10^6/uL Hgb (12.0-16.0) g/dL Hct (36-46) % MCV (80-100) fL MCH (26-34) PG MCHC (30-36) % RDW (11.6-14.8) % Plt Count (150-400) X10^3/uL Neut % (Auto) (50-75) % Lymph % (Auto) (25-40) % [place] % (Auto) (3-14) % Eos % (Auto) (2-4) % Baso % (Auto) (0-2) % Neut # (Auto) (6169-7666) /uL Lymph # (Auto) (2886-4919) /uL [place] # (Auto) (0-900) /uL Eos # (Auto) (0-450) /uL Baso # (Auto) (0-100) /uL Sodium (137-145) mmol/L Potassium (3.4-5.1) mmol/L Chloride (98-107) mmol/L Carbon Dioxide (22-32) mmol/L BUN (7-17) mg/dL Creatinine (0.52-1.04) mg/dL Estimated GFR (>60) mL/min BUN/Creatinine Ratio (6-22) Glucose (70-100) mg/dL Lactate 1.6 (0.7-2.1) mmol/L Calcium (8.4-10.2) mg/dL Total Bilirubin (0.2-1.3) mg/dL AST (14-36) IU/L ALT (<35) IU/L Alkaline Phosphatase (38-126) U/L Total Protein (6.3-8.2) g/dL Albumin (3.5-5.0) g/dL Globulin (1.7-4.1) g/dL Albumin/Globulin Ratio (1.0-2.8) Lipase (23-300) U/L [facility] Narrative Medical decision making narrative: Patient 47-year-old female with history of cyclic vomiting presenting today with abdominal pain and vomiting. She was difficult to get an IV on in fact it blew. Lab was able to draw blood. No significant electrolyte abnormality potassium is 3.4 creatinine 0.78 no significant leukocytosis anemia. Her 1st lactate was 3.9. I actually did not give her any fluids I gait her Haldol Ativan and Benadryl IM she was able to calm down in her repeat lactate was 1.6. She is not significantly dehydrated abdomen is soft. This is similar to previous presentations. She is tolerating a small amount of fluid. This time I do not see need for any need for imaging. Discharge Plan Departure Patient Disposition: Home Clinical Impression: Cyclic vomiting syndrome Instructions: Nausea and Vomiting-Adult Activity Restrictions/Additional Instructions: *You have been diagnosed with cyclic vomiting, abdominal migraine *What to do: Please increase fluids as tolerated. I hope you go home and get some sleep *Continue to take medications as directed Zofran 4 mg every 8 hours if needed for nausea or vomiting--> [facility] [place] *Follow up with your primary care provider in 2-3 days or call [phone] *Return to ER if you should have persistent vomiting increased abdominal pain or any new, worsening or concerning symptoms Prescriptions: New ondansetron 4 mg tablet,disintegrating 4 mg PO Q8H PRN (Reason: nausea and vomiting) Qty: 10 0RF No Action Compazine suppository 25 mg OR PRN PRN (Reason: Nausea) bupropion HCl 100 mg tablet sustained-release 12 hr 100 mg PO DAILY Qty: 90 0RF potassium chloride 20 mEq tablet extended release 40 meq PO DAILY Qty: 90 0RF spironolactone 25 mg tablet 25 mg PO DAILY Qty: 90 0RF promethazine 25 mg suppository 25 mg OR Q4-6H PRN (Reason: nausea and vomiting) Qty: 12 0RF Referrals: Joanna Storm MD [Primary Care Provider] - Stand Alone Forms: Patient Portal/API
[2023-02-11] MEDS: LORazepam 2 MG/ML INJ IV (22:01)
[2023-02-11] MEDS: PANTOPRAZOLE 40 MG VIAL IV (22:01)
[2023-02-11] MEDS: ONDANSETRON 4 MG/2 ML INJ IV (22:01)
[2023-02-11] MEDS: diphenhydrAMINE 50 MG/ML VIAL IV (22:25)
[2023-02-11] MEDS: diphenhydrAMINE 50 MG/ML VIAL IM (22:30)
[2023-02-11] MEDS: HALOPERIDOL 5 MG/ML VIAL IM (22:31)
[2023-02-11 23:41] LABS: Add Manual Diff / Slide Review NO; Basophils Absolute Auto 0 /uL (0-100); Basophils Percent Auto 0.1 % (0-2); Eosinophils Absolute Auto 0 /uL (0-450); Hematocrit 42.2 % (36-46); Hemoglobin 14.5 g/dL (12.0-16.0); Lymphocytes Absolute Auto 600 /uL (1100-4500); Mean Corpuscular HGB Conc 34.3 % (30-36); Mean Corpuscular Hemoglobin 31.2 PG (26-34); Mean Corpuscular Volume 91.1 fL (80-100); Monocytes Absolute Auto 600 /uL (0-900); Monocytes Percent Auto 5.9 % (3-14); Neutrophils Absolute Auto 9000 /uL (1500-7000); Platelet Count 276 X10^3/uL (150-400); Red Blood Cell Count 4.63 X10^6/uL (4.0-5.2); Red Cell Distribution Width 13.4 % (11.6-14.8); White Blood Cell Count 10.3 X10^3/uL (4.5-11.0)
[2023-02-11 23:54] LABS: Alanine Aminotransferase 35 IU/L (<35); Albumin 5.2 g/dL (3.5-5.0); Albumin Globulin Ratio 1.2 (1.0-2.8); Alkaline Phosphatase 95 U/L (38-126); Aspartate Aminotransferase 32 IU/L (14-36); BUN Creatinine Ratio 19.2 (6-22); Bilirubin Total 1.2 mg/dL (0.2-1.3); Blood Urea Nitrogen 15 mg/dL (7-17); Carbon Dioxide 29 mmol/L (22-32); Chloride 98 mmol/L (98-107); Estimated Glomerular Filt Rate > 60 mL/min (>60); Globulin 4.4 g/dL (1.7-4.1); Glucose 133 mg/dL (70-100); HEMOLYSIS 15 (0-50); Lactate (Lactic Acid) 3.9 mmol/L (0.7-2.1); Lipase 60 U/L (23-300); Potassium 3.4 mmol/L (3.4-5.1); Sodium 143 mmol/L (137-145); Total Protein 9.6 g/dL (6.3-8.2)
[2023-02-12] VITALS: BP 170/95; PULSE 80; O2SAT 97
[2023-02-12 00:30] VITALS: BP 148/82; PULSE 81; O2SAT 98
[2023-02-12 01:36] LABS: Reflexed Lactate in 2 Hours Y
[2023-02-12 02:13] LABS: Lactate 2HR (Lactic Acid Rflx) 1.6 mmol/L (0.7-2.1)
[2023-02-12 06:51] VITALS: BP 118/70; PULSE 80; RESP 18; O2SAT 97
[2023-02-12 06:55] VITALS: BP 115/68; PULSE 84; RESP 16; TEMP 37.2; O2SAT 99
== END 2023-02-12 06:57 | disposition home or self-care (01) ==
PROVIDERS: Emergency Provider Emergency Medicine; Family Provider Internal Medicine; PCP Internal Medicine
DX: R11.15 Cyclical vomiting syndrome unrelated to migraine (principal); R10.9 Unspecified abdominal pain
CPT/HCPCS: 36415; 80053; 83605; 83690; 85025; 96372; 96374; 96375; 99284; C9113; J1200; J1630; J2060; J2405

== ENCOUNTER 2023-06-15 08:01 | Emergency (ER) | payer OTHER, MEDICAID, SELFPAY ==
[2022-10-15 20:26] VITALS: RESP 16
[2022-10-16 01:00] VITALS: BMI 26.4
[2022-10-16 18:12] VITALS: O2SAT 100
[2022-10-16 21:07] VITALS: PULSE 63; RESP 16
[2023-06-15 08:26] VITALS: BP 116/80; PULSE 83; RESP 18; TEMP 36.6; O2SAT 97; BMI 22.9
--- NOTE | 2023-06-15 09:19 | ED.SKABFB ---
HPI - Skin/Abscess/Foreign Bdy General Chief complaint: Skin/Abscess/Foreign Body Stated complaint: rash on butt and anus meds not working Time Seen by Provider: 06/15/23 08:56 Source: patient Mode of arrival: Ambulatory Limitations: no limitations History of Present Illness HPI narrative: Patient is a 47-year-old female history of cyclic vomiting presenting today with buttock pain. She says over the last 2 days she is had increasing pain she is unable to sit. She reports that she has a recurrent rash that nobody can figure out she is had punch biopsy she is been on antifungals and antibiotics it does not seem to go away however she is never had pain like this. No fever or chills. Related Data Home Medications Medication Instructions Recorded Confirmed Compazine 25 mg [place] PRN PRN Nausea 10/16/22 10/16/22 Previous Rx's Medication Instructions Recorded bupropion HCl 100 mg tablet,12 hr 100 mg PO DAILY #90 ea 07/25/22 sustained-release potassium chloride 20 mEq 40 meq PO DAILY #90 tabs 07/25/22 tablet,extended release spironolactone 25 mg tablet 25 mg PO DAILY #90 tabs 07/25/22 promethazine 25 mg rectal 25 mg [place] Q4-6H PRN nausea and 01/20/23 suppository vomiting #12 ea ondansetron 4 mg disintegrating 4 mg PO Q8H PRN nausea and 02/12/23 tablet vomiting #10 tabs sulfamethoxazole 800 1 tab PO BID 7 days #14 tabs 06/15/23 mg-trimethoprim 160 mg tablet (Bactrim DS) Allergies Allergy/AdvReac Type Severity Reaction Status Date / Time latex [LATEX] Allergy Unknown Verified 06/15/23 08:26 metoclopramide AdvReac Unknown DYSTONIA Verified 06/15/23 08:26 [METOCLOPRAMIDE] Review of Systems Review of Systems ROS Unobtainable: All systems reviewed & are unremarkable except as noted in HPI and below Patient History Medical History Abscess Chronic abdominal pain Cyclic vomiting syndrome Family history of angioedema Marijuana use, continuous MRSA (methicillin resistant staph aureus) culture positive Pancreatitis Surgical History Hx of appendectomy Hx of cholecystectomy Family History Father Hypertension Mother Diabetes mellitus Daughter Angio-edema Other Colon cancer Social History household members: spouse Smoking Status: Current every day smoker alcohol intake: current Smoking Status: Current every day smoker tobacco type: vaping alcohol intake frequency: 3 or more drinks per day Alcohol type: wine Substance Use Type: former substance user and marijuana Exam Initial Vital Signs Initial Vital Signs: Vital Signs Temperature 97.8 F 06/15/23 08:26 Pulse Rate 83 06/15/23 08:26 Respiratory Rate 18 06/15/23 08:26 Blood Pressure 116/80 06/15/23 08:26 Pulse Oximetry 97 06/15/23 08:26 Oxygen Delivery Method Room Air 06/15/23 08:26 GENERAL: Tearful 47-year-old female status CARDIOVASCULAR: peripheral pulses in tact, cap refill <2 sec RESPIRATORY: No respiratory distress, speaks in full sentences without difficulty EXTREMITIES: Normal range of motion, no clubbing or edema. Neurovascularly intact NEUROLOGICAL: Cranial nerves II through XII grossly intact. Normal gait and speech. SKIN: Right medial buttock abscess about 2 cm x 2 cm fluctuant tender to touch mildly erythematous. Not near anus. Procedures Abscess I/D I&D #1: Site: kathy-rectal (buttock) Side (if applicable): right Local Anesthetic: lidocaine 1% Amount of anesthesia used (mL): 3 Technique: incised with #11 blade Amount of fluid expressed (mL): 4 Irrigation: No Packing used?: none Course Orders Ordered: ED Orders 06/15/23 09:43 Wound Culture and Gram Stain Stat Vital Signs Vital signs: Vital Signs - 8 hr 06/15/23 08:26 Temperature 97.8 F Pulse Rate 83 Respiratory Rate 18 Blood Pressure 116/80 Pulse Oximetry 97 Oxygen Delivery Method Room Air MDM - Skin/Abscess/Foreign Bdy MDM Narrative Medical decision making narrative: 47-year-old female presenting today with right buttock pain. There is obvious fluctuation minimal erythema. I and D was successful. She is put on antibiotics Bactrim. This is likely the cause of her pain today. She is chronic ongoing rash which is just dry scaly skin which is unlikely causing her symptoms today. Patient's vitals are stable no evidence of sepsis no need for further workup or evaluation. Culture has been taken and sent. Discharge Plan Departure Patient Disposition: Home Clinical Impression: Abscess Instructions: DI for Incision and Drainage of a Skin Abscess, DI for Skin Abscess Activity Restrictions/Additional Instructions: *You have been diagnosed with skin abscess, incision and drainage *What to do: At this time warm compresses Sitz baths. *Continue to take medications as directed Bactrim 1 tablet twice a day for 7 days __> [facility] *Follow up with your primary care provider in 2-3 days or call [phone] *Return to ER if you should have increasing redness pain fever chills or any new, worsening or concerning symptoms Prescriptions: New sulfamethoxazole-trimethoprim [Bactrim DS] 800-160 mg tablet 1 tab PO BID 7 Days Qty: 14 0RF No Action Compazine suppository 25 mg [place] PRN PRN (Reason: Nausea) ondansetron 4 mg tablet,disintegrating 4 mg PO Q8H PRN (Reason: nausea and vomiting) Qty: 10 0RF bupropion HCl 100 mg tablet sustained-release 12 hr 100 mg PO DAILY Qty: 90 0RF potassium chloride 20 mEq tablet extended release 40 meq PO DAILY Qty: 90 0RF spironolactone 25 mg tablet 25 mg PO DAILY Qty: 90 0RF promethazine 25 mg suppository 25 mg [place] Q4-6H PRN (Reason: nausea and vomiting) Qty: 12 0RF Referrals: Joanna Storm MD [Primary Care Provider] - Stand Alone Forms: Patient Portal/API
== END 2023-06-15 09:53 | disposition home or self-care (01) ==
PROVIDERS: Emergency Provider Emergency Medicine; Family Provider Internal Medicine; PCP Internal Medicine
DX: L02.31 Cutaneous abscess of buttock (principal)
CPT/HCPCS: 10060; 87070; 87077; 87147; 87186; 87205; 99281; 99283

== ENCOUNTER 2023-07-08 10:27 | Inpatient (IN) | payer OTHER, MEDICAID, SELFPAY ==
[2022-10-15 20:26] VITALS: RESP 16
[2022-10-16 01:00] VITALS: BMI 26.4
[2022-10-16 18:12] VITALS: O2SAT 100
[2022-10-16 21:07] VITALS: PULSE 63; RESP 16
[2023-07-08] VITALS (59 sets, daily range): BP systolic 155–227; BP diastolic 89–114; PULSE 61–92; RESP 16–35; TEMP 36.3–37.6; O2SAT 89–100; BMI 22.9
[2023-07-08] MEDS: ONDANSETRON 4 MG/2 ML INJ (10:42)
--- NOTE | 2023-07-08 11:10 | PC.NURSE ---
Placed pt on 1L O2, pt desat to 87-88% when resting with eyes closed. 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
[2023-07-08 11:34] LABS: Add Manual Diff / Slide Review NO; Basophils Absolute Auto 0 /uL (0-100); Basophils Percent Auto 0.2 % (0-2); Eosinophils Absolute Auto 0 /uL (0-450); Eosinophils Percent Auto 0.1 % (2-4); Hematocrit 36.8 % (36-46); Hemoglobin 12.6 g/dL (12.0-16.0); Lymphocytes Absolute Auto 700 /uL (1100-4500); Mean Corpuscular HGB Conc 34.3 % (30-36); Mean Corpuscular Volume 93.1 fL (80-100); Monocytes Absolute Auto 200 /uL (0-900); Monocytes Percent Auto 2.7 % (3-14); Neutrophils Absolute Auto 8200 /uL (1500-7000); Platelet Count 265 X10^3/uL (150-400); Red Blood Cell Count 3.96 X10^6/uL (4.0-5.2); Red Cell Distribution Width 13.4 % (11.6-14.8); White Blood Cell Count 9.2 X10^3/uL (4.5-11.0)
[2023-07-08 11:48] LABS: Alanine Aminotransferase 20 IU/L (<35); Albumin 4.8 g/dL (3.5-5.0); Albumin Globulin Ratio 1.1 (1.0-2.8); Alkaline Phosphatase 107 U/L (38-126); Aspartate Aminotransferase 34 IU/L (14-36); BUN Creatinine Ratio 15.9 (6-22); Bilirubin Total 0.9 mg/dL (0.2-1.3); Blood Urea Nitrogen 10 mg/dL (7-17); Calcium 9.7 mg/dL (8.4-10.2); Carbon Dioxide 24 mmol/L (22-32); Chloride 102 mmol/L (98-107); Estimated Glomerular Filt Rate > 60 mL/min (>60); Globulin 4.2 g/dL (1.7-4.1); Glucose 154 mg/dL (70-100); HEMOLYSIS < 15 (0-50); Lipase 259 U/L (23-300); Potassium 2.9 mmol/L (3.4-5.1); Sodium 140 mmol/L (137-145)
[2023-07-08] MEDS: SODIUM CHLORIDE 0.9% 1,000 ML 1000 ML IV ×2 (12:00→14:02)
[2023-07-08] MEDS: LORazepam 2 MG/ML INJ 1 MG IV (12:10)
[2023-07-08] MEDS: POTASSIUM CHLORIDE IN WATER 10 MEQ/100 ML PIGGYBACK 100 MEQ IV ×8 (12:15→23:45)
--- NOTE | 2023-07-08 12:18 | ED_ITS ---
HPI - Abdominal Pain General Chief Complaint: Abdominal Pain Stated Complaint: cyclic vomitting Time Seen by Provider: 07/08/23 12:01 Source: patient and EMS Mode of arrival: EMS Limitations: no limitations History of Present Illness HPI narrative: 7-year-old female with history of cyclic vomiting, abdominal migraines and prior electrolyte abnormalities presents for nausea vomiting and diarrhea. Patient states she would onset symptoms about 0330 this morning. She states felt a little ill prior to. She denies fevers. Denies chest pain or shortness of breath. She is had persistent nausea and vomiting throughout the morning and then today. She is reports 4-5 episodes of diarrhea. No black or bloody stools reported. She denies urinary issues no dysuria urgency or frequency but has urinated on herself your in the department. Patient has had issues with cyclic vomiting in the past. She states she hurts in her lower abdomen in the suprapubic area. She does complain of pain all over. She denies any other symptoms currently. She did have a small abscess I and at the buttock area on her last visit. She states that it did improve. She feels like there is another area that is starting to occur. Related Data Previous Rx's Medication Instructions Recorded promethazine 25 mg rectal 25 mg OK Q4-6H PRN nausea and 01/20/23 suppository vomiting #12 ea ondansetron 4 mg disintegrating 4 mg PO Q8H PRN nausea and 02/12/23 tablet vomiting #10 tabs Allergies Allergy/AdvReac Type Severity Reaction Status Date / Time latex [LATEX] Allergy Unknown Verified 07/08/23 10:38 metoclopramide AdvReac Unknown DYSTONIA Verified 07/08/23 10:38 [METOCLOPRAMIDE] Review of Systems Review of Systems ROS Unobtainable: All systems reviewed & are unremarkable except as noted in HPI and below Patient History Medical History Abscess Chronic abdominal pain Cyclic vomiting syndrome Family history of angioedema Marijuana use, continuous MRSA (methicillin resistant staph aureus) culture positive Pancreatitis Surgical History Hx of appendectomy Hx of cholecystectomy Family History Father Hypertension Mother Diabetes mellitus Daughter Angio-edema Other Colon cancer Social History household members: spouse Smoking Status: Current every day smoker alcohol intake: current Smoking Status: Current every day smoker tobacco type: vaping alcohol intake frequency: 3 or more drinks per day Alcohol type: wine Substance Use Type: former substance user and marijuana Exam Narrative Exam Narrative: GENERAL: Alert and oriented x three, female in moderate distress. Patient had just received medications and was sleeping, when awakened becomes quite uncomfortable and started dry heaving. HEENT: Head normocephalic, atraumatic, EOMI, pupils reactive, face symmetric, moist mucous membranes NECK: Supple, full range of motion CARDIOVASCULAR: Regular rate and rhythm without murmurs, rubs or gallops. RESPIRATORY: Breath sounds equal bilaterally, no wheezes rales or rhonchi. ABDOMEN: Soft, generalized tenderness. Nondistended. Normoactive bowel sounds all 4 quadrants. No guarding or rebound, rigidity, no mass : No CVA tenderness EXTREMITIES: Normal range of motion, no clubbing or edema. Neurovascularly intact NEUROLOGICAL: Cranial nerves II through XII grossly intact. Moving all extremities SKIN: Warm, dry, no petechiae, no rashes or lesions. Patient has a area where appears to be healed abscess, patient did point to an additional area at the right gluteal crease proximally a 0.5 cm in size is not tender there is some slight swelling, there is no fluctuance or erythema, no induration. Initial Vital Signs Initial Vital Signs: Vital Signs Temperature 97.7 F 07/08/23 10:35 Pulse Rate 77 07/08/23 10:35 Respiratory Rate 20 07/08/23 10:35 Blood Pressure 180/106 H 07/08/23 10:35 Pulse Oximetry 100 07/08/23 10:35 Oxygen Delivery Method Room Air 07/08/23 10:35 Course Orders Ordered: ED Orders 07/08/23 11:17 Complete Blood Count AUTO DIFF Stat Comprehensive Metabolic Panel Stat Lactate (Lactic Acid) Stat Lipase Stat Magnesium Stat 07/08/23 11:27 Urinalysis and Microscopic Stat 07/08/23 11:29 Respiratory Panel (Film Array) Stat 07/08/23 12:23 CT abdomen pelvis w con Stat EKG-12 Lead Stat 07/08/23 14:00 Education, smoking cessation ONGOING Hydrocodone Bitart/Acetaminophen (Hydrocodone/Acet 5/325 Tablet) 1 tab PO PA CUNOW PRN PRN Reason: Mild or moderate pain Fentanyl (Fentanyl 100 Mcg/2 Ml Inj) 0 mcg IV Q5M PRN PRN Reason: Pain, Moderate (4-6) Hydromorphone HCl (Hydromorphone 0.5 Mg Inj) 0.5 mg IV Q2H PRN PRN Reason: Pain, Severe (7-10) Hydromorphone HCl (Hydromorphone 2 Mg Inj) 0 mg IV Q5M PRN PRN Reason: Pain, Moderate (4-6) Sodium Chloride (Normal Saline 0.9%) 1,000 mls @ 200 mls/hr IV CONT LINDA Last Admin: 07/08/23 18:54 Dose: 200 mls/hr Documented By: JADEN Lactated Ringer's (Lactated Ringers) 1,000 mls @ 125 mls/hr IV NOW ONE Stop: 07/09/23 00:47 Last Admin: 07/08/23 16:48 Dose: 125 mls/hr Documented By: PHILL POTASSIUM CHLORIDE IN WATER (Potassium Cl 10 Meq/100 Ml Megan) 10 meq in 100 mls @ 100 mls/hr IV Q1H LINDA Stop: 07/08/23 22:59 Labetalol HCl (Labetalol 20 Mg/4 Ml Syringe) 10 mg IV Q10MIN PRN PRN Reason: for SBP greater than 160 mmHg Last Admin: 07/08/23 18:37 Dose: 10 mg Documented By: ERLIN Lorazepam (Lorazepam 2 Mg/Ml Inj) 0.5 mg IV NOW PRN PRN Reason: Anxiety Naloxone HCl (Naloxone 0.4 Mg/Ml Vial) 0.2 mg IV Q2MIN PRN PRN Reason: Opiate Reversal Ondansetron HCl (Ondansetron 4 Mg Odt) 4 mg PO NOW PRN PRN Reason: Nausea And Vomiting Ondansetron HCl (Ondansetron 4 Mg/2 Ml Inj) 4 mg IV NOW PRN PRN Reason: Nausea And Vomiting Ondansetron HCl (Ondansetron 4 Mg/2 Ml Inj) 4 mg IV NOW PRN PRN Reason: Nausea And Vomiting Oxycodone HCl (Oxycodone Ir 5 Mg Tablet) 5 mg PO PACUNOW PRN PRN Reason: Mild or moderate pain Oxycodone/Acetaminophen (Oxycodone/Acetaminophen 5/325 Tablet) 1 tab PO PACUNOW PRN PRN Reason: Mild or Moderate Pain Discontinued Medications Bupivacaine HCl (Bupivacaine 0.25% (Pf) Vial) 30 ml INJ NOW ONE Stop: 07/08/23 17:41 Last Admin: 07/08/23 17:44 Dose: 30 ml Documented By: JOSHUA Haloperidol (Haloperidol 5 Mg/Ml Vial) 5 mg IV NOW ONE Stop: 07/08/23 12:24 Last Admin: 07/08/23 13:00 Dose: 5 mg Documented By: ALEX Sodium Chloride (Normal Saline 0.9%) 1,000 mls @ 1,000 mls/hr IV BOLUS ONE Stop: 07/08/23 12:11 Last Infusion: 07/08/23 14:03 Dose: 0 mls/hr Documented By: Admin: 07/08/23 12:00 Dose: 1,000 mls/hr Documented By: ALEX Sodium Chloride (Normal Saline 0.9%) 1,000 mls @ 1,000 mls/hr IV BOLUS ONE Stop: 07/08/23 13:02 Last Infusion: 07/08/23 14:57 Dose: 0 mls/hr Documented By: Admin: 07/08/23 14:02 Dose: 1,000 mls/hr Documented By: ALEX POTASSIUM CHLORIDE IN WATER (Potassium Cl 10 Meq/100 Ml Megan) 10 meq in 100 mls @ 100 mls/hr IV Q1H LINDA Stop: 07/08/23 20:14 Last Admin: 07/08/23 15:41 Dose: 100 mls/hr Documented By: Infusion: 07/08/23 15:41 Dose: 100 mls/hr Documented By: Admin: 07/08/23 14:57 Dose: 100 mls/hr Documented By: Infusion: 07/08/23 14:57 Dose: 100 mls/hr Documented By: Admin: 07/08/23 14:02 Dose: 100 mls/hr Documented By: Infusion: 07/08/23 13:15 Dose: 100 mls/hr Documented By: Admin: 07/08/23 12:15 Dose: 100 mls/hr Documented By: ALEX Piperacillin Sod/Tazobactam (Sod 4.5 gm/ Sodium Chloride) 100 mls @ 200 mls/hr IV NOW ONE Stop: 07/08/23 16:43 Last Infusion: 07/08/23 17:20 Dose: 0 mls/hr Documented By: Admin: 07/08/23 17:15 Dose: 200 mls/hr Documented By: ELLEN Lorazepam (Lorazepam 2 Mg/Ml Inj) 1 mg IV NOW ONE Stop: 07/08/23 12:05 Last Admin: 07/08/23 12:10 Dose: 1 mg Documented By: ALEX Naloxone HCl (Naloxone 0.4 Mg/Ml Vial) 0.2 mg IV Q2MIN PRN PRN Reason: Opiate Reversal Vital Signs Vital signs: Vital Signs - 8 hr 07/08/23 11:00 07/08/23 11:00 07/08/23 11:02 Pulse Rate 76 Blood Pressure 184/101 H 182/106 H Pulse Oximetry 100 Oxygen Delivery Method Nasal Cannula Oxygen Flow Rate 1 07/08/23 11:02 07/08/23 11:10 07/08/23 11:10 Pulse Rate 67 72 Blood Pressure 168/100 H Pulse Oximetry 99 100 Oxygen Delivery Method Nasal Cannula Oxygen Flow Rate 1 07/08/23 11:21 07/08/23 11:21 07/08/23 11:22 Pulse Rate 75 Blood Pressure 165/90 H 165/94 H Pulse Oximetry 100 Oxygen Delivery Method Oxygen Flow Rate 07/08/23 11:22 07/08/23 11:30 07/08/23 11:30 Pulse Rate 72 69 Blood Pressure 166/97 H Pulse Oximetry 100 100 Oxygen Delivery Method Oxygen Flow Rate 07/08/23 11:40 07/08/23 11:40 07/08/23 11:50 Pulse Rate 64 61 Blood Pressure 167/96 H Pulse Oximetry 100 100 Oxygen Delivery Method Oxygen Flow Rate 07/08/23 11:50 07/08/23 12:00 07/08/23 12:00 Pulse Rate 76 Blood Pressure 169/101 H 180/105 H Pulse Oximetry 100 Oxygen Delivery Method Oxygen Flow Rate 07/08/23 12:42 07/08/23 12:43 07/08/23 12:43 Pulse Rate 68 65 Blood Pressure 204/94 H Pulse Oximetry 97 91 Oxygen Delivery Method Oxygen Flow Rate 07/08/23 12:51 07/08/23 12:51 07/08/23 13:00 Pulse Rate 70 Blood Pressure 225/105 H 227/106 H Pulse Oximetry 100 Oxygen Delivery Method Oxygen Flow Rate 07/08/23 13:00 07/08/23 13:10 07/08/23 13:10 Pulse Rate 67 71 Blood Pressure 215/104 H Pulse Oximetry 100 99 Oxygen Delivery Method Nasal Cannula Oxygen Flow Rate 2 07/08/23 13:13 07/08/23 13:13 07/08/23 13:16 Pulse Rate 73 Blood Pressure 206/98 H 187/100 H Pulse Oximetry 100 Oxygen Delivery Method Nasal Cannula Oxygen Flow Rate 2 07/08/23 13:16 07/08/23 13:20 07/08/23 13:20 Pulse Rate 73 74 Blood Pressure 184/101 H Pulse Oximetry 100 100 Oxygen Delivery Method Nasal Cannula Oxygen Flow Rate 2 07/08/23 13:25 07/08/23 13:25 07/08/23 13:30 Pulse Rate 76 Blood Pressure 195/103 H 191/105 H Pulse Oximetry 100 Oxygen Delivery Method Oxygen Flow Rate 07/08/23 13:30 07/08/23 13:35 07/08/23 13:35 Pulse Rate 75 78 Blood Pressure 180/97 H Pulse Oximetry 100 100 Oxygen Delivery Method Nasal Cannula Oxygen Flow Rate 2 07/08/23 13:40 07/08/23 13:40 07/08/23 13:40 Pulse Rate Blood Pressure 182/105 H 182/105 H 182/105 H Pulse Oximetry Oxygen Delivery Method Oxygen Flow Rate 07/08/23 13:40 07/08/23 13:40 07/08/23 13:45 Pulse Rate 76 78 Blood Pressure 182/105 H Pulse Oximetry 100 100 Oxygen Delivery Method Nasal Cannula Nasal Cannula Oxygen Flow Rate 2 2 07/08/23 13:45 07/08/23 13:50 07/08/23 13:50 Pulse Rate 78 Blood Pressure 187/111 H 178/99 H Pulse Oximetry 100 Oxygen Delivery Method Oxygen Flow Rate 07/08/23 13:55 07/08/23 13:55 Pulse Rate 79 Blood Pressure 186/104 H Pulse Oximetry 100 Oxygen Delivery Method Nasal Cannula Oxygen Flow Rate 2 MDM - Abdominal Pain Lab Data 07/08/23 11:17 07/08/23 16:15 Labs: Lab Results 07/08/23 07/08/23 07/08/23 Range/Units 11:17 11:17 11:17 WBC 9.2 (4.5-11.0) X10^3/uL RBC 3.96 L (4.0-5.2) X10^6/uL Hgb 12.6 (12.0-16.0) g/dL Hct 36.8 (36-46) % MCV 93.1 (80-100) fL MCH 32.0 (26-34) PG MCHC 34.3 (30-36) % RDW 13.4 (11.6-14.8) % Plt Count 265 (150-400) X10^3/uL Neut % (Auto) 89.0 H (50-75) % Lymph % (Auto) 8.0 L (25-40) % [place] % (Auto) 2.7 L (3-14) % Eos % (Auto) 0.1 L (2-4) % Baso % (Auto) 0.2 (0-2) % Neut # (Auto) 8200 H (4121-3420) /uL Lymph # (Auto) 700 L (6798-4279) /uL [place] # (Auto) 200 (0-900) /uL Eos # (Auto) 0 (0-450) /uL Baso # (Auto) 0 (0-100) /uL Sodium 140 (137-145) mmol/L Potassium 2.9 L (3.4-5.1) mmol/L Chloride 102 (98-107) mmol/L Carbon Dioxide 24 (22-32) mmol/L BUN 10 (7-17) mg/dL Creatinine 0.63 (0.52-1.04) mg/dL Estimated GFR > 60 (>60) mL/min BUN/Creatinine Ratio 15.9 (6-22) Glucose 154 H (70-100) mg/dL Lactate (0.7-2.1) mmol/L Calcium 9.7 (8.4-10.2) mg/dL Magnesium 1.8 (1.6-2.3) mg/dL Total Bilirubin 0.9 (0.2-1.3) mg/dL AST 34 (14-36) IU/L ALT 20 (<35) IU/L Alkaline Phosphatase 107 (38-126) U/L Total Protein 9.0 H (6.3-8.2) g/dL Albumin 4.8 (3.5-5.0) g/dL Globulin 4.2 H (1.7-4.1) g/dL Albumin/Globulin Ratio 1.1 (1.0-2.8) Lipase 259 (23-300) U/L Urine Color Urine Appearance Urine pH (4.5-8.0) Ur Specific [place] (1.000-1.035) Urine Protein (Negative) Urine Glucose (UA) (Negative) g/dL Urine Ketones (NEGATIVE) Urine Occult Blood (Negative) Urine Nitrate (Negative) Urine Bilirubin (NEGATIVE) Urine Urobilinogen (0.2) E.U./dL Ur Leukocyte Esterase (NEGATIVE) Urine RBC (0-5/HPF) Urine WBC (0-5/HPF) Ur Squamous Epith Cells (0-5/HPF) Urine Bacteria (None) Ur Culture Indicated? Urine Test (Negative) Chlamy pneumoniae PCR (Not Detect) Adenovirus (PCR) (Not Detect) B. pertussis DNA (PCR) (Not Detecte) B.parapertussis DNA PCR (Not Detecte) Coronavirus OC43 (PCR) (Not Detect) Coronavirus HKU1 (PCR) (Not Detect) Coronavirus 229E (PCR) (Not Detect) SARS-CoV-2 (PCR) (Not Detecte) Coronavirus NL63 (PCR) (Not Detect) Human Metapneumovir PCR (Not Detect) Influenza Type A (PCR) (Not Detect) Influenza Type B (PCR) (Not Detect) M. pneumoniae (PCR) (Not Detect) Parainfluenza 1 (PCR) (Not Detect) Parainfluenza 2 (PCR) (Not Detect) Parainfluenza 3 (PCR) (Not Detect) Parainfluenza 4 (PCR) (Not Detect) RSV (PCR) (Not Detect) Entero/Rhino (PCR) (Not Detect) 07/08/23 07/08/23 07/08/23 Range/Units 11:17 11:27 11:29 WBC (4.5-11.0) X10^3/uL RBC (4.0-5.2) X10^6/uL Hgb (12.0-16.0) g/dL Hct (36-46) % MCV (80-100) fL MCH (26-34) PG MCHC (30-36) % RDW (11.6-14.8) % Plt Count (150-400) X10^3/uL Neut % (Auto) (50-75) % Lymph % (Auto) (25-40) % [place] % (Auto) (3-14) % Eos % (Auto) (2-4) % Baso % (Auto) (0-2) % Neut # (Auto) (9204-0686) /uL Lymph # (Auto) (9371-3472) /uL [place] # (Auto) (0-900) /uL Eos # (Auto) (0-450) /uL Baso # (Auto) (0-100) /uL Sodium (137-145) mmol/L Potassium (3.4-5.1) mmol/L Chloride (98-107) mmol/L Carbon Dioxide (22-32) mmol/L BUN (7-17) mg/dL Creatinine (0.52-1.04) mg/dL Estimated GFR (>60) mL/min BUN/Creatinine Ratio (6-22) Glucose (70-100) mg/dL Lactate 3.0 H (0.7-2.1) mmol/L Calcium (8.4-10.2) mg/dL Magnesium (1.6-2.3) mg/dL Total Bilirubin (0.2-1.3) mg/dL AST (14-36) IU/L ALT (<35) IU/L Alkaline Phosphatase (38-126) U/L Total Protein (6.3-8.2) g/dL Albumin (3.5-5.0) g/dL Globulin (1.7-4.1) g/dL Albumin/Globulin Ratio (1.0-2.8) Lipase (23-300) U/L Urine Color Yellow Urine Appearance Clear Urine pH 7.5 (4.5-8.0) Ur Specific [place] 1.015 (1.000-1.035) Urine Protein 2+ H (Negative) Urine Glucose (UA) Negative (Negative) g/dL Urine Ketones 1+ H (NEGATIVE) Urine Occult Blood Trace-intact (Negative) Urine Nitrate Negative (Negative) Urine Bilirubin Negative (NEGATIVE) Urine Urobilinogen 1.0 (0.2) E.U./dL Ur Leukocyte Esterase Negative (NEGATIVE) Urine RBC 0-1/hpf (0-5/HPF) Urine WBC 1-5/hpf (0-5/HPF) Ur Squamous Epith Cells 1-5 /hpf (0-5/HPF) Urine Bacteria None seen (None) Ur Culture Indicated? Cult not indicated Urine Test (Negative) Chlamy pneumoniae PCR Not detected (Not Detect) Adenovirus (PCR) Not detected (Not Detect) B. pertussis DNA (PCR) Not detected (Not Detecte) B.parapertussis DNA PCR Not detected (Not Detecte) Coronavirus OC43 (PCR) Not detected (Not Detect) Coronavirus HKU1 (PCR) Not detected (Not Detect) Coronavirus 229E (PCR) Not detected (Not Detect) SARS-CoV-2 (PCR) Not detected (Not Detecte) Coronavirus NL63 (PCR) Not detected (Not Detect) Human Metapneumovir PCR Not detected (Not Detect) Influenza Type A (PCR) Not detected (Not Detect) Influenza Type B (PCR) Not detected (Not Detect) M. pneumoniae (PCR) Not detected (Not Detect) Parainfluenza 1 (PCR) Not detected (Not Detect) Parainfluenza 2 (PCR) Not detected (Not Detect) Parainfluenza 3 (PCR) Not detected (Not Detect) Parainfluenza 4 (PCR) Not detected (Not Detect) RSV (PCR) Not detected (Not Detect) Entero/Rhino (PCR) Not detected (Not Detect) 07/08/23 Range/Units 13:00 WBC (4.5-11.0) X10^3/uL RBC (4.0-5.2) X10^6/uL Hgb (12.0-16.0) g/dL Hct (36-46) % MCV (80-100) fL MCH (26-34) PG MCHC (30-36) % RDW (11.6-14.8) % Plt Count (150-400) X10^3/uL Neut % (Auto) (50-75) % Lymph % (Auto) (25-40) % [place] % (Auto) (3-14) % Eos % (Auto) (2-4) % Baso % (Auto) (0-2) % Neut # (Auto) (9341-3763) /uL Lymph # (Auto) (8588-2568) /uL [place] # (Auto) (0-900) /uL Eos # (Auto) (0-450) /uL Baso # (Auto) (0-100) /uL Sodium (137-145) mmol/L Potassium (3.4-5.1) mmol/L Chloride (98-107) mmol/L Carbon Dioxide (22-32) mmol/L BUN (7-17) mg/dL Creatinine (0.52-1.04) mg/dL Estimated GFR (>60) mL/min BUN/Creatinine Ratio (6-22) Glucose (70-100) mg/dL Lactate (0.7-2.1) mmol/L Calcium (8.4-10.2) mg/dL Magnesium (1.6-2.3) mg/dL Total Bilirubin (0.2-1.3) mg/dL AST (14-36) IU/L ALT (<35) IU/L Alkaline Phosphatase (38-126) U/L Total Protein (6.3-8.2) g/dL Albumin (3.5-5.0) g/dL Globulin (1.7-4.1) g/dL Albumin/Globulin Ratio (1.0-2.8) Lipase (23-300) U/L Urine Color Urine Appearance Urine pH (4.5-8.0) Ur Specific [place] (1.000-1.035) Urine Protein (Negative) Urine Glucose (UA) (Negative) g/dL Urine Ketones (NEGATIVE) Urine Occult Blood (Negative) Urine Nitrate (Negative) Urine Bilirubin (NEGATIVE) Urine Urobilinogen (0.2) E.U./dL Ur Leukocyte Esterase (NEGATIVE) Urine RBC (0-5/HPF) Urine WBC (0-5/HPF) Ur Squamous Epith Cells (0-5/HPF) Urine Bacteria (None) Ur Culture Indicated? Urine Test Negative (Negative) Chlamy pneumoniae PCR (Not Detect) Adenovirus (PCR) (Not Detect) B. pertussis DNA (PCR) (Not Detecte) B.parapertussis DNA PCR (Not Detecte) Coronavirus OC43 (PCR) (Not Detect) Coronavirus HKU1 (PCR) (Not Detect) Coronavirus 229E (PCR) (Not Detect) SARS-CoV-2 (PCR) (Not Detecte) Coronavirus NL63 (PCR) (Not Detect) Human Metapneumovir PCR (Not Detect) Influenza Type A (PCR) (Not Detect) Influenza Type B (PCR) (Not Detect) M. pneumoniae (PCR) (Not Detect) Parainfluenza 1 (PCR) (Not Detect) Parainfluenza 2 (PCR) (Not Detect) Parainfluenza 3 (PCR) (Not Detect) Parainfluenza 4 (PCR) (Not Detect) RSV (PCR) (Not Detect) Entero/Rhino (PCR) (Not Detect) Point of care testing: Point of Care Testing Test Results Negative Imaging Data CT scan - abdomen/pelvis: Radiologist's Impression: Close Abdomen/Pelvis CT (Signed) Kade Mackey - 07/08/23 Abdomen X-Ray (Signed) Pramod Vargas - 01/20/23 Radiology Report (Cancelled) Denise Mcrae - 10/19/22 Myocardial Perfusion Scan Nuc Med (Signed) Denise Mcrae - 10/19/22 Chest X-Ray (Signed) Tyree Rodas - 10/16/22 Telemetry Strips 10/15/22 Telemetry Strips 10/15/22 Chest X-Ray (Signed) Devin Ambriz - 10/15/22 Telemetry Strips 07/24/22 Abdomen/Pelvis CT (Signed) Marbin Vasquez - 07/24/22 Echocardiogram Ultrasound (Signed) Denise Mcrae - 07/01/22 Chest X-Ray (Signed) Jaime Kapadia - 06/30/22 ECHO-Doppler Report 06/30/22 Telemetry Strips 02/12/22 Abdomen/Pelvis CT (Signed) Kade Mackey - 02/12/22 Shoulder MRI (Signed) Yaw Andujar - 03/21/21 Cervical Spine MRI (Signed) Muriel Peña - 03/21/21 Wrist X-Ray (Signed) Chuck Mcgraw - 12/18/20 Tibia/Fibula X-Ray (Signed) Chuck Mcgraw - 12/18/20 Finger X-Ray (Signed) Daisha Schmidt - 05/16/20 Cardiac Catheterization Report 11/06/[address] [address] [address] Scan Report Signed Patient: Rhonda Yadav MR#: [id number] : 1975 Acct:[id number] Age/Sex: 47 / F Date of Service: 07/08/23 Loc: ED Accession Number: [id number] ?? Procedure: CT abdomen pelvis w con Ordering Provider: Janis Saxena D.O. PROCEDURE:? CT ABDOMEN PELVIS W CON ? INDICATIONS:? n/v/d, abd pain ? TECHNIQUE:? After the administration of intravenous contrast, axial sections acquired from the lung bases to the pubic symphysis.? Coronal and sagittal reformats were performed.? For radiation dose reduction, the following was used:? automated exposure control, adjustment of mA and/or kV according to patient size.? ? COMPARISON:? [facility], CT, CT ABDOMEN PELVIS W CON, 07/24/2022, 11:14. ? FINDINGS:? Image quality:? Excellent.? ? Lung bases:? Unremarkable. Heart:? No significant findings. ? ABDOMEN: Liver:? Unremarkable.? ? Gallbladder:? Surgically absent.? There is chronic dilatation of the biliary tree post cholecystectomy without obstructing mass.? ? Biliary ducts:? Unremarkable.? ? Pancreas:? Unremarkable.? ? Spleen:? Unremarkable.? ? Adrenal Glands:? Unremarkable.? ? Kidneys and Ureters:? Unremarkable.? ? ? Stomach and Bowel:? Hiatal hernia.? Question distal esophageal thickening, unchanged.? There is a distal jejunal intussusception, of uncertain clinical significance.? These are commonly incidental transient findings.? Mild thickening of the rectum and distal sigmoid. Peritoneum:? No abnormal intraperitoneal fluid.? No free air.? ? Ventral Wall: ? No hernias.? Abdominal Nodes:? No retroperitoneal or mesenteric adenopathy by size criteria.? Vessels:? Aorta and inferior vena cava are normal in size.? Again noted is a stable peripherally calcified splenic artery aneurysm measuring 2.5 cm in maximum diameter.? The amount of thrombus within the aneurysm is decreased compared to the previous the [facility] with no significant residual thrombus present.? This finding is not of clinical significance. ? PELVIS: Pelvic Organs:? Left paraovarian varicosities, as before, secondary to left gonadal vein reflux.? IUD present in the uterus.? ? Bladder:? Unremarkable.? ? Pelvic Nodes: No enlarged lymph nodes.? Miscellaneous: No hernias are seen. ? ? ? Bones:? Unremarkable.? IMPRESSION:? ? 1. There is a distal jejunal intussusception.? Most commonly, these are transient incidental phenomena.? However, this patient does have acute symptomatology.? There is a potential that the intussusception may be related to a underlying lesion.? Therefore, consider CT enterography on a nonemergent basis. ? 2. There is mild thickening of the wall of the rectum and sigmoid, which may represent changes of distal colitis. ? 3. Hiatal hernia. ? 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 In certain individuals this finding can correlate with the clinical syndrome of chronic pelvic venous congestion. ? 5. Stable 2.5 cm splenic artery aneurysm. ? 6. Remote cholecystectomy.? ? ? Dictated by: Kade Mackey M.D. on 07/08/2023 at 13:02 ? ? Approved by: Kade Mackey M.D. on 07/08/2023 at 13:12?? ECG Data Prior ECG tracings: available for review Interpretation: Sinus rhythm rate of 68 OK 174 QRS of [address] elevation. Patient does have some depression in lateral leads. MDM Narrative Medical decision making narrative: 47-year-old female presents with complaint of nausea vomiting and diarrhea since 3:00 a.m. she did have some stool and urine here on the bed. Patient does not seem to indicate that that is unusual for her but I do not recall that from her prior visits. She does have hypokalemia with potassium at 2.6, normal renal function, magnesium is LFTs are negative. Patient's has prior EKG with a QTC 376. Attemptin to get a EKG here in the department but was challenging secondary to patient motion. Patient does have some slight changes to your typical presentation so felt ludwig ropriate for CT abdomen and pelvis. 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 Attempting get stool sample for GI as well urine sample. Urine sample negative for infection. Patient had Zofran, Ativan she had some improvement she does request Haldol at this time. Spoke with Dr. Everett, general surgery: Reviewed patient's imaging, labs and urine, accepts for inpatient admission. Discussed replacing potassium curr ently, patient has received fluids lactate was 3, 3 hour reflux should be pending. Discharge Plan Departure Patient Disposition: Admitted As Inpatient Clinical Impression: Intussusception of jejunum, Hypokalemia, Hernia, hiatal, Aneurysm of splenic artery Admit Date/Time: 07/08/23 13:59 Admit Provider: José Miguel Everett
[2023-07-08 12:23] LABS: Adenovirus Not Detected (Not Detect); B. parapertussis Not Detected (Not Detecte); Bordetella pertussis Not Detected (Not Detecte); Chlamydophila pneumoniae Not Detected (Not Detect); Coronavirus 229E Not Detected (Not Detect); Coronavirus HKU1 Not Detected (Not Detect); Coronavirus NL 63 Not Detected (Not Detect); Coronavirus OC43 Not Detected (Not Detect); Human Metapneumovirus Not Detected (Not Detect); Human Rhinovirus/Enterovirus Not Detected (Not Detect); Influenza A Not Detected (Not Detect); Influenza B Not Detected (Not Detect); Mycoplasma pneumoniae Not Detected (Not Detect); Parainfluenza Virus 1 Not Detected (Not Detect); Parainfluenza Virus 2 Not Detected (Not Detect); Parainfluenza Virus 3 Not Detected (Not Detect); Parainfluenza Virus 4 Not Detected (Not Detect); Respiratory Syncytial Virus Not Detected (Not Detect); SARS- CoV-2 Not Detected (Not Detecte)
--- NOTE | 2023-07-08 12:23 | DI.CT.S_ITS ---
PROCEDURE: CT ABDOMEN PELVIS W CON INDICATIONS: n/v/d, abd pain TECHNIQUE: After the administration of intravenous contrast, axial sections acquired from the lung bases to the pubic symphysis. Coronal and sagittal reformats were performed. For radiation dose reduction, the following was used: automated exposure control, adjustment of mA and/or kV according to patient size. COMPARISON: [facility], CT, CT ABDOMEN PELVIS W CON, 07/24/2022, 11:14. FINDINGS: Image quality: Excellent. Lung bases: Unremarkable. Heart: No significant findings. ABDOMEN: Liver: Unremarkable. Gallbladder: Surgically absent. There is chronic dilatation of the biliary tree post cholecystectomy without obstructing mass. Biliary ducts: Unremarkable. Pancreas: Unremarkable. Spleen: Unremarkable. Adrenal Glands: Unremarkable. Kidneys and Ureters: Unremarkable. Stomach and Bowel: Hiatal hernia. Question distal esophageal thickening, unchanged. There is a distal jejunal intussusception, of uncertain clinical significance. These are commonly incidental transient findings. Mild thickening of the rectum and distal sigmoid. Peritoneum: No abnormal intraperitoneal fluid. No free air. Ventral Wall: No hernias. Abdominal Nodes: No retroperitoneal or mesenteric adenopathy by size criteria. Vessels: Aorta and inferior vena cava are normal in size. Again noted is a stable peripherally calcified splenic artery aneurysm measuring 2.5 cm in maximum diameter. The amount of thrombus within the aneurysm is decreased compared to the previous study with no significant residual thrombus present. This finding is not of clinical significance. PELVIS: Pelvic Organs: Left paraovarian varicosities, as before, secondary to left gonadal vein reflux. IUD present in the uterus. Bladder: Unremarkable. Pelvic Nodes: No enlarged lymph nodes. Miscellaneous: No hernias are seen. Bones: Unremarkable. IMPRESSION: 1. There is a distal jejunal intussusception. Most commonly, these are transient incidental phenomena. However, this patient does have acute symptomatology. There is a potential that the intussusception may be related to a underlying lesion. Therefore, consider CT enterography on a nonemergent basis. 2. There is mild thickening of the wall of the rectum and sigmoid, which may represent changes of distal colitis. 3. Hiatal hernia. 4. 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 In certain individuals this finding can correlate with the clinical syndrome of chronic pelvic venous congestion. 5. Stable 2.5 cm splenic artery aneurysm. 6. Remote cholecystectomy. Dictated by: Kade Mackey M.D. on 07/08/2023 at 13:02 Approved by: Kade Mackey M.D. on 07/08/2023 at 13:12
[2023-07-08 12:50] LABS: Magnesium 1.8 mg/dL (1.6-2.3)
[2023-07-08] MEDS: HALOPERIDOL 5 MG/ML VIAL IV (13:00)
[2023-07-08 13:13] LABS: Appearance Urine UA CLEAR; Bilirubin Urine UA NEGATIVE (NEGATIVE); Color Urine UA YELLOW; Glucose Urine UA NEGATIVE (Negative); Ketones Urine UA 1+ (NEGATIVE); Leukocyte Esterase Urine UA NEGATIVE (NEGATIVE); Nitrite Urine UA NEGATIVE (Negative); Occult Blood Urine UA TRACE-INTACT (Negative); Protein Urine UA 2+ (Negative); Specific Gravity Urine UA 1.015 (1.000-1.035)
[2023-07-08 13:20] LABS: pH Urine UA 7.5 (4.5-8.0)
[2023-07-08 13:21] LABS: Bacteria Urine None Seen; Culture Indicated Urine Cult Not Indicated; RBC Urine 0-1/HPF (0-5/HPF); Squamous Epithelial Cell Urine 1-5 /HPF (0-5/HPF); WBC Urine 1-5/HPF (0-5/HPF)
[2023-07-08 14:15] LABS: Pregnancy Test Urine Negative (Negative)
[2023-07-08 14:38] LABS: Reflexed Lactate in 2 Hours Y
[2023-07-08 15:25] LABS: Lactate 2HR (Lactic Acid Rflx) 1.4 mmol/L (0.7-2.1)
--- NOTE | 2023-07-08 16:02 | PM.HP.1 ---
History of Present Illness History of Present Illness Date Patient Seen: 07/08/23 Time Patient Seen: 16:02 Chief complaint: cyclic vomitting Narrative: 47-year-old woman presented to the emergency department today with severe abdominal pain and emesis. She is been seen numerous times at this hospital's Emergency Department for cyclic vomiting and abdominal pain with no clear diagnosis. Today at admission laboratory studies demonstrate white blood cell count 9 with a left shift chemistry significant for potassium of 2.9, initial lactic acid 3.0 corrected after fluid resuscitation. CT abdomen pelvis demonstrates a small bowel small bowel intussusception. No free air or free fluid. From her chart notes she has been diagnosed with intussusception before but this has never been followed up on. Previous abdominal surgery includes appendectomy and cholecystectomy. At this time she is received Haldol to aid in nausea control and she is unable to provide further history. [facility] Medical History Abscess Chronic abdominal pain Cyclic vomiting syndrome Family history of angioedema Marijuana use, continuous MRSA (methicillin resistant staph aureus) culture positive Pancreatitis Surgical History Hx of appendectomy Hx of cholecystectomy Family History Father Hypertension Mother Diabetes mellitus Daughter Angio-edema Other Colon cancer Social History household members: spouse Smoking Status: Current every day smoker alcohol intake: current Meds Home Medications and Allergies Home Medications Medication Instructions Recorded Confirmed Type promethazine 25 mg rectal 25 mg RI Q4-6H PRN nausea and 01/20/23 Rx suppository vomiting #12 ea ondansetron 4 mg disintegrating 4 mg PO Q8H PRN nausea and 02/12/23 Rx tablet vomiting #10 tabs Allergies Allergy/AdvReac Type Severity Reaction Status Date / Time latex [LATEX] Allergy Unknown Verified 07/08/23 10:38 metoclopramide AdvReac Unknown DYSTONIA Verified 07/08/23 10:38 [METOCLOPRAMIDE] Exam Vital Signs (past 8 hours): - 07/08/23 10:35 07/08/23 10:39 07/08/23 11:00 Temperature 97.7 F Pulse Rate 77 75 Respiratory Rate 20 Blood Pressure 180/106 H 184/101 H Pulse Oximetry 100 100 Oxygen Delivery Method Room Air Nasal Cannula Oxygen Flow Rate 1 07/08/23 11:00 07/08/23 11:02 07/08/23 11:02 Temperature Pulse Rate 76 67 Respiratory Rate Blood Pressure 182/106 H Pulse Oximetry 100 99 Oxygen Delivery Method Nasal Cannula Nasal Cannula Oxygen Flow Rate 1 1 07/08/23 11:10 07/08/23 11:10 07/08/23 11:21 Temperature Pulse Rate 72 Respiratory Rate Blood Pressure 168/100 H 165/90 H Pulse Oximetry 100 Oxygen Delivery Method Oxygen Flow Rate 07/08/23 11:21 07/08/23 11:22 07/08/23 11:22 Temperature Pulse Rate 75 72 Respiratory Rate Blood Pressure 165/94 H Pulse Oximetry 100 100 Oxygen Delivery Method Oxygen Flow Rate 07/08/23 11:30 07/08/23 11:30 07/08/23 11:40 Temperature Pulse Rate 69 64 Respiratory Rate Blood Pressure 166/97 H Pulse Oximetry 100 100 Oxygen Delivery Method Oxygen Flow Rate 07/08/23 11:40 07/08/23 11:50 07/08/23 11:50 Temperature Pulse Rate 61 Respiratory Rate Blood Pressure 167/96 H 169/101 H Pulse Oximetry 100 Oxygen Delivery Method Oxygen Flow Rate 07/08/23 12:00 07/08/23 12:00 07/08/23 12:42 Temperature Pulse Rate 76 68 Respiratory Rate Blood Pressure 180/105 H Pulse Oximetry 100 97 Oxygen Delivery Method Oxygen Flow Rate 07/08/23 12:43 07/08/23 12:43 07/08/23 12:51 Temperature Pulse Rate 65 Respiratory Rate Blood Pressure 204/94 H 225/105 H Pulse Oximetry 91 Oxygen Delivery Method Oxygen Flow Rate 07/08/23 12:51 07/08/23 13:00 07/08/23 13:00 Temperature Pulse Rate 70 67 Respiratory Rate Blood Pressure 227/106 H Pulse Oximetry 100 100 Oxygen Delivery Method Oxygen Flow Rate 07/08/23 13:10 07/08/23 13:10 07/08/23 13:13 Temperature Pulse Rate 71 Respiratory Rate Blood Pressure 215/104 H 206/98 H Pulse Oximetry 99 Oxygen Delivery Method Nasal Cannula Oxygen Flow Rate 2 07/08/23 13:13 07/08/23 13:16 07/08/23 13:16 Temperature Pulse Rate 73 73 Respiratory Rate Blood Pressure 187/100 H Pulse Oximetry 100 100 Oxygen Delivery Method Nasal Cannula Oxygen Flow Rate 2 07/08/23 13:20 07/08/23 13:20 07/08/23 13:25 Temperature Pulse Rate 74 Respiratory Rate Blood Pressure 184/101 H 195/103 H Pulse Oximetry 100 Oxygen Delivery Method Nasal Cannula Oxygen Flow Rate 2 07/08/23 13:25 07/08/23 13:30 07/08/23 13:30 Temperature Pulse Rate 76 75 Respiratory Rate Blood Pressure 191/105 H Pulse Oximetry 100 100 Oxygen Delivery Method Nasal Cannula Oxygen Flow Rate 2 07/08/23 13:35 07/08/23 13:35 07/08/23 13:40 Temperature Pulse Rate 78 Respiratory Rate Blood Pressure 180/97 H 182/105 H Pulse Oximetry 100 Oxygen Delivery Method Oxygen Flow Rate 07/08/23 13:40 07/08/23 13:40 07/08/23 13:40 Temperature Pulse Rate Respiratory Rate Blood Pressure 182/105 H 182/105 H 182/105 H Pulse Oximetry Oxygen Delivery Method Oxygen Flow Rate 07/08/23 13:40 07/08/23 13:45 07/08/23 13:45 Temperature Pulse Rate 76 78 Respiratory Rate Blood Pressure 187/111 H Pulse Oximetry 100 100 Oxygen Delivery Method Nasal Cannula Nasal Cannula Oxygen Flow Rate 2 2 07/08/23 13:50 07/08/23 13:50 07/08/23 13:55 Temperature Pulse Rate 78 Respiratory Rate Blood Pressure 178/99 H 186/104 H Pulse Oximetry 100 Oxygen Delivery Method Oxygen Flow Rate 07/08/23 13:55 07/08/23 14:00 07/08/23 14:00 Temperature Pulse Rate 79 78 Respiratory Rate Blood Pressure 190/95 H Pulse Oximetry 100 100 Oxygen Delivery Method Nasal Cannula Oxygen Flow Rate 2 07/08/23 14:05 07/08/23 14:05 07/08/23 14:10 Temperature Pulse Rate 78 Respiratory Rate Blood Pressure 198/102 H 193/105 H Pulse Oximetry 100 Oxygen Delivery Method Nasal Cannula Oxygen Flow Rate 2 07/08/23 14:10 07/08/23 14:15 07/08/23 14:15 Temperature Pulse Rate 81 80 Respiratory Rate Blood Pressure 178/97 H Pulse Oximetry 100 100 Oxygen Delivery Method Nasal Cannula Oxygen Flow Rate 2 07/08/23 14:20 07/08/23 14:20 07/08/23 14:25 Temperature Pulse Rate 82 Respiratory Rate Blood Pressure 190/94 H 187/100 H Pulse Oximetry 100 Oxygen Delivery Method Oxygen Flow Rate 07/08/23 14:25 07/08/23 14:30 07/08/23 14:30 Temperature Pulse Rate 81 84 Respiratory Rate Blood Pressure 188/101 H Pulse Oximetry 100 100 Oxygen Delivery Method Oxygen Flow Rate 07/08/23 14:35 07/08/23 14:35 07/08/23 14:40 Temperature Pulse Rate 82 83 Respiratory Rate Blood Pressure 188/97 H Pulse Oximetry 100 100 Oxygen Delivery Method Oxygen Flow Rate 07/08/23 14:40 07/08/23 14:45 07/08/23 14:45 Temperature Pulse Rate 80 Respiratory Rate Blood Pressure 187/89 H 189/93 H Pulse Oximetry 100 Oxygen Delivery Method Oxygen Flow Rate 07/08/23 14:50 07/08/23 14:50 07/08/23 14:55 Temperature Pulse Rate 80 81 Respiratory Rate Blood Pressure 186/94 H Pulse Oximetry 100 100 Oxygen Delivery Method Oxygen Flow Rate 07/08/23 14:55 07/08/23 15:00 07/08/23 15:00 Temperature Pulse Rate 83 Respiratory Rate Blood Pressure 189/105 H 177/106 H Pulse Oximetry 100 Oxygen Delivery Method Oxygen Flow Rate Oxygen Delivery Method Nasal Cannula Oxygen Flow Rate 2 Narrative Exam Narrative: General adult woman drowsy and uncomfortable but arousable to voice. Oriented x3 Chest nonlabored respiration Abdomen severe tenderness epigastric region no rebound. Extremities warm well perfused Objective Labs 07/08/23 11:17 07/08/23 16:15 Labs: Laboratory Results - last 24 hr 07/08/23 07/08/23 07/08/23 11:17 11:17 11:17 WBC 9.2 RBC 3.96 L Hgb 12.6 Hct 36.8 MCV 93.1 MCH 32.0 MCHC 34.3 RDW 13.4 Plt Count 265 Neut % (Auto) 89.0 H Lymph % (Auto) 8.0 L [place] % (Auto) 2.7 L Eos % (Auto) 0.1 L Baso % (Auto) 0.2 Neut # (Auto) 8200 H Lymph # (Auto) 700 L [place] # (Auto) 200 Eos # (Auto) 0 Baso # (Auto) 0 Sodium 140 Potassium 2.9 L Chloride 102 Carbon Dioxide 24 BUN 10 Creatinine 0.63 Estimated GFR > 60 BUN/Creatinine Ratio 15.9 Glucose 154 H Lactate Calcium 9.7 Magnesium 1.8 Total Bilirubin 0.9 AST 34 ALT 20 Alkaline Phosphatase 107 Total Protein 9.0 H Albumin 4.8 Globulin 4.2 H Albumin/Globulin Ratio 1.1 Lipase 259 Urine Color Urine Appearance Urine pH Ur Specific [place] Urine Protein Urine Glucose (UA) Urine Ketones Urine Occult Blood Urine Nitrate Urine Bilirubin Urine Urobilinogen Ur Leukocyte Esterase Urine RBC Urine WBC Ur Squamous Epith Cells Urine Bacteria Ur Culture Indicated? Urine Test Chlamy pneumoniae PCR Adenovirus (PCR) B. pertussis DNA (PCR) B.parapertussis DNA PCR Coronavirus OC43 (PCR) Coronavirus HKU1 (PCR) Coronavirus 229E (PCR) SARS-CoV-2 (PCR) Coronavirus NL63 (PCR) Human Metapneumovir PCR Influenza Type A (PCR) Influenza Type B (PCR) M. pneumoniae (PCR) Parainfluenza 1 (PCR) Parainfluenza 2 (PCR) Parainfluenza 3 (PCR) Parainfluenza 4 (PCR) RSV (PCR) Entero/Rhino (PCR) 07/08/23 07/08/23 07/08/23 11:17 11:27 11:29 WBC RBC Hgb Hct MCV MCH MCHC RDW Plt Count Neut % (Auto) Lymph % (Auto) [place] % (Auto) Eos % (Auto) Baso % (Auto) Neut # (Auto) Lymph # (Auto) [place] # (Auto) Eos # (Auto) Baso # (Auto) Sodium Potassium Chloride Carbon Dioxide BUN Creatinine Estimated GFR BUN/Creatinine Ratio Glucose Lactate 3.0 H Calcium Magnesium Total Bilirubin AST ALT Alkaline Phosphatase Total Protein Albumin Globulin Albumin/Globulin Ratio Lipase Urine Color Yellow Urine Appearance Clear Urine pH 7.5 Ur Specific [place] 1.015 Urine Protein 2+ H Urine Glucose (UA) Negative Urine Ketones 1+ H Urine Occult Blood Trace-intact Urine Nitrate Negative Urine Bilirubin Negative Urine Urobilinogen 1.0 Ur Leukocyte Esterase Negative Urine RBC 0-1/hpf Urine WBC 1-5/hpf Ur Squamous Epith Cells 1-5 /hpf Urine Bacteria None seen Ur Culture Indicated? Cult not indicated Urine Test Chlamy pneumoniae PCR Not detected Adenovirus (PCR) Not detected B. pertussis DNA (PCR) Not detected B.parapertussis DNA PCR Not detected Coronavirus OC43 (PCR) Not detected Coronavirus HKU1 (PCR) Not detected Coronavirus 229E (PCR) Not detected SARS-CoV-2 (PCR) Not detected Coronavirus NL63 (PCR) Not detected Human Metapneumovir PCR Not detected Influenza Type A (PCR) Not detected Influenza Type B (PCR) Not detected M. pneumoniae (PCR) Not detected Parainfluenza 1 (PCR) Not detected Parainfluenza 2 (PCR) Not detected Parainfluenza 3 (PCR) Not detected Parainfluenza 4 (PCR) Not detected RSV (PCR) Not detected Entero/Rhino (PCR) Not detected 07/08/23 07/08/23 13:00 15:05 WBC RBC Hgb Hct MCV MCH MCHC RDW Plt Count Neut % (Auto) Lymph % (Auto) [place] % (Auto) Eos % (Auto) Baso % (Auto) Neut # (Auto) Lymph # (Auto) [place] # (Auto) Eos # (Auto) Baso # (Auto) Sodium Potassium Chloride Carbon Dioxide BUN Creatinine Estimated GFR BUN/Creatinine Ratio Glucose Lactate 1.4 Calcium Magnesium Total Bilirubin AST ALT Alkaline Phosphatase Total Protein Albumin Globulin Albumin/Globulin Ratio Lipase Urine Color Urine Appearance Urine pH Ur Specific [place] Urine Protein Urine Glucose (UA) Urine Ketones Urine Occult Blood Urine Nitrate Urine Bilirubin Urine Urobilinogen Ur Leukocyte Esterase Urine RBC Urine WBC Ur Squamous Epith Cells Urine Bacteria Ur Culture Indicated? Urine Test Negative Chlamy pneumoniae PCR Adenovirus (PCR) B. pertussis DNA (PCR) B.parapertussis DNA PCR Coronavirus OC43 (PCR) Coronavirus HKU1 (PCR) Coronavirus 229E (PCR) SARS-CoV-2 (PCR) Coronavirus NL63 (PCR) Human Metapneumovir PCR Influenza Type A (PCR) Influenza Type B (PCR) M. pneumoniae (PCR) Parainfluenza 1 (PCR) Parainfluenza 2 (PCR) Parainfluenza 3 (PCR) Parainfluenza 4 (PCR) RSV (PCR) Entero/Rhino (PCR) Assessment & Plan Assessment and plan (1) Intussusception of jejunum: Status: Acute Assessment & Plan narrative: 47-year-old woman with an acute intussusception and a history of cyclical vomiting. CT abdomen pelvis and laboratory studies are personally reviewed. Significant for hypokalemia of 2.[address] abdomen pelvis demonstrates a small bowel small bowel intussusception no free air or free fluid. She has significant abdominal pain on examination and this in conjunction with her imaging I am recommending that we proceed to the operating room for an exploratory laparotomy likely small-bowel resection. I explained to the patient that frequently intussusception in adults is associated with a pathological lead point requiring small-bowel resection. Additionally with her degree of abdominal pain there is concern for intestinal ischemia. Overview of the operation was discussed with the patient and her who is present. Operative risks including hemorrhage, infection, anastomotic leak, damage to surrounding structures were discussed. Questions have been answered. As she has recently received sedating medication provides his written and verbal consent to proceed.
[2023-07-08 16:37] LABS: Blood Urea Nitrogen 9 mg/dL (7-17); Calcium 8.6 mg/dL (8.4-10.2); Carbon Dioxide 27 mmol/L (22-32); Chloride 104 mmol/L (98-107); Estimated Glomerular Filt Rate > 60 mL/min (>60); Glucose 123 mg/dL (70-100); HEMOLYSIS < 15 (0-50); Potassium 3.5 mmol/L (3.4-5.1); Sodium 140 mmol/L (137-145)
[2023-07-08] MEDS: LACTATED RINGERS 1,000 ML 125 ML IV (16:48)
[2023-07-08] MEDS: PIPERACILLIN/TAZO 4.5 GM in SODIUM CHLORIDE 0.9% 100 ML IV (17:15)
--- NOTE | 2023-07-08 17:26 | SUR.OPER ---
Supine on padded OR bed, head on pillow, arms secured on padded arm boards at <90 degrees abduction, legs uncrossed, safety belt at thigh, tape over blanket over lower legs.
[2023-07-08 17:37] LABS: MRSA (Nasal) PCR DETECTED (Not Detect)
[2023-07-08] MEDS: BUPIVACAINE 0.25% (PF) VIAL 30 ML INJ (17:44)
--- NOTE | 2023-07-08 18:12 | PM.OP.1 ---
Operative Date/Time/Diagnoses Date of procedure: 07/08/23 Time of procedure: 18:12 Pre-op diagnosis: Intussusception Post-op diagnosis: same Procedure & Clinicians Procedure: Exploratory laparotomy Same procedure as scheduled: Yes Indications: 47-year-old woman who has a history of cyclic vomiting presented to the emergency department today with severe abdominal pain CT abdomen pelvis demonstrates a small bowel small bowel intussusception. After discussion with the patient and her about the possibility of bowel ischemia potential pathological lead point they elect to proceed with a exploratory laparotomy Surgeon: José Miguel Everett Click Yes if Unassisted: Yes Anesthesia Type: General Operative Notes Findings: Normal small bowel. Specimen(s): none sent Estimated Blood Loss (mL): 20 Procedure in detail: Patient was brought to the operating room placed supine on the table. Bilateral lower extremity compression devices were applied. General anesthesia was induced she was intubated with an endotracheal tube. She was then prepped and draped in sterile fashion. Time-out was performed. She received 3.375 g of Zosyn prior to skin incision. An upper midline incision was made the abdomen was entered. The small bowel was eviscerated. The small bowel was examined from the ligament of Treitz to the terminal ileum a total of 5 times examining for pathology. No evidence of current intussusception or small-bowel pathology was identified. However the proximal small bowel was distinctly dilated in comparison to distal bowel, suggesting that she may have had a temporary intussusception. Hemostasis was checked. The small bowel was returned to the abdomen. The abdomen was then closed with 1. PDS for the fascia. Subcutaneous tissue was reapproximated with 3-0 Vicryl and skin closed with nehal. Total of 30 mL of 0.25% bupivacaine was used for local anesthesia. She was extubated and transferred to recovery in stable condition. Complications: none Post-operative Condition: stable Disposition: Acute Care
--- NOTE | 2023-07-08 18:22 | PC.NURSE ---
Addendum entered by Tracie Mota R.N. 07/08/23 19:14: Pt arrived from OR to room 227 at 1842. Pt difficult to rouse, tachypnic RR30, hypertensive. Pupils reactive. Pt able to open eyes with touch and verbal stimuli. BP now 157/96. Family as bedside. 96% 2L NC, RR now 18. HR 75 NSR. Bed alarm active, call light within reach. Pt moved to room near nurse's station for closer observation. Care ongoing. Original Note: Admit: Pt wheeled via stretcher from ED at approximately 1522. Pt alert to self, situation, year, and place but drowsy. Hypertensive (See vitals), surgeon aware. Tachypneic RR 35, 97% on RA. Pre-op RN transported pt at approximately 1610 to OR.
[2023-07-08] MEDS: LABETALOL 20 MG/4 ML SYRINGE 10 MG IV (18:37)
[2023-07-08] MEDS: SODIUM CHLORIDE 0.9% 1,000 ML 200 ML IV (18:54)
--- NOTE | 2023-07-08 19:09 | PC.NURSE ---
Potassium running at time of transfer from ED to ICU. Bag 3 of 8.
[2023-07-09] VITALS (14 sets, daily range): BP systolic 144–170; BP diastolic 95–106; PULSE 62–84; RESP 17–22; TEMP 35.8–37.1; O2SAT 92–98; BMI 22.9
[2023-07-09] MEDS: LABETALOL 20 MG/4 ML SYRINGE 10 MG IV ×2 (00:15→04:07)
[2023-07-09] MEDS: SODIUM CHLORIDE 0.9% 1,000 ML 200 ML IV ×2 (04:07→09:26)
[2023-07-09] MEDS: HYDROMORPHONE 0.5 MG INJ IV ×5 (04:23→13:36)
[2023-07-09] MEDS: ONDANSETRON 4 MG/2 ML INJ IV (04:31)
[2023-07-09 05:56] LABS: Add Manual Diff / Slide Review NO; Basophils Absolute Auto 0 /uL (0-100); Basophils Percent Auto 0.3 % (0-2); Eosinophils Absolute Auto 0 /uL (0-450); Eosinophils Percent Auto 0.4 % (2-4); Hematocrit 33.8 % (36-46); Hemoglobin 11.6 g/dL (12.0-16.0); Lymphocytes Absolute Auto 1100 /uL (1100-4500); Mean Corpuscular HGB Conc 34.3 % (30-36); Mean Corpuscular Hemoglobin 32.5 PG (26-34); Mean Corpuscular Volume 94.6 fL (80-100); Monocytes Absolute Auto 400 /uL (0-900); Monocytes Percent Auto 4.1 % (3-14); Neutrophils Absolute Auto 8600 /uL (1500-7000); Neutrophils Percent Auto 84.2 % (50-75); Platelet Count 234 X10^3/uL (150-400); Red Blood Cell Count 3.57 X10^6/uL (4.0-5.2); Red Cell Distribution Width 13.3 % (11.6-14.8); White Blood Cell Count 10.2 X10^3/uL (4.5-11.0)
[2023-07-09 06:06] LABS: BUN Creatinine Ratio 14.5 (6-22); Blood Urea Nitrogen 8 mg/dL (7-17); Calcium 8.2 mg/dL (8.4-10.2); Carbon Dioxide 25 mmol/L (22-32); Chloride 107 mmol/L (98-107); Estimated Glomerular Filt Rate > 60 mL/min (>60); Glucose 125 mg/dL (70-100); HEMOLYSIS < 15 (0-50); Potassium 3.7 mmol/L (3.4-5.1); Sodium 139 mmol/L (137-145)
--- NOTE | 2023-07-09 06:37 | PC.NURSE ---
Cinema Operator Note-Patient slept throughout the night, roused briefly during care, oriented. IV Dilaudid given x1 for abdominal pain while coughing, IV Zofran given x1 for nausea without vomiting. IV labetalol given per prn for SBP > 160. K+ riders complete, K+ 3.7.
--- NOTE | 2023-07-09 13:22 | PM.PNPO.1 ---
Subjective Subjective Date Patient Seen: 07/09/23 Time Patient Seen: 13:22 Interval history: No major overnight events. Exam Vital Signs (past 8 hours): - 07/09/23 06:00 07/09/23 07:47 07/09/23 08:00 Temperature 98.4 F Pulse Rate 71 71 Respiratory Rate 22 Blood Pressure 169/103 H 169/103 H 152/98 H Pulse Oximetry 93 Oxygen Delivery Method Oxygen Flow Rate 07/09/23 08:00 07/09/23 07:00 07/09/23 08:00 Temperature Pulse Rate 70 Respiratory Rate 22 Blood Pressure Pulse Oximetry 92 97 Oxygen Delivery Method Nasal Cannula Nasal Cannula Oxygen Flow Rate 1 07/09/23 10:00 07/09/23 12:00 07/09/23 12:00 Temperature Pulse Rate 66 63 Respiratory Rate 19 19 Blood Pressure 167/102 H Pulse Oximetry 93 92 Oxygen Delivery Method Oxygen Flow Rate 07/09/23 12:00 Temperature Pulse Rate Respiratory Rate Blood Pressure Pulse Oximetry 94 Oxygen Delivery Method Room Air Oxygen Flow Rate Oxygen Delivery Method Room Air Oxygen Flow Rate 1 Narrative Exam Narrative: General adult woman drowsy but awakens to voice. Chest nonlabored respirations Abdomen appropriately tender to palpation. Midline incision with dressing in place clean Objective Labs 07/09/23 05:40 07/09/23 05:40 Labs: Laboratory Results - last 24 hr 07/08/23 07/08/23 07/08/23 13:00 15:05 15:39 WBC RBC Hgb Hct MCV MCH MCHC RDW Plt Count Neut % (Auto) Lymph % (Auto) [place] % (Auto) Eos % (Auto) Baso % (Auto) Neut # (Auto) Lymph # (Auto) [place] # (Auto) Eos # (Auto) Baso # (Auto) Sodium Potassium Chloride Carbon Dioxide BUN Creatinine Estimated GFR BUN/Creatinine Ratio Glucose Lactate 1.4 Calcium Urine Test Negative Nasal Screen MRSA (PCR) Detected H 07/08/23 07/09/23 07/09/23 16:15 05:40 05:40 WBC 10.2 RBC 3.57 L Hgb 11.6 L Hct 33.8 L MCV 94.6 MCH 32.5 MCHC 34.3 RDW 13.3 Plt Count 234 Neut % (Auto) 84.2 H Lymph % (Auto) 11.0 L [place] % (Auto) 4.1 Eos % (Auto) 0.4 L Baso % (Auto) 0.3 Neut # (Auto) 8600 H Lymph # (Auto) 1100 [place] # (Auto) 400 Eos # (Auto) 0 Baso # (Auto) 0 Sodium 140 139 Potassium 3.5 3.7 Chloride 104 107 Carbon Dioxide 27 25 BUN 9 8 Creatinine 0.53 0.55 Estimated GFR > 60 > 60 BUN/Creatinine Ratio 17.0 14.5 Glucose 123 H 125 H Lactate Calcium 8.6 8.2 L Urine Test Nasal Screen MRSA (PCR) PFSH Medical History Abscess Chronic abdominal pain Cyclic vomiting syndrome Family history of angioedema Marijuana use, continuous MRSA (methicillin resistant staph aureus) culture positive Pancreatitis Surgical History Hx of appendectomy Hx of cholecystectomy Family History Father Hypertension Mother Diabetes mellitus Daughter Angio-edema Other Colon cancer Social History household members: spouse Smoking Status: Current every day smoker alcohol intake: current Assessment & Plan Post-op Postoperative Procedures: Procedures Operation Date: 07/08/23 16:45 Actual Procedure Side Surgeon p Exploratory Laparotomy GEN José Miguel Everett MD Postoperative status narrative: 47-year-old woman postoperative day 1 status post exploratory laparotomy for small-bowel intussusception. Laparotomy was negative no intussusception was present at that time. -regular diet -remove [place] catheter -PT/OT -SCDs and pLovenox -transition from IV to p.o. pain meds
--- NOTE | 2023-07-09 13:37 | CM.DANOTE ---
Addendum entered by ULISES Mabry 07/09/23 13:48: ADD: Asked Dr washington about the social work consult (?) He did not place, likely placed in the ER Original Note: Initial DCP Assessment Note Pt is a 47 yo female, resident of [place], history of cyclic vomiting, presents via EMS for nausea vomiting and diarrhea Patient is POD1 from Exploratory Laparotomy by Dr Washington that showed no acute process, possibly a temporary intussusception According to nursing admission assessment, patient is a current smoker, former poly substance user, drinks approx 3+ drinks daily, current THC PCP: Joanna Storm Payer: [facility] HO/ABDULLAHI Reviewed chart, attempted to meet with patient today, multiple family members in the room. Patient hysterical in her bed, appears in pain, using suction tube, crying, tongue out RN Isabella aware, getting scheduled pain medication for patient. Isabella states she suspects a psychosomatic component to patient's pain and hysteria Introduced role to family in room and they became defensive telling this MANAGER INTERNAL that patient was obviously not ready for discharge. Explained this MANAGER INTERNAL does not determine if patient is medically stable but can assist w/needs, referrals etc upon discharge Left contact information on the white board Plan: Anticipate patient will discharge home w/family when medically cleared, further assessment of need may be helpful ULISES Alvarado Discharge Planning/Care Management CM Discharge Assessment Start: 07/09/23 13:35 Freq: Status: Active Protocol: Document 07/09/23 13:35 OLYA (Rec: 07/09/23 13:37 OLYA [id number]) Discharge Planning Assessment Assigned Mold Operator ULISES Bright DPOA/Assigned Designee Name Narendra Issa, spouse Contact Information [phone] Advance Directives? No Advance Directives on File No History Provided By Medical Record Prior Living Arrangements Apartment/Condo Household Members spouse Type of transporation used prior to Drives own vehicle admit Independent with ADL's Yes Is patient alert and oriented? Yes Barriers to Discharge No Comment Anticipate patient will return home w/family and encouragement to follow up outpatient Discharge Plan Home Transportation Arrangement Family to provide transport Additional Comment Following closely in case DC needs or concerns arise Whiteboard Updated in Patient Room with Yes name and ext. # of Mold Operator
--- NOTE | 2023-07-09 14:04 | PT.IIE ---
Current Diagnoses Intussusception (07/08/23) Surgery Performed Operation Date: 07/08/23 16:45 Actual Procedures p Exploratory Laparotomy GEN - José Miguel Everett MD Surgical History (Last Reviewed 07/08/23 @ 16:06 by José Miguel Everett MD) Hx of appendectomy Hx of cholecystectomy Medical History (Last Reviewed 07/08/23 @ 16:06 by José Miguel Everett MD) Abscess Chronic abdominal pain Cyclic vomiting syndrome Family history of angioedema Marijuana use, continuous MRSA (methicillin resistant staph aureus) culture positive Pancreatitis Physical Therapy Inpatient Evaluation/Re-Eval M1 PT/OT-IP Prior Functional Status Start: 07/09/23 14:26 Freq: NEEDED Status: Active Protocol: Document 07/09/23 14:26 AB (Rec: 07/09/23 14:41 AB [id number]) Medical Review Prior Functional Status Medical History Reviewed Yes Mobility and Gait IND Activities of Daily Living and IADL's IND Prior Functional Level (Other details) IND Social History Household Members spouse Living Arrangements Apartment/Condo Number of Stairs To Enter/Railing? 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 PT-IP Current Condition Start: 07/09/23 14:26 Freq: NEEDED Status: Active Protocol: Document 07/09/23 14:26 AB (Rec: 07/09/23 14:41 AB [id number]) Physical Therapy Current Condition Current Condition Evaluation Date 07/09/23 Treatment Diagnosis s/p explorative laparotomy Onset Date 07/08/23 M3 PT-IP Subjective Start: 07/09/23 14:26 Freq: NEEDED Status: Active Protocol: Document 07/09/23 14:26 AB (Rec: 07/09/23 14:41 AB [id number]) Subjective Physical Therapy Visit Type Type Initial Evaluation Visit Start Time 14:04 Visit Stop Time 14:29 Total Visit Minutes 25 Number of VP STRATEGY Visits 0 Physical Therapy Visit Comments Patient Comments Pt reports she is having a lot of pain in her abdomen, and initially refuses PT however is agreeable after education regarding indication for PT. Patient Goals Pt would like to get rid of her pain. Therapy Pain Assessment Pain When Pain Assessed At Rest Pain Present Pain Present Pain Reported Location Abdomen Intensity 8 Scale Used Numeric (0 - 10) Pain Behaviors Facial Grimacing,Holding Area Pain Management Techniques Re-positioning M4 PT-IP Mobility and Gait Start: 07/09/23 14:26 Freq: NEEDED Status: Active Protocol: Document 07/09/23 14:26 AB (Rec: 07/09/23 14:41 AB [id number]) PT-Bed Mobility Assessment Rolling Type of Rolling Roll to Right,Roll to Left Level of Assist Independent Supine to Sit Supine to Sit Independent Sit to Supine Sit to Supine Independent Scooting Scooting to Edge of Bed Independent PT-Transfer Assessment Sit to and From Stand Sit to and from Stand Independent Equipment Transfer Assistive Device None Transfers Transfer Destination Bed Transfer Technique Stand Step Pivot Transfer Ability Level of Assist Independent Comments Mobility Comments Pt is limited by pain but still able to perform bed mobility, STS, transfers with IND. Gait Assessment Factors Limiting Gait Function Factors Limiting Gait Function Pain Comments Gait Comments Unable to assess gait due to significant pain reported when standing. Stair Climbing Assessment Comments Stair Climbing Comments Unable to assess stairs due to significant pain when standing. PT-Balance Assessment Sitting Balance and Reactions Static Sitting Balance Ability Normal Standing Balance and Reactions Static Standing Balance Ability Normal M5 PT-IP Objective Assessments Start: 07/09/23 14:26 Freq: NEEDED Status: Active Protocol: Document 07/09/23 14:26 AB (Rec: 07/09/23 14:41 AB [id number]) Orientation Orientation/Cognition Level of Alertness Alert Orientation Name,Age,Birthday,Month,Date, Year,Day of Week,Place, Situation Language Function Ability No Deficits Noted Safety Awareness Understands Safety Issues Memory Description No Deficits Noted Gross Range of Motion Upper Extremity ROM Assessment Within Functional Limits Lower Extremity ROM Assessment Within Functional Limits Strength Upper Extremity Strength Assessment Within Functional Limits Lower Extremity Strength Assessment Within Functional Limits Sensation Assessment Sensation Gross Sensation WNL Muscle Tone Muscle Tone WNL No M6 PT-IP Treatment Start: 07/09/23 14:26 Freq: NEEDED Status: Active Protocol: Document 07/09/23 14:26 AB (Rec: 07/09/23 14:41 AB [id number]) Physical Therapy Treatment Education Education Provided Safety Other Treatments Other Treatment Performed Exercises deferred at this time due to pain symptoms. M7 PT-IP Assessment and Plan Start: 07/09/23 14:26 Freq: NEEDED Status: Active Protocol: Document 07/09/23 14:26 AB (Rec: 07/09/23 14:41 AB [id number]) PT Summary Assessment and Plan Potential Rehabilitation Potential Excellent Status of Condition at Evaluation Stable Summary Impairments Pain,Activity Tolerance Assessment Summary Rhonda Yadav is a 47 year old female s/p exploratory laparotomy performed on . The pt demonstrates good safety awareness, good and standing balance, as well as independence with bed mobility , STS and transfers. The pt's limiting factor is pain associated with the surgical procedure performed. Based on her current level of function, the pt does not require skilled PT at this time, as no significant functional limitations that would risk her safety are noted today. Frequency of Treatment Frequency Of Treatment Discharge Recommendations To Nursing Amount of Assist Needed Standby Assistance Discharge Recommendations PT Discharge Recommendations Home Transportation Needs at Discharge Private Vehicle
--- NOTE | 2023-07-09 14:43 | PT-IP ANOTE ---
Pt is being d/c from skilled PT due to pt demonstrating high level of function and good safety awareness, and pain being the only limiting factor in her ability to perform functional mobility.
[2023-07-09] MEDS: OXYCODONE IR 5 MG TABLET PO (15:43)
--- NOTE | 2023-07-09 16:08 | PC.NURSE ---
ambulating independently in room, taking PO well, Abd dressing with several small drainage spots, medicated for pain PRN. Anticipating transfer to 204.
[2023-07-09] MEDS: OXYCODONE IR 10 MG TABLET PO ×2 (18:16→21:35)
[2023-07-09] MEDS: ACETAMINOPHEN 325 MG TABLET 650 MG PO (18:17)
[2023-07-09] MEDS: CELECOXIB 200 MG CAPSULE PO (21:35)
[2023-07-10] VITALS: O2SAT 96
[2023-07-10] MEDS: OXYCODONE IR 10 MG TABLET PO ×5 (00:34→12:31)
[2023-07-10 02:41] VITALS: BP 140/80; PULSE 70; RESP 17; TEMP 36.6; O2SAT 96
[2023-07-10 04:00] VITALS: O2SAT 96
[2023-07-10 05:11] VITALS: BP 174/114; PULSE 65; RESP 18; TEMP 36.2; O2SAT 95
[2023-07-10 08:57] VITALS: O2SAT 95
[2023-07-10] MEDS: SODIUM CHLORIDE 0.9% FLUSH 10 ML IV (08:57)
[2023-07-10] MEDS: CELECOXIB 200 MG CAPSULE PO (08:57)
[2023-07-10] MEDS: diphenhydrAMINE 25 MG TABLET PO (09:06)
--- NOTE | 2023-07-10 09:56 | PC.NURSE ---
Addendum entered by Ana Lilia Gomez R.N. 07/10/23 12:51: late note: lab was able to draw blood. during dc assessment pt was tearful again. pt asked for a doctors note for her work. Called Dr. Everett and left a message. patient decided to discharge. I notified patient that they can always access patient portal and the doctor can add notes there. Original Note: attempted to draw blood but I was only able to get a few drops, not enough blood per lab. Will re-draw.
[2023-07-10 10:00] VITALS: BP 165/105; PULSE 66; RESP 18; TEMP 36.4; O2SAT 96
[2023-07-10 10:31] LABS: Add Manual Diff / Slide Review NO; Basophils Absolute Auto 0 /uL (0-100); Basophils Percent Auto 0.4 % (0-2); Eosinophils Absolute Auto 100 /uL (0-450); Hematocrit 36.4 % (36-46); Hemoglobin 12.4 g/dL (12.0-16.0); Lymphocytes Absolute Auto 1300 /uL (1100-4500); Lymphocytes Percent Auto 17.4 % (25-40); Mean Corpuscular HGB Conc 34.2 % (30-36); Mean Corpuscular Hemoglobin 32.1 PG (26-34); Mean Corpuscular Volume 93.9 fL (80-100); Monocytes Absolute Auto 400 /uL (0-900); Monocytes Percent Auto 4.7 % (3-14); Neutrophils Absolute Auto 5900 /uL (1500-7000); Neutrophils Percent Auto 76.5 % (50-75); Platelet Count 217 X10^3/uL (150-400); Red Blood Cell Count 3.87 X10^6/uL (4.0-5.2); Red Cell Distribution Width 13.1 % (11.6-14.8); White Blood Cell Count 7.7 X10^3/uL (4.5-11.0)
[2023-07-10 10:46] LABS: BUN Creatinine Ratio 5.7 (6-22); Blood Urea Nitrogen 3 mg/dL (7-17); Calcium 9.1 mg/dL (8.4-10.2); Carbon Dioxide 28 mmol/L (22-32); Chloride 100 mmol/L (98-107); Estimated Glomerular Filt Rate > 60 mL/min (>60); Glucose 115 mg/dL (70-100); HEMOLYSIS 19 (0-50); Potassium 3.2 mmol/L (3.4-5.1); Sodium 136 mmol/L (137-145)
--- NOTE | 2023-07-10 11:13 | P.PN_ITS ---
Subjective Subjective Date Patient Seen: 07/10/23 Time Patient Seen: 11:13 Interval history: Tolerated liquids and solid food. Incisional pain. No emesis. Ambulatory Exam Vital Signs (past 8 hours): - 07/10/23 04:00 07/10/23 05:11 07/10/23 08:57 Temperature 97.2 F L Pulse Rate 65 Respiratory Rate 18 Blood Pressure 174/114 H Pulse Oximetry 96 95 Oxygen Delivery Method Room Air Room Air Oxygen Flow Rate 07/10/23 08:57 07/10/23 10:00 Temperature 97.6 F Pulse Rate 66 Respiratory Rate 18 Blood Pressure 165/105 H Pulse Oximetry 95 96 Oxygen Delivery Method Room Air Oxygen Flow Rate 0 0 Oxygen Delivery Method Room Air Oxygen Flow Rate 0 Narrative Exam Narrative: General adult woman alert oriented. Abdomen soft appropriately tender to palpation. Midline dressing is clean and intact. Objective Labs 07/10/23 10:15 07/10/23 10:15 Labs: Laboratory Results - last 24 hr 07/10/23 07/10/23 10:15 10:15 WBC 7.7 RBC 3.87 L Hgb 12.4 Hct 36.4 MCV 93.9 MCH 32.1 MCHC 34.2 RDW 13.1 Plt Count 217 Neut % (Auto) 76.5 H Lymph % (Auto) 17.4 L [place] % (Auto) 4.7 Eos % (Auto) 1.0 L Baso % (Auto) 0.4 Neut # (Auto) 5900 Lymph # (Auto) 1300 [place] # (Auto) 400 Eos # (Auto) 100 Baso # (Auto) 0 Sodium 136 L Potassium 3.2 L Chloride 100 Carbon Dioxide 28 BUN 3 L Creatinine 0.53 Estimated GFR > 60 BUN/Creatinine Ratio 5.7 L Glucose 115 H Calcium 9.1 PFSH Medical History Abscess Chronic abdominal pain Cyclic vomiting syndrome Family history of angioedema Marijuana use, continuous MRSA (methicillin resistant staph aureus) culture positive Pancreatitis Surgical History Hx of appendectomy Hx of cholecystectomy Family History Father Hypertension Mother Diabetes mellitus Daughter Angio-edema Other Colon cancer Social History household members: spouse Smoking Status: Current every day smoker alcohol intake: current Assessment & Plan Post-op Postoperative Procedures: Procedures Operation Date: 07/08/23 16:45 Actual Procedure Side Surgeon p Exploratory Laparotomy GEN José Miguel Everett MD Postoperative status narrative: 47-year-old woman postoperative day 2 status post exploratory laparotomy for intussusception with negative findings. She is recovering from the operation appropriately. Bowels are functioning. No further acute care needs and is stable for discharge home at this point.
--- NOTE | 2023-07-10 11:15 | P.DS_ITS ---
History of Present Illness History of Present Illness Chief complaint: cyclic vomiting Narrative: 47-year-old woman presented to the emergency department today with severe abdominal pain and emesis. She is been seen numerous times at this hospital's Emergency Department for cyclic vomiting and abdominal pain with no clear diagnosis. Today at admission laboratory studies demonstrate white blood cell count 9 with a left shift chemistry significant for potassium of 2.9, initial lactic acid 3.0 corrected after fluid resuscitation. CT abdomen pelvis demonstrates a small bowel small bowel intussusception. No free air or free fluid. From her chart notes she has been diagnosed with intussusception before but this has never been followed up on. Previous abdominal surgery includes appendectomy and cholecystectomy. At this time she is received Haldol to aid in nausea control and she is unable to provide further history. Discharge Providers Provider Date of admission: 07/08/23 13:59 Discharge Date: 07/10/23 Primary care physician: Joanna Storm MD Consults: 07/08/23 16:36 Consult to Director Social Routine Comment: 07/09/23 10:34 Consult to Physical Therapy Evaluate & Treat Comment: Physician Instructions: Evaluate and Treat Discharge provider: José Miguel Everett MD Summary Hospital Course Discharge Diagnosis: Intussusception? Hospital Course: She underwent exploratory laparotomy July 08. The small bowel was largely unremarkable there was slight dilation of the proximal small bowel is compared to the distal but there was no intussusception present or pathologic lead point. Postoperatively her diet was advanced as tolerated and at discharge she is ambulatory tolerating a diet. She will follow up in surgical clinic 2 weeks' time for staple removal. Status at Discharge Cognitive/behavioral status at discharge: oriented Functional status at discharge: independent ambulation Overall status at discharge: patient is progressing back to baseline Time Spent with Patient Time spent: Greater than 30 minutes Exam Vital Signs (past 8 hours): - 07/10/23 04:00 07/10/23 05:11 07/10/23 08:57 Temperature 97.2 F L Pulse Rate 65 Respiratory Rate 18 Blood Pressure 174/114 H Pulse Oximetry 96 95 Oxygen Delivery Method Room Air Room Air Oxygen Flow Rate 07/10/23 08:57 07/10/23 10:00 Temperature 97.6 F Pulse Rate 66 Respiratory Rate 18 Blood Pressure 165/105 H Pulse Oximetry 95 96 Oxygen Delivery Method Room Air Oxygen Flow Rate 0 0 Oxygen Delivery Method Room Air Oxygen Flow Rate 0 Narrative Exam Narrative: General adult woman alert oriented intermittently tearful Abdomen soft appropriately tender to palpation Extremities warm well perfused Objective Labs 07/10/23 10:15 07/10/23 10:15 Labs: Laboratory Results - last 24 hr 07/10/23 07/10/23 10:15 10:15 WBC 7.7 RBC 3.87 L Hgb 12.4 Hct 36.4 MCV 93.9 MCH 32.1 MCHC 34.2 RDW 13.1 Plt Count 217 Neut % (Auto) 76.5 H Lymph % (Auto) 17.4 L [place] % (Auto) 4.7 Eos % (Auto) 1.0 L Baso % (Auto) 0.4 Neut # (Auto) 5900 Lymph # (Auto) 1300 [place] # (Auto) 400 Eos # (Auto) 100 Baso # (Auto) 0 Sodium 136 L Potassium 3.2 L Chloride 100 Carbon Dioxide 28 BUN 3 L Creatinine 0.53 Estimated GFR > 60 BUN/Creatinine Ratio 5.7 L Glucose 115 H Calcium 9.1 PFSH Medical History Abscess Chronic abdominal pain Cyclic vomiting syndrome Family history of angioedema Marijuana use, continuous MRSA (methicillin resistant staph aureus) culture positive Pancreatitis Surgical History Hx of appendectomy Hx of cholecystectomy Family History Father Hypertension Mother Diabetes mellitus Daughter Angio-edema Other Colon cancer Social History household members: spouse Smoking Status: Current every day smoker alcohol intake: current Discharge Plan Discharge Plan Patient Disposition: Home Provider Discharge Comment: -Okay to shower tomorrow with dressing in place. -Okay to remove dressing in 1 week. -Do not submerge wounds in water until seen in follow-up. -No lifting >20 lbs x 4 weeks. -Walking only for exercise for 4 weeks. -No driving while taking narcotics. Discharge orders & Medications Prescriptions: New ibuprofen 200 mg tablet 400 mg PO Q6H Qty: 60 0RF acetaminophen [Tylenol] 325 mg capsule 650 mg PO QID PRN (Reason: pain) Qty: 60 0RF oxycodone 5 mg tablet 5 mg PO Q6H PRN (Reason: pain) Qty: 20 0RF Continued ondansetron 4 mg tablet,disintegrating 4 mg PO Q8H PRN (Reason: nausea and vomiting) Qty: 10 0RF promethazine 25 mg suppository 25 mg UT Q4-6H PRN (Reason: nausea and vomiting) Qty: 12 0RF Follow up/Referrals: Joanna Storm MD [Primary Care Provider] - José Miguel Everett MD [Physician] - 2 Weeks (Staple removal) Diet/Activity/Treatments Diet: Diet as Tolerated Skin/Wound/Dressing Care Report to your healthcare provider any signs of infection, such as:: chills, fe fiona, increased pain, unusual drainage and unusual redness Visit Report/Discharge Packet Instructions: DI for Exploratory Laparotomy, DI for Prescription Opioid Use, [facility]: Wound Care Stand Alone Forms: Patient Portal/API, Stroke Signs & Symptoms Discharge Data Primary Care Provider: Joanna Storm Discharges patient from system. Discharge Date/Time: 07/10/23 12:30
== END 2023-07-10 12:30 | disposition home or self-care (01) | DRG 229 ==
LOC: ED 13:58 → AC 13:59 → ICU 14:38 → AC 07-09 16:38
PROVIDERS: Admitting Provider Surgery; Emergency Provider Emergency Medicine; Family Provider Internal Medicine; PCP Internal Medicine; Referring Provider Emergency Medicine; Visit Provider Surgery
PROC: 0DJD0ZZ Inspection of Lower Intestinal Tract, Open Approach (ICD-10-PCS; CPT 49000; principal; 2023-07-08 16:45)
DX: K56.1 Intussusception (principal); E87.20 Acidosis, unspecified
CPT/HCPCS: 36415; 49000; 74177; 80048; 80053; 81001; 81025; 83605; 83690; 83735; 85025; 87633; 87797; 93005; 93010; 97161; 99222; 99285; J1170; J1630; J2060; J2250; J2405; J2543; J2704; J3010; Q9967

== ENCOUNTER 2023-07-13 10:34 | Emergency (ER) | payer OTHER, MEDICAID, SELFPAY ==
[2023-07-12 09:46] VITALS: PULSE 63; RESP 16; O2SAT 100; BMI 22.9
--- NOTE | 2023-07-13 10:44 | DI.CT.S_ITS ---
PROCEDURE: CT ABDOMEN PELVIS W CON INDICATIONS: abd pain, n/v recent abd surgery, ? intussecption on last visit TECHNIQUE: After the administration of intravenous contrast, axial sections acquired from the lung bases to the pubic symphysis. Coronal and sagittal reformats were performed. For radiation dose reduction, the following was used: automated exposure control, adjustment of mA and/or kV according to patient size. COMPARISON: [facility], CT, CT ABDOMEN PELVIS W CON, 07/08/2023, 12:34. FINDINGS: Image quality: Excellent. Lung bases: Small hiatal hernia with distal esophageal thickening. Heart: No significant findings. ABDOMEN: Liver: Unremarkable. Gallbladder: Absent. Biliary ducts: Within normal limits, status post cholecystectomy. Pancreas: Unremarkable. Spleen: Unremarkable. Adrenal Glands: Unremarkable. Kidneys and Ureters: Unremarkable. Stomach and Bowel: The entire large bowel may have diffuse wall thickening, although the bowel is under distended. Resolved intussusception in the jejunum. Colonic diverticulosis without evidence of diverticulitis. Peritoneum: No abnormal intraperitoneal fluid. No free air. Ventral Wall: No hernias. Abdominal Nodes: No retroperitoneal or mesenteric adenopathy by size criteria. Vessels: Aorta and inferior vena cava are normal in size. 2.4 centimeter splenic artery aneurysm. Dilated left gonadal vasculature. PELVIS: Pelvic Organs: IUD within the central uterus Bladder: Unremarkable. Pelvic Nodes: No enlarged lymph nodes. Miscellaneous: No hernias are seen. Bones: Unremarkable. IMPRESSION: Resolved jejunal intussusception, likely indicating a benign, transient process. Suspected pancolitis, commonly caused by C difficile. Alternatively, this wall thickening could be due to underdistention. Correlate with history of diarrhea. Stable 2.4 centimeter splenic artery aneurysm. Recommend vascular surgery referral. Small hiatal hernia and distal esophageal wall thickening. Esophagitis is suspected. Dictated by: Severino Santana M.D. on 07/13/2023 at 12:50 Approved by: Severino Santana M.D. on 07/13/2023 at 12:55
--- NOTE | 2023-07-13 10:46 | ED.ABDPAIN ---
HPI - Abdominal Pain General Chief Complaint: Abdominal Pain Stated Complaint: Abd px, n/v Time Seen by Provider: 07/13/23 10:40 Source: patient, EMS, RN notes reviewed and old records reviewed Mode of arrival: EMS Limitations: no limitations History of Present Illness HPI narrative: 47-year-old female with history of cyclic vomiting, abdominal migraines, splenic artery aneurysm along with recent suspected intussusception who had abdominal surgery on 07/08/2023 patient did not have active intussusception at that time or small bowel pathology but the small bowel was distinctly dilated in comparison to distal bowel suggesting may have had temporary intussusception. Patient states that she started have increased abdominal pain and vomiting today. States sudden onset similar to typical symptoms. She has been farting, she did have some small stool today. Patient incision appears to be healing well. Patient does not report any fevers. No chest pain or shortness of breath. She is quite uncomfortable on examination consistent with prior visits. Related Data Previous Rx's Medication Instructions Recorded promethazine 25 mg rectal 25 mg MS Q4-6H PRN nausea and 01/20/23 suppository vomiting #12 ea ondansetron 4 mg disintegrating 4 mg PO Q8H PRN nausea and 02/12/23 tablet vomiting #10 tabs acetaminophen 325 mg capsule 650 mg PO QID PRN pain #60 caps 07/10/23 (Tylenol) ibuprofen 200 mg tablet 400 mg PO Q6H #60 tabs 07/10/23 oxycodone 5 mg tablet 5 mg PO Q6H PRN pain #20 tabs 07/10/23 amoxicillin 875 mg-potassium 1 tab PO BID #14 tabs 07/13/23 clavulanate 125 mg tablet haloperidol 2 mg tablet 2 mg PO Q6H PRN nausea and 07/13/23 vomiting #10 tabs Allergies Allergy/AdvReac Type Severity Reaction Status Date / Time latex [LATEX] Allergy Unknown Verified 07/08/23 10:38 metoclopramide AdvReac Unknown DYSTONIA Verified 07/08/23 10:38 [METOCLOPRAMIDE] Review of Systems Review of Systems ROS Unobtainable: All systems reviewed & are unremarkable except as noted in HPI and below Patient History Medical History Abscess Chronic abdominal pain Cyclic vomiting syndrome Family history of angioedema Marijuana use, continuous MRSA (methicillin resistant staph aureus) culture positive Pancreatitis Surgical History Hx of appendectomy Hx of cholecystectomy Family History Father Hypertension Mother Diabetes mellitus Daughter Angio-edema Other Colon cancer Social History household members: spouse Smoking Status: Current every day smoker alcohol intake: current Smoking Status: Current every day smoker tobacco type: vaping alcohol intake frequency: 3 or more drinks per day Alcohol type: wine Substance Use Type: former substance user and marijuana Exam Narrative Exam Narrative: GENERAL: Alert and oriented x three, female in moderate distress. Patient appears quite uncomfortable sitting up in the bed and dry heaving. HEENT: Head normocephalic, atraumatic, EOMI, pupils reactive, face symmetric, moist mucous membranes NECK: Supple, full range of motion CARDIOVASCULAR: Regular rate and rhythm without murmurs, rubs or gallops. RESPIRATORY: Breath sounds equal bilaterally, no wheezes rales or rhonchi. ABDOMEN: Soft, generalized tenderness. Nondistended. Patient has been line ventral incision which appears clean dry and intact, nehal are in place. There is no warmth erythema or other skin changes there is some mild ecchymosis surrounding. No hematoma palpated. Normoactive bowel sounds all 4 quadrants. No guarding or rebound, rigidity, no mass, patient did have flatulence while I was examining her and states she also had a little bit of stool out at the same time. : No CVA tenderness EXTREMITIES: Normal range of motion, no clubbing or edema. Neurovascularly intact NEUROLOGICAL: Cranial nerves II through XII grossly intact. Moving all extremities SKIN: Warm, dry, no petechiae, no rashes or lesions. Initial Vital Signs Initial Vital Signs: Vital Signs Temperature 98.0 F 07/13/23 11:12 Pulse Rate 92 H 07/13/23 11:12 Respiratory Rate 10 L 07/13/23 11:12 Blood Pressure 178/104 H 07/13/23 11:12 Pulse Oximetry 100 07/13/23 11:12 Oxygen Delivery Method Room Air 07/13/23 11:12 Course Orders Ordered: Discontinued Medications Diphenhydramine HCl (Diphenhydramine 50 Mg/Ml Vial) 50 mg IV NOW ONE Stop: 07/13/23 10:46 Last Admin: 07/13/23 12:20 Dose: 50 mg Documented By: KORI Haloperidol (Haloperidol 5 Mg/Ml Vial) 5 mg IV NOW ONE Stop: 07/13/23 10:41 Last Admin: 07/13/23 12:21 Dose: 5 mg Documented By: KORI Lactated Ringer's (Lactated Ringers) 1,000 mls @ 1,000 mls/hr IV BOLUS ONE Stop: 07/13/23 11:44 Last Infusion: 07/13/23 12:59 Dose: 0 mls/hr Documented By: Admin: 07/13/23 11:37 Dose: 1,000 mls/hr Documented By: KORI Lactated Ringer's (Lactated Ringers) 1,000 mls @ 1,000 mls/hr IV BOLUS ONE Stop: 07/13/23 13:59 Last Infusion: 07/13/23 14:45 Dose: 0 mls/hr Documented By: Admin: 07/13/23 13:04 Dose: 1,000 mls/hr Documented By: KORI Lactated Ringer's (Lactated Ringers) 1,000 mls @ 250 mls/hr IV CONT LINDA Last Infusion: 07/13/23 20:07 Dose: 0 mls/hr Documented By: Admin: 07/13/23 15:22 Dose: 250 mls/hr Documented By: KORI Pantoprazole Sodium (Pantoprazole 40 Mg Vial) 40 mg IV NOW ONE Stop: 07/13/23 10:41 Last Admin: 07/13/23 11:41 Dose: 40 mg Documented By: KORI Vital Signs Vital signs: Vital Signs - 8 hr 07/13/23 11:12 Temperature 98.0 F Pulse Rate 92 H Respiratory Rate 10 L Blood Pressure 178/104 H Pulse Oximetry 100 Oxygen Delivery Method Room Air MDM - Abdominal Pain Lab Data 07/13/23 10:44 07/13/23 12:13 Labs: Lab Results 07/13/23 07/13/23 07/13/23 Range/Units 10:44 10:44 12:13 WBC 8.3 (4.5-11.0) X10^3/uL RBC 4.30 (4.0-5.2) X10^6/uL Hgb 13.8 (12.0-16.0) g/dL Hct 39.7 (36-46) % MCV 92.4 (80-100) fL MCH 32.0 (26-34) PG MCHC 34.7 (30-36) % RDW 12.9 (11.6-14.8) % Plt Count 346 (150-400) X10^3/uL Neut % (Auto) 82.1 H (50-75) % Lymph % (Auto) 13.0 L (25-40) % Fisher % (Auto) 3.9 (3-14) % Eos % (Auto) 0.4 L (2-4) % Baso % (Auto) 0.6 (0-2) % Neut # (Auto) 6800 (4817-1508) /uL Lymph # (Auto) 1100 (6683-6832) /uL Fisher # (Auto) 300 (0-900) /uL Eos # (Auto) 0 (0-450) /uL Baso # (Auto) 100 (0-100) /uL Sodium 136 L (137-145) mmol/L Potassium 3.1 L (3.4-5.1) mmol/L Chloride 106 (98-107) mmol/L Carbon Dioxide 21 L (22-32) mmol/L BUN 10 (7-17) mg/dL Creatinine 0.46 L (0.52-1.04) mg/dL Estimated GFR > 60 (>60) mL/min BUN/Creatinine Ratio 21.7 (6-22) Glucose 125 H (70-100) mg/dL Lactate 3.0 H (0.7-2.1) mmol/L Calcium 7.7 L (8.4-10.2) mg/dL Total Bilirubin 0.8 (0.2-1.3) mg/dL AST 29 (14-36) IU/L ALT 29 (<35) IU/L Alkaline Phosphatase 91 (38-126) U/L Total Protein 6.8 (6.3-8.2) g/dL Albumin 3.5 (3.5-5.0) g/dL Globulin 3.3 (1.7-4.1) g/dL Albumin/Globulin Ratio 1.1 (1.0-2.8) Lipase 34 D (23-300) U/L Stl C. cayetanensis PCR (Not Detect) Stool Rotavirus (PCR) (Not Detect) Stool Adenovirus (PCR) (Not Detect) Stool Astrovirus (PCR) (Not Detect) Stool Cryptosporidium PCR (Not Detect) Stl E.coli Shiga Tox PCR (Not Detect) St Sh/Enteroin Ecoli PCR (Not Detect) Stool E coli O157 PCR Stl Enterotoxigenic E PCR (Not Detect) Stool EPEC (PCR) (Not Detect) Stl E. histolytica PCR (Not Detect) Stool Giardia Lamblia PCR (Not Detect) Stool Sapovirus (PCR) (Not Detect) Stl P. shigelloides PCR (Not Detect) St Y.enterocolitica PCR (Not Detect) Stool Vibrio (PCR) (Not Detect) Stl Vibrio cholerae PCR (Not Detect) Stl Enteroaggr Ecoli PCR (Not Detect) Stl Norovirus GI/GII PCR (Not Detect) Campylobacter (PCR) (Not Detect) C. difficile Tox (PCR) (Not Detect) Salmonella (PCR) (Not Detect) 07/13/23 Range/Units 15:29 WBC (4.5-11.0) X10^3/uL RBC (4.0-5.2) X10^6/uL Hgb (12.0-16.0) g/dL Hct (36-46) % MCV (80-100) fL MCH (26-34) PG MCHC (30-36) % RDW (11.6-14.8) % Plt Count (150-400) X10^3/uL Neut % (Auto) (50-75) % Lymph % (Auto) (25-40) % Fisher % (Auto) (3-14) % Eos % (Auto) (2-4) % Baso % (Auto) (0-2) % Neut # (Auto) (0996-8556) /uL Lymph # (Auto) (9703-5177) /uL Fisher # (Auto) (0-900) /uL Eos # (Auto) (0-450) /uL Baso # (Auto) (0-100) /uL Sodium (137-145) mmol/L Potassium (3.4-5.1) mmol/L Chloride (98-107) mmol/L Carbon Dioxide (22-32) mmol/L BUN (7-17) mg/dL Creatinine (0.52-1.04) mg/dL Estimated GFR (>60) mL/min BUN/Creatinine Ratio (6-22) Glucose (70-100) mg/dL Lactate (0.7-2.1) mmol/L Calcium (8.4-10.2) mg/dL Total Bilirubin (0.2-1.3) mg/dL AST (14-36) IU/L ALT (<35) IU/L Alkaline Phosphatase (38-126) U/L Total Protein (6.3-8.2) g/dL Albumin (3.5-5.0) g/dL Globulin (1.7-4.1) g/dL Albumin/Globulin Ratio (1.0-2.8) Lipase (23-300) U/L Stl C. cayetanensis PCR Not detected (Not Detect) Stool Rotavirus (PCR) Not detected (Not Detect) Stool Adenovirus (PCR) Not detected (Not Detect) Stool Astrovirus (PCR) Not detected (Not Detect) Stool Cryptosporidium PCR Not detected (Not Detect) Stl E.coli Shiga Tox PCR Not detected (Not Detect) St Sh/Enteroin Ecoli PCR Not detected (Not Detect) Stool E coli O157 PCR Not Reportable Stl Enterotoxigenic E PCR Not detected (Not Detect) Stool EPEC (PCR) Not detected (Not Detect) Stl E. histolytica PCR Not detected (Not Detect) Stool Giardia Lamblia PCR Not detected (Not Detect) Stool Sapovirus (PCR) Not detected (Not Detect) Stl P. shigelloides PCR Not detected (Not Detect) St Y.enterocolitica PCR Not detected (Not Detect) Stool Vibrio (PCR) Not detected (Not Detect) Stl Vibrio cholerae PCR Not detected (Not Detect) Stl Enteroaggr Ecoli PCR Not detected (Not Detect) Stl Norovirus GI/GII PCR Not detected (Not Detect) Campylobacter (PCR) Not detected (Not Detect) C. difficile Tox (PCR) Not detected (Not Detect) Salmonella (PCR) Not detected (Not Detect) Imaging Data CT scan - abdomen/pelvis: Radiologist's Impression: Basoco,Rhonda A??47??F??1975 ? Allergy/Adv: latex, metoclopramide Close Chest X-Ray (Signed) Severino Santana - 07/13/23 Abdomen/Pelvis CT (Signed) MaxSeverino - 07/13/23 Telemetry Strips 07/08/23 Abdomen/Pelvis CT (Signed) Kade Mackey - 07/08/23 Abdomen X-Ray (Signed) Pramod Vargas - 01/20/23 Radiology Report (Cancelled) Denise Mcrae - 10/19/22 Myocardial Perfusion Scan Nuc Med (Signed) Geoiwal,Vidhu - 10/19/22 Chest X-Ray (Signed) Tyree Rodas - 10/16/22 Telemetry Strips 10/15/22 Telemetry Strips 10/15/22 Chest X-Ray (Signed) Devin Ambriz - 10/15/22 Telemetry Strips 07/24/22 Abdomen/Pelvis CT (Signed) Marbin Vasquez - 07/24/22 Echocardiogram Ultrasound (Signed) Denise Mcrae - 07/01/22 Chest X-Ray (Signed) Jaime Kapadia - 06/30/22 ECHO-Doppler Report 06/30/22 Telemetry Strips 02/12/22 Abdomen/Pelvis CT (Signed) Kade Mackey - 02/12/22 Shoulder MRI (Signed) Yaw Andujar - 03/21/21 Cervical Spine MRI (Signed) Muriel Peña - 03/21/21 Wrist X-Ray (Signed) Chuck Mcgraw - 12/18/20 Tibia/Fibula X-Ray (Signed) Chuck Mcgraw - 12/18/20 Finger X-Ray (Signed) Daisha Schmidt - 05/16/20 Cardiac Catheterization Report 11/06/19 Launch?[place] [address] CT Scan Report Signed Patient: Rhonda Yadav MR#: [id number] : 1975 Acct:[id number] Age/Sex: 47 / F Date of Service: 07/13/23 Loc: ED Accession Number: [id number] ?? Procedure: CT abdomen pelvis w con Ordering Provider: Janis Saxena D.O. PROCEDURE:? CT ABDOMEN PELVIS W CON ? INDICATIONS:? abd pain, n/v recent abd surgery, ? intussecption on last visit ? TECHNIQUE:? After the administration of intravenous contrast, axial sections acquired from the lung bases to the pubic symphysis.? Coronal and sagittal reformats were performed.? For radiation dose reduction, the following was used:? automated exposure control, adjustment of mA and/or kV according to patient size.? ? COMPARISON:? [facility], CT, CT ABDOMEN PELVIS W CON, 07/08/2023, 12:34. ? FINDINGS:? Image quality:? Excellent.? ? Lung bases:? Small hiatal hernia with distal esophageal thickening. Heart:? No significant findings. ? ABDOMEN: Liver:? Unremarkable.? ? Gallbladder:? Absent.? ? Biliary ducts:? Within normal limits, status post cholecystectomy. Pancreas:? Unremarkable.? ? Spleen:? Unremarkable.? ? Adrenal Glands:? Unremarkable.? ? Kidneys and Ureters:? Unremarkable.? ? ? Stomach and Bowel:? The entire large bowel may have diffuse wall thickening, although the bowel is under distended.? Resolved intussusception in the jejunum. Colonic diverticulosis without evidence of diverticulitis. Peritoneum:? No abnormal intraperitoneal fluid.? No free air.? ? Ventral Wall: ? No hernias.? Abdominal Nodes:? No retroperitoneal or mesenteric adenopathy by size criteria.? Vessels:? Aorta and inferior vena cava are normal in size.? 2.4 centimeter splenic artery aneurysm.? Dilated left gonadal vasculature. ? PELVIS: Pelvic Organs:? IUD within the central uterus Bladder:? Unremarkable.? ? Pelvic Nodes: No enlarged lymph nodes.? Miscellaneous: No hernias are seen. ? ? ? Bones:? Unremarkable.? IMPRESSION:? Resolved jejunal intussusception, likely indicating a benign, transient process. ? Suspected pancolitis, commonly caused by C difficile.? Alternatively, this wall thickening could be due to underdistention.? Correlate with history of diarrhea.? ? Stable 2.4 centimeter splenic artery aneurysm.? Recommend vascular surgery referral. ? Small hiatal hernia and distal esophageal wall thickening.? Esophagitis is suspected. ? ? Dictated by: Severino Santana M.D. on 07/13/2023 at 12:50 ? ? Approved by: Severino Santana M.D. on 07/13/2023 at 12:55?? Chest x-ray: Radiologist's Impression: Close Chest X-Ray (Signed) Severino Santana - 07/13/23 Abdomen/Pelvis CT (Signed) Severino Santana - 07/13/23 Telemetry Strips 07/08/23 Abdomen/Pelvis CT (Signed) Kade Mackey - 07/08/23 Abdomen X-Ray (Signed) Pramod Vargas - 01/20/23 Radiology Report (Cancelled) Oanh Mcraeu - 10/19/22 Myocardial Perfusion Scan Nuc Med (Signed) Paliwal,Vidhu - 10/19/22 Chest X-Ray (Signed) Tyree Rodas - 10/16/22 Telemetry Strips 10/15/22 Telemetry Strips 10/15/22 Chest X-Ray (Signed) Devin Ambriz - 10/15/22 Telemetry Strips 07/24/22 Abdomen/Pelvis CT (Signed) Marbin Vasquez - 07/24/22 Echocardiogram Ultrasound (Signed) Denise Mcrae - 07/01/22 Chest X-Ray (Signed) Jaime Kapadia - 06/30/22 ECHO-Doppler Report 06/30/22 Telemetry Strips 02/12/22 Abdomen/Pelvis CT (Signed) Kade Mackey - 02/12/22 Shoulder MRI (Signed) Yaw Andujar - 03/21/21 Cervical Spine MRI (Signed) Muriel Peña - 03/21/21 Wrist X-Ray (Signed) Chuck Mcgraw - 12/18/20 Tibia/Fibula X-Ray (Signed) Chuck Mcgraw - 12/18/20 Finger X-Ray (Signed) Daisha Schmidt - 05/16/20 Cardiac Catheterization Report 11/06/19 [place] [address] XRay Report Signed Patient: Rhonda Yadav MR#: [id number] : 1975 Acct:[id number] Age/Sex: 47 / F Date of Service: 07/13/23 Loc: ED Accession Number: [id number] ?? Procedure: XR chest 1V Ordering Provider: Janis Saxena D.O. PROCEDURE:? XR CHEST 1V ? INDICATIONS:? sob ? TECHNIQUE:? One view of the chest was acquired.? ? COMPARISON:? [facility], CR, XR CHEST 1V, 10/16/2022, 14:13.? [facility], CR, XR CHEST 1V, 10/15/2022, 20:32. ? FINDINGS:? ? Surgical changes and devices:? None.? ? Lungs and pleura:? Lungs are clear.? No pleural effusions or pneumothorax.? Prominent right nipple shadow. ? Mediastinum:? Mediastinal contours appear normal.? Heart size is normal.? ? Bones and chest wall:? No suspicious bony lesions.? Contrast within the left upper extremity. ? IMPRESSION:? No acute cardiopulmonary process. ? Contrast within the left upper extremity, likely contrast extravasation from same-day CT. ? ? ? Dictated by: Severino Santana M.D. on 07/13/2023 at 12:48 ? ? Approved by: Severino Santana M.D. on 07/13/2023 at 12:49?? ECG Data Attestation: I personally reviewed and interpreted this ECG as follows: Interpretation: Normal sinus rhythm rate 88 MS 150 QRS 82 QTC of 491. No acute ST elevation depression noted. Nonspecific change. MDM Narrative Medical decision making narrative: Patient recurrence was abdominal pain nausea and vomiting similar some recent episodes but had recent abdominal surgery for possible intussusception. Patient's labs shows slight hypokalemia, lactate was 3 had difficulty repeating patient is often difficult lab draw but had quite a bit of improvement during stay so was held. Patient received Haldol and Benadryl which was quite helpful. She has been sleeping and not had any more nausea or vomiting since then. CT abdomen pelvis did not show recurrent intussusception, splenic artery appears stable, does show some pancolitis this can be inflammatory versus infectious. She was having diarrhea here in the department was negative on GI panel. Discussed with patient and family states he would like to try similar medications as given here for her symptoms to try to avoid narcotics. Patient still quite sleepy but felt safe for discharge. Discussed with patient and family they can continue to observe here in the department for longer if they would like. We did discuss if she is having persistent vomiting, develops fevers or other changes she needs to be admitted for observation. Their goal at this time is discharge home. Discharge Plan Departure Patient Disposition: Home Clinical Impression: Nausea and vomiting, Hx of abdominal surgery Activity Restrictions/Additional Instructions: Please follow up with Dr. Everett this week, please call for an appointment. There is no clear signs of intussusception on your imaging today. You do have pancolitis or inflammation throughout the colon itself. Take antibiotic until completed. You may take Haldol 2.5 mg every 4-6 hours as needed for symptoms. You can take 1 or 2 tablets Benadryl (Diphenhydramine) with this medication every 6 hours as needed for vomiting. Prescription sent to [facility]. Please return for fevers, worsening abdominal back or flank pain, persistent vomiting, black or bloody stools or other new or concerning changes. Prescriptions: New amoxicillin-pot clavulanate 875-125 mg tablet 1 tab PO BID Qty: 14 0RF haloperidol 2 mg tablet 2 mg PO Q6H PRN (Reason: nausea and vomiting) Qty: 10 0RF No Action ondansetron 4 mg tablet,disintegrating 4 mg PO Q8H PRN (Reason: nausea and vomiting) Qty: 10 0RF ibuprofen 200 mg tablet 400 mg PO Q6H Qty: 60 0RF acetaminophen [Tylenol] 325 mg capsule 650 mg PO QID PRN (Reason: pain) Qty: 60 0RF oxycodone 5 mg tablet 5 mg PO Q6H PRN (Reason: pain) Qty: 20 0RF promethazine 25 mg suppository 25 mg MS Q4-6H PRN (Reason: nausea and vomiting) Qty: 12 0RF Referrals: Joanna Storm MD [Primary Care Provider] - José Miguel Everett MD [Physician] - Stand Alone Forms: Patient Portal/API
--- NOTE | 2023-07-13 11:05 | DI.RAD.S_ITS ---
PROCEDURE: XR CHEST 1V INDICATIONS: sob TECHNIQUE: One view of the chest was acquired. COMPARISON: [facility], CR, XR CHEST 1V, 10/16/2022, 14:13. [facility], CR, XR CHEST 1V, 10/15/2022, 20:32. FINDINGS: Surgical changes and devices: None. Lungs and pleura: Lungs are clear. No pleural effusions or pneumothorax. Prominent right nipple shadow. Mediastinum: Mediastinal contours appear normal. Heart size is normal. Bones and chest wall: No suspicious bony lesions. Contrast within the left upper extremity. IMPRESSION: No acute cardiopulmonary process. Contrast within the left upper extremity, likely contrast extravasation from same-day CT. Dictated by: Severino Satnana M.D. on 07/13/2023 at 12:48 Approved by: Severino Santana M.D. on 07/13/2023 at 12:49
[2023-07-13 11:12] VITALS: BP 178/104; PULSE 92; RESP 10; TEMP 36.7; O2SAT 100; BMI 22.9
[2023-07-13 11:27] LABS: Add Manual Diff / Slide Review NO; Basophils Absolute Auto 100 /uL (0-100); Basophils Percent Auto 0.6 % (0-2); Eosinophils Absolute Auto 0 /uL (0-450); Eosinophils Percent Auto 0.4 % (2-4); Hematocrit 39.7 % (36-46); Hemoglobin 13.8 g/dL (12.0-16.0); Lymphocytes Absolute Auto 1100 /uL (1100-4500); Mean Corpuscular HGB Conc 34.7 % (30-36); Mean Corpuscular Volume 92.4 fL (80-100); Monocytes Absolute Auto 300 /uL (0-900); Monocytes Percent Auto 3.9 % (3-14); Neutrophils Absolute Auto 6800 /uL (1500-7000); Neutrophils Percent Auto 82.1 % (50-75); Platelet Count 346 X10^3/uL (150-400); Red Cell Distribution Width 12.9 % (11.6-14.8); White Blood Cell Count 8.3 X10^3/uL (4.5-11.0)
[2023-07-13] MEDS: LACTATED RINGERS 1,000 ML 1000 ML IV ×2 (11:37→13:04)
[2023-07-13] MEDS: PANTOPRAZOLE 40 MG VIAL IV (11:41)
[2023-07-13 12:12] LABS: Alanine Aminotransferase 29 IU/L (<35); Albumin 3.5 g/dL (3.5-5.0); Albumin Globulin Ratio 1.1 (1.0-2.8); Alkaline Phosphatase 91 U/L (38-126); Aspartate Aminotransferase 29 IU/L (14-36); BUN Creatinine Ratio 21.7 (6-22); Bilirubin Total 0.8 mg/dL (0.2-1.3); Blood Urea Nitrogen 10 mg/dL (7-17); Calcium 7.7 mg/dL (8.4-10.2); Carbon Dioxide 21 mmol/L (22-32); Chloride 106 mmol/L (98-107); Estimated Glomerular Filt Rate > 60 mL/min (>60); Globulin 3.3 g/dL (1.7-4.1); Glucose 125 mg/dL (70-100); Lipase 34 U/L (23-300); Sodium 136 mmol/L (137-145); Total Protein 6.8 g/dL (6.3-8.2)
[2023-07-13 12:13] LABS: HEMOLYSIS 60 (0-50)
[2023-07-13 12:14] LABS: Potassium 3.1 mmol/L (3.4-5.1)
[2023-07-13] MEDS: diphenhydrAMINE 50 MG/ML VIAL IV (12:20)
[2023-07-13] MEDS: HALOPERIDOL 5 MG/ML VIAL IV (12:21)
[2023-07-13 13:20] LABS: Reflexed Lactate in 2 Hours Y
[2023-07-13] MEDS: LACTATED RINGERS 1,000 ML 250 ML IV (15:22)
[2023-07-13 17:38] LABS: Adenovirus F 40/41 Not Detected (Not Detect); Astrovirus Not Detected (Not Detect); Campylobacter Not Detected (Not Detect); Clostridium difficile toxin AB Not Detected (Not Detect); Cryptosporidium Not Detected (Not Detect); Cyclospora cayetanensis Not Detected (Not Detect); Entamoeba histolytica Not Detected (Not Detect); Enteroaggregative E.coli Not Detected (Not Detect); Enteropathogenic E.coli Not Detected (Not Detect); Enterotoxigenic E.coli It/st Not Detected (Not Detect); Giardia lamblia Not Detected (Not Detect); Norovirus GI/GII Not Detected (Not Detect); Plesiomonsa shigelloides Not Detected (Not Detect); Rotavirus A Not Detected (Not Detect); Salmonella Not Detected (Not Detect); Sapovirus Not Detected (Not Detect); Shiga-like toxin-prod E.coli Not Detected (Not Detect); Shigella/Enteroinvasive E.coli Not Detected (Not Detect); Vibrio Not Detected (Not Detect); Vibrio cholerae Not Detected (Not Detect); Yersinia enterocolitica Not Detected (Not Detect)
--- NOTE | 2023-07-13 20:08 | PC.NURSE ---
could not obtain repeat lactate. provider aware. no new orders to obtain lactate
[2023-07-13 21:22] VITALS: BP 117/76; PULSE 91; RESP 14; TEMP 36.9; O2SAT 96
== END 2023-07-13 21:26 | disposition home or self-care (01) ==
PROVIDERS: Emergency Provider Emergency Medicine; Family Provider Internal Medicine; PCP Internal Medicine
DX: Z98.890 Other specified postprocedural states (principal); R11.2 Nausea with vomiting, unspecified; R06.02 Shortness of breath; R10.9 Unspecified abdominal pain
CPT/HCPCS: 71045; 74177; 80053; 83605; 83690; 85025; 87507; 93005; 96361; 96374; 96375; 99284; C9113; J1200; J1630; Q9967

== ENCOUNTER 2023-08-04 12:13 | Emergency (ER) | payer OTHER, MEDICAID, SELFPAY ==
[2023-07-12 09:46] VITALS: PULSE 63; RESP 16; O2SAT 100; BMI 22.9
[2023-08-04] VITALS (13 sets, daily range): BP systolic 104–198; BP diastolic 61–113; PULSE 66–86; RESP 22–27; TEMP 36.4; O2SAT 96–100; BMI 21.5
--- NOTE | 2023-08-04 12:15 | ED_ITS ---
HPI - Abdominal Pain General Chief Complaint: Nausea/Vomiting/Diarrhea Stated Complaint: Cyclical vomiting,surgery here 3 wks ago Time Seen by Provider: 08/04/23 12:15 History of Present Illness HPI narrative: Patient is a 47-year-old female with a history of cyclic vomiting syndrome. She presents with onset of severe nausea vomiting about 5:00 a.m. this morning. She has a history of cyclic vomiting, abdominal migraines, splenic artery aneurysm along with recent suspected intussusception who had abdominal surgery on 07/08/2023 patient did not have active intussusception at that time or small bowel pathology but the small bowel was distinctly dilated in comparison to distal bowel suggesting may have had temporary intussusception. She returned on 1522 with recurrence of abdominal pain and vomiting. CT was interpreted does resolved jejunal intussusception. She was well until 5:00 a.m. this morning. She is had no fever or chills. She is no hematemesis with vomiting. She denies diarrhea. She is no back pain, no dysuria. CT at that time raise the suspicion for esophagitis. She was prescribed a combination of Haldol and Benadryl to control her symptoms. She arrives by EMS, she received Zofran 8 mg IV EN route. She is under poor personal control, vomiting violently upon arrival. Related Data Previous Rx's Medication Instructions Recorded promethazine 25 mg rectal 25 mg NJ Q4-6H PRN nausea and 01/20/23 suppository vomiting #12 ea ondansetron 4 mg disintegrating 4 mg PO Q8H PRN nausea and 02/12/23 tablet vomiting #10 tabs acetaminophen 325 mg capsule 650 mg PO QID PRN pain #60 caps 07/10/23 (Tylenol) ibuprofen 200 mg tablet 400 mg PO Q6H #60 tabs 07/10/23 haloperidol 2 mg tablet 2 mg PO Q6H PRN nausea and 07/13/23 vomiting #10 tabs ondansetron 4 mg disintegrating 4 mg PO Q4H PRN nausea and 08/04/23 tablet vomiting 3 doses #30 tabs promethazine 12.5 mg tablet 12.5 mg PO Q6H PRN nausea and 08/04/23 vomiting #30 tabs Allergies Allergy/AdvReac Type Severity Reaction Status Date / Time latex [LATEX] Allergy Unknown Verified 08/04/23 12:23 metoclopramide AdvReac Unknown DYSTONIA Verified 08/04/23 12:23 [METOCLOPRAMIDE] Review of Systems Constitutional Constitutional: Denies body ache(s), Denies chills, Denies fever(s), Denies headache(s) and Denies malaise ENT Ears, Nose, Mouth, and Throat: Denies vertigo, Denies dizziness, Denies headache(s) and Denies mouth pain Cardiovascular Cardiovascular: Denies chest pain, Denies syncope and Denies dyspnea on exertion Respiratory Respiratory: Denies cough and Denies dyspnea on exertion Gastrointestinal Gastrointestinal: Reports as per HPI Genitourinary Genitourinary: Denies dysuria Musculoskeletal Musculoskeletal: Denies back pain Integumentary/Breasts Skin/Breast: Denies lesions and Denies rash Neurologic Neurologic: Denies confusion, Denies vertigo, Denies dizziness, Denies syncope and Denies headache(s) Psychiatric Psychiatric: Denies confusion Hematologic/Lymphatic On Anticoagulants: No Patient History Medical History Abscess Chronic abdominal pain Cyclic vomiting syndrome Family history of angioedema Marijuana use, continuous MRSA (methicillin resistant staph aureus) culture positive Pancreatitis Surgical History Hx of appendectomy Hx of cholecystectomy Family History Father Hypertension Mother Diabetes mellitus Daughter Angio-edema Other Colon cancer Social History household members: spouse Smoking Status: Current every day smoker alcohol intake: current Smoking Status: Current every day smoker tobacco type: vaping alcohol intake frequency: 3 or more drinks per day Alcohol type: wine Substance Use Type: former substance user and marijuana Exam Initial Vital Signs Initial Vital Signs: Vital Signs Temperature 97.5 F L 08/04/23 11:48 Pulse Rate 66 08/04/23 11:48 Respiratory Rate 22 08/04/23 11:48 Blood Pressure 171/101 H 08/04/23 11:48 Pulse Oximetry 97 08/04/23 11:48 Oxygen Delivery Method Room Air 08/04/23 11:48 Const General: anxious and other (Thrashing about) Nutritional Appearance: average body habitus Limitations: no physical limitations [facility] Head: normal to inspection, normocephalic and atraumatic Mouth: oral mucosae normal and oropharynx normal Throat: posterior oropharynx normal Eyes General: Yes appearance normal, both eyes and all related structures Neck Neck: normal visual inspection and full ROM Resp Auscultation: clear to auscultation bilaterally Cardio Rate: regular rate Rhythm: regular rhythm Heart Sounds: S1 normal, S2 normal and no murmurs GI Other: Flat. Mild epigastric tenderness. No distention. Normal bowel sounds. No guarding or rebound. Back/Spine/Pelvis Back: normal to inspection Skin General: no rashes or lesions noted Neuro General: patient alert, patient awake and patient oriented x3 Motor: muscle tone normal throughout Sensory Exam: no sensory deficits noted Extrem General: normal to inspection, no pedal edema and no calf tenderness Psych Appearance: disheveled Speech and Movement: agitated Mood: anxious mood Course Course Course Narrative: Patient is well-known this facility, with multiple visits. She last consumed marijuana yesterday. She denies any possible relationship between marijuana in the cyclic vomiting. IV was established by paramedics prior to arrival, she would received Zofran and transport. Vomiting persist. I gave her a combination promethazine, IV Haldol, and IV Ativan. She was able to sleep for 4 hours. There was no additional nausea or vomiting. She is now awake, an upright. She agreed to promethazine. Zofran was also prescribed. I have advised her to take a Zofran ODT prior to taking the promethazine tablets. We discussed GI follow-up. She feels she gives no information from them. I suggested she talk to her PCM and perhaps her PCM could have a conversation with Gastroenterology regarding treatment plan. Orders Ordered: ED Orders 08/04/23 13:00 Ammonia (NH3) Stat Complete Blood Count AUTO DIFF Stat Comprehensive Metabolic Panel Stat Lipase Stat Discontinued Medications Haloperidol (Haloperidol 5 Mg/Ml Vial) 5 mg IV NOW ONE Stop: 08/04/23 12:25 Last Admin: 08/04/23 12:35 Dose: 5 mg Documented By: CTS Sodium Chloride (Normal Saline 0.9%) 1,000 mls @ 1,000 mls/hr IV BOLUS ONE Stop: 08/04/23 13:23 Last Infusion: 08/04/23 14:09 Dose: 0 mls/hr Documented By: Admin: 08/04/23 12:36 Dose: 1,000 mls/hr Documented By: AYAKA Sodium Chloride (Normal Saline 0.9%) 1,000 mls @ 250 mls/hr IV CONT LINDA Last Infusion: 08/04/23 17:25 Dose: 250 mls/hr Documented By: Admin: 08/04/23 16:22 Dose: 250 mls/hr Documented By: CHRISTOPHER Lorazepam (Lorazepam 2 Mg/Ml Inj) 2 mg IV NOW ONE Stop: 08/04/23 12:25 Last Admin: 08/04/23 12:35 Dose: 2 mg Documented By: AYAKA Ondansetron HCl (Ondansetron 4 Mg Odt) 4 mg SL NOW ONE Stop: 08/04/23 17:32 Last Admin: 08/04/23 17:33 Dose: 4 mg Documented By: CHRISTOPHER Promethazine HCl (Promethazine 25 Mg Tablet) 12.5 mg PO NOW ONE Stop: 08/04/23 12:25 Last Admin: 08/04/23 13:00 Dose: Not Given Documented By: AYAKA Vital Signs Vital signs: Vital Signs - 8 hr 08/04/23 11:48 08/04/23 12:19 08/04/23 12:22 Temperature 97.5 F L Pulse Rate 66 82 Respiratory Rate 22 Blood Pressure 171/101 H Pulse Oximetry 97 96 100 Oxygen Delivery Method Room Air 08/04/23 12:22 08/04/23 12:30 08/04/23 12:30 Temperature Pulse Rate 79 Respiratory Rate 24 Blood Pressure 171/101 H 197/103 H Pulse Oximetry 100 Oxygen Delivery Method 08/04/23 13:00 08/04/23 13:00 08/04/23 13:30 Temperature Pulse Rate 79 Respiratory Rate 27 H Blood Pressure 191/99 H 197/105 H Pulse Oximetry 100 Oxygen Delivery Method 08/04/23 13:30 08/04/23 14:00 08/04/23 14:00 Temperature Pulse Rate 82 83 Respiratory Rate 22 24 Blood Pressure 187/111 H Pulse Oximetry 100 100 Oxygen Delivery Method 08/04/23 14:30 08/04/23 14:30 08/04/23 15:00 Temperature Pulse Rate 83 Respiratory Rate 24 Blood Pressure 179/84 H 158/77 H Pulse Oximetry 100 Oxygen Delivery Method 08/04/23 15:00 08/04/23 15:30 08/04/23 15:30 Temperature Pulse Rate 84 81 Respiratory Rate 24 23 Blood Pressure 104/61 Pulse Oximetry 100 100 Oxygen Delivery Method 08/04/23 16:00 08/04/23 16:00 08/04/23 16:30 Temperature Pulse Rate 78 Respiratory Rate 22 Blood Pressure 121/79 164/98 H Pulse Oximetry 97 Oxygen Delivery Method 08/04/23 16:30 08/04/23 17:00 08/04/23 17:00 Temperature Pulse Rate 76 86 Respiratory Rate 24 24 Blood Pressure 198/113 H Pulse Oximetry 99 98 Oxygen Delivery Method MDM - Abdominal Pain Lab Data 08/04/23 13:00 08/04/23 13:00 Labs: Lab Results 08/04/23 08/04/23 08/04/23 Range/Units 13:00 13:00 13:00 WBC 5.6 (4.5-11.0) X10^3/uL RBC 3.72 L (4.0-5.2) X10^6/uL Hgb 11.8 L (12.0-16.0) g/dL Hct 35.1 L (36-46) % MCV 94.4 (80-100) fL MCH 31.8 (26-34) PG MCHC 33.7 (30-36) % RDW 12.8 (11.6-14.8) % Plt Count 180 (150-400) X10^3/uL Neut % (Auto) 84.2 H (50-75) % Lymph % (Auto) 11.2 L (25-40) % [place] % (Auto) 3.9 (3-14) % Eos % (Auto) 0.1 L (2-4) % Baso % (Auto) 0.6 (0-2) % Neut # (Auto) 4700 (0776-4487) /uL Lymph # (Auto) 600 L (7765-0834) /uL [place] # (Auto) 200 (0-900) /uL Eos # (Auto) 0 (0-450) /uL Baso # (Auto) 0 (0-100) /uL Sodium 142 (137-145) mmol/L Potassium 3.4 (3.4-5.1) mmol/L Chloride 102 (98-107) mmol/L Carbon Dioxide 27 (22-32) mmol/L BUN 9 (7-17) mg/dL Creatinine 0.66 (0.52-1.04) mg/dL Estimated GFR > 60 (>60) mL/min BUN/Creatinine Ratio 13.6 (6-22) Glucose 125 H (70-100) mg/dL Calcium 9.2 (8.4-10.2) mg/dL Total Bilirubin 0.5 (0.2-1.3) mg/dL AST 26 (14-36) IU/L ALT 18 (<35) IU/L Alkaline Phosphatase 77 (38-126) U/L Ammonia < 9 L (9-30) umol/L Total Protein 8.1 (6.3-8.2) g/dL Albumin 4.6 (3.5-5.0) g/dL Globulin 3.5 (1.7-4.1) g/dL Albumin/Globulin Ratio 1.3 (1.0-2.8) Lipase 94 (23-300) U/L Discharge Plan Departure Patient Disposition: Home Clinical Impression: Cyclic vomiting syndrome Instructions: Nausea and Vomiting-Adult Activity Restrictions/Additional Instructions: Promethazine every 6 hours for nausea and vomiting. Contact her PCM. I would suggest Gastroenterology consultation. Return the ER as necessary. Prescriptions: New promethazine 12.5 mg tablet 12.5 mg PO Q6H PRN (Reason: nausea and vomiting) Qty: 30 0RF Rx Instructions: 3 doses during day; last dose no later than 4 hr before bedtime ondansetron 4 mg tablet,disintegrating 4 mg PO Q4H PRN (Reason: nausea and vomiting) Qty: 30 0RF Rx Instructions: give 1st dose 30min before emetogenic chemo No Action ondansetron 4 mg tablet,disintegrating 4 mg PO Q8H PRN (Reason: nausea and vomiting) Qty: 10 0RF ibuprofen 200 mg tablet 400 mg PO Q6H Qty: 60 0RF acetaminophen [Tylenol] 325 mg capsule 650 mg PO QID PRN (Reason: pain) Qty: 60 0RF haloperidol 2 mg tablet 2 mg PO Q6H PRN (Reason: nausea and vomiting) Qty: 10 0RF promethazine 25 mg suppository 25 mg NJ Q4-6H PRN (Reason: nausea and vomiting) Qty: 12 0RF Referrals: Joanna Storm MD [Primary Care Provider] - Stand Alone Forms: Patient Portal/API, Work Release Note
[2023-08-04] MEDS: LORazepam 2 MG/ML INJ IV (12:35)
[2023-08-04] MEDS: HALOPERIDOL 5 MG/ML VIAL IV (12:35)
[2023-08-04] MEDS: SODIUM CHLORIDE 0.9% 1,000 ML 1000 ML IV (12:36)
--- NOTE | 2023-08-04 12:44 | PC.NURSE ---
Pt writing in pain on arrival to ED. Unable to answer any questions due to vomiting and wretching. Order for haldol and ativan. at bedside. IV fluids infusing and meds given slow IVP. Pt breathing is short and shallow. Shortly after med administration, Pt desaturating to 80% RA. Placed on O2 3L via NC and tolerating well. Currently 98%. Resting eyes closed and appears more comfortable.
[2023-08-04 13:08] LABS: Add Manual Diff / Slide Review NO; Basophils Absolute Auto 0 /uL (0-100); Basophils Percent Auto 0.6 % (0-2); Eosinophils Absolute Auto 0 /uL (0-450); Eosinophils Percent Auto 0.1 % (2-4); Hematocrit 35.1 % (36-46); Hemoglobin 11.8 g/dL (12.0-16.0); Lymphocytes Absolute Auto 600 /uL (1100-4500); Lymphocytes Percent Auto 11.2 % (25-40); Mean Corpuscular HGB Conc 33.7 % (30-36); Mean Corpuscular Hemoglobin 31.8 PG (26-34); Mean Corpuscular Volume 94.4 fL (80-100); Monocytes Absolute Auto 200 /uL (0-900); Monocytes Percent Auto 3.9 % (3-14); Neutrophils Absolute Auto 4700 /uL (1500-7000); Neutrophils Percent Auto 84.2 % (50-75); Platelet Count 180 X10^3/uL (150-400); Red Blood Cell Count 3.72 X10^6/uL (4.0-5.2); Red Cell Distribution Width 12.8 % (11.6-14.8); White Blood Cell Count 5.6 X10^3/uL (4.5-11.0)
[2023-08-04 13:19] LABS: Ammonia (NH3) < 9 umol/L (9-30)
[2023-08-04 13:24] LABS: Alanine Aminotransferase 18 IU/L (<35); Albumin 4.6 g/dL (3.5-5.0); Albumin Globulin Ratio 1.3 (1.0-2.8); Alkaline Phosphatase 77 U/L (38-126); Aspartate Aminotransferase 26 IU/L (14-36); BUN Creatinine Ratio 13.6 (6-22); Bilirubin Total 0.5 mg/dL (0.2-1.3); Blood Urea Nitrogen 9 mg/dL (7-17); Calcium 9.2 mg/dL (8.4-10.2); Carbon Dioxide 27 mmol/L (22-32); Chloride 102 mmol/L (98-107); Estimated Glomerular Filt Rate > 60 mL/min (>60); Globulin 3.5 g/dL (1.7-4.1); Glucose 125 mg/dL (70-100); HEMOLYSIS < 15 (0-50); Lipase 94 U/L (23-300); Potassium 3.4 mmol/L (3.4-5.1); Sodium 142 mmol/L (137-145); Total Protein 8.1 g/dL (6.3-8.2)
[2023-08-04] MEDS: SODIUM CHLORIDE 0.9% 1,000 ML 250 ML IV (16:22)
[2023-08-04] MEDS: ONDANSETRON 4 MG ODT SL (17:33)
--- NOTE | 2023-08-04 18:10 | PC.NURSE ---
Daughter very upset that Dr. Mohr spoke w/ pt without family member present. Dr. Mohr spoke w/ patient when she was alert and oriented and pt is her own person. Daughter told me I was being aggressive. I apologized which she did not accept. I asked family to wait in room for Dr. Mohr to see them.
== END 2023-08-04 18:18 | disposition home or self-care (01) ==
PROVIDERS: Emergency Provider Emergency Medicine; Family Provider Internal Medicine; PCP Internal Medicine
DX: R11.15 Cyclical vomiting syndrome unrelated to migraine (principal)
CPT/HCPCS: 36415; 80053; 82140; 83690; 85025; 96361; 96374; 96375; 99284; J1630; J2060

== ENCOUNTER 2023-08-22 01:46 | Emergency (ER) | payer OTHER, MEDICAID, SELFPAY ==
[2023-07-12 09:46] VITALS: PULSE 63; RESP 16; O2SAT 100; BMI 22.9
[2023-08-22] VITALS (18 sets, daily range): BP systolic 95–139; BP diastolic 56–112; PULSE 65–92; RESP 16–26; TEMP 36.3; O2SAT 98–100; BMI 22.6
--- NOTE | 2023-08-22 01:56 | ED_ITS ---
HPI - Nausea/Vomiting/Diarrhea <Janis Mcintyre [place], DO - Last Filed: 08/22/23 19:45> General Chief complaint: Nausea/Vomiting/Diarrhea Stated complaint: n/v/ab pain Time Seen by Provider: 08/22/23 01:49 Source: patient and EMS Mode of arrival: EMS Limitations: no limitations History of Present Illness HPI Narrative: This is a 47-year-old female with history of cyclic vomiting, abdominal migrai cookie, splenic artery aneurysm who had ex lap on 07/08/2023 for potential suspected intussusception. Patient presents for recurrent abdominal pain. She states symptoms started yesterday into today. She states no fevers but has been sweaty. She states vomiting, no blood. Abdominal pain is very similar to prior episodes. She states no bowel movement since yesterday, she states she has been passing flatus. Patient states no urinary symptoms. Denies chest pain or shortness of breath currently. She is quite uncomfortable on examination and presents similar to prior visits. Patient has had 1 visit on 08/04/2023. Patient tried her Zofran and suppository antinausea medications without any h elp. She states she had oral Zofran at home but could not keep it down. She did smoke some marijuana to see if this would be helpful. She states no other new medications. No other surgeries or interventions since June. Dr. Storm is her PCP. Related Data Previous Rx's Medication Instructions Recorded promethazine 25 mg rectal 25 mg MI Q4-6H PRN nausea and 01/20/23 suppository vomiting #12 ea ondansetron 4 mg disintegrating 4 mg PO Q8H PRN nausea and 02/12/23 tablet vomiting #10 tabs acetaminophen 325 mg capsule 650 mg PO QID PRN pain #60 caps 07/10/23 (Tylenol) ibuprofen 200 mg tablet 400 mg PO Q6H #60 tabs 07/10/23 haloperidol 2 mg tablet 2 mg PO Q6H PRN nausea and 07/13/23 vomiting #10 tabs ondansetron 4 mg disintegrating 4 mg PO Q4H PRN nausea and 08/04/23 tablet vomiting 3 doses #30 tabs promethazine 12.5 mg tablet 12.5 mg PO Q6H PRN nausea and 08/04/23 vomiting #30 tabs Allergies Allergy/AdvReac Type Severity Reaction Status Date / Time latex [LATEX] Allergy Unknown Verified 08/04/23 12:23 metoclopramide AdvReac Unknown DYSTONIA Verified 08/04/23 12:23 [METOCLOPRAMIDE] Review of Systems <Janis Saxena DO - Last Filed: 08/22/23 19:45> Review of Systems ROS Unobtainable: All systems reviewed & are unremarkable except as noted in HPI and below Patient History <Janis Saxena DO - Last Filed: 08/22/23 19:45> Medical History Abscess Chronic abdominal pain Cyclic vomiting syndrome Family history of angioedema Marijuana use, continuous MRSA (methicillin resistant staph aureus) culture positive Pancreatitis Surgical History Hx of appendectomy Hx of cholecystectomy Family History Father Hypertension Mother Diabetes mellitus Daughter Angio-edema Other Colon cancer Social History household members: spouse Smoking Status: Current every day smoker alcohol intake: current Smoking Status: Current every day smoker tobacco type: vaping alcohol intake frequency: 3 or more drinks per day Alcohol type: wine Substance Use Type: former substance user and marijuana Exam <Janis Saxena DO - Last Filed: 08/22/23 19:45> Narrative Exam Narrative: GENERAL: Alert and oriented x three, female in moderate distress. No diaphoresis. HEENT: Head normocephalic, atraumatic, EOMI, pupils reactive, face symmetric, moist mucous membranes NECK: Supple, full range of motion CARDIOVASCULAR: Regular rate and rhythm without murmurs, rubs or gallops. RESPIRATORY: Breath sounds equal bilaterally, no wheezes rales or rhonchi. Positive for tachypnea, no accessory muscle use. ABDOMEN: Soft, generalized tenderness. Non-distended. Normoactive bowel sounds all 4 quadrants. No guarding or rebound, rigidity, no mass, incision appear healed. : No CVA tenderness EXTREMITIES: No clubbing or edema. Neurovascularly intact. Full range of motion of all four extremities. 2+ pulses bilateral lower extremities. NEUROLOGICAL: Cranial nerves II through XII grossly intact. Moving all extremities SKIN: Warm, dry, no petechiae, no rashes or lesions. Initial Vital Signs Initial Vital Signs: Vital Signs Pulse Rate 92 H 08/22/23 01:50 Blood Pressure 136/112 H 08/22/23 01:50 Pulse Oximetry 98 08/22/23 01:50 <Brady Huerta, DO - Last Filed: 08/22/23 09:44> Initial Vital Signs Initial Vital Signs: Vital Signs Pulse Rate 92 H 08/22/23 01:50 Blood Pressure 136/112 H 08/22/23 01:50 Pulse Oximetry 98 08/22/23 01:50 Course <Jnais Saxena, DO - Last Filed: 08/22/23 19:45> Orders Ordered: Discontinued Medications Diphenhydramine HCl (Diphenhydramine 50 Mg/Ml Vial) 50 mg IV NOW ONE Stop: 08/22/23 01:58 Last Admin: 08/22/23 02:18 Dose: 50 mg Documented By: Haloperidol (Haloperidol 5 Mg/Ml Vial) 5 mg IV NOW ONE Stop: 08/22/23 01:58 Last Admin: 08/22/23 02:18 Dose: 5 mg Documented By: Lactated Ringer's (Lactated Ringers) 1,000 mls @ 1,000 mls/hr IV BOLUS ONE Stop: 08/22/23 02:56 Last Infusion: 08/22/23 03:35 Dose: 0 mls/hr Documented By: Admin: 08/22/23 02:18 Dose: 1,000 mls/hr Documented By: Magnesium Sulfate (Magnesium Sulfate) 2 gm in 50 mls @ 25 mls/hr IV NOW ONE Stop: 08/22/23 05:24 Last Infusion: 08/22/23 05:47 Dose: 0 mls/hr Documented By: Co-signed By: GC Admin: 08/22/23 03:32 Dose: 25 mls/hr Documented By: Co-signed By: GC POTASSIUM CHLORIDE IN WATER (Potassium Cl 10 Meq/100 Ml Megan) 10 meq in 100 mls @ 100 mls/hr IV Q1H LINDA Stop: 08/22/23 07:59 Last Infusion: 08/22/23 08:43 Dose: 0 mls/hr Documented By: Admin: 08/22/23 07:26 Dose: 100 mls/hr Documented By: Infusion: 08/22/23 07:23 Dose: 0 mls/hr Documented By: Admin: 08/22/23 06:10 Dose: 100 mls/hr Documented By: Infusion: 08/22/23 06:10 Dose: 0 mls/hr Documented By: Admin: 08/22/23 05:07 Dose: 100 mls/hr Documented By: Infusion: 08/22/23 05:06 Dose: 0 mls/hr Documented By: Admin: 08/22/23 04:07 Dose: 100 mls/hr Documented By: Lactated Ringer's (Lactated Ringers) 1,000 mls @ 1,000 mls/hr IV BOLUS ONE Stop: 08/22/23 06:07 Last Infusion: 08/22/23 09:31 Dose: 0 mls/hr Documented By: Infusion: 08/22/23 07:24 Dose: 500 mls/hr Documented By: Admin: 08/22/23 05:14 Dose: 1,000 mls/hr Documented By: Pantoprazole Sodium (Pantoprazole 40 Mg Vial) 40 mg IV NOW ONE Stop: 08/22/23 01:58 Last Admin: 08/22/23 02:18 Dose: 40 mg Documented By: Vital Signs Vital signs: Vital Signs - 8 hr 08/22/23 01:52 08/22/23 01:50 08/22/23 01:50 Temperature 97.3 F L Pulse Rate 85 92 H Respiratory Rate 26 H Blood Pressure 136/112 H 136/112 H Pulse Oximetry 100 98 Oxygen Delivery Method Room Air Oxygen Flow Rate 08/22/23 02:51 08/22/23 02:51 08/22/23 03:00 Temperature Pulse Rate 71 Respiratory Rate Blood Pressure 100/60 98/65 Pulse Oximetry 99 Oxygen Delivery Method Nasal Cannula Oxygen Flow Rate 2 08/22/23 03:00 08/22/23 03:30 08/22/23 03:30 Temperature Pulse Rate 75 68 Respiratory Rate 16 Blood Pressure 102/67 Pulse Oximetry 100 100 Oxygen Delivery Method Oxygen Flow Rate 08/22/23 04:00 08/22/23 04:06 08/22/23 04:30 Temperature Pulse Rate 65 67 Respiratory Rate Blood Pressure 95/56 L Pulse Oximetry 100 100 Oxygen Delivery Method Oxygen Flow Rate 08/22/23 04:30 08/22/23 05:00 08/22/23 05:00 Temperature Pulse Rate 71 72 Respiratory Rate Blood Pressure 102/58 L Pulse Oximetry 99 100 Oxygen Delivery Method Room Air Room Air Oxygen Flow Rate 08/22/23 05:30 08/22/23 05:30 08/22/23 06:00 Temperature Pulse Rate 73 77 Respiratory Rate Blood Pressure 139/92 H Pulse Oximetry 100 100 Oxygen Delivery Method Oxygen Flow Rate 08/22/23 06:30 08/22/23 06:31 08/22/23 06:31 Temperature Pulse Rate 78 83 Respiratory Rate Blood Pressure 129/82 Pulse Oximetry 99 99 Oxygen Delivery Method Oxygen Flow Rate 08/22/23 07:00 08/22/23 07:00 08/22/23 07:30 Temperature Pulse Rate 80 Respiratory Rate Blood Pressure 115/72 115/65 Pulse Oximetry 99 Oxygen Delivery Method Oxygen Flow Rate 08/22/23 07:30 08/22/23 08:00 08/22/23 08:00 Temperature Pulse Rate 79 79 Respiratory Rate 24 Blood Pressure 124/81 Pulse Oximetry 98 99 Oxygen Delivery Method Room Air Oxygen Flow Rate 08/22/23 08:30 08/22/23 08:30 08/22/23 09:00 Temperature Pulse Rate 77 Respiratory Rate Blood Pressure 135/84 127/80 Pulse Oximetry 99 Oxygen Delivery Method Room Air Oxygen Flow Rate 08/22/23 09:00 Temperature Pulse Rate 77 Respiratory Rate Blood Pressure Pulse Oximetry 99 Oxygen Delivery Method Oxygen Flow Rate <Brady Huerta, - Last Filed: 08/22/23 09:44> Orders Ordered: Discontinued Medications Diphenhydramine HCl (Diphenhydramine 50 Mg/Ml Vial) 50 mg IV NOW ONE Stop: 08/22/23 01:58 Last Admin: 08/22/23 02:18 Dose: 50 mg Documented By: Haloperidol (Haloperidol 5 Mg/Ml Vial) 5 mg IV NOW ONE Stop: 08/22/23 01:58 Last Admin: 08/22/23 02:18 Dose: 5 mg Documented By: Lactated Ringer's (Lactated Ringers) 1,000 mls @ 1,000 mls/hr IV BOLUS ONE Stop: 08/22/23 02:56 Last Infusion: 08/22/23 03:35 Dose: 0 mls/hr Documented By: Admin: 08/22/23 02:18 Dose: 1,000 mls/hr Documented By: Magnesium Sulfate (Magnesium Sulfate) 2 gm in 50 mls @ 25 mls/hr IV NOW ONE Stop: 08/22/23 05:24 Last Infusion: 08/22/23 05:47 Dose: 0 mls/hr Documented By: Co-signed By: GC Admin: 08/22/23 03:32 Dose: 25 mls/hr Documented By: Co-signed By: POTASSIUM CHLORIDE IN WATER (Potassium Cl 10 Meq/100 Ml Megan) 10 meq in 100 mls @ 100 mls/hr IV Q1H LINDA Stop: 08/22/23 07:59 Last Infusion: 08/22/23 08:43 Dose: 0 mls/hr Documented By: Admin: 08/22/23 07:26 Dose: 100 mls/hr Documented By: Infusion: 08/22/23 07:23 Dose: 0 mls/hr Documented By: Admin: 08/22/23 06:10 Dose: 100 mls/hr Documented By: Infusion: 08/22/23 06:10 Dose: 0 mls/hr Documented By: Admin: 08/22/23 05:07 Dose: 100 mls/hr Documented By: Infusion: 08/22/23 05:06 Dose: 0 mls/hr Documented By: Admin: 08/22/23 04:07 Dose: 100 mls/hr Documented By: Lactated Ringer's (Lactated Ringers) 1,000 mls @ 1,000 mls/hr IV BOLUS ONE Stop: 08/22/23 06:07 Last Infusion: 08/22/23 09:31 Dose: 0 mls/hr Documented By: Infusion: 08/22/23 07:24 Dose: 500 mls/hr Documented By: Admin: 08/22/23 05:14 Dose: 1,000 mls/hr Documented By: Pantoprazole Sodium (Pantoprazole 40 Mg Vial) 40 mg IV NOW ONE Stop: 08/22/23 01:58 Last Admin: 08/22/23 02:18 Dose: 40 mg Documented By: Vital Signs Vital signs: Vital Signs - 8 hr 08/22/23 01:52 08/22/23 01:50 08/22/23 01:50 Temperature 97.3 F L Pulse Rate 85 92 H Respiratory Rate 26 H Blood Pressure 136/112 H 136/112 H Pulse Oximetry 100 98 Oxygen Delivery Method Room Air Oxygen Flow Rate 08/22/23 02:51 08/22/23 02:51 08/22/23 03:00 Temperature Pulse Rate 71 Respiratory Rate Blood Pressure 100/60 98/65 Pulse Oximetry 99 Oxygen Delivery Method Nasal Cannula Oxygen Flow Rate 2 08/22/23 03:00 08/22/23 03:30 08/22/23 03:30 Temperature Pulse Rate 75 68 Respiratory Rate 16 Blood Pressure 102/67 Pulse Oximetry 100 100 Oxygen Delivery Method Oxygen Flow Rate 08/22/23 04:00 08/22/23 04:06 08/22/23 04:30 Temperature Pulse Rate 65 67 Respiratory Rate Blood Pressure 95/56 L Pulse Oximetry 100 100 Oxygen Delivery Method Oxygen Flow Rate 08/22/23 04:30 08/22/23 05:00 08/22/23 05:00 Temperature Pulse Rate 71 72 Respiratory Rate Blood Pressure 102/58 L Pulse Oximetry 99 100 Oxygen Delivery Method Room Air Room Air Oxygen Flow Rate 08/22/23 05:30 08/22/23 05:30 08/22/23 06:00 Temperature Pulse Rate 73 77 Respiratory Rate Blood Pressure 139/92 H Pulse Oximetry 100 100 Oxygen Delivery Method Oxygen Flow Rate 08/22/23 06:30 08/22/23 06:31 08/22/23 06:31 Temperature Pulse Rate 78 83 Respiratory Rate Blood Pressure 129/82 Pulse Oximetry 99 99 Oxygen Delivery Method Oxygen Flow Rate 08/22/23 07:00 08/22/23 07:00 08/22/23 07:30 Temperature Pulse Rate 80 Respiratory Rate Blood Pressure 115/72 115/65 Pulse Oximetry 99 Oxygen Delivery Method Oxygen Flow Rate 08/22/23 07:30 08/22/23 08:00 08/22/23 08:00 Temperature Pulse Rate 79 79 Respiratory Rate 24 Blood Pressure 124/81 Pulse Oximetry 98 99 Oxygen Delivery Method Room Air Oxygen Flow Rate 08/22/23 08:30 08/22/23 08:30 08/22/23 09:00 Temperature Pulse Rate 77 Respiratory Rate Blood Pressure 135/84 127/80 Pulse Oximetry 99 Oxygen Delivery Method Room Air Oxygen Flow Rate 08/22/23 09:00 Temperature Pulse Rate 77 Respiratory Rate Blood Pressure Pulse Oximetry 99 Oxygen Delivery Method Oxygen Flow Rate MDM - Nausea/Vomiting/Diarrhea <Janisstefanie Saxena, DO - Last Filed: 08/22/23 19:45> Lab Data 08/22/23 01:50 08/22/23 03:22 Labs: Lab Results 08/22/23 08/22/23 08/22/23 Range/Units 01:50 01:50 01:50 WBC 7.4 (4.5-11.0) X10^3/uL RBC 4.37 (4.0-5.2) X10^6/uL Hgb 14.1 (12.0-16.0) g/dL Hct 41.1 (36-46) % MCV 93.8 (80-100) fL MCH 32.3 (26-34) PG MCHC 34.4 (30-36) % RDW 13.5 (11.6-14.8) % Plt Count 275 (150-400) X10^3/uL Neut % (Auto) 79.2 H (50-75) % Lymph % (Auto) 13.5 L (25-40) % [place] % (Auto) 3.3 (3-14) % Eos % (Auto) 1.6 L (2-4) % Baso % (Auto) 2.4 H (0-2) % Neut # (Auto) 5800 (4575-5810) /uL Lymph # (Auto) 1000 L (8832-3367) /uL [place] # (Auto) 200 (0-900) /uL Eos # (Auto) 100 (0-450) /uL Baso # (Auto) 200 H (0-100) /uL Sodium 142 (137-145) mmol/L Potassium 4.1 (3.4-5.1) mmol/L Chloride 97 L (98-107) mmol/L Carbon Dioxide 24 (22-32) mmol/L BUN 19 H (7-17) mg/dL Creatinine 0.73 (0.52-1.04) mg/dL Estimated GFR > 60 (>60) mL/min BUN/Creatinine Ratio 26.0 H (6-22) Glucose 182 H (70-100) mg/dL Calcium 10.8 H (8.4-10.2) mg/dL Magnesium 1.9 (1.6-2.3) mg/dL Total Bilirubin 1.6 H (0.2-1.3) mg/dL AST 37 H (14-36) IU/L ALT 60 H (<35) IU/L Alkaline Phosphatase 106 (38-126) U/L Total Creatine Kinase (30-135) U/L Troponin I (0.01-0.034) ng/mL Total Protein 10.3 H (6.3-8.2) g/dL Albumin 5.0 (3.5-5.0) g/dL Globulin 5.3 H (1.7-4.1) g/dL Albumin/Globulin Ratio 0.9 L (1.0-2.8) Lipase 59 (23-300) U/L Urine RBC (0-5/HPF) Urine WBC (0-5/HPF) Ur Squamous Epith Cells (0-5/HPF) Amorphous Sediment Urine Bacteria (None) Ur Culture Indicated? 08/22/23 08/22/23 08/22/23 Range/Units 01:50 03:22 03:22 WBC (4.5-11.0) X10^3/uL RBC (4.0-5.2) X10^6/uL Hgb (12.0-16.0) g/dL Hct (36-46) % MCV (80-100) fL MCH (26-34) PG MCHC (30-36) % RDW (11.6-14.8) % Plt Count (150-400) X10^3/uL Neut % (Auto) (50-75) % Lymph % (Auto) (25-40) % [place] % (Auto) (3-14) % Eos % (Auto) (2-4) % Baso % (Auto) (0-2) % Neut # (Auto) (0838-8633) /uL Lymph # (Auto) (0341-5432) /uL [place] # (Auto) (0-900) /uL Eos # (Auto) (0-450) /uL Baso # (Auto) (0-100) /uL Sodium 143 (137-145) mmol/L Potassium 3.0 L (3.4-5.1) mmol/L Chloride 97 L (98-107) mmol/L Carbon Dioxide 33 H (22-32) mmol/L BUN 21 H (7-17) mg/dL Creatinine 0.75 (0.52-1.04) mg/dL Estimated GFR > 60 (>60) mL/min BUN/Creatinine Ratio 28.0 H (6-22) Glucose 128 H (70-100) mg/dL Calcium 10.3 H (8.4-10.2) mg/dL Magnesium (1.6-2.3) mg/dL Total Bilirubin (0.2-1.3) mg/dL AST (14-36) IU/L ALT (<35) IU/L Alkaline Phosphatase (38-126) U/L Total Creatine Kinase 40 (30-135) U/L Troponin I 0.015 < 0.012 (0.01-0.034) ng/mL Total Protein (6.3-8.2) g/dL Albumin (3.5-5.0) g/dL Globulin (1.7-4.1) g/dL Albumin/Globulin Ratio (1.0-2.8) Lipase (23-300) U/L Urine RBC (0-5/HPF) Urine WBC (0-5/HPF) Ur Squamous Epith Cells (0-5/HPF) Amorphous Sediment Urine Bacteria (None) Ur Culture Indicated? 08/22/23 08/22/23 Range/Units 05:33 09:37 WBC (4.5-11.0) X10^3/uL RBC (4.0-5.2) X10^6/uL Hgb (12.0-16.0) g/dL Hct (36-46) % MCV (80-100) fL MCH (26-34) PG MCHC (30-36) % RDW (11.6-14.8) % Plt Count (150-400) X10^3/uL Neut % (Auto) (50-75) % Lymph % (Auto) (25-40) % [place] % (Auto) (3-14) % Eos % (Auto) (2-4) % Baso % (Auto) (0-2) % Neut # (Auto) (9950-2726) /uL Lymph # (Auto) (9049-3529) /uL [place] # (Auto) (0-900) /uL Eos # (Auto) (0-450) /uL Baso # (Auto) (0-100) /uL Sodium (137-145) mmol/L Potassium (3.4-5.1) mmol/L Chloride (98-107) mmol/L Carbon Dioxide (22-32) mmol/L BUN (7-17) mg/dL Creatinine (0.52-1.04) mg/dL Estimated GFR (>60) mL/min BUN/Creatinine Ratio (6-22) Glucose (70-100) mg/dL Calcium (8.4-10.2) mg/dL Magnesium (1.6-2.3) mg/dL Total Bilirubin (0.2-1.3) mg/dL AST (14-36) IU/L ALT (<35) IU/L Alkaline Phosphatase (38-126) U/L Total Creatine Kinase (30-135) U/L Troponin I < 0.012 (0.01-0.034) ng/mL Total Protein (6.3-8.2) g/dL Albumin (3.5-5.0) g/dL Globulin (1.7-4.1) g/dL Albumin/Globulin Ratio (1.0-2.8) Lipase (23-300) U/L Urine RBC 1-5/hpf (0-5/HPF) Urine WBC 1-5/hpf (0-5/HPF) Ur Squamous Epith Cells 1-5 /hpf (0-5/HPF) Amorphous Sediment 1+ Urine Bacteria Moderate (10-30) H (None) Ur Culture Indicated? Cult not indicated Urine Dip Bedside Urine Glucose Negative Bedside Urine Bilirubin - Negative Bedside Urine Ketone +/- 5 Urine Specific [place] 1.000 Bedside Urine Occult Blood - Negative Bedside Urine pH 9.0 Bedside Urine Protein ++ 100 Bedside Urine Urobilinogen - Negative Bedside Urine Nitrite - Negative Bedside Urine Leukocytes - Negative Esterase Imaging Data Abdominal x-ray: Radiologist's Impression: Nonobstructive bowel gas pattern. No free air. Right upper quadrant surgical clips. Psoas shadows and peritoneal flank strips are visualized. Similar benign HL calcification left upper quadrant lung bases are clear no suspicious bony lesions. No acute process. CT scan - abdomen/pelvis: Radiologist's Impression: Status post cholecystectomy, bile duct within limits for post cholecystectomy minor focal fatty infiltration left hepatic lobe hepatomegaly 21 cm normal liver contour similar minimal proximal intrahepatic ductal distention can which can be seen post cholecystectomy. Stable splenic artery aneurysm measuring proximally 21 mm. Similar lobular isodense thickening of the distal pancreatic body without a defined mass, no peripancreatic inflammatory fat induration, normal spleen and adrenal glands, tiny bilateral renal cortical cysts, kidneys enhance symmetrically. No hydro. Normal bladder properly positioned in uterus. Mild left pelvic venous congestion, atrophic ovaries, no adnexal masses. Gastric luminal distention within normal limits. No bowel obstruction no inflammatory change, no intussusception the appendix is not clearly identified no secondary signs of appendicitis. Aorta is normal caliber without dissection superior mesenteric artery is patent no portal venous thrombosis. No free intraperitoneal air, free fluid or lymphadenopathy. Bibasilar dependent s ubsegmental atelectasis. No suspicious bony lesions. Impression no acute gastrointestinal findings stable splenic artery aneurysm at 21 mm similar hepatomegaly, stable chronic postsurgical changes. ECG Data Attestation: I personally reviewed and interpreted this ECG as follows: Prior ECG tracings: available for review Interpretation: Rate of 72 MI 148 QRS 88 QTC of 562. Patient has a inverted P wave in 1 and aVL, does have a P wave present with every QRS has prolonged QTC, patient has T- wave inversions in 1 and aVL with LVH changes and patient has significant changes in comparison to priors. EKG2. Rate of 62 MI 160 QRS 82, QTC is 503 improved from 562. Patient still has some changes in V1 V2 but changes in 1 and aVL have significantly improved and changes in lateral leads appear improved as well. EKGs from 07/21 and prior appears more consistent with prior. MDM Narrative Medical decision making narrative: 47-year-old female with history of abdominal pain and cyclic vomiting, known stable splenic aneurysm and had suspect intussusception with ex lap in June. Patient's symptoms seem consistent with prior visits patient's EKG shows prolonged QT at 562, rate of 72 but does appear different ST segments compared to prior. Patient labs were hemolyzed with a potassium of 4 1, BUN was 19 glucose was 182 calcium was 10.8 with a bilirubin of 1.6, AST of 37 ALT of 60 which was noted by lab could be elevated from hemolysis. Total protein was also elevated. QT changes could be secondary to patient's medications but she is had these in the past without major issues concern for possible falsely elevated potassium and maybe hypokalemic so attempted to repeat BMP, magnesium and troponin were included. Mag is 1.9, repeat BNP which is not hemolyzed shows a potassium of 3 chloride 97, sodium 143 with a CO2 of 33 and a BUN 21, glucose is 128 calcium still elevated at 10.3. Troponin is negative. Because of patient's elevation in bilirubin with acute on chronic abdominal pain initially x-ray was obtained but then felt appropriate to obtain CT imaging. CT imaging shows no acute GI findings stable splenic artery aneurysm, similar hepatomegaly with similar lobular isodense thickening of the distal pancreatic body without defined mass. Patient's potassium was replaced IV, she did receive magnesium as she has QT prolongation despite being 1.9 and could have this secondary to medications versus combination of hypokalemia and hypercalcemia. Additional fluids also given. Repeat EKG shows (after magnesium and 10meq of K): Improvement rate of 62 MI 160 QRS 82, QTC is 503 improved from 562. Patient still has some changes in V1 V2 but changes in 1 and aVL have significantly improved and changes in lateral leads appear improved as well. EKGs from 07/21 and prior appears consistent with this. Suspect combination of hypokalemia, mild hypercalcemia with Qt prolon ging agents as potential source of changes. Troponin on repeat is negative. Patients BP has improved. Potassium is stil running. Signed out to Dr. Huerta while awaiting completion of potassium and for re-evaluation for appropriateness for discharge versus admission. Dr Huerta: Received turned over. We patient's history and physical. Patient has been resting comfortably. Her potassium has been infused. Patient is tolerating oral intake. She walked to the bathroom. Repeat EKG shows im provement in her QTC. I suspect that the prolonged QTC was because of the medications she received here. I did advise the patient about this. Advised that she tell any provider prior to receiving Haldol that she should get an EKG in the future. Unfortunately Haldol as what seems to work best for her. Will discharge patient home. She is feeling better. <Brady Huerta, DO - Last Filed: 08/22/23 09:44> Lab Data Labs: Lab Results 08/22/23 08/22/23 08/22/23 Range/Units 01:50 01:50 01:50 WBC 7.4 (4.5-11.0) X10^3/uL RBC 4.37 (4.0-5.2) X10^6/uL Hgb 14.1 (12.0-16.0) g/dL Hct 41.1 (36-46) % MCV 93.8 (80-100) fL MCH 32.3 (26-34) PG MCHC 34.4 (30-36) % RDW 13.5 (11.6-14.8) % Plt Count 275 (150-400) X10^3/uL Neut % (Auto) 79.2 H (50-75) % Lymph % (Auto) 13.5 L (25-40) % [place] % (Auto) 3.3 (3-14) % Eos % (Auto) 1.6 L (2-4) % Baso % (Auto) 2.4 H (0-2) % Neut # (Auto) 5800 (8892-3597) /uL Lymph # (Auto) 1000 L (7433-5231) /uL [place] # (Auto) 200 (0-900) /uL Eos # (Auto) 100 (0-450) /uL Baso # (Auto) 200 H (0-100) /uL Sodium 142 (137-145) mmol/L Potassium 4.1 (3.4-5.1) mmol/L Chloride 97 L (98-107) mmol/L Carbon Dioxide 24 (22-32) mmol/L BUN 19 H (7-17) mg/dL Creatinine 0.73 (0.52-1.04) mg/dL Estimated GFR > 60 (>60) mL/min BUN/Creatinine Ratio 26.0 H (6-22) Glucose 182 H (70-100) mg/dL Calcium 10.8 H (8.4-10.2) mg/dL Magnesium 1.9 (1.6-2.3) mg/dL Total Bilirubin 1.6 H (0.2-1.3) mg/dL AST 37 H (14-36) IU/L ALT 60 H (<35) IU/L Alkaline Phosphatase 106 (38-126) U/L Total Creatine Kinase (30-135) U/L Troponin I (0.01-0.034) ng/mL Total Protein 10.3 H (6.3-8.2) g/dL Albumin 5.0 (3.5-5.0) g/dL Globulin 5.3 H (1.7-4.1) g/dL Albumin/Globulin Ratio 0.9 L (1.0-2.8) Lipase 59 (23-300) U/L Urine RBC (0-5/HPF) Urine WBC (0-5/HPF) Ur Squamous Epith Cells (0-5/HPF) Amorphous Sediment Urine Bacteria (None) Ur Culture Indicated? 08/22/23 08/22/23 08/22/23 Range/Units 01:50 03:22 03:22 WBC (4.5-11.0) X10^3/uL RBC (4.0-5.2) X10^6/uL Hgb (12.0-16.0) g/dL Hct (36-46) % MCV (80-100) fL MCH (26-34) PG MCHC (30-36) % RDW (11.6-14.8) % Plt Count (150-400) X10^3/uL Neut % (Auto) (50-75) % Lymph % (Auto) (25-40) % [place] % (Auto) (3-14) % Eos % (Auto) (2-4) % Baso % (Auto) (0-2) % Neut # (Auto) (2221-7030) /uL Lymph # (Auto) (7541-5725) /uL [place] # (Auto) (0-900) /uL Eos # (Auto) (0-450) /uL Baso # (Auto) (0-100) /uL Sodium 143 (137-145) mmol/L Potassium 3.0 L (3.4-5.1) mmol/L Chloride 97 L (98-107) mmol/L Carbon Dioxide 33 H (22-32) mmol/L BUN 21 H (7-17) mg/dL Creatinine 0.75 (0.52-1.04) mg/dL Estimated GFR > 60 (>60) mL/min BUN/Creatinine Ratio 28.0 H (6-22) Glucose 128 H (70-100) mg/dL Calcium 10.3 H (8.4-10.2) mg/dL Magnesium (1.6-2.3) mg/dL Total Bilirubin (0.2-1.3) mg/dL AST (14-36) IU/L ALT (<35) IU/L Alkaline Phosphatase (38-126) U/L Total Creatine Kinase 40 (30-135) U/L Troponin I 0.015 < 0.012 (0.01-0.034) ng/mL Total Protein (6.3-8.2) g/dL Albumin (3.5-5.0) g/dL Globulin (1.7-4.1) g/dL Albumin/Globulin Ratio (1.0-2.8) Lipase (23-300) U/L Urine RBC (0-5/HPF) Urine WBC (0-5/HPF) Ur Squamous Epith Cells (0-5/HPF) Amorphous Sediment Urine Bacteria (None) Ur Culture Indicated? 08/22/23 08/22/23 Range/Units 05:33 09:37 WBC (4.5-11.0) X10^3/uL RBC (4.0-5.2) X10^6/uL Hgb (12.0-16.0) g/dL Hct (36-46) % MCV (80-100) fL MCH (26-34) PG MCHC (30-36) % RDW (11.6-14.8) % Plt Count (150-400) X10^3/uL Neut % (Auto) (50-75) % Lymph % (Auto) (25-40) % [place] % (Auto) (3-14) % Eos % (Auto) (2-4) % Baso % (Auto) (0-2) % Neut # (Auto) (8862-9662) /uL Lymph # (Auto) (2552-9429) /uL [place] # (Auto) (0-900) /uL Eos # (Auto) (0-450) /uL Baso # (Auto) (0-100) /uL Sodium (137-145) mmol/L Potassium (3.4-5.1) mmol/L Chloride (98-107) mmol/L Carbon Dioxide (22-32) mmol/L BUN (7-17) mg/dL Creatinine (0.52-1.04) mg/dL Estimated GFR (>60) mL/min BUN/Creatinine Ratio (6-22) Glucose (70-100) mg/dL Calcium (8.4-10.2) mg/dL Magnesium (1.6-2.3) mg/dL Total Bilirubin (0.2-1.3) mg/dL AST (14-36) IU/L ALT (<35) IU/L Alkaline Phosphatase (38-126) U/L Total Creatine Kinase (30-135) U/L Troponin I < 0.012 (0.01-0.034) ng/mL Total Protein (6.3-8.2) g/dL Albumin (3.5-5.0) g/dL Globulin (1.7-4.1) g/dL Albumin/Globulin Ratio (1.0-2.8) Lipase (23-300) U/L Urine RBC 1-5/hpf (0-5/HPF) Urine WBC 1-5/hpf (0-5/HPF) Ur Squamous Epith Cells 1-5 /hpf (0-5/HPF) Amorphous Sediment 1+ Urine Bacteria Moderate (10-30) H (None) Ur Culture Indicated? Cult not indicated Urine Dip Bedside Urine Glucose Negative Bedside Urine Bilirubin - Negative Bedside Urine Ketone +/- 5 Urine Specific [place] 1.000 Bedside Urine Occult Blood - Negative Bedside Urine pH 9.0 Bedside Urine Protein ++ 100 Bedside Urine Urobilinogen - Negative Bedside Urine Nitrite - Negative Bedside Urine Leukocytes - Negative Esterase ECG Data Interpretation: Rate of 72 MI 148 QRS 88 QTC of 562. Patient has a inverted P wave in 1 and aVL, does have a P wave present with every QRS has prolonged QTC, patient has T- wave inversions in 1 and aVL with LVH changes and patient has significant changes in comparison to priors. EKG2. Rate of 62 MI 160 QRS 82, QTC is 503 improved from 562. Patient still has some changes in V1 V2 but changes in 1 and aVL have significantly improved and changes in lateral leads appear improved as well. EKGs from 07/21 and prior appears more consistent with prior. Repeat EKG Sinus rhythm Ventricular rate is 62 Normal axis QTC 487 QTC improved from prior EKGs. [facility] Narrative Medical decision making narrative: 47-year-old female with history of abdominal pain and cyclic vomiting, known stable splenic aneurysm and had suspect intussusception with ex lap in June. Patient's symptoms seem consistent with prior visits patient's EKG shows prolonged QT at 562, rate of 72 but does appear different ST segments compared to prior. Patient labs were hemolyzed with a potassium of 4 1, BUN was 19 glucose was 182 calcium was 10.8 with a bilirubin of 1.6, AST of 37 ALT of 60 which was noted by lab could be elevated from hemolysis. Total protein was also elevated. QT changes could be secondary to patient's medications but she is had these in the past without major issues concern for possible falsely elevated potassium and maybe hypokalemic so attempted to repeat BMP, magnesium and troponin were included. Mag is 1.9, repeat BNP which is not hemolyzed shows a potassium of 3 chloride 97, sodium 143 with a CO2 of 33 and a BUN 21, glucose is 128 calcium still elevated at 10.3. Troponin is negative. Because of patient's elevation in bilirubin with acute on chronic abdominal pain initially x-ray was obtained but then felt appropriate to obtain CT imaging. CT imaging shows no acute GI findings stable splenic artery aneurysm, similar hepatomegaly with similar lobular isodense thickening of the distal pancreatic body without defined mass. Patient's potassium was replaced IV, she did receive magnesium as she has QT prolongation despite being 1.9 and could have this secondary to medications versus combination of hypokalemia and hypercalcemia. Additional fluids also given. Repeat EKG shows (after magnesium and 10meq of K): Improvement rate of 62 MI 160 QRS 82, QTC is 503 improved from 562. Patient still has some changes in V1 V2 but changes in 1 and aVL have significantly improved and changes in lateral leads appear improved as well. EKGs from 07/21 and prior appears consistent with this. Suspect combination of hypokalemia, mild hypercalcemia with Qt prolonging agents as potential source of changes. Troponin on repeat is negative. Patients BP has improved. Potassium is stil running. Dr Huerta: Received turned over. We patient's history and physical. Patient has been resting comfortably. Her potassium has been infused. Patient is tolerating oral intake. She walked to the bathroom. Repeat EKG shows improvement in her QTC. I suspect that the prolonged QTC was because of the medications she received here. I did advise the patient about this. Advised that she tell any provider prior to receiving Haldol that she should get an EKG in the future. Unfortunately Haldol as what seems to work best for her. Will discharge patient home. She is feeling better. Discharge Plan Departure Patient Disposition: Home Clinical Impression: Hypokalemia, Vomiting, Hypercalcemia, Abdominal pain Instructions: DI for Vomiting -- Adult Activity Restrictions/Additional Instructions: I do recommend in the future you advise any provider prior to receiving Haldol that you should receive an EKG. Contact your primary doctor for a follow-up. Prescriptions: No Action ondansetron 4 mg tablet,disintegrating 4 mg PO Q8H PRN (Reason: nausea and vomiting) Qty: 10 0RF ibuprofen 200 mg tablet 400 mg PO Q6H Qty: 60 0RF acetaminophen [Tylenol] 325 mg capsule 650 mg PO QID PRN (Reason: pain) Qty: 60 0RF haloperidol 2 mg tablet 2 mg PO Q6H PRN (Reason: nausea and vomiting) Qty: 10 0RF promethazine 12.5 mg tablet 12.5 mg PO Q6H PRN (Reason: nausea and vomiting) Qty: 30 0RF Rx Instructions: 3 doses during day; last dose no later than 4 hr before bedtime ondansetron 4 mg tablet,disintegrating 4 mg PO Q4H PRN (Reason: nausea and vomiting) Qty: 30 0RF Rx Instructions: give 1st dose 30min before emetogenic chemo promethazine 25 mg suppository 25 mg MI Q4-6H PRN (Reason: nausea and vomiting) Qty: 12 0RF Referrals: Joanna Storm MD [Primary Care Provider] - Stand Alone Forms: Patient Portal/API
--- NOTE | 2023-08-22 01:57 | DI.RAD.S_ITS ---
PROCEDURE: XR ABDOMEN MIN 2V INDICATIONS: Abd pain, hx: cyclic vomiting; question intussception TECHNIQUE: 2 views of the abdomen were acquired. COMPARISON: [facility], [place], XR ABDOMEN 1V, 01/20/2023, 17:41. [facility], CR, ABDOMEN 2 VIEW, 04/07/2017, 19:12. FINDINGS: Surgical changes and devices: Cholecystectomy clips. IUD projects over the pelvic inlet. Bowel: No pneumoperitoneum. The bowel gas pattern is normal. Soft tissues: No masses; visualized solid organ contours appear normal in size. No suspicious abdominal calcifications. 2.9 cm calcification projects over the left upper quadrant. Bones: No suspicious bony abnormalities. IMPRESSION: No acute abnormality. 2.9 cm calcification projects over the left upper quadrant. Etiology is uncertain but could be within bowel or represent a sequela of prior trauma. Agree with preliminary report. Dictated by: Severino Santana M.D. on 08/22/2023 at 7:17 Approved by: Severino Santana M.D. on 08/22/2023 at 7:19
[2023-08-22] MEDS: PANTOPRAZOLE 40 MG VIAL IV (02:18)
[2023-08-22] MEDS: LACTATED RINGERS 1,000 ML 1000 ML IV ×2 (02:18→05:14)
[2023-08-22] MEDS: diphenhydrAMINE 50 MG/ML VIAL IV (02:18)
[2023-08-22] MEDS: HALOPERIDOL 5 MG/ML VIAL IV (02:18)
[2023-08-22 02:28] LABS: Add Manual Diff / Slide Review NO; Basophils Absolute Auto 200 /uL (0-100); Basophils Percent Auto 2.4 % (0-2); Eosinophils Absolute Auto 100 /uL (0-450); Eosinophils Percent Auto 1.6 % (2-4); Hematocrit 41.1 % (36-46); Hemoglobin 14.1 g/dL (12.0-16.0); Lymphocytes Absolute Auto 1000 /uL (1100-4500); Lymphocytes Percent Auto 13.5 % (25-40); Mean Corpuscular HGB Conc 34.4 % (30-36); Mean Corpuscular Hemoglobin 32.3 PG (26-34); Mean Corpuscular Volume 93.8 fL (80-100); Monocytes Absolute Auto 200 /uL (0-900); Monocytes Percent Auto 3.3 % (3-14); Neutrophils Absolute Auto 5800 /uL (1500-7000); Neutrophils Percent Auto 79.2 % (50-75); Platelet Count 275 X10^3/uL (150-400); Red Blood Cell Count 4.37 X10^6/uL (4.0-5.2); Red Cell Distribution Width 13.5 % (11.6-14.8); White Blood Cell Count 7.4 X10^3/uL (4.5-11.0)
[2023-08-22 02:36] LABS: Alanine Aminotransferase 60 IU/L (<35); Albumin Globulin Ratio 0.9 (1.0-2.8); Alkaline Phosphatase 106 U/L (38-126); Bilirubin Total 1.6 mg/dL (0.2-1.3); Blood Urea Nitrogen 19 mg/dL (7-17); Calcium 10.8 mg/dL (8.4-10.2); Carbon Dioxide 24 mmol/L (22-32); Chloride 97 mmol/L (98-107); Estimated Glomerular Filt Rate > 60 mL/min (>60); Globulin 5.3 g/dL (1.7-4.1); Glucose 182 mg/dL (70-100); Lipase 59 U/L (23-300); Sodium 142 mmol/L (137-145)
[2023-08-22 02:38] LABS: HEMOLYSIS 124 (0-50)
--- NOTE | 2023-08-22 02:40 | PC.NURSE ---
Pt noted to desaturate to spO2 80s shortly after medication admin. Pt placed on 2L nasal cannula. Appears more comfortable at this time. No longer hyperventilating and suddenly becoming apneic as witnessed by myself and provider on patient presentation to ED.
[2023-08-22 02:41] LABS: Potassium 4.1 mmol/L (3.4-5.1)
[2023-08-22 02:42] LABS: Total Protein 10.3 g/dL (6.3-8.2)
[2023-08-22 02:43] LABS: Aspartate Aminotransferase 37 IU/L (14-36)
--- NOTE | 2023-08-22 02:51 | DI.CT.S_ITS ---
PROCEDURE: CT ABDOMEN PELVIS W CON INDICATIONS: Abdominal pain (acute on chronic), vomiting, elevated bilirubin. TECHNIQUE: After the administration of intravenous contrast, axial sections acquired from the lung bases to the pubic symphysis. Coronal and sagittal reformats were performed. For radiation dose reduction, the following was used: automated exposure control, adjustment of mA and/or kV according to patient size. COMPARISON: [facility], CT, CT ABDOMEN PELVIS W CON, 07/13/2023, 12:16. FINDINGS: Image quality: Excellent. Lung bases: Moderate wall thickening of the distal esophagus. Small hiatal hernia.. Heart: No significant findings. ABDOMEN: Liver: Unremarkable. Gallbladder: Absent. Biliary ducts: Unremarkable. Pancreas: Unremarkable. Spleen: Unremarkable. Adrenal Glands: Unremarkable. Kidneys and Ureters: Unremarkable. Stomach and Bowel: Stomach, small bowel loops, and colon are unremarkable. Peritoneum: No abnormal intraperitoneal fluid. No free air. Ventral Wall: No hernias. Abdominal Nodes: No retroperitoneal or mesenteric adenopathy by size criteria. Vessels: Aorta and inferior vena cava are normal in size. Stable 2.1 cm splenic artery aneurysm. Dilated adnexal vasculature. PELVIS: Pelvic Organs: IUD within the pelvic inlet. Bladder: Unremarkable. Pelvic Nodes: No enlarged lymph nodes. Miscellaneous: No hernias are seen. Bones: Unremarkable. IMPRESSION: Wall thickening of the distal esophagus, probably reactive to the presence of vomiting. Cholecystectomy. Biliary tree is nondilated accounting for cholecystectomy changes. Stable 2.1 cm left splenic artery aneurysm. Recommend nonurgent vascular referral. Dilated adnexal vasculature, which can be seen in the clinical setting of pelvic congestion syndrome. Agree with preliminary report. Dictated by: Severino Santana M.D. on 08/22/2023 at 7:27 Approved by: Severino Santana M.D. on 08/22/2023 at 7:29
[2023-08-22 03:20] LABS: Magnesium 1.9 mg/dL (1.6-2.3)
[2023-08-22 03:30] LABS: Creatine Kinase 40 U/L (30-135); Troponin I 0.015 ng/mL (0.01-0.034)
[2023-08-22] MEDS: MAGNESIUM SULFATE 2 GM/50 ML PIGGYBACK IV (03:32)
[2023-08-22 03:39] LABS: Blood Urea Nitrogen 21 mg/dL (7-17); Calcium 10.3 mg/dL (8.4-10.2); Carbon Dioxide 33 mmol/L (22-32); Chloride 97 mmol/L (98-107); Estimated Glomerular Filt Rate > 60 mL/min (>60); Glucose 128 mg/dL (70-100); HEMOLYSIS 24 (0-50); Sodium 143 mmol/L (137-145)
[2023-08-22] MEDS: POTASSIUM CHLORIDE IN WATER 10 MEQ/100 ML PIGGYBACK 100 MEQ IV ×4 (04:07→07:26)
[2023-08-22 05:57] LABS: Troponin I < 0.012 ng/mL (0.01-0.034)
[2023-08-22 06:06] LABS: Troponin I < 0.012 ng/mL (0.01-0.034)
--- NOTE | 2023-08-22 07:36 | PC.NURSE ---
Patient sleeping in bed. Pt woke up anxious and breathing quickly. I asked how she was doing, patient responded I dont know yet. She asked for fresh warm blankets. Patient asleep again. Respiratiory rate 24.
[2023-08-22 11:11] LABS: Bacteria Urine Moderate (10-30); RBC Urine 1-5/HPF (0-5/HPF); WBC Urine 1-5/HPF (0-5/HPF)
[2023-08-22 11:12] LABS: Amorphous Sediment Urine 1+; Culture Indicated Urine Cult Not Indicated; Squamous Epithelial Cell Urine 1-5 /HPF (0-5/HPF)
== END 2023-08-22 10:03 | disposition home or self-care (01) ==
PROVIDERS: Emergency Medicine; Emergency Provider Emergency Medicine; Family Provider Internal Medicine; PCP Internal Medicine
DX: R10.9 Unspecified abdominal pain (principal); E87.6 Hypokalemia; E83.52 Hypercalcemia; R11.10 Vomiting, unspecified
CPT/HCPCS: 36415; 74019; 74177; 80048; 80053; 81003; 81015; 82550; 83690; 83735; 84484; 85025; 93005; 96361; 96365; 96366; 96375; 99284; C9113; J1200; J1630; J3475; Q9967

== ENCOUNTER 2023-09-30 04:52 | Emergency (ER) | payer OTHER, MEDICAID, SELFPAY ==
[2023-07-12 09:46] VITALS: PULSE 63; RESP 16; O2SAT 100; BMI 22.9
[2023-09-30] VITALS (25 sets, daily range): BP systolic 98–194; BP diastolic 57–107; PULSE 77–93; RESP 12; TEMP 36.6; O2SAT 93–100
--- NOTE | 2023-09-30 05:08 | ED.GENADULT ---
HPI - General Adult <Brady Huerta DO - Last Filed: 09/30/23 18:02> General Chief complaint: Abdominal Pain Stated complaint: ABD Pain/Vomiting Time Seen by Provider: 09/30/23 04:52 Source: patient and EMS Mode of arrival: EMS History of Present Illness HPI narrative: Patient is a 47-year-old female. Well known to myself. Does have a history of cyclic vomiting syndrome. Most likely related to cannabis abuse. Was brought in by EMS for evaluation of a couple days of nausea and vomiting abdominal pain. When I went to evaluate the patient she was resting comfortably/sleeping in the room. It was the patient's who contacted EMS this morning. Patient did receive 75 mcg of fentanyl prior to arrival. This did make her have apneic episodes so she was given 0.5 mg of Narcan. Since being here in the emergency department the patient has been relatively somnolent. She is unable to provide any HPI given her current level of sedation. Related Data Previous Rx's Medication Instructions Recorded promethazine 25 mg rectal 25 mg MS Q4-6H PRN nausea and 01/20/23 suppository vomiting #12 ea ondansetron 4 mg disintegrating 4 mg PO Q8H PRN nausea and 02/12/23 tablet vomiting #10 tabs acetaminophen 325 mg capsule 650 mg (2 x 325 mg) PO QID PRN 07/10/23 (Tylenol) pain #60 caps ibuprofen 200 mg tablet 400 mg (2 x 200 mg) PO Q6H #60 tabs 07/10/23 haloperidol 2 mg tablet 2 mg PO Q6H PRN nausea and 07/13/23 vomiting #10 tabs ondansetron 4 mg disintegrating 4 mg PO Q4H PRN nausea and 08/04/23 tablet vomiting 3 doses #30 tabs promethazine 12.5 mg tablet 12.5 mg PO Q6H PRN nausea and 08/04/23 vomiting #30 tabs ondansetron 4 mg disintegrating 4 mg PO Q8H PRN nausea and 09/30/23 tablet vomiting #20 tabs promethazine 25 mg rectal 25 mg MS Q6H PRN nausea and 09/30/23 suppository vomiting #12 ea Allergies Allergy/AdvReac Type Severity Reaction Status Date / Time latex [LATEX] Allergy Unknown Verified 08/04/23 12:23 metoclopramide AdvReac Unknown DYSTONIA Verified 08/04/23 12:23 [METOCLOPRAMIDE] Review of Systems <Brady Huerta DO - Last Filed: 09/30/23 18:02> Review of Systems ROS Unobtainable: Unobtainable due to mental status/LOC Patient History <Brady Huerta DO - Last Filed: 09/30/23 18:02> Medical History Family history of angioedema MRSA (methicillin resistant staph aureus) culture positive Abscess Marijuana use, continuous Chronic abdominal pain Pancreatitis Cyclic vomiting syndrome Surgical History Hx of appendectomy Hx of cholecystectomy Family History Father Hypertension Mother Diabetes mellitus Daughter Angio-edema Other Colon cancer Social History household members: spouse Smoking Status: Current every day smoker alcohol intake: current Smoking Status: Current every day smoker tobacco type: vaping alcohol intake frequency: 3 or more drinks per day Alcohol type: wine Substance Use Type: former substance user and marijuana Exam <Brady Huerta DO - Last Filed: 09/30/23 18:02> Initial Vital Signs Initial Vital Signs: Vital Signs Temperature 97.8 F 09/30/23 04:59 Pulse Rate 77 09/30/23 04:59 Respiratory Rate 12 09/30/23 04:59 Blood Pressure 165/94 H 09/30/23 04:59 Pulse Oximetry 96 09/30/23 04:59 Oxygen Delivery Method Nasal Cannula 09/30/23 04:59 Oxygen Flow Rate 2 09/30/23 04:59 HENMT Head: normal to inspection and normocephalic Mouth: No moist mucous membranes Resp Effort & Inspection: normal respiratory effort, no cough, not labored and not tachypneic Auscultation: clear to auscultation bilaterally Cardio Rate: regular rate Rhythm: regular rhythm GI Inspection: non-distended Palpation: soft and No rigid Extrem Other: No gross deformities <Sebas Bundy MD - Last Filed: 09/30/23 17:56> Initial Vital Signs Initial Vital Signs: Vital Signs Temperature 97.8 F 09/30/23 04:59 Pulse Rate 77 09/30/23 04:59 Respiratory Rate 12 09/30/23 04:59 Blood Pressure 165/94 H 09/30/23 04:59 Pulse Oximetry 96 09/30/23 04:59 Oxygen Delivery Method Nasal Cannula 09/30/23 04:59 Oxygen Flow Rate 2 09/30/23 04:59 Course <Brady Huerta DO - Last Filed: 09/30/23 18:02> Orders Ordered: ED Orders 09/30/23 13:46 EKG-12 Lead Stat Discontinued Medications Sodium Chloride (Normal Saline 0.9%) 1,000 mls @ 1,000 mls/hr IV BOLUS ONE Stop: 09/30/23 05:52 Last Infusion: 09/30/23 05:54 Dose: Infused Documented By: Admin: 09/30/23 05:20 Dose: 1,000 mls/hr Documented By: Magnesium Sulfate (Magnesium Sulfate) 2 gm in 50 mls @ 25 mls/hr IV NOW ONE Stop: 09/30/23 07:40 Last Infusion: 09/30/23 07:45 Dose: Infused Documented By: KB Co-signed By: RB Admin: 09/30/23 05:50 Dose: 25 mls/hr Documented By: Co-signed By: NISHANT Lorazepam (Lorazepam 2 Mg/Ml Inj) 1 mg IV NOW ONE Stop: 09/30/23 06:14 Last Admin: 09/30/23 06:17 Dose: 1 mg Documented By: Lorazepam (Lorazepam 2 Mg/Ml Inj) 1 mg IV NOW ONE Stop: 09/30/23 13:29 Last Admin: 09/30/23 13:38 Dose: Not Given Documented By: RAFAT Pantoprazole Sodium (Pantoprazole 40 Mg Vial) 40 mg IV NOW ONE Stop: 09/30/23 04:54 Last Admin: 09/30/23 05:20 Dose: 40 mg Documented By: Vital Signs Vital signs: Vital Signs - 8 hr 09/30/23 10:30 09/30/23 10:31 09/30/23 10:35 Pulse Rate 88 77 79 Blood Pressure Pulse Oximetry 97 99 100 Oxygen Delivery Method Room Air 09/30/23 10:35 09/30/23 11:00 09/30/23 11:00 Pulse Rate 82 Blood Pressure 184/104 H 169/104 H Pulse Oximetry 96 Oxygen Delivery Method 09/30/23 11:30 09/30/23 11:30 09/30/23 12:00 Pulse Rate 89 83 Blood Pressure 130/82 Pulse Oximetry 94 95 Oxygen Delivery Method 09/30/23 12:00 09/30/23 12:30 09/30/23 12:30 Pulse Rate 91 H Blood Pressure 123/80 123/76 Pulse Oximetry 95 Oxygen Delivery Method 09/30/23 13:00 09/30/23 13:29 09/30/23 13:29 Pulse Rate 92 H 77 Blood Pressure 194/95 H Pulse Oximetry 98 100 Oxygen Delivery Method 09/30/23 13:30 09/30/23 13:31 09/30/23 13:31 Pulse Rate 84 83 Blood Pressure 175/93 H Pulse Oximetry 100 100 Oxygen Delivery Method <Sebas Bundy MD - Last Filed: 09/30/23 17:56> Orders Ordered: ED Orders 09/30/23 13:46 EKG-12 Lead Stat Discontinued Medications Sodium Chloride (Normal Saline 0.9%) 1,000 mls @ 1,000 mls/hr IV BOLUS ONE Stop: 09/30/23 05:52 Last Infusion: 09/30/23 05:54 Dose: Infused Documented By: Admin: 09/30/23 05:20 Dose: 1,000 mls/hr Documented By: Magnesium Sulfate (Magnesium Sulfate) 2 gm in 50 mls @ 25 mls/hr IV NOW ONE Stop: 09/30/23 07:40 Last Infusion: 09/30/23 07:45 Dose: Infused Documented By: ALEX Co-signed By: RB Admin: 09/30/23 05:50 Dose: 25 mls/hr Documented By: Co-signed By: NISHANT Lorazepam (Lorazepam 2 Mg/Ml Inj) 1 mg IV NOW ONE Stop: 09/30/23 06:14 Last Admin: 09/30/23 06:17 Dose: 1 mg Documented By: Lorazepam (Lorazepam 2 Mg/Ml Inj) 1 mg IV NOW ONE Stop: 09/30/23 13:29 Last Admin: 09/30/23 13:38 Dose: Not Given Documented By: RAFAT Pantoprazole Sodium (Pantoprazole 40 Mg Vial) 40 mg IV NOW ONE Stop: 09/30/23 04:54 Last Admin: 09/30/23 05:20 Dose: 40 mg Documented By: Vital Signs Vital signs: Vital Signs - 8 hr 09/30/23 10:30 09/30/23 10:31 09/30/23 10:35 Pulse Rate 88 77 79 Blood Pressure Pulse Oximetry 97 99 100 Oxygen Delivery Method Room Air 09/30/23 10:35 09/30/23 11:00 09/30/23 11:00 Pulse Rate 82 Blood Pressure 184/104 H 169/104 H Pulse Oximetry 96 Oxygen Delivery Method 09/30/23 11:30 09/30/23 11:30 09/30/23 12:00 Pulse Rate 89 83 Blood Pressure 130/82 Pulse Oximetry 94 95 Oxygen Delivery Method 09/30/23 12:00 09/30/23 12:30 09/30/23 12:30 Pulse Rate 91 H Blood Pressure 123/80 123/76 Pulse Oximetry 95 Oxygen Delivery Method 09/30/23 13:00 09/30/23 13:29 09/30/23 13:29 Pulse Rate 92 H 77 Blood Pressure 194/95 H Pulse Oximetry 98 100 Oxygen Delivery Method 09/30/23 13:30 09/30/23 13:31 09/30/23 13:31 Pulse Rate 84 83 Blood Pressure 175/93 H Pulse Oximetry 100 100 Oxygen Delivery Method Medical Decision Making <Brady Huerta DO - Last Filed: 09/30/23 18:02> Lab Data 09/30/23 05:17 09/30/23 05:17 Labs: Lab Results 09/30/23 Range/Units 05:17 WBC 6.0 (4.5-11.0) X10^3/uL RBC 4.04 (4.0-5.2) X10^6/uL Hgb 12.9 (12.0-16.0) g/dL Hct 37.6 (36-46) % MCV 93.2 (80-100) fL MCH 31.9 (26-34) PG MCHC 34.3 (30-36) % RDW 13.4 (11.6-14.8) % Plt Count 243 (150-400) X10^3/uL Neut % (Auto) 81.9 H (50-75) % Lymph % (Auto) 11.6 L (25-40) % [place] % (Auto) 5.1 (3-14) % Eos % (Auto) 0.9 L (2-4) % Baso % (Auto) 0.5 (0-2) % Neut # (Auto) 4900 (1972-0926) /uL Lymph # (Auto) 700 L (3793-9865) /uL [place] # (Auto) 300 (0-900) /uL Eos # (Auto) 100 (0-450) /uL Baso # (Auto) 0 (0-100) /uL Sodium 139 (137-145) mmol/L Potassium 3.0 L (3.4-5.1) mmol/L Chloride 95 L (98-107) mmol/L Carbon Dioxide 31 (22-32) mmol/L BUN 18 H (7-17) mg/dL Creatinine 0.73 (0.52-1.04) mg/dL Estimated GFR > 60 (>60) mL/min BUN/Creatinine Ratio 24.7 H (6-22) Glucose 147 H (70-100) mg/dL Calcium 10.2 (8.4-10.2) mg/dL Magnesium 1.7 (1.6-2.3) mg/dL Total Bilirubin 1.1 (0.2-1.3) mg/dL AST 30 (14-36) IU/L ALT 19 (<35) IU/L Alkaline Phosphatase 82 (38-126) U/L Total Protein 9.3 H (6.3-8.2) g/dL Albumin 5.0 (3.5-5.0) g/dL Globulin 4.3 H (1.7-4.1) g/dL Albumin/Globulin Ratio 1.2 (1.0-2.8) Lipase 52 (23-300) U/L Serum , Qual Negative (Negative) Ethyl Alcohol < 10 ( - 10) mg/dL ECG Data Attestation: I personally reviewed and interpreted this ECG as follows: Interpretation: Sinus rhythm Ventricular rate is 79 Normal axis Normal QRS Prolonged QTC at [address] T wave changes MDM Narrative Medical decision making narrative: Patient has been resting comfortably. Magnesium was low so we will replenish this she did wake up at 1 point and was given a dose of Ativan and now has been resting once again comfortably. Care turned over to day provider to re-evaluate and disposition. <Sebas Bundy MD - Last Filed: 09/30/23 17:56> Lab Data Labs: Lab Results 09/30/23 Range/Units 05:17 WBC 6.0 (4.5-11.0) X10^3/uL RBC 4.04 (4.0-5.2) X10^6/uL Hgb 12.9 (12.0-16.0) g/dL Hct 37.6 (36-46) % MCV 93.2 (80-100) fL MCH 31.9 (26-34) PG MCHC 34.3 (30-36) % RDW 13.4 (11.6-14.8) % Plt Count 243 (150-400) X10^3/uL Neut % (Auto) 81.9 H (50-75) % Lymph % (Auto) 11.6 L (25-40) % [place] % (Auto) 5.1 (3-14) % Eos % (Auto) 0.9 L (2-4) % Baso % (Auto) 0.5 (0-2) % Neut # (Auto) 4900 (8952-6286) /uL Lymph # (Auto) 700 L (4900-7554) /uL [place] # (Auto) 300 (0-900) /uL Eos # (Auto) 100 (0-450) /uL Baso # (Auto) 0 (0-100) /uL Sodium 139 (137-145) mmol/L Potassium 3.0 L (3.4-5.1) mmol/L Chloride 95 L (98-107) mmol/L Carbon Dioxide 31 (22-32) mmol/L BUN 18 H (7-17) mg/dL Creatinine 0.73 (0.52-1.04) mg/dL Estimated GFR > 60 (>60) mL/min BUN/Creatinine Ratio 24.7 H (6-22) Glucose 147 H (70-100) mg/dL Calcium 10.2 (8.4-10.2) mg/dL Magnesium 1.7 (1.6-2.3) mg/dL Total Bilirubin 1.1 (0.2-1.3) mg/dL AST 30 (14-36) IU/L ALT 19 (<35) IU/L Alkaline Phosphatase 82 (38-126) U/L Total Protein 9.3 H (6.3-8.2) g/dL Albumin 5.0 (3.5-5.0) g/dL Globulin 4.3 H (1.7-4.1) g/dL Albumin/Globulin Ratio 1.2 (1.0-2.8) Lipase 52 (23-300) U/L Serum , Qual Negative (Negative) Ethyl Alcohol < 10 ( - 10) mg/dL MDM Narrative Medical decision making narrative: Patient has been resting comfortably. Magnesium was low so we will replenish this she did wake up at 1 point and was given a dose of Ativan and now has been resting once again comfortably. Care turned over to day provider to re-evaluate and disposition. WBC 6.0 hemoglobin 12.9 sodium 139 potassium 3.0 BUN 18 creatinine 0.73 GFR greater than 60 AST 30 ALT 19 total bilirubin 1.1 Additional Information: September 30, 2023 at 7:00 a.m. Gregor: ?sign out from Dr Huerta, patient brought here by ambulance. Had been premedicated by EMS. EKG done and does show QT prolongation and to avoid any medications that would prolong this. Patient has long history of cyclic vomiting. Will need to re-evaluate when patient more alert. 1:44 p.m.. Through the course of the day patient has been sleeping comfortably. However at time of discharge patient has been able to drink juice, walk herself to the bathroom. She would like discharge home. Daughter on way to pick her up. Repeating EKG for QT prolongation evaluation as patient desires to have Zofran at home as well as suppository promethazine. Appropriate for discharge home. EKG at 1:46 p.m., at time of discharge QT has improved. Normal sinus rhythm rate 85 QT 400 [id number]. At time of discharge patient has drank juice and has been up and walking to the bathroom. Appropriate for discharge home. Exam is reassuring. Patient feeling better return precautions reviewed with her. Daughter is driving. Discharge Plan Departure Patient Disposition: Home Clinical Impression: Cyclic vomiting syndrome Instructions: DI for Cyclic Vomiting Syndrome-Adult Activity Restrictions/Additional Instructions: No driving operating machinery today. Please see your family doctor within a week for re-evaluation and get referral for endoscopy. Keep well hydrated. Return if worse if any questions or concerns. Zofran, nausea medication has been to your pharmacy to continue Prescriptions: New ondansetron 4 mg tablet,disintegrating 4 mg PO Q8H PRN (Reason: nausea and vomiting) Qty: 20 0RF promethazine 25 mg suppository 25 mg MS Q6H PRN (Reason: nausea and vomiting) Qty: 12 0RF No Action ondansetron 4 mg tablet,disintegrating 4 mg PO Q8H PRN (Reason: nausea and vomiting) Qty: 10 0RF ibuprofen 200 mg tablet 400 mg PO Q6H Qty: 60 0RF acetaminophen [Tylenol] 325 mg capsule 650 mg PO QID PRN (Reason: pain) Qty: 60 0RF haloperidol 2 mg tablet 2 mg PO Q6H PRN (Reason: nausea and vomiting) Qty: 10 0RF promethazine 12.5 mg tablet 12.5 mg PO Q6H PRN (Reason: nausea and vomiting) Qty: 30 0RF Rx Instructions: 3 doses during day; last dose no later than 4 hr before bedtime ondansetron 4 mg tablet,disintegrating 4 mg PO Q4H PRN (Reason: nausea and vomiting) Qty: 30 0RF Rx Instructions: give 1st dose 30min before emetogenic chemo promethazine 25 mg suppository 25 mg MS Q4-6H PRN (Reason: nausea and vomiting) Qty: 12 0RF Referrals: Joanna Storm MD [Primary Care Provider] - Stand Alone Forms: Patient Portal/API, Work Release Note
[2023-09-30] MEDS: PANTOPRAZOLE 40 MG VIAL IV (05:20)
[2023-09-30] MEDS: SODIUM CHLORIDE 0.9% 1,000 ML 1000 ML IV (05:20)
[2023-09-30 05:25] LABS: Add Manual Diff / Slide Review NO; Basophils Absolute Auto 0 /uL (0-100); Basophils Percent Auto 0.5 % (0-2); Eosinophils Absolute Auto 100 /uL (0-450); Eosinophils Percent Auto 0.9 % (2-4); Hematocrit 37.6 % (36-46); Hemoglobin 12.9 g/dL (12.0-16.0); Lymphocytes Absolute Auto 700 /uL (1100-4500); Lymphocytes Percent Auto 11.6 % (25-40); Mean Corpuscular HGB Conc 34.3 % (30-36); Mean Corpuscular Hemoglobin 31.9 PG (26-34); Mean Corpuscular Volume 93.2 fL (80-100); Monocytes Absolute Auto 300 /uL (0-900); Monocytes Percent Auto 5.1 % (3-14); Neutrophils Absolute Auto 4900 /uL (1500-7000); Neutrophils Percent Auto 81.9 % (50-75); Platelet Count 243 X10^3/uL (150-400); Red Blood Cell Count 4.04 X10^6/uL (4.0-5.2); Red Cell Distribution Width 13.4 % (11.6-14.8)
[2023-09-30 05:34] LABS: Alanine Aminotransferase 19 IU/L (<35); Albumin Globulin Ratio 1.2 (1.0-2.8); Alkaline Phosphatase 82 U/L (38-126); Aspartate Aminotransferase 30 IU/L (14-36); BUN Creatinine Ratio 24.7 (6-22); Bilirubin Total 1.1 mg/dL (0.2-1.3); Blood Urea Nitrogen 18 mg/dL (7-17); Calcium 10.2 mg/dL (8.4-10.2); Carbon Dioxide 31 mmol/L (22-32); Chloride 95 mmol/L (98-107); Estimated Glomerular Filt Rate > 60 mL/min (>60); Ethanol (ETOH) < 10 mg/dL; Globulin 4.3 g/dL (1.7-4.1); Glucose 147 mg/dL (70-100); HEMOLYSIS 34 (0-50); Lipase 52 U/L (23-300); Magnesium 1.7 mg/dL (1.6-2.3); Sodium 139 mmol/L (137-145); Total Protein 9.3 g/dL (6.3-8.2)
[2023-09-30 05:41] LABS: Pregnancy Test Serum,Qual Negative (Negative)
[2023-09-30] MEDS: MAGNESIUM SULFATE 2 GM/50 ML PIGGYBACK IV (05:50)
[2023-09-30] MEDS: LORazepam 2 MG/ML INJ 1 MG IV (06:17)
--- NOTE | 2023-09-30 10:35 | PC.NURSE ---
pt sleeping, RR even, unlabored, 98% on RA, NAD noted, call light in reach.
--- NOTE | 2023-09-30 13:25 | PC.NURSE ---
pt awake, ambulatory to BR in nad. Dr. Bundy at bedside
== END 2023-09-30 13:59 | disposition home or self-care (01) ==
PROVIDERS: Emergency Medicine; Emergency Provider Emergency Medicine; Family Provider Internal Medicine; PCP Internal Medicine
DX: R11.15 Cyclical vomiting syndrome unrelated to migraine (principal); R10.9 Unspecified abdominal pain; R07.9 Chest pain, unspecified
CPT/HCPCS: 36415; 80053; 80320; 83690; 83735; 84703; 85025; 93005; 96361; 96374; 96375; 99284; C9113; J2060; J3475

== ENCOUNTER 2023-11-03 00:43 | Emergency (ER) | payer OTHER, MEDICAID, SELFPAY ==
[2023-07-12 09:46] VITALS: PULSE 63; RESP 16; O2SAT 100; BMI 22.9
[2023-11-03] VITALS (13 sets, daily range): BP systolic 99–196; BP diastolic 59–107; PULSE 82–114; RESP 22; TEMP 36.6; O2SAT 94–100; BMI 23.2
--- NOTE | 2023-11-03 00:48 | ED_ITS ---
HPI - Abdominal Pain General Chief Complaint: Abdominal Pain Stated Complaint: N/V Time Seen by Provider: 11/03/23 00:43 History of Present Illness HPI narrative: 47-year-old female with history of cyclic vomiting syndrome, marijuana use, frequent presentations to the emergency department presents by EMS from home for abdominal pain with nausea and vomiting since early this morning. History is obtained mostly by EMS as the patient arrives screaming, dry heaving, moaning. Related Data Previous Rx's Medication Instructions Recorded promethazine 25 mg rectal 25 mg KS Q4-6H PRN nausea and 01/20/23 suppository vomiting #12 ea ondansetron 4 mg disintegrating 4 mg PO Q8H PRN nausea and 02/12/23 tablet vomiting #10 tabs acetaminophen 325 mg capsule 650 mg (2 x 325 mg) PO QID PRN 07/10/23 (Tylenol) pain #60 caps ibuprofen 200 mg tablet 400 mg (2 x 200 mg) PO Q6H #60 tabs 07/10/23 haloperidol 2 mg tablet 2 mg PO Q6H PRN nausea and 07/13/23 vomiting #10 tabs ondansetron 4 mg disintegrating 4 mg PO Q4H PRN nausea and 08/04/23 tablet vomiting 3 doses #30 tabs promethazine 12.5 mg tablet 12.5 mg PO Q6H PRN nausea and 08/04/23 vomiting #30 tabs ondansetron 4 mg disintegrating 4 mg PO Q8H PRN nausea and 09/30/23 tablet vomiting #20 tabs promethazine 25 mg rectal 25 mg KS Q6H PRN nausea and 09/30/23 suppository vomiting #12 ea Allergies Allergy/AdvReac Type Severity Reaction Status Date / Time latex [LATEX] Allergy Unknown Verified 08/04/23 12:23 metoclopramide AdvReac Unknown DYSTONIA Verified 08/04/23 12:23 [METOCLOPRAMIDE] Review of Systems Review of Systems Narrative: Limited due to patient condition Patient History Medical History Family history of angioedema MRSA (methicillin resistant staph aureus) culture positive Abscess Marijuana use, continuous Chronic abdominal pain Pancreatitis Cyclic vomiting syndrome Surgical History Hx of appendectomy Hx of cholecystectomy Family History Father Hypertension Mother Diabetes mellitus Daughter Angio-edema Other Colon cancer Social History household members: spouse Smoking Status: Current every day smoker alcohol intake: current Smoking Status: Current every day smoker tobacco type: vaping alcohol intake frequency: 3 or more drinks per day Alcohol type: wine Substance Use Type: former substance user and marijuana Exam Initial Vital Signs Initial Vital Signs: Vital Signs Temperature 97.9 F 11/03/23 00:50 Pulse Rate 95 H 11/03/23 00:50 Respiratory Rate 22 11/03/23 00:50 Blood Pressure 142/102 H 11/03/23 00:50 Pulse Oximetry 99 11/03/23 00:50 Oxygen Delivery Method Room Air 11/03/23 00:50 Const: Awake, alert, agitated, screaming Eyes: PERRL, EOMI Cardiac: regular rate, regular rhythm RESP: unlabored, clear bilaterally, no wheezing GI: Atraumatic, soft, patient screams anytime any part of her abdomen is palpated MSK: Atraumatic, full range of motion, pulses equal Skin: Warm, Dry, intact, no rashes Neuro: AO x3, CN II-XII grossly intact, moves all extremities Procedures [facility] [place] Procedure Name of Procedure: Ultrasound guided IV placement Side (if applicable): right Location: Antecubital fossa Technique/Description of procedure performed: US guided IV placement. Prepped in usual fashion. 20g IV placed in R AC after 1 attempt. Good drawback. Flushed and dressed by nursing staff Patient tolerated procedure: Well and No complications Complications: none Course Course Course Narrative: Nausea and vomiting with abdominal pain. Multiple visits similar to previous. Patient is moaning and rolling around on ED bed, screams anytime abdomen is even lightly palpated, however when patient is distracted abdomen is soft and there is no significant tenderness to palpation. Will order labs. No imaging at this time, however can reconsider if there are significant derangements. Difficult IV access - US guided IV placed in R AC by myself. Orders Ordered: Discontinued Medications Droperidol (Droperidol 5 Mg/2 Ml Vial) 2.5 mg IV NOW ONE Stop: 11/03/23 01:03 Last Admin: 11/03/23 01:29 Dose: 2.5 mg Documented By: VIC Droperidol (Droperidol 5 Mg/2 Ml Vial) 2.5 mg IV NOW ONE Stop: 11/03/23 03:19 Last Admin: 11/03/23 03:23 Dose: 2.5 mg Documented By: VIC Sodium Chloride (Normal Saline 0.9%) 1,000 mls @ 1,000 mls/hr IV BOLUS ONE Stop: 11/03/23 01:46 Last Infusion: 11/03/23 04:44 Dose: Infused Documented By: Admin: 11/03/23 01:27 Dose: 1,000 mls/hr Documented By: VIC Reevaluation(s) Reevaluation #1: 0230 -patient has received droperidol and IV fluids. She is now sleeping in the exam room, no longer screaming and is calm and cooperative with staff. Reevaluation #2: Still some breakthrough emesis, will give additional droperidol. Laboratory work reviewed, no significant changes from prior. WBC 8.7, Hgb 14.2, Potassium 3.2, T bili 1.4, AST 40, ALT 35. These are similar to patient's previous values. Patient able to tolerate p.o. after 2nd dose of antiemetics. Resting calmly in bed, vital signs stable. Repeat abdominal exam is soft and nontender. Able to call for ride home. Vital Signs Vital signs: Vital Signs - 8 hr 11/03/23 00:50 11/03/23 00:53 11/03/23 01:00 Temperature 97.9 F Pulse Rate 95 H 92 H Respiratory Rate 22 Blood Pressure 142/102 H 174/107 H Pulse Oximetry 99 100 Oxygen Delivery Method Room Air 11/03/23 01:00 11/03/23 01:30 11/03/23 01:30 Temperature Pulse Rate 82 114 H Respiratory Rate Blood Pressure 196/98 H Pulse Oximetry 99 100 Oxygen Delivery Method 11/03/23 02:00 11/03/23 02:01 11/03/23 02:01 Temperature Pulse Rate 93 H 92 H Respiratory Rate Blood Pressure 106/60 Pulse Oximetry 94 96 Oxygen Delivery Method 11/03/23 02:30 11/03/23 02:30 11/03/23 03:00 Temperature Pulse Rate 90 Respiratory Rate Blood Pressure 99/61 166/90 H Pulse Oximetry 94 Oxygen Delivery Method 11/03/23 03:00 11/03/23 03:30 11/03/23 04:00 Temperature Pulse Rate 84 105 H 106 H Respiratory Rate Blood Pressure Pulse Oximetry 100 100 96 Oxygen Delivery Method 11/03/23 04:00 11/03/23 04:30 11/03/23 04:30 Temperature Pulse Rate 102 H Respiratory Rate Blood Pressure 114/59 L 126/65 Pulse Oximetry 95 Oxygen Delivery Method 11/03/23 05:00 11/03/23 05:30 11/03/23 05:30 Temperature Pulse Rate 88 101 H Respiratory Rate Blood Pressure 141/98 H Pulse Oximetry 99 96 Oxygen Delivery Method MDM - Abdominal Pain Lab Data 11/03/23 01:33 11/03/23 01:33 Labs: Lab Results 11/03/23 Range/Units 01:33 WBC 8.7 (4.5-11.0) X10^3/uL RBC 4.37 (4.0-5.2) X10^6/uL Hgb 14.2 (12.0-16.0) g/dL Hct 41.0 (36-46) % MCV 93.8 (80-100) fL MCH 32.5 (26-34) PG MCHC 34.7 (30-36) % RDW 13.1 (11.6-14.8) % Plt Count 289 (150-400) X10^3/uL Neut % (Auto) 84.2 H (50-75) % Lymph % (Auto) 9.8 L (25-40) % [place] % (Auto) 4.9 (3-14) % Eos % (Auto) 0.0 L (2-4) % Baso % (Auto) 1.1 (0-2) % Neut # (Auto) 7300 H (1156-8738) /uL Lymph # (Auto) 900 L (1647-3471) /uL [place] # (Auto) 400 (0-900) /uL Eos # (Auto) 0 (0-450) /uL Baso # (Auto) 100 (0-100) /uL Sodium 140 (137-145) mmol/L Potassium 3.2 L (3.4-5.1) mmol/L Chloride 95 L (98-107) mmol/L Carbon Dioxide 26 (22-32) mmol/L BUN 18 H (7-17) mg/dL Creatinine 0.89 (0.52-1.04) mg/dL Estimated GFR > 60 (>60) mL/min BUN/Creatinine Ratio 20.2 (6-22) Glucose 184 H (70-100) mg/dL Calcium 11.1 H (8.4-10.2) mg/dL Magnesium 1.8 (1.6-2.3) mg/dL Total Bilirubin 1.4 H (0.2-1.3) mg/dL AST 40 H (14-36) IU/L ALT 35 H (<35) IU/L Alkaline Phosphatase 91 (38-126) U/L Total Protein 10.1 H (6.3-8.2) g/dL Albumin 5.3 H (3.5-5.0) g/dL Globulin 4.8 H (1.7-4.1) g/dL Albumin/Globulin Ratio 1.1 (1.0-2.8) Lipase 110 (23-300) U/L Discharge Plan Departure Patient Disposition: Home Clinical Impression: Abdominal pain, Cyclic vomiting syndrome, Nausea and vomiting Instructions: DI for Cyclic Vomiting Syndrome-Adult Prescriptions: No Action ondansetron 4 mg tablet,disintegrating 4 mg PO Q8H PRN (Reason: nausea and vomiting) Qty: 10 0RF ibuprofen 200 mg tablet 400 mg PO Q6H Qty: 60 0RF acetaminophen [Tylenol] 325 mg capsule 650 mg PO QID PRN (Reason: pain) Qty: 60 0RF haloperidol 2 mg tablet 2 mg PO Q6H PRN (Reason: nausea and vomiting) Qty: 10 0RF promethazine 12.5 mg tablet 12.5 mg PO Q6H PRN (Reason: nausea and vomiting) Qty: 30 0RF Rx Instructions: 3 doses during day; last dose no later than 4 hr before bedtime ondansetron 4 mg tablet,disintegrating 4 mg PO Q4H PRN (Reason: nausea and vomiting) Qty: 30 0RF Rx Instructions: give 1st dose 30min before emetogenic chemo ondansetron 4 mg tablet,disintegrating 4 mg PO Q8H PRN (Reason: nausea and vomiting) Qty: 20 0RF promethazine 25 mg suppository 25 mg KS Q6H PRN (Reason: nausea and vomiting) Qty: 12 0RF promethazine 25 mg suppository 25 mg KS Q4-6H PRN (Reason: nausea and vomiting) Qty: 12 0RF Referrals: Joanna Storm MD [Primary Care Provider] - Stand Alone Forms: Patient Portal/API
[2023-11-03] MEDS: SODIUM CHLORIDE 0.9% 1,000 ML 1000 ML IV (01:27)
[2023-11-03] MEDS: DROPERIDOL 5 MG/2 ML VIAL 2.5 MG IV ×2 (01:29→03:23)
[2023-11-03 01:46] LABS: Add Manual Diff / Slide Review NO; Basophils Absolute Auto 100 /uL (0-100); Basophils Percent Auto 1.1 % (0-2); Eosinophils Absolute Auto 0 /uL (0-450); Hemoglobin 14.2 g/dL (12.0-16.0); Lymphocytes Absolute Auto 900 /uL (1100-4500); Lymphocytes Percent Auto 9.8 % (25-40); Mean Corpuscular HGB Conc 34.7 % (30-36); Mean Corpuscular Hemoglobin 32.5 PG (26-34); Mean Corpuscular Volume 93.8 fL (80-100); Monocytes Absolute Auto 400 /uL (0-900); Monocytes Percent Auto 4.9 % (3-14); Neutrophils Absolute Auto 7300 /uL (1500-7000); Neutrophils Percent Auto 84.2 % (50-75); Platelet Count 289 X10^3/uL (150-400); Red Blood Cell Count 4.37 X10^6/uL (4.0-5.2); Red Cell Distribution Width 13.1 % (11.6-14.8); White Blood Cell Count 8.7 X10^3/uL (4.5-11.0)
[2023-11-03 02:02] LABS: Albumin 5.3 g/dL (3.5-5.0); Albumin Globulin Ratio 1.1 (1.0-2.8); Alkaline Phosphatase 91 U/L (38-126); Aspartate Aminotransferase 40 IU/L (14-36); BUN Creatinine Ratio 20.2 (6-22); Bilirubin Total 1.4 mg/dL (0.2-1.3); Blood Urea Nitrogen 18 mg/dL (7-17); Calcium 11.1 mg/dL (8.4-10.2); Carbon Dioxide 26 mmol/L (22-32); Chloride 95 mmol/L (98-107); Estimated Glomerular Filt Rate > 60 mL/min (>60); Globulin 4.8 g/dL (1.7-4.1); Glucose 184 mg/dL (70-100); HEMOLYSIS 38 (0-50); Lipase 110 U/L (23-300); Magnesium 1.8 mg/dL (1.6-2.3); Potassium 3.2 mmol/L (3.4-5.1); Sodium 140 mmol/L (137-145); Total Protein 10.1 g/dL (6.3-8.2)
[2023-11-03 02:08] LABS: Alanine Aminotransferase 35 IU/L (<35)
== END 2023-11-03 06:34 | disposition home or self-care (01) ==
PROVIDERS: Emergency Provider Emergency Medicine; Family Provider Internal Medicine; PCP Internal Medicine
DX: R10.9 Unspecified abdominal pain (principal); R11.2 Nausea with vomiting, unspecified; R11.15 Cyclical vomiting syndrome unrelated to migraine
CPT/HCPCS: 36415; 80053; 83690; 83735; 85025; 93005; 96361; 96374; 96376; 99284; J1790

== ENCOUNTER 2024-02-24 08:35 | Emergency (ER) | payer MEDICAID, SELFPAY ==
[2023-07-12 09:46] VITALS: PULSE 63; RESP 16; O2SAT 100; BMI 22.9
[2024-02-24 08:47] VITALS: BP 155/96; PULSE 98; RESP 17; TEMP 36.4; O2SAT 99; BMI 25.1
--- NOTE | 2024-02-24 09:17 | ED.EXTPRO ---
HPI - Extremity Problem General Chief complaint: Extremity Problem,Nontraumatic Stated complaint: Swelling in hands, under eyes Time Seen by Provider: 02/24/24 08:37 Source: patient Mode of arrival: Ambulatory History of Present Illness HPI Narrative: 48-year-old female presents for bilateral hand swelling and swelling underneath her eyes. Patient states she went to bed feeling normally, but when she woke up she noticed her hands and eyes were swollen. Patient was tearful, crying. She does have indentations in her finger from where rings use to be worn. Related Data Previous Rx's Medication Instructions Recorded ondansetron 4 mg disintegrating 4 mg PO Q4H PRN nausea and 08/04/23 tablet vomiting 3 doses #30 tabs Allergies Allergy/AdvReac Type Severity Reaction Status Date / Time latex [LATEX] Allergy Unknown Verified 02/24/24 08:54 metoclopramide AdvReac Unknown DYSTONIA Verified 02/24/24 08:54 [METOCLOPRAMIDE] Review of Systems Review of Systems Narrative: Negative except as noted above Patient History Medical History Family history of angioedema MRSA (methicillin resistant staph aureus) culture positive Abscess Marijuana use, continuous Chronic abdominal pain Pancreatitis Cyclic vomiting syndrome Surgical History Hx of appendectomy Hx of cholecystectomy Family History Father Hypertension Mother Diabetes mellitus Daughter Angio-edema Other Colon cancer Social History household members: spouse Smoking Status: Current every day smoker alcohol intake: current Smoking Status: Current every day smoker tobacco type: vaping alcohol intake frequency: 3 or more drinks per day Alcohol type: wine Substance Use Type: former substance user and marijuana Exam Initial Vital Signs Initial Vital Signs: Vital Signs Temperature 97.6 F 02/24/24 08:47 Pulse Rate 98 H 02/24/24 08:47 Respiratory Rate 17 02/24/24 08:47 Blood Pressure 155/96 H 02/24/24 08:47 Pulse Oximetry 99 02/24/24 08:47 Oxygen Delivery Method Room Air 02/24/24 08:47 Const: Awake, alert, tearful, nontoxic Cardiac: regular rate, regular rhythm RESP: unlabored, clear bilaterally, no wheezing GI: Soft, nontender, nondistended, no rebound, no guarding MSK: Mild swelling noted in bilateral hands and fingers, full ROM Skin: Warm, Dry, intact, no rashes Neuro: AO x3, CN II-XII grossly intact, moves all extremities Course Orders Ordered: ED Orders 02/24/24 08:52 UA Complete [Urinalysis and Microscopic] Stat 02/24/24 09:38 CBC Auto Diff [Complete Blood Count AUTO DIFF] Stat CMP [Comprehensive Metabolic Panel] Stat Vital Signs Vital signs: Vital Signs - 8 hr 02/24/24 08:47 Temperature 97.6 F Pulse Rate 98 H Respiratory Rate 17 Blood Pressure 155/96 H Pulse Oximetry 99 Oxygen Delivery Method Room Air MDM - Extremity (Nontraumatic) Lab Data 02/24/24 09:38 02/24/24 09:38 Labs: Lab Results 02/24/24 Range/Units 09:38 WBC 4.7 (4.5-11.0) X10^3/uL RBC 3.58 L (4.0-5.2) X10^6/uL Hgb 11.8 L (12.0-16.0) g/dL Hct 34.9 L (36-46) % MCV 97.4 (80-100) fL MCH 32.9 (26-34) PG MCHC 33.8 (30-36) % RDW 13.1 (11.6-14.8) % Plt Count 212 (150-400) X10^3/uL Neut % (Auto) 67.4 (50-75) % Lymph % (Auto) 24.8 L (25-40) % [place] % (Auto) 5.4 (3-14) % Eos % (Auto) 1.3 L (2-4) % Baso % (Auto) 1.1 (0-2) % Neut # (Auto) 3200 (2168-5472) /uL Lymph # (Auto) 1200 (4463-2263) /uL [place] # (Auto) 300 (0-900) /uL Eos # (Auto) 100 (0-450) /uL Baso # (Auto) 100 (0-100) /uL Sodium 139 (137-145) mmol/L Potassium 3.8 (3.4-5.1) mmol/L Chloride 109 H (98-107) mmol/L Carbon Dioxide 25 (22-32) mmol/L BUN 10 (7-17) mg/dL Creatinine 0.65 (0.52-1.04) mg/dL Estimated GFR > 60 (>60) mL/min BUN/Creatinine Ratio 15.4 (6-22) Glucose 151 H (70-100) mg/dL Calcium 9.1 (8.4-10.2) mg/dL Total Bilirubin 0.4 (0.2-1.3) mg/dL AST 27 (14-36) IU/L ALT 24 (<35) IU/L Alkaline Phosphatase 83 (38-126) U/L Total Protein 7.4 (6.3-8.2) g/dL Albumin 4.0 (3.5-5.0) g/dL Globulin 3.4 (1.7-4.1) g/dL Albumin/Globulin Ratio 1.2 (1.0-2.8) MDM Narrative Medical decision making narrative: Well-appearing patient with very mild swelling of bilateral hands and puffiness under her eyes. Patient states she did drink alcohol the night before but her usual amount. Laboratory work is unremarkable, patient unable to provide specimen and told nursing staff that she did not want to stay all day to provide a urine sample, and so this was not collected. Patient counseled to decrease alcohol intake and to monitor her sodium intake to see if this helps her swelling. Primary care doctor follow up advised. Discharge Plan Departure Patient Disposition: Home Clinical Impression: Bilateral hand swelling Instructions: Edema Activity Restrictions/Additional Instructions: Your laboratory work today was normal. I do not know the cause of your swelling. Decrease your alcohol and sodium intake. Prescriptions: No Action ondansetron 4 mg tablet,disintegrating 4 mg PO Q4H PRN (Reason: nausea and vomiting) Qty: 30 0RF Rx Instructions: give 1st dose 30min before emetogenic chemo Referrals: Joanna Storm MD [Primary Care Provider] - Stand Alone Forms: Patient Portal/API
--- NOTE | 2024-02-24 09:35 | PC.NURSE ---
MIld swelling noted to bilateral hands, Indentation from where rings were worn. CMS intact. Reports waking up this way. Some redness under eyes as well.
[2024-02-24 09:51] LABS: Add Manual Diff / Slide Review NO; Basophils Absolute Auto 100 /uL (0-100); Basophils Percent Auto 1.1 % (0-2); Eosinophils Absolute Auto 100 /uL (0-450); Eosinophils Percent Auto 1.3 % (2-4); Hematocrit 34.9 % (36-46); Hemoglobin 11.8 g/dL (12.0-16.0); Lymphocytes Absolute Auto 1200 /uL (1100-4500); Lymphocytes Percent Auto 24.8 % (25-40); Mean Corpuscular HGB Conc 33.8 % (30-36); Mean Corpuscular Hemoglobin 32.9 PG (26-34); Mean Corpuscular Volume 97.4 fL (80-100); Monocytes Absolute Auto 300 /uL (0-900); Monocytes Percent Auto 5.4 % (3-14); Neutrophils Absolute Auto 3200 /uL (1500-7000); Neutrophils Percent Auto 67.4 % (50-75); Platelet Count 212 X10^3/uL (150-400); Red Blood Cell Count 3.58 X10^6/uL (4.0-5.2); Red Cell Distribution Width 13.1 % (11.6-14.8); White Blood Cell Count 4.7 X10^3/uL (4.5-11.0)
[2024-02-24 09:59] LABS: Alanine Aminotransferase 24 IU/L (<35); Albumin Globulin Ratio 1.2 (1.0-2.8); Alkaline Phosphatase 83 U/L (38-126); Aspartate Aminotransferase 27 IU/L (14-36); BUN Creatinine Ratio 15.4 (6-22); Bilirubin Total 0.4 mg/dL (0.2-1.3); Blood Urea Nitrogen 10 mg/dL (7-17); Calcium 9.1 mg/dL (8.4-10.2); Carbon Dioxide 25 mmol/L (22-32); Chloride 109 mmol/L (98-107); Estimated Glomerular Filt Rate > 60 mL/min (>60); Globulin 3.4 g/dL (1.7-4.1); Glucose 151 mg/dL (70-100); HEMOLYSIS 29 (0-50); Potassium 3.8 mmol/L (3.4-5.1); Sodium 139 mmol/L (137-145); Total Protein 7.4 g/dL (6.3-8.2)
--- NOTE | 2024-02-24 10:22 | PC.NURSE ---
Patient provided water to assist with UA collection I may not have to pee for 8 hrs I am not going to sit in here for 8 fucking hours Provider updated
[2024-02-24 10:45] VITALS: BP 142/96; PULSE 72; RESP 16; O2SAT 98
== END 2024-02-24 10:45 | disposition home or self-care (01) ==
PROVIDERS: Emergency Provider Emergency Medicine; Family Provider Internal Medicine; PCP Internal Medicine
DX: M79.89 Other specified soft tissue disorders (principal)
CPT/HCPCS: 36415; 80053; 85025; 99283

== ENCOUNTER 2024-03-20 10:56 | Observation (INO) | payer OTHER, MEDICAID, SELFPAY ==
[2023-07-12 09:46] VITALS: PULSE 63; RESP 16; O2SAT 100; BMI 22.9
[2024-03-20] VITALS (69 sets, daily range): BP systolic 132–217; BP diastolic 84–123; PULSE 79–124; RESP 14–35; TEMP 37.1; O2SAT 83–100; BMI 25.8
--- NOTE | 2024-03-20 12:57 | DI.RAD.S_ITS ---
PROCEDURE: XR CHEST 1V INDICATIONS: chest pain TECHNIQUE: One view of the chest was acquired. COMPARISON: [facility], CR, XR CHEST 1V, 07/13/2023, 12:21. [facility], CR, XR CHEST 1V, 10/16/2022, 14:13. FINDINGS: Surgical changes and devices: None. Lungs and pleura: Lungs are clear. No pleural effusions or pneumothorax. Mediastinum: Mediastinal contours appear normal. Heart size is normal. Bones and chest wall: No suspicious bony lesions. Overlying soft tissues appear unremarkable. IMPRESSION: No acute cardiopulmonary abnormality is seen. Dictated by: Jacinto Tamez M.D. on 03/20/2024 at 13:35 Approved by: Jacinto Tamez M.D. on 03/20/2024 at 13:47
--- NOTE | 2024-03-20 12:57 | DI.CT.S_ITS ---
PROCEDURE: CT ABDOMEN PELVIS W CON INDICATIONS: LUQ pain TECHNIQUE: After the administration of intravenous contrast, axial sections acquired from the lung bases to the pubic symphysis. Coronal and sagittal reformats were performed. For radiation dose reduction, the following was used: automated exposure control, adjustment of mA and/or kV according to patient size. COMPARISON: [facility], CT, CT ABDOMEN PELVIS W CON, 08/22/2023, 3:52. FINDINGS: Image quality: Diagnostic. Lower Chest: No significant findings. ABDOMEN: Liver: No solid mass. Gallbladder: Surgically absent. Biliary ducts: No biliary dilation. Pancreas: No ductal dilation. Spleen: Size is within normal limits. Adrenal Glands: No adrenal nodules. Kidneys and Ureters: No hydronephrosis. No solid mass. No complex renal cystic lesion which requires follow up. Stomach and Bowel: Normal colonic caliber, without significant wall thickening. Peritoneum: No abnormal intraperitoneal fluid. No free air. Ventral Wall: No significant ventral hernia. Abdominal Nodes: No retroperitoneal or mesenteric adenopathy by size criteria. Vessels: Aorta and inferior vena cava are normal in size. Again seen calcified splenic artery aneurysm measuring 2.2 centimeters. Atherosclerotic vascular calcification. PELVIS: Pelvic Organs: Intrauterine device in place. Bladder: No bladder wall thickening, accounting for underdistention. Pelvic Nodes: No enlarged lymph nodes. Miscellaneous: No inguinal hernias are seen. Bones: No aggressive osseous abnormality. Degenerative changes of the spine. IMPRESSION: 1. No acute findings to explain patient's symptoms. 2. Stable splenic artery aneurysm measuring approximately 2.2 centimeters. Recommend nonurgent vascular referral if not already obtained. Dictated by: Jacinto Tamez M.D. on 03/20/2024 at 14:54 Approved by: Jacinto Tamez M.D. on 03/20/2024 at 14:58
[2024-03-20 13:08] LABS: Add Manual Diff / Slide Review NO; Basophils Absolute Auto 100 /uL (0-100); Basophils Percent Auto 0.7 % (0-2); Eosinophils Absolute Auto 0 /uL (0-450); Hemoglobin 14.2 g/dL (12.0-16.0); Lymphocytes Absolute Auto 1200 /uL (1100-4500); Lymphocytes Percent Auto 15.2 % (25-40); Mean Corpuscular HGB Conc 34.7 % (30-36); Mean Corpuscular Hemoglobin 32.5 PG (26-34); Mean Corpuscular Volume 93.8 fL (80-100); Monocytes Absolute Auto 700 /uL (0-900); Monocytes Percent Auto 8.7 % (3-14); Neutrophils Absolute Auto 5800 /uL (1500-7000); Neutrophils Percent Auto 75.4 % (50-75); Platelet Count 298 X10^3/uL (150-400); Red Blood Cell Count 4.37 X10^6/uL (4.0-5.2); Red Cell Distribution Width 12.9 % (11.6-14.8); White Blood Cell Count 7.8 X10^3/uL (4.5-11.0)
--- NOTE | 2024-03-20 13:12 | PC.NURSE ---
Addendum entered by Nancy Rosales R.N. 03/20/24 13:45: late entry: pt is poor historian. states she has been having abdominal pain but cannot tell me how long it has been going on. states it is worse when she eats, which makes her throw up. today she started having chest pain and feeling like she cannot breathe. brought to ER by daughter. patient is very agitated, pacing room, hyperventilating and barely able to follow commands. asked multiple times if she has had any medications today or drugs. did endorse at different time that she took some marijuana today and zofran but does not say when or how much. one IV attempted, during IV atttempt pt breathing was calm, she was appropriate and able to follow commands. ultrasound was requested. when i returned to the room with the ultrasound, pt was asleep and barely rousable. notified provider and asked daughter if this was normal for her. daughter states i think she just doesn't feel well. verbal order to hold on ativan until pt is more rousable given. later, provider went into room to speak with patient and patient again began agitated and restless. hyperventilating, not follow commands and acting inappropriate. patient went to go to bathroom and stated she needed to urinate, then threw urine cup and turned on shower, pt told nurse she needed to shower to feel better right now. patient informed it is an inappropriate time to shower, that we needed to do an EKG and CT scan to find out what is going on so we can help her feel better. she stated well you arent doing those right now so i am getting in the shower. pt told we dont have soap, towels or anything available, pt did not care, told me to fuck off pt then proceeded to get undressed and take shower. door was left open to be visualized. Security called in case patient continued to be agitated. pt then dressed herself and continued to pace room. told pt we need to do EKG, she was able to hold still for this procedure on second attempt. IV fluids ordered. explained to patient she is unable to pace room if she is hooked up to IV fluids or she might pull out her IV. she states she is okay if she lays down. patient continually coached throughout stay to try and deep breath into her nose and out through her mouth. 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 pt told to stop and this is not okay. she then yelled how would i know that if you didn't tell me. asked pt why she would not ask me for water. pt states because you dont give a fuck about me. verbal okay to continue previous order for ativan. called and spoke to charge nurse Mireya about transfer to room in main ED as patient's labs have come back critically low and monitor is required for heart and oxygen. also visual room to be monitored for inappropriate behavior. patient transferred to [facility] room 12 Original Note: upon arrival pt was hyperventilating and agitated.
[2024-03-20 13:13] LABS: Albumin 5.5 g/dL (3.5-5.0); Albumin Globulin Ratio 1.1 (1.0-2.8); Alkaline Phosphatase 89 U/L (38-126); Aspartate Aminotransferase 33 IU/L (14-36); BUN Creatinine Ratio 23.5 (6-22); Bilirubin Total 1.4 mg/dL (0.2-1.3); Blood Urea Nitrogen 24 mg/dL (7-17); Calcium 10.6 mg/dL (8.4-10.2); Carbon Dioxide 32 mmol/L (22-32); Chloride 88 mmol/L (98-107); Creatine Kinase 69 U/L (30-135); Estimated Glomerular Filt Rate > 60 mL/min (>60); Ethanol (ETOH) < 10 mg/dL; Globulin 4.8 g/dL (1.7-4.1); Glucose 117 mg/dL (70-100); HEMOLYSIS < 15 (0-50); Lipase 81 U/L (23-300); Sodium 136 mmol/L (137-145); Total Protein 10.3 g/dL (6.3-8.2)
[2024-03-20] MEDS: KETOROLAC 30 MG/ML VIAL 15 MG IV (13:17)
[2024-03-20 13:18] LABS: Lactate (Lactic Acid) 5.6 mmol/L (0.7-2.1); Potassium 2.6 mmol/L (3.4-5.1)
[2024-03-20 13:19] LABS: Alanine Aminotransferase 27 IU/L (<35)
[2024-03-20] MEDS: SODIUM CHLORIDE 0.9% 1,000 ML 1000 ML IV ×3 (13:21→19:20)
[2024-03-20 13:23] LABS: Troponin I < 0.012 ng/mL (0.01-0.034)
--- NOTE | 2024-03-20 13:28 | ED_ITS ---
HPI - Chest Pain General Chief Complaint: Chest Pain Stated Complaint: hyperventilating Time Seen by Provider: 03/20/24 11:24 Source: patient Mode of arrival: Ambulatory Limitations: no limitations History of Present Illness HPI narrative: 48-year-old woman with a reported history of cyclic vomiting, she does use marijuana and occasionally finds that hot showers are helpful. On arrival today patient has fairly dramatic affect and behavior with difficulty in sitting still. This is consistent with prior visits. Related Data Previous Rx's Medication Instructions Recorded ondansetron 4 mg disintegrating 4 mg PO Q4H PRN nausea and 08/04/23 tablet vomiting 3 doses #30 tabs Allergies Allergy/AdvReac Type Severity Reaction Status Date / Time latex [LATEX] Allergy Unknown Verified 02/24/24 08:54 metoclopramide AdvReac Unknown DYSTONIA Verified 02/24/24 08:54 [METOCLOPRAMIDE] Review of Systems Review of Systems Narrative: Pertinent positive and negative findings as per HPI Patient History Medical History Family history of angioedema MRSA (methicillin resistant staph aureus) culture positive Abscess Marijuana use, continuous Chronic abdominal pain Pancreatitis Cyclic vomiting syndrome Surgical History Hx of appendectomy Hx of cholecystectomy Family History Father Hypertension Mother Diabetes mellitus Daughter Angio-edema Other Colon cancer Social History household members: spouse Smoking Status: Current every day smoker alcohol intake: current Smoking Status: Current every day smoker tobacco type: vaping alcohol intake frequency: 3 or more drinks per day Alcohol type: wine Substance Use Type: marijuana and crack/cocaine Exam Initial Vital Signs Initial Vital Signs: Vital Signs Temperature 98.8 F 03/20/24 11:31 Pulse Rate 124 H 03/20/24 11:31 Respiratory Rate 28 H 03/20/24 11:31 Blood Pressure 175/112 H 03/20/24 11:31 Pulse Oximetry 100 03/20/24 11:31 Oxygen Delivery Method Room Air 03/20/24 11:31 General: Chronically ill-appearing, agitated with obvious abdominal pain and difficulty settling and allowing full exam and evaluation HEENT: Moist mucous membranes, normal sclera with reactive pupils, Respiratory: Lungs are clear to auscultation, no wheezing no rales no rhonchi. Full and symmetrical air movement Cardiac: Tachycardic with otherwise Regular rate and rhythm no murmurs no bruits Abdomen: Soft, mild diffuse tenderness but no rebound or guarding, no obvious flank pain appreciated Skin: Warm and dry, no rashes, bruises in various stages of healing Neurologic: Freely moving all extremities. Extremities: No obvious injuries. Muscle spasms in her hands with mild hyperemia in the hands and the feet both Psych: Dramatic effective behavior, poor overall insight Course Orders Ordered: ED Orders 03/20/24 12:04 CBC Auto Diff [Complete Blood Count AUTO DIFF] Stat CMP [Comprehensive Metabolic Panel] Stat ETOH [Ethanol (ETOH)] Stat Lactate (Lactic Acid) Stat Lipase Stat Magnesium Stat PHOS [Phosphorous] Stat Troponin & CK Cardiac Panel Stat 03/20/24 12:57 CT abdomen pelvis w con Stat XR chest 1V Stat Urine Drug Screen, Rapid Stat EKG-12 Lead Stat 03/20/24 13:36 urine tox [Urine Drug Screen, Rapid] Stat 03/20/24 17:04 NT-proBNP (BNP-Adult 18+) Stat Hydromorphone HCl (Hydromorphone 0.5 Mg Inj) 0.5 mg IV Q15MIN PRN PRN Reason: Pain, POTASSIUM CHLORIDE IN WATER (Potassium Cl 10 Meq/100 Ml Megan) 10 meq in 100 mls @ 100 mls/hr IV Q1H LINDA Stop: 03/20/24 17:29 Last Admin: 03/20/24 15:55 Dose: 100 mls/hr POTASSIUM CHLORIDE IN WATER (Potassium Cl 10 Meq/100 Ml Megan) 10 meq in 100 mls @ 100 mls/hr IV Q1H LINDA Stop: 03/20/24 17:14 Discontinued Medications Sodium Chloride (Normal Saline 0.9%) 1,000 mls @ 1,000 mls/hr IV BOLUS ONE Stop: 03/20/24 14:10 Last Admin: 03/20/24 13:21 Dose: 1,000 mls/hr Documented By: ZACHARY Sodium Chloride (Normal Saline 0.9%) 1,000 mls @ 1,000 mls/hr IV BOLUS ONE Stop: 03/20/24 14:36 Last Admin: 03/20/24 15:04 Dose: 1,000 mls/hr Sodium Chloride (Normal Saline 0.9%) 1,000 mls @ 1,000 mls/hr IV BOLUS ONE Stop: 03/20/24 16:10 Ketorolac Tromethamine (Ketorolac 30 Mg/Ml Vial) 15 mg IV NOW ONE Stop: 03/20/24 13:12 Last Admin: 03/20/24 13:17 Dose: 15 mg Documented By: ZACHARY Labetalol HCl (Labetalol 20 Mg/4 Ml Syringe) 10 mg IV NOW ONE Stop: 03/20/24 14:58 Last Admin: 03/20/24 15:45 Dose: 10 mg Lorazepam (Lorazepam 2 Mg/Ml Inj) 1 mg IV NOW ONE Stop: 03/20/24 11:31 Last Admin: 03/20/24 13:36 Dose: 1 mg Potassium Chloride (Potassium Chloride 20 Meq Tab) 40 meq PO NOW ONE Stop: 03/20/24 14:58 Last Admin: 03/20/24 15:32 Dose: 40 meq Vital Signs Vital signs: Vital Signs - 8 hr 03/20/24 11:31 03/20/24 14:20 03/20/24 14:30 Temperature 98.8 F Pulse Rate 124 H 100 H 102 H Respiratory Rate 28 H 26 H 26 H Blood Pressure 175/112 H Pulse Oximetry 100 98 98 Oxygen Delivery Method Room Air Nasal Cannula Nasal Cannula Oxygen Flow Rate 4 4 03/20/24 14:35 03/20/24 14:40 03/20/24 14:45 Temperature Pulse Rate 103 H 101 H 102 H Respiratory Rate 26 H 26 H 25 H Blood Pressure Pulse Oximetry 98 98 99 Oxygen Delivery Method Nasal Cannula Nasal Cannula Nasal Cannula Oxygen Flow Rate 4 4 4 03/20/24 14:50 03/20/24 14:55 03/20/24 14:56 Temperature Pulse Rate 97 H 83 85 Respiratory Rate 23 26 H 27 H Blood Pressure 165/103 H Pulse Oximetry 100 100 100 Oxygen Delivery Method Nasal Cannula Nasal Cannula Nasal Cannula Oxygen Flow Rate 4 4 4 03/20/24 15:00 03/20/24 15:05 03/20/24 15:10 Temperature Pulse Rate 96 H 100 H 101 H Respiratory Rate 26 H 26 H 24 Blood Pressure Pulse Oximetry 99 98 98 Oxygen Delivery Method Room Air Nasal Cannula Oxygen Flow Rate 2 03/20/24 15:15 03/20/24 15:20 03/20/24 15:25 Temperature Pulse Rate 101 H 88 89 Respiratory Rate 25 H 25 H 27 H Blood Pressure Pulse Oximetry 98 99 98 Oxygen Delivery Method Oxygen Flow Rate 03/20/24 15:30 03/20/24 15:35 03/20/24 15:40 Temperature Pulse Rate 93 H 81 95 H Respiratory Rate 27 H 29 H Blood Pressure Pulse Oximetry 98 100 Oxygen Delivery Method Oxygen Flow Rate 03/20/24 15:43 03/20/24 15:43 03/20/24 15:45 Temperature Pulse Rate 79 81 Respiratory Rate Blood Pressure 217/110 H 217/116 H Pulse Oximetry 96 Oxygen Delivery Method Oxygen Flow Rate 03/20/24 15:45 03/20/24 15:50 03/20/24 15:50 Temperature Pulse Rate 81 86 Respiratory Rate 32 H 33 H Blood Pressure Pulse Oximetry 99 98 83 L Oxygen Delivery Method Room Air Oxygen Flow Rate 03/20/24 15:52 03/20/24 15:52 03/20/24 15:55 Temperature Pulse Rate 90 Respiratory Rate Blood Pressure 189/114 H Pulse Oximetry 99 97 Oxygen Delivery Method Room Air Oxygen Flow Rate 03/20/24 15:55 03/20/24 16:00 03/20/24 16:00 Temperature Pulse Rate 85 82 Respiratory Rate 25 H Blood Pressure 192/121 H Pulse Oximetry 99 98 Oxygen Delivery Method Nasal Cannula Oxygen Flow Rate 2 03/20/24 16:05 03/20/24 16:05 03/20/24 16:10 Temperature Pulse Rate 80 Respiratory Rate 25 H Blood Pressure 191/112 H 184/118 H Pulse Oximetry 100 Oxygen Delivery Method Nasal Cannula Oxygen Flow Rate 2 03/20/24 16:10 03/20/24 16:15 03/20/24 16:16 Temperature Pulse Rate 84 85 Respiratory Rate 26 H 27 H Blood Pressure 180/106 H Pulse Oximetry 99 99 Oxygen Delivery Method Oxygen Flow Rate 03/20/24 16:16 03/20/24 16:20 03/20/24 16:20 Temperature Pulse Rate 84 80 Respiratory Rate 28 H 27 H Blood Pressure 177/107 H Pulse Oximetry 99 99 Oxygen Delivery Method Nasal Cannula Nasal Cannula Oxygen Flow Rate 2 2 03/20/24 16:25 03/20/24 16:25 03/20/24 16:30 Temperature Pulse Rate 82 Respiratory Rate 28 H Blood Pressure 155/99 H 141/89 H Pulse Oximetry 99 Oxygen Delivery Method Oxygen Flow Rate 03/20/24 16:30 Temperature Pulse Rate 83 Respiratory Rate Blood Pressure Pulse Oximetry 98 Oxygen Delivery Method Nasal Cannula Oxygen Flow Rate 2 MDM - Chest Pain Lab Data 03/20/24 12:04 03/20/24 12:04 Labs: Lab Results 03/20/24 03/20/24 Range/Units 12:04 15:25 WBC 7.8 (4.5-11.0) X10^3/uL RBC 4.37 (4.0-5.2) X10^6/uL Hgb 14.2 (12.0-16.0) g/dL Hct 41.0 (36-46) % MCV 93.8 (80-100) fL MCH 32.5 (26-34) PG MCHC 34.7 (30-36) % RDW 12.9 (11.6-14.8) % Plt Count 298 (150-400) X10^3/uL Neut % (Auto) 75.4 H (50-75) % Lymph % (Auto) 15.2 L (25-40) % [place] % (Auto) 8.7 (3-14) % Eos % (Auto) 0.0 L (2-4) % Baso % (Auto) 0.7 (0-2) % Neut # (Auto) 5800 (8263-7738) /uL Lymph # (Auto) 1200 (1557-0265) /uL [place] # (Auto) 700 (0-900) /uL Eos # (Auto) 0 (0-450) /uL Baso # (Auto) 100 (0-100) /uL Sodium 136 L (137-145) mmol/L Potassium 2.6 L* (3.4-5.1) mmol/L Chloride 88 L (98-107) mmol/L Carbon Dioxide 32 (22-32) mmol/L BUN 24 H (7-17) mg/dL Creatinine 1.02 (0.52-1.04) mg/dL Estimated GFR > 60 (>60) mL/min BUN/Creatinine Ratio 23.5 H (6-22) Glucose 117 H (70-100) mg/dL Lactate 5.6 H* 1.3 (0.7-2.1) mmol/L Calcium 10.6 H (8.4-10.2) mg/dL Phosphorus 2.8 (2.5-4.5) mg/dL Magnesium 1.9 (1.6-2.3) mg/dL Total Bilirubin 1.4 H (0.2-1.3) mg/dL AST 33 (14-36) IU/L ALT 27 (<35) IU/L Alkaline Phosphatase 89 (38-126) U/L Total Creatine Kinase 69 (30-135) U/L Troponin I < 0.012 (0.01-0.034) ng/mL NT-Pro-B Natriuret Pep Cancelled Total Protein 10.3 H (6.3-8.2) g/dL Albumin 5.5 H (3.5-5.0) g/dL Globulin 4.8 H (1.7-4.1) g/dL Albumin/Globulin Ratio 1.1 (1.0-2.8) Lipase 81 (23-300) U/L Ethyl Alcohol < 10 ( - 10) mg/dL Imaging Data CT scan - abdomen/pelvis: Radiologist's Impression: PROCEDURE: CT ABDOMEN PELVIS W CON INDICATIONS: LUQ pain TECHNIQUE: After the administration of intravenous contrast, axial sections acquired from the lung bases to the pubic symphysis. Coronal and sagittal reformats were performed. For radiation dose reduction, the following was used: automated exposure control, adjustment of mA and/or kV according to patient size. COMPARISON: [facility], CT, CT ABDOMEN PELVIS W CON, 08/22/2023, 3:52. FINDINGS: Image quality: Diagnostic. Lower Chest: No significant findings. ABDOMEN: Liver: No solid mass. Gallbladder: Surgically absent. Biliary ducts: No biliary dilation. Pancreas: No ductal dilation. Spleen: Size is within normal limits. Adrenal Glands: No adrenal nodules. Kidneys and Ureters: No hydronephrosis. No solid mass. No complex renal cystic lesion which requires follow up. Stomach and Bowel: Normal colonic caliber, without significant wall thickening. Peritoneum: No abnormal intraperitoneal fluid. No free air. Ventral Wall: No significant ventral hernia. Abdominal Nodes: No retroperitoneal or mesenteric adenopathy by size criteria. Vessels: Aorta and inferior vena cava are normal in size. Again seen calcified splenic artery aneurysm measuring 2.2 centimeters. Atherosclerotic vascular calcification. PELVIS: Pelvic Organs: Intrauterine device in place. Bladder: No bladder wall thickening, accounting for underdistention. Pelvic Nodes: No enlarged lymph nodes. Miscellaneous: No inguinal hernias are seen. Bones: No aggressive osseous abnormality. Degenerative changes of the spine. IMPRESSION: 1. No acute findings to explain patient's symptoms. 2. Stable splenic artery aneurysm measuring approximately 2.2 centimeters. Recommend nonurgent vascular referral if not already obtained. Dictated by: Jacinto Tamez M.D. on 03/20/2024 at 14:54 MDM Narrative Medical decision making narrative: CC: Abdominal pain with vomiting Complicating co-morbidities: Prior history of cyclic vomiting, multiple CT scans, Data collected from: patient Medical records reviewed: Prior ER notes with similar presentations to today are reviewed from November 03, September 30, August 22 Differential considered: Cannabinoid hyperemesis syndrome, bowel obstruction, acute appendicitis, pancreatitis, viral syndrome Exam documented above, pertinent findings include: Diffuse abdominal pain, significant agitation, tachycardia, hypertension Lab Test results independently reviewed as above. Pertinent findings: CBC is unremarkable, no leukocytosis no acute anemia Metabolic panel shows a critically low potassium at 2.6, renal function is appropriate. Anion gap is calculated at 16 Lactic acid significantly elevated at 5.6 and after 2 L hydration is down to 1.3. Troponin is undetectable Lipase is appropriate Independently reviewed EKG: Sinus tachycardia at 110, biatrial enlargement, ST depression laterally Imaging studies independently reviewed: CT scan of the abdomen and pelvis does not show acute abnormalities Consultations: Treatments: Patient is given 2 L of fluid, 10 mg of IV potassium to start. She was given IV Ativan which did help calm her enough to do a CT scan of the abdomen. She is now quite somnolent. She does not have any pain behaviors with exam while she is sleeping. Vomiting has been adequately controlled Re-evaluations: On initial evaluation, there is no evidence for infectious etiology. With the vomiting and abdominal pain more significant bowel involvement such as bowel infarct or obstruction as an explanation for the vomiting and significant elevated lactic acid is entertained. I do not believe that antibiotics are indicated initially. After fluid resuscitation lactic will be rechecked. 3rd L of fluid given 430 patient is still so somnolent that she is not able to answer questions. She is protecting her airway. Findings reviewed with her daughter. Her daughter is concerned that her cyclic vomiting is getting out of control. The daughter notes she smokes marijuana daily but denies any other recreational drugs including methamphetamine. Daughter notes that her mother has had lifelong issues with cyclic vomiting. She states that her father told her that there was some blood in the stool last night. The daughter states that mom has not been eating well and will have episodes of diarrhea and constipation. Confirms absence of fever, cough, chills. Discussion: Patient presents with significant abdominal pain and vomiting. Significant dehydration and significant low potassium level. IV potassium, oral potassium, anxiety medications, 3 L of fluid are all given and still no urine output. Patient was able to be roused enough to take an oral potassium pill but after that went back to sleeping soundly. Continues to require 2 L of oxygen while she is sleeping. She was given a total of 1 mg of IV Ativan at 11:30 a.m. and continues to be significantly somnolent. Given her behaviors in the dramatic somnolence my suspicion for methamphetamine use is high. Patient's blood pressure is coming down with IV labetalol given. We will plan on hospital admission for hypokalemia, abdominal pain, persistent vomiting, dehydration and poorly controlled hypertension Critical Care Time Critical Care Time Critical Care Time: Yes Total Critical Care Time: 33 Attestation: Critical care time is separate from other billable procedures. There is a high probability of a significant, sudden or life-threatening deterioration that requires my full and direct attention, intervention and personal management. This critical care time includes consultation with family and other consulting doctors, review of records, and interpretation of data from labs, EKGs and imaging as well as managements of blood pressure with parenteral antihypertensives and parenteral replacement of electrolytes. Discharge Plan Departure Patient Disposition: Admitted as Observation Clinical Impression: Cyclic vomiting syndrome, Acute hypokalemia, Acute dehydration Nausea and vomiting Qualifiers: Vomiting type: unspecified Qualified Code(s): R11.2 - Nausea with vomiting, unspecified Abdominal pain Qualifiers: Abdominal location: generalized Qualified Code(s): R10.84 - Generalized abdominal pain Hypertension Qualifiers: Hypertension type: unspecified Qualified Code(s): I10 - Essential (primary) hypertension
[2024-03-20] MEDS: LORazepam 2 MG/ML INJ 1 MG IV (13:36)
[2024-03-20 13:53] LABS: Magnesium 1.9 mg/dL (1.6-2.3); Phosphorous 2.8 mg/dL (2.5-4.5)
[2024-03-20] MEDS: POTASSIUM CHLORIDE IN WATER 10 MEQ/100 ML PIGGYBACK 100 MEQ IV ×6 (14:38→22:51)
[2024-03-20 14:39] LABS: Reflexed Lactate in 2 Hours Y
[2024-03-20] MEDS: POTASSIUM CHLORIDE 20 MEQ TAB 40 MEQ PO (15:32)
[2024-03-20 15:43] LABS: Lactate 2HR (Lactic Acid Rflx) 1.3 mmol/L (0.7-2.1)
[2024-03-20] MEDS: LABETALOL 20 MG/4 ML SYRINGE 10 MG IV (15:45)
--- NOTE | 2024-03-20 15:45 | PC.NURSE ---
Pt is asleep in bed, chest rise and fall observed. Pt not easily arousable, does not open her eyes to verbal commands. Pt responsive to pressure on figernails, immediately waking up and stating it is painful. Pt labile, repositioning in bed, yelling. Pt able to wake up to take a sip of water and then take PO medications, see MAR. Pt layed back down. Pt's daughter and 2x children at bedside. Pt awakens to make adjustments to reposition in bed by herself. Lung sounds clear. Pt o2 on 2L NC 99% while sleeping. Pt trialed on room air while sleeping and oxygen saturation decreased to 83%. Pt placed back on 2L NC, o2 increased to 97%.
--- NOTE | 2024-03-20 17:23 | P.HP_ITS ---
History of Present Illness History of Present Illness Date Patient Seen: 03/20/24 Time Patient Seen: 17:24 Chief complaint: hyperventilating Narrative: The patient is a 48-year-old female with a history of cyclic vomiting. She presented to the emergency department today and was quite uncomfortable. She was also very restless. She was given a benzodiazepine at that time which ultimately has made her sedated for the rest of the afternoon. She was found to be profoundly volume depleted and was given 2 L of IV fluid with minimal effect on her urine output. She has a history of marijuana use, as well as vaping tobacco products and using daily wine. She also has a known history of chronic abdominal pain and pancreatitis as well as her cyclic vomiting syndrome. She was found to be hypokalemic and repletion was started in the emergency department. She has also been persistently hypertensive. A urine drug screen has not been obtain due to a lack of urine output. The notes that she was taken to the operating room about a year ago for possible intussusception or volvulus. There were no intraoperative findings. Since that time her pattern has changed and now she has periods of feeling well followed by periods of constipation followed by periods of diarrhea. She has been ill for about a day and a half. He notes that she stopped using marijuana for about 2 years and this had no real change in the overall pattern of her abdominal pain symptoms. She also does have a history of pancreatitis, the CT today was negative for clear evidence of pancreatitis. He also wonders about vascular causes of abdominal pain. He gave her a Phenergan suppository yesterday. He denies any rectal bleeding or hematemesis. She has been eating reasonably normally or last several days. He does note that she drinks about 3-4 12 oz beverages with about 12% alcohol in them a day as well. He also notes that she is chronically hypertensive. [facility] Medical History Family history of angioedema MRSA (methicillin resistant staph aureus) culture positive Abscess Marijuana use, continuous Chronic abdominal pain Pancreatitis Cyclic vomiting syndrome Surgical History Hx of appendectomy Hx of cholecystectomy Family History Father Hypertension Mother Diabetes mellitus Daughter Angio-edema Other Colon cancer Social History household members: spouse Smoking Status: Current every day smoker alcohol intake: current Meds Home Medications and Allergies Home Medications Medication Instructions Recorded Confirmed Type ondansetron 4 mg disintegrating 4 mg PO Q4H PRN nausea and 08/04/23 02/24/24 Rx tablet vomiting 3 doses #30 tabs Allergies Allergy/AdvReac Type Severity Reaction Status Date / Time latex [LATEX] Allergy Unknown Verified 02/24/24 08:54 metoclopramide AdvReac Unknown DYSTONIA Verified 02/24/24 08:54 [METOCLOPRAMIDE] Review of Systems Review of Systems Narrative: Review of systems is difficult to obtain due to sedation. Exam Vital Signs (past 8 hours): - 03/20/24 11:31 03/20/24 14:20 03/20/24 14:30 Temperature 98.8 F Pulse Rate 124 H 100 H 102 H Respiratory Rate 28 H 26 H 26 H Blood Pressure 175/112 H Pulse Oximetry 100 98 98 Oxygen Delivery Method Room Air Nasal Cannula Nasal Cannula Oxygen Flow Rate 4 4 03/20/24 14:35 03/20/24 14:40 03/20/24 14:45 Temperature Pulse Rate 103 H 101 H 102 H Respiratory Rate 26 H 26 H 25 H Blood Pressure Pulse Oximetry 98 98 99 Oxygen Delivery Method Nasal Cannula Nasal Cannula Nasal Cannula Oxygen Flow Rate 4 4 4 03/20/24 14:50 03/20/24 14:55 03/20/24 14:56 Temperature Pulse Rate 97 H 83 85 Respiratory Rate 23 26 H 27 H Blood Pressure 165/103 H Pulse Oximetry 100 100 100 Oxygen Delivery Method Nasal Cannula Nasal Cannula Nasal Cannula Oxygen Flow Rate 4 4 4 03/20/24 15:00 03/20/24 15:05 03/20/24 15:10 Temperature Pulse Rate 96 H 100 H 101 H Respiratory Rate 26 H 26 H 24 Blood Pressure Pulse Oximetry 99 98 98 Oxygen Delivery Method Room Air Nasal Cannula Oxygen Flow Rate 2 03/20/24 15:15 03/20/24 15:20 03/20/24 15:25 Temperature Pulse Rate 101 H 88 89 Respiratory Rate 25 H 25 H 27 H Blood Pressure Pulse Oximetry 98 99 98 Oxygen Delivery Method Oxygen Flow Rate 03/20/24 15:30 03/20/24 15:35 03/20/24 15:40 Temperature Pulse Rate 93 H 81 95 H Respiratory Rate 27 H 29 H Blood Pressure Pulse Oximetry 98 100 Oxygen Delivery Method Oxygen Flow Rate 03/20/24 15:43 03/20/24 15:43 03/20/24 15:45 Temperature Pulse Rate 79 81 Respiratory Rate Blood Pressure 217/110 H 217/116 H Pulse Oximetry 96 Oxygen Delivery Method Oxygen Flow Rate 03/20/24 15:45 03/20/24 15:50 03/20/24 15:50 Temperature Pulse Rate 81 86 Respiratory Rate 32 H 33 H Blood Pressure Pulse Oximetry 99 98 83 L Oxygen Delivery Method Room Air Oxygen Flow Rate 03/20/24 15:52 03/20/24 15:52 03/20/24 15:55 Temperature Pulse Rate 90 Respiratory Rate Blood Pressure 189/114 H Pulse Oximetry 99 97 Oxygen Delivery Method Room Air Oxygen Flow Rate 03/20/24 15:55 03/20/24 16:00 03/20/24 16:00 Temperature Pulse Rate 85 82 Respiratory Rate 25 H Blood Pressure 192/121 H Pulse Oximetry 99 98 Oxygen Delivery Method Nasal Cannula Oxygen Flow Rate 2 03/20/24 16:05 03/20/24 16:05 03/20/24 16:10 Temperature Pulse Rate 80 Respiratory Rate 25 H Blood Pressure 191/112 H 184/118 H Pulse Oximetry 100 Oxygen Delivery Method Nasal Cannula Oxygen Flow Rate 2 03/20/24 16:10 03/20/24 16:15 03/20/24 16:16 Temperature Pulse Rate 84 85 Respiratory Rate 26 H 27 H Blood Pressure 180/106 H Pulse Oximetry 99 99 Oxygen Delivery Method Oxygen Flow Rate 03/20/24 16:16 03/20/24 16:20 03/20/24 16:20 Temperature Pulse Rate 84 80 Respiratory Rate 28 H 27 H Blood Pressure 177/107 H Pulse Oximetry 99 99 Oxygen Delivery Method Nasal Cannula Nasal Cannula Oxygen Flow Rate 2 2 03/20/24 16:25 03/20/24 16:25 03/20/24 16:30 Temperature Pulse Rate 82 Respiratory Rate 28 H Blood Pressure 155/99 H 141/89 H Pulse Oximetry 99 Oxygen Delivery Method Oxygen Flow Rate 03/20/24 16:30 03/20/24 16:35 03/20/24 16:36 Temperature Pulse Rate 83 86 Respiratory Rate 21 Blood Pressure 143/93 H Pulse Oximetry 98 98 Oxygen Delivery Method Nasal Cannula Oxygen Flow Rate 2 03/20/24 16:36 03/20/24 16:40 03/20/24 16:40 Temperature Pulse Rate 81 79 Respiratory Rate 31 H 27 H Blood Pressure 162/96 H Pulse Oximetry 99 100 Oxygen Delivery Method Nasal Cannula Oxygen Flow Rate 2 03/20/24 16:45 03/20/24 16:45 03/20/24 16:50 Temperature Pulse Rate 79 Respiratory Rate 30 H Blood Pressure 164/103 H 185/97 H Pulse Oximetry 100 Oxygen Delivery Method Oxygen Flow Rate 03/20/24 16:50 03/20/24 16:55 03/20/24 16:55 Temperature Pulse Rate 79 82 Respiratory Rate 31 H 26 H Blood Pressure 137/89 Pulse Oximetry 100 100 Oxygen Delivery Method Nasal Cannula Oxygen Flow Rate 2 03/20/24 17:00 03/20/24 17:00 03/20/24 17:05 Temperature Pulse Rate 83 Respiratory Rate 28 H Blood Pressure 139/91 H 140/97 H Pulse Oximetry 100 Oxygen Delivery Method Nasal Cannula Oxygen Flow Rate 2 03/20/24 17:05 03/20/24 17:10 03/20/24 17:15 Temperature Pulse Rate 84 83 84 Respiratory Rate 26 H 25 H 30 H Blood Pressure Pulse Oximetry 100 100 100 Oxygen Delivery Method Oxygen Flow Rate 03/20/24 17:17 03/20/24 17:17 03/20/24 17:18 Temperature Pulse Rate 85 83 Respiratory Rate 28 H Blood Pressure 140/85 140/85 Pulse Oximetry 99 Oxygen Delivery Method Nasal Cannula Oxygen Flow Rate 2 03/20/24 17:20 Temperature Pulse Rate 83 Respiratory Rate 31 H Blood Pressure Pulse Oximetry 100 Oxygen Delivery Method Nasal Cannula Oxygen Flow Rate 1 Oxygen Delivery Method Nasal Cannula Oxygen Flow Rate 1 Narrative Exam Narrative: She is somnolent, in mild distress, and can answer occasional simple questions. Normocephalic skull, EOMI, anicteric sclera, symmetric pupils. Oropharynx unremarkable, no droop. Neck supple, midline trachea, no adenopathy. Lungs clear, normal rate and effort. Heart regular, no murmur gallop or rub. Abdomen is soft, non distended and mildly tender in the epigastric region. Extremities are free of edema. Skin is free of rash or lesions. Joints are not swollen or deformed. Judgment appears to be normal. Objective Imaging CT scan - abdomen: Radiologist's impression: 1. No acute findings to explain patient's symptoms. 2. Stable splenic artery aneurysm measuring approximately 2.2 centimeters. Recommend nonurgent vascular referral if not already obtained. Chest x-ray: Radiologist's impression: No acute cardiopulmonary abnormality is seen. Labs 03/20/24 12:04 03/20/24 12:04 Labs: Laboratory Results - last 24 hr 03/20/24 03/20/24 12:04 15:25 WBC 7.8 RBC 4.37 Hgb 14.2 Hct 41.0 MCV 93.8 MCH 32.5 MCHC 34.7 RDW 12.9 Plt Count 298 Neut % (Auto) 75.4 H Lymph % (Auto) 15.2 L Schley % (Auto) 8.7 Eos % (Auto) 0.0 L Baso % (Auto) 0.7 Neut # (Auto) 5800 Lymph # (Auto) 1200 Schley # (Auto) 700 Eos # (Auto) 0 Baso # (Auto) 100 Sodium 136 L Potassium 2.6 L* Chloride 88 L Carbon Dioxide 32 BUN 24 H Creatinine 1.02 Estimated GFR > 60 BUN/Creatinine Ratio 23.5 H Glucose 117 H Lactate 5.6 H* 1.3 Calcium 10.6 H Phosphorus 2.8 Magnesium 1.9 Total Bilirubin 1.4 H AST 33 ALT 27 Alkaline Phosphatase 89 Total Creatine Kinase 69 Troponin I < 0.012 NT-Pro-B Natriuret Pep Cancelled Total Protein 10.3 H Albumin 5.5 H Globulin 4.8 H Albumin/Globulin Ratio 1.1 Lipase 81 Ethyl Alcohol < 10 Assessment & Plan Assessment & Plan narrative: 1. Hypokalemia, present on admission and active. 2. Volume depletion, present on admission and active. 3. Sedation from benzodiazepines in the ED, active. 4. Cyclic vomiting syndrome, present on admission and active. 5. Lactic acidosis, present on admission and improving. 6. Recurrent abdominal pain, present on admission and active. Plan: -IV fluids overnight, serial potassium and replete as needed. -treat nausea symptomatically. -urine drug screen. -monitor blood pressure and treat as needed. As needed hydralazine. -CIWA protocol with IV Ativan. She has had relatively significant risk for alcohol withdrawal symptoms based on history. -we will discuss her situation with surgery tomorrow after reviewing her operative reports to see if they feel that this may relate to recurrent intussusception or other etiology. She is full resuscitation. Estimated date of discharge is March 21. She will be admitted as observation status. Narendra, cell phone is [phone]. Home #[phone]. is her proxy decision maker. Time Spent With Patient Time with patient: 30 to 49 minutes with 50% spent counseling/coordinating care Quality MIPS - Admit I confirm the patient?s Advance Care Plan is present, Code status is documented, Surrogate decision maker is in patient?s record [If Yes, STOP here]: Yes [facility] - Meds 'Current medications' to include all prescriptions, [id number] products, herbals, cannabis/cannabidiol products, and vitamin/mineral/dietary (nutritional) supplements. I have utilized all available resources to obtain, update, or review the patient?s current medications. [If Yes, STOP here]: Yes
[2024-03-20 18:04] LABS: NT-proBNP (BNP-Adult 18+) 815 pg/mL (<125)
[2024-03-20 18:41] LABS: BUN Creatinine Ratio 25.3 (6-22); Blood Urea Nitrogen 22 mg/dL (7-17); Calcium 8.9 mg/dL (8.4-10.2); Carbon Dioxide 29 mmol/L (22-32); Chloride 97 mmol/L (98-107); Estimated Glomerular Filt Rate > 60 mL/min (>60); Glucose 114 mg/dL (70-100); HEMOLYSIS < 15 (0-50); Sodium 135 mmol/L (137-145)
--- NOTE | 2024-03-20 19:00 | PC.NURSE ---
Pt's IV pump alarming. I went in to find pt's had been pressing buttons to silence it, I stopped when it asked me about flushing. was informed of medications through drip and he cannot be touching hospital IV equipment. Pt informed of risk with IV potassium and I reiterated to never adjust the IV pump.
[2024-03-20 20:13] LABS: UR Morphine/Opiate cutoff 300 Negative (Negative); Ur Creatinine Normal (Normal); Ur Specific Gravity Normal (Normal); Urine Amphetamines Negative (Negative); Urine Barbiturates Negative (Negative); Urine Benzodiazepines Positive (Negative); Urine Cocaine Positive (Negative); Urine MDMA Negative (Negative); Urine Methamphetamines Negative (Negative); Urine Phencyclidine Negative (Negative); Urine Tetrahydrocannabinol Positive (Negative); Urine Tricyclic Antidepressant Positive (Negative); Urine pH Normal (Normal)
[2024-03-20 20:14] LABS: Urine Methadone Negative (Negative); Urine Oxycodone Negative (Negative)
[2024-03-20] MEDS: DEXTROSE 5%-0.45% NS 1,000 ML 100 ML IV (21:33)
[2024-03-20] MEDS: HEPARIN 5,000 UNIT/ML VIAL 5000 UNIT SUBCUT (22:02)
[2024-03-20 22:34] LABS: Alanine Aminotransferase 12 IU/L (<35); Albumin 4.4 g/dL (3.5-5.0); Albumin Globulin Ratio 1.3 (1.0-2.8); Alkaline Phosphatase 73 U/L (38-126); Aspartate Aminotransferase 21 IU/L (14-36); BUN Creatinine Ratio 22.2 (6-22); Bilirubin Total 1.4 mg/dL (0.2-1.3); Blood Urea Nitrogen 18 mg/dL (7-17); Calcium 8.3 mg/dL (8.4-10.2); Carbon Dioxide 25 mmol/L (22-32); Chloride 104 mmol/L (98-107); Estimated Glomerular Filt Rate > 60 mL/min (>60); Globulin 3.3 g/dL (1.7-4.1); Glucose 125 mg/dL (70-100); HEMOLYSIS < 15 (0-50); Potassium 3.7 mmol/L (3.4-5.1); Sodium 135 mmol/L (137-145); Total Protein 7.7 g/dL (6.3-8.2)
[2024-03-21] VITALS: BP 128/81; PULSE 86; RESP 16; TEMP 36.3; O2SAT 99
[2024-03-21] MEDS: POTASSIUM CHLORIDE IN WATER 10 MEQ/100 ML PIGGYBACK 100 MEQ IV (00:19)
[2024-03-21] MEDS: LORazepam 2 MG/ML INJ IV (00:19)
[2024-03-21 00:39] VITALS: PULSE 86; RESP 16
--- NOTE | 2024-03-21 00:45 | PC.NURSE ---
Pt refused to remove clothing for skin assessment
--- NOTE | 2024-03-21 00:46 | PC.NURSE ---
Limited visual of assessment only, pt refused clothing.
[2024-03-21 04:00] VITALS: BP 135/89; PULSE 92; RESP 17; TEMP 36.1; O2SAT 98
--- NOTE | 2024-03-21 05:46 | PC.NURSE ---
Patient up out of bed without waiting for staff. Pulling on her IV, was asked to please wait for staff assistance when getting out of bed. Patient became up set and stated I pushed the damn light but no came. Patient did not have light on. Patient back in bed and became upset with this ERGONOMICS CONSULTANT when helping her with her blankets. Patient stated that the staff were doing care have assed. Patient was asked to please be more respecful with staff, patient stated Well if you knew how to do your job then it wouldn't be wrong. This ERGONOMICS CONSULTANT allowed the patient to place the blankets and offered assistance if need, patient stated No because you dont know how to do your job and you are going to mess it up. This ERGONOMICS CONSULTANT then asked if there was anything else the patient needed to which she replied A different and better nurse. This ERGONOMICS CONSULTANT asked the patient to not speak like that to staff and she replied well its the truth and if you dont like then leave This ERGONOMICS CONSULTANT made sure that the patient had her call light within reach and bed alarm set. Reported to RN
[2024-03-21] MEDS: DEXTROSE 5%-0.45% NS 1,000 ML 100 ML IV (05:56)
[2024-03-21 08:00] VITALS: BP 109/82; PULSE 93; RESP 28; TEMP 37; O2SAT 100
--- NOTE | 2024-03-21 08:23 | PM.PN.1 ---
Subjective Subjective Interval history: She feels better today with less abdominal pain. She was hungry and would like to try to eat. She describes acute abdominal pain yesterday but can not really say if it felt like last summer when she had a probable intussusception. Exam Vital Signs (past 8 hours): - 03/21/24 00:39 03/21/24 04:00 03/21/24 08:00 Temperature 97.0 F L 98.6 F Pulse Rate 86 92 H 93 H Respiratory Rate 16 17 28 H Blood Pressure 135/89 109/82 Pulse Oximetry 98 100 Oxygen Flow Rate 0 0 Oxygen Delivery Method Nasal Cannula Oxygen Flow Rate 0 Narrative Exam Narrative: NAD, anxious, somnolent but then will wake and answer question and then act somnolent again. Lungs are clear, normal rate and effort. Heart is regular, no murmur gallop or rub. Abdomen is soft, non distended. Extremities are free of edema. Objective Labs 03/20/24 12:04 03/20/24 22:00 Labs: Laboratory Results - last 24 hr 03/20/24 03/20/24 03/20/24 12:04 15:25 17:15 WBC 7.8 RBC 4.37 Hgb 14.2 Hct 41.0 MCV 93.8 MCH 32.5 MCHC 34.7 RDW 12.9 Plt Count 298 Neut % (Auto) 75.4 H Lymph % (Auto) 15.2 L [place] % (Auto) 8.7 Eos % (Auto) 0.0 L Baso % (Auto) 0.7 Neut # (Auto) 5800 Lymph # (Auto) 1200 [place] # (Auto) 700 Eos # (Auto) 0 Baso # (Auto) 100 Sodium 136 L 135 L Potassium 2.6 L* 3.0 L Chloride 88 L 97 L Carbon Dioxide 32 29 BUN 24 H 22 H Creatinine 1.02 0.87 Estimated GFR > 60 > 60 BUN/Creatinine Ratio 23.5 H 25.3 H Glucose 117 H 114 H Lactate 5.6 H* 1.3 Calcium 10.6 H 8.9 Phosphorus 2.8 Magnesium 1.9 Total Bilirubin 1.4 H AST 33 ALT 27 Alkaline Phosphatase 89 Total Creatine Kinase 69 Troponin I < 0.012 NT-Pro-B Natriuret Pep Cancelled 815 H Total Protein 10.3 H Albumin 5.5 H Globulin 4.8 H Albumin/Globulin Ratio 1.1 Lipase 81 U Opiates 300ng/mL cut Ur Oxycodone Screen Urine Methadone Screen Ur Barbiturates Screen U Tricyclic Antidepress Ur Phencyclidine Scrn Ur Amphetamines Screen U Methamphetamines Scrn Ur MDMA Scrn (Ecstasy) U Benzodiazepines Scrn Urine Cocaine Screen U Marijuana (THC) Screen Urine pH Urine Specific [place] Ethyl Alcohol < 10 Ur Creatinine 03/20/24 03/20/24 20:00 22:00 WBC RBC Hgb Hct MCV MCH MCHC RDW Plt Count Neut % (Auto) Lymph % (Auto) [place] % (Auto) Eos % (Auto) Baso % (Auto) Neut # (Auto) Lymph # (Auto) [place] # (Auto) Eos # (Auto) Baso # (Auto) Sodium 135 L Potassium 3.7 Chloride 104 Carbon Dioxide 25 BUN 18 H Creatinine 0.81 Estimated GFR > 60 BUN/Creatinine Ratio 22.2 H Glucose 125 H Lactate Calcium 8.3 L Phosphorus Magnesium Total Bilirubin 1.4 H AST 21 ALT 12 Alkaline Phosphatase 73 Total Creatine Kinase Troponin I NT-Pro-B Natriuret Pep Total Protein 7.7 Albumin 4.4 Globulin 3.3 Albumin/Globulin Ratio 1.3 Lipase U Opiates 300ng/mL cut Negative Ur Oxycodone Screen Negative Urine Methadone Screen Negative Ur Barbiturates Screen Negative U Tricyclic Antidepress Positive H Ur Phencyclidine Scrn Negative Ur Amphetamines Screen Negative U Methamphetamines Scrn Negative Ur MDMA Scrn (Ecstasy) Negative U Benzodiazepines Scrn Positive H Urine Cocaine Screen Positive H U Marijuana (THC) Screen Positive H Urine pH Normal Urine Specific [place] Normal Ethyl Alcohol Ur Creatinine Normal PFSH Medical History Family history of angioedema MRSA (methicillin resistant staph aureus) culture positive Abscess Marijuana use, continuous Chronic abdominal pain Pancreatitis Cyclic vomiting syndrome Surgical History Hx of appendectomy Hx of cholecystectomy Family History Father Hypertension Mother Diabetes mellitus Daughter Angio-edema Other Colon cancer Social History household members: spouse Smoking Status: Current every day smoker alcohol intake: current Assessment & Plan Assessment & Plan narrative: 1. Hypokalemia, present on admission and active. 2. Volume depletion, present on admission and active. 3. Sedation from benzodiazepines in the ED, active. 4. Cyclic vomiting syndrome, present on admission and active. 5. Lactic acidosis, present on admission and improving. 6. Recurrent abdominal pain, present on admission and active. She had a jejunal intussusception last summer. She underwent a laparotomy without any associated findings. Recommendations from surgery at that time were to avoid future surgery if possible. PLAN: -we will advance her diet and see how she does clinically. -we will stop IV fluids and monitor her intake. -we will monitor any nausea or pain. -if she does well this morning she may be able to discharge home later today. Quality VTE Deep Vein Thrombosis/Pulmonary Embolism Present on Admission: No
[2024-03-21] MEDS: FOLIC ACID 1 MG TABLET PO (09:25)
[2024-03-21] MEDS: HEPARIN 5,000 UNIT/ML VIAL 5000 UNIT SUBCUT ×2 (09:25→20:45)
[2024-03-21] MEDS: MULTIVITAMIN 1 TABLET 1 TAB PO (09:26)
[2024-03-21] MEDS: THIAMINE 100 MG TABLET PO (09:26)
[2024-03-21] MEDS: HYDROMORPHONE 0.5 MG INJ IV ×7 (10:10→23:21)
[2024-03-21] MEDS: ONDANSETRON 4 MG/2 ML INJ IV ×2 (12:07→20:44)
--- NOTE | 2024-03-21 13:08 | CM.DANOTE ---
DCP Assessment Note Pt is a 48yo female, resident of [place]. Pt lives in a house with pt's spouse, Narendra. Pt's Primary Care Provider is Joanna Storm MD and insurance is [employer] and Medicaid. Reviewed chart and team rounds for pt's medical status and initial discharge needs. Per RN and Student RN, pt has an extensive trauma history that has not been adressed. HVAC MAINTENANCE TECHNICIAN met w/patient and spouse, Narendra, at bedside; introduced self and role. Pt is found in bed, sitting upright while eating lunch. Pt is alert and oriented, seemingly agitated and frustrated with situation. Pt confirmed that at baseline, she ambulates independently and does not have a need for medical equipment at the home. HVAC MAINTENANCE TECHNICIAN inquired about any services in the community pt could be referred to such as mental health support. Pt stated, I can't get anywhere with state insurance. HVAC MAINTENANCE TECHNICIAN discussed referral to community mental health agencies such as [facility]. Pt declined and stated, They don't care about people there. I can't go there because I'm not an addict. You medical people don't have empathy anymore. 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 HVAC MAINTENANCE TECHNICIAN validated pt's emotions through empathetic and reflective listening. Pt stated, You're asking me for what I need without knowing what is wrong with me. I really don't want to have this conversation right now without that. Pt's interjected and requested this HVAC MAINTENANCE TECHNICIAN forward inquires to hospital staff about diagnostics for possible Irritable Bowel Syndrome or Chron's Disease. HVAC MAINTENANCE TECHNICIAN notified RN. HVAC MAINTENANCE TECHNICIAN discussed that any discharge plans will be followed by DCP team and to reach out when needed. Plan: Anticipating dc home with family today after medically cleared and pt's nausea managed after diet advanced. CM team will plan to follow clinical course closely for assessment of need and coordination of discharge plan. CHRISTOFER Colon Discharge Planning/Care Management Advanced directive, confirm from FAMILY Start: 03/20/24 19:54 Freq: Q24H Status: Active Protocol: Document 03/20/24 20:06 MW (Rec: 03/20/24 20:06 MW [id number]) Advance Directive, confirm on record Time 20:06 Person contacted pt Copy received No CM Discharge Assessment Start: 03/21/24 13:06 Freq: Status: Active Protocol: Document 03/21/24 13:06 MW(2) (Rec: 03/21/24 13:08 MW(2) [id number]) Discharge Planning Assessment Assigned Featherer ULISES Howell DPOA/Assigned Designee Name Narendra Issa, Spouse Contact Information [phone] Advance Directives? No Advance Directives on File No History Provided By Patient,Family Member,Medical Record Expected Length of Stay 1 Has Patient been admitted in last 30 No days? Prior Living Arrangements House Household Members spouse Type of transporation used prior to Drives own vehicle admit Independent with ADL's Yes Is patient alert and oriented? Yes Caregiver for Another No Patient/Family Preference Home with Home Health Comment Anticipate patient will return home w/family and encouragement to follow up outpatient. Discharge Plan Home Community Services Home Delivered Meals Transportation Arrangement Family to provide transport Referrals Initiated None needed Additional Comment Following closely in case DC needs or concerns arise Please Provide Date Initial DC 03/21/24 Assessment Was Performed Next Review Type Continued Stay Review
--- NOTE | 2024-03-21 15:03 | DIET.CONS ---
Dietary Consultation Note Admission Date: 03/20/2024 17:30 Assessment: 48 y F admitted for hypokalemia and dehydration. Nutrition consulted for cyclic vomiting, severe appetite loss, and psych distress. Per RN, pt this morning was distressed and not appropriate for visit. Attempted afternoon visit, pt sleeping soundly. Chart reviewed, pt with hx of abdominal pain, cyclic vomiting syndrome. Hx of marijuana use, reports 3-4 alcoholic beverages/day. Reported that she has been eating normally last several days. No weight loss noted in chart. Ht: 177.8 cm Wt: 80 kg BMI: 25.8 UBW: 79.379 kg 1 month ago per chart, 73.482 kg 4 months ago per chart Last BM: 03/21/24 (03/21/24 09:38) MNA: 10 Erik Score: 17 Diet: 03/21/24 Breakfast General (Regular) Diet Diet Modifications: Food Texture: Level 7 - Regular Liquid Consistency: Level 0 - Thin Nutrition Percent Meal Consumed 50% 03/21/24 09:38 Labs: RBC 4.37 X10^6/uL (4.0-5.2) 03/20/24 12:04 Hgb 14.2 g/dL (12.0-16.0) 03/20/24 12:04 Hct 41.0 % (36-46) 03/20/24 12:04 Creatinine 0.81 mg/dL (0.52-1.04) 03/20/24 22:00 Lactate 1.3 mmol/L (0.7-2.1) 03/20/24 15:25 NT-Pro-B Natriuret Pep 815 pg/mL (<125) H 03/20/24 17:15 Monitoring/Evaluations: Will continue to monitor PO intakes. Electronically Signed by: Honey Rodríguez 03/21/24 15:03 Clinical [address] [id number]
[2024-03-21] MEDS: HYDROCORTISONE 1% CREAM 28 GM 1 APPLIC TOP ×2 (16:24→21:44)
[2024-03-21] MEDS: LORazepam 2 MG/ML INJ 0.5 MG IV (18:18)
[2024-03-21] MEDS: diphenhydrAMINE 25 MG TABLET PO (18:42)
[2024-03-21 20:00] VITALS: BP 147/104; PULSE 74; RESP 16; TEMP 35.8; O2SAT 98
[2024-03-22] MEDS: diphenhydrAMINE 25 MG TABLET PO ×3 (00:40→14:12)
[2024-03-22] MEDS: HYDROMORPHONE 0.5 MG INJ IV ×4 (01:15→08:30)
[2024-03-22 02:32] LABS: Add Manual Diff / Slide Review NO; Basophils Absolute Auto 200 /uL (0-100); Basophils Percent Auto 3.9 % (0-2); Eosinophils Absolute Auto 200 /uL (0-450); Eosinophils Percent Auto 4.2 % (2-4); Hematocrit 36.5 % (36-46); Hemoglobin 12.4 g/dL (12.0-16.0); Lymphocytes Absolute Auto 1900 /uL (1100-4500); Lymphocytes Percent Auto 36.9 % (25-40); Mean Corpuscular HGB Conc 33.9 % (30-36); Mean Corpuscular Hemoglobin 32.3 PG (26-34); Mean Corpuscular Volume 95.2 fL (80-100); Monocytes Absolute Auto 400 /uL (0-900); Monocytes Percent Auto 7.7 % (3-14); Neutrophils Absolute Auto 2400 /uL (1500-7000); Neutrophils Percent Auto 47.3 % (50-75); Platelet Count 211 X10^3/uL (150-400); Red Blood Cell Count 3.83 X10^6/uL (4.0-5.2); Red Cell Distribution Width 13.1 % (11.6-14.8); White Blood Cell Count 5.1 X10^3/uL (4.5-11.0)
[2024-03-22 02:40] LABS: Alanine Aminotransferase 14 IU/L (<35); Albumin 4.4 g/dL (3.5-5.0); Albumin Globulin Ratio 1.3 (1.0-2.8); Alkaline Phosphatase 79 U/L (38-126); Aspartate Aminotransferase 27 IU/L (14-36); BUN Creatinine Ratio 14.3 (6-22); Bilirubin Total 0.7 mg/dL (0.2-1.3); Blood Urea Nitrogen 11 mg/dL (7-17); Calcium 9.2 mg/dL (8.4-10.2); Carbon Dioxide 25 mmol/L (22-32); Chloride 104 mmol/L (98-107); Estimated Glomerular Filt Rate > 60 mL/min (>60); Globulin 3.5 g/dL (1.7-4.1); Glucose 103 mg/dL (70-100); HEMOLYSIS 16 (0-50); Potassium 3.1 mmol/L (3.4-5.1); Sodium 138 mmol/L (137-145); Total Protein 7.9 g/dL (6.3-8.2)
[2024-03-22 04:00] VITALS: BP 154/105; PULSE 76; RESP 17; TEMP 36.3; O2SAT 100
[2024-03-22 08:00] VITALS: BP 148/100; PULSE 63; RESP 16; TEMP 36.4; O2SAT 98
[2024-03-22] MEDS: MULTIVITAMIN 1 TABLET 1 TAB PO (08:37)
[2024-03-22] MEDS: FOLIC ACID 1 MG TABLET PO (08:37)
[2024-03-22] MEDS: THIAMINE 100 MG TABLET PO (08:38)
[2024-03-22] MEDS: HEPARIN 5,000 UNIT/ML VIAL 5000 UNIT SUBCUT (08:38)
[2024-03-22] MEDS: POTASSIUM CHLORIDE 20 MEQ TAB 40 MEQ PO ×2 (09:15→14:12)
[2024-03-22] MEDS: HYDROCORTISONE 1% CREAM 28 GM 1 APPLIC TOP (09:35)
[2024-03-22] MEDS: OXYCODONE IR 10 MG TABLET PO ×2 (11:07→14:13)
[2024-03-22 11:33] VITALS: BP 159/103; PULSE 72; RESP 18; TEMP 37.2; O2SAT 100
--- NOTE | 2024-03-22 11:49 | CM.DPNOTE ---
DCP Note CDL BULK DRIVER reviewed EMR. Per hospitalist in morning rounds, anticipate dc home today. Per RN, pt doing overall well. CDL BULK DRIVER met with pt in room. Pt agreeable to DCP conversation. Pt asked for information on PCPs that take her insurance and are not connected to [facility]. No preference for location, agreeable to [place]. CDL BULK DRIVER printed off list from [place] [employer] website and delivered it to her along with new appt card. Pt appreciative. Pt interested in MH resources also not in [place]. CDL BULK DRIVER provided information for [facility]- pt appreciative. Asked this CDL BULK DRIVER to call about scheduling an appointment for her due to lack of consistent phone service at her house. CDL BULK DRIVER agreed and LVM with their intake. CDL BULK DRIVER encouraged pt to call herself to schedule an appointment. Pt calling to schedule from hospital phone. Pt denies other CM needs at this time. Plan: anticipate dc home today. Family to provide transport. No additional CM needs at this time. CM team will follow as needed. ULISES Ortega
[2024-03-22] MEDS: SCOPOLAMINE 1 PATCH TOP (12:35)
--- NOTE | 2024-03-22 14:18 | P.DS_ITS ---
History of Present Illness History of Present Illness Chief complaint: hyperventilating Narrative: The patient is a 48-year-old female with a history of cyclic vomiting. She presented to the emergency department today and was quite uncomfortable. She was also very restless. She was given a benzodiazepine at that time which ultimately has made her sedated for the rest of the afternoon. She was found to be profoundly volume depleted and was given 2 L of IV fluid with minimal effect on her urine output. She has a history of marijuana use, as well as vaping tobacco products and using daily wine. She also has a known history of chronic abdominal pain and pancreatitis as well as her cyclic vomiting syndrome. She was found to be hypokalemic and repletion was started in the emergency department. She has also been persistently hypertensive. A urine drug screen has not been obtain due to a lack of urine output. The notes that she was taken to the operating room about a year ago for possible intussusception or volvulus. There were no intraoperative findings. Since that time her pattern has changed and now she has periods of feeling well followed by periods of constipation followed by periods of diarrhea. She has been ill for about a day and a half. He notes that she stopped using marijuana for about 2 years and this had no real change in the overall pattern of her abdominal pain symptoms. She also does have a history of pancreatitis, the CT today was negative for clear evidence of pancreatitis. He also wonders about vascular causes of abdominal pain. He gave her a Phenergan suppository yesterday. He denies any rectal bleeding or hematemesis. She has been eating reasonably normally or last several days. He does note that she drinks about 3-4 12 oz beverages with about 12% alcohol in them a day as well. He also notes that she is chronically hypertensive. Discharge Providers Provider Date of admission: 03/20/24 17:30 Discharge Date: 03/22/24 Primary care physician: Joanna Storm MD Consults: 03/20/24 18:34 Consult to Dietitian, Adult Routine Comment: Reason For Exam: cyclic vomiting 03/20/24 19:53 Consult to Dietitian, Adult Routine Comment: Reason For Exam: pt reports severe appetite loss & psych distress Consult to Nursing Home Director Routine Comment: Discharge provider: Sukhdeep Mackay MD Summary Hospital Course Discharge Diagnosis: 1. Hypokalemia, present on admission and improved. 2. Volume depletion, present on admission and improved. 3. Nausea and vomiting, present on admission and active. 4. Lactic acidosis, present on admission and resolved. 5. Recurrent abdominal pain, present on admission and improved. She had a jejunal intussusception last summer. She underwent a laparotomy without any associated findings. Recommendations from surgery at that time were to avoid future surgery if possible. Hospital Course: She was admitted for recurrent abdominal pain with nausea and vomiting. Her initial CT scan was unremarkable and did not reveal any acute findings. She did have a intussusception of her jejunum in the late summer of 2022. This was identified by CT scan and she underwent a laparotomy at which time her operative findings were normal. Surgery did feel that this may be a recurrent issue but recommended a nonsurgical approach if feasible in the future. She was treated symptomatically with pain medications, nausea medications, and IV fluids. She did improve overall. She did have periodic episodes of frustration and increased discomfort. On the day of discharge she was picked up by her mother and was given medications for symptom control for the next several days. She will and resources to set up a primary care provider that would be covered by her [employer] payer. The importance of a primary care physician to guide her on continued symptom management as well as consideration of ongoing workup for her multiple medical problems was discussed on a repeated basis. Status at Discharge Cognitive/behavioral status at discharge: oriented Functional status at discharge: independent ambulation Overall status at discharge: patient is back to baseline Time Spent with Patient Time spent: Greater than 30 minutes Exam Vital Signs (past 8 hours): - 03/22/24 08:00 03/22/24 11:33 Temperature 97.5 F L 98.9 F Pulse Rate 63 72 Respiratory Rate 16 18 Blood Pressure 148/100 H 159/103 H Pulse Oximetry 98 100 Oxygen Delivery Method Room Air Oxygen Flow Rate 0 Narrative Exam Narrative: Anxious, no distress. Labile. Lungs clear Heart regular Abdomen soft No leg edema. Objective Labs 03/22/24 02:21 03/22/24 02:21 Labs: Laboratory Results - last 24 hr 03/22/24 02:21 WBC 5.1 RBC 3.83 L Hgb 12.4 Hct 36.5 MCV 95.2 MCH 32.3 MCHC 33.9 RDW 13.1 Plt Count 211 Neut % (Auto) 47.3 L D Lymph % (Auto) 36.9 D Gates % (Auto) 7.7 Eos % (Auto) 4.2 H Baso % (Auto) 3.9 H Neut # (Auto) 2400 Lymph # (Auto) 1900 Gates # (Auto) 400 Eos # (Auto) 200 Baso # (Auto) 200 H Sodium 138 Potassium 3.1 L Chloride 104 Carbon Dioxide 25 BUN 11 Creatinine 0.77 Estimated GFR > 60 BUN/Creatinine Ratio 14.3 Glucose 103 H Calcium 9.2 Total Bilirubin 0.7 AST 27 ALT 14 Alkaline Phosphatase 79 Total Protein 7.9 Albumin 4.4 Globulin 3.5 Albumin/Globulin Ratio 1.3 PFSH Medical History Family history of angioedema MRSA (methicillin resistant staph aureus) culture positive Abscess Marijuana use, continuous Chronic abdominal pain Pancreatitis Cyclic vomiting syndrome Surgical History Hx of appendectomy Hx of cholecystectomy Family History Father Hypertension Mother Diabetes mellitus Daughter Angio-edema Other Colon cancer Social History household members: spouse Smoking Status: Current every day smoker alcohol intake: current Discharge Assessment & Plan Assessment and Plan Assessment: 1. Hypokalemia, present on admission and active. 2. Volume depletion, present on admission and active. 3. Sedation from benzodiazepines in the ED, active. 4. Cyclic vomiting syndrome, present on admission and active. 5. Lactic acidosis, present on admission and improving. 6. Recurrent abdominal pain, present on admission and active. She had a jejunal intussusception last summer. She underwent a laparotomy without any associated findings. Recommendations from surgery at that time were to avoid future surgery if possible. Plan of Treatment: Stable for discharge. She is urged to follow up with a primary care provider. She should consider being referred GI for further recommendations. Discharge Plan Discharge Plan Patient Disposition: Home Provider Discharge Comment: Discharge with recommendation for new PCP (list of providers in the [facility] provided). Discharge orders & Medications Prescriptions: New scopolamine base [Transderm-Scop] 1 mg over 3 days Patch 3 Day 1 patch topical Q72H Qty: 5 0RF oxycodone 10 mg Tablet 10 mg PO Q4HR PRN (Reason: Pain, Moderate (4-6)) Qty: 25 0RF lorazepam [Ativan] 1 mg tablet 1 mg PO BID PRN (Reason: anxiety) Qty: 20 0RF Continued ondansetron 4 mg tablet,disintegrating 4 mg PO Q8H PRN (Reason: nausea/vomiting) Qty: 20 2RF Medication counseling provided by Pharmacist: No Follow up/Referrals: Joanna Storm MD [Primary Care Provider] - Discharge Health Status Multidrug resistant organism: No MDRO Diet/Activity/Treatments Diet: Diet as Tolerated Activity: As tolerated. Skin/Wound/Dressing Care Report to your healthcare provider any signs of infection, such as:: chills, fever and increased pain Visit Report/Discharge Packet Instructions: DI for Hypokalemia, DI for Acute Abdominal Pain, DI for Prescription Opioid Use, Lorazepam, Oxycodone Stand Alone Forms: Patient Portal/API, Stroke Signs & Symptoms Discharge Data Primary Care Provider: Joanna Storm Attending Provider: Sukhdeep Mackay Admit Date/Time: 03/20/24 17:30 Quality VTE Deep Vein Thrombosis/Pulmonary Embolism Present on Admission: No
--- NOTE | 2024-03-22 14:36 | PC.NURSE ---
Pt is dressed and ready for discharge home with her Mother. IV has been removed. Went over d/c instructions with Pt and Mother-discussed d/c meds, time of last dose, reviewed stroke education, encouraged Pt to drink water to prevent constipation or dehydration. Discussed stress, anxiety and depression treatment. Discussed following up with [facility] for treatment of her medical problems. Pt states she will call them today. Pt denied further questions and was taken out via w/c by [employer] to POV with Mother and all belongings.
== END 2024-03-22 14:39 | disposition home or self-care (01) ==
LOC: ED 16:40 → AC 17:30
PROVIDERS: Internal Medicine; Student in an Organized Health Care Education/Training Program; Admitting Provider Hospitalist; Emergency Provider Emergency Medicine; Family Provider Internal Medicine; PCP Internal Medicine; Referring Provider Emergency Medicine; Visit Provider Hospitalist
DX: R07.9 Chest pain, unspecified (principal); E86.0 Dehydration; E87.6 Hypokalemia; R11.15 Cyclical vomiting syndrome unrelated to migraine; R10.9 Unspecified abdominal pain; I10 Essential (primary) hypertension
CPT/HCPCS: 36415; 71045; 74177; 80048; 80053; 80305; 80320; 82550; 83605; 83690; 83735; 83880; 84100; 84484; 85025; 93005; 96361; 96365; 96366; 96372; 96375; 96376; 99285; 99291; G0378; J1170; J1644; J1885; J2060; J2405

== ENCOUNTER 2024-07-26 21:53 | Emergency (ER) | payer BC, OTHER, SELFPAY ==
[2023-07-12 09:46] VITALS: PULSE 63; RESP 16; O2SAT 100
[2024-03-20 19:41] VITALS: BMI 25.8
[2024-07-26] VITALS (9 sets, daily range): BP systolic 136–193; BP diastolic 101–110; PULSE 76–112; RESP 24; TEMP 36.6; O2SAT 91–100; BMI 24.3
--- NOTE | 2024-07-26 22:02 | DI.RAD.S_ITS ---
PROCEDURE: XR CHEST 1V INDICATIONS: Chest pain TECHNIQUE: One view of the chest was acquired. COMPARISON: [facility], CR, XR CHEST 1V, 03/20/2024, 13:19. [facility], CR, XR CHEST 1V, 07/13/2023, 12:21. FINDINGS: Surgical changes and devices: None. Lungs and pleura: Lungs are clear. No pleural effusions or pneumothorax. Mediastinum: Mediastinal contours appear normal. Heart size is normal. Bones and chest wall: No suspicious bony lesions. Overlying soft tissues appear unremarkable. IMPRESSION: No acute cardiopulmonary abnormality is seen. Dictated by: Chuck Mcgraw M.D. on 07/26/2024 at 23:40 Approved by: Chuck Mcgraw M.D. on 07/26/2024 at 23:40
--- NOTE | 2024-07-26 22:02 | DI.RAD.S_ITS ---
PROCEDURE: XR ABDOMEN 1V INDICATIONS: Vomiting TECHNIQUE: One view of the abdomen acquired. COMPARISON: [facility], CT, CT ABDOMEN PELVIS W CON, 03/20/2024, 13:31. [facility], CR, XR ABDOMEN MIN 2V, 08/22/2023, 2:21. [facility], CR, XR ABDOMEN 1V, 01/20/2023, 17:41. FINDINGS: Surgical changes and devices: Right upper quadrant presumed cholecystectomy clips. Pelvic IUD.. Bowel: Bowel gas pattern is normal. Soft tissues: No new suspicious abdominal calcifications. Visualized solid organ contours appear normal in size. Peripherally calcified left upper quadrant structure again noted, best seen by CT scanning 03/20/24. Bones: No suspicious bony lesions. IMPRESSION: No acute abnormality. No sign of intestinal obstruction or perforation. Dictated by: Chuck Mcgraw M.D. on 07/26/2024 at 23:39 Approved by: Chuck Mcgraw M.D. on 07/26/2024 at 23:40
--- NOTE | 2024-07-26 22:12 | EKG_ITS ---
[address] [address] Test Date: 2024-07-26 Pat Name: Rhonda Yadav Department: Room: Gender: Female Grommet Man: vaughn : 1975 Requested By: Order Number: [id number] Reading MD: Chele Alfredo Measurements Intervals Weed Rate: 93 P: 75 CA: 140 QRS: 52 QRSD: 88 T: 79 QT: 394 QTc: 489 Interpretive Statements Normal sinus rhythm with sinus arrhythmia Left ventricular hypertrophy with repolarization abnormality ( Sokolow-Grigsby ) Prolonged QT Electronically Signed On 07-28-2024 20:13:31 PDT by Chele Alfredo
--- NOTE | 2024-07-26 22:16 | ED.GENADULT ---
HPI - General Adult <Brady Huerta DO - Last Filed: 07/27/24 17:57> General Chief complaint: Abdominal Pain Stated complaint: cyclical vomiting, chest pain Time Seen by Provider: 07/26/24 21:58 Source: patient and family Mode of arrival: Ambulatory History of Present Illness HPI narrative: Patient is a 48-year-old female. Has a history of cyclic vomiting syndrome. I have evaluated her here in the emergency department in the past. Her cyclic vomiting is most likely related to cannabis use. She comes in the emergency department with abdominal pain and vomiting very consistent with her prior history of cyclic vomiting. Symptoms started earlier today. Home treatments have not been helpful. She does endorse chest pain and shortness of breath. Chest discomfort is in the center of her chest because of the vomiting. Shortness of breath this because she can not catch her breath because of the discomfort. Very dramatic with vomiting and retching upon arrival and during interview. Related Data Previous Rx's Medication Instructions Recorded lorazepam 1 mg tablet (Ativan) 1 mg PO BID PRN anxiety #20 tabs 03/22/24 ondansetron 4 mg disintegrating 4 mg PO Q8H PRN nausea/vomiting 03/22/24 tablet #20 tabs oxycodone 10 mg tablet 10 mg PO Q4HR PRN Pain, Moderate 03/22/24 (4-6) #25 tabs scopolamine base 1 mg over 3 days 1 patch topical Q72H #5 ea 03/22/24 transdermal patch (Transderm-Scop) promethazine 25 mg rectal 25 mg MD Q4-6H PRN nausea and 07/27/24 suppository vomiting #12 ea Allergies Allergy/AdvReac Type Severity Reaction Status Date / Time latex [LATEX] Allergy Unknown Verified 02/24/24 08:54 metoclopramide AdvReac Unknown DYSTONIA Verified 02/24/24 08:54 [METOCLOPRAMIDE] Review of Systems <Brady Huerta DO - Last Filed: 07/27/24 17:57> Review of Systems ROS Unobtainable: All systems reviewed & are unremarkable except as noted in HPI and below Patient History <Brady Huerta DO - Last Filed: 07/27/24 17:57> Medical History Family history of angioedema MRSA (methicillin resistant staph aureus) culture positive Abscess Marijuana use, continuous Chronic abdominal pain Pancreatitis Cyclic vomiting syndrome Surgical History Hx of appendectomy Hx of cholecystectomy Family History Father Hypertension Mother Diabetes mellitus Daughter Angio-edema Other Colon cancer Social History household members: spouse Smoking Status: Current every day smoker alcohol intake: current Smoking Status: Current every day smoker tobacco type: vaping alcohol intake frequency: 3 or more drinks per day Alcohol type: wine Substance Use Type: marijuana and crack/cocaine Exam <DO Omaira Leong Last Filed: 07/27/24 17:57> Initial Vital Signs Initial Vital Signs: Vital Signs Pulse Rate 98 H 07/26/24 22:00 Pulse Oximetry 99 07/26/24 22:00 Const General: cooperative and acute distress Resp Effort & Inspection: normal respiratory effort Auscultation: clear to auscultation bilaterally Cardio Rate: regular rate Rhythm: regular rhythm GI Inspection: normal to inspection and non-distended Palpation: tender (Epigastric region) Skin General: no rashes or lesions noted Psych Other: Very anxious appearing <Savannah Reich DO - Last Filed: 07/27/24 12:12> Initial Vital Signs Initial Vital Signs: Vital Signs Pulse Rate 98 H 07/26/24 22:00 Pulse Oximetry 99 07/26/24 22:00 Course <DO Omaira Leong Last Filed: 07/27/24 17:57> Orders Ordered: Discontinued Medications Haloperidol (Haloperidol 5 Mg/Ml Vial) 5 mg IV NOW ONE Stop: 07/27/24 01:26 Last Admin: 07/27/24 01:38 Dose: 5 mg Documented By: GRICELDA Sodium Chloride (Normal Saline 0.9%) 1,000 mls @ 1,000 mls/hr IV BOLUS ONE Stop: 07/26/24 23:00 Last Infusion: 07/27/24 00:00 Dose: Infused Documented By: Admin: 07/26/24 23:05 Dose: 1,000 mls/hr Documented By: SB POTASSIUM CHLORIDE IN WATER (Potassium Cl 10 Meq/100 Ml Megan) 10 meq in 100 mls @ 100 mls/hr IV Q1H LINDA Stop: 07/27/24 03:44 Last Infusion: 07/27/24 04:08 Dose: Infused Documented By: Admin: 07/27/24 03:07 Dose: 100 mls/hr Documented By: Infusion: 07/27/24 03:07 Dose: Infused Documented By: Admin: 07/27/24 02:07 Dose: 100 mls/hr Documented By: Infusion: 07/27/24 02:05 Dose: Infused Documented By: Admin: 07/27/24 01:05 Dose: 100 mls/hr Documented By: Infusion: 07/27/24 01:01 Dose: Infused Documented By: Admin: 07/27/24 00:01 Dose: 100 mls/hr Documented By: SABA Acetaminophen (Ofirmev) 1,000 mg in 100 mls @ 400 mls/hr IV NOW ONE Stop: 07/27/24 08:17 Last Infusion: 07/27/24 09:17 Dose: Infused Documented By: Admin: 07/27/24 08:46 Dose: 400 mls/hr Documented By: ELIEZER Ketorolac Tromethamine (Ketorolac 30 Mg/Ml Vial) 15 mg IV NOW ONE Stop: 07/27/24 08:04 Last Admin: 07/27/24 08:46 Dose: 15 mg Documented By: ELIEZER Lorazepam (Lorazepam 2 Mg/Ml Inj) 1 mg IV NOW ONE Stop: 07/26/24 22:07 Last Admin: 07/26/24 22:52 Dose: Not Given Documented By: Lorazepam (Lorazepam 2 Mg/Ml Inj) 1 mg IV NOW ONE Stop: 07/26/24 23:34 Last Admin: 07/26/24 23:38 Dose: 1 mg Documented By: SABA Ondansetron HCl (Ondansetron 4 Mg Odt) 4 mg SL NOW ONE Stop: 07/26/24 22:17 Last Admin: 07/26/24 22:23 Dose: 4 mg Documented By: GRICELDA Pantoprazole Sodium (Pantoprazole 40 Mg Vial) 20 mg IV NOW ONE Stop: 07/27/24 01:26 Last Admin: 07/27/24 01:37 Dose: 20 mg Documented By: GRICELDA Vital Signs Vital signs: Vital Signs - 8 hr 07/27/24 10:00 07/27/24 10:00 Pulse Rate 71 Blood Pressure 161/104 H Pulse Oximetry 98 <Savannah Reich, DO - Last Filed: 07/27/24 12:12> Orders Ordered: Discontinued Medications Haloperidol (Haloperidol 5 Mg/Ml Vial) 5 mg IV NOW ONE Stop: 07/27/24 01:26 Last Admin: 07/27/24 01:38 Dose: 5 mg Documented By: GC Sodium Chloride (Normal Saline 0.9%) 1,000 mls @ 1,000 mls/hr IV BOLUS ONE Stop: 07/26/24 23:00 Last Infusion: 07/27/24 00:00 Dose: Infused Documented By: Admin: 07/26/24 23:05 Dose: 1,000 mls/hr Documented By: SB POTASSIUM CHLORIDE IN WATER (Potassium Cl 10 Meq/100 Ml Megan) 10 meq in 100 mls @ 100 mls/hr IV Q1H LINDA Stop: 07/27/24 03:44 Last Infusion: 07/27/24 04:08 Dose: Infused Documented By: Admin: 07/27/24 03:07 Dose: 100 mls/hr Documented By: Infusion: 07/27/24 03:07 Dose: Infused Documented By: Admin: 07/27/24 02:07 Dose: 100 mls/hr Documented By: Infusion: 07/27/24 02:05 Dose: Infused Documented By: Admin: 07/27/24 01:05 Dose: 100 mls/hr Documented By: Infusion: 07/27/24 01:01 Dose: Infused Documented By: Admin: 07/27/24 00:01 Dose: 100 mls/hr Documented By: SABA Acetaminophen (Ofirmev) 1,000 mg in 100 mls @ 400 mls/hr IV NOW ONE Stop: 07/27/24 08:17 Last Infusion: 07/27/24 09:17 Dose: Infused Documented By: Admin: 07/27/24 08:46 Dose: 400 mls/hr Documented By: ELIEZER Ketorolac Tromethamine (Ketorolac 30 Mg/Ml Vial) 15 mg IV NOW ONE Stop: 07/27/24 08:04 Last Admin: 07/27/24 08:46 Dose: 15 mg Documented By: ELIEZER Lorazepam (Lorazepam 2 Mg/Ml Inj) 1 mg IV NOW ONE Stop: 07/26/24 22:07 Last Admin: 07/26/24 22:52 Dose: Not Given Documented By: Lorazepam (Lorazepam 2 Mg/Ml Inj) 1 mg IV NOW ONE Stop: 07/26/24 23:34 Last Admin: 07/26/24 23:38 Dose: 1 mg Documented By: SB Ondansetron HCl (Ondansetron 4 Mg Odt) 4 mg SL NOW ONE Stop: 07/26/24 22:17 Last Admin: 07/26/24 22:23 Dose: 4 mg Documented By: GC Pantoprazole Sodium (Pantoprazole 40 Mg Vial) 20 mg IV NOW ONE Stop: 07/27/24 01:26 Last Admin: 07/27/24 01:37 Dose: 20 mg Documented By: GRICELDA Vital Signs Vital signs: Vital Signs - 8 hr 07/27/24 10:00 07/27/24 10:00 Pulse Rate 71 Blood Pressure 161/104 H Pulse Oximetry 98 Medical Decision Making <Brady Huerta DO - Last Filed: 07/27/24 17:57> Lab Data 07/26/24 22:56 07/26/24 22:56 Labs: Lab Results 07/26/24 Range/Units 22:56 WBC 6.3 (4.5-11.0) X10^3/uL RBC 4.34 (4.0-5.2) X10^6/uL Hgb 14.0 (12.0-16.0) g/dL Hct 41.2 (36-46) % MCV 95.1 (80-100) fL MCH 32.3 (26-34) PG MCHC 34.0 (30-36) % RDW 13.2 (11.6-14.8) % Plt Count 283 (150-400) X10^3/uL Neut % (Auto) 81.4 H (50-75) % Lymph % (Auto) 12.0 L (25-40) % Story % (Auto) 5.6 (3-14) % Eos % (Auto) 0.3 L (2-4) % Baso % (Auto) 0.7 (0-2) % Neut # (Auto) 5100 (2417-9978) /uL Lymph # (Auto) 800 L (5922-0640) /uL Story # (Auto) 400 (0-900) /uL Eos # (Auto) 0 (0-450) /uL Baso # (Auto) 0 (0-100) /uL Sodium 137 (137-145) mmol/L Potassium 2.7 L* (3.4-5.1) mmol/L Chloride 93 L (98-107) mmol/L Carbon Dioxide 30 (22-32) mmol/L BUN 14 (7-17) mg/dL Creatinine 0.78 (0.52-1.04) mg/dL Estimated GFR > 60 (>60) mL/min BUN/Creatinine Ratio 17.9 (6-22) Glucose 136 H (70-100) mg/dL Calcium 10.7 H (8.4-10.2) mg/dL Total Bilirubin 1.0 (0.2-1.3) mg/dL AST 36 (14-36) IU/L ALT 26 (<35) IU/L Alkaline Phosphatase 108 (38-126) U/L Total Protein 9.6 H (6.3-8.2) g/dL Albumin 4.9 (3.5-5.0) g/dL Globulin 4.7 H (1.7-4.1) g/dL Albumin/Globulin Ratio 1.0 (1.0-2.8) Lipase 73 (23-300) U/L Imaging Data Abdominal x-ray: Radiologist's Impression: PROCEDURE: XR ABDOMEN 1V INDICATIONS: Vomiting TECHNIQUE: One view of the abdomen acquired. COMPARISON: [facility], CT, CT ABDOMEN PELVIS W CON, 03/20/2024, 13:31. [facility], CR, XR ABDOMEN MIN 2V, 08/22/2023, 2:21. [facility], CR, XR ABDOMEN 1V, 01/20/2023, 17:41. FINDINGS: Surgical changes and devices: Right upper quadrant presumed cholecystectomy clips. Pelvic IUD.. Bowel: Bowel gas pattern is normal. Soft tissues: No new suspicious abdominal calcifications. Visualized solid organ contours appear normal in size. Peripherally calcified left upper quadrant structure again noted, best seen by CT scanning 03/20/24. Bones: No suspicious bony lesions. IMPRESSION: No acute abnormality. No sign of intestinal obstruction or perforation. Chest x-ray: Radiologist's Impression: PROCEDURE: XR CHEST 1V INDICATIONS: Chest pain TECHNIQUE: One view of the chest was acquired. COMPARISON: [facility], CR, XR CHEST 1V, 03/20/2024, 13:19. [facility], CR, XR CHEST 1V, 07/13/2023, 12:21. FINDINGS: Surgical changes and devices: None. Lungs and pleura: Lungs are clear. No pleural effusions or pneumothorax. Mediastinum: Mediastinal contours appear normal. Heart size is normal. Bones and chest wall: No suspicious bony lesions. Overlying soft tissues appear unremarkable. IMPRESSION: No acute cardiopulmonary abnormality is seen. ECG Data Attestation: I personally reviewed and interpreted this ECG as follows: Interpretation: Sinus rhythm Ventricular rate 93 LVH QTC 489 Artifact noted secondary to motion. MDM Narrative Medical decision making narrative: After medications here in the emergency department she became very less anxious. Was able to sleep. Her vomiting was improved. It does appear that the Haldol seemed to work best however she did become very somnolent and requiring oxygen by nasal cannula. Review of her medical record shows that this has been a very common scenario for her. Patient was hypokalemic. This was replaced IV here in the ER. Imaging studies to include chest x-ray and abdominal x-ray are unremarkable. I do feel that we can hold on more advanced imaging such as a CT scan given her presentation today. I anticipate patient being able to be discharged home. <Savannah Reich, - Last Filed: 07/27/24 12:12> Lab Data Labs: Lab Results 07/26/24 Range/Units 22:56 WBC 6.3 (4.5-11.0) X10^3/uL RBC 4.34 (4.0-5.2) X10^6/uL Hgb 14.0 (12.0-16.0) g/dL Hct 41.2 (36-46) % MCV 95.1 (80-100) fL MCH 32.3 (26-34) PG MCHC 34.0 (30-36) % RDW 13.2 (11.6-14.8) % Plt Count 283 (150-400) X10^3/uL Neut % (Auto) 81.4 H (50-75) % Lymph % (Auto) 12.0 L (25-40) % Story % (Auto) 5.6 (3-14) % Eos % (Auto) 0.3 L (2-4) % Baso % (Auto) 0.7 (0-2) % Neut # (Auto) 5100 (1227-9815) /uL Lymph # (Auto) 800 L (0152-6006) /uL Story # (Auto) 400 (0-900) /uL Eos # (Auto) 0 (0-450) /uL Baso # (Auto) 0 (0-100) /uL Sodium 137 (137-145) mmol/L Potassium 2.7 L* (3.4-5.1) mmol/L Chloride 93 L (98-107) mmol/L Carbon Dioxide 30 (22-32) mmol/L BUN 14 (7-17) mg/dL Creatinine 0.78 (0.52-1.04) mg/dL Estimated GFR > 60 (>60) mL/min BUN/Creatinine Ratio 17.9 (6-22) Glucose 136 H (70-100) mg/dL Calcium 10.7 H (8.4-10.2) mg/dL Total Bilirubin 1.0 (0.2-1.3) mg/dL AST 36 (14-36) IU/L ALT 26 (<35) IU/L Alkaline Phosphatase 108 (38-126) U/L Total Protein 9.6 H (6.3-8.2) g/dL Albumin 4.9 (3.5-5.0) g/dL Globulin 4.7 H (1.7-4.1) g/dL Albumin/Globulin Ratio 1.0 (1.0-2.8) Lipase 73 (23-300) U/L MDM Narrative Medical decision making narrative: After medications here in the emergency department she became very less anxious. Was able to sleep. Her vomiting was improved. It does appear that the Haldol seemed to work best however she did become very somnolent and requiring oxygen by nasal cannula. Review of her medical record shows that this has been a very common scenario for her. Patient was hypokalemic. This was replaced IV here in the ER. Imaging studies to include chest x-ray and abdominal x-ray are unremarkable. I do feel that we can hold on more advanced imaging such as a CT scan given her presentation today. I anticipate patient being able to be discharged home. Dr. Reich-patient signed out to me by Dr. Huerta I have seen evaluated patient myself. She has been sleeping all night. No further vomiting but still complains of abdominal pain this. 48-year-old female history of cyclic vomiting previously admitted March 20 through the . She reports that usually her abdomen does not hurt. She previously had a CT February 2024 which did not show any cause but did show a splenic artery aneurysm 2.2 cm. She is tender left upper abdomen. Vitals have been stable. Potassium has been replaced. Repeat CT this morning does show a stable left aneurysm. I did discuss with these findings in the she does meet follow-up vascular surgery however not emergent. She remains quite sleepy she did get Tylenol and Toradol for pain. He reports that Toradol makes her sleep. She has really had no further vomiting since I have taken over care. He requests that she have refill of her Phenergan suppository which seems reasonable. At this time no need for admission. Discharge Plan Departure Patient Disposition: Home Clinical Impression: Cyclic vomiting syndrome, Hypokalemia, Splenic artery aneurysm Instructions: Nausea and Vomiting-Adult Activity Restrictions/Additional Instructions: I do recommend a bland diet for the next couple days. Contact your primary care doctor for follow-up. Return to the emergency department for new or worsening symptoms. You also have a very stable splenic artery aneurysm. It is recommended that you have a nonemergent evaluation by a vascular surgeon. Please talk to your primary care provider about a referral. Phenergan suppository has been your pharmacy Prescriptions: New promethazine 25 mg suppository 25 mg MD Q4-6H PRN (Reason: nausea and vomiting) Qty: 12 0RF No Action scopolamine base [Transderm-Scop] 1 mg over 3 days Patch 3 Day 1 patch topical Q72H Qty: 5 0RF oxycodone 10 mg Tablet 10 mg PO Q4HR PRN (Reason: Pain, Moderate (4-6)) Qty: 25 0RF lorazepam [Ativan] 1 mg tablet 1 mg PO BID PRN (Reason: anxiety) Qty: 20 0RF ondansetron 4 mg tablet,disintegrating 4 mg PO Q8H PRN (Reason: nausea/vomiting) Qty: 20 2RF Referrals: Marbin Regalado MD [Primary Care Provider] - Stand Alone Forms: Patient Portal/API
[2024-07-26] MEDS: ONDANSETRON 4 MG ODT SL (22:23)
--- NOTE | 2024-07-26 22:53 | PC.NURSE ---
Pt somnolent and O2 sats dropping to 87-89% on RA. Administered 2L per NC. Ativan held for sedation. Dr Huerta notified. MD parekh to hold ativan.
[2024-07-26] MEDS: SODIUM CHLORIDE 0.9% 1,000 ML 1000 ML IV (23:05)
[2024-07-26 23:28] LABS: Alanine Aminotransferase 26 IU/L (<35); Albumin 4.9 g/dL (3.5-5.0); Alkaline Phosphatase 108 U/L (38-126); Aspartate Aminotransferase 36 IU/L (14-36); BUN Creatinine Ratio 17.9 (6-22); Blood Urea Nitrogen 14 mg/dL (7-17); Calcium 10.7 mg/dL (8.4-10.2); Carbon Dioxide 30 mmol/L (22-32); Chloride 93 mmol/L (98-107); Estimated Glomerular Filt Rate > 60 mL/min (>60); Globulin 4.7 g/dL (1.7-4.1); Glucose 136 mg/dL (70-100); HEMOLYSIS 17 (0-50); Lipase 73 U/L (23-300); Sodium 137 mmol/L (137-145); Total Protein 9.6 g/dL (6.3-8.2)
--- NOTE | 2024-07-26 23:34 | PC.NURSE ---
pt took off O2 cannula and is refusing to put it back on. YULIET Alfonso notified
--- NOTE | 2024-07-26 23:35 | PC.NURSE ---
Confirmed with provider Bradley GASTON to give 1mg Ativan IV as per JAN. Provider stated, yes.
[2024-07-26 23:37] LABS: Add Manual Diff / Slide Review NO; Basophils Absolute Auto 0 /uL (0-100); Basophils Percent Auto 0.7 % (0-2); Eosinophils Absolute Auto 0 /uL (0-450); Eosinophils Percent Auto 0.3 % (2-4); Hematocrit 41.2 % (36-46); Lymphocytes Absolute Auto 800 /uL (1100-4500); Mean Corpuscular Hemoglobin 32.3 PG (26-34); Mean Corpuscular Volume 95.1 fL (80-100); Monocytes Absolute Auto 400 /uL (0-900); Monocytes Percent Auto 5.6 % (3-14); Neutrophils Absolute Auto 5100 /uL (1500-7000); Neutrophils Percent Auto 81.4 % (50-75); Platelet Count 283 X10^3/uL (150-400); Red Blood Cell Count 4.34 X10^6/uL (4.0-5.2); Red Cell Distribution Width 13.2 % (11.6-14.8); White Blood Cell Count 6.3 X10^3/uL (4.5-11.0)
[2024-07-26] MEDS: LORazepam 2 MG/ML INJ 1 MG IV (23:38)
[2024-07-26 23:39] LABS: Potassium 2.7 mmol/L (3.4-5.1)
--- NOTE | 2024-07-26 23:53 | PC.NURSE ---
YULIET Christine checks on patient. Oxygen saturation at 66% on RA. Pt arouses to voice. Placed on 6L via NC. Oxygen saturation immediately climbs to 96% on 6L via NC. Provider Bradley made aware.
[2024-07-27] VITALS (27 sets, daily range): BP systolic 125–207; BP diastolic 73–134; PULSE 71–108; O2SAT 92–100
[2024-07-27] MEDS: POTASSIUM CHLORIDE IN WATER 10 MEQ/100 ML PIGGYBACK 100 MEQ IV ×4 (00:01→03:07)
[2024-07-27] MEDS: PANTOPRAZOLE 40 MG VIAL 20 MG IV (01:37)
[2024-07-27] MEDS: HALOPERIDOL 5 MG/ML VIAL IV (01:38)
--- NOTE | 2024-07-27 08:03 | DI.CT.S_ITS ---
PROCEDURE: CT ABDOMEN PELVIS W CON INDICATIONS: persistant abdominal pain TECHNIQUE: After the administration of intravenous contrast, axial sections acquired from the lung bases to the pubic symphysis. Coronal and sagittal reformats were performed. For radiation dose reduction, the following was used: automated exposure control, adjustment of mA and/or kV according to patient size. COMPARISON: [facility], CT, CT ABDOMEN PELVIS W CON, 03/20/2024, 13:31. FINDINGS: Image quality: Diagnostic. Lower Chest: No significant findings. ABDOMEN: Liver: No solid mass. Gallbladder: Gallbladder is surgically absent. Biliary ducts: No biliary dilation. Pancreas: No ductal dilation. Spleen: Size is within normal limits. Stable 2.2 x 2.4 centimeter splenic artery aneurysm. Adrenal Glands: No adrenal nodules. Kidneys and Ureters: No hydronephrosis. No solid mass. No complex renal cystic lesion which requires follow up. Stomach and Bowel: Small hiatal hernia. Normal colonic caliber, without significant wall thickening. No evidence of appendicitis. Colonic diverticula without evidence of diverticulitis. Peritoneum: No abnormal intraperitoneal fluid. No free air. Ventral Wall: No significant ventral hernia. Abdominal Nodes: No retroperitoneal or mesenteric adenopathy by size criteria. Vessels: Aorta and inferior vena cava are normal in size. PELVIS: Pelvic Organs: IUD centrally positioned within the uterus. Bladder: No bladder wall thickening, accounting for underdistention. Pelvic Nodes: No enlarged lymph nodes. Miscellaneous: No inguinal hernias are seen. Bones: No aggressive osseous abnormality. Spine degenerative disc disease and facet arthropathy. IMPRESSION: No acute disease process. 2.2 x 2.4 centimeter splenic artery aneurysm. Recommend nonemergent vascular surgery or safety intern consultation. Dictated by: Lexie Morris MD, PhD on 07/27/2024 at 9:06 Approved by: Lexie Morris MD, PhD on 07/27/2024 at 9:11
[2024-07-27] MEDS: KETOROLAC 30 MG/ML VIAL 15 MG IV (08:46)
[2024-07-27] MEDS: ACETAMINOPHEN IV 1,000 MG/100 ML VIAL 400 MG IV (08:46)
== END 2024-07-27 10:18 | disposition home or self-care (01) ==
PROVIDERS: Emergency Medicine; Emergency Provider Emergency Medicine; Family Provider Internal Medicine; PCP Family Medicine
DX: R11.15 Cyclical vomiting syndrome unrelated to migraine (principal); E87.6 Hypokalemia; I72.8 Aneurysm of other specified arteries; R07.9 Chest pain, unspecified; R06.02 Shortness of breath
CPT/HCPCS: 36415; 71045; 74018; 74177; 80053; 83690; 85025; 93005; 96361; 96365; 96366; 96367; 96375; 99284; 99285; J0136; J1630; J1885; J2060; J2470; Q9967

== ENCOUNTER 2024-08-06 17:07 | Observation (INO) | payer BC, OTHER, SELFPAY ==
[2023-07-12 09:46] VITALS: PULSE 63; RESP 16; O2SAT 100
[2024-03-20 19:41] VITALS: BMI 25.8
[2024-08-06] VITALS (31 sets, daily range): BP systolic 125–182; BP diastolic 78–125; PULSE 67–105; RESP 6–32; TEMP 36.4; O2SAT 68–100; BMI 26.5
[2024-08-06 17:56] LABS: Add Manual Diff / Slide Review NO; Basophils Absolute Auto 0 /uL (0-100); Basophils Percent Auto 0.6 % (0-2); Eosinophils Absolute Auto 0 /uL (0-450); Eosinophils Percent Auto 0.4 % (2-4); Hematocrit 39.6 % (36-46); Hemoglobin 13.8 g/dL (12.0-16.0); Lymphocytes Absolute Auto 1100 /uL (1100-4500); Lymphocytes Percent Auto 13.7 % (25-40); Mean Corpuscular HGB Conc 34.8 % (30-36); Mean Corpuscular Hemoglobin 33.1 PG (26-34); Monocytes Absolute Auto 300 /uL (0-900); Monocytes Percent Auto 3.9 % (3-14); Neutrophils Absolute Auto 6400 /uL (1500-7000); Neutrophils Percent Auto 81.4 % (50-75); Platelet Count 289 X10^3/uL (150-400); Red Blood Cell Count 4.16 X10^6/uL (4.0-5.2); Red Cell Distribution Width 13.2 % (11.6-14.8); White Blood Cell Count 7.9 X10^3/uL (4.5-11.0)
[2024-08-06 18:02] LABS: Albumin 4.9 g/dL (3.5-5.0); Albumin Globulin Ratio 1.1 (1.0-2.8); Alkaline Phosphatase 109 U/L (38-126); Aspartate Aminotransferase 37 IU/L (14-36); BUN Creatinine Ratio 17.2 (6-22); Bilirubin Total 1.1 mg/dL (0.2-1.3); Blood Urea Nitrogen 15 mg/dL (7-17); Calcium 10.5 mg/dL (8.4-10.2); Carbon Dioxide 28 mmol/L (22-32); Chloride 90 mmol/L (98-107); Estimated Glomerular Filt Rate > 60 mL/min (>60); Globulin 4.4 g/dL (1.7-4.1); Glucose 171 mg/dL (70-100); HEMOLYSIS < 15 (0-50); Lipase 79 U/L (23-300); Sodium 135 mmol/L (137-145); Total Protein 9.3 g/dL (6.3-8.2)
[2024-08-06 18:09] LABS: Alanine Aminotransferase 34 IU/L (<35)
--- NOTE | 2024-08-06 18:11 | EKG_ITS ---
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
[2024-08-06 18:15] LABS: Potassium 2.6 mmol/L (3.4-5.1)
--- NOTE | 2024-08-06 18:22 | ED_ITS ---
HPI - Abdominal Pain General Chief Complaint: Abdominal Pain Stated Complaint: vomiting Time Seen by Provider: 08/06/24 18:03 Source: patient Mode of arrival: Ambulatory History of Present Illness HPI narrative: 48yoF well known to this emergency department with PMH cyclic vomiting syndrome, polysubstance use presents for nausea, vomting, abdominal pain similar to multiple previous visits for same. History otherwise limited as patient is moaning, thrashing on bed, saying help me over and over again. Shortly after arrival to ED bed patient removed all of her clothing and refused to put gown on. Related Data Previous Rx's Medication Instructions Recorded lorazepam 1 mg tablet (Ativan) 1 mg PO BID PRN anxiety #20 tabs 03/22/24 ondansetron 4 mg disintegrating 4 mg PO Q8H PRN nausea/vomiting 03/22/24 tablet #20 tabs oxycodone 10 mg tablet 10 mg PO Q4HR PRN Pain, Moderate 03/22/24 (4-6) #25 tabs scopolamine base 1 mg over 3 days 1 patch topical Q72H #5 ea 03/22/24 transdermal patch (Transderm-Scop) promethazine 25 mg rectal 25 mg MD Q4-6H PRN nausea and 07/27/24 suppository vomiting #12 ea Allergies Allergy/AdvReac Type Severity Reaction Status Date / Time latex [LATEX] Allergy Unknown Verified 08/06/24 17:09 metoclopramide AdvReac Unknown DYSTONIA Verified 08/06/24 17:09 [METOCLOPRAMIDE] Patient History Medical History Family history of angioedema MRSA (methicillin resistant staph aureus) culture positive Abscess Marijuana use, continuous Chronic abdominal pain Pancreatitis Cyclic vomiting syndrome Surgical History Hx of appendectomy Hx of cholecystectomy Family History Father Hypertension Mother Diabetes mellitus Daughter Angio-edema Other Colon cancer Social History household members: spouse Smoking Status: Current every day smoker alcohol intake: current Smoking Status: Current every day smoker tobacco type: vaping alcohol intake frequency: 3 or more drinks per day Alcohol type: wine Substance Use Type: marijuana and crack/cocaine Exam Initial Vital Signs Initial Vital Signs: Vital Signs Temperature 97.6 F 08/06/24 17:09 Pulse Rate 105 H 08/06/24 17:09 Respiratory Rate 20 08/06/24 17:09 Blood Pressure 182/101 H 08/06/24 17:09 Pulse Oximetry 99 08/06/24 17:09 Oxygen Delivery Method Room Air 08/06/24 17:09 Const: Awake, alert, uncomfortable, nontoxic appearing Cardiac: Tachycardia, regular rhythm RESP: unlabored, clear bilaterally, no wheezing GI: Soft, generalized tenderness to deep palpation without rebound or guarding Skin: Warm, Dry, intact, no rashes Neuro: AO x3, CN II-XII grossly intact, moves all extremities Course Orders Ordered: ED Orders 08/06/24 17:26 Complete Blood Count AUTO DIFF Stat Comprehensive Metabolic Panel Stat Lipase Stat MAG [Magnesium] Stat 08/06/24 18:04 EKG-12 Lead Stat 08/06/24 23:01 Urine Drug Screen, Rapid Stat Ondansetron HCl (Ondansetron 4 Mg/2 Ml Inj) 4 mg IV NOW PRN PRN Reason: Nausea And Vomiting Ondansetron HCl (Ondansetron 4 Mg Odt) 4 mg PO NOW PRN PRN Reason: Nausea And Vomiting Discontinued Medications Diazepam (Diazepam 10 Mg/2 Ml Syringe) 5 mg IV NOW ONE Stop: 08/06/24 19:45 Last Admin: 08/06/24 19:51 Dose: 5 mg Documented By: ELIEZER Diphenhydramine HCl (Diphenhydramine 50 Mg/Ml Vial) 50 mg IV NOW ONE Stop: 08/06/24 18:19 Last Admin: 08/06/24 18:33 Dose: 50 mg Documented By: ELIEZER Droperidol (Droperidol 5 Mg/2 Ml Vial) 5 mg IV NOW ONE Stop: 08/06/24 18:05 Last Admin: 08/06/24 18:19 Dose: Not Given Documented By: AYAKA Droperidol (Droperidol 5 Mg/2 Ml Vial) 2.5 mg IV NOW ONE Stop: 08/06/24 23:11 POTASSIUM CHLORIDE IN WATER (Potassium Cl 10 Meq/100 Ml Megan) 10 meq in 100 mls @ 100 mls/hr IV Q1H LINDA Stop: 08/06/24 22:29 Last Admin: 08/06/24 23:00 Dose: 100 mls/hr Documented By: Infusion: 08/06/24 21:31 Dose: Infused Documented By: Admin: 08/06/24 21:05 Dose: 100 mls/hr Documented By: Infusion: 08/06/24 21:00 Dose: Infused Documented By: Admin: 08/06/24 19:52 Dose: 100 mls/hr Documented By: Infusion: 08/06/24 19:52 Dose: Infused Documented By: Admin: 08/06/24 18:33 Dose: 100 mls/hr Documented By: ELIEZER Vital Signs Vital signs: Vital Signs - 8 hr 08/06/24 17:09 08/06/24 17:25 08/06/24 17:25 Temperature 97.6 F Pulse Rate 105 H 93 H Respiratory Rate 20 13 Blood Pressure 182/101 H 153/104 H Pulse Oximetry 99 97 Oxygen Delivery Method Room Air Oxygen Flow Rate 08/06/24 17:30 08/06/24 17:30 08/06/24 18:00 Temperature Pulse Rate 100 H Respiratory Rate 27 H Blood Pressure 175/125 H 172/99 H Pulse Oximetry 98 Oxygen Delivery Method Oxygen Flow Rate 08/06/24 18:00 08/06/24 18:30 08/06/24 18:36 Temperature Pulse Rate 85 89 101 H Respiratory Rate 19 26 H Blood Pressure Pulse Oximetry 100 98 Oxygen Delivery Method Oxygen Flow Rate 08/06/24 18:36 08/06/24 19:00 08/06/24 19:05 Temperature Pulse Rate 80 Respiratory Rate Blood Pressure 164/103 H 127/78 Pulse Oximetry 96 Oxygen Delivery Method Nasal Cannula Oxygen Flow Rate 4 08/06/24 19:05 08/06/24 19:10 08/06/24 19:10 Temperature Pulse Rate 79 Respiratory Rate Blood Pressure 125/79 129/83 Pulse Oximetry 97 Oxygen Delivery Method Oxygen Flow Rate 08/06/24 19:15 08/06/24 19:15 08/06/24 19:20 Temperature Pulse Rate 80 81 Respiratory Rate 29 H 29 H Blood Pressure 126/85 Pulse Oximetry 97 98 Oxygen Delivery Method Oxygen Flow Rate 08/06/24 19:20 08/06/24 19:25 08/06/24 19:25 Temperature Pulse Rate 79 Respiratory Rate 27 H Blood Pressure 128/86 136/90 Pulse Oximetry 98 Oxygen Delivery Method Oxygen Flow Rate 08/06/24 19:30 08/06/24 19:30 08/06/24 19:35 Temperature Pulse Rate 79 78 Respiratory Rate 27 H Blood Pressure 133/91 H Pulse Oximetry 98 99 Oxygen Delivery Method Oxygen Flow Rate 08/06/24 19:35 08/06/24 19:41 08/06/24 19:41 Temperature Pulse Rate 101 H Respiratory Rate Blood Pressure 134/92 H 170/96 H Pulse Oximetry 100 Oxygen Delivery Method Non -Rebreather Oxygen Flow Rate 15 08/06/24 20:00 08/06/24 20:21 08/06/24 20:30 Temperature Pulse Rate 99 H 83 82 Respiratory Rate 10 L 32 H 30 H Blood Pressure 136/87 139/94 H Pulse Oximetry 100 99 Oxygen Delivery Method Oxygen Flow Rate 08/06/24 20:40 08/06/24 20:50 08/06/24 21:10 Temperature Pulse Rate 80 80 103 H Respiratory Rate 27 H 28 H 32 H Blood Pressure 142/96 H 149/98 H Pulse Oximetry 99 99 93 Oxygen Delivery Method Room Air Oxygen Flow Rate 08/06/24 22:11 08/06/24 22:15 08/06/24 22:20 Temperature Pulse Rate 83 67 77 Respiratory Rate 6 L 12 12 Blood Pressure Pulse Oximetry 68 L 85 L 98 Oxygen Delivery Method Room Air Oximask Oximask Oxygen Flow Rate 8 8 08/06/24 22:30 08/06/24 22:39 08/06/24 22:50 Temperature Pulse Rate 71 76 78 Respiratory Rate 8 L 9 L 20 Blood Pressure 159/111 H Pulse Oximetry 97 96 98 Oxygen Delivery Method Oximask Oximask Oxygen Flow Rate 8 6 08/06/24 23:00 08/06/24 23:37 08/06/24 23:40 Temperature Pulse Rate 88 77 Respiratory Rate 30 H 7 L 12 Blood Pressure 145/103 H Pulse Oximetry 97 75 L 93 Oxygen Delivery Method Room Air Room Air Oximask Oxygen Flow Rate 8 08/06/24 23:50 Temperature Pulse Rate 96 H Respiratory Rate 14 Blood Pressure Pulse Oximetry 98 Oxygen Delivery Method Oximask Oxygen Flow Rate 6 MDM - Abdominal Pain Differential Diagnosis Differential diagnosis: Likely abdominal pain, gastroenteritis and pancreatitis Lab Data 08/06/24 17:26 08/06/24 17:26 Labs: Lab Results 08/06/24 Range/Units 17:26 WBC 7.9 (4.5-11.0) X10^3/uL RBC 4.16 (4.0-5.2) X10^6/uL Hgb 13.8 (12.0-16.0) g/dL Hct 39.6 (36-46) % MCV 95.0 (80-100) fL MCH 33.1 (26-34) PG MCHC 34.8 (30-36) % RDW 13.2 (11.6-14.8) % Plt Count 289 (150-400) X10^3/uL Neut % (Auto) 81.4 H (50-75) % Lymph % (Auto) 13.7 L (25-40) % [place] % (Auto) 3.9 (3-14) % Eos % (Auto) 0.4 L (2-4) % Baso % (Auto) 0.6 (0-2) % Neut # (Auto) 6400 (0951-8189) /uL Lymph # (Auto) 1100 (2264-3647) /uL [place] # (Auto) 300 (0-900) /uL Eos # (Auto) 0 (0-450) /uL Baso # (Auto) 0 (0-100) /uL Sodium 135 L (137-145) mmol/L Potassium 2.6 L* (3.4-5.1) mmol/L Chloride 90 L (98-107) mmol/L Carbon Dioxide 28 (22-32) mmol/L BUN 15 (7-17) mg/dL Creatinine 0.87 (0.52-1.04) mg/dL Estimated GFR > 60 (>60) mL/min BUN/Creatinine Ratio 17.2 (6-22) Glucose 171 H (70-100) mg/dL Calcium 10.5 H (8.4-10.2) mg/dL Magnesium 1.6 (1.6-2.3) mg/dL Total Bilirubin 1.1 (0.2-1.3) mg/dL AST 37 H (14-36) IU/L ALT 34 (<35) IU/L Alkaline Phosphatase 109 (38-126) U/L Total Protein 9.3 H (6.3-8.2) g/dL Albumin 4.9 (3.5-5.0) g/dL Globulin 4.4 H (1.7-4.1) g/dL Albumin/Globulin Ratio 1.1 (1.0-2.8) Lipase 79 (23-300) U/L ECG Data Interpretation: Normal sinus rhythm 85 beats per minute. Prolonged QTC 580, no STEMI MDM Narrative Medical decision making narrative: Patient presenting for nausea, vomiting, abdominal pain similar to previous flare-ups of patient's cyclic vomiting. EKG shows QTC 580, we will avoid QT prolonging agents. Laboratory work, IV fluids, Benadryl ordered. Labs significant for WBC count 7.9, hemoglobin 13.8, platelets 289, sodium 135, potassium 2.6, chloride 90, creatinine 0.87, glucose 171, normal liver enzymes. Since patient was not able to tolerate p.o. IV potassium ordered for repletion. Patient continues to moan and thrash in ED bed. Patient was able to sleep comfortably in ED bed after being given IV benadryl Patient was received all 40 mg IV potassium, QTC does appear to be improved on telemetry monitoring. Patient given 2.5 mg IV droperidol for nausea and vomiting. Patient continues to be nauseous and vomit despite receiving droperidol. Plan to admit patient for further treatment of her condition. Discharge Plan Departure Patient Disposition: Admitted as Observation Clinical Impression: Acute hypokalemia, Cyclic vomiting syndrome, Prolonged QT interval Admit Date/Time: 08/06/24 23:54 Admit Provider: Tono Mills
[2024-08-06] MEDS: diphenhydrAMINE 50 MG/ML VIAL IV (18:33)
[2024-08-06] MEDS: POTASSIUM CHLORIDE IN WATER 10 MEQ/100 ML PIGGYBACK 100 MEQ IV ×4 (18:33→23:00)
[2024-08-06 18:35] LABS: Magnesium 1.6 mg/dL (1.6-2.3)
--- NOTE | 2024-08-06 19:50 | PC.NURSE ---
Pt thrashing in bed and screaming loudly. Entered room to assist pt. Pt climbing out of bed and pulling on lines. Attempted to assist pt back to bed. Pt screaming don't touch me Tried to explain that the IV line is pulling out. Pt continues to scream and yelling for this RN to leave room. Additional staff in room. Left room with other staff in attendance. Pt requested loudly that this RN not come back.
[2024-08-06] MEDS: diazePAM 10 MG/2 ML SYRINGE 5 MG IV (19:51)
--- NOTE | 2024-08-06 19:51 | PC.NURSE ---
Responded to yelling in room, found patient screaming stating RN had grabbed her and indicating to arm stating don't you see the red anni?. I did not see see any anni to patients arm. Patient demanding RN leave her room, requested he step out. Techs present for situation and RN leaving room, I also left room and requested another staff member to address the IV and medications that previous nurse had been attempting to infuse.
--- NOTE | 2024-08-06 20:04 | PC.NURSE ---
CAUSTIC PURIFICATION OPERATOR NOTE: This bone density technician was present at the Nurses station out side the patients room. The patient was yelling out and scooting to the end of the bed. The RN went in to assist her for safety and to prevent the iv from being pulled out of her arm. When the RN assisted her she screamed and stated don't touch me. I did not witness any situation that would cause me concern between RN and patient. Previous tech reported at shift change the patient was exhibiting the same behavior of yelling out.
--- NOTE | 2024-08-06 20:09 | PC.NURSE ---
Pt placed on NRB. SPO2 dipped to 71% RA while sleeping. Pt easily arousable and oxygen comes up to >90% RA when aroused. Pt placed on temporary support for NRB for oxygen support. MD Mccloud aware.
--- NOTE | 2024-08-06 21:00 | PC.NURSE ---
Patient continues to constantly thrash on stretcher then intermittently exit bed and attempt to walk around room naked causing IV line to be pulled and tugged on. Patient constantly moaning out. This RN attempted to ask patient questions about how she is feeling, patient responded with I hurt everywhere, I need more Benadryl to go to sleep and I need something for pain. This RN asked where she hurts and if she was injured, patient responded with, Don't talk to me like I'm stupid. This RN frequently attempted to direct patient back into bed and to reattach tele leads and keep IV lines safe, patient responded with , Don't talk to me, then continued to stretch IV lines while moving in room. This RN asked patient if she would like to get clothes on or a gown, she responded I can be naked if I want, this is my room. Patient again exiting bed trying to reach for water, this RN asked patient to please remain in bed and assisted with getting water cup, Patient returned to bed then began to twist and roll in bed, tangling IV line and cardiac tele leads, she then began vomiting over bed rails onto floor. MD updated about patient behavior and symptoms.
--- NOTE | 2024-08-06 21:35 | PC.NURSE ---
Patient yelling out that her IV hurts, this RN stopped IV infusions and assessed L forearm IV to find it swollen, red and tender, IV removed at this time r/t presumed infiltration. updated that patient's IV access was lost and that she still had approximately 1.5 bags of IV potassium that needed to be infused. Patient continues to flail around naked on her stretcher, refusing to keep her body clothed or even a blanket on. Patient has removed nearly all cardiac tele wires, BP line, and pulse ox line at this time from her uninterrupted disorganized movements. This RN removed the remaining monitor leads and wires, as at this point they are more of a hazard and safety risk given patient's behavior. Patient demanding to this RN to put another IV in, this RN stated that I will not be placing an IV line in at this time and that Dr. Mccloud will be coming to talk to her.
--- NOTE | 2024-08-06 22:20 | PC.NURSE ---
This RN entered room to prepare to get new IV access, patient noted to be resting on stretcher, no longer thrashing. Cardiac leads placed back on patient as well as BP cuff and pulse ox. Patient noted to have slow respirations, but with verbal cue, patient began breathing more deeply and frequently. spO2 readings at 68% on more at this time. Patient placed on Oxymask at 8L and encouraged to keep taking deep breaths which she did. Patient's spO2 improved to 95-98%. Patient left on Oxymask while sleeping and she continued to require intermittent cues to breath deeper and more frequently.
--- NOTE | 2024-08-06 23:40 | PC.NURSE ---
Ultrasound IV placed to R dorsal forearm, IV potassium started again per orders. Patient awoke from sleeping at this time and removed oxymask, and became restless again, constantly rocking and twisting on stretcher, pulling monitoring leads and wires off again. Patient requesting Benadryl to sleep again. This RN encouraged patient to remain still to protect IV line, which patient refused and instead exited bed. Patient demanding to drink milk, which this RN advised against as she has been nauseous and retching after sips of water. Patient allowed small amount of milk after speaking with MD. Patient proceeded to vomit 400mls emesis after drinking milk. Patient returned to her bed and quickly fell asleep, monitoring wires and leads reapplied, spO2 reading at 75% on RA. Patient stimulated to encouraged to take deep breaths while oxymask was reapplied and supplemental O2 given at 8L. Patient remains asleep, spontaneous unlabored respirations observed, and Oxymask reamins in place on 6L.
[2024-08-07] VITALS (12 sets, daily range): BP systolic 116–144; BP diastolic 75–94; PULSE 70–94; RESP 14–30; TEMP 36.9–37; O2SAT 94–98; BMI 26.5
[2024-08-07] MEDS: PANTOPRAZOLE 40 MG VIAL 20 MG IV (01:17)
[2024-08-07] MEDS: LACTATED RINGERS 1,000 ML 100 ML IV ×2 (01:18→09:57)
[2024-08-07] MEDS: DROPERIDOL 5 MG/2 ML VIAL 2.5 MG IV (01:20)
[2024-08-07] MEDS: ONDANSETRON 4 MG/2 ML INJ IV (01:35)
[2024-08-07] MEDS: diphenhydrAMINE 50 MG/ML VIAL 25 MG IV ×2 (02:17→12:59)
--- NOTE | 2024-08-07 02:41 | PC.NURSE ---
pt arrived from ER via stretcher, restless/agitated, A&O but anxious, mildly redirectable, wanting benadryl, incont of mod amts of liquid stool, brief and cream applied, vomiting mod amt bile, meds given as ordered, pt destating to 70s on RA, oximask 6L applied with effect, bed alarm on, call quevedo within reach, pt and sig. other educated on use of call quevedo, continue to monitor
--- NOTE | 2024-08-07 04:01 | PM.HP.1 ---
History of Present Illness History of Present Illness Date Patient Seen: 08/07/24 Chief complaint: vomiting Narrative: 48 y/o with PMH of cyclic vomiting, presented with intractable nausea and vomiting, hypokalemia, poor oral intake for 2 days, anxious and then agitated. She was unable to talk or even open her eyes at the time of admission after she had treatment with Valium, benadryl, droperidole and Dilaudid. Identical presentation in February this year when she was hospitalized. [facility] Medical History Family history of angioedema MRSA (methicillin resistant staph aureus) culture positive Abscess Marijuana use, continuous Chronic abdominal pain Pancreatitis Cyclic vomiting syndrome Surgical History Hx of appendectomy Hx of cholecystectomy Family History Father Hypertension Mother Diabetes mellitus Daughter Angio-edema Other Colon cancer Social History household members: spouse Smoking Status: Current every day smoker alcohol intake: current Meds Home Medications and Allergies Home Medications Medication Instructions Recorded Confirmed Type lorazepam 1 mg tablet (Ativan) 1 mg PO BID PRN anxiety #20 tabs 03/22/24 08/07/24 Rx scopolamine base 1 mg over 3 days 1 patch topical Q72H #5 ea 03/22/24 08/07/24 Rx transdermal patch (Transderm-Scop) promethazine 25 mg rectal 25 mg [place] Q4-6H PRN nausea and 07/27/24 08/07/24 Rx suppository vomiting #12 ea fluoxetine 20 mg capsule 20 mg PO DAILY 08/07/24 08/07/24 History Allergies Allergy/AdvReac Type Severity Reaction Status Date / Time latex [LATEX] Allergy Unknown Verified 08/06/24 17:09 metoclopramide AdvReac Unknown DYSTONIA Verified 08/06/24 17:09 [METOCLOPRAMIDE] Review of Systems Review of Systems Narrative: unable to talk, sedated, unobtainable Exam Vital Signs (past 8 hours): - 08/06/24 20:21 08/06/24 20:30 08/06/24 20:40 Pulse Rate 83 82 80 Respiratory Rate 32 H 30 H 27 H Blood Pressure 136/87 139/94 H 142/96 H Pulse Oximetry 100 99 99 Oxygen Delivery Method Oxygen Flow Rate 08/06/24 20:50 08/06/24 21:10 08/06/24 22:11 Pulse Rate 80 103 H 83 Respiratory Rate 28 H 32 H 6 L Blood Pressure 149/98 H Pulse Oximetry 99 93 68 L Oxygen Delivery Method Room Air Room Air Oxygen Flow Rate 08/06/24 22:15 08/06/24 22:20 08/06/24 22:30 Pulse Rate 67 77 71 Respiratory Rate 12 12 8 L Blood Pressure Pulse Oximetry 85 L 98 97 Oxygen Delivery Method Oximask Oximask Oxygen Flow Rate 8 8 08/06/24 22:39 08/06/24 22:50 08/06/24 23:00 Pulse Rate 76 78 88 Respiratory Rate 9 L 20 30 H Blood Pressure 159/111 H 145/103 H Pulse Oximetry 96 98 97 Oxygen Delivery Method Oximask Oximask Room Air Oxygen Flow Rate 8 6 08/06/24 23:37 08/06/24 23:40 08/06/24 23:50 Pulse Rate 77 96 H Respiratory Rate 7 L 12 14 Blood Pressure Pulse Oximetry 75 L 93 98 Oxygen Delivery Method Room Air Oximask Oximask Oxygen Flow Rate 8 6 08/07/24 00:10 08/07/24 00:20 08/07/24 00:22 Pulse Rate 78 85 Respiratory Rate 14 29 H Blood Pressure Pulse Oximetry 95 97 Oxygen Delivery Method Oximask Oximask Oxygen Flow Rate 6 08/07/24 00:30 08/07/24 00:40 Pulse Rate 87 94 H Respiratory Rate 29 H 18 Blood Pressure Pulse Oximetry 97 98 Oxygen Delivery Method Oximask Oxygen Flow Rate 6 Oxygen Delivery Method Oximask Oxygen Flow Rate 6 Const Other: sleeping soundly, at bedside Resp Other: normal respiratory effort Cardio Other: RRR GI Other: w/o distension Objective ECG Impression: NSR 85, LVH, QTc 580 ms Labs 08/07/24 04:19 08/07/24 04:19 Labs: Laboratory Results - last 24 hr 08/06/24 17:26 WBC 7.9 RBC 4.16 Hgb 13.8 Hct 39.6 MCV 95.0 MCH 33.1 MCHC 34.8 RDW 13.2 Plt Count 289 Neut % (Auto) 81.4 H Lymph % (Auto) 13.7 L [place] % (Auto) 3.9 Eos % (Auto) 0.4 L Baso % (Auto) 0.6 Neut # (Auto) 6400 Lymph # (Auto) 1100 [place] # (Auto) 300 Eos # (Auto) 0 Baso # (Auto) 0 Sodium 135 L Potassium 2.6 L* Chloride 90 L Carbon Dioxide 28 BUN 15 Creatinine 0.87 Estimated GFR > 60 BUN/Creatinine Ratio 17.2 Glucose 171 H Calcium 10.5 H Magnesium 1.6 Total Bilirubin 1.1 AST 37 H ALT 34 Alkaline Phosphatase 109 Total Protein 9.3 H Albumin 4.9 Globulin 4.4 H Albumin/Globulin Ratio 1.1 Lipase 79 Assessment & Plan Assessment and plan (1) Cyclic vomiting syndrome: Status: Acute (2) Hypokalemia: Status: Acute (3) Polysubstance (including opioids) dependence with physiol dependence: Status: Acute Assessment & Plan narrative: Cyclic Vomiting - antiemetics, QTc prolonged - IVFs - pain management Anxiety, Agitation, polysubstance abuse - prn sedation Hypokalemia -supplementing -monitored Time-Based Coding :: [TOTAL MINUTES] spent with patient and on the chart (including review of chart, obtaining history, exam, reviewing outside data, placing orders, documenting exam and treatment plan, and counseling patient) on [DATE].
[2024-08-07 04:54] LABS: Add Manual Diff / Slide Review NO; Basophils Absolute Auto 100 /uL (0-100); Eosinophils Absolute Auto 0 /uL (0-450); Eosinophils Percent Auto 0.1 % (2-4); Hematocrit 39.8 % (36-46); Hemoglobin 13.7 g/dL (12.0-16.0); Lymphocytes Absolute Auto 1700 /uL (1100-4500); Lymphocytes Percent Auto 21.4 % (25-40); Mean Corpuscular HGB Conc 34.4 % (30-36); Mean Corpuscular Hemoglobin 32.4 PG (26-34); Mean Corpuscular Volume 94.2 fL (80-100); Monocytes Absolute Auto 600 /uL (0-900); Monocytes Percent Auto 7.4 % (3-14); Neutrophils Absolute Auto 5500 /uL (1500-7000); Neutrophils Percent Auto 70.1 % (50-75); Platelet Count 281 X10^3/uL (150-400); Red Blood Cell Count 4.23 X10^6/uL (4.0-5.2); Red Cell Distribution Width 12.9 % (11.6-14.8); White Blood Cell Count 7.8 X10^3/uL (4.5-11.0)
[2024-08-07 04:58] LABS: BUN Creatinine Ratio 17.8 (6-22); Blood Urea Nitrogen 19 mg/dL (7-17); Calcium 9.9 mg/dL (8.4-10.2); Carbon Dioxide 34 mmol/L (22-32); Chloride 91 mmol/L (98-107); Estimated Glomerular Filt Rate > 60 mL/min (>60); Glucose 133 mg/dL (70-100); HEMOLYSIS < 15 (0-50); Magnesium 1.9 mg/dL (1.6-2.3); Sodium 137 mmol/L (137-145)
[2024-08-07 05:01] LABS: Potassium 2.5 mmol/L (3.4-5.1)
[2024-08-07] MEDS: POTASSIUM CHLORIDE IN WATER 10 MEQ/100 ML PIGGYBACK 100 MEQ IV ×6 (05:55→11:20)
--- NOTE | 2024-08-07 09:08 | PC.NURSE ---
Pt resting comfortably at start of shift. Up to bathroom SBA, declines providing sample for UA (took hat out of toilet after explanation of reasoning). Able to tolerate PO fluids briefly, instructed to start slow with water. Pt drank entire carton of milk, two cranberry juices in under 2 minutes. Pt c/o nausea, retching. Pt instructed to keep PO fluids to a minimum and sip water & ice chips. Pt declines. Pacing in room with PCT SBA. Back to bed. Emesis 500mL. Provider notified.
[2024-08-07] MEDS: PROCHLORPERAZINE 10 MG/2 ML VIAL 5 MG IV ×2 (09:52→14:13)
[2024-08-07 10:16] LABS: Ur Creatinine Normal (Normal); Ur Specific Gravity Normal (Normal); Urine pH Normal (Normal)
[2024-08-07 10:17] LABS: Urine Amphetamines Negative (Negative); Urine Barbiturates Negative (Negative); Urine Benzodiazepines Positive (Negative); Urine Cocaine Positive (Negative); Urine MDMA Negative (Negative); Urine Methadone Negative (Negative); Urine Methamphetamines Negative (Negative); Urine Opiates Negative (Negative); Urine Oxycodone Negative (Negative); Urine Phencyclidine Negative (Negative); Urine THC Positive (Negative); Urine Tricyclic Antidepressant Negative (Negative)
[2024-08-07 11:52] LABS: BUN Creatinine Ratio 15.5 (6-22); Blood Urea Nitrogen 16 mg/dL (7-17); Calcium 9.5 mg/dL (8.4-10.2); Carbon Dioxide 25 mmol/L (22-32); Chloride 94 mmol/L (98-107); Estimated Glomerular Filt Rate > 60 mL/min (>60); Glucose 148 mg/dL (70-100); HEMOLYSIS < 15 (0-50); Potassium 3.4 mmol/L (3.4-5.1); Sodium 133 mmol/L (137-145)
--- NOTE | 2024-08-07 14:18 | PC.NURSE ---
po intake/nausea bed alarm signaling, pt up to BR approx 1340. denies nausea. states im starving, dont you have any snacks?. informed pt on snack options available in nutrition room. pt requesting/given half sandwich and juice with sprite. pt consumed both within 10 minutes and stated nauseated. Medicated with compazine ONCE dose as ordered. slow po intake encouraged.
--- NOTE | 2024-08-07 14:21 | P.HP_ITS ---
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 She was unable to talk or even open her eyes at the time of admission after she had treatment with Valium, benadryl, droperidole and Dilaudid. Identical presentation in February this year when she was hospitalized. In interim patient has much improved with IVF and antiemetics. [facility] Medical History Family history of angioedema MRSA (methicillin resistant staph aureus) culture positive Abscess Marijuana use, continuous Chronic abdominal pain Pancreatitis Cyclic vomiting syndrome Surgical History Hx of appendectomy Hx of cholecystectomy Family History Father Hypertension Mother Diabetes mellitus Daughter Angio-edema Other Colon cancer Social History household members: spouse Smoking Status: Current every day smoker alcohol intake: current Meds Home Medications and Allergies Home Medications Medication Instructions Recorded Confirmed Type lorazepam 1 mg tablet (Ativan) 1 mg PO BID PRN anxiety #20 tabs 03/22/24 08/07/24 Rx scopolamine base 1 mg over 3 days 1 patch topical Q72H #5 ea 03/22/24 08/07/24 Rx transdermal patch (Transderm-Scop) promethazine 25 mg rectal 25 mg NM Q4-6H PRN nausea and 07/27/24 08/07/24 Rx suppository vomiting #12 ea fluoxetine 20 mg capsule 20 mg PO DAILY 08/07/24 08/07/24 History Allergies Allergy/AdvReac Type Severity Reaction Status Date / Time latex [LATEX] Allergy Unknown Verified 08/06/24 17:09 metoclopramide AdvReac Unknown DYSTONIA Verified 08/06/24 17:09 [METOCLOPRAMIDE] Review of Systems Review of Systems Narrative: all systems reviewed, negative unless mentioned in HPI Exam Vital Signs (past 8 hours): - 08/07/24 07:00 08/07/24 07:29 08/07/24 08:00 Temperature Pulse Rate 93 H 80 Respiratory Rate Blood Pressure 116/76 Pulse Oximetry 94 Oxygen Delivery Method Room Air Room Air Oxygen Flow Rate 0 Fraction of Inspired Oxygen 21 08/07/24 09:18 08/07/24 09:52 08/07/24 12:00 Temperature 98.6 F 98.4 F Pulse Rate 75 85 84 Respiratory Rate 25 H 18 Blood Pressure 116/75 144/94 H Pulse Oximetry 96 97 Oxygen Delivery Method Oxygen Flow Rate 0 Fraction of Inspired Oxygen 08/07/24 14:13 Temperature Pulse Rate 84 Respiratory Rate Blood Pressure 144/94 H Pulse Oximetry Oxygen Delivery Method Oxygen Flow Rate Fraction of Inspired Oxygen Fraction of Inspired Oxygen 21 SaO2/FiO2 Ratio 447 Oxygen Delivery Method Room Air Oxygen Flow Rate 0 Narrative Exam Narrative: general: well appearing lung: normal effort cardio: RRR abd: soft non-tender neuro: no focal deficits Objective Labs 08/07/24 04:19 08/07/24 11:20 Labs: Laboratory Results - last 24 hr 08/06/24 08/06/24 08/07/24 09:45 17:26 04:19 WBC 7.9 7.8 RBC 4.16 4.23 Hgb 13.8 13.7 Hct 39.6 39.8 MCV 95.0 94.2 MCH 33.1 32.4 MCHC 34.8 34.4 RDW 13.2 12.9 Plt Count 289 281 Neut % (Auto) 81.4 H 70.1 Lymph % (Auto) 13.7 L 21.4 L [place] % (Auto) 3.9 7.4 Eos % (Auto) 0.4 L 0.1 L Baso % (Auto) 0.6 1.0 Neut # (Auto) 6400 5500 Lymph # (Auto) 1100 1700 [place] # (Auto) 300 600 Eos # (Auto) 0 0 Baso # (Auto) 0 100 Sodium 135 L 137 Potassium 2.6 L* 2.5 L* Chloride 90 L 91 L Carbon Dioxide 28 34 H BUN 15 19 H Creatinine 0.87 1.07 H Estimated GFR > 60 > 60 BUN/Creatinine Ratio 17.2 17.8 Glucose 171 H 133 H Calcium 10.5 H 9.9 Magnesium 1.6 1.9 Total Bilirubin 1.1 AST 37 H ALT 34 Alkaline Phosphatase 109 Total Protein 9.3 H Albumin 4.9 Globulin 4.4 H Albumin/Globulin Ratio 1.1 Lipase 79 U Opiates 300ng/mL cut Negative Ur Oxycodone Screen Negative Urine Methadone Screen Negative Ur Barbiturates Screen Negative U Tricyclic Antidepress Negative Ur Phencyclidine Scrn Negative Ur Amphetamines Screen Negative U Methamphetamines Scrn Negative Ur MDMA Scrn (Ecstasy) Negative U Benzodiazepines Scrn Positive H Urine Cocaine Screen Positive H U Marijuana (THC) Screen Positive H Urine pH Normal Urine Specific [place] Normal Ur Creatinine Normal 08/07/24 11:20 WBC RBC Hgb Hct MCV MCH MCHC RDW Plt Count Neut % (Auto) Lymph % (Auto) [place] % (Auto) Eos % (Auto) Baso % (Auto) Neut # (Auto) Lymph # (Auto) [place] # (Auto) Eos # (Auto) Baso # (Auto) Sodium 133 L Potassium 3.4 Chloride 94 L Carbon Dioxide 25 BUN 16 Creatinine 1.03 Estimated GFR > 60 BUN/Creatinine Ratio 15.5 Glucose 148 H Calcium 9.5 Magnesium Total Bilirubin AST ALT Alkaline Phosphatase Total Protein Albumin Globulin Albumin/Globulin Ratio Lipase U Opiates 300ng/mL cut Ur Oxycodone Screen Urine Methadone Screen Ur Barbiturates Screen U Tricyclic Antidepress Ur Phencyclidine Scrn Ur Amphetamines Screen U Methamphetamines Scrn Ur MDMA Scrn (Ecstasy) U Benzodiazepines Scrn Urine Cocaine Screen U Marijuana (THC) Screen Urine pH Urine Specific [place] Ur Creatinine Assessment & Plan Assessment and plan (1) Cyclic vomiting syndrome: Status: Acute (2) Hypokalemia: Status: Acute (3) Polysubstance (including opioids) dependence with physiol dependence: Status: Acute Assessment & Plan narrative: Cyclic Vomiting - antiemetics, QTc prolonged - IVFs - pain management Anxiety, Agitation, polysubstance abuse - prn sedation Hypokalemia -supplementing -monitored Time-Based Coding :: [TOTAL MINUTES] spent with patient and on the chart (including review of chart, obtaining history, exam, reviewing outside data, placing orders, documenting exam and treatment plan, and counseling patient) on [DATE].
--- NOTE | 2024-08-07 14:46 | CM.DANOTE ---
Patient is a 48 yo female who was admitted OBS Status on 08/06/24 for Cyclical Vomiting. Pt has [employer] and [facility] for insurance and her PCP is Dr. Montoya at [facility]. EMR was reviewed. Per MD, pt with intractable vomiting, hx of anxiety and depression and many ED visits and recently admitted for similar in February 2024 this year. Per RN, pt had significant agitation and behaviors at admission but now ambulating well and somewhat impulsive but cooperative. Pt finally allowed urine sample and UDS+ for THC, benzos, cocaine which was similar to admission in February. SW met bedside with pt and Sig Jorge Mackey and explained role and pt ambulating the room independently and confirms they still live in [place] and pt works parttime and does not use DME for ambulation. Pt recently established with PCP at [facility] with Dr. Zacarias(sp?). Pt has local family as Dtr and very young granddtr were visiting earlier. Pt denies any current counseling/mental health services in place as she was given resources during her admission in February but is aware that [facility] has these resources available as well. Pt currently denies any need for ALICIA tx or resources as she states she only uses occasionally or on weekends. Sig Other confirms he can provide transport home at d/c and preference is home tomorrow and do not anticipate discharge needs. Plan: SW to follow closely for plan of discharge home via Sig Other POV when medically stable and any further identified discharge planning needs. 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 No Advance Directives on File No History Provided By Patient,Family Member,Medical Record Has Patient been admitted in last 30 No days? Comment last admit in February 2024 this year for similar, d/c home with resources Prior Living Arrangements Apartment/Condo Household Members spouse Type of transporation used prior to Drives own vehicle admit Independent with ADL's Yes Is patient alert and oriented? Yes Caregiver for Another No Barriers to Discharge No Comment Anticipate patient will return home w/family and encouragement to follow up outpatient. Discharge Plan Home Transportation Arrangement Family to provide transport Referrals Initiated None needed Additional Comment Following closely in case DC needs or concerns arise Whiteboard Updated in Patient Room with Yes name and ext. # of Shrimp Peeling Machine Tender Review Status In Process Please Provide Date Initial DC 08/07/24 Assessment Was Performed Next Review Type Continued Stay Review
[2024-08-07 15:04] LABS: BUN Creatinine Ratio 17.7 (6-22); Blood Urea Nitrogen 17 mg/dL (7-17); Calcium 9.1 mg/dL (8.4-10.2); Carbon Dioxide 30 mmol/L (22-32); Chloride 93 mmol/L (98-107); Estimated Glomerular Filt Rate > 60 mL/min (>60); Glucose 118 mg/dL (70-100); HEMOLYSIS 41 (0-50); Potassium 3.3 mmol/L (3.4-5.1); Sodium 133 mmol/L (137-145)
--- NOTE | 2024-08-07 15:31 | P.DS_ITS ---
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 She was unable to talk or even open her eyes at the time of admission after she had treatment with Valium, benadryl, droperidole and Dilaudid. Identical presentation in February this year when she was hospitalized. In interim patient has much improved with IVF and antiemetics. Discharge Providers Provider Date of admission: 08/06/24 23:54 Discharge Date: 08/08/24 Primary care physician: Marbin Regalado MD Discharge provider: Hugh Teixeira MD Summary Hospital Course Hospital Course: Patient admitted with acute on chronic vomiting and acute on chronic hypokalemia. Electrolytes were repleted and IVF given with improvement in symptoms. Patient was able to tolerate liquids and was agreeable to return home. She remains high re-admission risk. Patient was sent home with Rx for potassium and magnesium supplementation. Status at Discharge Cognitive/behavioral status at discharge: oriented and calm Time Spent with Patient Time spent: Less than 30 minutes Exam Vital Signs (past 8 hours): - 08/07/24 08:00 08/07/24 09:18 08/07/24 09:52 Temperature 98.6 F Pulse Rate 80 75 85 Respiratory Rate 25 H Blood Pressure 116/76 116/75 Pulse Oximetry 96 Oxygen Flow Rate 0 08/07/24 12:00 08/07/24 14:13 Temperature 98.4 F Pulse Rate 84 84 Respiratory Rate 18 Blood Pressure 144/94 H 144/94 H Pulse Oximetry 97 Oxygen Flow Rate Fraction of Inspired Oxygen 21 SaO2/FiO2 Ratio 447 Oxygen Delivery Method Room Air Oxygen Flow Rate 0 Narrative Exam Narrative: general: not in distress, not ill appearing lung: normal effort abd: soft non-tender neuro: no obvious focal deficits psych: cooperative Objective Labs 08/07/24 04:19 08/07/24 14:40 Labs: Laboratory Results - last 24 hr 08/06/24 08/06/24 08/07/24 09:45 17:26 04:19 WBC 7.9 7.8 RBC 4.16 4.23 Hgb 13.8 13.7 Hct 39.6 39.8 MCV 95.0 94.2 MCH 33.1 32.4 MCHC 34.8 34.4 RDW 13.2 12.9 Plt Count 289 281 Neut % (Auto) 81.4 H 70.1 Lymph % (Auto) 13.7 L 21.4 L [place] % (Auto) 3.9 7.4 Eos % (Auto) 0.4 L 0.1 L Baso % (Auto) 0.6 1.0 Neut # (Auto) 6400 5500 Lymph # (Auto) 1100 1700 [place] # (Auto) 300 600 Eos # (Auto) 0 0 Baso # (Auto) 0 100 Sodium 135 L 137 Potassium 2.6 L* 2.5 L* Chloride 90 L 91 L Carbon Dioxide 28 34 H BUN 15 19 H Creatinine 0.87 1.07 H Estimated GFR > 60 > 60 BUN/Creatinine Ratio 17.2 17.8 Glucose 171 H 133 H Calcium 10.5 H 9.9 Magnesium 1.6 1.9 Total Bilirubin 1.1 AST 37 H ALT 34 Alkaline Phosphatase 109 Total Protein 9.3 H Albumin 4.9 Globulin 4.4 H Albumin/Globulin Ratio 1.1 Lipase 79 U Opiates 300ng/mL cut Negative Ur Oxycodone Screen Negative Urine Methadone Screen Negative Ur Barbiturates Screen Negative U Tricyclic Antidepress Negative Ur Phencyclidine Scrn Negative Ur Amphetamines Screen Negative U Methamphetamines Scrn Negative Ur MDMA Scrn (Ecstasy) Negative U Benzodiazepines Scrn Positive H Urine Cocaine Screen Positive H U Marijuana (THC) Screen Positive H Urine pH Normal Urine Specific [place] Normal Ur Creatinine Normal 08/07/24 08/07/24 11:20 14:40 WBC RBC Hgb Hct MCV MCH MCHC RDW Plt Count Neut % (Auto) Lymph % (Auto) [place] % (Auto) Eos % (Auto) Baso % (Auto) Neut # (Auto) Lymph # (Auto) [place] # (Auto) Eos # (Auto) Baso # (Auto) Sodium 133 L 133 L Potassium 3.4 3.3 L Chloride 94 L 93 L Carbon Dioxide 25 30 BUN 16 17 Creatinine 1.03 0.96 Estimated GFR > 60 > 60 BUN/Creatinine Ratio 15.5 17.7 Glucose 148 H 118 H Calcium 9.5 9.1 Magnesium Total Bilirubin AST ALT Alkaline Phosphatase Total Protein Albumin Globulin Albumin/Globulin Ratio Lipase U Opiates 300ng/mL cut Ur Oxycodone Screen Urine Methadone Screen Ur Barbiturates Screen U Tricyclic Antidepress Ur Phencyclidine Scrn Ur Amphetamines Screen U Methamphetamines Scrn Ur MDMA Scrn (Ecstasy) U Benzodiazepines Scrn Urine Cocaine Screen U Marijuana (THC) Screen Urine pH Urine Specific [place] Ur Creatinine PFSH Medical History Family history of angioedema MRSA (methicillin resistant staph aureus) culture positive Abscess Marijuana use, continuous Chronic abdominal pain Pancreatitis Cyclic vomiting syndrome Surgical History Hx of appendectomy Hx of cholecystectomy Family History Father Hypertension Mother Diabetes mellitus Daughter Angio-edema Other Colon cancer Social History household members: spouse Smoking Status: Current every day smoker alcohol intake: current Discharge Assessment & Plan Assessment and Plan Assessment: #Acute on Chronic N/V in the setting of cyclic vomiting syndrome and polysubstance abuse #Acute on Chronic Hypokalemia Plan of Treatment: Rx for 20meq K+ BID for 5 days Rx fo Mg2+ supplement Recommend follow-up with PCP in 1wk Discharge Plan Discharge Plan Patient Disposition: Home Provider Discharge Comment: Patient is stable for discharge, electrolytes have been replaced. Will send further replacement Discharge orders & Medications Prescriptions: New potassium chloride 20 mEq tablet extended release 20 meq PO BID Qty: 10 0RF magnesium chloride 64 mg magnesium tablet 64 mg PO BID Qty: 30 0RF Continued fluoxetine 20 mg capsule 20 mg PO DAILY scopolamine base [Transderm-Scop] 1 mg over 3 days Patch 3 Day 1 patch topical Q72H Qty: 5 0RF lorazepam [Ativan] 1 mg tablet 1 mg PO BID PRN (Reason: anxiety) Qty: 20 0RF promethazine 25 mg suppository 25 mg [place] Q4-6H PRN (Reason: nausea and vomiting) Qty: 12 0RF Follow up/Referrals: Marbin Regalado MD [Primary Care Provider] - Diet/Activity/Treatments Diet: Diet as Tolerated Visit Report/Discharge Packet Instructions: DI for Hypokalemia, Potassium Chloride (By mouth) Stand Alone Forms: Patient Portal/API, Stroke Signs & Symptoms Discharge Data Primary Care Provider: Marbin Regalado Attending Provider: Tono Mills Admit Date/Time: 08/06/24 23:54 Quality MIPS - Admit I confirm the patient?s Advance Care Plan is present, Code status is documented, Surrogate decision maker is in patient?s record [If Yes, STOP here]: Yes MIPS - Meds 'Current medications' to include all prescriptions, [id number] products, herbals, cannabis/cannabidiol products, and vitamin/mineral/dietary (nutritional) supplements. I have utilized all available resources to obtain, update, or review the patient?s current medications. [If Yes, STOP here]: Yes
[2024-08-07] MEDS: POTASSIUM CHLORIDE 20 MEQ TAB 80 MEQ PO (15:33)
== END 2024-08-07 16:23 | disposition home or self-care (01) ==
LOC: ED 18:03 → AC 23:55 → ICU 08-07 00:35
PROVIDERS: Emergency Medicine; Student in an Organized Health Care Education/Training Program; Admitting Provider Internal Medicine; Emergency Provider Emergency Medicine; Family Provider Internal Medicine; PCP Family Medicine; Referring Provider Emergency Medicine; Visit Provider Internal Medicine
DX: R10.9 Unspecified abdominal pain (principal); G43.A0 Cyclical vomiting, in migraine, not intractable; E87.6 Hypokalemia; F19.10 Other psychoactive substance abuse, uncomplicated
CPT/HCPCS: 36415; 80048; 80053; 80305; 83690; 83735; 85025; 93005; 94762; 96361; 96365; 96366; 96375; 96376; 99284; 99285; G0378; J0780; J1200; J1790; J2405; J2470; J3360

== ENCOUNTER → 2024-08-12 09:52 | Outpatient (CLI) | payer OTHER, MEDICAID, SELFPAY ==
[2023-07-12 09:46] VITALS: PULSE 63; RESP 16; O2SAT 100
[2024-08-07 01:22] VITALS: BMI 26.5
--- NOTE | 2024-08-12 09:53 | DI.MG.S_ITS ---
BILATERAL DIGITAL SCREENING MAMMOGRAM 3D/2D WITH CAD: 08/12/2024 CLINICAL: Routine screening. Family history of breast cancer. Baseline exam. No prior exams were available for comparison. There are scattered areas of fibroglandular density (category b / 25%-50% glandular tissue). Current study was also evaluated with a Computer Aided Detection (CAD) system. No significant masses, calcifications, or other findings are seen in either breast. IMPRESSION: NEGATIVE There is no mammographic evidence of malignancy. A 1 year screening mammogram is recommended. Based on the Tyrer Cuzick model (a risk assessment model) the patient's lifetime risk is 8.2% and her 10 year risk is 1.9%. According to the ACR, ACS, and NCCN guidelines, an annual breast MRI exam along with mammogram is recommended if the patient's lifetime risk is 20% or greater. This exam was interpreted at Station ID: [id number]. NOTE: For mammograms, a report in lay terms will be sent to the patient. Approximately 15% of breast malignancies will not be visualized mammographically. In the management of a palpable breast mass, a negative mammogram must not discourage biopsy of a clinically suspicious lesion. Electronically Signed By: Harini ma/fuad:08/14/2024 12:36:05 letter sent: Normal Exam ACR BI-RADS Category 1: Negative [id number]
== END ==
LOC: MAMMO 09:52
PROVIDERS: Family Provider Internal Medicine; PCP Family Medicine; Referring Provider Family Medicine; Visit Provider Family Medicine
DX: Z12.31 Encounter for screening mammogram for malignant neoplasm of breast (principal); Z80.3 Family history of malignant neoplasm of breast
CPT/HCPCS: 77063; 77067

== ENCOUNTER 2024-09-03 15:24 | Emergency (ER) | payer BC, OTHER, SELFPAY ==
[2023-07-12 09:46] VITALS: PULSE 63; RESP 16; O2SAT 100
[2024-08-07 01:22] VITALS: BMI 26.5
[2024-09-03] VITALS (16 sets, daily range): BP systolic 120–198; BP diastolic 72–118; PULSE 80–102; RESP 17–29; TEMP 36.8; O2SAT 92–99; BMI 26.5
[2024-09-03 16:05] LABS: Add Manual Diff / Slide Review NO; Basophils Absolute Auto 0 /uL (0-100); Basophils Percent Auto 0.4 % (0-2); Eosinophils Absolute Auto 0 /uL (0-450); Eosinophils Percent Auto 0.1 % (2-4); Hematocrit 40.8 % (36-46); Hemoglobin 14.2 g/dL (12.0-16.0); Lymphocytes Absolute Auto 800 /uL (1100-4500); Lymphocytes Percent Auto 8.2 % (25-40); Mean Corpuscular HGB Conc 34.8 % (30-36); Mean Corpuscular Hemoglobin 32.8 PG (26-34); Mean Corpuscular Volume 94.2 fL (80-100); Monocytes Absolute Auto 400 /uL (0-900); Monocytes Percent Auto 4.5 % (3-14); Neutrophils Absolute Auto 8600 /uL (1500-7000); Neutrophils Percent Auto 86.8 % (50-75); Platelet Count 319 X10^3/uL (150-400); Red Blood Cell Count 4.32 X10^6/uL (4.0-5.2); Red Cell Distribution Width 13.3 % (11.6-14.8)
[2024-09-03 16:06] LABS: Albumin 4.9 g/dL (3.5-5.0); Albumin Globulin Ratio 1.1 (1.0-2.8); Alkaline Phosphatase 108 U/L (38-126); Bilirubin Total 0.9 mg/dL (0.2-1.3); Blood Urea Nitrogen 14 mg/dL (7-17); Calcium 10.2 mg/dL (8.4-10.2); Carbon Dioxide 23 mmol/L (22-32); Chloride 94 mmol/L (98-107); Estimated Glomerular Filt Rate > 60 mL/min (>60); Globulin 4.6 g/dL (1.7-4.1); Glucose 156 mg/dL (70-100); Lipase 86 U/L (23-300); Sodium 135 mmol/L (137-145); Total Protein 9.5 g/dL (6.3-8.2)
[2024-09-03 16:08] LABS: HEMOLYSIS 65 (0-50)
[2024-09-03 16:09] LABS: Aspartate Aminotransferase 46 IU/L (14-36); Potassium 3.3 mmol/L (3.4-5.1)
[2024-09-03 16:23] LABS: Alanine Aminotransferase 38 IU/L (<35)
[2024-09-03] MEDS: HALOPERIDOL 5 MG/ML VIAL 2 MG IV (16:25)
[2024-09-03] MEDS: diazePAM 10 MG/2 ML SYRINGE 2 MG IV (16:25)
[2024-09-03] MEDS: SODIUM CHLORIDE 0.9% 1,000 ML 1000 ML IV (16:25)
[2024-09-03] MEDS: HYDROMORPHONE 0.5 MG INJ IV (16:26)
--- NOTE | 2024-09-03 23:20 | ED.NAVMDI ---
HPI - Nausea/Vomiting/Diarrhea General Chief complaint: Nausea/Vomiting/Diarrhea Stated complaint: N/V/ABD PAIN Time Seen by Provider: 09/03/24 15:46 Source: patient and EMS Mode of arrival: EMS History of Present Illness HPI Narrative: Patient is a 48-year-old female who is well known to the emergency department for having episodes of chronic abdominal pain and cyclic vomiting. Most likely related to marijuana use. This morning at about 0900 hours in an onset of abdominal pain. She did smoke marijuana this morning. Has also had diarrhea. EMS was contacted. She did vomit multiple times in route here in the emergency department. Prior to my evaluation she has been treated with Haldol Zofran and pain medication. She has been sleeping for several hours. At 1 point she stated that she felt like her tongue was swelling. Per report she does have history of angioedema. No respiratory distress. Related Data Home Medications Medication Instructions Recorded Confirmed fluoxetine 20 mg capsule 20 mg PO DAILY 08/07/24 08/07/24 Previous Rx's Medication Instructions Recorded lorazepam 1 mg tablet (Ativan) 1 mg PO BID PRN anxiety #20 tabs 03/22/24 scopolamine base 1 mg over 3 days 1 patch topical Q72H #5 ea 03/22/24 transdermal patch (Transderm-Scop) promethazine 25 mg rectal 25 mg WI Q4-6H PRN nausea and 07/27/24 suppository vomiting #12 ea magnesium chloride 64 mg 64 mg PO BID #30 tabs 08/07/24 (magnesium chloride) tablet potassium chloride 20 mEq 20 meq PO BID #10 tabs 08/07/24 tablet,extended release Allergies Allergy/AdvReac Type Severity Reaction Status Date / Time latex [LATEX] Allergy Unknown Verified 08/06/24 17:09 metoclopramide AdvReac Unknown DYSTONIA Verified 08/06/24 17:09 [METOCLOPRAMIDE] ondansetron [From Zofran] AdvReac Unknown Verified 09/03/24 15:51 Review of Systems Review of Systems ROS Unobtainable: All systems reviewed & are unremarkable except as noted in HPI and below Patient History Medical History Family history of angioedema MRSA (methicillin resistant staph aureus) culture positive Abscess Marijuana use, continuous Chronic abdominal pain Pancreatitis Cyclic vomiting syndrome Surgical History Hx of appendectomy Hx of cholecystectomy Family History Father Hypertension Mother Diabetes mellitus Daughter Angio-edema Other Colon cancer Social History household members: spouse Smoking Status: Current every day smoker alcohol intake: current Smoking Status: Current every day smoker tobacco type: vaping alcohol intake frequency: 3 or more drinks per day Alcohol type: wine Substance Use Type: marijuana and crack/cocaine Exam Initial Vital Signs Initial Vital Signs: Vital Signs Temperature 98.3 F 09/03/24 15:36 Pulse Rate 100 H 09/03/24 15:36 Respiratory Rate 20 09/03/24 15:36 Blood Pressure 197/118 H 09/03/24 15:36 Pulse Oximetry 95 09/03/24 15:36 Oxygen Delivery Method Room Air 09/03/24 15:36 Const General: disheveled HENMT Head: normal to inspection and normocephalic Mouth: oral mucosae normal and tongue normal Throat: posterior oropharynx normal Resp Effort & Inspection: normal respiratory effort Auscultation: clear to auscultation bilaterally Cardio Rate: regular rate Rhythm: regular rhythm GI Inspection: non-distended Extrem General: capillary refill normal Course Orders Ordered: Discontinued Medications Diazepam (Diazepam 10 Mg/2 Ml Syringe) 2 mg IV NOW ONE Stop: 09/03/24 16:11 Last Admin: 09/03/24 16:25 Dose: 2 mg Documented By: ALEX Diphenhydramine HCl (Diphenhydramine 50 Mg/Ml Vial) 25 mg IV NOW ONE Stop: 09/03/24 23:21 Last Admin: 09/03/24 23:29 Dose: 25 mg Documented By: Haloperidol (Haloperidol 5 Mg/Ml Vial) 2 mg IV NOW ONE Stop: 09/03/24 16:11 Last Admin: 09/03/24 16:25 Dose: 2 mg Documented By: ALEX Hydromorphone HCl (Hydromorphone 0.5 Mg Inj) 0.5 mg IV NOW ONE Stop: 09/03/24 15:49 Last Admin: 09/03/24 16:26 Dose: 0.5 mg Documented By: ALEX Sodium Chloride (Normal Saline 0.9%) 1,000 mls @ 1,000 mls/hr IV BOLUS ONE Stop: 09/03/24 16:47 Last Infusion: 09/03/24 17:18 Dose: Infused Documented By: Admin: 09/03/24 16:25 Dose: 1,000 mls/hr Documented By: ALEX Ondansetron HCl (Ondansetron 4 Mg/2 Ml Inj) 4 mg IV NOW ONE Stop: 09/03/24 15:49 Last Admin: 09/03/24 15:55 Dose: Not Given Documented By: ALEX Vital Signs Vital signs: Vital Signs - 8 hr 09/03/24 17:30 09/03/24 17:30 09/03/24 18:00 Pulse Rate 90 80 Respiratory Rate 20 23 Blood Pressure 141/83 H Pulse Oximetry 97 99 Oxygen Delivery Method 09/03/24 18:00 09/03/24 18:30 09/03/24 18:30 Pulse Rate 95 H Respiratory Rate 22 Blood Pressure 157/92 H 198/104 H Pulse Oximetry 97 Oxygen Delivery Method 09/03/24 19:00 09/03/24 19:00 09/03/24 19:30 Pulse Rate 102 H Respiratory Rate 29 H Blood Pressure 183/89 H 184/100 H Pulse Oximetry 97 Oxygen Delivery Method 09/03/24 20:00 09/03/24 20:00 09/03/24 20:30 Pulse Rate 97 H Respiratory Rate 24 Blood Pressure 178/88 H 148/89 H Pulse Oximetry 96 Oxygen Delivery Method 09/03/24 20:30 09/03/24 21:00 09/03/24 21:00 Pulse Rate 95 H 93 H Respiratory Rate 24 26 H Blood Pressure 135/84 Pulse Oximetry 92 93 Oxygen Delivery Method 09/03/24 21:30 09/03/24 21:30 09/03/24 22:00 Pulse Rate 86 Respiratory Rate 18 Blood Pressure 138/88 120/72 Pulse Oximetry 96 Oxygen Delivery Method 09/03/24 22:00 09/03/24 22:30 09/03/24 22:30 Pulse Rate 89 88 Respiratory Rate 17 21 Blood Pressure 132/82 Pulse Oximetry 94 96 Oxygen Delivery Method 09/03/24 23:00 09/03/24 23:01 Pulse Rate 99 H 100 H Respiratory Rate 26 H 19 Blood Pressure Pulse Oximetry 96 96 Oxygen Delivery Method Room Air MDM - Nausea/Vomiting/Diarrhea Medical Records Attestation: I reviewed the patient's medical records. Lab Data Attestation: I reviewed the patient's lab results. 09/03/24 15:40 09/03/24 15:40 Labs: Lab Results 09/03/24 Range/Units 15:40 WBC 10.0 (4.5-11.0) X10^3/uL RBC 4.32 (4.0-5.2) X10^6/uL Hgb 14.2 (12.0-16.0) g/dL Hct 40.8 (36-46) % MCV 94.2 (80-100) fL MCH 32.8 (26-34) PG MCHC 34.8 (30-36) % RDW 13.3 (11.6-14.8) % Plt Count 319 (150-400) X10^3/uL Neut % (Auto) 86.8 H (50-75) % Lymph % (Auto) 8.2 L (25-40) % [place] % (Auto) 4.5 (3-14) % Eos % (Auto) 0.1 L (2-4) % Baso % (Auto) 0.4 (0-2) % Neut # (Auto) 8600 H (1547-4145) /uL Lymph # (Auto) 800 L (6089-4255) /uL [place] # (Auto) 400 (0-900) /uL Eos # (Auto) 0 (0-450) /uL Baso # (Auto) 0 (0-100) /uL Sodium 135 L (137-145) mmol/L Potassium 3.3 L (3.4-5.1) mmol/L Chloride 94 L (98-107) mmol/L Carbon Dioxide 23 (22-32) mmol/L BUN 14 (7-17) mg/dL Creatinine 0.70 (0.52-1.04) mg/dL Estimated GFR > 60 (>60) mL/min BUN/Creatinine Ratio 20.0 (6-22) Glucose 156 H (70-100) mg/dL Calcium 10.2 (8.4-10.2) mg/dL Total Bilirubin 0.9 (0.2-1.3) mg/dL AST 46 H (14-36) IU/L ALT 38 H (<35) IU/L Alkaline Phosphatase 108 (38-126) U/L Total Protein 9.5 H (6.3-8.2) g/dL Albumin 4.9 (3.5-5.0) g/dL Globulin 4.6 H (1.7-4.1) g/dL Albumin/Globulin Ratio 1.1 (1.0-2.8) Lipase 86 (23-300) U/L MDM Narrative Medical decision making narrative: Patient was treated with medications. She slept for multiple hours. There are no findings of angioedema on her exam today. Her tongue is not swollen. No respiratory distress. After multiple hours here in the emergency department will discharge patient home with return precautions. Discharge Plan Departure Patient Disposition: Home Clinical Impression: Abdominal pain, Cyclic vomiting syndrome Activity Restrictions/Additional Instructions: Continue to take all of your medications as directed. Do recommend that he abstain from smoking marijuana as this could make your cyclic vomiting symptoms worse. Return to the emergency department for new symptoms. Prescriptions: No Action fluoxetine 20 mg capsule 20 mg PO DAILY potassium chloride 20 mEq tablet extended release 20 meq PO BID Qty: 10 0RF magnesium chloride 64 mg magnesium tablet 64 mg PO BID Qty: 30 0RF scopolamine base [Transderm-Scop] 1 mg over 3 days Patch 3 Day 1 patch topical Q72H Qty: 5 0RF lorazepam [Ativan] 1 mg tablet 1 mg PO BID PRN (Reason: anxiety) Qty: 20 0RF promethazine 25 mg suppository 25 mg WI Q4-6H PRN (Reason: nausea and vomiting) Qty: 12 0RF Referrals: Miscellaneous,Doctor, MD [Primary Care Provider] - Stand Alone Forms: Patient Portal/API
[2024-09-03] MEDS: diphenhydrAMINE 50 MG/ML VIAL 25 MG IV (23:29)
== END 2024-09-03 23:45 | disposition home or self-care (01) ==
PROVIDERS: Emergency Medicine; Emergency Provider Emergency Medicine; Family Provider Internal Medicine
DX: R10.9 Unspecified abdominal pain (principal); G43.A0 Cyclical vomiting, in migraine, not intractable
CPT/HCPCS: 36415; 80053; 83690; 85025; 96361; 96374; 96375; 99284; J1171; J1200; J1630; J3360